=== PATIENT | male | born 1955 | race Caucasian/White ===

== ENCOUNTER 2018-06-30 11:15 | Inpatient (IN) | payer OTHER ==
[~2018-06-30] VITALS: Ht 172.7 cm; Wt 62.1 kg
[2018-06-30] MEDS ORDERED: LEVOTHYROXINE75 MCG ORAL (11:24)
[2018-06-30] MEDS ORDERED: ATORVASTATIN CA20 MG ORAL (11:24)
[2018-06-30] MEDS ORDERED: METOPROLOL TART25 MG ORAL (11:24)
[2018-06-30] MEDS ORDERED: ZYPREXA10 MG ORAL (11:24)
[2018-06-30] MEDS ORDERED: MIRTAZAPINE15 M3 ORAL (11:24)
[2018-06-30] MEDS ORDERED: DILTIAZEM 24HR180 M1 ORAL (11:24)
[2018-06-30] MEDS ORDERED: BENZTROPINE ME0.5 MG PO (11:24)
[2018-06-30] MEDS ORDERED: LISINOPRIL20 MG ORAL (11:24)
[2018-06-30] MEDS ORDERED: ELIQUIS5 MG PO (11:24)
[2018-06-30] MEDS ORDERED: DEPAKOTE ER500 MG ORAL (11:24)
[2018-06-30] MEDS ORDERED: GABAPENTIN100 MG ORAL (11:24)
[2018-06-30] MEDS ORDERED: Pantoprazole Inj IV ONE (11:30)
--- NOTE | 2018-06-30 11:30 | NUR ---
ED Nurse Note: Pt BIBA due to increased level of confusion since this morning. Pt came from board and care. Skin warm to touch. Rectal temp of 103.4 F. A + O x2. No complaints of pain.
--- NOTE | 2018-06-30 11:35 | NUR ---
ED Nurse Note: Notified ERMD of pt refusing straight cath for urine collection.
--- NOTE | 2018-06-30 11:53 | NUR ---
ED Nurse Note: Pt went down to CT.
[2018-06-30 11:54] VITALS: BP 107/76
[2018-06-30] MEDS ORDERED: Acetaminophen 500mg (ES) tab ORAL ONE (12:00)
--- NOTE | 2018-06-30 12:11 | NUR ---
ED Nurse Note: Pt back from CT.
[2018-06-30 12:16] LABS: ANION GAP 10 mmol/L (5-15); BLOOD UREA NITROGEN 26 mg/dL (7-18); CALCIUM 9.4 MG/DL (8.5-10.1); CARBON DIOXIDE 26 MMOL/L (21-32); CHLORIDE 103 MMOL/L (98-107); CREATININE 1.6 MG/DL (0.55-1.30); POTASSIUM 4.7 MMOL/L (3.5-5.1); SODIUM 139 MMOL/L (136-145)
[2018-06-30 12:17] LABS: AMMONIA 22 umol/L (11-32)
[2018-06-30 12:18] LABS: BASOPHILS % (AUTO) 1.6 % (0.0-2.0); EOSINOPHILS % (AUTO) 1.4 % (0.0-3.0); HEMATOCRIT 38.1 % (42.0-52.0); HEMOGLOBIN 12.9 G/DL (14.2-18.0); LYMPHOCYTES % (AUTO) 14.3 % (20.0-45.0); MEAN CORPUSCULAR VOLUME 88 FL (80-99); MONOCYTES % (AUTO) 9.7 % (1.0-10.0); PLATELET COUNT 149 K/UL (150-450); RED BLOOD COUNT 4.31 M/UL (4.70-6.10); RED CELL DISTRIBUTION WIDTH 15.7 % (11.6-14.8); WHITE BLOOD COUNT 7.1 K/UL (4.8-10.8)
[2018-06-30 12:20] LABS: ALANINE AMINOTRANSFERASE 12 U/L (12-78); ALBUMIN 3.3 G/DL (3.4-5.0); ALKALINE PHOSPHATASE 42 U/L (46-116); ASPARTATE AMINO TRANSFERASE 26 U/L (15-37); BILIRUBIN,TOTAL 0.4 MG/DL (0.2-1.0)
--- NOTE | 2018-06-30 12:25 | Diagnostic Imaging Report ---
Indications: Altered level of consciousness Technique: Spiral acquisitions obtained through the brain. Angled axial and coronal 5 x 5 mm slices were reconstructed. Total dose length product 1467.58 mGycm. CTDI vol(s) 70.38 mGy. Dose reduction achieved using automated exposure control Comparison: None. Findings: There is age-related enlargement of the ventricles and extra axial CSF spaces. No acute intracranial hemorrhage nor edema, mass effect, nor midline shift. Normal carcamo-white differentiation. Intact calvarium. Visualized orbits are unremarkable. There is bilateral ethmoid and maxillary sinus disease. The mastoids are clear. Impression: Age-related volume loss Negative for acute intracranial bleed or mass effect The CT scanner at [facility] is accredited by the [employer] and the scans are performed using protocols designed to limit radiation exposure to as low as reasonably achievable to attain images of sufficient resolution adequate for diagnostic evaluation.
--- NOTE | 2018-06-30 12:43 | Diagnostic Imaging Report ---
Indication: Abdominal pain Technique: Spiral acquisitions obtained through the abdomen and pelvis. No oral contrast utilized, per emergency room physician request No IV contrast utilized, per referring physician request.. Multiplanar reconstructions were generated. Total dose length product 532.14 mGycm. CTDIvol(s) 10.51 mGy. Dose reduction achieved using automated exposure control Comparison: None Findings: Lack of enteric contrast limits assessment of the GI tract. Some dense stool is seen distally in the colon. No evidence of diverticulosis or diverticulitis. The appendix is normal except for a distal appendicolith. Prominent borderline dilated gas-filled small bowel loops are seen in the left upper quadrant, without definite transition point. The distal esophagus, stomach, duodenum are unremarkable. No free or loculated intraperitoneal gas or fluid is evident. There are small bilateral inguinal hernias which contain only fat. Lack of IV contrast limits assessment of the solid organs. The liver demonstrates a subcentimeter low-attenuation lesion in segment 3 and another in segment 7 which are too small to characterize. The gallbladder, bile ducts, pancreas, spleen, adrenals are unremarkable. There are a few slightly prominent peripancreatic lymph nodes. There is minimal bilateral perinephric fat stranding. No renal or ureteral calculi, hydronephrosis, or hydroureter. No retroperitoneal or mesenteric mass or adenopathy. No pelvic mass or adenopathy. The bladder is unremarkable. The prostate is somewhat prominent, contains calcifications. The included lung bases demonstrate possible hyperinflation. Some scarring or atelectasis is seen in the inferior lingula. The bones are equivocally osteoporotic, otherwise unremarkable. Impression: Limited assessment of the GI tract, due to lack of enteric contrast administration Prominent gas-filled proximal small bowel loops without definite transition point, nonspecific, could represent mild ileus or enteritis or could be baseline for this patient Possible mild constipation No definite acute process otherwise Possible pulmonary parenchymal hyperinflation. Correlate with clinical history Inferior lingular atelectasis or scarring Minimal nonspecific bilateral perinephric fat stranding Subcentimeter low-attenuation liver lesions, too small to characterize, most likely benign simple cysts or bile hamartomas Mild prostatomegaly with calcifications Possible osteoporosis Incidental finding small bilateral fat-containing inguinal hernias The CT scanner at [facility] is accredited by the [employer] and the scans are performed using protocols designed to limit radiation exposure to as low as reasonably achievable to attain images of sufficient resolution adequate for diagnostic evaluation.
[2018-06-30] MEDS ORDERED: Piperacillin/Tazobactam 4.5 GM in NS 110 ML IVPB ONE (12:45)
--- NOTE | 2018-06-30 13:04 | NUR ---
ED Nurse Note: Lactic acid reflex sent to lab.
--- NOTE | 2018-06-30 14:38 | Emergency Room Report ---
History of Present Illness General Chief Complaint: Altered Level of Consciousness Source: Patient, Medical Record, EMS Present Illness HPI Patient presents emergency department today with acute altered mental status weakness vomiting and fever. Patient is a poor historian and unable to provide much history. However he denies headache. Complains of generalized weakness. No other complaints are noted. Symptoms are noted to be severe. [facility] was noted to be more confused than usual and was brought here further evaluation. Paramedics brought him here. No other modifying factors. No other associated signs and symptoms. No other complaints were noted. Allergies: Coded Allergies: ZIPRASIDONE (Verified Allergy, Unknown, 06/30/18) Uncoded Allergies: RESPERIDONE (Allergy, Unknown, 06/30/18) Patient History Past Medical History: HTN, psych hx - Anxiety, schizophrenia Past Surgical History: none Pertinent Family History: none Social History Narrative stays at a [facility] Reviewed Nursing Documentation: PMH: Agreed; PSxH: Agreed Nursing Documentation-PMH Past Medical History: No History, Except For Hx Hypertension: Yes - hyperlipidemia, hypothyroidism History Of Psychiatric Problem: Yes - anxiety, schizophrenia Review of Systems All Other Systems: negative except mentioned in HPI Physical Exam Vital Signs Date Time Temp Pulse Resp B/P (MAP) Pulse Ox O2 Delivery O2 Flow Rate FiO2 06/30/18 11:13 102.4 87 16 136/79 99 Room Air 06/30/18 11:54 95 Sp02 EP Interpretation: reviewed, normal General Appearance: alert, mild distress - Appears interactive but weak sleepy Head: atraumatic ENT: normal ENT inspection, hearing grossly normal, normal voice Neck: normal inspection, full range of motion, supple, no bony tend Respiratory: normal inspection, lungs clear, normal breath sounds, no respiratory distress, no retraction, no wheezing Cardiovascular #1: regular rate, rhythm, no edema Gastrointestinal: normal inspection, normal bowel sounds, non tender, soft, no guarding, no hernia Genitourinary: no CVA tenderness Musculoskeletal: normal inspection, back normal, normal range of motion Neurologic: normal inspection, alert, responsive, speech normal Psychiatric: normal inspection, judgement/insight normal, depressed affect Skin: normal inspection, normal color, no rash Procedures Critical Care Time Critical Care Time Patient had a critical medical condition which untreated could potentially result in life or limb threatening injury. Total critical care time excluding procedures was approximately 45 minutes. Medical Decision Making Diagnostic Impression: Primary Impression: Altered level of consciousness Additional Impressions: Fever Severe sepsis A-fib Pneumonia ER Course Patient presents emergency department today with altered mental status fever. Differential diagnoses include sepsis, UTI, pneumonia, viral syndrome, CVA, intra-abdominal emergency just to name a few.Given the severity of the patient' s presentation I felt this is a highly complex patient. This patient required extensive workup. Patient's laboratory workup is concerning because shows an elevated lactic acid level this in light of patient's fever suggestive sepsis. This is consistent with severe sepsis. Differential is a critical patient. Patient was started on IV antibiotics. Patient IV antibiotics were started after blood cultures were obtained. Patient's chest appeared that show questionable pneumonia patient was given Zosyn. Patient also has evidence atrial fibrillation with rapid conduction. Although he is not hemodynamically unstable at this time. Given patient's presentation for the patient quite admission. Patient was given fluid bolus 30 mL/kg fluid bolus. Patient's lactic acid level did improve. Focused sepsis exam was performed. Patient had adequate blood pressure vital signs are stable O2 saturation was 97% repeat lactic acid level was improved. Case was discussed in detail with Dr. Pao Hernandez was automation machine builder for admissions. Patient will be admitted to service further treatment. Labs Test 06/30/18 11:35 06/30/18 12:58 White Blood Count 7.1 K/UL (4.8-10.8) Red Blood Count 4.31 M/UL (4.70-6.10) Hemoglobin 12.9 G/DL (14.2-18.0) Hematocrit 38.1 % (42.0-52.0) Mean Corpuscular Volume 88 FL (80-99) Mean Corpuscular Hemoglobin 29.9 PG (27.0-31.0) Mean Corpuscular Hemoglobin Concent 33.8 G/DL (32.0-36.0) Red Cell Distribution Width 15.7 % (11.6-14.8) Platelet Count 149 K/UL (150-450) Mean Platelet Volume 6.8 FL (6.5-10.1) Neutrophils (%) (Auto) 73.0 % (45.0-75.0) Lymphocytes (%) (Auto) 14.3 % (20.0-45.0) Monocytes (%) (Auto) 9.7 % (1.0-10.0) Eosinophils (%) (Auto) 1.4 % (0.0-3.0) Basophils (%) (Auto) 1.6 % (0.0-2.0) Prothrombin Time 10.9 SEC (9.30-11.50) Prothromb Time International Ratio 1.0 (0.9-1.1) Activated Partial Thromboplast Time 26 SEC (23-33) Sodium Level 139 MMOL/L (136-145) Potassium Level 4.7 MMOL/L (3.5-5.1) Chloride Level 103 MMOL/L (98-107) Carbon Dioxide Level 26 MMOL/L (21-32) Anion Gap 10 mmol/L (5-15) Blood Urea Nitrogen 26 mg/dL (7-18) Creatinine 1.6 MG/DL (0.55-1.30) Estimat Glomerular Filtration Rate 43.6 mL/min (>60) Glucose Level 94 MG/DL (74-106) Lactic Acid Level 2.20 mmol/L (0.4-2.0) 1.20 mmol/L (0.66-2.22) Calcium Level 9.4 MG/DL (8.5-10.1) Total Bilirubin 0.4 MG/DL (0.2-1.0) Aspartate Amino Transf (AST/SGOT) 26 U/L (15-37) Alanine Aminotransferase (ALT/SGPT) 12 U/L (12-78) Alkaline Phosphatase 42 U/L (46-116) Ammonia 22 umol/L (11-32) Troponin I 0.014 ng/mL (0.000-0.056) Total Protein 6.7 G/DL (6.4-8.2) Albumin 3.3 G/DL (3.4-5.0) Globulin 3.4 g/dL Albumin/Globulin Ratio 1.0 (1.0-2.7) Lipase 55 U/L (73-393) EKG Diagnostic Results Rate: tachycardiac Rhythm: other - Atrial fibrillation ST Segments: no acute changes Rhythm Strip Diag. Results EP Interpretation: yes Rate: 130 Rhythm: no PVC's, other - Atrial fibrillation, No other ectopy Chest X-Ray Diagnostic Results Chest X-Ray Diagnostic Results : Chest X-Ray Ordered: Yes # of Views/Limited/Complete: 1 View Indication: Shortness of Breath EP Interpretation: Yes Interpretation: no effusion, no pneumothorax, other - Left-sided infiltrate Impression: Other - Pneumonia Electronically Signed by: Electronically signed by Cruz Greene MD Last Vital Signs Date Time Temp Pulse Resp B/P (MAP) Pulse Ox O2 Delivery O2 Flow Rate FiO2 06/30/18 12:44 97.3 06/30/18 11:54 130 31 Room Air 95 06/30/18 11:54 107/76 95 Status: improved Disposition: ADMITTED INPATIENT Condition: Serious Referrals: NON PHYSICIAN (PCP) Cruz Greene MD Jun 30, 2018 14:38
[2018-06-30 14:49] VITALS: BP 91/62
--- NOTE | 2018-06-30 15:28 | Diagnostic Imaging Report ---
Indication: Cough Technique: One view of the chest Comparison: none Findings: There is some atelectasis at the left lung base. Lungs and pleural spaces are otherwise clear. The heart size is upper limits of normal Impression: Left basilar atelectasis versus, less likely, focal patchy infiltrate This agrees with the preliminary interpretation provided by the emergency room physician
[2018-06-30] MEDS ORDERED: LORazepam Inj 2mg/ml 1ml IV ONE (15:30)
--- NOTE | 2018-06-30 16:49 | NUR ---
ED Nurse Note: Gave telephone report to ELLA Barfield.
--- NOTE | 2018-06-30 17:00 | NUR ---
ED Nurse Note: Pt transferred to unit with no acute distress noted. No complaints of pain. Left ER w/ all belongings.
[2018-06-30 17:21] VITALS: BP 126/78
--- NOTE | 2018-06-30 17:39 | NUR ---
NURSE NOTES: paged dr Guzman re ivf , as per dr Pike call him for ivf since pt is to be npo except ice chips meds per dr Pike, dc home meds, keep pt npo (call dr Guzman for ivf) , scd for embolism prevention, tylenol q6 prn
--- NOTE | 2018-06-30 17:40 | NUR ---
NURSE NOTES: received pt sacral intact., aox3, no distress. denies pain. pt does not remember meds specifically. call light within reach. pt wants to go home, relayed to Dr Pike. Addendum: 06/30/18 at 1741 by STEVO WEEKS RN bed in lowest position, locked.
[2018-06-30] MEDS: D5NS 1,000 ML IV SCH (17:47)
--- NOTE | 2018-06-30 17:59 | Consultation ---
Consult Note Consult Note asked to eval for renal failure- Seen in ER Patient presents emergency department today with acute altered mental status weakness vomiting and fever. Patient is a poor historian and unable to provide much history. However he denies headache. Complains of generalized weakness. No other complaints are noted. Symptoms are noted to be severe. Patient apparently stays at a boarding care was noted to be more confused than usual and was brought here further evaluation. Paramedics brought him here. No other modifying factors. No other associated signs and symptoms. No other complaints were noted. Coded Allergies: ZIPRASIDONE (Verified Allergy, Unknown, 06/30/18) Uncoded Allergies: RESPERIDONE (Allergy, Unknown, 06/30/18) Past Medical History: HTN, psych hx - Anxiety, schizophrenia Past Medical History: No History, Except For Hx Hypertension: Yes - hyperlipidemia, hypothyroidism History Of Psychiatric Problem: Yes - anxiety, schizophrenia examined data reviewed Assessment/Plan Renal failure, Dehydration Encephalopathy Psych history HypoThyroidism Mild Anemia NPO IV fluid Hold BP meds Adjusy psych and mind altering meds per psychiatrist watch BP and monitor renal parameters Lisandro Guzman MD Jun 30, 2018 17:59
--- NOTE | 2018-06-30 18:57 | NUR ---
NURSE NOTES: PT WANTS TO EAT, LEFT MSG TO DR QUINTERO WHY PT NEEDS TO BE NPO, AWAITING RESPONSE, IVF RUNNING
--- NOTE | 2018-06-30 19:05 | NUR ---
NURSE NOTES: Received pt. and report from ELLA Barfield. Observe pt. resting in bed with both eyes open. IV site is intact, asymptomatic, and patent. skin care consultant is in placed, bed is in the lowest position and locked, call light within reach. No acute distress noted at this time. Pt. is complaining of hunger. Will contact Dr. Pike regarding pt.'s diet. Will continue plan of care.
--- NOTE | 2018-06-30 19:11 | NUR ---
NURSE NOTES: also left msg to dr Pike re episode of 133hr with afib rvr in er, but now pt is sr 90s. asymptomatic. awatiing response, endorsed to oncoming nurse ELLA Self
--- NOTE | 2018-06-30 19:12 | NUR ---
HAND-OFF: Report given to RENUKA JARAMILLO.
--- NOTE | 2018-06-30 19:29 | NUR ---
NURSE NOTES: Relayed to Dr May re consult, received orders, orders entered, md only wanted to resume cardiac related meds. md aware of episode of afib rvr in ER Addendum: 06/30/18 at 1930 by STEVO WEEKS RN per Dr May no need to resume lisnopril
[2018-06-30 20:00] VITALS: BP 136/83
[2018-06-30] MEDS: Metoprolol Tartrate 50mg tab ORAL SCH (20:36)
[2018-06-30] MEDS: Tamsulosin 0.4mg cap ORAL SCH (20:36)
[2018-07-01 02:47] LABS: APPEARANCE,URINE CLEAR; BILIRUBIN, URINE NEGATIVE (NEGATIVE); COLOR,URINE PALE YELLOW; GLUCOSE, URINE (UA) NEGATIVE (NEGATIVE); KETONES,URINE NEGATIVE (NEGATIVE); LEUKOCYTE ESTERASE ,URINE NEGATIVE (NEGATIVE); NITRITE,URINE NEGATIVE (NEGATIVE); PH,URINE 7 (4.5-8.0); PROTEIN,URINE NEGATIVE (NEGATIVE); UROBILINOGEN,URINE NORMAL MG/DL (0.0-1.0)
[2018-07-01 04:00] VITALS: BP 133/95
[2018-07-01 07:03] LABS: BASOPHILS % (AUTO) 1.1 % (0.0-2.0); EOSINOPHILS % (AUTO) 3.4 % (0.0-3.0); HEMATOCRIT 32.7 % (42.0-52.0); HEMOGLOBIN 10.7 G/DL (14.2-18.0); LYMPHOCYTES % (AUTO) 32.3 % (20.0-45.0); MEAN CORPUSCULAR VOLUME 92 FL (80-99); MONOCYTES % (AUTO) 13.7 % (1.0-10.0); NEUTROPHILS % (AUTO) 49.6 % (45.0-75.0); PLATELET COUNT 123 K/UL (150-450); RED BLOOD COUNT 3.57 M/UL (4.70-6.10); WHITE BLOOD COUNT 5.7 K/UL (4.8-10.8)
[2018-07-01] MEDS: D5NS 1,000 ML IV SCH ×3 (07:08→15:33)
--- NOTE | 2018-07-01 07:45 | NUR ---
NURSE NOTES: Received report from Krystal RN in bed resting, a & o x4, denies any pain. Bed is in lowest position, IV is patent and intact, IV fluid running. Brakes engaged for safety. Call light is within reach. Will continue with the plan of care.
--- NOTE | 2018-07-01 07:45 | NUR ---
HAND-OFF: Report given to ELLA Wall.
[2018-07-01 07:48] LABS: ALANINE AMINOTRANSFERASE 13 U/L (12-78); ALBUMIN 2.8 G/DL (3.4-5.0); ALBUMIN/GLOBULIN RATIO 0.9 (1.0-2.7); ALKALINE PHOSPHATASE 35 U/L (46-116); ANION GAP 5 mmol/L (5-15); ASPARTATE AMINO TRANSFERASE 15 U/L (15-37); BILIRUBIN,TOTAL 0.4 MG/DL (0.2-1.0); BLOOD UREA NITROGEN 27 mg/dL (7-18); CALCIUM 8.9 MG/DL (8.5-10.1); CARBON DIOXIDE 30 MMOL/L (21-32); CHLORIDE 108 MMOL/L (98-107); CHOLESTEROL 108 MG/DL (< 200); CREATINE KINASE 113 U/L (26-308); CREATININE 1.3 MG/DL (0.55-1.30); GAMMA GLUTAMYL TRANSPEPTIDASE 15 U/L (5-85); HDL CHOLESTEROL 44 MG/DL (40-60); POTASSIUM 4.1 MMOL/L (3.5-5.1); SODIUM 143 MMOL/L (136-145); TRIGLYCERIDES 34 MG/DL (30-150)
[2018-07-01 08:00] VITALS: BP 139/72
[2018-07-01] MEDS: Metoprolol Tartrate 50mg tab ORAL SCH ×2 (08:46→21:27)
[2018-07-01] MEDS: dilTIAZem HCl CD 180mg cap ORAL SCH (08:47)
[2018-07-01] MEDS: Eliquis 2.5mg tablet ORAL SCH ×2 (08:48→18:00)
[2018-07-01] MEDS ORDERED: Pantoprazole Inj IVP SCH (09:00)
[2018-07-01 12:00] VITALS: BP 158/95
--- NOTE | 2018-07-01 13:07 | Cardiac Electrophysiology PN ---
Subjective Subjective [id number] Objective Last 24 Hour Vital Signs Date Time Temp Pulse Resp B/P (MAP) Pulse Ox O2 Delivery O2 Flow Rate FiO2 07/01/18 09:00 Room Air 07/01/18 08:47 76 139/72 07/01/18 08:46 76 139/72 07/01/18 08:00 98.1 78 17 139/72 (94) 96 07/01/18 08:00 78 07/01/18 04:00 97.2 92 18 133/95 (108) 96 07/01/18 03:24 84 06/30/18 23:25 83 06/30/18 21:00 Room Air 06/30/18 20:36 70 136/83 06/30/18 20:00 86 06/30/18 20:00 97.5 70 16 136/83 (100) 97 06/30/18 17:28 Room Air 06/30/18 17:24 98.2 100 22 120/74 98 Room Air 06/30/18 17:21 98.7 86 20 126/78 (94) 99 06/30/18 14:49 97.3 136 23 91/62 96 Room Air 95 Intake and Output 06/30/18 07/01/18 19:00 07:00 Intake Total 3100 ml 1080 ml Output Total 400 ml Balance 3100 ml 680 ml Intake Oral 180 ml IV Total 3100 ml 900 ml Output Urine Total 400 ml # Voids 1 # Bowel Movements 1 Laboratory Tests Test 07/01/18 02:35 07/01/18 04:46 Urine Color Pale yellow Urine Appearance Clear Urine pH 7 (4.5-8.0) Urine Specific [place] 1.010 (1.005-1.035) Urine Protein Negative (NEGATIVE) Urine Glucose (UA) Negative (NEGATIVE) Urine Ketones Negative (NEGATIVE) Urine Blood Negative (NEGATIVE) Urine Nitrite Negative (NEGATIVE) Urine Bilirubin Negative (NEGATIVE) Urine Urobilinogen Normal MG/DL (0.0-1.0) Urine Leukocyte Esterase Negative (NEGATIVE) Urine RBC 0 /HPF (0 - 0) Urine WBC 0 /HPF (0 - 0) Urine Squamous Epithelial Cells None /LPF (NONE/OCC) Urine Bacteria None /HPF (NONE) White Blood Count 5.7 K/UL (4.8-10.8) Red Blood Count 3.57 M/UL (4.70-6.10) L Hemoglobin 10.7 G/DL (14.2-18.0) L Hematocrit 32.7 % (42.0-52.0) L Mean Corpuscular Volume 92 FL (80-99) Mean Corpuscular Hemoglobin 29.9 PG (27.0-31.0) Mean Corpuscular Hemoglobin Concent 32.6 G/DL (32.0-36.0) Red Cell Distribution Width 16.0 % (11.6-14.8) H Platelet Count 123 K/UL (150-450) L Mean Platelet Volume 6.8 FL (6.5-10.1) Neutrophils (%) (Auto) 49.6 % (45.0-75.0) Lymphocytes (%) (Auto) 32.3 % (20.0-45.0) Monocytes (%) (Auto) 13.7 % (1.0-10.0) H Eosinophils (%) (Auto) 3.4 % (0.0-3.0) H Basophils (%) (Auto) 1.1 % (0.0-2.0) Sodium Level 143 MMOL/L (136-145) Potassium Level 4.1 MMOL/L (3.5-5.1) Chloride Level 108 MMOL/L (98-107) H Carbon Dioxide Level 30 MMOL/L (21-32) Anion Gap 5 mmol/L (5-15) Blood Urea Nitrogen 27 mg/dL (7-18) H Creatinine 1.3 MG/DL (0.55-1.30) Estimat Glomerular Filtration Rate 55.4 mL/min (>60) Glucose Level 131 MG/DL (74-106) H Hemoglobin A1c 6.1 % (4.3-6.0) H Uric Acid 5.2 MG/DL (2.6-7.2) Calcium Level 8.9 MG/DL (8.5-10.1) Phosphorus Level 3.0 MG/DL (2.5-4.9) Magnesium Level 2.0 MG/DL (1.8-2.4) Total Bilirubin 0.4 MG/DL (0.2-1.0) Gamma Glutamyl Transpeptidase 15 U/L (5-85) Aspartate Amino Transf (AST/SGOT) 15 U/L (15-37) Alanine Aminotransferase (ALT/SGPT) 13 U/L (12-78) Alkaline Phosphatase 35 U/L (46-116) L Total Creatine Kinase 113 U/L (26-308) Troponin I 0.027 ng/mL (0.000-0.056) Pro-B-Type Natriuretic Peptide 2740 pg/mL (0-125) H Total Protein 5.9 G/DL (6.4-8.2) L Albumin 2.8 G/DL (3.4-5.0) L Globulin 3.1 g/dL Albumin/Globulin Ratio 0.9 (1.0-2.7) L Triglycerides Level 34 MG/DL (30-150) Cholesterol Level 108 MG/DL (< 200) LDL Cholesterol 55 mg/dL (<100) HDL Cholesterol 44 MG/DL (40-60) Cholesterol/HDL Ratio 2.5 (3.3-4.4) L Vitamin B12 Level 799 PG/ML (193-986) Folate 7.5 NG/ML (8.6-58.9) L Thyroid Stimulating Hormone (TSH) 4.349 uiU/mL (0.358-3.740) Microbiology Date/Time Source Procedure Growth Status 06/30/18 12:50 Nasal Nares Influenza Types A,B Antigen ([facility]IS) - Final Complete Armin May MD Jul 01, 2018 13:07
--- NOTE | 2018-07-01 15:00 | NUR ---
NURSE NOTES: Patient took IV out twice, refused another IV access, keeps taking out cardiac strips. Patient is non compliace with episodes of confusion. prisoner classification interviewer aware. Notify MD, awaiting reply. Will continue to monitor. Addendum: 07/01/18 at 1705 by STEVO WEEKS RN Dr Pike made aware pt desire to go home and removing iv and tele monitor , asked md if ok to downgrade or dc per md up to cardio ,left msg to Dr May awaiting response
--- NOTE | 2018-07-01 15:01 | Nephrology Progress Note ---
Assessment/Plan Problem List: (1) Dehydration (2) A-fib Assessment Renal failure, Dehydration Encephalopathy Psych history HypoThyroidism Mild Anemia Plan cardiac diet IV fluid adjust BP meds Adjusy psych and mind altering meds per psychiatrist watch BP and monitor renal parameters Subjective ROS Limited/Unobtainable: No Objective Objective Last 24 Hour Vital Signs Date Time Temp Pulse Resp B/P (MAP) Pulse Ox O2 Delivery O2 Flow Rate FiO2 07/01/18 12:00 65 07/01/18 12:00 98.1 65 18 158/95 (116) 95 07/01/18 09:00 Room Air 07/01/18 08:47 76 139/72 07/01/18 08:46 76 139/72 07/01/18 08:00 98.1 78 17 139/72 (94) 96 07/01/18 08:00 78 07/01/18 04:00 97.2 92 18 133/95 (108) 96 07/01/18 03:24 84 06/30/18 23:25 83 06/30/18 21:00 Room Air 06/30/18 20:36 70 136/83 06/30/18 20:00 86 06/30/18 20:00 97.5 70 16 136/83 (100) 97 06/30/18 17:28 Room Air 06/30/18 17:24 98.2 100 22 120/74 98 Room Air 06/30/18 17:21 98.7 86 20 126/78 (94) 99 Intake and Output 06/30/18 07/01/18 18:59 06:59 Intake Total 3100 ml 1080 ml Output Total 400 ml Balance 3100 ml 680 ml Intake Oral 180 ml IV Total 3100 ml 900 ml Output Urine Total 400 ml # Voids 1 # Bowel Movements 1 Laboratory Tests 07/01/18 02:35: Urine Color Pale yellow, Urine Appearance Clear, Urine pH 7, Urine Specific [place] 1.010, Urine Protein Negative, Urine Glucose (UA) Negative, Urine Ketones Negative, Urine Blood Negative, Urine Nitrite Negative, Urine Bilirubin Negative, Urine Urobilinogen Normal, Urine Leukocyte Esterase Negative, Urine RBC 0, Urine WBC 0, Urine Squamous Epithelial Cells None, Urine Bacteria None 07/01/18 04:46: White Blood Count 5.7, Red Blood Count 3.57L, Hemoglobin 10.7L, Hematocrit 32.7L , Mean Corpuscular Volume 92, Mean Corpuscular Hemoglobin 29.9, Mean Corpuscular Hemoglobin Concent 32.6, Red Cell Distribution Width 16.0H, Platelet Count 123L, Mean Platelet Volume 6.8, Neutrophils (%) (Auto) 49.6, Lymphocytes (%) (Auto) 32.3, Monocytes (%) (Auto) 13.7H, Eosinophils (%) (Auto) 3.4H, Basophils (%) (Auto) 1.1, Sodium Level 143, Potassium Level 4.1, Chloride Level 108H, Carbon Dioxide Level 30, Anion Gap 5, Blood Urea Nitrogen 27H, Creatinine 1.3, Estimat Glomerular Filtration Rate 55.4, Glucose Level 131H, Hemoglobin A1c 6.1H, Uric Acid 5.2, Calcium Level 8.9, Phosphorus Level 3.0, Magnesium Level 2.0, Total Bilirubin 0.4, Gamma Glutamyl Transpeptidase 15, Aspartate Amino Transf (AST/SGOT) 15, Alanine Aminotransferase (ALT/SGPT) 13, Alkaline Phosphatase 35L, Total Creatine Kinase 113, Troponin I 0.027, Pro-B- Type Natriuretic Peptide 2740H, Total Protein 5.9L, Albumin 2.8L, Globulin 3.1, Albumin/Globulin Ratio 0.9L, Triglycerides Level 34, Cholesterol Level 108, LDL Cholesterol 55, HDL Cholesterol 44, Cholesterol/HDL Ratio 2.5L, Vitamin B12 Level 799, Folate 7.5L, Thyroid Stimulating Hormone (TSH) 4.349H Height (Feet): 5 Height (Inches): 8.00 Weight (Pounds): 137 General Appearance: no apparent distress Cardiovascular: arrhythmia Respiratory/Chest: decreased breath sounds Abdomen: soft Lisandro Guzman MD Jul 01, 2018 15:01
[2018-07-01 16:00] VITALS: BP 150/82
--- NOTE | 2018-07-01 16:24 | Cardiology Report ---
APPROVED REPORT EXAM: Two-dimensional and M-mode echocardiogram with Doppler and color Doppler. INDICATION TACHYCARDIA M-Mode DIMENSIONS IVSd0.9 (0.7-1.1cm)Left Atrium (MM)3.1 (1.6-4.0cm) LVDd3.8 (3.5-5.6cm)Aortic Root2.7 (2.0-3.7cm) PWd0.9 (0.7-1.1cm)Aortic Cusp Exc.1.6 (1.5-2.0cm) IVSs1.4 cm LVDs2.7 (2.5-4.0cm) PWs0.9 cm Technically difficult study due to poor acoustical windows. Normal left ventricular chamber size, systolic function and wall motion to extent visualized. Left ventricular ejection fraction estimated to be 60-65 %. No evidence of left ventricular hypertrophy. Anterior Echo-free space, may be due to pericardial fat or effusion. All other cardiac chamber sizes within normal limits . Mild aortic valve sclerosis with adequate cusp excursion. Thickened mitral valve leaflets with normal excursion. Mild mitral annulus and aortic root calcification. Pulmonic valve not well visualized. IVC at normal size with physiologic collapse . A color flow and spectral Doppler study was performed and revealed: No aortic regurgitation. Left ventricular diastolic function can not determined due to A-FIB. Trace mitral regurgitation. Mild tricuspid regurgitation. Tricuspid systolic velocities suggests peak right ventricular systolic pressure of 30mmHg.
--- NOTE | 2018-07-01 17:03 | Cardiology Report ---
APPROVED REPORT EKG Measurement Heart [id number] Atrial fibrillation with rapid ventricular response Nonspecific ST abnormality Abnormal ECG
--- NOTE | 2018-07-01 18:15 | Consultation ---
Consult Note Assessment/Plan DICT # [id number] John Mohamud MD Jul 01, 2018 18:15
--- NOTE | 2018-07-01 19:15 | NUR ---
NURSE NOTES: Received pt. from ELLA Wall. Observe pt. resting in bed with both eyes open. Pt. is A/O x3. Pt. removed human anatomy teacher and IV during the day and continues to refuse both. When asked why he refused the human anatomy teacher and IV fluids, pt. answered, "I feel better. I want to go home." Educated pt. on the importance of the human anatomy teacher and IV fluids. Dr. Pike is aware that pt. is refusing. Bed is in the lowest position and locked, call light is within reach. No acute distress noted at this time. Will continue plan of care.
--- NOTE | 2018-07-01 19:28 | NUR ---
HAND-OFF: Report given to ELLA Rice. Endorsed plan of care. Patient is in stable condition.
--- NOTE | 2018-07-01 19:30 | Consultation ---
DATE OF CONSULTATION: 07/01/2018 CARDIOLOGY CONSULTATION CONSULTING PHYSICIAN: Armin May M.D. REFERRING PHYSICIAN: Pao Pike M.D. REASON FOR CONSULTATION: Atrial fibrillation with rapid ventricular response. HISTORY OF PRESENT ILLNESS: The patient is a 63-year-old gentleman with history of hypertension, psychiatric history, and schizophrenia as well as anxiety disorder who was brought to the emergency room for acute altered mental status and weakness, vomiting, and fever. The patient is a very poor historian, unable to provide meaningful information. EKG that was obtained however showed atrial fibrillation with rapid ventricular response, heart rate 132 beats per minute with nonspecific ST abnormalities. At the time of my evaluation, the patient is alert and comfortable. The patient has already converted to sinus rhythm. REVIEW OF SYSTEMS: Review of systems was negative other than what was mentioned in the history of present illness. PAST MEDICAL HISTORY: As mentioned above. FAMILY HISTORY: Noncontributory. SOCIAL HISTORY: He lives in a facility. Does not smoke or drink alcohol. PHYSICAL EXAMINATION: VITAL SIGNS: Show blood pressure of 139/72, pulse 73, respirations 18, and temperature 98.1 even though on admission the patient had temperature as high as 103.4. HEAD AND NECK: Showed no JVD. LUNGS: Clear. CARDIOVASCULAR: Regular S1 and S2 with no gallop or murmur. ABDOMEN: Soft. EXTREMITIES: No pitting edema. LABORATORY AND DIAGNOSTIC DATA: His EKG showed atrial fibrillation with rapid ventricular response, rate of [address] abnormalities. Labs show white count 5.7, hematocrit 10.7, hematocrit 33, and platelet count of 123. Sodium is 142, potassium 4.1, BUN of 27, creatinine 1.3, and glucose of 131. Troponin is negative x2. ASSESSMENT AND PLAN: 1. Atrial fibrillation with rapid ventricular response. There is no clear history of atrial fibrillation, the patient already converted to sinus rhythm. This could have been secondary to acute pneumonic process. Continue Cardizem 180 mg daily, Eliquis 5 mg b.i.d., and metoprolol 50 mg b.i.d. It is of note that based on his medical regimen, the patient most likely has history of hypertension as well as atrial fibrillation. 2. Fever of 103. The patient currently is afebrile. Further evaluation by ID. 3. Benign prostatic hypertrophy on Flomax. 4. Hypertension. Continue Cardizem CD 180 mg daily and metoprolol 50 mg b.i.d. Thank you very much, Dr. Pike, for allowing me to participate in the care of this patient. Please do not hesitate to contact me for any questions regarding my evaluation. Sincerely, Armin May M.D. DR: Annabel JOB#: [id number] CC:
[2018-07-01 20:00] VITALS: BP 154/93
--- NOTE | 2018-07-01 20:06 | NUR ---
CASE MANAGEMENT: REVIEW 63/M ALMITAA FROM CC: ALOC SI: AMS . DEHYDRATION T 103.4 HR 130 RR 31 BP 136/79 SAT 95% ROOM AIR H/H 12.9/38.1 LACTIC ACID 2.20 IS: NS IVF BOLUS X1 PROTONIX IV X1 ZOFRAN IV X1 ZOSYN IV X1 ATIVAN IV X1 PATIENT ADMITTED TO TELEMETRY UNIT 06/30/2018 DCP: PATIENT IS FROM HOME
[2018-07-01] MEDS: Tamsulosin 0.4mg cap ORAL SCH (21:26)
--- NOTE | 2018-07-01 21:45 | Consultation ---
DATE OF CONSULTATION: 07/01/2018 PULMONARY CONSULTATION CONSULTING PHYSICIAN: John Mohamud M.D. REFERRING PHYSICIAN: Pao Pike M.D. REASON FOR CONSULTATION: Shortness of breath. HISTORY OF PRESENT ILLNESS: The patient is a very poor historian. History is obtained through chart review. Records are also limited. He denies any prior medical history, but has a stated history of anxiety, schizophrenic disorder, hypertension, and possible atrial fibrillation. He came in with altered mental status, vomiting, and fever. He was complaining of generalized weakness and multiple vague complaints. He was seen and evaluated in the ER. He had a FUO type of workup done. Chest x-ray was unrevealing and CT of the abdomen and pelvis was done as well. CT scan of the abdomen and pelvis showed prominent gas-filled loops of bowel, nonspecific, possible transition point, mild constipation, no other process parenchymal hyperinflation, some atelectasis at the lung base, perinephric fat stranding, minimal and low-attenuation liver lesions, prostatomegaly, and possible osteoporosis. Chest x-ray done as stated showed left base infiltrate versus atelectasis, more likely to be atelectasis. CT and in fact on the abdomen, you could see the chest with atelectasis. Volume loss was noted on CT of the brain. Echocardiogram was done, once again is a limited study showed EF of 60% to 65%. The patient with atrial fibrillation. The patient denies any known past medical history, but on the record review he was on Eliquis, Cogentin, Synthroid, lisinopril, and multiple other medications. He currently denies any complaints. Denies fevers, chills, chest pain, shortness with headache, dizziness, nausea, vomiting, diarrhea, constipation, abdominal pain, or urinary complaints. PAST MEDICAL HISTORY: Per review of records, AFib, hypertension, hypothyroidism, and schizophrenia versus other psychiatric disorder. PAST SURGICAL HISTORY: Unknown, the patient denies. SOCIAL HISTORY: Denies tobacco, alcohol, or drug use. FAMILY HISTORY: Noncontributory. REVIEW OF SYSTEMS: Negative other than history of present illness. PHYSICAL EXAMINATION: VITAL SIGNS: Temperature 98.1, pulse 65, blood pressure 158/95, respiratory rate 18, and saturating 95% on room air. GENERAL: He is in no acute distress. Awake, alert, and oriented x2. HEENT: Normocephalic and atraumatic. Oropharynx is clear with moist mucous membranes. NECK: Supple without lymphadenopathy or jugular venous distention. CHEST: Clear to auscultation bilaterally without wheezing, rales, or rhonchi. HEART: Irregularly irregular. ABDOMEN: Soft, nontender, and nondistended. EXTREMITIES: No cyanosis, clubbing, or edema. ANCILLARY DATA: White count 7.1, hemoglobin 12.9, and platelet count 149. INR 1. D-dimer 0.22. Sodium 142, potassium 4.1, chloride 108, bicarbonate 30, BUN 27, creatinine 1.3, and glucose 131. Hemoglobin A1c 6.1. Lactic acid 2.2, now 1.2. LFTs within normal limits. BNP 2740. Albumin 3.1. TSH 4.39. Urinalysis is negative. Rapid influenza A and B from the ER is negative. Chest x-ray, left base atelectasis versus infiltrate. CT of the abdomen, minimal perinephric fat stranding. Atelectasis at the left base. Possible transition point for mild constipation. No other significant findings. Echocardiogram limited, LVEF 60% to 65% and AFib. CT of the brain with volume loss. ASSESSMENT: The patient is a 63-year-old male with schizophrenia, AFib, hypothyroidism, and hypertension, presenting with fevers of unknown origin and altered mental status. He is stable here, afebrile, and does not appear to be infected. The atelectasis on the chest x-ray is likely just atelectasis and not an infiltrate because it is at the base of the chest which is visible in chest cuts on the CT abdomen and pelvis. PROBLEM LIST: 1. Atelectasis. 2. No evidence of respiratory infection. 3. Reported fever of unknown origin, afebrile here in the hospital. 4. AFib. 5. Hypertension. 6. Hypothyroidism. 7. Lactic acidosis, resolved. 8. MACARENA, resolved. 9. Dehydration. TREATMENT PLAN: 1. Optimize pulmonary hygiene/mobilize as tolerated. 2. IV fluid hydration. 3. Observe off antibiotics. 4. Follow up cultures. 5. Aspiration precautions. 6. Eliquis for DVT prophylaxis. 7. Follow up neuropsychology medical consultant's recommendations. Dr. Pike, thank you for allowing me to assist in the care of your patient. If I may be of any assistance, please do not hesitate to ask. John Mohamud M.D. DR: RAEGAN JOB#: [id number] CC:
--- NOTE | 2018-07-01 23:02 | NUR ---
NURSE NOTES: Attempted manager cardiac cath and IV insertion. Pt. continued to refuse both.
[2018-07-02] VITALS: BP 153/89
--- NOTE | 2018-07-02 01:45 | History and Physical Report ---
DATE OF ADMISSION: 06/30/2018 HISTORY OF PRESENT ILLNESS: The patient is admitted for altered mental status. The patient is confused. Also reported possible syncope. The patient has a history of hypertension. Denies nausea, vomiting, diarrhea or pain. Denies shortness of breath. Denies cough. The patient also denies chills. The patient is admitted for possible sepsis, azotemia, possible pneumonia on the chest x-ray. The patient also had one bout of possible atrial fibrillation with . The patient denies shortness of breath. Denies chills. Denies fever. PAST MEDICAL HISTORY: Significant for hyperlipidemia, hypertension, mood disorder, hypothyroidism, psychosis, and history of atrial fibrillation. MEDICATIONS: Eliquis, Lipitor, Cogentin, , metoprolol, mirtazapine, and lorazepam. ALLERGIES: . FAMILY HISTORY: Noncontributory. SOCIAL HISTORY: Denies smoking, alcohol, or illicit drugs. REVIEW OF SYSTEMS: HEENT: Denies headaches. RESPIRATORY: Denies shortness of breath. Denies cough. CARDIOVASCULAR: Denies chest pain. GASTROINTESTINAL: Denies nausea, vomiting, or diarrhea. EXTREMITIES: Denies pain. CENTRAL NERVOUS SYSTEM: Denies changes in vision or speech pattern. Did have syncopal episode and dizziness. Denies headache. Denies diplopia. PHYSICAL EXAMINATION: VITAL SIGNS: Temperature 98.1, pulse is 78, and blood pressure 139/72. HEENT: PERRLA. NECK: Supple. No lymphadenopathy. CHEST: Clear to auscultation. CARDIOVASCULAR: Regular rate and rhythm. No murmurs or extra sounds. GASTROINTESTINAL: Soft, nontender, and nondistended. No organomegaly. EXTREMITIES: No edema. Moves all four extremities. NEUROLOGIC: Sensory intact to light touch. Reflexes are equal on both sides. LABORATORY DATA: WBC of 7.1, hemoglobin 12.9, and platelets of 149. Sodium 142, potassium 4.1, BUN of 27, creatinine 1.3. Troponin 0.027. ASSESSMENT AND PLAN: Azotemia, possible syncope, altered mental status, hypertension, AMS, rule out sepsis, possible pneumonia on the chest x-ray, acute renal failure. I have asked Dr. Cedeno, Dr. Ayaz Price, Dr. Guzman, and Dr. Mohamud to see the patient for the above-mentioned diagnoses and treatment. Antibiotics per Dr. Price. Dr. Mohamud also will follow the patient for possible pneumonia. Dr. Cedeno for atrial fibrillation with RVR and Dr. Ayaz Price has also been taking care of the sepsis. I will also consult Dr. Guzman for the azotemia. Pao Pike M.D. DR: VICKY JOB#: [id number] CC:
[2018-07-02 04:00] VITALS: BP 135/83
--- NOTE | 2018-07-02 07:19 | NUR ---
NURSE NOTES: Received patient from Krystal RN, in bed resting, denies any pain. No s/s of acute distress noted. Patient still continues to refuse cardiac nurse and IV insertion. Will continue to try. Bed is in lowest position, brakes engaged for safety. Call light is within reach. Will continue with the plan of care.
--- NOTE | 2018-07-02 07:25 | NUR ---
HAND-OFF: Report given to ELLA Wall.
[2018-07-02 08:00] VITALS: BP 144/69
--- NOTE | 2018-07-02 08:30 | NUR ---
NURSE NOTES: Patient is compliant, playground monitor back on, new IV inserted, Patient eat breakfast 60%. Will continue with the plan of care.
[2018-07-02] MEDS: Eliquis 2.5mg tablet ORAL SCH ×2 (09:06→17:56)
[2018-07-02] MEDS: dilTIAZem HCl CD 180mg cap ORAL SCH (09:07)
[2018-07-02] MEDS: Metoprolol Tartrate 50mg tab ORAL SCH ×2 (09:07→20:40)
[2018-07-02 09:22] LABS: CHOLESTEROL 141 MG/DL (< 200); HDL CHOLESTEROL 57 MG/DL (40-60); TRIGLYCERIDES 84 MG/DL (30-150)
--- NOTE | 2018-07-02 10:20 | Cardiac Electrophysiology PN ---
Assessment/Plan Assessment/Plan 1. Atrial fibrillation with rapid ventricular response. Already converted to sinus rhythm. This could have been secondary to acute pneumonic process. Continue Cardizem 180 mg daily, Eliquis 5 mg b.i.d., and metoprolol 50 mg b.i.d. 2. Hypertension. Continue Cardizem CD 180 mg daily and metoprolol 50 mg b.i.d. 3. Fever of 103. The patient currently is afebrile. Further evaluation by ID. 4. Benign prostatic hypertrophy on Flomax. Subjective Subjective Feeling better. No CP or SOB.Refused tele overnight. Remained in SR since this am. Objective Last 24 Hour Vital Signs Date Time Temp Pulse Resp B/P (MAP) Pulse Ox O2 Delivery O2 Flow Rate FiO2 07/02/18 09:07 116 122/75 07/02/18 09:07 116 122/75 07/02/18 04:00 97.5 70 20 135/83 (100) 94 07/02/18 00:00 97.2 70 20 153/89 (110) 93 07/01/18 21:27 72 154/93 07/01/18 21:00 Room Air 07/01/18 20:00 97.3 72 20 154/93 (113) 94 07/01/18 16:00 97.9 65 16 150/82 (104) 96 07/01/18 12:00 65 07/01/18 12:00 98.1 65 18 158/95 (116) 95 Intake and Output 07/01/18 07/02/18 19:00 07:00 Intake Total 600 ml 200 ml Balance 600 ml 200 ml Intake Oral 600 ml 200 ml # Voids 1 2 # Bowel Movements 1 1 Laboratory Tests Test 07/01/18 15:15 07/02/18 08:50 D-Dimer 0.22 mg/L FEU (0.00-0.49) Pro-B-Type Natriuretic Peptide 2607 pg/mL (0-125) H Triglycerides Level 84 MG/DL (30-150) Cholesterol Level 141 MG/DL (< 200) LDL Cholesterol 67 mg/dL (<100) HDL Cholesterol 57 MG/DL (40-60) Cholesterol/HDL Ratio 2.5 (3.3-4.4) L Microbiology Date/Time Source Procedure Growth Status 06/30/18 12:50 Nasal Nares Influenza Types A,B Antigen (CHRIS) - Final Complete 06/30/18 14:20 Rectum VRE Culture - Final NO VANCOMYCIN RESISTANT ENTEROCOCCUS ... Complete 06/30/18 14:20 Rectum - Final NO CARBAPENEM-RESISTANT ENTEROBACTERI... Complete Objective HEAD AND NECK: No JVD. LUNGS: Clear. CARDIOVASCULAR: Regular S1 and S2 with no gallop or murmur. ABDOMEN: Soft. EXTREMITIES: No pitting edema. Armin May MD Jul 02, 2018 10:20
--- NOTE | 2018-07-02 10:45 | General Progress Note ---
Assessment/Plan Problem List: (1) A-fib ICD Codes: I48.91 - Unspecified atrial fibrillation SNOMED: 78690132 (2) Altered level of consciousness ICD Codes: R40.4 - Transient alteration of awareness SNOMED: 0469803 (3) Dehydration ICD Codes: E86.0 - Dehydration SNOMED: 00340858 (4) Pneumonia ICD Codes: J18.9 - Pneumonia, unspecified organism SNOMED: 237494655 Status: progressing Assessment/Plan afebrile abx per dr harmon ams improved psychiatric history Subjective ROS Limited/Unobtainable: Yes Allergies: Coded Allergies: ZIPRASIDONE (Verified Allergy, Unknown, 06/30/18) Uncoded Allergies: RESPERIDONE (Allergy, Unknown, 06/30/18) Objective Last 24 Hour Vital Signs Date Time Temp Pulse Resp B/P (MAP) Pulse Ox O2 Delivery O2 Flow Rate FiO2 07/02/18 09:07 116 122/75 07/02/18 09:07 116 122/75 07/02/18 09:00 Room Air 07/02/18 08:00 97.7 72 20 144/69 (94) 95 07/02/18 08:00 72 07/02/18 04:00 97.5 70 20 135/83 (100) 94 07/02/18 00:00 97.2 70 20 153/89 (110) 93 07/01/18 21:27 72 154/93 07/01/18 21:00 Room Air 07/01/18 20:00 97.3 72 20 154/93 (113) 94 07/01/18 16:00 97.9 65 16 150/82 (104) 96 07/01/18 12:00 65 07/01/18 12:00 98.1 65 18 158/95 (116) 95 Intake and Output 07/01/18 07/02/18 19:00 07:00 Intake Total 600 ml 200 ml Balance 600 ml 200 ml Intake Oral 600 ml 200 ml # Voids 1 2 # Bowel Movements 1 1 Laboratory Tests 07/01/18 15:15: D-Dimer 0.22 07/02/18 08:50: Pro-B-Type Natriuretic Peptide 2607H, Triglycerides Level 84, Cholesterol Level 141, LDL Cholesterol 67, HDL Cholesterol 57, Cholesterol/HDL Ratio 2.5L Height (Feet): 5 Height (Inches): 8.00 Weight (Pounds): 137 Neck: supple Cardiovascular: normal rate Respiratory/Chest: lungs clear Pao Pike MD Jul 02, 2018 10:45
[2018-07-02] MEDS: D5NS 1,000 ML IV SCH (10:48)
[2018-07-02 12:00] VITALS: BP 140/71
--- NOTE | 2018-07-02 13:56 | Nephrology Progress Note ---
Assessment/Plan Problem List: (1) Dehydration (2) A-fib Assessment Renal failure, Dehydration Encephalopathy Psych history HypoThyroidism Mild Anemia Plan cardiac diet IV fluid adjust BP meds Adjusy psych and mind altering meds per psychiatrist watch BP and monitor renal parameters Subjective ROS Limited/Unobtainable: No Constitutional: Reports: malaise Objective Objective Last 24 Hour Vital Signs Date Time Temp Pulse Resp B/P (MAP) Pulse Ox O2 Delivery O2 Flow Rate FiO2 07/02/18 12:00 97.6 71 20 140/71 (94) 93 07/02/18 09:07 116 122/75 07/02/18 09:07 116 122/75 07/02/18 09:00 Room Air 07/02/18 08:00 97.7 72 20 144/69 (94) 95 07/02/18 08:00 72 07/02/18 04:00 97.5 70 20 135/83 (100) 94 07/02/18 00:00 97.2 70 20 153/89 (110) 93 07/01/18 21:27 72 154/93 07/01/18 21:00 Room Air 07/01/18 20:00 97.3 72 20 154/93 (113) 94 07/01/18 16:00 97.9 65 16 150/82 (104) 96 Intake and Output 07/01/18 07/02/18 19:00 07:00 Intake Total 600 ml 200 ml Balance 600 ml 200 ml Intake Oral 600 ml 200 ml # Voids 1 2 # Bowel Movements 1 1 Laboratory Tests 07/01/18 15:15: D-Dimer 0.22 07/02/18 08:50: Pro-B-Type Natriuretic Peptide 2607H, Triglycerides Level 84, Cholesterol Level 141, LDL Cholesterol 67, HDL Cholesterol 57, Cholesterol/HDL Ratio 2.5L Height (Feet): 5 Height (Inches): 8.00 Weight (Pounds): 137 General Appearance: no apparent distress Objective no change Lisandro Guzman MD Jul 02, 2018 13:56
[2018-07-02 16:00] VITALS: BP 143/83
--- NOTE | 2018-07-02 17:15 | NUR ---
CASE MANAGEMENT: REVIEW 07/02/2018 SI: AMS . DEHYDRATION T 98.2 HR 62 RR 20 B/P 143/83 DWAYNE 95% ON RA BNP: 2607 IS: IVF @ 50 mL/HR PROTONIX PO Q12H FLOMAX PO QHS ELIQUIS PO BID CARDIZEM PO QD FOLATE PO QD LOPRESSOR PO Q12H TELE STATUS DCP: PATIENT IS FROM HOME
--- NOTE | 2018-07-02 19:46 | NUR ---
HAND-OFF: Report given to ELLA Powers. Patient is in stable condition.
--- NOTE | 2018-07-02 19:47 | NUR ---
NURSE NOTES: Received report from ELLA Wall. Patient awake, alert and verbally responsive. No SOB, no acute distress, denies any pain nor any discomfort at this time. IV site on R FA #22, patent and intact connected to D5 1/2 at 50 cc/hr. Bed at lowest position, call light within reach. Instructed to press call light for any assistance, verbalized understanding. Will continue plan of care.
[2018-07-02 20:00] VITALS: BP 167/77
[2018-07-02] MEDS: Tamsulosin 0.4mg cap ORAL SCH (20:40)
--- NOTE | 2018-07-02 21:27 | Pulmonology Progress Note ---
Assessment/Plan Problems: (1) Fever (2) A-fib (3) Dehydration (4) Altered level of consciousness Assessment/Plan ASSESSMENT: The patient is a 63-year-old male with schizophrenia, AFib, hypothyroidism, and hypertension, presenting with fevers of unknown origin and altered mental status. He is stable here, afebrile, and does not appear to be infected. The atelectasis on the chest x-ray is likely just atelectasis and not an infiltrate because it is at the base of the chest which is visible in chest cuts on the CT abdomen and pelvis. PROBLEM LIST: 1. Atelectasis. 2. No evidence of respiratory infection. 3. Reported fever of unknown origin, afebrile here in the hospital. 4. Paroxysmal AFib. 5. Hypertension. 6. Hypothyroidism. 7. Lactic acidosis, resolved. 8. MACARENA, resolved. 9. Dehydration. TREATMENT PLAN: 1. Optimize pulmonary hygiene/mobilize as tolerated. 2. IV fluid hydration. 3. Observe off antibiotics. 4. Follow up cultures. 5. Aspiration precautions. 6. Eliquis for DVT prophylaxis. 7. Follow up air quality consultant's recommendations Subjective Allergies: Coded Allergies: ZIPRASIDONE (Verified Allergy, Unknown, 06/30/18) Uncoded Allergies: RESPERIDONE (Allergy, Unknown, 06/30/18) Subjective AFVSS in NSR No cough, no SOB, no CP, no FC Objective Last 24 Hour Vital Signs Date Time Temp Pulse Resp B/P (MAP) Pulse Ox O2 Delivery O2 Flow Rate FiO2 07/02/18 20:40 63 167/77 07/02/18 20:00 76 07/02/18 16:00 98.2 62 20 143/83 (103) 95 07/02/18 16:00 61 07/02/18 12:00 97.6 71 20 140/71 (94) 93 07/02/18 12:00 67 07/02/18 09:07 116 122/75 07/02/18 09:07 116 122/75 07/02/18 09:00 Room Air 07/02/18 08:00 97.7 72 20 144/69 (94) 95 07/02/18 08:00 72 07/02/18 04:00 97.5 70 20 135/83 (100) 94 07/02/18 00:00 97.2 70 20 153/89 (110) 93 07/01/18 21:27 72 154/93 Intake and Output 07/01/18 07/02/18 19:00 07:00 Intake Total 600 ml 200 ml Balance 600 ml 200 ml Intake Oral 600 ml 200 ml # Voids 1 2 # Bowel Movements 1 1 General Appearance: WD/WN, no acute distress HEENT: normocephalic, atraumatic, anicteric, mucous membranes moist Respiratory/Chest: chest wall non-tender, lungs clear, normal breath sounds, no respiratory distress, no accessory muscle use Cardiovascular: normal peripheral pulses, normal rate, regular rhythm Abdomen: normal bowel sounds, soft, non tender, no organomegaly, non distended , no mass Extremities: no cyanosis, no clubbing, no edema Microbiology Date/Time Source Procedure Growth Status 06/30/18 11:35 Blood Blood Culture - Preliminary NO GROWTH AFTER 48 HOURS Resulted 06/30/18 11:20 Blood Blood Culture - Preliminary NO GROWTH AFTER 48 HOURS Resulted 06/30/18 14:20 Nasal Nares MRSA Culture - Final NO METHICILLIN RESISTANT STAPH AUREUS... Complete 06/30/18 12:50 Nasal Nares Influenza Types A,B Antigen (CHRIS) - Final Complete 06/30/18 14:20 Rectum VRE Culture - Final NO VANCOMYCIN RESISTANT ENTEROCOCCUS ... Complete 06/30/18 14:20 Rectum - Final NO CARBAPENEM-RESISTANT ENTEROBACTERI... Complete Laboratory Tests 07/02/18 08:50: Pro-B-Type Natriuretic Peptide 2607H, Triglycerides Level 84, Cholesterol Level 141, LDL Cholesterol 67, HDL Cholesterol 57, Cholesterol/HDL Ratio 2.5L Current Medications Medications (Trade) Dose Ordered Sig/Eduardo Route PRN Reason Start Time Stop Time Status Last Admin Dose Admin Acetaminophen (Tylenol) 650 mg Q6H PRN ORAL Mild Pain/Temp > 100.5 06/30/18 17:45 07/30/18 17:44 Apixaban (Eliquis) 5 mg BID ORAL 07/01/18 09:00 07/31/18 08:59 07/02/18 17:56 Dextrose/Sodium Chloride 1,000 ml @ 50 mls/hr Q20H IV 07/01/18 15:00 07/31/18 14:59 07/02/18 10:48 Diltiazem HCl (Cardizem CD) 180 mg DAILY ORAL 07/01/18 09:00 07/31/18 08:59 07/02/18 09:07 Folic Acid (Folate) 3 mg DAILY ORAL 07/01/18 10:00 07/31/18 09:59 07/02/18 09:05 Metoprolol Tartrate (Lopressor) 50 mg Q12HR ORAL 06/30/18 21:00 07/30/18 20:59 07/02/18 20:40 Pantoprazole (Protonix) 40 mg EVERY 12 HOURS ORAL 07/01/18 21:00 07/31/18 20:59 07/02/18 20:40 Tamsulosin HCl (Flomax) 0.4 mg BEDTIME ORAL 06/30/18 21:00 07/30/18 20:59 07/02/18 20:40 John Mohamud MD Jul 02, 2018 21:27
[2018-07-03] VITALS: BP 160/68
--- NOTE | 2018-07-03 03:19 | NUR ---
NURSE NOTES: Patient asleep, breathing even and unlabored, no s/sx of pain nor any discomfort at this time. Bed at lowest position, call light within reach. Will continue to monitor.
[2018-07-03 04:00] VITALS: BP 143/95
[2018-07-03] MEDS: D5NS 1,000 ML IV SCH (06:28)
--- NOTE | 2018-07-03 07:19 | NUR ---
HAND-OFF: Report given to ELLA Ramirez. Endorsed plan of care.
--- NOTE | 2018-07-03 07:30 | NUR ---
NURSE NOTES: Received report from Dorcas JARAMILLO. Pt is awake, alert, oriented x3, resting in bed at high meng's position, breakfast tray in front of pt. On room air with no respiratory distress. Denies pain or any other discomfort. Skin is intact. IV access on right FA #22G infusing D5NS at 50ml/hr. Urinal at bedside. Call light is placed within easy reach, bed in lowest position, two side rails up, brakes engaged, alarm on. Will continue to monitor pt, and follow plan of care per MD order and protocol.
[2018-07-03 08:00] VITALS: BP 156/82
[2018-07-03] MEDS: Eliquis 2.5mg tablet ORAL SCH ×2 (08:58→17:37)
[2018-07-03] MEDS: dilTIAZem HCl CD 180mg cap ORAL SCH (08:58)
[2018-07-03] MEDS: Metoprolol Tartrate 50mg tab ORAL SCH ×2 (08:59→21:44)
[2018-07-03 12:00] VITALS: BP 139/71
--- NOTE | 2018-07-03 12:03 | General Progress Note ---
Assessment/Plan Problem List: (1) A-fib ICD Codes: I48.91 - Unspecified atrial fibrillation SNOMED: 47340626 (2) Altered level of consciousness ICD Codes: R40.4 - Transient alteration of awareness SNOMED: 6545004 (3) Dehydration ICD Codes: E86.0 - Dehydration SNOMED: 60093326 (4) Pneumonia ICD Codes: J18.9 - Pneumonia, unspecified organism SNOMED: 128832094 Status: progressing Assessment/Plan arrythmia no acute events abx per dr harmon ams psychiatric history Subjective ROS Limited/Unobtainable: Yes Allergies: Coded Allergies: ZIPRASIDONE (Verified Allergy, Unknown, 06/30/18) Uncoded Allergies: RESPERIDONE (Allergy, Unknown, 06/30/18) Objective Last 24 Hour Vital Signs Date Time Temp Pulse Resp B/P (MAP) Pulse Ox O2 Delivery O2 Flow Rate FiO2 07/03/18 09:00 Room Air 07/03/18 08:58 56 156/85 07/03/18 08:00 97.5 56 18 156/82 (106) 94 07/03/18 08:00 80 07/03/18 04:00 64 07/03/18 04:00 97.9 64 18 143/95 (111) 95 07/03/18 00:00 60 07/03/18 00:00 98.0 60 18 160/68 (98) 95 07/02/18 21:00 Room Air 07/02/18 20:40 63 167/77 07/02/18 20:00 98.1 63 19 167/77 (107) 95 07/02/18 20:00 76 07/02/18 16:00 98.2 62 20 143/83 (103) 95 07/02/18 16:00 61 Intake and Output 07/02/18 07/03/18 18:59 06:59 Intake Total 750 ml 240 ml Output Total 1700 ml 1300 ml Balance -950 ml -1060 ml Intake Oral 750 ml 240 ml Output Urine Total 1700 ml 1300 ml # Bowel Movements 1 Height (Feet): 5 Height (Inches): 8.00 Weight (Pounds): 137 Neck: supple Cardiovascular: normal rate Respiratory/Chest: lungs clear Abdomen: soft Pao Pike MD Jul 03, 2018 12:03
--- NOTE | 2018-07-03 13:05 | Cardiac Electrophysiology PN ---
Assessment/Plan Assessment/Plan 1. Atrial fibrillation with rapid ventricular response. Converted to sinus rhythm. This could have been secondary to acute pneumonic process. Continue Cardizem 180 mg daily, Eliquis 5 mg b.i.d., and metoprolol 50 mg b.i.d. 2. Hypertension. Continue Cardizem CD 180 mg daily and metoprolol 50 mg b.i.d. 3. Fever of 103. Afebrile. Off abx by ID. 4. Benign prostatic hypertrophy on Flomax. REJI RN Subjective Subjective No CP or SOB. Remained in SR. No events Objective Last 24 Hour Vital Signs Date Time Temp Pulse Resp B/P (MAP) Pulse Ox O2 Delivery O2 Flow Rate FiO2 07/03/18 09:00 Room Air 07/03/18 08:58 56 156/85 07/03/18 08:00 97.5 56 18 156/82 (106) 94 07/03/18 08:00 80 07/03/18 04:00 64 07/03/18 04:00 97.9 64 18 143/95 (111) 95 07/03/18 00:00 60 07/03/18 00:00 98.0 60 18 160/68 (98) 95 07/02/18 21:00 Room Air 07/02/18 20:40 63 167/77 07/02/18 20:00 98.1 63 19 167/77 (107) 95 07/02/18 20:00 76 07/02/18 16:00 98.2 62 20 143/83 (103) 95 07/02/18 16:00 61 Intake and Output 07/02/18 07/03/18 18:59 06:59 Intake Total 750 ml 240 ml Output Total 1700 ml 1300 ml Balance -950 ml -1060 ml Intake Oral 750 ml 240 ml Output Urine Total 1700 ml 1300 ml # Bowel Movements 1 Microbiology Date/Time Source Procedure Growth Status 06/30/18 14:20 Nasal Nares MRSA Culture - Final NO METHICILLIN RESISTANT STAPH AUREUS... Complete 06/30/18 14:20 Rectum VRE Culture - Final NO VANCOMYCIN RESISTANT ENTEROCOCCUS ... Complete 06/30/18 14:20 Rectum - Final NO CARBAPENEM-RESISTANT ENTEROBACTERI... Complete Objective HEAD AND NECK: No JVD. LUNGS: Clear. CARDIOVASCULAR: Regular S1 and S2 with no gallop or murmur. ABDOMEN: Soft. EXTREMITIES: No pitting edema. Armin May MD Jul 03, 2018 13:05
[2018-07-03 16:00] VITALS: BP 152/73
--- NOTE | 2018-07-03 17:29 | Nephrology Progress Note ---
Assessment/Plan Problem List: (1) Dehydration (2) A-fib (3) Anemia Assessment Renal failure, Dehydration Encephalopathy Psych history HypoThyroidism Mild Anemia Plan no labs today cardiac diet IV fluid adjust BP meds Adjusy psych and mind altering meds per psychiatrist watch BP and monitor renal parameters Subjective ROS Limited/Unobtainable: No Objective Objective Last 24 Hour Vital Signs Date Time Temp Pulse Resp B/P (MAP) Pulse Ox O2 Delivery O2 Flow Rate FiO2 07/03/18 16:00 97.2 63 20 152/73 (99) 97 07/03/18 16:00 66 07/03/18 12:00 68 07/03/18 12:00 97.5 65 20 139/71 (93) 97 07/03/18 09:00 Room Air 07/03/18 08:58 56 156/85 07/03/18 08:00 97.5 56 18 156/82 (106) 94 07/03/18 08:00 80 07/03/18 04:00 64 07/03/18 04:00 97.9 64 18 143/95 (111) 95 07/03/18 00:00 60 07/03/18 00:00 98.0 60 18 160/68 (98) 95 07/02/18 21:00 Room Air 07/02/18 20:40 63 167/77 07/02/18 20:00 98.1 63 19 167/77 (107) 95 07/02/18 20:00 76 Intake and Output 07/02/18 07/03/18 19:00 07:00 Intake Total 750 ml 240 ml Output Total 1700 ml 1300 ml Balance -950 ml -1060 ml Intake Oral 750 ml 240 ml Output Urine Total 1700 ml 1300 ml # Bowel Movements 1 Height (Feet): 5 Height (Inches): 8.00 Weight (Pounds): 137 General Appearance: no apparent distress Cardiovascular: arrhythmia Respiratory/Chest: decreased breath sounds Abdomen: soft Objective no change Lisandro Guzman MD Jul 03, 2018 17:29
--- NOTE | 2018-07-03 19:39 | NUR ---
HAND-OFF: Report given to Kaleigh JARAMILLO. Pt is resting in bed in stable condition. Endorsed plan of care.
[2018-07-03 20:00] VITALS: BP 125/69
--- NOTE | 2018-07-03 20:04 | Pulmonology Progress Note ---
Assessment/Plan Assessment/Plan Pulmonary Progress Note Assessment/Plan Problems: (1) Fever (2) A-fib (3) Dehydration (4) Altered level of consciousness Assessment/Plan ASSESSMENT: The patient is a 63-year-old male with schizophrenia, AFib, hypothyroidism, and hypertension, presenting with fevers of unknown origin and altered mental status. He is stable here, afebrile, and does not appear to be infected. The atelectasis on the chest x-ray is likely just atelectasis and not an infiltrate because it is at the base of the chest which is visible in chest cuts on the CT abdomen and pelvis. PROBLEM LIST: 1. Atelectasis. 2. No evidence of respiratory infection. 3. Reported fever of unknown origin, afebrile here in the hospital. 4. Paroxysmal AFib. 5. Hypertension. 6. Hypothyroidism. 7. Lactic acidosis, resolved. 8. MACARENA, resolved. 9. Dehydration. TREATMENT PLAN: 1. Optimize pulmonary hygiene/mobilize as tolerated. 2. IV fluid hydration. 3. Observe off antibiotics. 4. Follow up cultures. 5. Aspiration precautions. 6. Eliquis for DVT prophylaxis. 7. Follow up healthcare network consultant's recommendations Subjective Allergies: Coded Allergies: ZIPRASIDONE (Verified Allergy, Unknown, 06/30/18) Uncoded Allergies: RESPERIDONE (Allergy, Unknown, 06/30/18) Subjective AFVSS in NSR No cough, no SOB, no CP, no FC Objective Vital Signs Noted General Appearance: WD/WN, no acute distress HEENT: normocephalic, atraumatic, anicteric, mucous membranes moist Respiratory/Chest: chest wall non-tender, lungs clear, normal breath sounds, no respiratory distress, no accessory muscle use Cardiovascular: normal peripheral pulses, normal rate, regular rhythm Abdomen: normal bowel sounds, soft, non tender, no organomegaly, non distended , no mass Extremities: no cyanosis, no clubbing, no edema Microbiology Date/Time Source Procedure Growth Status 06/30/18 11:35 Blood Blood Culture - Preliminary NO GROWTH AFTER 48 HOURS Resulted 06/30/18 11:20 Blood Blood Culture - Preliminary NO GROWTH AFTER 48 HOURS Resulted 06/30/18 14:20 Nasal Nares MRSA Culture - Final NO METHICILLIN RESISTANT STAPH AUREUS... Complete 06/30/18 12:50 Nasal Nares Influenza Types A,B Antigen (CHRIS) - Final Complete 06/30/18 14:20 Rectum VRE Culture - Final NO VANCOMYCIN RESISTANT ENTEROCOCCUS ... Complete 06/30/18 14:20 Rectum - Final NO CARBAPENEM-RESISTANT ENTEROBACTERI... Complete Laboratory Tests 07/02/18 08:50: Pro-B-Type Natriuretic Peptide 2607H, Triglycerides Level 84, Cholesterol Level 141, LDL Cholesterol 67, HDL Cholesterol 57, Cholesterol/HDL Ratio 2.5L Current Medications Medications (Trade) Dose Ordered Sig/Eduardo Route PRN Reason Start Time Stop Time Status Last Admin Dose Admin Acetaminophen (Tylenol) 650 mg Q6H PRN ORAL Mild Pain/Temp > 100.5 06/30/18 17:45 07/30/18 17:44 Apixaban (Eliquis) 5 mg BID ORAL 07/01/18 09:00 07/31/18 08:59 07/02/18 17:56 Dextrose/Sodium Chloride 1,000 ml @ 50 mls/hr Q20H IV 07/01/18 15:00 07/31/18 14:59 07/02/18 10:48 Diltiazem HCl (Cardizem CD) 180 mg DAILY ORAL 07/01/18 09:00 07/31/18 08:59 07/02/18 09:07 Folic Acid (Folate) 3 mg DAILY ORAL 07/01/18 10:00 07/31/18 09:59 07/02/18 09:05 Metoprolol Tartrate (Lopressor) 50 mg Q12HR ORAL 06/30/18 21:00 07/30/18 20:59 07/02/18 20:40 Pantoprazole (Protonix) 40 mg EVERY 12 HOURS ORAL 07/01/18 21:00 07/31/18 20:59 07/02/18 20:40 Tamsulosin HCl (Flomax) 0.4 mg BEDTIME ORAL 06/30/18 21:00 07/30/18 20:59 07/02/18 20:40 Subjective ROS Limited/Unobtainable: No Allergies: Coded Allergies: ZIPRASIDONE (Verified Allergy, Unknown, 06/30/18) Uncoded Allergies: RESPERIDONE (Allergy, Unknown, 06/30/18) Objective Last 24 Hour Vital Signs Date Time Temp Pulse Resp B/P (MAP) Pulse Ox O2 Delivery O2 Flow Rate FiO2 07/03/18 16:00 97.2 63 20 152/73 (99) 97 07/03/18 16:00 66 07/03/18 12:00 68 07/03/18 12:00 97.5 65 20 139/71 (93) 97 07/03/18 09:00 Room Air 07/03/18 08:58 56 156/85 07/03/18 08:00 97.5 56 18 156/82 (106) 94 07/03/18 08:00 80 07/03/18 04:00 64 07/03/18 04:00 97.9 64 18 143/95 (111) 95 07/03/18 00:00 60 07/03/18 00:00 98.0 60 18 160/68 (98) 95 07/02/18 21:00 Room Air 07/02/18 20:40 63 167/77 Intake and Output 07/02/18 07/03/18 19:00 07:00 Intake Total 750 ml 240 ml Output Total 1700 ml 1300 ml Balance -950 ml -1060 ml Intake Oral 750 ml 240 ml Output Urine Total 1700 ml 1300 ml # Bowel Movements 1 Current Medications Medications (Trade) Dose Ordered Sig/Eduardo Route PRN Reason Start Time Stop Time Status Last Admin Dose Admin Acetaminophen (Tylenol) 650 mg Q6H PRN ORAL Mild Pain/Temp > 100.5 06/30/18 17:45 07/30/18 17:44 Apixaban (Eliquis) 5 mg BID ORAL 07/01/18 09:00 07/31/18 08:59 07/03/18 17:37 Dextrose/Sodium Chloride 1,000 ml @ 50 mls/hr Q20H IV 07/01/18 15:00 07/31/18 14:59 07/03/18 06:28 Diltiazem HCl (Cardizem CD) 180 mg DAILY ORAL 07/01/18 09:00 07/31/18 08:59 07/03/18 08:58 Folic Acid (Folate) 3 mg DAILY ORAL 07/01/18 10:00 07/31/18 09:59 07/03/18 08:58 Metoprolol Tartrate (Lopressor) 50 mg Q12HR ORAL 06/30/18 21:00 07/30/18 20:59 07/02/18 20:40 Pantoprazole (Protonix) 40 mg EVERY 12 HOURS ORAL 07/01/18 21:00 07/31/18 20:59 07/03/18 08:58 Tamsulosin HCl (Flomax) 0.4 mg BEDTIME ORAL 06/30/18 21:00 07/30/18 20:59 07/02/18 20:40 Jeromy Snow MD Jul 03, 2018 20:04
--- NOTE | 2018-07-03 21:29 | Consultation ---
History of Present Illness General Chief Complaint: Altered Level of Consciousness Present Illness Allergies: Coded Allergies: ZIPRASIDONE (Verified Allergy, Unknown, 06/30/18) Uncoded Allergies: RESPERIDONE (Allergy, Unknown, 06/30/18) Medication History Scheduled Apixaban (Eliquis), 5 MG PO BID, (Reported) Atorvastatin Calcium* (Atorvastatin Calcium*), 20 MG ORAL BEDTIME, (Reported) Benztropine Mesylate* (Cogentin*), 0.5 MG PO BID, (Reported) Diltiazem Hcl (Diltiazem 24HR Er), 180 MG ORAL DAILY, (Reported) Divalproex Sodium* (Depakote Er*), 500 MG ORAL EVERY 12 HOURS, (Reported) Gabapentin* (Gabapentin*), 100 MG ORAL THREE TIMES A DAY, (Reported) Levothyroxine Sodium* (Levothyroxine Sodium*), 75 MCG ORAL DAILY, (Reported) Lisinopril (Lisinopril*), 20 MG ORAL DAILY, (Reported) Metoprolol Tartrate* (Metoprolol Tartrate*), 25 MG ORAL EVERY 12 HOURS, ( Reported) Mirtazapine* (Mirtazapine*), 30 MG ORAL BEDTIME, (Reported) Olanzapine* (Zyprexa*), 20 MG ORAL DAILY, (Reported) Patient History Healthcare decision maker Ju Resuscitation status Advanced Directive on File Physical Exam Last 24 Hour Vital Signs Date Time Temp Pulse Resp B/P (MAP) Pulse Ox O2 Delivery O2 Flow Rate FiO2 07/03/18 16:00 97.2 63 20 152/73 (99) 97 07/03/18 16:00 66 07/03/18 12:00 68 07/03/18 12:00 97.5 65 20 139/71 (93) 97 07/03/18 09:00 Room Air 07/03/18 08:58 56 156/85 07/03/18 08:00 97.5 56 18 156/82 (106) 94 07/03/18 08:00 80 07/03/18 04:00 64 07/03/18 04:00 97.9 64 18 143/95 (111) 95 07/03/18 00:00 60 07/03/18 00:00 98.0 60 18 160/68 (98) 95 Intake and Output 07/02/18 07/03/18 19:00 07:00 Intake Total 750 ml 240 ml Output Total 1700 ml 1300 ml Balance -950 ml -1060 ml Intake Oral 750 ml 240 ml Output Urine Total 1700 ml 1300 ml # Bowel Movements 1 Height (Feet): 5 Height (Inches): 8.00 Weight (Pounds): 137 Medications Current Medications Medications (Trade) Dose Ordered Sig/Eduardo Route PRN Reason Start Time Stop Time Status Last Admin Dose Admin Acetaminophen (Tylenol) 650 mg Q6H PRN ORAL Mild Pain/Temp > 100.5 06/30/18 17:45 07/30/18 17:44 Apixaban (Eliquis) 5 mg BID ORAL 07/01/18 09:00 07/31/18 08:59 07/03/18 17:37 Dextrose/Sodium Chloride 1,000 ml @ 50 mls/hr Q20H IV 07/01/18 15:00 07/31/18 14:59 07/03/18 06:28 Diltiazem HCl (Cardizem CD) 180 mg DAILY ORAL 07/01/18 09:00 07/31/18 08:59 07/03/18 08:58 Folic Acid (Folate) 3 mg DAILY ORAL 07/01/18 10:00 07/31/18 09:59 07/03/18 08:58 Metoprolol Tartrate (Lopressor) 50 mg Q12HR ORAL 06/30/18 21:00 07/30/18 20:59 07/02/18 20:40 Pantoprazole (Protonix) 40 mg EVERY 12 HOURS ORAL 07/01/18 21:00 07/31/18 20:59 07/03/18 08:58 Tamsulosin HCl (Flomax) 0.4 mg BEDTIME ORAL 06/30/18 21:00 07/30/18 20:59 07/02/18 20:40 Assessment/Plan Assessment/Plan Hematology/Oncology Consultation Requesting : Pao Pike Date of Service: 07/03/18 Reason for consultation: Anemia and Thrombocytopenia HISTORY OF PRESENT ILLNESS: The patient is admitted for altered mental status. The patient is confused. Also reported possible syncope. The patient has a history of hypertension. Denies nausea, vomiting, diarrhea or pain. Denies shortness of breath. Denies cough. The patient also denies chills. The patient is admitted for possible sepsis, azotemia, possible pneumonia on the chest x-ray. The patient denies shortness of breath. Denies chills. Denies fever. Hematology/Oncology was consulted for Anemia and Thrombocytopenia. PAST MEDICAL HISTORY: Significant for hyperlipidemia, hypertension, mood disorder, hypothyroidism, psychosis, and history of atrial fibrillation. MEDICATIONS: Eliquis, Lipitor, Cogentin, metoprolol, mirtazapine, and lorazepam. ALLERGIES: as noted in chart FAMILY HISTORY: Noncontributory. SOCIAL HISTORY: Denies smoking, alcohol, or illicit drugs. REVIEW OF SYSTEMS: HEENT: Denies headaches. RESPIRATORY: Denies shortness of breath. Denies cough. CARDIOVASCULAR: Denies chest pain. GASTROINTESTINAL: Denies nausea, vomiting, or diarrhea. EXTREMITIES:Denies pain. CENTRAL NERVOUS SYSTEM: Denies changes in vision or speech pattern. Did have syncopal episode and dizziness. Denies headache. Denies diplopia. PHYSICAL EXAMINATION: VITAL SIGNS: Temperature 98.1, pulse is 78, and blood pressure 139/72. HEENT: PERRLA. NECK: Supple. No lymphadenopathy. CHEST: Clear to auscultation. CARDIOVASCULAR: Regular rate and rhythm. No murmurs or extra sounds. GASTROINTESTINAL: Soft, nontender, and nondistended. No organomegaly. EXTREMITIES: No edema. Moves all four extremities. NEUROLOGIC: Sensory intact to light touch. Reflexes are equal on both sides. LABORATORY DATA: WBC of 7.1, hemoglobin 12.9, and platelets of 149. ASSESSMENT AND PLAN: # Anemia of chronic disease (or of iron deficiency) due to underlying chronic medical issues, multifactorial --> Anemia workup has been ordered --> No evidence of hemolysis is noted, peripheral smear has been reviewed. --> Hgb goal >7. Transfuse prn. --> Epogen or iron at this time is not particularly indicated --> Medications have been reviewed # Thrombocytopenia - potential causes multifactorial, evaluate liver and viral etiologies to begin, also could be related to underlying medications patient has received. --> Hep panel and HIV ordered --> US abd to evaluate for cirrhosis and hsm ordered --> Peripheral smear ordered to evaluate for blasts /schistocytes --> abx and other meds have been reviewed --> ok for ppx if plt >50k w/ either heparin or lovenox --> Transfuse if Plt < 20k and fever, or if Plt < 10k without fever # Atelectasis, Optimize pulmonary hygiene/mobilize as tolerated. # Reported fever of unknown origin, afebrile here in the hospital. # Paroxysmal AFib, cardiology recs # Hypertension. # Hypothyroidism. # Lactic acidosis, resolved. # MACARENA, resolved. The timing of this note does not necessarily reflect the time of the patient was seen. Greatly appreciate consultation! Bennie Goss MD Jul 03, 2018 21:29
[2018-07-03] MEDS: Tamsulosin 0.4mg cap ORAL SCH (21:43)
[2018-07-04] VITALS: BP 140/69
--- NOTE | 2018-07-04 01:16 | NUR ---
NURSE NOTES: Received pt from ELLA Ramirez. Pt awake. alert, and talkative. Bed in lowest position. Call light within reach. Will continue to monitor
--- NOTE | 2018-07-04 01:17 | NUR ---
HAND-OFF: Report given to ELLA Friedman. Pt stable.
[2018-07-04] MEDS: D5NS 1,000 ML IV SCH (03:46)
[2018-07-04 04:00] VITALS: BP 127/86
--- NOTE | 2018-07-04 06:59 | NUR ---
patient on monitor sr with pac and pvc. at 7am vent to afib controlled. ekg done. report endorce to nurse Susan.
--- NOTE | 2018-07-04 07:30 | NUR ---
NURSE NOTES: Received report from Idlaia JARAMILLO. Pt is awake, alert, oriented x 3, on room air with no respiratory distress. Per shift production supervisor report, pt converted to AFib with RVR from SR at 0700. ECG was done, result also displayed AFib with RVR. Dr May was contacted and informed of this rhythm conversion. Pt denies any chest pain, SOB or any other discomfort. IV access on left FA #20G, infusing D5NS at 50ml/hr. Pt is resting in bed in semi meng's position. Urinal at bedside. Skin is intact. Call light is placed within easy reach, bed in lowest position, two side rails up, brakes engaged, alarm on. Will continue to monitor pt. Currently awaiting for response and further orders/instruction from Dr May.
[2018-07-04] MEDS: dilTIAZem HCl CD 180mg cap ORAL SCH (07:53)
[2018-07-04] MEDS: Metoprolol Tartrate 50mg tab ORAL SCH (07:54)
[2018-07-04] MEDS: Eliquis 2.5mg tablet ORAL SCH ×2 (07:54→17:45)
[2018-07-04 08:00] VITALS: BP 122/80
[2018-07-04] MEDS ORDERED: dilTIAZem HCl 25mg/5ml Inj IVP SCH (08:30)
[2018-07-04] MEDS ORDERED: dilTIAZem HCl 50mg/10ml Inj IVP SCH (08:30)
--- NOTE | 2018-07-04 09:27 | NUR ---
CASE MANAGEMENT: REVIEW 07/04/2018 SI: AMS . DEHYDRATION T 98.2 HR 50 RR 18 B/P 140/69 SATS 95% ON RA NO LABS TODAY IS: IVF @ 50 mL/HR PROTONIX PO Q12H FLOMAX PO QHS ELIQUIS PO BID CARDIZEM PO QD FOLATE PO QD LOPRESSOR PO Q12H TELE STATUS DCP: PATIENT IS FROM HOME
--- NOTE | 2018-07-04 09:30 | NUR ---
NURSE NOTES: Per Dr May's order, IV Diltiazem 10mg IV push was administered along with 0900 medication. Heart rhythm remains AFib however rate is controlled at a lower rate 90's-109. Pt denies any chest pain or shortness of breath, resting in bed, watching TV.
[2018-07-04 09:35] LABS: HEMATOCRIT 39.2 % (42.0-52.0); HEMOGLOBIN 13.2 G/DL (14.2-18.0); MEAN CORPUSCULAR VOLUME 89 FL (80-99); PLATELET COUNT 155 K/UL (150-450); RED BLOOD COUNT 4.41 M/UL (4.70-6.10); RED CELL DISTRIBUTION WIDTH 14.5 % (11.6-14.8); WHITE BLOOD COUNT 5.8 K/UL (4.8-10.8)
[2018-07-04 10:14] LABS: ALANINE AMINOTRANSFERASE 13 U/L (12-78); ALBUMIN 3.1 G/DL (3.4-5.0); ALBUMIN/GLOBULIN RATIO 0.9 (1.0-2.7); ALKALINE PHOSPHATASE 57 U/L (46-116); ANION GAP 7 mmol/L (5-15); ASPARTATE AMINO TRANSFERASE 17 U/L (15-37); BILIRUBIN,TOTAL 0.6 MG/DL (0.2-1.0); BLOOD UREA NITROGEN 15 mg/dL (7-18); CALCIUM 9.2 MG/DL (8.5-10.1); CARBON DIOXIDE 25 MMOL/L (21-32); CHLORIDE 97 MMOL/L (98-107); CREATININE 0.9 MG/DL (0.55-1.30); FERRITIN 60 NG/ML (8-388); PHOSPHORUS 2.8 MG/DL (2.5-4.9); POTASSIUM 3.8 MMOL/L (3.5-5.1); SODIUM 129 MMOL/L (136-145)
[2018-07-04 10:31] LABS: % IRON SATURATION 16 % (15-50); IRON 45 ug/dL (50-175); TOTAL IRON BINDING CAPACITY 280 ug/dL (250-450)
[2018-07-04 12:00] VITALS: BP 140/79
--- NOTE | 2018-07-04 12:51 | Nephrology Progress Note ---
Assessment/Plan Problem List: (1) Dehydration (2) A-fib (3) Anemia (4) Hyponatremia Assessment Renal failure, Dehydration Encephalopathy Psych history HypoThyroidism Mild Anemia Plan Radha U os S Os Uric acid cardiac diet IV fluid adjust BP meds Adjusy psych and mind altering meds per psychiatrist watch BP and monitor renal parameters Subjective ROS Limited/Unobtainable: No Constitutional: Reports: malaise Objective Objective Last 24 Hour Vital Signs Date Time Temp Pulse Resp B/P (MAP) Pulse Ox O2 Delivery O2 Flow Rate FiO2 07/04/18 10:59 82 07/04/18 09:00 Room Air 07/04/18 08:31 120 07/04/18 08:00 98.4 69 18 122/80 (94) 99 07/04/18 08:00 128 07/04/18 07:54 137 127/86 07/04/18 07:53 137 127/86 07/04/18 04:00 95 07/04/18 04:00 98.6 68 18 127/86 (100) 98 07/04/18 00:00 98.2 50 18 140/69 (92) 95 07/04/18 00:00 68 07/03/18 21:44 71 125/69 07/03/18 21:00 Room Air 07/03/18 20:00 98.6 71 18 125/69 (87) 97 07/03/18 20:00 72 07/03/18 16:00 97.2 63 20 152/73 (99) 97 07/03/18 16:00 66 Intake and Output 07/03/18 07/04/18 18:59 06:59 Intake Total 360 ml Output Total 800 ml Balance -440 ml Intake Oral 360 ml Output Urine Total 800 ml # Voids 3 Laboratory Tests 07/04/18 09:22: White Blood Count 5.8, Red Blood Count 4.41L, Hemoglobin 13.2L, Hematocrit 39.2L , Mean Corpuscular Volume 89, Mean Corpuscular Hemoglobin 30.0, Mean Corpuscular Hemoglobin Concent 33.8, Red Cell Distribution Width 14.5, Platelet Count 155, Mean Platelet Volume 6.9, Neutrophils (%) (Auto) , Lymphocytes (%) ( Auto) , Monocytes (%) (Auto) , Eosinophils (%) (Auto) , Basophils (%) (Auto) , Differential Total Cells Counted 100, Neutrophils % (Manual) 56, Lymphocytes % ( Manual) 25, Monocytes % (Manual) 12H, Eosinophils % (Manual) 6H, Basophils % ( Manual) 1, Band Neutrophils 0, Platelet Estimate Adequate, Platelet Morphology Normal, Red Blood Cell Morphology Normal, Anisocytosis , Sodium Level 129L, Potassium Level 3.8, Chloride Level 97L, Carbon Dioxide Level 25, Anion Gap 7, Blood Urea Nitrogen 15, Creatinine 0.9, Estimat Glomerular Filtration Rate > 60 , Glucose Level 135H, Calcium Level 9.2, Phosphorus Level 2.8, Magnesium Level 2.0, Iron Level 45L, Total Iron Binding Capacity 280, Percent Iron Saturation 16 , Unsaturated Iron Binding 235, Ferritin 60, Total Bilirubin 0.6, Aspartate Amino Transf (AST/SGOT) 17, Alanine Aminotransferase (ALT/SGPT) 13, Alkaline Phosphatase 57, C-Reactive Protein, Quantitative 1.5H, Pro-B-Type Natriuretic Peptide 715H, Total Protein 6.7, Albumin 3.1L, Globulin 3.6, Albumin/Globulin Ratio 0.9L Height (Feet): 5 Height (Inches): 8.00 Weight (Pounds): 137 Cardiovascular: tachycardia Respiratory/Chest: decreased breath sounds Abdomen: soft Objective no change Lisandro Guzman MD Jul 04, 2018 12:51
--- NOTE | 2018-07-04 13:35 | NUR ---
NURSE NOTES: Pt was seen at bedside by Dr May. Adjustment made to Metoprol dose. No other further orders at this time. Addendum: 07/04/18 at 1601 by FRANCES MEIER RN CORRECTION TO PREVIOUS NOTE: Spelling correction to Metoprolol. Pt is resting in bed with no reports of chest pain, shortness of breath or any other discomfort.
--- NOTE | 2018-07-04 13:35 | Cardiac Electrophysiology PN ---
Assessment/Plan Assessment/Plan 1. Atrial fibrillation with rapid ventricular response. Converted to sinus rhythm but back in atrial fib. This could have been secondary to acute pneumonic process. Continue Cardizem 180 mg daily, Eliquis 5 mg bid and increase metoprolol to 100 mg b.i.d. 2. Hypertension. Continue Cardizem CD 180 mg daily and metoprolol 100 mg b.i.d. 3. Fever of 103. Afebrile. Off abx by ID. 4. Benign prostatic hypertrophy on Flomax. REJI RN Subjective Subjective No CP or SOB. In atrial fib up to 150s. Got 10 iv Cardizem. Objective Last 24 Hour Vital Signs Date Time Temp Pulse Resp B/P (MAP) Pulse Ox O2 Delivery O2 Flow Rate FiO2 07/04/18 10:59 82 07/04/18 09:00 Room Air 07/04/18 08:31 120 07/04/18 08:00 98.4 69 18 122/80 (94) 99 07/04/18 08:00 128 07/04/18 07:54 137 127/86 07/04/18 07:53 137 127/86 07/04/18 04:00 95 07/04/18 04:00 98.6 68 18 127/86 (100) 98 07/04/18 00:00 98.2 50 18 140/69 (92) 95 07/04/18 00:00 68 07/03/18 21:44 71 125/69 07/03/18 21:00 Room Air 07/03/18 20:00 98.6 71 18 125/69 (87) 97 07/03/18 20:00 72 07/03/18 16:00 97.2 63 20 152/73 (99) 97 07/03/18 16:00 66 Intake and Output 07/03/18 07/04/18 18:59 06:59 Intake Total 360 ml Output Total 800 ml Balance -440 ml Intake Oral 360 ml Output Urine Total 800 ml # Voids 3 Laboratory Tests Test 07/04/18 09:22 White Blood Count 5.8 K/UL (4.8-10.8) Red Blood Count 4.41 M/UL (4.70-6.10) L Hemoglobin 13.2 G/DL (14.2-18.0) L Hematocrit 39.2 % (42.0-52.0) L Mean Corpuscular Volume 89 FL (80-99) Mean Corpuscular Hemoglobin 30.0 PG (27.0-31.0) Mean Corpuscular Hemoglobin Concent 33.8 G/DL (32.0-36.0) Red Cell Distribution Width 14.5 % (11.6-14.8) Platelet Count 155 K/UL (150-450) Mean Platelet Volume 6.9 FL (6.5-10.1) Neutrophils (%) (Auto) % (45.0-75.0) Lymphocytes (%) (Auto) % (20.0-45.0) Monocytes (%) (Auto) % (1.0-10.0) Eosinophils (%) (Auto) % (0.0-3.0) Basophils (%) (Auto) % (0.0-2.0) Differential Total Cells Counted 100 Neutrophils % (Manual) 56 % (45-75) Lymphocytes % (Manual) 25 % (20-45) Monocytes % (Manual) 12 % (1-10) H Eosinophils % (Manual) 6 % (0-3) H Basophils % (Manual) 1 % (0-2) Band Neutrophils 0 % (0-8) Platelet Estimate Adequate Platelet Morphology Normal Red Blood Cell Morphology Normal Anisocytosis Sodium Level 129 MMOL/L (136-145) L Potassium Level 3.8 MMOL/L (3.5-5.1) Chloride Level 97 MMOL/L (98-107) L Carbon Dioxide Level 25 MMOL/L (21-32) Anion Gap 7 mmol/L (5-15) Blood Urea Nitrogen 15 mg/dL (7-18) Creatinine 0.9 MG/DL (0.55-1.30) Estimat Glomerular Filtration Rate > 60 mL/min (>60) Glucose Level 135 MG/DL (74-106) H Calcium Level 9.2 MG/DL (8.5-10.1) Phosphorus Level 2.8 MG/DL (2.5-4.9) Magnesium Level 2.0 MG/DL (1.8-2.4) Iron Level 45 ug/dL (50-175) L Total Iron Binding Capacity 280 ug/dL (250-450) Percent Iron Saturation 16 % (15-50) Unsaturated Iron Binding 235 ug/dL (112-346) Ferritin 60 NG/ML (8-388) Total Bilirubin 0.6 MG/DL (0.2-1.0) Aspartate Amino Transf (AST/SGOT) 17 U/L (15-37) Alanine Aminotransferase (ALT/SGPT) 13 U/L (12-78) Alkaline Phosphatase 57 U/L (46-116) C-Reactive Protein, Quantitative 1.5 mg/dL (0.00-0.90) H Pro-B-Type Natriuretic Peptide 715 pg/mL (0-125) H Total Protein 6.7 G/DL (6.4-8.2) Albumin 3.1 G/DL (3.4-5.0) L Globulin 3.6 g/dL Albumin/Globulin Ratio 0.9 (1.0-2.7) L Objective HEAD AND NECK: No JVD. LUNGS: Clear. CARDIOVASCULAR: Irregular S1 and S2 with no gallop or murmur. ABDOMEN: Soft. EXTREMITIES: No pitting edema. Armin May MD Jul 04, 2018 13:35
--- NOTE | 2018-07-04 14:01 | Pulmonology Progress Note ---
Assessment/Plan Assessment/Plan Pulmonary Progress Note Assessment/Plan Problems: (1) Fever (2) A-fib (3) Dehydration (4) Altered level of consciousness Assessment/Plan ASSESSMENT: The patient is a 63-year-old male with schizophrenia, AFib, hypothyroidism, and hypertension, presenting with fevers of unknown origin and altered mental status. He is stable here, afebrile, and does not appear to be infected. The atelectasis on the chest x-ray is likely just atelectasis and not an infiltrate because it is at the base of the chest which is visible in chest cuts on the CT abdomen and pelvis. PROBLEM LIST: 1. Atelectasis. 2. No evidence of respiratory infection. 3. Reported fever of unknown origin, afebrile here in the hospital. 4. Paroxysmal AFib. 5. Hypertension. 6. Hypothyroidism. 7. Lactic acidosis, resolved. 8. MACARENA, resolved. 9. Dehydration. TREATMENT PLAN: 1. Optimize pulmonary hygiene/mobilize as tolerated. 2. IV fluid hydration. 3. Observe off antibiotics. 4. Follow up cultures. 5. Aspiration precautions. 6. Eliquis for DVT prophylaxis. 7. Follow up eap consultant's recommendations Subjective Allergies: Coded Allergies: ZIPRASIDONE (Verified Allergy, Unknown, 06/30/18) Uncoded Allergies: RESPERIDONE (Allergy, Unknown, 06/30/18) Subjective AFVSS in NSR No cough, no SOB, no CP, no FC Objective Vital Signs Noted General Appearance: WD/WN, no acute distress HEENT: normocephalic, atraumatic, anicteric, mucous membranes moist Respiratory/Chest: chest wall non-tender, lungs clear, normal breath sounds, no respiratory distress, no accessory muscle use Cardiovascular: normal peripheral pulses, normal rate, regular rhythm Abdomen: normal bowel sounds, soft, non tender, no organomegaly, non distended , no mass Extremities: no cyanosis, no clubbing, no edema Microbiology Date/Time Source Procedure Growth Status 06/30/18 11:35 Blood Blood Culture - Preliminary NO GROWTH AFTER 48 HOURS Resulted 06/30/18 11:20 Blood Blood Culture - Preliminary NO GROWTH AFTER 48 HOURS Resulted 06/30/18 14:20 Nasal Nares MRSA Culture - Final NO METHICILLIN RESISTANT STAPH AUREUS... Complete 06/30/18 12:50 Nasal Nares Influenza Types A,B Antigen (CHRIS) - Final Complete 06/30/18 14:20 Rectum VRE Culture - Final NO VANCOMYCIN RESISTANT ENTEROCOCCUS ... Complete 06/30/18 14:20 Rectum - Final NO CARBAPENEM-RESISTANT ENTEROBACTERI... Complete Laboratory Tests 07/02/18 08:50: Pro-B-Type Natriuretic Peptide 2607H, Triglycerides Level 84, Cholesterol Level 141, LDL Cholesterol 67, HDL Cholesterol 57, Cholesterol/HDL Ratio 2.5L Current Medications Medications (Trade) Dose Ordered Sig/Eduardo Route PRN Reason Start Time Stop Time Status Last Admin Dose Admin Acetaminophen (Tylenol) 650 mg Q6H PRN ORAL Mild Pain/Temp > 100.5 06/30/18 17:45 07/30/18 17:44 Apixaban (Eliquis) 5 mg BID ORAL 07/01/18 09:00 07/31/18 08:59 07/02/18 17:56 Dextrose/Sodium Chloride 1,000 ml @ 50 mls/hr Q20H IV 07/01/18 15:00 07/31/18 14:59 07/02/18 10:48 Diltiazem HCl (Cardizem CD) 180 mg DAILY ORAL 07/01/18 09:00 07/31/18 08:59 07/02/18 09:07 Folic Acid (Folate) 3 mg DAILY ORAL 07/01/18 10:00 07/31/18 09:59 07/02/18 09:05 Metoprolol Tartrate (Lopressor) 50 mg Q12HR ORAL 06/30/18 21:00 07/30/18 20:59 07/02/18 20:40 Pantoprazole (Protonix) 40 mg EVERY 12 HOURS ORAL 07/01/18 21:00 07/31/18 20:59 07/02/18 20:40 Tamsulosin HCl (Flomax) 0.4 mg BEDTIME ORAL 06/30/18 21:00 07/30/18 20:59 07/02/18 20:40 Subjective ROS Limited/Unobtainable: No Allergies: Coded Allergies: RISPERIDONE (Unverified Allergy, Unknown, 07/04/18) ZIPRASIDONE (Verified Allergy, Unknown, 06/30/18) Uncoded Allergies: RESPERIDONE (Allergy, Unknown, 06/30/18) Objective Last 24 Hour Vital Signs Date Time Temp Pulse Resp B/P (MAP) Pulse Ox O2 Delivery O2 Flow Rate FiO2 07/04/18 10:59 82 07/04/18 09:00 Room Air 07/04/18 08:31 120 07/04/18 08:00 98.4 69 18 122/80 (94) 99 07/04/18 08:00 128 07/04/18 07:54 137 127/86 07/04/18 07:53 137 127/86 07/04/18 04:00 95 07/04/18 04:00 98.6 68 18 127/86 (100) 98 07/04/18 00:00 98.2 50 18 140/69 (92) 95 07/04/18 00:00 68 07/03/18 21:44 71 125/69 07/03/18 21:00 Room Air 07/03/18 20:00 98.6 71 18 125/69 (87) 97 07/03/18 20:00 72 07/03/18 16:00 97.2 63 20 152/73 (99) 97 07/03/18 16:00 66 Intake and Output 07/03/18 07/04/18 18:59 06:59 Intake Total 360 ml Output Total 800 ml Balance -440 ml Intake Oral 360 ml Output Urine Total 800 ml # Voids 3 Laboratory Tests 07/04/18 09:22: White Blood Count 5.8, Red Blood Count 4.41L, Hemoglobin 13.2L, Hematocrit 39.2L , Mean Corpuscular Volume 89, Mean Corpuscular Hemoglobin 30.0, Mean Corpuscular Hemoglobin Concent 33.8, Red Cell Distribution Width 14.5, Platelet Count 155, Mean Platelet Volume 6.9, Neutrophils (%) (Auto) , Lymphocytes (%) ( Auto) , Monocytes (%) (Auto) , Eosinophils (%) (Auto) , Basophils (%) (Auto) , Differential Total Cells Counted 100, Neutrophils % (Manual) 56, Lymphocytes % ( Manual) 25, Monocytes % (Manual) 12H, Eosinophils % (Manual) 6H, Basophils % ( Manual) 1, Band Neutrophils 0, Platelet Estimate Adequate, Platelet Morphology Normal, Red Blood Cell Morphology Normal, Anisocytosis , Sodium Level 129L, Potassium Level 3.8, Chloride Level 97L, Carbon Dioxide Level 25, Anion Gap 7, Blood Urea Nitrogen 15, Creatinine 0.9, Estimat Glomerular Filtration Rate > 60 , Glucose Level 135H, Calcium Level 9.2, Phosphorus Level 2.8, Magnesium Level 2.0, Iron Level 45L, Total Iron Binding Capacity 280, Percent Iron Saturation 16 , Unsaturated Iron Binding 235, Ferritin 60, Total Bilirubin 0.6, Aspartate Amino Transf (AST/SGOT) 17, Alanine Aminotransferase (ALT/SGPT) 13, Alkaline Phosphatase 57, C-Reactive Protein, Quantitative 1.5H, Pro-B-Type Natriuretic Peptide 715H, Total Protein 6.7, Albumin 3.1L, Globulin 3.6, Albumin/Globulin Ratio 0.9L Current Medications Medications (Trade) Dose Ordered Sig/Eduardo Route PRN Reason Start Time Stop Time Status Last Admin Dose Admin Acetaminophen (Tylenol) 650 mg Q6H PRN ORAL Mild Pain/Temp > 100.5 06/30/18 17:45 07/30/18 17:44 Apixaban (Eliquis) 5 mg BID ORAL 07/01/18 09:00 07/31/18 08:59 07/04/18 07:54 Diltiazem HCl (Cardizem CD) 180 mg DAILY ORAL 07/01/18 09:00 07/31/18 08:59 07/04/18 07:53 Folic Acid (Folate) 1 mg DAILY ORAL 07/05/18 09:00 07/31/18 09:59 Metoprolol Tartrate (Lopressor) 100 mg Q12HR ORAL 07/04/18 21:00 07/30/18 20:59 Pantoprazole (Protonix) 40 mg EVERY 12 HOURS ORAL 07/01/18 21:00 07/31/18 20:59 07/04/18 07:54 Tamsulosin HCl (Flomax) 0.4 mg BEDTIME ORAL 06/30/18 21:00 07/30/18 20:59 07/03/18 21:43 Jeromy Snow MD Jul 04, 2018 14:01
[2018-07-04 16:00] VITALS: BP 136/77
--- NOTE | 2018-07-04 18:30 | General Progress Note ---
Assessment/Plan Problem List: (1) A-fib ICD Codes: I48.91 - Unspecified atrial fibrillation SNOMED: 55577447 (2) Altered level of consciousness ICD Codes: R40.4 - Transient alteration of awareness SNOMED: 7739665 (3) Dehydration ICD Codes: E86.0 - Dehydration SNOMED: 32531099 (4) Pneumonia ICD Codes: J18.9 - Pneumonia, unspecified organism SNOMED: 621671648 Status: progressing Assessment/Plan arrythmia no acute events abx per dr harmon ams psychiatric history sepsis pna afebrle at baseline Subjective ROS Limited/Unobtainable: Yes Allergies: Coded Allergies: RISPERIDONE (Unverified Allergy, Unknown, 07/04/18) ZIPRASIDONE (Verified Allergy, Unknown, 06/30/18) Uncoded Allergies: RESPERIDONE (Allergy, Unknown, 06/30/18) Objective Last 24 Hour Vital Signs Date Time Temp Pulse Resp B/P (MAP) Pulse Ox O2 Delivery O2 Flow Rate FiO2 07/04/18 16:00 101 07/04/18 16:00 98.0 101 18 136/77 (96) 98 07/04/18 12:00 97.9 100 18 140/79 (99) 97 07/04/18 10:59 82 07/04/18 09:00 Room Air 07/04/18 08:31 120 07/04/18 08:00 98.4 69 18 122/80 (94) 99 07/04/18 08:00 128 07/04/18 07:54 137 127/86 07/04/18 07:53 137 127/86 07/04/18 04:00 95 07/04/18 04:00 98.6 68 18 127/86 (100) 98 07/04/18 00:00 98.2 50 18 140/69 (92) 95 07/04/18 00:00 68 07/03/18 21:44 71 125/69 07/03/18 21:00 Room Air 07/03/18 20:00 98.6 71 18 125/69 (87) 97 07/03/18 20:00 72 Intake and Output 07/03/18 07/04/18 19:00 07:00 Intake Total 360 ml Output Total 800 ml Balance -440 ml Intake Oral 360 ml Output Urine Total 800 ml # Voids 3 Laboratory Tests 07/04/18 09:22: White Blood Count 5.8, Red Blood Count 4.41L, Hemoglobin 13.2L, Hematocrit 39.2L , Mean Corpuscular Volume 89, Mean Corpuscular Hemoglobin 30.0, Mean Corpuscular Hemoglobin Concent 33.8, Red Cell Distribution Width 14.5, Platelet Count 155, Mean Platelet Volume 6.9, Neutrophils (%) (Auto) , Lymphocytes (%) ( Auto) , Monocytes (%) (Auto) , Eosinophils (%) (Auto) , Basophils (%) (Auto) , Differential Total Cells Counted 100, Neutrophils % (Manual) 56, Lymphocytes % ( Manual) 25, Monocytes % (Manual) 12H, Eosinophils % (Manual) 6H, Basophils % ( Manual) 1, Band Neutrophils 0, Platelet Estimate Adequate, Platelet Morphology Normal, Red Blood Cell Morphology Normal, Anisocytosis , Sodium Level 129L, Potassium Level 3.8, Chloride Level 97L, Carbon Dioxide Level 25, Anion Gap 7, Blood Urea Nitrogen 15, Creatinine 0.9, Estimat Glomerular Filtration Rate > 60 , Glucose Level 135H, Osmolality 272L, Uric Acid 4.9, Calcium Level 9.2, Phosphorus Level 2.8, Magnesium Level 2.0, Iron Level 45L, Total Iron Binding Capacity 280, Percent Iron Saturation 16, Unsaturated Iron Binding 235, Ferritin 60, Total Bilirubin 0.6, Aspartate Amino Transf (AST/SGOT) 17, Alanine Aminotransferase (ALT/SGPT) 13, Alkaline Phosphatase 57, C-Reactive Protein, Quantitative 1.5H, Pro-B-Type Natriuretic Peptide 715H, Total Protein 6.7, Albumin 3.1L, Globulin 3.6, Albumin/Globulin Ratio 0.9L 07/04/18 14:30: Urine Osmolality 361L, Urine Random Sodium 82 Height (Feet): 5 Height (Inches): 8.00 Weight (Pounds): 137 Neck: supple Cardiovascular: normal rate Respiratory/Chest: normal breath sounds Pao Pike MD Jul 04, 2018 18:30
--- NOTE | 2018-07-04 19:30 | NUR ---
HAND-OFF: Report given to Jagdish JARAMILLO. Pt is resting in bed in stable condition. Endorsed plan of care.
[2018-07-04 20:00] VITALS: BP 142/87
[2018-07-04] MEDS: Tamsulosin 0.4mg cap ORAL SCH (20:27)
--- NOTE | 2018-07-04 20:30 | NUR ---
NURSE NOTES: received pt, pt AAOx3, resting on bed. pt with no s/s of acute distress, pt denies any pain or discomfort, fall precaution in place. will continue to monitor
--- NOTE | 2018-07-04 22:42 | NUR ---
NURSE NOTES: Called Dr. May's exchange regarding patient's heart rate going up to the 130s. Awaiting callback.
--- NOTE | 2018-07-04 23:27 | NUR ---
NURSE NOTES: Called Dr. May's exchange again regarding patient's heart rate going up to the 130s. Awaiting callback.
[2018-07-05] VITALS: BP 129/84
--- NOTE | 2018-07-05 01:22 | NUR ---
NURSE NOTES: pt in bed sleeping, no s/s of pain and acute distress. will continue to monitor.
[2018-07-05 04:00] VITALS: BP 134/87
--- NOTE | 2018-07-05 07:14 | NUR ---
HAND-OFF: Report given to Govind Rmairez. pt in bed resting comfortably stable condition.all needs met during my shift.
--- NOTE | 2018-07-05 07:30 | NUR ---
NURSE NOTES: Received report from Noa JARAMILLO. Pt is awake, alert, oriented x2, on room air with no respiratory distress. Denies pain. Skin is intact. IV access is on left FA #[id number], saline lock, patent/intact. Heart rhythm today is SR. Pt is on bedrest. Urinal at bedside. Call light is placed within easy reach, bed in lowest position, three side rails up, brakes engaged, alarm on. Pt refused blooddraw this morning x2. Will reattempt later this morning. Addendum: 07/05/18 at 1852 by FRANCES MEIER RN Pt agreed to have labs drawn at 3rd request.
[2018-07-05 08:00] VITALS: BP 149/76
[2018-07-05] MEDS: dilTIAZem HCl CD 180mg cap ORAL SCH (09:12)
[2018-07-05] MEDS: Eliquis 2.5mg tablet ORAL SCH ×2 (09:12→17:47)
[2018-07-05 12:00] VITALS: BP 149/80
--- NOTE | 2018-07-05 12:43 | Nephrology Progress Note ---
Assessment/Plan Problem List: (1) Dehydration (2) A-fib (3) Anemia (4) Hyponatremia Assessment Renal failure, Dehydration Encephalopathy Psych history HypoThyroidism Mild Anemia Plan Radha U os S Os Uric acid cardiac diet IV fluid adjust BP meds Adjusy psych and mind altering meds per psychiatrist watch BP and monitor renal parameters Subjective ROS Limited/Unobtainable: No Constitutional: Reports: malaise Objective Objective Last 24 Hour Vital Signs Date Time Temp Pulse Resp B/P (MAP) Pulse Ox O2 Delivery O2 Flow Rate FiO2 07/05/18 09:13 80 149/76 07/05/18 09:12 80 149/76 07/05/18 09:00 Room Air 07/05/18 08:00 89 07/05/18 08:00 97.5 80 18 149/76 (100) 94 07/05/18 04:00 98.0 96 18 134/87 (103) 96 07/05/18 04:00 73 07/05/18 00:00 98.2 115 20 129/84 (99) 98 07/05/18 00:00 111 07/04/18 21:00 Room Air 07/04/18 20:28 99 142/87 07/04/18 20:00 97.6 103 18 142/87 (105) 99 07/04/18 20:00 102 07/04/18 16:00 101 07/04/18 16:00 98.0 101 18 136/77 (96) 98 Intake and Output 07/04/18 07/05/18 19:00 07:00 Intake Total 1460 ml 240 ml Output Total 550 ml Balance 1460 ml -310 ml Intake Oral 1460 ml 240 ml Output Urine Total 550 ml # Voids 11 Laboratory Tests 07/04/18 14:30: Urine Osmolality 361L, Urine Random Sodium 82 07/05/18 11:45: Sodium Level [Pending], Potassium Level [Pending], Chloride Level [Pending], Carbon Dioxide Level [Pending], Blood Urea Nitrogen [Pending], Creatinine [ Pending], Estimat Glomerular Filtration Rate [Pending], Glucose Level [Pending] , Uric Acid [Pending], Calcium Level [Pending], Phosphorus Level [Pending], Magnesium Level [Pending], Total Bilirubin [Pending], Aspartate Amino Transf ( AST/SGOT) [Pending], Alanine Aminotransferase (ALT/SGPT) [Pending], Alkaline Phosphatase [Pending], Total Protein [Pending], Albumin [Pending], Globulin [ Pending], Thyroid Stimulating Hormone (TSH) [Pending] Height (Feet): 5 Height (Inches): 8.00 Weight (Pounds): 137 General Appearance: no apparent distress Objective no change Lisandro Guzman MD Jul 05, 2018 12:43
[2018-07-05 13:08] LABS: ALANINE AMINOTRANSFERASE 15 U/L (12-78); ALBUMIN 3.1 G/DL (3.4-5.0); ALBUMIN/GLOBULIN RATIO 0.9 (1.0-2.7); ALKALINE PHOSPHATASE 53 U/L (46-116); ANION GAP 10 mmol/L (5-15); ASPARTATE AMINO TRANSFERASE 21 U/L (15-37); BILIRUBIN,TOTAL 0.4 MG/DL (0.2-1.0); BLOOD UREA NITROGEN 26 mg/dL (7-18); CARBON DIOXIDE 25 MMOL/L (21-32); CHLORIDE 94 MMOL/L (98-107); PHOSPHORUS 3.4 MG/DL (2.5-4.9); POTASSIUM 4.3 MMOL/L (3.5-5.1); SODIUM 129 MMOL/L (136-145)
--- NOTE | 2018-07-05 13:09 | General Progress Note ---
Assessment/Plan Problem List: (1) A-fib ICD Codes: I48.91 - Unspecified atrial fibrillation SNOMED: 42881151 (2) Altered level of consciousness ICD Codes: R40.4 - Transient alteration of awareness SNOMED: 1821662 (3) Dehydration ICD Codes: E86.0 - Dehydration SNOMED: 02730438 (4) Pneumonia ICD Codes: J18.9 - Pneumonia, unspecified organism SNOMED: 922384025 Status: progressing Assessment/Plan arrythmia sepsis pna improved dehydration improved Subjective ROS Limited/Unobtainable: Yes Allergies: Coded Allergies: RISPERIDONE (Unverified Allergy, Unknown, 07/04/18) ZIPRASIDONE (Verified Allergy, Unknown, 06/30/18) Uncoded Allergies: RESPERIDONE (Allergy, Unknown, 06/30/18) Objective Last 24 Hour Vital Signs Date Time Temp Pulse Resp B/P (MAP) Pulse Ox O2 Delivery O2 Flow Rate FiO2 07/05/18 09:13 80 149/76 07/05/18 09:12 80 149/76 07/05/18 09:00 Room Air 07/05/18 08:00 89 07/05/18 08:00 97.5 80 18 149/76 (100) 94 07/05/18 04:00 98.0 96 18 134/87 (103) 96 07/05/18 04:00 73 07/05/18 00:00 98.2 115 20 129/84 (99) 98 07/05/18 00:00 111 07/04/18 21:00 Room Air 07/04/18 20:28 99 142/87 07/04/18 20:00 97.6 103 18 142/87 (105) 99 07/04/18 20:00 102 07/04/18 16:00 101 07/04/18 16:00 98.0 101 18 136/77 (96) 98 Intake and Output 07/04/18 07/05/18 19:00 07:00 Intake Total 1460 ml 240 ml Output Total 550 ml Balance 1460 ml -310 ml Intake Oral 1460 ml 240 ml Output Urine Total 550 ml # Voids 11 Laboratory Tests 07/04/18 14:30: Urine Osmolality 361L, Urine Random Sodium 82 07/05/18 11:45: Sodium Level [Pending], Potassium Level [Pending], Chloride Level [Pending], Carbon Dioxide Level [Pending], Blood Urea Nitrogen [Pending], Creatinine [ Pending], Estimat Glomerular Filtration Rate [Pending], Glucose Level [Pending] , Uric Acid [Pending], Calcium Level [Pending], Phosphorus Level [Pending], Magnesium Level [Pending], Total Bilirubin [Pending], Aspartate Amino Transf ( AST/SGOT) [Pending], Alanine Aminotransferase (ALT/SGPT) [Pending], Alkaline Phosphatase [Pending], Total Protein [Pending], Albumin [Pending], Globulin [ Pending], Thyroid Stimulating Hormone (TSH) [Pending] Height (Feet): 5 Height (Inches): 8.00 Weight (Pounds): 137 Neck: supple Cardiovascular: normal rate Respiratory/Chest: lungs clear Pao Pike MD Jul 05, 2018 13:09
--- NOTE | 2018-07-05 14:53 | Pulmonology Progress Note ---
Assessment/Plan Assessment/Plan Pulmonary Progress Note Assessment/Plan Problems: (1) Fever (2) A-fib (3) Dehydration (4) Altered level of consciousness Assessment/Plan ASSESSMENT: The patient is a 63-year-old male with schizophrenia, AFib, hypothyroidism, and hypertension, presenting with fevers of unknown origin and altered mental status. He is stable here, afebrile, and does not appear to be infected. The atelectasis on the chest x-ray is likely just atelectasis and not an infiltrate because it is at the base of the chest which is visible in chest cuts on the CT abdomen and pelvis. Stable over night, no new complaints. PROBLEM LIST: 1. Atelectasis. 2. No evidence of respiratory infection. 3. Reported fever of unknown origin, afebrile here in the hospital. 4. Paroxysmal AFib. 5. Hypertension. 6. Hypothyroidism. 7. Lactic acidosis, resolved. 8. MACARENA, resolved. 9. Dehydration. TREATMENT PLAN: 1. Optimize pulmonary hygiene/mobilize as tolerated. 2. IV fluid hydration. 3. Observe off antibiotics. 4. Follow up cultures. 5. Aspiration precautions. 6. Eliquis for DVT prophylaxis. 7. Follow up pension consultant's recommendations Subjective Allergies: Coded Allergies: ZIPRASIDONE (Verified Allergy, Unknown, 06/30/18) Uncoded Allergies: RESPERIDONE (Allergy, Unknown, 06/30/18) Subjective AFVSS in NSR No cough, no SOB, no CP, no FC Objective Vital Signs Noted General Appearance: WD/WN, no acute distress HEENT: normocephalic, atraumatic, anicteric, mucous membranes moist Respiratory/Chest: chest wall non-tender, lungs clear, normal breath sounds, no respiratory distress, no accessory muscle use Cardiovascular: normal peripheral pulses, normal rate, regular rhythm Abdomen: normal bowel sounds, soft, non tender, no organomegaly, non distended , no mass Extremities: no cyanosis, no clubbing, no edema Microbiology Date/Time Source Procedure Growth Status 06/30/18 11:35 Blood Blood Culture - Preliminary NO GROWTH AFTER 48 HOURS Resulted 06/30/18 11:20 Blood Blood Culture - Preliminary NO GROWTH AFTER 48 HOURS Resulted 06/30/18 14:20 Nasal Nares MRSA Culture - Final NO METHICILLIN RESISTANT STAPH AUREUS... Complete 06/30/18 12:50 Nasal Nares Influenza Types A,B Antigen (CHRIS) - Final Complete 06/30/18 14:20 Rectum VRE Culture - Final NO VANCOMYCIN RESISTANT ENTEROCOCCUS ... Complete 06/30/18 14:20 Rectum - Final NO CARBAPENEM-RESISTANT ENTEROBACTERI... Complete Laboratory Tests 07/02/18 08:50: Pro-B-Type Natriuretic Peptide 2607H, Triglycerides Level 84, Cholesterol Level 141, LDL Cholesterol 67, HDL Cholesterol 57, Cholesterol/HDL Ratio 2.5L Current Medications Medications (Trade) Dose Ordered Sig/Eduardo Route PRN Reason Start Time Stop Time Status Last Admin Dose Admin Acetaminophen (Tylenol) 650 mg Q6H PRN ORAL Mild Pain/Temp > 100.5 06/30/18 17:45 07/30/18 17:44 Apixaban (Eliquis) 5 mg BID ORAL 07/01/18 09:00 07/31/18 08:59 07/02/18 17:56 Dextrose/Sodium Chloride 1,000 ml @ 50 mls/hr Q20H IV 07/01/18 15:00 07/31/18 14:59 07/02/18 10:48 Diltiazem HCl (Cardizem CD) 180 mg DAILY ORAL 07/01/18 09:00 07/31/18 08:59 07/02/18 09:07 Folic Acid (Folate) 3 mg DAILY ORAL 07/01/18 10:00 07/31/18 09:59 07/02/18 09:05 Metoprolol Tartrate (Lopressor) 50 mg Q12HR ORAL 06/30/18 21:00 07/30/18 20:59 07/02/18 20:40 Pantoprazole (Protonix) 40 mg EVERY 12 HOURS ORAL 07/01/18 21:00 07/31/18 20:59 07/02/18 20:40 Tamsulosin HCl (Flomax) 0.4 mg BEDTIME ORAL 06/30/18 21:00 07/30/18 20:59 07/02/18 20:40 Subjective ROS Limited/Unobtainable: No Allergies: Coded Allergies: RISPERIDONE (Unverified Allergy, Unknown, 07/04/18) ZIPRASIDONE (Verified Allergy, Unknown, 06/30/18) Uncoded Allergies: RESPERIDONE (Allergy, Unknown, 06/30/18) Objective Last 24 Hour Vital Signs Date Time Temp Pulse Resp B/P (MAP) Pulse Ox O2 Delivery O2 Flow Rate FiO2 07/05/18 12:55 95 07/05/18 12:00 98.1 60 19 149/80 (103) 96 07/05/18 12:00 69 07/05/18 09:13 80 149/76 07/05/18 09:12 80 149/76 07/05/18 09:00 Room Air 07/05/18 08:00 89 07/05/18 08:00 97.5 80 18 149/76 (100) 94 07/05/18 04:00 98.0 96 18 134/87 (103) 96 07/05/18 04:00 73 07/05/18 00:00 98.2 115 20 129/84 (99) 98 07/05/18 00:00 111 07/04/18 21:00 Room Air 07/04/18 20:28 99 142/87 07/04/18 20:00 97.6 103 18 142/87 (105) 99 07/04/18 20:00 102 07/04/18 16:00 101 07/04/18 16:00 98.0 101 18 136/77 (96) 98 Intake and Output 07/04/18 07/05/18 18:59 06:59 Intake Total 1460 ml 240 ml Output Total 550 ml Balance 1460 ml -310 ml Intake Oral 1460 ml 240 ml Output Urine Total 550 ml # Voids 11 Laboratory Tests 07/05/18 11:45: Sodium Level 129L, Potassium Level 4.3, Chloride Level 94L, Carbon Dioxide Level 25, Anion Gap 10, Blood Urea Nitrogen 26H, Creatinine 1.0, Estimat Glomerular Filtration Rate > 60, Glucose Level 92, Uric Acid 6.0, Calcium Level 9.0, Phosphorus Level 3.4, Magnesium Level 2.1, Total Bilirubin 0.4, Aspartate Amino Transf (AST/SGOT) 21, Alanine Aminotransferase (ALT/SGPT) 15, Alkaline Phosphatase 53, Total Protein 6.6, Albumin 3.1L, Globulin 3.5, Albumin/Globulin Ratio 0.9L, Thyroid Stimulating Hormone (TSH) 4.088H Current Medications Medications (Trade) Dose Ordered Sig/Eduardo Route PRN Reason Start Time Stop Time Status Last Admin Dose Admin Acetaminophen (Tylenol) 650 mg Q6H PRN ORAL Mild Pain/Temp > 100.5 06/30/18 17:45 07/30/18 17:44 Apixaban (Eliquis) 5 mg BID ORAL 07/01/18 09:00 07/31/18 08:59 07/05/18 09:12 Diltiazem HCl (Cardizem CD) 180 mg DAILY ORAL 07/01/18 09:00 07/31/18 08:59 07/05/18 09:12 Folic Acid (Folate) 1 mg DAILY ORAL 07/05/18 09:00 07/31/18 09:59 07/05/18 09:12 Metoprolol Tartrate (Lopressor) 100 mg Q12HR ORAL 07/04/18 21:00 07/30/18 20:59 07/05/18 09:13 Pantoprazole (Protonix) 40 mg EVERY 12 HOURS ORAL 07/01/18 21:00 07/31/18 20:59 07/05/18 09:12 Tamsulosin HCl (Flomax) 0.4 mg BEDTIME ORAL 06/30/18 21:00 07/30/18 20:59 07/04/18 20:27 Jeromy Snow MD Jul 05, 2018 14:53
[2018-07-05] MEDS ORDERED: D5NS 1000ml IV ONE (15:52)
[2018-07-05 16:00] VITALS: BP 134/69
--- NOTE | 2018-07-05 16:22 | Cardiology Report ---
APPROVED REPORT EKG Measurement Heart [id number] Atrial fibrillation with rapid ventricular response Abnormal ECG
[2018-07-05] MEDS ORDERED: NaCl 3% 500ml 250 ML IV ONE (18:00)
--- NOTE | 2018-07-05 18:00 | Consultation ---
DATE OF CONSULTATION: 07/05/2018 INFECTIOUS DISEASE CONSULTATION: CONSULTING PHYSICIAN: Ayaz Price M.D. PRIMARY ATTENDING: Pao Pike M.D. REASON FOR CONSULT: Fever, COPD. HISTORY OF PRESENT ILLNESS: This is a 63-year-old white male admitted on 06/30/2018 with altered mental status, weakness, had vomiting, had fever in ER with a temperature of 103.4, was found to have atrial fibrillation with rapid ventricular rate that converted to sinus and then again became AFib. PAST MEDICAL HISTORY: History of hypothyroidism, BPH, psychosis, schizophrenia. ALLERGIES: Allergic to risperidone MEDICATIONS: Getting folic acid, metoprolol, Protonix, diltiazem, apixaban, Flomax, Tylenol. SOCIAL HISTORY: Single. Smoking 1 pack cigarettes a day. No drinking. No drug abuse. REVIEW OF SYSTEMS: No fever. No chills at the present time. Has chronic coughing that is productive. No chest pain. No nausea. No vomiting. No diarrhea. No problem passing urine. PHYSICAL EXAMINATION: VITAL SIGNS: Temperature 97.5, pulse 80, blood pressure 149/76. GENERAL APPEARANCE: No acute distress. HEAD AND NECK: Has decayed teeth. Poor dentition. HEART: Irregular. LUNGS: Clear. ABDOMEN: Soft. EXTREMITIES: Has no edema. NEUROLOGIC: Awake, alert, has had tremor. LABORATORY AND DIAGNOSTIC DATA: WBC 5.8, hemoglobin 13.2, hematocrit 39.2, platelets 155. Sodium 129, potassium 3.8, chloride 97, bicarbonate 25, BUN 15, creatinine 0.9, glucose 130. BNP was elevated, the latest one is 750. Blood culture negative. MRSA screen negative. Influenza A and B negative. VRE and CRE tests are negative. Head CT showed age-related volume loss. CT scan of the abdomen and pelvis showed atelectasis, possible osteoporosis, possible pulmonary parenchymal hyperinflation. Echocardiogram showed ejection fraction of 60 to 65%. IMPRESSION: Fever that is resolved. Has COPD likely secondary to chronic smoking. Has acute renal failure at the time of admission that resolved. Has atrial fibrillation, hypothyroidism, atelectasis, BPH, hyponatremia. RECOMMENDATION: Now, the patient's symptoms improved without the use of antibiotic. We will observe off antibiotics. We will consider smoking cessation. At the end of my exam, I thank Dr. Pike for involving me in the care of this patient. Ayaz Price M.D. DR: JOSEP JOB#: [id number] CC: ALEXX
--- NOTE | 2018-07-05 18:46 | General Progress Note ---
Assessment/Plan Assessment/Plan ASSESSMENT AND PLAN: # Anemia of chronic disease due to underlying chronic medical issues, multifactorial --> Anemia workup has been reviewed --> No evidence of hemolysis is noted, peripheral smear has been reviewed. --> Hgb goal >7. Transfuse prn. --> Epogen or iron at this time is not particularly indicated --> Medications have been reviewed # Thrombocytopenia - potential causes multifactorial, evaluate liver and viral etiologies to begin, also could be related to underlying medications patient has received. --> Hep panel and HIV ordered --> ct a/p shows no e/o disease/hsm/cirrhosis --> Peripheral smear ordered to evaluate for blasts /schistocytes --> abx and other meds have been reviewed --> ok for ppx if plt >50k w/ either heparin or lovenox --> Transfuse if Plt < 20k and fever, or if Plt < 10k without fever # Atelectasis, Optimize pulmonary hygiene/mobilize as tolerated. # Reported fever of unknown origin, afebrile here in the hospital. # Paroxysmal AFib, cardiology recs # Hypertension. # Hypothyroidism. # Lactic acidosis, resolved. # MACARENA, resolved. The timing of this note does not necessarily reflect the time of the patient was seen. Greatly appreciate consultation! Subjective Constitutional: Denies: no symptoms, chills, diaphoresis, fever, malaise, weakness, other HEENT: Denies: no symptoms, eye pain, blurred vision, tearing, double vision, ear pain, ear discharge, nose pain, nose congestion, throat pain, throat swelling, mouth pain, mouth swelling, other Cardiovascular: Denies: no symptoms, chest pain, edema, irregular heart rate, lightheadedness, palpitations, syncope, other Respiratory: Denies: no symptoms, cough, orthopnea, shortness of breath, SOB with excertion, SOB at rest, sputum, stridor, wheezing, other Gastrointestinal/Abdominal: Denies: no symptoms, abdomen distended, abdominal pain, black stools, tarry stools, blood in stool, constipated, diarrhea, difficulty swallowing, nausea, poor appetite, poor fluid intake, rectal bleeding , vomiting, other Genitourinary: Denies: no symptoms, burning, discharge, frequency, flank pain, hematuria, incontinence, pain, urgency, other Neurologic/Psychiatric: Denies: no symptoms, anxiety, depressed, emotional problems, headache, numbness, paresthesia, pre-existing deficit, seizure, tingling, tremors, weakness, other Endocrine: Denies: no symptoms, excessive sweating, flushing, intolerance to cold, intolerance to heat, increased hunger, increased thirst, increased urine, unexplained weight gain, unexplained weight loss, other Hematologic/Lymphatic: Denies: no symptoms, anemia, easy bleeding, easy bruising, other Allergies: Coded Allergies: RISPERIDONE (Unverified Allergy, Unknown, 07/04/18) ZIPRASIDONE (Verified Allergy, Unknown, 06/30/18) Uncoded Allergies: RESPERIDONE (Allergy, Unknown, 06/30/18) Subjective 07/05: no events overnight, no fevers or chills, off abx Objective Last 24 Hour Vital Signs Date Time Temp Pulse Resp B/P (MAP) Pulse Ox O2 Delivery O2 Flow Rate FiO2 07/05/18 16:00 98.6 77 18 134/69 (90) 98 07/05/18 16:00 66 07/05/18 12:55 95 07/05/18 12:00 98.1 60 19 149/80 (103) 96 07/05/18 12:00 69 07/05/18 09:13 80 149/76 07/05/18 09:12 80 149/76 07/05/18 09:00 Room Air 07/05/18 08:00 89 07/05/18 08:00 97.5 80 18 149/76 (100) 94 07/05/18 04:00 98.0 96 18 134/87 (103) 96 07/05/18 04:00 73 07/05/18 00:00 98.2 115 20 129/84 (99) 98 07/05/18 00:00 111 07/04/18 21:00 Room Air 07/04/18 20:28 99 142/87 07/04/18 20:00 97.6 103 18 142/87 (105) 99 07/04/18 20:00 102 Intake and Output 07/04/18 07/05/18 18:59 06:59 Intake Total 1460 ml 240 ml Output Total 550 ml Balance 1460 ml -310 ml Intake Oral 1460 ml 240 ml Output Urine Total 550 ml # Voids 11 Laboratory Tests 2/17/19 11:45: Sodium Level 129L, Potassium Level 4.3, Chloride Level 94L, Carbon Dioxide Level 25, Anion Gap 10, Blood Urea Nitrogen 26H, Creatinine 1.0, Estimat Glomerular Filtration Rate > 60, Glucose Level 92, Uric Acid 6.0, Calcium Level 9.0, Phosphorus Level 3.4, Magnesium Level 2.1, Total Bilirubin 0.4, Aspartate Amino Transf (AST/SGOT) 21, Alanine Aminotransferase (ALT/SGPT) 15, Alkaline Phosphatase 53, Total Protein 6.6, Albumin 3.1L, Globulin 3.5, Albumin/Globulin Ratio 0.9L, Thyroid Stimulating Hormone (TSH) 4.088H Height (Feet): 5 Height (Inches): 8.00 Weight (Pounds): 137 General Appearance: no apparent distress EENT: TMs normal Neck: normal alignment Cardiovascular: regular rhythm Respiratory/Chest: normal breath sounds Abdomen: no organomegaly Extremities: non-tender Edema: 1+ Leg (L), 1+ Leg (R) Edema: mild edema Neurologic: oriented x 3 Skin: warm/dry Objective PHYSICAL EXAMINATION: VITAL SIGNS: Temperature 98.1, pulse is 78, and blood pressure 139/72. HEENT: PERRLA. NECK: Supple. No lymphadenopathy. CHEST: Clear to auscultation. CARDIOVASCULAR: Regular rate and rhythm. No murmurs or extra sounds. GASTROINTESTINAL: Soft, nontender, and nondistended. No organomegaly. EXTREMITIES: No edema. Moves all four extremities. NEUROLOGIC: Sensory intact to light touch. Reflexes are equal on both sides Bennie Goss MD Jul 05, 2018 18:46
--- NOTE | 2018-07-05 18:50 | NUR ---
NURSE NOTES: NaCl 3% being infused at 30mL/hour per Dr Guzman's order for Na level of 129. Pt is tolerating well, resting in bed, watching TV.
--- NOTE | 2018-07-05 19:24 | NUR ---
HAND-OFF: Report given to Noa JARAMILLO. Pt is resting in bed in stable condition. Endorsed plan of care.
[2018-07-05 20:00] VITALS: BP 146/87
[2018-07-05] MEDS: Tamsulosin 0.4mg cap ORAL SCH (20:07)
--- NOTE | 2018-07-05 20:20 | NUR ---
received endorsement form Govind Ramirez. pt in bed watching tv. no sob or acute distress noted. pt denies pain or disconfort at this moment. safety precautions on place. will continue to monitor pt. Addendum: 07/06/18 at 0030 by Radha White RN discomfort
[2018-07-06] VITALS (7 sets, daily range): BP systolic 129–165; BP diastolic 69–98
--- NOTE | 2018-07-06 00:30 | NUR ---
NURSE NOTES: pt sleeping with no s/s of acute distress. will continue to monitor.
--- NOTE | 2018-07-06 04:18 | NUR ---
NURSE NOTES: pt in bed sleeping no s/s of acute distress. will continue to monitor.
--- NOTE | 2018-07-06 07:26 | NUR ---
HAND-OFF: Report given to Jeannette JARAMILLO. pt eating breaksfast. no acute distress during my shift. all needs met during my shift.
--- NOTE | 2018-07-06 07:31 | NUR ---
NURSE NOTES: Received report from Noa. pt sitting in bed resting Aox3. L FA 20g. Not in acute distress on monitoring manager SR. Bed locked and in lowest position, call light within reach will continue plan of care
[2018-07-06] MEDS: Eliquis 2.5mg tablet ORAL SCH ×2 (08:26→17:18)
[2018-07-06] MEDS: dilTIAZem HCl CD 180mg cap ORAL SCH (09:00)
--- NOTE | 2018-07-06 10:38 | Infectious Diseases Prog Note ---
Assessment/Plan Assessment/Plan antibiotics : none A 1. fever resolved 2. BPH 3. hypothyroidism 4. COPD 5. renal failure resolved P 1. continue off antibiotics Subjective Constitutional: Denies: fever, chills Respiratory: Denies: shortness of breath, dry cough Gastrointestinal/Abdominal: Denies: nausea, vomiting, diarrhea Musculoskeletal: Denies: pain Allergies: Coded Allergies: RISPERIDONE (Unverified Allergy, Unknown, 07/04/18) ZIPRASIDONE (Verified Allergy, Unknown, 06/30/18) Uncoded Allergies: RESPERIDONE (Allergy, Unknown, 06/30/18) Objective Vital Signs Last 24 Hour Vital Signs Date Time Temp Pulse Resp B/P (MAP) Pulse Ox O2 Delivery O2 Flow Rate FiO2 07/06/18 09:00 57 07/06/18 09:00 57 156/72 07/06/18 08:54 Room Air 07/06/18 08:00 97.5 65 16 156/72 (100) 93 07/06/18 08:00 68 07/06/18 04:00 54 07/06/18 04:00 97.8 56 20 129/79 (96) 95 07/06/18 00:00 57 07/06/18 00:00 97.7 55 20 137/69 (91) 98 07/05/18 21:00 Room Air 07/05/18 20:08 94 146/87 07/05/18 20:00 97.7 63 20 146/87 (106) 94 07/05/18 20:00 62 07/05/18 16:00 98.6 77 18 134/69 (90) 98 07/05/18 16:00 66 07/05/18 12:55 95 07/05/18 12:00 98.1 60 19 149/80 (103) 96 07/05/18 12:00 69 Height (Feet): 5 Height (Inches): 8.00 Weight (Pounds): 137 Respiratory/Chest: lungs clear Cardiovascular: normal rate, regular rhythm, no gallop/murmur Abdomen: soft, non tender Extremities: no edema Laboratory Tests Test 07/05/18 11:45 07/05/18 19:33 Sodium Level 129 MMOL/L (136-145) L Potassium Level 4.3 MMOL/L (3.5-5.1) Chloride Level 94 MMOL/L (98-107) L Carbon Dioxide Level 25 MMOL/L (21-32) Anion Gap 10 mmol/L (5-15) Blood Urea Nitrogen 26 mg/dL (7-18) H Creatinine 1.0 MG/DL (0.55-1.30) Estimat Glomerular Filtration Rate > 60 mL/min (>60) Glucose Level 92 MG/DL (74-106) Uric Acid 6.0 MG/DL (2.6-7.2) Calcium Level 9.0 MG/DL (8.5-10.1) Phosphorus Level 3.4 MG/DL (2.5-4.9) Magnesium Level 2.1 MG/DL (1.8-2.4) Total Bilirubin 0.4 MG/DL (0.2-1.0) Aspartate Amino Transf (AST/SGOT) 21 U/L (15-37) Alanine Aminotransferase (ALT/SGPT) 15 U/L (12-78) Alkaline Phosphatase 53 U/L (46-116) Total Protein 6.6 G/DL (6.4-8.2) Albumin 3.1 G/DL (3.4-5.0) L Globulin 3.5 g/dL Albumin/Globulin Ratio 0.9 (1.0-2.7) L Thyroid Stimulating Hormone (TSH) 4.088 uiU/mL (0.358-3.740) Hepatitis A IgM Antibody Pending Hepatitis B Surface Antigen Pending Hepatitis B Core IgM Antibody Pending Hepatitis C Antibody Pending HIV (1&2) Antibody Rapid Negative (NEGATIVE) Current Medications Medications (Trade) Dose Ordered Sig/Eduardo Route PRN Reason Start Time Stop Time Status Last Admin Dose Admin Acetaminophen (Tylenol) 650 mg Q6H PRN ORAL Mild Pain/Temp > 100.5 06/30/18 17:45 07/30/18 17:44 Apixaban (Eliquis) 5 mg BID ORAL 07/01/18 09:00 07/31/18 08:59 07/06/18 08:26 Diltiazem HCl (Cardizem CD) 180 mg DAILY ORAL 07/01/18 09:00 07/31/18 08:59 07/05/18 09:12 Folic Acid (Folate) 1 mg DAILY ORAL 07/05/18 09:00 07/31/18 09:59 07/06/18 08:27 Metoprolol Tartrate (Lopressor) 100 mg Q12HR ORAL 07/04/18 21:00 07/30/18 20:59 07/05/18 20:08 Pantoprazole (Protonix) 40 mg EVERY 12 HOURS ORAL 07/01/18 21:00 07/31/18 20:59 07/06/18 08:26 Tamsulosin HCl (Flomax) 0.4 mg BEDTIME ORAL 06/30/18 21:00 07/30/18 20:59 07/05/18 20:07 Aleksandar Kaye MD Jul 06, 2018 10:38
--- NOTE | 2018-07-06 12:31 | Nephrology Progress Note ---
Assessment/Plan Problem List: (1) Dehydration (2) A-fib (3) Anemia (4) Hyponatremia Assessment Renal failure, Dehydration Encephalopathy Psych history HypoThyroidism Mild Anemia Plan Radha U os S Os Uric acid Na 129 cardiac diet IV fluid adjust BP meds Adjusy psych and mind altering meds per psychiatrist watch BP and monitor renal parameters Subjective ROS Limited/Unobtainable: No Constitutional: Reports: malaise Objective Objective Last 24 Hour Vital Signs Date Time Temp Pulse Resp B/P (MAP) Pulse Ox O2 Delivery O2 Flow Rate FiO2 07/06/18 09:00 57 07/06/18 09:00 57 156/72 07/06/18 08:54 Room Air 07/06/18 08:00 97.5 65 16 156/72 (100) 93 07/06/18 08:00 68 07/06/18 04:00 54 07/06/18 04:00 97.8 56 20 129/79 (96) 95 07/06/18 00:00 57 07/06/18 00:00 97.7 55 20 137/69 (91) 98 07/05/18 21:00 Room Air 07/05/18 20:08 94 146/87 07/05/18 20:00 97.7 63 20 146/87 (106) 94 07/05/18 20:00 62 07/05/18 16:00 98.6 77 18 134/69 (90) 98 07/05/18 16:00 66 07/05/18 12:55 95 Intake and Output 07/05/18 07/06/18 19:00 07:00 Intake Total 425 ml 480 ml Output Total 700 ml Balance 425 ml -220 ml Intake Oral 240 ml IV Total 25 ml 240 ml Other 400 ml Output Urine Total 700 ml # Bowel Movements 1 Laboratory Tests 07/05/18 19:33: Hepatitis A IgM Antibody [Pending], Hepatitis B Surface Antigen [Pending], Hepatitis B Core IgM Antibody [Pending], Hepatitis C Antibody [Pending], HIV (1& 2) Antibody Rapid Negative Height (Feet): 5 Height (Inches): 8.00 Weight (Pounds): 137 General Appearance: no apparent distress Objective no change Lisandro Guzman MD Jul 06, 2018 12:31
--- NOTE | 2018-07-06 14:10 | Cardiac Electrophysiology PN ---
Assessment/Plan Assessment/Plan 1. Atrial fibrillation with rapid ventricular response. In and out of atrial fib Continue Cardizem 180 mg daily, Eliquis 5 mg bid and metoprolol 100 mg b.i.d. 2. Hypertension. Continue Cardizem CD 180 mg daily and metoprolol 100 mg b.i.d. 3. Fever of 103. Off abx by ID. 4. Benign prostatic hypertrophy on Flomax. DW RN Subjective Subjective No CP or SOB. In atrial fib with better rate control Objective Last 24 Hour Vital Signs Date Time Temp Pulse Resp B/P (MAP) Pulse Ox O2 Delivery O2 Flow Rate FiO2 07/06/18 12:00 97.3 54 16 154/77 (102) 97 07/06/18 09:00 57 07/06/18 09:00 57 156/72 07/06/18 08:54 Room Air 07/06/18 08:00 97.5 65 16 156/72 (100) 93 07/06/18 08:00 68 07/06/18 04:00 54 07/06/18 04:00 97.8 56 20 129/79 (96) 95 07/06/18 00:00 57 07/06/18 00:00 97.7 55 20 137/69 (91) 98 07/05/18 21:00 Room Air 07/05/18 20:08 94 146/87 07/05/18 20:00 97.7 63 20 146/87 (106) 94 07/05/18 20:00 62 07/05/18 16:00 98.6 77 18 134/69 (90) 98 07/05/18 16:00 66 Intake and Output 07/05/18 07/06/18 19:00 07:00 Intake Total 425 ml 480 ml Output Total 700 ml Balance 425 ml -220 ml Intake Oral 240 ml IV Total 25 ml 240 ml Other 400 ml Output Urine Total 700 ml # Bowel Movements 1 Laboratory Tests Test 07/05/18 19:33 Hepatitis A IgM Antibody Pending Hepatitis B Surface Antigen Pending Hepatitis B Core IgM Antibody Pending Hepatitis C Antibody Pending HIV (1&2) Antibody Rapid Negative (NEGATIVE) Objective HEAD AND NECK: No JVD. LUNGS: Clear. CARDIOVASCULAR: Irregular S1 and S2 with no gallop or murmur. ABDOMEN: Soft. EXTREMITIES: No pitting edema. Armin May MD Jul 06, 2018 14:09
--- NOTE | 2018-07-06 14:18 | NUR ---
P.T Note: P.T evaluation completed and tx initiated. Please refer to P.T evaluation for current functional status. Skilled P.T service is warranted to increase his strength, balance and endurance to improve safety and independence with ADL/functional mobilities gait. Recommend SNF for further rehab at [place]. Thank you for this referral.
--- NOTE | 2018-07-06 14:42 | General Progress Note ---
Assessment/Plan Problem List: (1) A-fib ICD Codes: I48.91 - Unspecified atrial fibrillation SNOMED: 01643174 (2) Altered level of consciousness ICD Codes: R40.4 - Transient alteration of awareness SNOMED: 6924075 (3) Dehydration ICD Codes: E86.0 - Dehydration SNOMED: 15251059 (4) Pneumonia ICD Codes: J18.9 - Pneumonia, unspecified organism SNOMED: 628798560 Status: progressing Assessment/Plan arrythmia sepsis pna improved dehydration hyponatremia vitals stable Subjective ROS Limited/Unobtainable: Yes Allergies: Coded Allergies: RISPERIDONE (Unverified Allergy, Unknown, 07/04/18) ZIPRASIDONE (Verified Allergy, Unknown, 06/30/18) Uncoded Allergies: RESPERIDONE (Allergy, Unknown, 06/30/18) Objective Last 24 Hour Vital Signs Date Time Temp Pulse Resp B/P (MAP) Pulse Ox O2 Delivery O2 Flow Rate FiO2 07/06/18 12:00 97.3 54 16 154/77 (102) 97 07/06/18 09:00 57 07/06/18 09:00 57 156/72 07/06/18 08:54 Room Air 07/06/18 08:00 97.5 65 16 156/72 (100) 93 07/06/18 08:00 68 07/06/18 04:00 54 07/06/18 04:00 97.8 56 20 129/79 (96) 95 07/06/18 00:00 57 07/06/18 00:00 97.7 55 20 137/69 (91) 98 07/05/18 21:00 Room Air 07/05/18 20:08 94 146/87 07/05/18 20:00 97.7 63 20 146/87 (106) 94 07/05/18 20:00 62 07/05/18 16:00 98.6 77 18 134/69 (90) 98 07/05/18 16:00 66 Intake and Output 07/05/18 07/06/18 19:00 07:00 Intake Total 425 ml 480 ml Output Total 700 ml Balance 425 ml -220 ml Intake Oral 240 ml IV Total 25 ml 240 ml Other 400 ml Output Urine Total 700 ml # Bowel Movements 1 Laboratory Tests 07/05/18 19:33: Hepatitis A IgM Antibody [Pending], Hepatitis B Surface Antigen [Pending], Hepatitis B Core IgM Antibody [Pending], Hepatitis C Antibody [Pending], HIV (1& 2) Antibody Rapid Negative Height (Feet): 5 Height (Inches): 8.00 Weight (Pounds): 137 Neck: supple Cardiovascular: normal rate Respiratory/Chest: lungs clear Pao Pike MD Jul 06, 2018 14:42
--- NOTE | 2018-07-06 16:00 | NUR ---
NURSE NOTES: left a message to dr quiñonez regarding patients heart of 44 @ 0400 this AM. and alysha now @57. that patient is on cardizem 180 and metoprolol 100mg. awaiting callback and new order as of this time.
--- NOTE | 2018-07-06 16:21 | General Progress Note ---
Assessment/Plan Assessment/Plan ASSESSMENT AND PLAN: # Anemia of chronic disease due to underlying chronic medical issues, multifactorial --> Anemia workup has been reviewed --> No evidence of hemolysis is noted, peripheral smear has been reviewed. --> Hgb goal >7. Transfuse prn. --> Epogen or iron at this time is not particularly indicated --> Medications have been reviewed # Thrombocytopenia - potential causes multifactorial, evaluate liver and viral etiologies to begin, also could be related to underlying medications patient has received. --> Hep panel and HIV ordered --> ct a/p shows no e/o disease/hsm/cirrhosis --> Peripheral smear ordered to evaluate for blasts /schistocytes --> abx and other meds have been reviewed --> ok for ppx if plt >50k w/ either heparin or lovenox --> Transfuse if Plt < 20k and fever, or if Plt < 10k without fever # Atelectasis, Optimize pulmonary hygiene/mobilize as tolerated. # Reported fever of unknown origin, afebrile here in the hospital. # Paroxysmal AFib, cardiology recs # Hypertension. # Hypothyroidism. # Lactic acidosis, resolved. # MACARENA, resolved. The timing of this note does not necessarily reflect the time of the patient was seen. Greatly appreciate consultation! Subjective Constitutional: Denies: no symptoms, chills, diaphoresis, fever, malaise, weakness, other HEENT: Denies: no symptoms, eye pain, blurred vision, tearing, double vision, ear pain, ear discharge, nose pain, nose congestion, throat pain, throat swelling, mouth pain, mouth swelling, other Cardiovascular: Denies: no symptoms, chest pain, edema, irregular heart rate, lightheadedness, palpitations, syncope, other Respiratory: Denies: no symptoms, cough, orthopnea, shortness of breath, SOB with excertion, SOB at rest, sputum, stridor, wheezing, other Gastrointestinal/Abdominal: Denies: no symptoms, abdomen distended, abdominal pain, black stools, tarry stools, blood in stool, constipated, diarrhea, difficulty swallowing, nausea, poor appetite, poor fluid intake, rectal bleeding , vomiting, other Genitourinary: Denies: no symptoms, burning, discharge, frequency, flank pain, hematuria, incontinence, pain, urgency, other Neurologic/Psychiatric: Denies: no symptoms, anxiety, depressed, emotional problems, headache, numbness, paresthesia, pre-existing deficit, seizure, tingling, tremors, weakness, other Endocrine: Denies: no symptoms, excessive sweating, flushing, intolerance to cold, intolerance to heat, increased hunger, increased thirst, increased urine, unexplained weight gain, unexplained weight loss, other Hematologic/Lymphatic: Denies: no symptoms, anemia, easy bleeding, easy bruising, other Allergies: Coded Allergies: RISPERIDONE (Unverified Allergy, Unknown, 07/04/18) ZIPRASIDONE (Verified Allergy, Unknown, 06/30/18) Uncoded Allergies: RESPERIDONE (Allergy, Unknown, 06/30/18) Subjective 07/05: no events overnight, no fevers or chills, off abx 07/06: awake, comfortable, no acute events. Objective Last 24 Hour Vital Signs Date Time Temp Pulse Resp B/P (MAP) Pulse Ox O2 Delivery O2 Flow Rate FiO2 07/06/18 16:16 54 07/06/18 16:00 97.2 61 16 140/78 (98) 97 07/06/18 12:00 54 07/06/18 12:00 97.3 54 16 154/77 (102) 97 07/06/18 09:00 57 07/06/18 09:00 57 156/72 07/06/18 08:54 Room Air 07/06/18 08:00 97.5 65 16 156/72 (100) 93 07/06/18 08:00 68 07/06/18 04:00 54 07/06/18 04:00 97.8 56 20 129/79 (96) 95 07/06/18 00:00 57 07/06/18 00:00 97.7 55 20 137/69 (91) 98 07/05/18 21:00 Room Air 07/05/18 20:08 94 146/87 07/05/18 20:00 97.7 63 20 146/87 (106) 94 07/05/18 20:00 62 Intake and Output 07/05/18 07/06/18 19:00 07:00 Intake Total 425 ml 480 ml Output Total 700 ml Balance 425 ml -220 ml Intake Oral 240 ml IV Total 25 ml 240 ml Other 400 ml Output Urine Total 700 ml # Bowel Movements 1 Laboratory Tests 07/05/18 19:33: Hepatitis A IgM Antibody [Pending], Hepatitis B Surface Antigen [Pending], Hepatitis B Core IgM Antibody [Pending], Hepatitis C Antibody [Pending], HIV (1& 2) Antibody Rapid Negative Height (Feet): 5 Height (Inches): 8.00 Weight (Pounds): 137 Objective PHYSICAL EXAMINATION: VITAL SIGNS: Temperature 98.1, pulse is 78, and blood pressure 139/72. HEENT: PERRLA. NECK: Supple. No lymphadenopathy. CHEST: Clear to auscultation. CARDIOVASCULAR: Regular rate and rhythm. No murmurs or extra sounds. GASTROINTESTINAL: Soft, nontender, and nondistended. No organomegaly. EXTREMITIES: No edema. Moves all four extremities. NEUROLOGIC: Sensory intact to light touch. Reflexes are equal on both sides Bennie Goss MD Jul 06, 2018 16:21
--- NOTE | 2018-07-06 19:20 | NUR ---
NURSE NOTES: Received endorsement from ELLA Machado pt in bed watching tv. no sob. pt denies pain. bed at the lowest position, bed side rail upx3, call aid within reach. will continue hourly rounding.
--- NOTE | 2018-07-06 19:23 | NUR ---
HAND-OFF: Report given to sheree michele.
--- NOTE | 2018-07-06 20:16 | Pulmonology Progress Note ---
Assessment/Plan Problems: (1) Fever (2) A-fib (3) Dehydration (4) Altered level of consciousness (5) Hyponatremia Assessment/Plan ASSESSMENT: The patient is a 63-year-old male with schizophrenia, AFib, hypothyroidism, and hypertension, presenting with fevers of unknown origin and altered mental status. He is stable here, afebrile, and does not appear to be infected. The atelectasis on the chest x-ray is likely just atelectasis and not an infiltrate because it is at the base of the chest which is visible in chest cuts on the CT abdomen and pelvis. PROBLEM LIST: 1. Atelectasis. 2. No evidence of respiratory infection. 3. Reported fever of unknown origin, afebrile here in the hospital. 4. Paroxysmal AFib. 5. Hypertension. 6. Hypothyroidism. 7. Lactic acidosis, resolved. 8. MACARENA, resolved. 9. Dehydration. 10. Hyponatremia TREATMENT PLAN: 1. Optimize pulmonary hygiene/mobilize as tolerated 2. CXR 3. Observe off antibiotics. 4. Management of hyponatremia per renal 5. Aspiration precautions. 6. Eliquis for DVT prophylaxis. 7. Follow up configuration consultant's recommendations Subjective Allergies: Coded Allergies: RISPERIDONE (Unverified Allergy, Unknown, 07/04/18) ZIPRASIDONE (Verified Allergy, Unknown, 06/30/18) Uncoded Allergies: RESPERIDONE (Allergy, Unknown, 06/30/18) Subjective AFVSS in NSR, SB earlier No cough, no SOB, no CP, no FC Objective Last 24 Hour Vital Signs Date Time Temp Pulse Resp B/P (MAP) Pulse Ox O2 Delivery O2 Flow Rate FiO2 07/06/18 16:16 57 07/06/18 16:00 97.2 61 16 140/78 (98) 97 07/06/18 12:00 54 07/06/18 12:00 97.3 54 16 154/77 (102) 97 07/06/18 09:00 57 07/06/18 09:00 57 156/72 07/06/18 08:54 Room Air 07/06/18 08:00 97.5 65 16 156/72 (100) 93 07/06/18 08:00 68 07/06/18 04:00 54 07/06/18 04:00 97.8 56 20 129/79 (96) 95 07/06/18 00:00 57 07/06/18 00:00 97.7 55 20 137/69 (91) 98 07/05/18 21:00 Room Air Intake and Output 07/05/18 07/06/18 18:59 06:59 Intake Total 400 ml 505 ml Output Total 700 ml Balance 400 ml -195 ml Intake Oral 240 ml IV Total 265 ml Other 400 ml Output Urine Total 700 ml # Bowel Movements 1 General Appearance: WD/WN, no acute distress HEENT: normocephalic, atraumatic, anicteric, mucous membranes moist Respiratory/Chest: chest wall non-tender, lungs clear, normal breath sounds, no respiratory distress, no accessory muscle use Cardiovascular: normal peripheral pulses, normal rate, regular rhythm Abdomen: normal bowel sounds, soft, non tender, no organomegaly, non distended , no mass Extremities: no cyanosis, no clubbing, no edema Current Medications Medications (Trade) Dose Ordered Sig/Eduardo Route PRN Reason Start Time Stop Time Status Last Admin Dose Admin Acetaminophen (Tylenol) 650 mg Q6H PRN ORAL Mild Pain/Temp > 100.5 06/30/18 17:45 07/30/18 17:44 Apixaban (Eliquis) 5 mg BID ORAL 07/01/18 09:00 07/31/18 08:59 07/06/18 17:18 Diltiazem HCl (Cardizem CD) 180 mg DAILY ORAL 07/01/18 09:00 07/31/18 08:59 07/05/18 09:12 Folic Acid (Folate) 1 mg DAILY ORAL 07/05/18 09:00 07/31/18 09:59 07/06/18 08:27 Metoprolol Tartrate (Lopressor) 100 mg Q12HR ORAL 07/04/18 21:00 07/30/18 20:59 07/05/18 20:08 Pantoprazole (Protonix) 40 mg EVERY 12 HOURS ORAL 07/01/18 21:00 07/31/18 20:59 07/06/18 08:26 Tamsulosin HCl (Flomax) 0.4 mg BEDTIME ORAL 06/30/18 21:00 07/30/18 20:59 07/05/18 20:07 John Mohamud MD Jul 06, 2018 20:16
[2018-07-06] MEDS: Tamsulosin 0.4mg cap ORAL SCH (20:29)
[2018-07-07] VITALS: BP 160/66
--- NOTE | 2018-07-07 02:00 | NUR ---
NURSE NOTES: PT IN BED RESTING NO S/S OF ACUTE DISTRESS. BED AT LOWEST POSSITION, CALL AID WITHIN REACH, SIDE RAIL UPX3. WILL CONTINUE TO MONITOR.
[2018-07-07 04:00] VITALS: BP 131/81
--- NOTE | 2018-07-07 07:19 | NUR ---
NURSE NOTES: received patient report from sheree michele. patient is on bed asleep. not in acute distress. comfortable. SB on hte high 50s. MD quiñonez aware. bed is low and locked. will continue to monitor.
--- NOTE | 2018-07-07 07:19 | NUR ---
HAND-OFF: Report given to Govind Ramirez. pt in bed resting comfortably stable condition.all needs met during my shift
[2018-07-07 08:00] VITALS: BP_SYST 151; BP_SYST 165; BP_DIAS 72; BP_DIAS 95
[2018-07-07] MEDS: dilTIAZem HCl CD 180mg cap ORAL SCH (09:00)
[2018-07-07] MEDS: Eliquis 2.5mg tablet ORAL SCH (09:41)
--- NOTE | 2018-07-07 09:53 | NUR ---
RADIOLOGY DEPT CHEST X-RAY DONE.-P.DYE
--- NOTE | 2018-07-07 10:13 | Infectious Diseases Prog Note ---
Assessment/Plan Assessment/Plan A 1. fever resolved 2. BPH 3. hypothyroidism 4. COPD 5. renal failure resolved P 1. continue off antibiotics Subjective ROS Limited/Unobtainable: No Constitutional: Reports: no symptoms Respiratory: Reports: no symptoms Cardiovascular: Reports: no symptoms Gastrointestinal/Abdominal: Reports: no symptoms Genitourinary: Reports: no symptoms Allergies: Coded Allergies: RISPERIDONE (Unverified Allergy, Unknown, 07/04/18) ZIPRASIDONE (Verified Allergy, Unknown, 06/30/18) Uncoded Allergies: RESPERIDONE (Allergy, Unknown, 06/30/18) Objective Vital Signs Last 24 Hour Vital Signs Date Time Temp Pulse Resp B/P (MAP) Pulse Ox O2 Delivery O2 Flow Rate FiO2 07/07/18 09:00 Room Air 07/07/18 09:00 55 151/72 07/07/18 09:00 64 151/72 07/07/18 08:00 97.3 64 18 151/72 (98) 96 07/07/18 08:00 59 07/07/18 04:00 98.1 54 19 131/81 (98) 95 07/07/18 04:00 56 07/07/18 00:00 98.0 58 19 160/66 (97) 95 07/07/18 00:00 66 07/06/18 21:46 Room Air 07/06/18 21:43 97.7 68 16 165/98 (120) 95 07/06/18 20:29 68 165/98 07/06/18 20:00 66 07/06/18 20:00 97.7 61 20 165/98 (120) 95 07/06/18 16:16 57 07/06/18 16:00 97.2 61 16 140/78 (98) 97 07/06/18 12:00 54 07/06/18 12:00 97.3 54 16 154/77 (102) 97 Height (Feet): 5 Height (Inches): 8.00 Weight (Pounds): 137 General Appearance: no acute distress HEENT: mucous membranes moist Respiratory/Chest: lungs clear Cardiovascular: normal rate Abdomen: soft, non tender Extremities: no edema Neurologic/Psychiatric: alert, oriented x 3, responsive Current Medications Medications (Trade) Dose Ordered Sig/Eduardo Route PRN Reason Start Time Stop Time Status Last Admin Dose Admin Acetaminophen (Tylenol) 650 mg Q6H PRN ORAL Mild Pain/Temp > 100.5 06/30/18 17:45 07/30/18 17:44 Apixaban (Eliquis) 5 mg BID ORAL 07/01/18 09:00 07/31/18 08:59 07/07/18 09:41 Diltiazem HCl (Cardizem CD) 180 mg DAILY ORAL 07/01/18 09:00 07/31/18 08:59 07/05/18 09:12 Folic Acid (Folate) 1 mg DAILY ORAL 07/05/18 09:00 07/31/18 09:59 07/07/18 09:41 Metoprolol Tartrate (Lopressor) 100 mg Q12HR ORAL 07/04/18 21:00 07/30/18 20:59 07/06/18 20:29 Pantoprazole (Protonix) 40 mg EVERY 12 HOURS ORAL 07/01/18 21:00 07/31/18 20:59 07/07/18 09:41 Tamsulosin HCl (Flomax) 0.4 mg BEDTIME ORAL 06/30/18 21:00 07/30/18 20:59 07/06/18 20:29 Ayaz Price MD Jul 07, 2018 10:13
--- NOTE | 2018-07-07 10:52 | NUR ---
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 HR went down to 40's on 07/06/18 @0400. will continue plan of care.
--- NOTE | 2018-07-07 10:59 | Diagnostic Imaging Report ---
Indication: Cough Technique: One view of the chest Comparison: June 30, 2018 Findings: There is some atelectasis at the left lung base, decreased from the prior exam. Lungs and pleural spaces are otherwise clear. Impression: Minimal left basilar atelectasis. No acute process otherwise
[2018-07-07 12:00] VITALS: BP 160/86
[2018-07-07 12:57] LABS: BASOPHILS % (AUTO) 2.3 % (0.0-2.0); EOSINOPHILS % (AUTO) 7.5 % (0.0-3.0); HEMATOCRIT 39.1 % (42.0-52.0); LYMPHOCYTES % (AUTO) 22.7 % (20.0-45.0); MEAN CORPUSCULAR VOLUME 88 FL (80-99); MONOCYTES % (AUTO) 13.5 % (1.0-10.0); NEUTROPHILS % (AUTO) 53.9 % (45.0-75.0); PLATELET COUNT 190 K/UL (150-450); RED BLOOD COUNT 4.45 M/UL (4.70-6.10); RED CELL DISTRIBUTION WIDTH 14.3 % (11.6-14.8); WHITE BLOOD COUNT 6.7 K/UL (4.8-10.8)
[2018-07-07 13:11] LABS: ALANINE AMINOTRANSFERASE 13 U/L (12-78); ALBUMIN 3.4 G/DL (3.4-5.0); ALBUMIN/GLOBULIN RATIO 0.9 (1.0-2.7); ALKALINE PHOSPHATASE 57 U/L (46-116); ANION GAP 9 mmol/L (5-15); ASPARTATE AMINO TRANSFERASE 19 U/L (15-37); BILIRUBIN,TOTAL 0.5 MG/DL (0.2-1.0); BLOOD UREA NITROGEN 19 mg/dL (7-18); CALCIUM 8.9 MG/DL (8.5-10.1); CARBON DIOXIDE 26 MMOL/L (21-32); CHLORIDE 94 MMOL/L (98-107); POTASSIUM 4.1 MMOL/L (3.5-5.1); SODIUM 129 MMOL/L (136-145)
--- NOTE | 2018-07-07 13:49 | NUR ---
RD ASSESSMENT & RECOMMENDATIONS SEE CARE ACTIVITY FOR COMPLETE ASSESSMENT DAILY ESTIMATED NEEDS: Needs based on cardiac/ 59.5kg 25-30 kcals/kg 9615-1788 total kcals 1-1.2 g protein/kg 60-72 g total protein 20-22 mL/kg 4593-7837 total fluid mLs NUTRITION DIAGNOSIS: Altered nutrition related lab values R/T clinical condition, prediabetes as evidenced by low Na (129), low osmolality (272), A1C of 6.1 CURRENT DIET:CARDIAC, soft easy chew PO DIET RECOMMENDATIONS: REGULAR/ texture as tolerated ADDITIONAL RECOMMENDATIONS: * Calibrated bedscale wt * Fluid restriction per MD if medically appropriate -> hyponatremia * Monitor BGs closely, need for carb controlled diet/ hypoglycemic agents -> A1C 6.1.
--- NOTE | 2018-07-07 15:10 | Cardiac Electrophysiology PN ---
Assessment/Plan Assessment/Plan 1. Atrial fibrillation with rapid ventricular response. In and out of atrial fib Decrease Cardizem to 120 mg daily, Eliquis 5 mg bid and metoprolol 100 mg b.i.d. Got alysha at 4 am but HR stable while awake now. 2. Hypertension. Decrease Cardizem CD to 120 mg daily and metoprolol 100 mg b.i.d. 3. Fever Off abx by ID. 4. Benign prostatic hypertrophy on Flomax. REJI RN Subjective Subjective No CP or SOB. In atrial fib with better rate control 50-60s Objective Last 24 Hour Vital Signs Date Time Temp Pulse Resp B/P (MAP) Pulse Ox O2 Delivery O2 Flow Rate FiO2 07/07/18 12:00 97.5 62 19 160/86 (110) 96 07/07/18 09:00 Room Air 07/07/18 09:00 55 151/72 07/07/18 09:00 64 151/72 07/07/18 08:00 97.3 64 18 151/72 (98) 96 07/07/18 08:00 59 07/07/18 04:00 98.1 54 19 131/81 (98) 95 07/07/18 04:00 56 07/07/18 00:00 98.0 58 19 160/66 (97) 95 07/07/18 00:00 66 07/06/18 21:46 Room Air 07/06/18 21:43 97.7 68 16 165/98 (120) 95 07/06/18 20:29 68 165/98 07/06/18 20:00 66 07/06/18 20:00 97.7 61 20 165/98 (120) 95 07/06/18 16:16 57 07/06/18 16:00 97.2 61 16 140/78 (98) 97 Intake and Output 07/06/18 07/07/18 19:00 07:00 Intake Total 540 ml Output Total 300 ml Balance 240 ml Intake Oral 540 ml Output Urine Total 300 ml # Voids 5 # Bowel Movements 1 Laboratory Tests Test 07/07/18 12:40 White Blood Count 6.7 K/UL (4.8-10.8) Red Blood Count 4.45 M/UL (4.70-6.10) L Hemoglobin 13.0 G/DL (14.2-18.0) L Hematocrit 39.1 % (42.0-52.0) L Mean Corpuscular Volume 88 FL (80-99) Mean Corpuscular Hemoglobin 29.2 PG (27.0-31.0) Mean Corpuscular Hemoglobin Concent 33.3 G/DL (32.0-36.0) Red Cell Distribution Width 14.3 % (11.6-14.8) Platelet Count 190 K/UL (150-450) Mean Platelet Volume 6.3 FL (6.5-10.1) L Neutrophils (%) (Auto) 53.9 % (45.0-75.0) Lymphocytes (%) (Auto) 22.7 % (20.0-45.0) Monocytes (%) (Auto) 13.5 % (1.0-10.0) H Eosinophils (%) (Auto) 7.5 % (0.0-3.0) H Basophils (%) (Auto) 2.3 % (0.0-2.0) H Sodium Level 129 MMOL/L (136-145) L Potassium Level 4.1 MMOL/L (3.5-5.1) Chloride Level 94 MMOL/L (98-107) L Carbon Dioxide Level 26 MMOL/L (21-32) Anion Gap 9 mmol/L (5-15) Blood Urea Nitrogen 19 mg/dL (7-18) H Creatinine 1.0 MG/DL (0.55-1.30) Estimat Glomerular Filtration Rate > 60 mL/min (>60) Glucose Level 98 MG/DL (74-106) Calcium Level 8.9 MG/DL (8.5-10.1) Total Bilirubin 0.5 MG/DL (0.2-1.0) Aspartate Amino Transf (AST/SGOT) 19 U/L (15-37) Alanine Aminotransferase (ALT/SGPT) 13 U/L (12-78) Alkaline Phosphatase 57 U/L (46-116) Total Protein 7.2 G/DL (6.4-8.2) Albumin 3.4 G/DL (3.4-5.0) Globulin 3.8 g/dL Albumin/Globulin Ratio 0.9 (1.0-2.7) L Objective HEAD AND NECK: No JVD. LUNGS: Clear. CARDIOVASCULAR: Irregular S1 and S2 with no gallop or murmur. ABDOMEN: Soft. EXTREMITIES: No pitting edema. Armin May MD Jul 07, 2018 15:10
--- NOTE | 2018-07-07 16:49 | Nephrology Progress Note ---
Assessment/Plan Problem List: (1) Dehydration (2) A-fib (3) Anemia (4) Hyponatremia Assessment Renal failure, Dehydration Encephalopathy Psych history HypoThyroidism Mild Anemia Plan Radha U os S Os Uric acid Na 129 cardiac diet IV fluid adjust BP meds Adjusy psych and mind altering meds per psychiatrist watch BP and monitor renal parameters Subjective ROS Limited/Unobtainable: No Constitutional: Reports: malaise Objective Objective Last 24 Hour Vital Signs Date Time Temp Pulse Resp B/P (MAP) Pulse Ox O2 Delivery O2 Flow Rate FiO2 07/07/18 12:00 97.5 62 19 160/86 (110) 96 07/07/18 09:00 Room Air 07/07/18 09:00 55 151/72 07/07/18 09:00 64 151/72 07/07/18 08:00 97.3 64 18 151/72 (98) 96 07/07/18 08:00 59 07/07/18 04:00 98.1 54 19 131/81 (98) 95 07/07/18 04:00 56 07/07/18 00:00 98.0 58 19 160/66 (97) 95 07/07/18 00:00 66 07/06/18 21:46 Room Air 07/06/18 21:43 97.7 68 16 165/98 (120) 95 07/06/18 20:29 68 165/98 07/06/18 20:00 66 07/06/18 20:00 97.7 61 20 165/98 (120) 95 Intake and Output 07/06/18 07/07/18 19:00 07:00 Intake Total 540 ml Output Total 300 ml Balance 240 ml Intake Oral 540 ml Output Urine Total 300 ml # Voids 5 # Bowel Movements 1 Laboratory Tests 07/07/18 12:40: White Blood Count 6.7, Red Blood Count 4.45L, Hemoglobin 13.0L, Hematocrit 39.1L , Mean Corpuscular Volume 88, Mean Corpuscular Hemoglobin 29.2, Mean Corpuscular Hemoglobin Concent 33.3, Red Cell Distribution Width 14.3, Platelet Count 190, Mean Platelet Volume 6.3L, Neutrophils (%) (Auto) 53.9, Lymphocytes ( %) (Auto) 22.7, Monocytes (%) (Auto) 13.5H, Eosinophils (%) (Auto) 7.5H, Basophils (%) (Auto) 2.3H, Sodium Level 129L, Potassium Level 4.1, Chloride Level 94L, Carbon Dioxide Level 26, Anion Gap 9, Blood Urea Nitrogen 19H, Creatinine 1.0, Estimat Glomerular Filtration Rate > 60, Glucose Level 98, Calcium Level 8.9, Total Bilirubin 0.5, Aspartate Amino Transf (AST/SGOT) 19, Alanine Aminotransferase (ALT/SGPT) 13, Alkaline Phosphatase 57, Total Protein 7.2, Albumin 3.4, Globulin 3.8, Albumin/Globulin Ratio 0.9L Height (Feet): 5 Height (Inches): 8.00 Weight (Pounds): 137 General Appearance: no apparent distress Objective no change Lisandro Guzman MD Jul 07, 2018 16:49
--- NOTE | 2018-07-07 16:58 | General Progress Note ---
Assessment/Plan Problem List: (1) A-fib ICD Codes: I48.91 - Unspecified atrial fibrillation SNOMED: 02041956 (2) Altered level of consciousness ICD Codes: R40.4 - Transient alteration of awareness SNOMED: 3233986 (3) Dehydration ICD Codes: E86.0 - Dehydration SNOMED: 71348704 (4) Pneumonia ICD Codes: J18.9 - Pneumonia, unspecified organism SNOMED: 843521676 Status: progressing Status Narrative tachybrady syndrome needs clearance from dr quiñonez before dc Assessment/Plan arrythmia sepsis pna improved dehydration hyponatremia vitals stable Subjective ROS Limited/Unobtainable: Yes Allergies: Coded Allergies: RISPERIDONE (Unverified Allergy, Unknown, 07/04/18) ZIPRASIDONE (Verified Allergy, Unknown, 06/30/18) Uncoded Allergies: RESPERIDONE (Allergy, Unknown, 06/30/18) Objective Last 24 Hour Vital Signs Date Time Temp Pulse Resp B/P (MAP) Pulse Ox O2 Delivery O2 Flow Rate FiO2 07/07/18 12:00 97.5 62 19 160/86 (110) 96 07/07/18 09:00 Room Air 07/07/18 09:00 55 151/72 07/07/18 09:00 64 151/72 07/07/18 08:00 97.3 64 18 151/72 (98) 96 07/07/18 08:00 59 07/07/18 04:00 98.1 54 19 131/81 (98) 95 07/07/18 04:00 56 07/07/18 00:00 98.0 58 19 160/66 (97) 95 07/07/18 00:00 66 07/06/18 21:46 Room Air 07/06/18 21:43 97.7 68 16 165/98 (120) 95 07/06/18 20:29 68 165/98 07/06/18 20:00 66 07/06/18 20:00 97.7 61 20 165/98 (120) 95 Intake and Output 07/06/18 07/07/18 19:00 07:00 Intake Total 540 ml Output Total 300 ml Balance 240 ml Intake Oral 540 ml Output Urine Total 300 ml # Voids 5 # Bowel Movements 1 Laboratory Tests 07/07/18 12:40: White Blood Count 6.7, Red Blood Count 4.45L, Hemoglobin 13.0L, Hematocrit 39.1L , Mean Corpuscular Volume 88, Mean Corpuscular Hemoglobin 29.2, Mean Corpuscular Hemoglobin Concent 33.3, Red Cell Distribution Width 14.3, Platelet Count 190, Mean Platelet Volume 6.3L, Neutrophils (%) (Auto) 53.9, Lymphocytes ( %) (Auto) 22.7, Monocytes (%) (Auto) 13.5H, Eosinophils (%) (Auto) 7.5H, Basophils (%) (Auto) 2.3H, Sodium Level 129L, Potassium Level 4.1, Chloride Level 94L, Carbon Dioxide Level 26, Anion Gap 9, Blood Urea Nitrogen 19H, Creatinine 1.0, Estimat Glomerular Filtration Rate > 60, Glucose Level 98, Calcium Level 8.9, Total Bilirubin 0.5, Aspartate Amino Transf (AST/SGOT) 19, Alanine Aminotransferase (ALT/SGPT) 13, Alkaline Phosphatase 57, Total Protein 7.2, Albumin 3.4, Globulin 3.8, Albumin/Globulin Ratio 0.9L Height (Feet): 5 Height (Inches): 8.00 Weight (Pounds): 137 General Appearance: confused Neck: supple Cardiovascular: normal rate Respiratory/Chest: lungs clear Pao Pike MD Jul 07, 2018 16:58
[2018-07-07] MEDS ORDERED: NaCl 3% 500ml 250 ML IV ONE (18:00)
--- NOTE | 2018-07-07 18:09 | NUR ---
NURSE NOTES: patient will be discharge to [facility] / [facility] @ [phone] [facility] [address]. discharge medications were given and patient verbalized understanding. no acute distress noted. vss stable. awaiting [facility] by taxi.
--- NOTE | 2018-07-07 18:30 | NUR ---
NURSE NOTES: called [facility] that patient is discharged today and on his way. informed that [facility] was with the patient for medications.patient is stable.left facility via cab.
--- NOTE | 2018-07-07 21:07 | Pulmonology Progress Note ---
Assessment/Plan Problems: (1) Fever (2) A-fib (3) Dehydration (4) Altered level of consciousness (5) Hyponatremia Assessment/Plan ASSESSMENT: The patient is a 63-year-old male with schizophrenia, AFib, hypothyroidism, and hypertension, presenting with fevers of unknown origin and altered mental status. He is stable here, afebrile, and does not appear to be infected. The atelectasis on the chest x-ray is likely just atelectasis and not an infiltrate because it is at the base of the chest which is visible in chest cuts on the CT abdomen and pelvis. PROBLEM LIST: 1. Atelectasis. 2. No evidence of respiratory infection. 3. Reported fever of unknown origin, afebrile here in the hospital. 4. Paroxysmal AFib. 5. Hypertension. 6. Hypothyroidism. 7. Lactic acidosis, resolved. 8. MACARENA, resolved. 9. Dehydration. 10. Hyponatremia TREATMENT PLAN: 1. Optimize pulmonary hygiene/mobilize as tolerated 2. CXR better 3. Observe off antibiotics. 4. Management of hyponatremia per renal 5. Aspiration precautions. 6. Eliquis for DVT prophylaxis. 7. Follow up data security consultant's recommendations Subjective Allergies: Coded Allergies: RISPERIDONE (Unverified Allergy, Unknown, 07/04/18) ZIPRASIDONE (Verified Allergy, Unknown, 06/30/18) Uncoded Allergies: RESPERIDONE (Allergy, Unknown, 06/30/18) Subjective Seen earlier AFVSS in NSR No cough, no SOB, no CP, no FC Objective Last 24 Hour Vital Signs Date Time Temp Pulse Resp B/P (MAP) Pulse Ox O2 Delivery O2 Flow Rate FiO2 07/07/18 16:00 59 07/07/18 12:00 97.5 62 19 160/86 (110) 96 07/07/18 12:00 56 07/07/18 09:00 Room Air 07/07/18 09:00 55 151/72 07/07/18 09:00 64 151/72 07/07/18 08:00 97.3 64 18 151/72 (98) 96 07/07/18 08:00 59 07/07/18 04:00 98.1 54 19 131/81 (98) 95 07/07/18 04:00 56 07/07/18 00:00 98.0 58 19 160/66 (97) 95 07/07/18 00:00 66 07/06/18 21:46 Room Air 07/06/18 21:43 97.7 68 16 165/98 (120) 95 Intake and Output 07/06/18 07/07/18 18:59 06:59 Intake Total 540 ml Output Total 300 ml Balance 240 ml Intake Oral 540 ml Output Urine Total 300 ml # Voids 5 # Bowel Movements 1 General Appearance: WD/WN, no acute distress HEENT: normocephalic, atraumatic, anicteric, mucous membranes moist Respiratory/Chest: chest wall non-tender, lungs clear, normal breath sounds, no respiratory distress, no accessory muscle use Cardiovascular: normal peripheral pulses, normal rate, regular rhythm Abdomen: normal bowel sounds, soft, non tender, no organomegaly, non distended , no mass Extremities: no cyanosis, no clubbing, no edema Laboratory Tests 07/07/18 12:40: White Blood Count 6.7, Red Blood Count 4.45L, Hemoglobin 13.0L, Hematocrit 39.1L , Mean Corpuscular Volume 88, Mean Corpuscular Hemoglobin 29.2, Mean Corpuscular Hemoglobin Concent 33.3, Red Cell Distribution Width 14.3, Platelet Count 190, Mean Platelet Volume 6.3L, Neutrophils (%) (Auto) 53.9, Lymphocytes ( %) (Auto) 22.7, Monocytes (%) (Auto) 13.5H, Eosinophils (%) (Auto) 7.5H, Basophils (%) (Auto) 2.3H, Sodium Level 129L, Potassium Level 4.1, Chloride Level 94L, Carbon Dioxide Level 26, Anion Gap 9, Blood Urea Nitrogen 19H, Creatinine 1.0, Estimat Glomerular Filtration Rate > 60, Glucose Level 98, Calcium Level 8.9, Total Bilirubin 0.5, Aspartate Amino Transf (AST/SGOT) 19, Alanine Aminotransferase (ALT/SGPT) 13, Alkaline Phosphatase 57, Total Protein 7.2, Albumin 3.4, Globulin 3.8, Albumin/Globulin Ratio 0.9L John Mohamud MD Jul 07, 2018 21:07
--- NOTE | 2018-07-07 21:40 | General Progress Note ---
Assessment/Plan Assessment/Plan ASSESSMENT AND PLAN: # Anemia of chronic disease due to underlying chronic medical issues, multifactorial --> Anemia workup has been reviewed --> No evidence of hemolysis is noted, peripheral smear has been reviewed. --> Hgb goal >7. Transfuse prn. --> Epogen or iron at this time is not particularly indicated --> Medications have been reviewed # Thrombocytopenia - potential causes multifactorial, evaluate liver and viral etiologies to begin, also could be related to underlying medications patient has received. --> Hep panel and HIV reviewed --> ct a/p shows no e/o disease/hsm/cirrhosis --> Peripheral smear ordered to evaluate for blasts /schistocytes --> abx and other meds have been reviewed --> ok for ppx if plt >50k w/ either heparin or lovenox --> Transfuse if Plt < 20k and fever, or if Plt < 10k without fever # Atelectasis, Optimize pulmonary hygiene/mobilize as tolerated. # Reported fever of unknown origin, afebrile here in the hospital. # Paroxysmal AFib, cardiology recs # Hypertension. # Hypothyroidism. # Lactic acidosis, resolved. # MACARENA, resolved. The timing of this note does not necessarily reflect the time of the patient was seen. Greatly appreciate consultation! Subjective Allergies: Coded Allergies: RISPERIDONE (Unverified Allergy, Unknown, 07/04/18) ZIPRASIDONE (Verified Allergy, Unknown, 06/30/18) Uncoded Allergies: RESPERIDONE (Allergy, Unknown, 06/30/18) Subjective 07/05: no events overnight, no fevers or chills, off abx 07/06: awake, comfortable, no acute events. 07/07: Pt is resting in bed, no acute distress was reported. Objective Last 24 Hour Vital Signs Date Time Temp Pulse Resp B/P (MAP) Pulse Ox O2 Delivery O2 Flow Rate FiO2 07/07/18 16:00 59 07/07/18 12:00 97.5 62 19 160/86 (110) 96 07/07/18 12:00 56 07/07/18 09:00 Room Air 07/07/18 09:00 55 151/72 07/07/18 09:00 64 151/72 07/07/18 08:00 97.3 64 18 151/72 (98) 96 07/07/18 08:00 59 07/07/18 04:00 98.1 54 19 131/81 (98) 95 07/07/18 04:00 56 07/07/18 00:00 98.0 58 19 160/66 (97) 95 07/07/18 00:00 66 07/06/18 21:46 Room Air 07/06/18 21:43 97.7 68 16 165/98 (120) 95 Intake and Output 07/06/18 07/07/18 18:59 06:59 Intake Total 540 ml Output Total 300 ml Balance 240 ml Intake Oral 540 ml Output Urine Total 300 ml # Voids 5 # Bowel Movements 1 Laboratory Tests 07/07/18 12:40: White Blood Count 6.7, Red Blood Count 4.45L, Hemoglobin 13.0L, Hematocrit 39.1L , Mean Corpuscular Volume 88, Mean Corpuscular Hemoglobin 29.2, Mean Corpuscular Hemoglobin Concent 33.3, Red Cell Distribution Width 14.3, Platelet Count 190, Mean Platelet Volume 6.3L, Neutrophils (%) (Auto) 53.9, Lymphocytes ( %) (Auto) 22.7, Monocytes (%) (Auto) 13.5H, Eosinophils (%) (Auto) 7.5H, Basophils (%) (Auto) 2.3H, Sodium Level 129L, Potassium Level 4.1, Chloride Level 94L, Carbon Dioxide Level 26, Anion Gap 9, Blood Urea Nitrogen 19H, Creatinine 1.0, Estimat Glomerular Filtration Rate > 60, Glucose Level 98, Calcium Level 8.9, Total Bilirubin 0.5, Aspartate Amino Transf (AST/SGOT) 19, Alanine Aminotransferase (ALT/SGPT) 13, Alkaline Phosphatase 57, Total Protein 7.2, Albumin 3.4, Globulin 3.8, Albumin/Globulin Ratio 0.9L Height (Feet): 5 Height (Inches): 8.00 Weight (Pounds): 137 Objective PHYSICAL EXAMINATION: VITAL SIGNS: Temperature 98.1, pulse is 78, and blood pressure 139/72. HEENT: PERRLA. NECK: Supple. No lymphadenopathy. CHEST: Clear to auscultation. CARDIOVASCULAR: Regular rate and rhythm. No murmurs or extra sounds. GASTROINTESTINAL: Soft, nontender, and nondistended. No organomegaly. EXTREMITIES: No edema. Moves all four extremities. NEUROLOGIC: Sensory intact to light touch. Reflexes are equal on both sides Bennie Goss MD Jul 07, 2018 21:40
[2018-07-08] MEDS ORDERED: dilTIAZem HCl CD 120mg cap ORAL SCH (09:00)
--- NOTE | 2018-07-09 12:06 | Discharge Summary ---
Discharge Summary Discharge Summary _ DATE OF ADMISSION: 06/30/18 DATE OF DISCHARGE: 07/07/2018 DISCHARGED BY: Dr Pike REASON FOR ADMISSION: 63 years old male with past medical history of hypertension, anxiety, schizophrenia, [facility], presented with altered mental status , generalized weakness ,vomiting and fever. Patient by himself was a poor historian and unable to provide much of the history. However he denied headache and complains of generalized weakness. Upon evaluation vital signs revealed fever 102.4. Laboratory workup revealed no leukocytosis , hemoglobin 12.9,hematocrit 38.1 . Stable electrolytes ,BUN 26 ,creatinine 1.6 . Lactic acid 2.2 . Glucose 94 Stable LFT and lipase Troponin - 0.014 . EKG revealed atrial fibrillation with rapid ventricular response . Albumin 3.3. Chest x-ray revealed left basilar atelectasis versus patchy infiltrate. CT of the head revealed no acute intracranial pathology, but showed age- related volume loss. CT of the abdomen and pelvis demonstrated prominent gas-filled proximal small bowel loops without definite transition point versus enteritis or could be baseline for this patient. Possible mild constipation. No definite acute process otherwise. Pulmonary parenchymal hypertension hyperinflation. Minimal bilateral perinephric fat stranding. Mild prostatomegaly with calcification. Subcentimeter low-attenuation liver lesions, too small to characterize. Urinalysis revealed no evidence of UTI. In emergency department patient received fluid bolus , pancultured and started on empiric antibiotics. Repeated lactic acid showed improvement. Patient was admitted for further management CONSULTANTS: field software engineer Dr. Ram pulmonary Dr.Naraghi ALFONSO specialist Dr. Bah cafe attendant Dr. Guzman academic hospitalist/oncologist Dr. Goss [facility] COURSE: Patient admitted to telemetry floor and started on IV fluids and empiric antibiotics. Manager Sharepoint closely followed. Echocardiogram revealed preserved ejection fraction 60-65% with no evidence of left ventricular hypertrophy. Right ventricular systolic pressure of 30. Repeated troponin was negative as well. Lipid panel was stable. Patient had intermittent episodes of atrial fibrillation. Heart rate was managed with Cardizem and metoprolol, stabilized. Anticoagulation with Eliquis provided. Blood pressure was managed with the current regimen of Cardizem and metoprolol. Supplemental oxygen provided as needed to keep pulse oximetry above 92% . Pulmonary hygiene optimized and provided as needed. Patient was mobilized. Per shoemaker custom no evidence of respiratory infection, CXR showed evidence of atelectasis. Follow-up chest x-ray showed improvement. Aspiration precaution maintained. Inspector Final Assembly Conveyor Line recommended to keep patient off antibiotics and closely monitor respiratory status. Casting And Pasting Supervisor followed. Renal parameters and electrolytes were closely monitored. Nephrotoxic avoided as possible. Electrolytes corrected as needed. Urine studies were done. Creatinine from 1.6 down to 1.0 and BUN from 26 down to 19 . Acute renal failure was likely due to dehydration and resolved with IV hydration. Hemoglobin and hematocrit were closely monitored with goal to keep hemoglobin above 7. Hemoglobin hematocrit remained at baseline , prior to discharge hemoglobin 13 , hematocrit 39.1. Anemia workup revealed evidence of anemia of chronic disease , low folate , stable B12. Patient started on folic acid replacement . TSH was mildly elevated. Dose of Synthroid dose increased. Repeat TSH in 4 weeks. Hepatitis panel negative , HIV test was nonreactive. Infectious disease doctor closely followed. Patient initially started on IV antibiotics . Blood cultures were negative. Fever resolved. Infectious disease doctor recommended to keep patient off antibiotics and monitor clinically. FINAL DIAGNOSES: Atrial fibrillation with rapid ventricular response Dehydration Acute renal failure/acute kidney injury due to dehydration - resolved Lactic acidosis -resolved Altered level of consciousness Hyponatremia Hypertension BPH Hypothyroidism DISCHARGE MEDICATIONS: See Medication Reconciliation list. DISCHARGE INSTRUCTIONS: Patient was discharged to assisted living . Follow up with primary care provider in one week. I have been assigned to dictate discharge summary for this account. I was not involved in the patient's management. Isabel Kan NP Jul 09, 2018 12:06
== END 2018-07-07 18:21 | disposition home or self-care (01) | DRG 683 ==
LOC: EDBD 11:15 → EMR 11:45 → 2E 13:20 → EDBEDREQ 16:27 → 2E 17:05
DX: N17.9 Acute kidney failure, unspecified (principal); E87.1 Hypo-osmolality and hyponatremia; E87.2 Acidosis; J98.11 Atelectasis; I48.0 Paroxysmal atrial fibrillation; R50.9 Fever, unspecified; E86.0 Dehydration; R41.82 Altered mental status, unspecified; N40.0 Benign prostatic hyperplasia without lower urinary tract symptoms; I10 Essential (primary) hypertension; E03.9 Hypothyroidism, unspecified; F39 Unspecified mood [affective] disorder; F20.9 Schizophrenia, unspecified; Z88.8 Allergy status to other drugs, medicaments and biological substances; D69.6 Thrombocytopenia, unspecified; E78.5 Hyperlipidemia, unspecified; Z79.01 Long term (current) use of anticoagulants; D63.8 Anemia in other chronic diseases classified elsewhere; J44.9 Chronic obstructive pulmonary disease, unspecified; F17.200 Nicotine dependence, unspecified, uncomplicated
CPT/HCPCS: 36415; 70450; 71045; 74176; 80053; 80061; 81001; 82140; 82550; 82607; 82728; 82746; 82977; 83036; 83540; 83550; 83605; 83690; 83735; 83880; 83930; 83935; 84100; 84300; 84443; 84484; 84550; 85007; 85025; 85379; 85610; 85730; 86140; 86703; 86705; 86709; 86710; 86803; 86850; 86900; 86901; 87040; 87081; 87340; 93005; 93306; 96361; 96365; 96375; 99291; J2405

== ENCOUNTER 2018-11-04 15:29 | Inpatient (IN) | payer OTHER, MEDICAID ==
[~2018-11-04] VITALS: Ht 167.6 cm; Wt 55.3 kg
[~2018-11-04 15:29] MED LIST: ATORVASTATIN CA20 MG ORAL; BENZTROPINE ME0.5 MG PO; DEPAKOTE ER500 MG ORAL; DILTIAZEM 24HR180 M1 ORAL; ELIQUIS5 MG PO; GABAPENTIN100 MG ORAL; LEVOTHYROXINE75 MCG ORAL; LISINOPRIL20 MG ORAL; METOPROLOL TART25 MG ORAL; MIRTAZAPINE15 M3 ORAL; ZYPREXA10 MG ORAL
[2018-11-04] MEDS ORDERED: SYNTHROID137 MCG ORAL (15:36)
[2018-11-04] MEDS ORDERED: METOPROLOL SUCC25 MG ORAL (15:36)
[2018-11-04] MEDS ORDERED: DILTIAZEM ER180 M2 PO (15:36)
[2018-11-04 15:39] VITALS: BP 130/70
--- NOTE | 2018-11-04 15:41 | NUR ---
ED Nurse Note: PT [facility]IB[facility] . PT WAS CAUGHT AND GUIDED TO FLOOR BY ANOTHER RESIDENT. NO TRAUMA AWAITING ERMD EVAL.
[2018-11-04] MEDS ORDERED: Albuterol ud Inhalation HHN ONE (16:30)
[2018-11-04 16:40] LABS: RED BLOOD COUNT 2.51 M/UL (4.70-6.10); WHITE BLOOD COUNT 2.8 K/UL (4.8-10.8)
[2018-11-04 16:41] LABS: HEMATOCRIT 21.7 % (42.0-52.0); HEMOGLOBIN 7.2 G/DL (14.2-18.0); MEAN CORPUSCULAR VOLUME 87 FL (80-99); PLATELET COUNT 74 K/UL (150-450); RED CELL DISTRIBUTION WIDTH 16.1 % (11.6-14.8)
--- NOTE | 2018-11-04 17:02 | Diagnostic Imaging Report ---
Indication: Reason For Exam: WEAK Technique: One view of the chest Comparison: 07/07/2018 Findings: No acute infiltrates, effusions, or congestion. Tortuous calcified aorta. Normal heart size. Upper mediastinum unremarkable. No significant interim change Impression: No acute process.
--- NOTE | 2018-11-04 17:08 | NUR ---
ED Nurse Note: ermd eval done pt confused ivf up infusing vss pt provided with sandwich. RT at bedside pt getting HHN.
[2018-11-04 17:15] VITALS: BP 159/77
[2018-11-04 17:42] LABS: SODIUM 140 MMOL/L (136-145)
[2018-11-04 17:44] LABS: ANION GAP 7 mmol/L (5-15); BLOOD UREA NITROGEN 29 mg/dL (7-18); CALCIUM 9.1 MG/DL (8.5-10.1); CARBON DIOXIDE 31 MMOL/L (21-32); CHLORIDE 102 MMOL/L (98-107); CREATININE 1.1 MG/DL (0.55-1.30); POTASSIUM 5.3 MMOL/L (3.5-5.1)
[2018-11-04 17:53] LABS: ALANINE AMINOTRANSFERASE 14 U/L (12-78); ALBUMIN 3.2 G/DL (3.4-5.0); ALKALINE PHOSPHATASE 47 U/L (46-116); ASPARTATE AMINO TRANSFERASE 24 U/L (15-37); BILIRUBIN,TOTAL 0.3 MG/DL (0.2-1.0); CREATINE KINASE 105 U/L (26-308)
--- NOTE | 2018-11-04 19:06 | NUR ---
ED Nurse Note: type /screen sent.
[2018-11-04 19:10] VITALS: BP 145/91
--- NOTE | 2018-11-04 19:16 | NUR ---
ED Nurse Note: Patient is resting comfortably, requesting for lights to be turned off. vital signs stable. will continue to monitor.
--- NOTE | 2018-11-04 19:22 | NUR ---
HAND-OFF: Report given to Janina JARAMILLO.
--- NOTE | 2018-11-04 19:27 | Emergency Room Report ---
History of Present Illness General Chief Complaint: Syncope Source: Medical Record, EMS Present Illness HPI This patient presents from an assisted living facility. He has a history of high blood pressure, hypothyroid, schizophrenia and hyperlipidemia. Per report by EMS, the patient had an episode of presyncope. The patient himself has no specific complaints. He denies pain. He denies chest pain or shortness of breath. He denies nausea or vomiting. He denies fever or chills. He has no other complaints. Allergies: Coded Allergies: RISPERIDONE (Unverified Allergy, Unknown, 07/04/18) ZIPRASIDONE (Verified Allergy, Unknown, 06/30/18) Uncoded Allergies: RESPERIDONE (Allergy, Unknown, 06/30/18) Patient History Past Medical History: see triage record, HTN, psych hx, other - HLP, Hypothyroid Social History: Denies: smoking, alcohol use, drug use Reviewed Nursing Documentation: PMH: Agreed; PSxH: Agreed Nursing Documentation-PMH Hx Cardiac Problems: Yes Hx Hypertension: Yes Hx Cancer: No Hx Gastrointestinal Problems: No History Of Psychiatric Problem: Yes - SCHIZO Hx Neurological Problems: No Review of Systems All Other Systems: negative except mentioned in HPI Physical Exam Vital Signs Date Time Temp Pulse Resp B/P (MAP) Pulse Ox O2 Delivery O2 Flow Rate FiO2 11/04/18 15:31 97.9 60 16 130/70 (90) 97 Room Air 11/04/18 16:38 21 Sp02 EP Interpretation: reviewed, normal General Appearance: no apparent distress, alert, GCS 15, non-toxic Head: normocephalic, atraumatic Eyes: bilateral eye normal inspection, bilateral eye PERRL ENT: hearing grossly normal, normal pharynx, no angioedema, normal voice Neck: full range of motion, supple/symm/no masses Respiratory: chest non-tender, lungs clear, normal breath sounds, no respiratory distress, no retraction, no accessory muscle use, speaking full sentences Cardiovascular #1: regular rate, rhythm, no edema Gastrointestinal: normal bowel sounds, non tender, soft, non-distended, no guarding, no rebound Rectal: deferred Musculoskeletal: normal range of motion, non-tender Neurologic: alert, responsive, speech normal, grossly normal Psychiatric: mood/affect normal, no suicidal/homicidal ideation Skin: normal color, no rash, warm/dry, well hydrated Medical Decision Making Diagnostic Impression: Primary Impression: Pre-syncope ER Course This patient presents with presyncope. Initially, the patient's hemoglobin was found to be 7.4. However, there was associated pancytopenia and this did not clinically make sense. Therefore, I repeated the CBC and hemoglobin was 12. The patient did have an episode of presyncope. He will be admitted for monitoring, further evaluation and treatment of his presyncope. Laboratory Tests Test 11/04/18 16:15 11/04/18 16:45 11/04/18 19:20 11/04/18 19:39 White Blood Count 2.8 K/UL (4.8-10.8) L 4.9 K/UL (4.8-10.8) # Red Blood Count 2.51 M/UL (4.70-6.10) L 4.32 M/UL (4.70-6.10) L Hemoglobin 7.2 G/DL (14.2-18.0) L 12.1 G/DL (14.2-18.0) #L Hematocrit 21.7 % (42.0-52.0) L 36.0 % (42.0-52.0) #L Mean Corpuscular Volume 87 FL (80-99) 83 FL (80-99) Mean Corpuscular Hemoglobin 28.7 PG (27.0-31.0) 27.9 PG (27.0-31.0) Mean Corpuscular Hemoglobin Concent 33.2 G/DL (32.0-36.0) 33.5 G/DL (32.0-36.0) Red Cell Distribution Width 16.1 % (11.6-14.8) H 15.6 % (11.6-14.8) H Platelet Count 74 K/UL (150-450) L 85 K/UL (150-450) L Mean Platelet Volume 8.6 FL (6.5-10.1) 6.0 FL (6.5-10.1) L Neutrophils (%) (Auto) % (45.0-75.0) % (45.0-75.0) Lymphocytes (%) (Auto) % (20.0-45.0) % (20.0-45.0) Monocytes (%) (Auto) % (1.0-10.0) % (1.0-10.0) Eosinophils (%) (Auto) % (0.0-3.0) % (0.0-3.0) Basophils (%) (Auto) % (0.0-2.0) % (0.0-2.0) Differential Total Cells Counted 100 Neutrophils % (Manual) 46 % (45-75) Lymphocytes % (Manual) 46 % (20-45) H Monocytes % (Manual) 4 % (1-10) Eosinophils % (Manual) 3 % (0-3) Basophils % (Manual) 1 % (0-2) Band Neutrophils 0 % (0-8) Platelet Estimate Decreased L Platelet Morphology Normal Hypochromasia 1+ Poikilocytosis 1+ Anisocytosis 1+ Schistocytes Occasional Troponin I 0.000 ng/mL (0.000-0.056) Sodium Level 140 MMOL/L (136-145) Potassium Level 5.3 MMOL/L (3.5-5.1) H Chloride Level 102 MMOL/L (98-107) Carbon Dioxide Level 31 MMOL/L (21-32) Anion Gap 7 mmol/L (5-15) Blood Urea Nitrogen 29 mg/dL (7-18) H Creatinine 1.1 MG/DL (0.55-1.30) Estimate Glomerular Filtration Rate > 60 mL/min (>60) Glucose Level 98 MG/DL (74-106) Calcium Level 9.1 MG/DL (8.5-10.1) Total Bilirubin 0.3 MG/DL (0.2-1.0) Aspartate Amino Transferase (AST) 24 U/L (15-37) Alanine Aminotransferase (ALT) 14 U/L (12-78) Alkaline Phosphatase 47 U/L (46-116) Total Creatine Kinase 105 U/L (26-308) Creatine Kinase MB 2.0 NG/ML (0.0-3.6) Creatine Kinase MB Relative Index 1.9 Total Protein 6.3 G/DL (6.4-8.2) L Albumin 3.2 G/DL (3.4-5.0) L Globulin 3.1 g/dL Albumin/Globulin Ratio 1.0 (1.0-2.7) Urine Color Pending Urine Appearance Pending Urine pH Pending Urine Specific [place] Pending Urine Protein Pending Urine Glucose (UA) Pending Urine Ketones Pending Urine Blood Pending Urine Nitrite Pending Urine Bilirubin Pending Urine Urobilinogen Pending Urine Leukocyte Esterase Pending Laboratory Tests Test 11/04/18 16:15 11/04/18 16:45 White Blood Count 2.8 K/UL (4.8-10.8) L Red Blood Count 2.51 M/UL (4.70-6.10) L Hemoglobin 7.2 G/DL (14.2-18.0) L Hematocrit 21.7 % (42.0-52.0) L Mean Corpuscular Volume 87 FL (80-99) Mean Corpuscular Hemoglobin 28.7 PG (27.0-31.0) Mean Corpuscular Hemoglobin Concent 33.2 G/DL (32.0-36.0) Red Cell Distribution Width 16.1 % (11.6-14.8) H Platelet Count 74 K/UL (150-450) L Mean Platelet Volume 8.6 FL (6.5-10.1) Neutrophils (%) (Auto) % (45.0-75.0) Lymphocytes (%) (Auto) % (20.0-45.0) Monocytes (%) (Auto) % (1.0-10.0) Eosinophils (%) (Auto) % (0.0-3.0) Basophils (%) (Auto) % (0.0-2.0) Differential Total Cells Counted 100 Neutrophils % (Manual) 46 % (45-75) Lymphocytes % (Manual) 46 % (20-45) H Monocytes % (Manual) 4 % (1-10) Eosinophils % (Manual) 3 % (0-3) Basophils % (Manual) 1 % (0-2) Band Neutrophils 0 % (0-8) Platelet Estimate Decreased L Platelet Morphology Normal Hypochromasia 1+ Poikilocytosis 1+ Anisocytosis 1+ Schistocytes Occasional Troponin I 0.000 ng/mL (0.000-0.056) Sodium Level 140 MMOL/L (136-145) Potassium Level 5.3 MMOL/L (3.5-5.1) H Chloride Level 102 MMOL/L (98-107) Carbon Dioxide Level 31 MMOL/L (21-32) Anion Gap 7 mmol/L (5-15) Blood Urea Nitrogen 29 mg/dL (7-18) H Creatinine 1.1 MG/DL (0.55-1.30) Estimate Glomerular Filtration Rate > 60 mL/min (>60) Glucose Level 98 MG/DL (74-106) Calcium Level 9.1 MG/DL (8.5-10.1) Total Bilirubin 0.3 MG/DL (0.2-1.0) Aspartate Amino Transferase (AST) 24 U/L (15-37) Alanine Aminotransferase (ALT) 14 U/L (12-78) Alkaline Phosphatase 47 U/L (46-116) Total Creatine Kinase 105 U/L (26-308) Creatine Kinase MB 2.0 NG/ML (0.0-3.6) Creatine Kinase MB Relative Index 1.9 Total Protein 6.3 G/DL (6.4-8.2) L Albumin 3.2 G/DL (3.4-5.0) L Globulin 3.1 g/dL Albumin/Globulin Ratio 1.0 (1.0-2.7) EKG Diagnostic Results Rate: other - SR w/ short OH Rhythm: other - SR ST Segments: no acute changes Rhythm Strip Diag. Results EP Interpretation: yes Rate: 60's Rhythm: no PVC's, no ectopy Chest X-Ray Diagnostic Results Chest X-Ray Diagnostic Results : Chest X-Ray Ordered: Yes # of Views/Limited/Complete: 1 View Indication: Other EP Interpretation: Yes Interpretation: no consolidation, no effusion, no pneumothorax, no acute cardiopulmonary disease Impression: No acute disease Electronically Signed by: Katarzyna Shepherd DO Last Vital Signs Date Time Temp Pulse Resp B/P (MAP) Pulse Ox O2 Delivery O2 Flow Rate FiO2 11/04/18 19:10 74 21 145/91 94 Room Air 11/04/18 17:15 97.9 11/04/18 16:54 21 Disposition: ADMITTED INPATIENT Condition: Stable Referrals: NON PHYSICIAN (PCP) Katarzyna Shepherd DO Nov 04, 2018 19:27
[2018-11-04 20:10] LABS: HEMOGLOBIN 12.1 G/DL (14.2-18.0); MEAN CORPUSCULAR VOLUME 83 FL (80-99); PLATELET COUNT 85 K/UL (150-450); RED BLOOD COUNT 4.32 M/UL (4.70-6.10); RED CELL DISTRIBUTION WIDTH 15.6 % (11.6-14.8); WHITE BLOOD COUNT 4.9 K/UL (4.8-10.8)
--- NOTE | 2018-11-04 21:25 | NUR ---
ED Nurse Note: Called and gave report to Radha JARAMILLO. Patient is awake and alert x 3. vital signs are stable, Iv patent at right hand and saline locked. At end of report Receiving nurse asked for 15 minutes sute to med [employer] before transporting patient.
[2018-11-04 21:30] VITALS: BP 128/63
--- NOTE | 2018-11-04 21:30 | NUR ---
NURSE NOTES: Received pt from Er. pt AOx3. pt 99% o2 sat on 2l NC. skin intact no acute distress noted, no s/s of distress. fall risk precaution in place: bed locked and lowest position, side rail upx2. will reach DR Sargent for admission orders. will continue to monitor pt for any change in condition.
--- NOTE | 2018-11-04 23:20 | NUR ---
NURSE NOTES: tried to reached Dr Sargent. left a message via exchange.
--- NOTE | 2018-11-04 23:40 | NUR ---
NURSE NOTES: received orders from Dr Fleming. covering for Dr Hernandez. orders noted and carried out.
[2018-11-04] MEDS ORDERED: Metoprolol Tartrate 5 MG in D5W 55 ML IVPB SCH (23:45)
[2018-11-05] VITALS: BP 135/73
--- NOTE | 2018-11-05 | NUR ---
NURSE NOTES: pt refusing blood draw for troponin education provided about importance pt still refused the blood draw.
[2018-11-05] MEDS ORDERED: Metoprolol 5mg/5ml Inj ONE (00:12)
--- NOTE | 2018-11-05 01:00 | NUR ---
NURSE NOTES: pt sleeping no change in condition. will continue to monitor for any change in condition.
[2018-11-05 04:00] VITALS: BP 155/87
--- NOTE | 2018-11-05 04:00 | NUR ---
NURSE NOTES: no acute distress noted. no change in condition. will continue to monitor for change in condition.
[2018-11-05] MEDS ORDERED: Metoprolol 25mg tab ORAL SCH (06:00)
--- NOTE | 2018-11-05 06:15 | NUR ---
NURSE NOTES: pt refused EKG, pt states" you can do it after breakfast" day shift nurse Trey aware.
--- NOTE | 2018-11-05 06:49 | NUR ---
NURSE NOTES: Pt remains stable, no change in condition. pt AOx3, no acute distress noted. bed locked and lowest position, side rail upx2, call light and belonging within reach. all needs met during my shift. will endorse plan of care to incoming nurse.
--- NOTE | 2018-11-05 07:10 | NUR ---
REPORT OBTAINED FROM JANNA JARAMILLO . PT RESTING IN BED FREE FROM APPARENT DISTRESS.
--- NOTE | 2018-11-05 07:10 | NUR ---
HAND-OFF: Report given to ELLA Loera.
[2018-11-05 08:00] VITALS: BP 162/108
[2018-11-05] MEDS: Eliquis 5mg tablet ORAL SCH ×2 (08:25→17:22)
[2018-11-05] MEDS ORDERED: Metoprolol 5mg/5ml Inj IVP SCH (08:30)
[2018-11-05 08:32] LABS: EOSINOPHILS % (AUTO) 3.2 % (0.0-3.0); HEMATOCRIT 35.1 % (42.0-52.0); HEMOGLOBIN 11.7 G/DL (14.2-18.0); LYMPHOCYTES % (AUTO) 26.8 % (20.0-45.0); MEAN CORPUSCULAR VOLUME 86 FL (80-99); MONOCYTES % (AUTO) 12.5 % (1.0-10.0); NEUTROPHILS % (AUTO) 56.5 % (45.0-75.0); PLATELET COUNT 118 K/UL (150-450); RED BLOOD COUNT 4.08 M/UL (4.70-6.10); RED CELL DISTRIBUTION WIDTH 15.7 % (11.6-14.8); WHITE BLOOD COUNT 4.9 K/UL (4.8-10.8)
--- NOTE | 2018-11-05 08:40 | NUR ---
FULL REPORT GIVEN TO MD THOMPSON AND NOTIFIED MD OF RHYTHM (A-FIB WITH RVR). SPOKE TO MD THOMPSON WHO IS REQUESTING TO INCREASE ROUTINE LOPRESSOR PO FROM 25 MG Q 12HR TO 50MG PO Q12HR AND TO ADMINISTER LOPRESSOR 5MG IV X1 NOW. PT TOLERATED WELL. NO SIGNIFICANT CHANGES NOTED. HR WENT FROM 125 TO 110-115. CURRENTLY A-FIB.
[2018-11-05 10:11] LABS: ANION GAP 10 mmol/L (5-15); BLOOD UREA NITROGEN 27 mg/dL (7-18); CALCIUM 9.1 MG/DL (8.5-10.1); CARBON DIOXIDE 27 MMOL/L (21-32); CHLORIDE 107 MMOL/L (98-107); CREATININE 1.1 MG/DL (0.55-1.30); POTASSIUM 4.9 MMOL/L (3.5-5.1); SODIUM 143 MMOL/L (136-145)
--- NOTE | 2018-11-05 10:33 | NUR ---
*-* NO INSURANCE INFORMATION UNABLE TO SEND CLINICALS OR REVIEWS *-*
[2018-11-05 12:00] VITALS: BP 155/90
[2018-11-05] MEDS ORDERED: dilTIAZem HCl 25mg/5ml Inj IVP SCH (13:00)
[2018-11-05] MEDS ORDERED: dilTIAZem HCl 30mg tab ORAL SCH (13:00)
--- NOTE | 2018-11-05 13:40 | NUR ---
NURSE NOTES: PT HR IN THE 120'S CONTINUES TO BE IN A-FIB. MD THOMPSON ORDERED CARDIZEM 10MG IV X1 NOW AND CARDIZEM 30MG PO X1 NOW. PT TOLERATED WELL. HR NOW IN THE 90'S BUT CONTINUES TO BE IN A-FIB. MD THOMPSON AWARE.
--- NOTE | 2018-11-05 14:14 | NUR ---
CASE MANAGEMENT:REVIEW 63 YR OLD MALE BIBA FROM [facility] CC: [facility] SI: GIB 97.8 60 16 130/70 97% ON RA H/H-7.2/21.7 IS: 1L NS BOLUS ALBUTEROL HHN IV PEPCID CHEST XRAY : TO TELEMETRY UNIT IS: TRANSFUSE 1 UNIT PRBC'S INTERQUAL CRITERIA MET
--- NOTE | 2018-11-05 14:23 | NUR ---
Charge Nurse Note: Security Specialist from [facility] Willian MCINTYRE, or Malina Bermeo, informed unit Pt. is a [place] patient. requested update on Pt's. Status. recommends if patient needs to be inpatient longer, then need to transfer to [place]. pillowcase turner notified.
--- NOTE | 2018-11-05 14:42 | NUR ---
TRANSFER UPDATE THIS CLINICAL AUDIOLOGIST [facility] AND SPOKE WITH MIGUEL GAVE TELEPHONIC REVIEW PER MIGUEL THEY ARE NOT INTERESTED IN TRAN[facility]ERRING [facility] AT THIS TIME. THEY WILL WAIT FOR RESULTS OF WORKUP [facility] T: [phone] F: [phone]
--- NOTE | 2018-11-05 14:51 | NUR ---
*-* INSURANCE *-* ALL CLINICALS AND REVIEWS HAVE BEEN FAXED TO: [employer] [facility] [place] ELIGIBLE PLEASE FAX THE REVIEW/CLINICALS USE THE SS# THE REF#..... NO FAMILY NURSE ASSIGNED P- [phone].... F- [phone]...REVIEW/CLINICAL
--- NOTE | 2018-11-05 15:27 | Consultation ---
History of Present Illness General Chief Complaint: Syncope Present Illness Allergies: Coded Allergies: RISPERIDONE (Unverified Allergy, Unknown, 07/04/18) ZIPRASIDONE (Verified Allergy, Unknown, 06/30/18) Uncoded Allergies: RESPERIDONE (Allergy, Unknown, 06/30/18) Medication History Scheduled Apixaban (Eliquis), 5 MG PO BID, (Reported) Atorvastatin Calcium* (Atorvastatin Calcium*), 20 MG ORAL BEDTIME, (Reported) Benztropine Mesylate* (Cogentin*), 0.5 MG PO BID, (Reported) Divalproex Sodium* (Depakote Er*), 500 MG ORAL EVERY 12 HOURS, (Reported) Gabapentin* (Gabapentin*), 100 MG ORAL THREE TIMES A DAY, (Reported) Levothyroxine Sodium (Synthroid), 50 MCG ORAL DAILY, (Reported) Levothyroxine Sodium* (Levothyroxine Sodium*), 75 MCG ORAL DAILY, (Reported) Lisinopril (Lisinopril*), 20 MG ORAL DAILY, (Reported) Metoprolol Succinate* (Metoprolol Succinate*), 25 MG ORAL DAILY, (Reported) Mirtazapine* (Mirtazapine*), 30 MG ORAL BEDTIME, (Reported) Olanzapine* (Zyprexa*), 20 MG ORAL DAILY, (Reported) Miscellaneous Medications Diltiazem Hcl (Diltiazem Er), 180 MG PO, (Reported) Patient History Healthcare decision maker Resuscitation status Full Code Advanced Directive on File No Physical Exam Last 24 Hour Vital Signs Date Time Temp Pulse Resp B/P (MAP) Pulse Ox O2 Delivery O2 Flow Rate FiO2 11/05/18 13:22 123 149/90 11/05/18 13:21 123 149/90 11/05/18 12:00 113 11/05/18 12:00 97.6 120 18 155/90 (111) 98 11/05/18 09:00 Room Air 11/05/18 08:43 125 162/108 11/05/18 08:00 123 11/05/18 08:00 97.6 125 18 162/108 (126) 96 11/05/18 06:07 71 155/87 11/05/18 04:00 71 11/05/18 04:00 97.2 80 20 155/87 (109) 99 11/05/18 01:03 123 11/05/18 01:00 Nasal Cannula 2.0 11/05/18 00:36 110 136/86 11/05/18 00:00 97.2 115 20 135/73 (93) 98 11/04/18 21:31 97.9 74 21 145/91 94 Room Air 21 11/04/18 21:30 97.2 120 20 128/63 (84) 100 11/04/18 19:10 74 21 145/91 94 Room Air 11/04/18 17:15 97.9 73 32 159/77 90 Room Air 11/04/18 16:54 67 18 98 Room Air 21 11/04/18 16:40 65 14 97 Room Air 21 11/04/18 16:38 64 14 97 Room Air 21 11/04/18 15:39 97.9 16 130/70 97 Room Air 11/04/18 15:31 97.9 60 16 130/70 (90) 97 Room Air Intake and Output 11/04/18 11/05/18 18:59 06:59 Intake Total 1000 ml 300 ml Balance 1000 ml 300 ml Intake Oral 300 ml IV Total 1000 ml # Voids 3 Laboratory Tests Test 11/04/18 16:15 11/04/18 16:45 11/04/18 19:20 11/04/18 19:39 White Blood Count 2.8 K/UL (4.8-10.8) L 4.9 K/UL (4.8-10.8) # Red Blood Count 2.51 M/UL (4.70-6.10) L 4.32 M/UL (4.70-6.10) L Hemoglobin 7.2 G/DL (14.2-18.0) L 12.1 G/DL (14.2-18.0) #L Hematocrit 21.7 % (42.0-52.0) L 36.0 % (42.0-52.0) #L Mean Corpuscular Volume 87 FL (80-99) 83 FL (80-99) Mean Corpuscular Hemoglobin 28.7 PG (27.0-31.0) 27.9 PG (27.0-31.0) Mean Corpuscular Hemoglobin Concent 33.2 G/DL (32.0-36.0) 33.5 G/DL (32.0-36.0) Red Cell Distribution Width 16.1 % (11.6-14.8) H 15.6 % (11.6-14.8) H Platelet Count 74 K/UL (150-450) L 85 K/UL (150-450) L Mean Platelet Volume 8.6 FL (6.5-10.1) 6.0 FL (6.5-10.1) L Neutrophils (%) (Auto) % (45.0-75.0) % (45.0-75.0) Lymphocytes (%) (Auto) % (20.0-45.0) % (20.0-45.0) Monocytes (%) (Auto) % (1.0-10.0) % (1.0-10.0) Eosinophils (%) (Auto) % (0.0-3.0) % (0.0-3.0) Basophils (%) (Auto) % (0.0-2.0) % (0.0-2.0) Differential Total Cells Counted 100 Neutrophils % (Manual) 46 % (45-75) Lymphocytes % (Manual) 46 % (20-45) H Monocytes % (Manual) 4 % (1-10) Eosinophils % (Manual) 3 % (0-3) Basophils % (Manual) 1 % (0-2) Band Neutrophils 0 % (0-8) Platelet Estimate Decreased L Platelet Morphology Normal Hypochromasia 1+ Poikilocytosis 1+ Anisocytosis 1+ Schistocytes Occasional Troponin I 0.000 ng/mL (0.000-0.056) Sodium Level 140 MMOL/L (136-145) Potassium Level 5.3 MMOL/L (3.5-5.1) H Chloride Level 102 MMOL/L (98-107) Carbon Dioxide Level 31 MMOL/L (21-32) Anion Gap 7 mmol/L (5-15) Blood Urea Nitrogen 29 mg/dL (7-18) H Creatinine 1.1 MG/DL (0.55-1.30) Estimat Glomerular Filtration Rate > 60 mL/min (>60) Glucose Level 98 MG/DL (74-106) Calcium Level 9.1 MG/DL (8.5-10.1) Total Bilirubin 0.3 MG/DL (0.2-1.0) Aspartate Amino Transf (AST/SGOT) 24 U/L (15-37) Alanine Aminotransferase (ALT/SGPT) 14 U/L (12-78) Alkaline Phosphatase 47 U/L (46-116) Total Creatine Kinase 105 U/L (26-308) Creatine Kinase MB 2.0 NG/ML (0.0-3.6) Creatine Kinase MB Relative Index 1.9 Total Protein 6.3 G/DL (6.4-8.2) L Albumin 3.2 G/DL (3.4-5.0) L Globulin 3.1 g/dL Albumin/Globulin Ratio 1.0 (1.0-2.7) Urine Color Pending Urine Appearance Pending Urine pH Pending Urine Specific [place] Pending Urine Protein Pending Urine Glucose (UA) Pending Urine Ketones Pending Urine Blood Pending Urine Nitrite Pending Urine Bilirubin Pending Urine Urobilinogen Pending Urine Leukocyte Esterase Pending Test 11/05/18 07:26 11/05/18 12:11 White Blood Count 4.9 K/UL (4.8-10.8) Red Blood Count 4.08 M/UL (4.70-6.10) L Hemoglobin 11.7 G/DL (14.2-18.0) L Hematocrit 35.1 % (42.0-52.0) L Mean Corpuscular Volume 86 FL (80-99) Mean Corpuscular Hemoglobin 28.8 PG (27.0-31.0) Mean Corpuscular Hemoglobin Concent 33.5 G/DL (32.0-36.0) Red Cell Distribution Width 15.7 % (11.6-14.8) H Platelet Count 118 K/UL (150-450) L Mean Platelet Volume 7.2 FL (6.5-10.1) Neutrophils (%) (Auto) 56.5 % (45.0-75.0) Lymphocytes (%) (Auto) 26.8 % (20.0-45.0) Monocytes (%) (Auto) 12.5 % (1.0-10.0) H Eosinophils (%) (Auto) 3.2 % (0.0-3.0) H Basophils (%) (Auto) 1.0 % (0.0-2.0) Sodium Level 143 MMOL/L (136-145) Potassium Level 4.9 MMOL/L (3.5-5.1) Chloride Level 107 MMOL/L (98-107) Carbon Dioxide Level 27 MMOL/L (21-32) Anion Gap 10 mmol/L (5-15) Blood Urea Nitrogen 27 mg/dL (7-18) H Creatinine 1.1 MG/DL (0.55-1.30) Estimat Glomerular Filtration Rate > 60 mL/min (>60) Glucose Level 67 MG/DL (74-106) L Calcium Level 9.1 MG/DL (8.5-10.1) Magnesium Level 2.1 MG/DL (1.8-2.4) Troponin I 0.000 ng/mL (0.000-0.056) 0.005 ng/mL (0.000-0.056) Pro-B-Type Natriuretic Peptide 3655 pg/mL (0-125) H Height (Feet): 5 Height (Inches): 6.00 Weight (Pounds): 120 Medications Current Medications Medications (Trade) Dose Ordered Sig/Eduardo Route PRN Reason Start Time Stop Time Status Last Admin Dose Admin Apixaban (Eliquis) 5 mg BID ORAL 11/05/18 09:00 12/05/18 08:59 Metoprolol Tartrate (Lopressor) 50 mg Q12HR ORAL 11/05/18 21:00 12/05/18 20:59 Assessment/Plan Assessment/Plan: Hematology/Oncology Consultation Requesting MD: Sharron Sun Date of Service: 11/05/18 Reason for consultation: Anemia and Thrombocytopenia HISTORY OF PRESENT ILLNESS: 63y old male well known to me from 06/2018 admission, is admitted for altered mental status. The patient is confused. Also reported possible presync v syncope epidsode. The patient has a history of hypertension. Denies nausea, vomiting, diarrhea or pain. Denies shortness of breath. Denies cough. The patient also denies chills. The patient is admitted for possible sepsis, azotemia, possible pneumonia on the chest x-ray. The patient denies shortness of breath. Denies chills. Denies fever. Hematology/Oncology was consulted for Anemia and Thrombocytopenia.plt 80-120k PAST MEDICAL HISTORY: Significant for hyperlipidemia, hypertension, mood disorder, hypothyroidism, psychosis, and history of atrial fibrillation. MEDICATIONS: Eliquis, Lipitor, Cogentin, metoprolol, mirtazapine, and lorazepam. ALLERGIES: as noted in chart FAMILY HISTORY: Noncontributory. SOCIAL HISTORY: Denies smoking, alcohol, or illicit drugs. REVIEW OF SYSTEMS: HEENT: Denies headaches. RESPIRATORY: Denies shortness of breath. Denies cough. CARDIOVASCULAR: Denies chest pain. GASTROINTESTINAL: Denies nausea, vomiting, or diarrhea. EXTREMITIES:Denies pain. CENTRAL NERVOUS SYSTEM: Denies changes in vision or speech pattern. Did have syncopal episode and dizziness. Denies headache. Denies diplopia. PHYSICAL EXAMINATION: VITAL SIGNS: Temperature 98.1, pulse is 78, and blood pressure 139/72. HEENT: PERRLA. NECK: Supple. No lymphadenopathy. CHEST: Clear to auscultation. CARDIOVASCULAR: Regular rate and rhythm. No murmurs or extra sounds. GASTROINTESTINAL: Soft, nontender, and nondistended. No organomegaly. EXTREMITIES: No edema. Moves all four extremities. NEUROLOGIC: Sensory intact to light touch. Reflexes are equal on both sides. Current Medications Medications (Trade) Dose Ordered Sig/Eduardo Route PRN Reason Start Time Stop Time Status Last Admin Dose Admin Apixaban (Eliquis) 5 mg BID ORAL 11/05/18 09:00 12/05/18 08:59 Metoprolol Tartrate (Lopressor) 50 mg Q12HR ORAL 11/05/18 21:00 12/05/18 20:59 Active Scripts Medications Dose Route/Sig Max Daily Dose Days Date Category Dose Instructions Diltiazem Er (Diltiazem Hcl) 180 Mg Capsule.er 180 Mg PO 11/04/18 Reported Synthroid (Levothyroxine Sodium) 137 Mcg Tablet 50 Mcg ORAL DAILY 11/04/18 Reported Take in the morning on an empty stomach, at least 30 minutes before food. Metoprolol Succinate* (Metoprolol Succinate) 25 Mg Tab.er.24h 25 Mg ORAL DAILY 11/04/18 Reported Levothyroxine Sodium* (Levothyroxine Sodium) 75 Mcg Tablet 75 Mcg ORAL DAILY 06/30/18 Reported Take in the morning on an empty stomach, at least 30 minutes before food. Atorvastatin Calcium* (Atorvastatin Calcium) 20 Mg Tablet 20 Mg ORAL BEDTIME 06/30/18 Reported Zyprexa* (Olanzapine) 10 Mg Tablet 20 Mg ORAL DAILY 06/30/18 Reported Mirtazapine* (Mirtazapine) 15 Mg Tablet 30 Mg ORAL BEDTIME 06/30/18 Reported Depakote Er* (Divalproex Sodium) 500 Mg Tab.er.24h 500 Mg ORAL EVERY 12 HOURS 06/30/18 Reported Lisinopril* (Lisinopril) 20 Mg Tablet 20 Mg ORAL DAILY 06/30/18 Reported Gabapentin* (Gabapentin) 100 Mg Capsule 100 Mg ORAL THREE TIMES A DAY 06/30/18 Reported Cogentin* (Benztropine Mesylate) 0.5 Mg Tablet 0.5 Mg PO BID 06/30/18 Reported Eliquis (Apixaban) 5 Mg Tablet 5 Mg PO BID 06/30/18 Reported LABORATORY DATA: Laboratory Tests Test 11/04/18 16:15 11/04/18 16:45 11/04/18 19:20 11/04/18 19:39 White Blood Count 2.8 K/UL (4.8-10.8) L 4.9 K/UL (4.8-10.8) # Red Blood Count 2.51 M/UL (4.70-6.10) L 4.32 M/UL (4.70-6.10) L Hemoglobin 7.2 G/DL (14.2-18.0) L 12.1 G/DL (14.2-18.0) #L Hematocrit 21.7 % (42.0-52.0) L 36.0 % (42.0-52.0) #L Mean Corpuscular Volume 87 FL (80-99) 83 FL (80-99) Mean Corpuscular Hemoglobin 28.7 PG (27.0-31.0) 27.9 PG (27.0-31.0) Mean Corpuscular Hemoglobin Concent 33.2 G/DL (32.0-36.0) 33.5 G/DL (32.0-36.0) Red Cell Distribution Width 16.1 % (11.6-14.8) H 15.6 % (11.6-14.8) H Platelet Count 74 K/UL (150-450) L 85 K/UL (150-450) L Mean Platelet Volume 8.6 FL (6.5-10.1) 6.0 FL (6.5-10.1) L Neutrophils (%) (Auto) % (45.0-75.0) % (45.0-75.0) Lymphocytes (%) (Auto) % (20.0-45.0) % (20.0-45.0) Monocytes (%) (Auto) % (1.0-10.0) % (1.0-10.0) Eosinophils (%) (Auto) % (0.0-3.0) % (0.0-3.0) Basophils (%) (Auto) % (0.0-2.0) % (0.0-2.0) Differential Total Cells Counted 100 Neutrophils % (Manual) 46 % (45-75) Lymphocytes % (Manual) 46 % (20-45) H Monocytes % (Manual) 4 % (1-10) Eosinophils % (Manual) 3 % (0-3) Basophils % (Manual) 1 % (0-2) Band Neutrophils 0 % (0-8) Platelet Estimate Decreased L Platelet Morphology Normal Hypochromasia 1+ Poikilocytosis 1+ Anisocytosis 1+ Schistocytes Occasional Troponin I 0.000 ng/mL (0.000-0.056) Sodium Level 140 MMOL/L (136-145) Potassium Level 5.3 MMOL/L (3.5-5.1) H Chloride Level 102 MMOL/L (98-107) Carbon Dioxide Level 31 MMOL/L (21-32) Anion Gap 7 mmol/L (5-15) Blood Urea Nitrogen 29 mg/dL (7-18) H Creatinine 1.1 MG/DL (0.55-1.30) Estimat Glomerular Filtration Rate > 60 mL/min (>60) Glucose Level 98 MG/DL (74-106) Calcium Level 9.1 MG/DL (8.5-10.1) Total Bilirubin 0.3 MG/DL (0.2-1.0) Aspartate Amino Transf (AST/SGOT) 24 U/L (15-37) Alanine Aminotransferase (ALT/SGPT) 14 U/L (12-78) Alkaline Phosphatase 47 U/L (46-116) Total Creatine Kinase 105 U/L (26-308) Creatine Kinase MB 2.0 NG/ML (0.0-3.6) Creatine Kinase MB Relative Index 1.9 Total Protein 6.3 G/DL (6.4-8.2) L Albumin 3.2 G/DL (3.4-5.0) L Globulin 3.1 g/dL Albumin/Globulin Ratio 1.0 (1.0-2.7) Urine Color Pending Urine Appearance Pending Urine pH Pending Urine Specific [place] Pending Urine Protein Pending Urine Glucose (UA) Pending Urine Ketones Pending Urine Blood Pending Urine Nitrite Pending Urine Bilirubin Pending Urine Urobilinogen Pending Urine Leukocyte Esterase Pending Test 11/05/18 07:26 11/05/18 12:11 White Blood Count 4.9 K/UL (4.8-10.8) Red Blood Count 4.08 M/UL (4.70-6.10) L Hemoglobin 11.7 G/DL (14.2-18.0) L Hematocrit 35.1 % (42.0-52.0) L Mean Corpuscular Volume 86 FL (80-99) Mean Corpuscular Hemoglobin 28.8 PG (27.0-31.0) Mean Corpuscular Hemoglobin Concent 33.5 G/DL (32.0-36.0) Red Cell Distribution Width 15.7 % (11.6-14.8) H Platelet Count 118 K/UL (150-450) L Mean Platelet Volume 7.2 FL (6.5-10.1) Neutrophils (%) (Auto) 56.5 % (45.0-75.0) Lymphocytes (%) (Auto) 26.8 % (20.0-45.0) Monocytes (%) (Auto) 12.5 % (1.0-10.0) H Eosinophils (%) (Auto) 3.2 % (0.0-3.0) H Basophils (%) (Auto) 1.0 % (0.0-2.0) Sodium Level 143 MMOL/L (136-145) Potassium Level 4.9 MMOL/L (3.5-5.1) Chloride Level 107 MMOL/L (98-107) Carbon Dioxide Level 27 MMOL/L (21-32) Anion Gap 10 mmol/L (5-15) Blood Urea Nitrogen 27 mg/dL (7-18) H Creatinine 1.1 MG/DL (0.55-1.30) Estimat Glomerular Filtration Rate > 60 mL/min (>60) Glucose Level 67 MG/DL (74-106) L Calcium Level 9.1 MG/DL (8.5-10.1) Magnesium Level 2.1 MG/DL (1.8-2.4) Troponin I 0.000 ng/mL (0.000-0.056) 0.005 ng/mL (0.000-0.056) Pro-B-Type Natriuretic Peptide 3655 pg/mL (0-125) H ASSESSMENT AND PLAN: # Anemia of chronic disease (or of iron deficiency) due to underlying chronic medical issues, multifactorial --> Anemia workup has been ordered (ferritin recently less than 100) --> No evidence of hemolysis is noted, peripheral smear has been reviewed. --> Hgb goal >7. Transfuse prn. --> Epogen or iron at this time is not particularly indicated --> Medications have been reviewed # Thrombocytopenia - potential causes multifactorial, evaluate liver and viral etiologies to begin, also could be related to underlying medications patient has received. --> Hep panel and HIV on PRIOR admission was negative --> US abd to evaluate for cirrhosis and hsm ordered --> Peripheral smear ordered to evaluate for blasts /schistocytes --> abx and other meds have been reviewed --> ok for ppx if plt >50k w/ either heparin or lovenox --> Transfuse if Plt < 20k and fever, or if Plt < 10k without fever # Atelectasis, Optimize pulmonary hygiene/mobilize as tolerated --> on cxr appears stable # Paroxysmal AFib, cardiology recs # Hypertension. # Hypothyroidism. # Lactic acidosis, resolved. # MACARENA, resolved. The timing of this note does not necessarily reflect the time of the patient was seen. Greatly appreciate consultation! Bennie Goss MD Nov 05, 2018 15:27
--- NOTE | 2018-11-05 15:37 | History and Physical ---
History of Present Illness General Date patient seen: Nov 05, 2018 Time patient seen: 15:37 Reason for Hospitalization: Syncope Present Illness HPI 63 y/o man from an [facility], with a history of high blood pressure, hypothyroid, schizophrenia and hyperlipidemia, who per report by EMS, presented to the ED due to an episode of presyncope. The patient himself has no specific complaints. He denies pain. He denies chest pain or shortness of breath. He denies nausea or vomiting. He denies fever or chills. He has no other complaints. He also staets he thinks he "fell" but doesnt remember. Last night, while on the floor, the pt had rapid atrial fibrillation (paroxysmal), metoprolol and NOAC were restarted. Pt denied any symptoms earlier today Allergies: Coded Allergies: RISPERIDONE (Unverified Allergy, Unknown, 07/04/18) ZIPRASIDONE (Verified Allergy, Unknown, 06/30/18) Uncoded Allergies: RESPERIDONE (Allergy, Unknown, 06/30/18) Medication History Scheduled Apixaban (Eliquis), 5 MG PO BID, (Reported) Atorvastatin Calcium* (Atorvastatin Calcium*), 20 MG ORAL BEDTIME, (Reported) Benztropine Mesylate* (Cogentin*), 0.5 MG PO BID, (Reported) Divalproex Sodium* (Depakote Er*), 500 MG ORAL EVERY 12 HOURS, (Reported) Gabapentin* (Gabapentin*), 100 MG ORAL THREE TIMES A DAY, (Reported) Levothyroxine Sodium (Synthroid), 50 MCG ORAL DAILY, (Reported) Levothyroxine Sodium* (Levothyroxine Sodium*), 75 MCG ORAL DAILY, (Reported) Lisinopril (Lisinopril*), 20 MG ORAL DAILY, (Reported) Metoprolol Succinate* (Metoprolol Succinate*), 25 MG ORAL DAILY, (Reported) Mirtazapine* (Mirtazapine*), 30 MG ORAL BEDTIME, (Reported) Olanzapine* (Zyprexa*), 20 MG ORAL DAILY, (Reported) Miscellaneous Medications Diltiazem Hcl (Diltiazem Er), 180 MG PO, (Reported) Patient History History Provided By: Patient Healthcare decision maker Resuscitation status Full Code Advanced Directive on File No Past Medical/Surgical History Past Medical/Surgical History: (1) Anemia Family History Family History: Patient reports no known family medical history. Social History Social History: (1) No significant social history Review of Systems ROS Narrative CONSTITUTIONAL: No weight loss, fever, chills, weakness or fatigue. HEENT: Eyes: No visual loss, blurred vision, double vision or yellow sclerae. Ears, Nose, Throat: No hearing loss, sneezing, congestion, runny nose or sore throat. SKIN: No rash or itching. CARDIOVASCULAR: No chest pain, chest pressure or chest discomfort. No palpitations or edema. RESPIRATORY: No shortness of breath, cough or sputum. GASTROINTESTINAL: No anorexia, nausea, vomiting or diarrhea. No abdominal pain or blood. NEUROLOGICAL: No headache, dizziness, syncope, paralysis, ataxia, numbness or tingling in the extremities. No change in bowel or bladder control. MUSCULOSKELETAL: No muscle, back pain, joint pain or stiffness. HEMATOLOGIC: No anemia, bleeding or bruising. LYMPHATICS: No enlarged nodes. No history of splenectomy. PSYCHIATRIC: No history of depression or anxiety. ENDOCRINOLOGIC: No reports of sweating, cold or heat intolerance. No polyuria or polydipsia. ALLERGIES: No history of asthma, hives, eczema or rhinitis. Physical Exam Physical Exam Narrative General: alert, cooperative, no distress, appears stated age Head: normocephalic, without obvious abnormality, atraumatic Eyes: conjunctivae/corneas clear. PERRL, EOM's intact Throat: lips, mucosa, and tongue normal. MMM Neck: supple, symmetrical, trachea midline, and no JVD Lungs: clear to auscultation bilaterally Heart: regular rate and rhythm, S1, S2 normal, no murmur, click, rub or gallop Abdomen: soft, non-tender, non-distended, bowel sounds normal; no masses or organomegaly Extremities: extremities normal, atraumatic, no cyanosis or edema Pulses: 2+ and symmetric Skin: skin color, texture, turgor normal; no rashes or lesions Neurologic: grossly normal, no focal deficits Last 24 Hour Vital Signs Date Time Temp Pulse Resp B/P (MAP) Pulse Ox O2 Delivery O2 Flow Rate FiO2 11/05/18 13:22 123 149/90 11/05/18 13:21 123 149/90 11/05/18 12:00 113 11/05/18 12:00 97.6 120 18 155/90 (111) 98 11/05/18 09:00 Room Air 11/05/18 08:43 125 162/108 11/05/18 08:00 123 11/05/18 08:00 97.6 125 18 162/108 (126) 96 11/05/18 06:07 71 155/87 11/05/18 04:00 71 11/05/18 04:00 97.2 80 20 155/87 (109) 99 11/05/18 01:03 123 11/05/18 01:00 Nasal Cannula 2.0 11/05/18 00:36 110 136/86 11/05/18 00:00 97.2 115 20 135/73 (93) 98 11/04/18 21:31 97.9 74 21 145/91 94 Room Air 21 11/04/18 21:30 97.2 120 20 128/63 (84) 100 11/04/18 19:10 74 21 145/91 94 Room Air 11/04/18 17:15 97.9 73 32 159/77 90 Room Air 11/04/18 16:54 67 18 98 Room Air 21 11/04/18 16:40 65 14 97 Room Air 21 11/04/18 16:38 64 14 97 Room Air 21 11/04/18 15:39 97.9 16 130/70 97 Room Air Intake and Output 11/04/18 11/05/18 18:59 06:59 Intake Total 1000 ml 300 ml Balance 1000 ml 300 ml Intake Oral 300 ml IV Total 1000 ml # Voids 3 Laboratory Tests Test 11/04/18 16:15 11/04/18 16:45 11/04/18 19:20 11/04/18 19:39 White Blood Count 2.8 K/UL (4.8-10.8) L 4.9 K/UL (4.8-10.8) # Red Blood Count 2.51 M/UL (4.70-6.10) L 4.32 M/UL (4.70-6.10) L Hemoglobin 7.2 G/DL (14.2-18.0) L 12.1 G/DL (14.2-18.0) #L Hematocrit 21.7 % (42.0-52.0) L 36.0 % (42.0-52.0) #L Mean Corpuscular Volume 87 FL (80-99) 83 FL (80-99) Mean Corpuscular Hemoglobin 28.7 PG (27.0-31.0) 27.9 PG (27.0-31.0) Mean Corpuscular Hemoglobin Concent 33.2 G/DL (32.0-36.0) 33.5 G/DL (32.0-36.0) Red Cell Distribution Width 16.1 % (11.6-14.8) H 15.6 % (11.6-14.8) H Platelet Count 74 K/UL (150-450) L 85 K/UL (150-450) L Mean Platelet Volume 8.6 FL (6.5-10.1) 6.0 FL (6.5-10.1) L Neutrophils (%) (Auto) % (45.0-75.0) % (45.0-75.0) Lymphocytes (%) (Auto) % (20.0-45.0) % (20.0-45.0) Monocytes (%) (Auto) % (1.0-10.0) % (1.0-10.0) Eosinophils (%) (Auto) % (0.0-3.0) % (0.0-3.0) Basophils (%) (Auto) % (0.0-2.0) % (0.0-2.0) Differential Total Cells Counted 100 Neutrophils % (Manual) 46 % (45-75) Lymphocytes % (Manual) 46 % (20-45) H Monocytes % (Manual) 4 % (1-10) Eosinophils % (Manual) 3 % (0-3) Basophils % (Manual) 1 % (0-2) Band Neutrophils 0 % (0-8) Platelet Estimate Decreased L Platelet Morphology Normal Hypochromasia 1+ Poikilocytosis 1+ Anisocytosis 1+ Schistocytes Occasional Troponin I 0.000 ng/mL (0.000-0.056) Sodium Level 140 MMOL/L (136-145) Potassium Level 5.3 MMOL/L (3.5-5.1) H Chloride Level 102 MMOL/L (98-107) Carbon Dioxide Level 31 MMOL/L (21-32) Anion Gap 7 mmol/L (5-15) Blood Urea Nitrogen 29 mg/dL (7-18) H Creatinine 1.1 MG/DL (0.55-1.30) Estimat Glomerular Filtration Rate > 60 mL/min (>60) Glucose Level 98 MG/DL (74-106) Calcium Level 9.1 MG/DL (8.5-10.1) Total Bilirubin 0.3 MG/DL (0.2-1.0) Aspartate Amino Transf (AST/SGOT) 24 U/L (15-37) Alanine Aminotransferase (ALT/SGPT) 14 U/L (12-78) Alkaline Phosphatase 47 U/L (46-116) Total Creatine Kinase 105 U/L (26-308) Creatine Kinase MB 2.0 NG/ML (0.0-3.6) Creatine Kinase MB Relative Index 1.9 Total Protein 6.3 G/DL (6.4-8.2) L Albumin 3.2 G/DL (3.4-5.0) L Globulin 3.1 g/dL Albumin/Globulin Ratio 1.0 (1.0-2.7) Urine Color Pending Urine Appearance Pending Urine pH Pending Urine Specific [place] Pending Urine Protein Pending Urine Glucose (UA) Pending Urine Ketones Pending Urine Blood Pending Urine Nitrite Pending Urine Bilirubin Pending Urine Urobilinogen Pending Urine Leukocyte Esterase Pending Test 11/05/18 07:26 11/05/18 12:11 White Blood Count 4.9 K/UL (4.8-10.8) Red Blood Count 4.08 M/UL (4.70-6.10) L Hemoglobin 11.7 G/DL (14.2-18.0) L Hematocrit 35.1 % (42.0-52.0) L Mean Corpuscular Volume 86 FL (80-99) Mean Corpuscular Hemoglobin 28.8 PG (27.0-31.0) Mean Corpuscular Hemoglobin Concent 33.5 G/DL (32.0-36.0) Red Cell Distribution Width 15.7 % (11.6-14.8) H Platelet Count 118 K/UL (150-450) L Mean Platelet Volume 7.2 FL (6.5-10.1) Neutrophils (%) (Auto) 56.5 % (45.0-75.0) Lymphocytes (%) (Auto) 26.8 % (20.0-45.0) Monocytes (%) (Auto) 12.5 % (1.0-10.0) H Eosinophils (%) (Auto) 3.2 % (0.0-3.0) H Basophils (%) (Auto) 1.0 % (0.0-2.0) Sodium Level 143 MMOL/L (136-145) Potassium Level 4.9 MMOL/L (3.5-5.1) Chloride Level 107 MMOL/L (98-107) Carbon Dioxide Level 27 MMOL/L (21-32) Anion Gap 10 mmol/L (5-15) Blood Urea Nitrogen 27 mg/dL (7-18) H Creatinine 1.1 MG/DL (0.55-1.30) Estimat Glomerular Filtration Rate > 60 mL/min (>60) Glucose Level 67 MG/DL (74-106) L Calcium Level 9.1 MG/DL (8.5-10.1) Magnesium Level 2.1 MG/DL (1.8-2.4) Troponin I 0.000 ng/mL (0.000-0.056) 0.005 ng/mL (0.000-0.056) Pro-B-Type Natriuretic Peptide 3655 pg/mL (0-125) H Height (Feet): 5 Height (Inches): 6.00 Weight (Pounds): 120 Medications Current Medications Medications (Trade) Dose Ordered Sig/Eduardo Route PRN Reason Start Time Stop Time Status Last Admin Dose Admin Apixaban (Eliquis) 5 mg BID ORAL 11/05/18 09:00 12/05/18 08:59 Metoprolol Tartrate (Lopressor) 50 mg Q12HR ORAL 11/05/18 21:00 12/05/18 20:59 Assessment/Plan Assessment/Plan: 63 y/o man with hx of paroxysmal atrial fibrillation, presented to the hospital with pre-syncope, found to have rapid atrial fibrillation. #Paroxysmal Atrial Fibrillation #Atrial fibrillation with RVR - Admit to telemetry - Cont beta zack - Cont NOAC - Serial EKG/trops - Cardiology consultation - Echo does not show CHF even though BNP markedly elevated #Anemia due to chronic illness #Thrombocytopenia - Hgb and platelet count appear to be at baseline - Apprec Hematology consult - Monitor CBC closely Sharron Sargent MD Nov 05, 2018 15:37
--- NOTE | 2018-11-05 15:52 | NUR ---
NO SIGNS OF BLEEDING NOTED. OKAY PER MD THOMPSON TO ADMINISTER ROUTINE ELIQUIS.
[2018-11-05 15:56] LABS: % IRON SATURATION 24 % (15-50); IRON 57 ug/dL (50-175); TOTAL IRON BINDING CAPACITY 242 ug/dL (250-450)
[2018-11-05 16:00] VITALS: BP 145/90
[2018-11-05 16:10] LABS: FERRITIN 83 NG/ML (8-388)
--- NOTE | 2018-11-05 18:20 | Cardiology Progress Note ---
Assessment/Plan Assessment/Plan [id number] confused poor historian with reported psych hs paf with rvr iv dilt and bb administered required both apparently previously as wel, will resume no chf no acs sx check tsh and duplex of le Objective Last 24 Hour Vital Signs Date Time Temp Pulse Resp B/P (MAP) Pulse Ox O2 Delivery O2 Flow Rate FiO2 11/05/18 16:00 98.3 115 18 145/90 (108) 95 11/05/18 16:00 106 11/05/18 13:22 123 149/90 11/05/18 13:21 123 149/90 11/05/18 12:00 113 11/05/18 12:00 97.6 120 18 155/90 (111) 98 11/05/18 09:00 Room Air 11/05/18 08:43 125 162/108 11/05/18 08:00 123 11/05/18 08:00 97.6 125 18 162/108 (126) 96 11/05/18 06:07 71 155/87 11/05/18 04:00 71 11/05/18 04:00 97.2 80 20 155/87 (109) 99 11/05/18 01:03 123 11/05/18 01:00 Nasal Cannula 2.0 11/05/18 00:36 110 136/86 11/05/18 00:00 97.2 115 20 135/73 (93) 98 11/04/18 21:31 97.9 74 21 145/91 94 Room Air 21 11/04/18 21:30 97.2 120 20 128/63 (84) 100 11/04/18 19:10 74 21 145/91 94 Room Air Intake and Output 11/04/18 11/05/18 18:59 06:59 Intake Total 1000 ml 300 ml Balance 1000 ml 300 ml Intake Oral 300 ml IV Total 1000 ml # Voids 3 Laboratory Tests Test 11/04/18 19:20 11/04/18 19:39 11/05/18 07:26 11/05/18 12:11 Urine Color Pending Urine Appearance Pending Urine pH Pending Urine Specific [place] Pending Urine Protein Pending Urine Glucose (UA) Pending Urine Ketones Pending Urine Blood Pending Urine Nitrite Pending Urine Bilirubin Pending Urine Urobilinogen Pending Urine Leukocyte Esterase Pending White Blood Count 4.9 K/UL (4.8-10.8) # 4.9 K/UL (4.8-10.8) Red Blood Count 4.32 M/UL (4.70-6.10) L 4.08 M/UL (4.70-6.10) L Hemoglobin 12.1 G/DL (14.2-18.0) #L 11.7 G/DL (14.2-18.0) L Hematocrit 36.0 % (42.0-52.0) #L 35.1 % (42.0-52.0) L Mean Corpuscular Volume 83 FL (80-99) 86 FL (80-99) Mean Corpuscular Hemoglobin 27.9 PG (27.0-31.0) 28.8 PG (27.0-31.0) Mean Corpuscular Hemoglobin Concent 33.5 G/DL (32.0-36.0) 33.5 G/DL (32.0-36.0) Red Cell Distribution Width 15.6 % (11.6-14.8) H 15.7 % (11.6-14.8) H Platelet Count 85 K/UL (150-450) L 118 K/UL (150-450) L Mean Platelet Volume 6.0 FL (6.5-10.1) L 7.2 FL (6.5-10.1) Neutrophils (%) (Auto) % (45.0-75.0) 56.5 % (45.0-75.0) Lymphocytes (%) (Auto) % (20.0-45.0) 26.8 % (20.0-45.0) Monocytes (%) (Auto) % (1.0-10.0) 12.5 % (1.0-10.0) H Eosinophils (%) (Auto) % (0.0-3.0) 3.2 % (0.0-3.0) H Basophils (%) (Auto) % (0.0-2.0) 1.0 % (0.0-2.0) Sodium Level 143 MMOL/L (136-145) Potassium Level 4.9 MMOL/L (3.5-5.1) Chloride Level 107 MMOL/L (98-107) Carbon Dioxide Level 27 MMOL/L (21-32) Anion Gap 10 mmol/L (5-15) Blood Urea Nitrogen 27 mg/dL (7-18) H Creatinine 1.1 MG/DL (0.55-1.30) Estimat Glomerular Filtration Rate > 60 mL/min (>60) Glucose Level 67 MG/DL (74-106) L Calcium Level 9.1 MG/DL (8.5-10.1) Magnesium Level 2.1 MG/DL (1.8-2.4) Troponin I 0.000 ng/mL (0.000-0.056) 0.005 ng/mL (0.000-0.056) Pro-B-Type Natriuretic Peptide 3655 pg/mL (0-125) H Iron Level 57 ug/dL (50-175) Total Iron Binding Capacity 242 ug/dL (250-450) L Percent Iron Saturation 24 % (15-50) Unsaturated Iron Binding 185 ug/dL (112-346) Ferritin 83 NG/ML (8-388) Salo Brooke MD Nov 05, 2018 18:19
--- NOTE | 2018-11-05 19:15 | NUR ---
GAVE FULL REPORT TO MIAN JARAMILLO. PT RESTING IN BED FREE FROM APPARENT DISTRESS. BED ALARM ON PER FALL RISK PRECAUTIONS, NON-SKID SOCK ON PT, CALL LIGHT WITHIN REACH. SAFE AND CLUTTER FREE ENVIRONMENT MAINTAINED.
--- NOTE | 2018-11-05 19:56 | NUR ---
NURSE NOTES: Received report from Marylu JARAMILLO. Patient asleep in bed, on room air, no signs of respiratory distress. Bed in low position, locked, bed alarm on, call light within reach.
[2018-11-05 20:00] VITALS: BP 138/102
[2018-11-05] MEDS ORDERED: Metoprolol Tartrate 50mg tab ORAL SCH (21:00)
[2018-11-05] MEDS: dilTIAZem HCl 30mg tab ORAL SCH (22:14)
[2018-11-06] VITALS: BP 139/85
--- NOTE | 2018-11-06 03:01 | Consultation ---
DATE OF CONSULTATION: 11/05/2018 CARDIOLOGY CONSULTATION CONSULTING PHYSICIAN: Salo Brooke M.D. REFERRING PHYSICIAN: Sharron Sargent M.D. REASON FOR REFERRAL: Atrial fibrillation with rapid ventricular response. HISTORY OF PRESENT ILLNESS: This is a 63-year-old gentleman who is really unable to provide any meaningful history. The patient does not know why he has actually been in the hospital, he got here and what the reason is that he is here. He denies any chest pain or shortness of breath. No PND. No orthopnea. No palpitations. No dizziness or lightheadedness. He states he is active and he cannot elaborate more than that. the patient is admitted to the hospital, was noted to be in sinus rhythm, subsequently converted to atrial fibrillation with rapid ventricular response. This consultation subsequently requested. Again, he denies any chest pain or pressure. PAST MEDICAL HISTORY: According to the old records here at [facility] is positive for history of atrial fibrillation with rapid ventricular response intermittently, history of dehydration, acute renal failure, secondary to dehydration resolved, lactic acidosis resolved, hyponatremia, hypertension, benign prostatic hypertrophy, hypothyroidism, and carries apparently a history of possible previous psychiatric illness, although the details of which is really unknown. ALLERGIES: He is reportedly not allergic to any medications. SOCIAL HISTORY: He smokes he says between half to 1 pack a day. He cannot tell how much he drinks. MEDICATIONS: He denies any drugs. REVIEW OF SYSTEMS: GASTROINTESTINAL: He denies. : He denies. PULMONARY: He denies. CONSTITUTIONAL: He denies. NEUROLOGICAL: He denies. PHYSICAL EXAMINATION: GENERAL: Shows to be an elderly male, in no respiratory distress. HEENT: Very poor dentition. NECK: Supple. LUNGS: Appeared to be decreased breath sounds bilaterally. CARDIAC: Irregularly irregular. Tachycardic. No heaves or thrills. ABDOMEN: Soft, nontender. Positive bowel sounds. EXTREMITIES: There is no clubbing, cyanosis, nor is there any edema. NEUROLOGICAL: He is awake and responsive and completely disoriented. LABORATORY AND DIAGNOSTIC DATA: White count 4.9, hemoglobin 11.7, and platelet count of 118. His platelet count has been as low as 74 and 118, was 190 on prior occasions. His sodium is 142, potassium 4.9, chloride 107, bicarb 27, BUN 27, creatinine 1.1, glucose of 67. Iron is 57, TIBC of 240, saturation. Troponin 0.00, 0.05. ProBNP of 3600 and CK of 105. His TSH was last checked in June 2018 was 4.008. His chest x-ray showed no acute processes. He has had an electrocardiogram at the time of admission shows sinus rhythm, ST-T wave abnormalities, atrial fibrillation with ventricular response . He has previously been on anticoagulation with Eliquis as well, compliance is really not clear with medications. ASSESSMENT AND PLAN: 1. History of paroxysmal episodes of atrial fibrillation with rapid ventricular response. 2. Tachycardia. 3. Dementia and/or psychiatric illness with disorientation. 4. Prostatic hypertrophy. 5. Hypothyroidism. Dr. Sargent, this patient was seen in cardiac consultation. Previous hospitalizations indicate the patient required doses of beta-blockers and Cardizem based on his description of treatment that he was . Those medications will be resumed. He does not appear to be in no respiratory distress. I am some doses of IV beta-blockers and subsequently to which he has 04:18 short-acting. He will be started back on Cardizem CD as well as Toprol-XL as well as Eliquis has already been started. He really appears relatively demented, not sure if this is vascular dementia or multi-infarct. Nevertheless, he will be treated as necessary. His thyroid stimulating hormone should be checked. His lisinopril will be on hold in anticipation of the fact that he requires Cardizem CD as well as low dose of metoprolol to control his heart rate. Further recommendations as become necessary. An echocardiogram will be ordered. He does not have any signs or symptoms of acute coronary syndrome at this time. No congestive heart failure on examination. Salo Brooke M.D. DR: AISHWARYA JOB#: [id number] CC:
[2018-11-06 04:00] VITALS: BP 138/96
[2018-11-06] MEDS: dilTIAZem HCl 30mg tab ORAL SCH ×3 (05:47→21:38)
--- NOTE | 2018-11-06 07:44 | NUR ---
HAND-OFF: Report given to Latia JARAMILLO. Patient in stable condition, plan of care endorsed.
--- NOTE | 2018-11-06 07:44 | NUR ---
NURSE NOTES: Received report from ELLA Tanner. Pt in bed, sleeping, respirations unlabored and regular, no apparent distress noted, bed alarm on, bed in lowest position, call light within reach.
[2018-11-06 08:00] VITALS: BP 135/87
--- NOTE | 2018-11-06 08:50 | NUR ---
NURSE NOTES: LUCÍA Chaudhry attempted IV start on pt, unsuccessful. RN will attempt as well, if unsuccessful will notify
[2018-11-06] MEDS: Eliquis 5mg tablet ORAL SCH ×3 (09:00→21:00)
--- NOTE | 2018-11-06 10:46 | NUR ---
*-* INSURANCE *-* ALL CLINICALS AND REVIEWS HAVE BEEN FAXED TO: [facility] / [facility] USE THE SS# THE REF#..... NO CORRECTION OFFICER REFORMATORY ASSIGNED P- [phone].... F- [phone]...REVIEW/CLINICAL
--- NOTE | 2018-11-06 11:34 | Discharge Summary ---
Discharge Summary Hospital Course Date of Admission Nov 04, 2018 at 18:55 Date of Discharge November 06, 2018 Admitting Diagnosis Pre-syncope Reason for Hospitalization: eval of presyncope, rapid atrial fibrillation HPI Frantz Marina is a 63 year old male who was admitted on Nov 04, 2018 at 18:55 for Gastrointestinal Bleed Consultations Cardiology Procedures Echo Hospital Course 63 y/o man with hx of paroxysmal atrial fibrillation, presented to the hospital with pre-syncope, found to have rapid atrial fibrillation. #Paroxysmal Atrial Fibrillation #Atrial fibrillation with RVR Treated with iv diltiazem and beta blockers, his rate then was controlled. NOAC was continued. echo did not show any remarkable changes. Seen by cardiology and cleared for dc back to [facility] with appropriate outpt followup #Anemia due to chronic illness #Thrombocytopenia - Hgb and platelet count appeared to be at baseline, seen by Hematology, no new changes recommended Discharge Medications Continued Medications: Apixaban (Eliquis) 5 Mg Tablet 5 MG PO BID, TAB Atorvastatin Calcium* (Atorvastatin Calcium*) 20 Mg Tablet 20 MG ORAL BEDTIME, TAB Benztropine Mesylate* (Cogentin*) 0.5 Mg Tablet 0.5 MG PO BID, TAB Diltiazem Hcl (Diltiazem Er) 180 Mg Capsule.er 180 MG PO, CAP Divalproex Sodium* (Depakote Er*) 500 Mg Tab.er.24h 500 MG ORAL EVERY 12 HOURS, TAB Gabapentin* (Gabapentin*) 100 Mg Capsule 100 MG ORAL THREE TIMES A DAY, CAP Levothyroxine Sodium (Synthroid) 137 Mcg Tablet 50 MCG ORAL DAILY, TAB Take in the morning on an empty stomach, at least 30 minutes before food. Lisinopril (Lisinopril*) 20 Mg Tablet 20 MG ORAL DAILY, TAB Metoprolol Succinate* (Metoprolol Succinate*) 25 Mg Tab.er.24h 25 MG ORAL DAILY, TAB Mirtazapine* (Mirtazapine*) 15 Mg Tablet 30 MG ORAL BEDTIME, TAB Olanzapine* (Zyprexa*) 10 Mg Tablet 20 MG ORAL DAILY, #30 TAB 0 Refills Discontinued Medications: Levothyroxine Sodium* (Levothyroxine Sodium*) 75 Mcg Tablet 75 MCG ORAL DAILY, TAB Take in the morning on an empty stomach, at least 30 minutes before food. Discharge Condition Upon Discharge: stable Discharge Disposition Patient was discharged to Assisted Living Facility Discharge Diagnoses: (1) Hyponatremia (2) Anemia (3) Pre-syncope Sharron Sargent MD Nov 06, 2018 11:34
--- NOTE | 2018-11-06 11:58 | NUR ---
NURSE NOTES: Spoke with VONDA Johnson. [facility] from a [facility]. No need for PT eval. B&C facilities are same as going home. Addendum: 11/06/18 at 1215 by SUZIE PEREIRA RN NURSE NOTES: Spoke with Pt's sister, Majo. Pt has demonstrated a decline in function. Majo noted increased weakness. Britney GUO was able to assist pt to bathroom this am with a walker. Majo asked for PT eval for pt. RN spoke with LUCÍA Chaudhry regarding Majo's (sister) concern. Isidoro stated to get PT eval for pt's safety as pt lives at board and care and does not have assistance
[2018-11-06 12:00] VITALS: BP 136/96
--- NOTE | 2018-11-06 12:05 | Diagnostic Imaging Report ---
Indication: Abnormal liver enzymes Technique: Robbins-scale and duplex images of the upper abdomen were obtained. Doppler interrogation of the pancreatic, hepatic, and renal vessels Comparison: No comparison sonograms. Reference made to abdomen pelvis CT dated 06/30/2018 Findings: Gallbladder is unremarkable, without stones, wall thickening, nor pericholecystic fluid. Sonographic Tejada's sign is negative. Common bile duct measures 5 mm in diameter. No intrahepatic biliary ductal dilatation. Liver demonstrates normal echogenicity, no focal abnormality. Portal vein and hepatic veins are patent. Pancreas is incompletely visualized due to overlying bowel gas, visualized portions are unremarkable. Spleen is unremarkable. Left kidney measures 10 cm in length. Right kidney measures 9.3 cm length. Both kidneys demonstrate normal echogenicity. There is no hydronephrosis. No focal abnormality . Non-aneurysmal abdominal aorta . Impression: Essentially unremarkable exam. Negative for gallstones or dilated bile ducts Noted incomplete visualization of the pancreas
--- NOTE | 2018-11-06 13:54 | NUR ---
NURSE NOTES: 1230: Spoke with sister Majo regarding DC paperwork, reviewed all DC information with Majo and gave her DC paperwork folder. Copies in pt's chart. 1345: LUCÍA Chaudhry spoke to Dr. Sargent. Pt is unstable even with assistance from a walker. Davis, PT evaluated pt, pt needs walk, is unsteady. Notified Dr. Sargent. Dr. Sargent cancelled discharge to [facility] and ordered CM consult for SNF recommending [facility] 1355: Spoke with pt's sister, Majo regarding plan to cancel discharge and have pt send to SNF, Majo agrees and states she will get pt's belongings from B&C and await to hear where he will go.
--- NOTE | 2018-11-06 14:06 | NUR ---
DISCHARGE PLANNING MUFFLE WORKER CALLED THE [facility] AND SPOKE WITH SONIA SCOTT PATIENT IS NOT SERVICE CONNECT THUS NOT ELIGIBLE FOR ANY SERVICES PATIENT IS NON FUNDED THUS CANNOT BE REFERRED TO ANY SNF Addendum: 11/06/18 at 1559 by STEPHEN FLOWERS LVN LVN PER 'S REQUEST PATIENT HAS BEEN REFERRED TO [facility] T: [phone] F: [phone] Addendum: 11/06/18 at 1702 by STEPHEN FLOWERS LVN LVN RECEIVED CALL FROM PATIENT'S SISTER AND PROVIDED HER WITH PHONE NUMBER TO [facility] REQUESTED [facility] [employer] TECHNICIAN SPEAK WITH PATIENT ABOUT OBTAINING [facility]
--- NOTE | 2018-11-06 14:27 | NUR ---
P.T NOTE: LATE ENTRY 1345 P.T EVALUATION COMPLETED AND TREATMENT INITIATED. SISTER PRESENT AND PROVIDED PATIENT'S INFO RE: PLOF DURING P.T EVALUATION. PATIENT IS ALERT, ORIENTED TO PERSON AND PLACE BUT NOT TO TIME. PATIENT IS PERIODICALLY CONFUSED AND IMPULSIVE HOWEVER ABLE TO CONVERSE AND FOLLOWS COMMANDS APPROPRIATELY. PATIENT HAD NO C/O PAIN BUT APPEARED GENERALLY WEAK AND YET IMPULSIVE RESULTING TO HIGH FALL RISK. CGA X 1 AND CONSTANT REDIRECTION NEEDED FOR TRANSFERS AND GAIT/AMBULATION ACTIVITIES USING THE [facility]WW. SKILLED P.T SERVICE IS WARRANTED TO ADDRESS STRENGTH , BALANCE AND SAFETY TO INCREASE HIS FUNCTIONAL MOBILITY INDEPENDENCE. RECOMMEND SNF FOR REHAB VS D/C TO PRIOR LIVING ARRANGEMENT WITH HOME P.T. DME TO INCLUDER [facility] AT [place]. THANK YOU FOR THIS REFERRAL.
--- NOTE | 2018-11-06 14:35 | NUR ---
NURSE NOTES: 1405: Spoke with VONDA Johnson. Pt does not have any VA benefits and no insurance. He will not be able to go to SNF. 1430: Spoke with ELLA Cano Van Driver Helper. If pt does not have insurance, [facility] is unable to keep the pt here, he will need to go back to [facility]. 1435: Left message for edvin Kasper's sister to call and discuss DC. Addendum: 11/06/18 at 1623 by SUZIE PEREIRA RN NURSE NOTES: Spoke to Majo, sister. Discussed that pt does not have benefits and needs to discharged and will need to be picked up today. Majo asked to speak with VONDA and has questions about pt's future care. Transferred Majo to VONDA Johnson Left message for Dr. Sargent regarding DC situation Addendum: 11/06/18 at 1633 by SUZIE PEREIRA RN NURSE NOTES: Called again to Majo, sister of pt. Asked if she will be able to steel pickler pt. She stated "not today." She spoke with VONDA Johnson at [facility] and Elizabeth gave her transfer center at [place] phone number and Majo also called Willian at [facility], pt's [facility] social media manager and left a message. RN called VONDA Johnson, no answer
--- NOTE | 2018-11-06 14:53 | NUR ---
Addendum: Spoke to sister re: patient's current functional status. Sister is concern about patient's safety due to worsening of his balance when walking that when he goes back to where pt stays that patient would fall. Discussed sister's concern with RN.
[2018-11-06 16:00] VITALS: BP 132/88
--- NOTE | 2018-11-06 17:15 | NUR ---
NURSE NOTES: Spoke with Majo, pt's sister. Majo does not want pt to be discharged. She feels [facility] needs [facility] and has left message with [facility] social sciences chair to get this done. RN explained to Majo that the pt needs to be picked up. Transferred call to VONDA Aguilar to discussed situation Removed Tele box from pt and SARI Tan got pt dressed
--- NOTE | 2018-11-06 19:11 | Cardiology Progress Note ---
Assessment/Plan Assessment/Plan 1. History of paroxysmal episodes of atrial fibrillation with rapid ventricular response. 2. Tachycardia. 3. Dementia and/or psychiatric illness with disorientation. 4. Prostatic hypertrophy. 5. Hypothyroidism. hr controlled on present meds\ being dcd Subjective Cardiovascular: Denies: chest pain, lightheadedness, palpitations Respiratory: Denies: shortness of breath Gastrointestinal/Abdominal: Denies: abdominal pain Genitourinary: Denies: burning Objective Last 24 Hour Vital Signs Date Time Temp Pulse Resp B/P (MAP) Pulse Ox O2 Delivery O2 Flow Rate FiO2 11/06/18 16:00 98.9 68 17 132/88 (103) 99 11/06/18 15:44 88 11/06/18 14:12 61 136/96 11/06/18 12:01 97 11/06/18 12:00 98.4 61 17 136/96 (109) 97 11/06/18 09:43 85 135/87 11/06/18 09:00 Room Air 11/06/18 08:00 97.7 85 16 135/87 (103) 97 11/06/18 07:37 86 11/06/18 05:47 104 138/96 11/06/18 04:00 97.2 79 20 138/96 (110) 95 11/06/18 04:00 104 11/06/18 00:00 106 11/06/18 00:00 98.0 108 20 139/85 (103) 96 11/05/18 22:14 103 135/90 11/05/18 21:00 Room Air 11/05/18 20:11 130 112/64 11/05/18 20:00 128 11/05/18 20:00 98.0 77 20 138/102 (114) 96 General Appearance: no apparent distress, alert Neck: supple Cardiovascular: normal rate, regular rhythm Respiratory/Chest: lungs clear Abdomen: normal bowel sounds, non tender, soft Extremities: no swelling Intake and Output 11/05/18 11/06/18 18:59 06:59 Intake Total 360 ml Output Total 350 ml Balance 10 ml Intake Oral 360 ml Output Urine Total 350 ml # Voids 1 2 Laboratory Tests Test 11/06/18 05:25 Thyroid Stimulating Hormone (TSH) 4.669 uiU/mL (0.358-3.740) Salo Brooke MD Nov 06, 2018 19:11
--- NOTE | 2018-11-06 19:41 | NUR ---
NURSE NOTES: Received patient from Latia JARAMILLO. Patient is awake and oriented x2. Patient is on room air tolerating well showing no signs of respiratory distress. IV site is right ac 22g patent and asymptomatic. Bed is locked, placed in lowest position, side rails up x3, bed alarm on, call light within reach. Will continue to monitor.
--- NOTE | 2018-11-06 19:41 | NUR ---
HAND-OFF: Report given to ELLA Sarah. PT stable.
[2018-11-06 20:00] VITALS: BP 134/92
[2018-11-07] VITALS: BP 144/99
[2018-11-07] MEDS: dilTIAZem HCl 30mg tab ORAL SCH ×3 (05:46→21:05)
--- NOTE | 2018-11-07 05:46 | NUR ---
NURSE NOTES: Diltiazem was held due to patients heart rate of 58.
--- NOTE | 2018-11-07 07:19 | NUR ---
HAND-OFF: Report given to Devon JARAMILLO. Patient is stable.
--- NOTE | 2018-11-07 07:42 | NUR ---
NURSE NOTES: Received report from ELLA Sarah. Patient in bed resting no active s/s cardiac, respiratory distress noticed at this time. Patient on room air, AOx2, IV on right AC 22G, asymptomatic, patent, intact. Endorsed discharge order placed. Bed in lowest position, side rails upx2, call light within reach. Will continue to monitor.
[2018-11-07 08:00] VITALS: BP 155/86
--- NOTE | 2018-11-07 09:23 | Cardiology Progress Note ---
Assessment/Plan Assessment/Plan 1. History of paroxysmal episodes of atrial fibrillation with rapid ventricular response. 2. Tachycardia. 3. Dementia and/or psychiatric illness with disorientation. 4. Prostatic hypertrophy. 5. Hypothyroidism. hr controlled on present meds\ being dcd await ride form sister pr staff exam c/s sinus at this time not on tele Subjective Cardiovascular: Denies: chest pain, lightheadedness, palpitations Respiratory: Denies: shortness of breath Gastrointestinal/Abdominal: Denies: abdominal pain Genitourinary: Denies: burning Objective Last 24 Hour Vital Signs Date Time Temp Pulse Resp B/P (MAP) Pulse Ox O2 Delivery O2 Flow Rate FiO2 11/07/18 08:38 64 155/86 11/07/18 08:00 97.7 64 20 155/86 (109) 98 11/07/18 05:46 58 140/61 11/07/18 00:00 98.0 90 20 144/99 (114) 96 11/06/18 21:38 106 134/92 11/06/18 21:37 106 134/92 11/06/18 21:00 Room Air 11/06/18 20:00 97.5 106 20 134/92 (106) 99 11/06/18 16:00 98.9 68 17 132/88 (103) 99 11/06/18 15:44 88 11/06/18 14:12 61 136/96 11/06/18 12:01 97 11/06/18 12:00 98.4 61 17 136/96 (109) 97 11/06/18 09:43 85 135/87 General Appearance: alert Cardiovascular: normal rate Respiratory/Chest: lungs clear, normal breath sounds Abdomen: non tender, soft Extremities: no swelling Intake and Output 11/06/18 11/07/18 19:00 07:00 Intake Total 518 ml 240 ml Balance 518 ml 240 ml Intake Oral 518 ml 240 ml # Voids 3 1 Salo Brooke MD Nov 07, 2018 09:23
--- NOTE | 2018-11-07 09:59 | NUR ---
NURSE NOTES: Called Sister for machine operator hop picker time, left message. Awaiting for callback.
--- NOTE | 2018-11-07 11:30 | NUR ---
NURSE NOTES: 1010: Spoke with Sister, Majo, regarding discharge planning. Per Majo, does not feel comfortable sending patient back to [facility] since PT recommended SNF placement. 1120: Spoke with Claudia, medical case manager, regarding discharge planning, per Claudia, KATHI[facility] will not accept the patient due to insurance issue, PT will work with patient today and will be placed back to [facility] tomorrow. Claudia made aware Majo's concern. Walker provided to the patient as PT recommended. 1130: Paged Dr. Sargent, regarding patient not being discharged awaiting for placement. Awaiting for callback. Will continue to monitor.
--- NOTE | 2018-11-07 11:41 | NUR ---
DISCHARGE PLANNING: NOTE [facility]>>> IS NOT ABLE TO ACCOMMODATE THIS PATIENT PER TSERING. T: [phone] F: [phone]
--- NOTE | 2018-11-07 11:54 | NUR ---
CASE MANAGEMENT: REVIEW 11/07/2018 SI: GIB T 98 HR 90 RR 20 B/P 144/99 SATS 96% ON RA NO LABS TODAY IS: CARDIZEM PO Q8H ELIQUIS PO BID LOPRESSOR PO Q12H : TELEMETRY UNIT PLAN OF CARE: CONTINUE TO WORK WITH PT
[2018-11-07 12:00] VITALS: BP 154/85
--- NOTE | 2018-11-07 13:00 | NUR ---
NURSE NOTES: Dr. Sargent made aware patient's discharge order pending since awaiting for SNF placement. Per Dr. Sargent, patient does not need to be in tele, transfer patient to [facility]. Order noted, entered, carried out. Will continue to monitor.
--- NOTE | 2018-11-07 13:08 | Hematology/Onc Progress Note ---
Assessment/Plan Assessment/Plan ASSESSMENT AND PLAN: # Anemia of chronic disease due to underlying chronic medical issues, multifactorial --> Anemia workup has been reviewed. Ferritin 83, TIBC 242 --> No evidence of hemolysis is noted, peripheral smear has been reviewed. --> Hgb goal >7. Transfuse prn. --> Epogen or iron at this time is not particularly indicated --> Medications have been reviewed # Thrombocytopenia - potential causes multifactorial, evaluate liver and viral etiologies to begin, also could be related to underlying medications patient has received. --> Hep panel and HIV on PRIOR admission was negative --> US abd negative for cirrhosis and hsm --> Peripheral smear ordered to evaluate for blasts/schistocytes, none noted --> abx and other meds have been reviewed --> ok for ppx if plt >50k w/ either heparin or lovenox --> Transfuse if Plt < 20k and fever, or if Plt < 10k without fever # Atelectasis, Optimize pulmonary hygiene/mobilize as tolerated --> on cxr appears stable # Paroxysmal AFib, cardiology recs # Hypertension. # Hypothyroidism. # Lactic acidosis, resolved. # MACARENA, resolved. The timing of this note does not necessarily reflect the time of the patient was seen. Greatly appreciate consultation! Subjective Hematologic/Lymphatic: Reports: anemia Allergies: Coded Allergies: RISPERIDONE (Unverified Allergy, Unknown, 07/04/18) ZIPRASIDONE (Verified Allergy, Unknown, 06/30/18) Uncoded Allergies: RESPERIDONE (Allergy, Unknown, 06/30/18) All Systems: reviewed and negative except above Subjective 11/06: Pt resting in bed. No acute distress. DC planning. Objective Objective Current Medications Medications (Trade) Dose Ordered Sig/Eduardo Route PRN Reason Start Time Stop Time Status Last Admin Dose Admin Apixaban (Eliquis) 5 mg BID ORAL 11/05/18 09:00 12/05/18 08:59 11/05/18 17:22 Diltiazem HCl (Cardizem) 30 mg EVERY 8 HOURS ORAL 11/05/18 22:00 12/05/18 21:59 11/06/18 21:38 Metoprolol Tartrate (Lopressor) 100 mg Q12HR ORAL 11/05/18 19:00 12/05/18 18:59 11/07/18 08:38 Last 24 Hour Vital Signs Date Time Temp Pulse Resp B/P (MAP) Pulse Ox O2 Delivery O2 Flow Rate FiO2 11/07/18 09:00 Room Air 11/07/18 08:38 64 155/86 11/07/18 08:00 97.7 64 20 155/86 (109) 98 11/07/18 05:46 58 140/61 11/07/18 00:00 98.0 90 20 144/99 (114) 96 11/06/18 21:38 106 134/92 11/06/18 21:37 106 134/92 11/06/18 21:00 Room Air 11/06/18 20:00 97.5 106 20 134/92 (106) 99 11/06/18 16:00 98.9 68 17 132/88 (103) 99 11/06/18 15:44 88 11/06/18 14:12 61 136/96 11/06/18 12:01 97 11/06/18 12:00 98.4 61 17 136/96 (109) 97 11/06/18 09:43 85 135/87 11/06/18 09:00 Room Air 11/06/18 08:00 97.7 85 16 135/87 (103) 97 11/06/18 07:37 86 11/06/18 05:47 104 138/96 11/06/18 04:00 97.2 79 20 138/96 (110) 95 11/06/18 04:00 104 11/06/18 00:00 106 11/06/18 00:00 98.0 108 20 139/85 (103) 96 11/05/18 22:14 103 135/90 11/05/18 21:00 Room Air 11/05/18 20:11 130 112/64 11/05/18 20:00 128 11/05/18 20:00 98.0 77 20 138/102 (114) 96 11/05/18 16:00 98.3 115 18 145/90 (108) 95 11/05/18 16:00 106 11/05/18 13:22 123 149/90 11/05/18 13:21 123 149/90 Intake and Output 11/06/18 11/07/18 19:00 07:00 Intake Total 518 ml 240 ml Balance 518 ml 240 ml Intake Oral 518 ml 240 ml # Voids 3 1 Labs Test 6/19/19 16:15 11/04/18 16:45 11/04/18 19:39 11/05/18 07:26 White Blood Count 2.8 K/UL (4.8-10.8) 4.9 K/UL (4.8-10.8) 4.9 K/UL (4.8-10.8) Red Blood Count 2.51 M/UL (4.70-6.10) 4.32 M/UL (4.70-6.10) 4.08 M/UL (4.70-6.10) Hemoglobin 7.2 G/DL (14.2-18.0) 12.1 G/DL (14.2-18.0) 11.7 G/DL (14.2-18.0) Hematocrit 21.7 % (42.0-52.0) 36.0 % (42.0-52.0) 35.1 % (42.0-52.0) Mean Corpuscular Volume 87 FL (80-99) 83 FL (80-99) 86 FL (80-99) Mean Corpuscular Hemoglobin 28.7 PG (27.0-31.0) 27.9 PG (27.0-31.0) 28.8 PG (27.0-31.0) Mean Corpuscular Hemoglobin Concent 33.2 G/DL (32.0-36.0) 33.5 G/DL (32.0-36.0) 33.5 G/DL (32.0-36.0) Red Cell Distribution Width 16.1 % (11.6-14.8) 15.6 % (11.6-14.8) 15.7 % (11.6-14.8) Platelet Count 74 K/UL (150-450) 85 K/UL (150-450) 118 K/UL (150-450) Mean Platelet Volume 8.6 FL (6.5-10.1) 6.0 FL (6.5-10.1) 7.2 FL (6.5-10.1) Neutrophils (%) (Auto) % (45.0-75.0) % (45.0-75.0) 56.5 % (45.0-75.0) Lymphocytes (%) (Auto) % (20.0-45.0) % (20.0-45.0) 26.8 % (20.0-45.0) Monocytes (%) (Auto) % (1.0-10.0) % (1.0-10.0) 12.5 % (1.0-10.0) Eosinophils (%) (Auto) % (0.0-3.0) % (0.0-3.0) 3.2 % (0.0-3.0) Basophils (%) (Auto) % (0.0-2.0) % (0.0-2.0) 1.0 % (0.0-2.0) Differential Total Cells Counted 100 Neutrophils % (Manual) 46 % (45-75) Lymphocytes % (Manual) 46 % (20-45) Monocytes % (Manual) 4 % (1-10) Eosinophils % (Manual) 3 % (0-3) Basophils % (Manual) 1 % (0-2) Band Neutrophils 0 % (0-8) Platelet Estimate Decreased Platelet Morphology Normal Hypochromasia 1+ Poikilocytosis 1+ Anisocytosis 1+ Schistocytes Occasional Troponin I 0.000 ng/mL (0.000-0.056) 0.000 ng/mL (0.000-0.056) Sodium Level 140 MMOL/L (136-145) 143 MMOL/L (136-145) Potassium Level 5.3 MMOL/L (3.5-5.1) 4.9 MMOL/L (3.5-5.1) Chloride Level 102 MMOL/L (98-107) 107 MMOL/L (98-107) Carbon Dioxide Level 31 MMOL/L (21-32) 27 MMOL/L (21-32) Anion Gap 7 mmol/L (5-15) 10 mmol/L (5-15) Blood Urea Nitrogen 29 mg/dL (7-18) 27 mg/dL (7-18) Creatinine 1.1 MG/DL (0.55-1.30) 1.1 MG/DL (0.55-1.30) Estimat Glomerular Filtration Rate > 60 mL/min (>60) > 60 mL/min (>60) Glucose Level 98 MG/DL (74-106) 67 MG/DL (74-106) Calcium Level 9.1 MG/DL (8.5-10.1) 9.1 MG/DL (8.5-10.1) Total Bilirubin 0.3 MG/DL (0.2-1.0) Aspartate Amino Transf (AST/SGOT) 24 U/L (15-37) Alanine Aminotransferase (ALT/SGPT) 14 U/L (12-78) Alkaline Phosphatase 47 U/L (46-116) Total Creatine Kinase 105 U/L (26-308) Creatine Kinase MB 2.0 NG/ML (0.0-3.6) Creatine Kinase MB Relative Index 1.9 Total Protein 6.3 G/DL (6.4-8.2) Albumin 3.2 G/DL (3.4-5.0) Globulin 3.1 g/dL Albumin/Globulin Ratio 1.0 (1.0-2.7) Magnesium Level 2.1 MG/DL (1.8-2.4) Pro-B-Type Natriuretic Peptide 3655 pg/mL (0-125) Test 11/05/18 12:11 11/06/18 05:25 Iron Level 57 ug/dL (50-175) Total Iron Binding Capacity 242 ug/dL (250-450) Percent Iron Saturation 24 % (15-50) Unsaturated Iron Binding 185 ug/dL (112-346) Ferritin 83 NG/ML (8-388) Troponin I 0.005 ng/mL (0.000-0.056) Thyroid Stimulating Hormone (TSH) 4.669 uiU/mL (0.358-3.740) Height (Feet): 5 Height (Inches): 6.00 Weight (Pounds): 119 Objective PHYSICAL EXAMINATION: VITAL SIGNS: Have been reviewed. HEENT: PERRLA. NECK: Supple. No lymphadenopathy. CHEST: Clear to auscultation. CARDIOVASCULAR: Regular rate and rhythm. No murmurs or extra sounds. GASTROINTESTINAL: Soft, nontender, and nondistended. No organomegaly. EXTREMITIES: No edema. Moves all four extremities. NEUROLOGIC: Sensory intact to light touch. Reflexes are equal on both sides. Bennie Goss MD Nov 07, 2018 13:08
--- NOTE | 2018-11-07 13:26 | General Progress Note ---
Assessment/Plan Assessment/Plan: 63 y/o man with hx of paroxysmal atrial fibrillation, presented to the hospital with pre-syncope, found to have rapid atrial fibrillation. #Paroxysmal Atrial Fibrillation #Atrial fibrillation with RVR - Cont beta blockers, rate control - Cont NOAC.. - echo did not show any remarkable changes - Apprec cardiology recs #Anemia due to chronic illness #Thrombocytopenia - Hgb and platelet count appeared to be at baseline, seen by Hematology, no new changes recommended Subjective Date patient seen: Nov 07, 2018 Time patient seen: 13:24 ROS Limited/Unobtainable: No Allergies: Coded Allergies: RISPERIDONE (Unverified Allergy, Unknown, 07/04/18) ZIPRASIDONE (Verified Allergy, Unknown, 06/30/18) Uncoded Allergies: RESPERIDONE (Allergy, Unknown, 06/30/18) Subjective Pt not dced yesterday due to being fall risk, RN reported that PT eval revealed unsteady gait and would be high risk for fall upon return to [facility]. DC held, case management consult placed for SNF placement. No chest pain or dyspnea, no other complaints, no tele events. Objective Last 24 Hour Vital Signs Date Time Temp Pulse Resp B/P (MAP) Pulse Ox O2 Delivery O2 Flow Rate FiO2 11/07/18 12:00 98.5 57 20 154/85 (108) 99 11/07/18 09:00 Room Air 11/07/18 08:38 64 155/86 11/07/18 08:00 97.7 64 20 155/86 (109) 98 11/07/18 05:46 58 140/61 11/07/18 00:00 98.0 90 20 144/99 (114) 96 11/06/18 21:38 106 134/92 11/06/18 21:37 106 134/92 11/06/18 21:00 Room Air 11/06/18 20:00 97.5 106 20 134/92 (106) 99 11/06/18 16:00 98.9 68 17 132/88 (103) 99 11/06/18 15:44 88 11/06/18 14:12 61 136/96 Intake and Output 11/06/18 11/07/18 19:00 07:00 Intake Total 518 ml 240 ml Balance 518 ml 240 ml Intake Oral 518 ml 240 ml # Voids 3 1 Height (Feet): 5 Height (Inches): 6.00 Weight (Pounds): 119 Objective General: alert, cooperative, no distress, appears stated age Head: normocephalic, without obvious abnormality, atraumatic Eyes: conjunctivae/corneas clear. PERRL, EOM's intact Throat: lips, mucosa, and tongue normal. MMM Neck: supple, symmetrical, trachea midline, and no JVD Lungs: clear to auscultation bilaterally Heart: regular rate and rhythm, S1, S2 normal, no murmur, click, rub or gallop Abdomen: soft, non-tender, non-distended, bowel sounds normal; no masses or organomegaly Extremities: extremities normal, atraumatic, no cyanosis or edema Pulses: 2+ and symmetric Skin: skin color, texture, turgor normal; no rashes or lesions Neurologic: grossly normal, no focal deficits Sharron Sargent MD Nov 07, 2018 13:26
--- NOTE | 2018-11-07 15:55 | NUR ---
TRANSFER TO FLOOR: Patient transferred to 4E, per Dr. Sargent. Report given to ELLA Jeffery. Belongings and medications given to ELLA Jeffery. Family and or S/O informed of transfer.
--- NOTE | 2018-11-07 15:56 | NUR ---
NURSE NOTES: Received report from ELLA Osorio. Pt transferred to [facility]- from telemetry. Pt is awake, talkative, A/Ox2, no complaints of pain, no apparent distress noted, bed in lowest position, call light within reach.
[2018-11-07 16:00] VITALS: BP 175/89
--- NOTE | 2018-11-07 16:42 | NUR ---
NURSE NOTES: Notified Dr. Brooke BP 175/89 HR 60 asked for PRN HTN medication Addendum: 11/07/18 at 1759 by SUZIE PEREIRA RN NURSE NOTES: Dr. Brooke ordered Lisinopril 10mg PO BID at 1645. Administered ordered dose of Lisinopril 10mg PO at 1510 Rechecked BP at 1750: BP 167/91, HR [address] Brooke
[2018-11-07] MEDS: Eliquis 5mg tablet ORAL SCH (17:04)
[2018-11-07] MEDS: Lisinopril 10mg tab ORAL SCH (17:05)
--- NOTE | 2018-11-07 19:10 | NUR ---
HAND-OFF: Report given to ELLA Hinton..
--- NOTE | 2018-11-07 19:14 | Cardiology Report ---
APPROVED REPORT EKG Measurement Heart [id number] Atrial fibrillation with rapid ventricular response Nonspecific ST abnormality Abnormal ECG
--- NOTE | 2018-11-07 19:14 | Cardiology Report ---
APPROVED REPORT EKG Measurement Heart [id number] Sinus rhythm with premature atrial complexes with aberrant conduction Otherwise normal ECG
--- NOTE | 2018-11-07 19:51 | NUR ---
NURSE NOTES: PT SLEEP IN BED. ON RA, NO SOB, NO ACUTE DISTRESS. RAC IV INTACT, PATENT, SALINE LOCK. FALL PRECAUTION FOR UNSTEADY GAITS. BED ALARMS ON. BED IN LOWEST POSITION, LOCKED. CALL LIGHT IN REACH.
[2018-11-07 20:00] VITALS: BP_SYST 132; BP_SYST 173; BP_DIAS 77; BP_DIAS 88
--- NOTE | 2018-11-07 20:37 | NUR ---
CURRENT BP 173/77, HR 55. PER DR CINTRON, IT IS OKAY TO GIVE SCHEDULED METOPROLOL AND CARDIZEM WITH HR 55. WILL CARRY OUT AND CONT MONITOR.
[2018-11-08] VITALS: BP 157/79
[2018-11-08 04:00] VITALS: BP 148/83
[2018-11-08] MEDS: dilTIAZem HCl 30mg tab ORAL SCH ×3 (05:43→21:02)
--- NOTE | 2018-11-08 07:19 | NUR ---
NURSE NOTES: Patient is in bed asleep. Stable. No facial grimacing or signs of discomfort noted at this time. Call light within reach. WIll continue to monitor.
[2018-11-08 08:00] VITALS: BP 138/63
[2018-11-08] MEDS: Eliquis 5mg tablet ORAL SCH ×2 (09:00→17:37)
--- NOTE | 2018-11-08 09:30 | Cardiology Progress Note ---
Assessment/Plan Assessment/Plan 1. History of paroxysmal episodes of atrial fibrillation with rapid ventricular response. 2. Tachycardia. 3. Dementia and/or psychiatric illness with disorientation. 4. Prostatic hypertrophy. 5. Hypothyroidism. 6. Hyertension hr seems regular i was called several time about htn add acei will swtihc to long acting cardizemcs 180 mg qd being dcd await ride form sister pr staff exam c/w sinus at this time not on tele Subjective Cardiovascular: Denies: chest pain, lightheadedness, palpitations Respiratory: Denies: shortness of breath Gastrointestinal/Abdominal: Denies: abdominal pain Genitourinary: Denies: burning Objective Last 24 Hour Vital Signs Date Time Temp Pulse Resp B/P (MAP) Pulse Ox O2 Delivery O2 Flow Rate FiO2 11/08/18 05:43 54 148/83 11/08/18 04:00 97.2 54 18 148/83 (104) 98 11/08/18 00:00 98.3 50 18 157/79 (105) 97 11/07/18 21:05 55 173/77 11/07/18 21:05 55 173/77 11/07/18 21:00 Room Air 11/07/18 20:00 97.5 55 16 173/77 (109) 97 11/07/18 17:05 175/89 11/07/18 16:00 97.9 60 14 175/89 (117) 98 11/07/18 14:00 57 154/85 11/07/18 12:00 98.5 57 20 154/85 (108) 99 General Appearance: no apparent distress, alert Neck: supple Cardiovascular: normal rate Respiratory/Chest: lungs clear Abdomen: normal bowel sounds, non tender Extremities: no swelling Intake and Output 11/07/18 11/08/18 19:00 07:00 Intake Total 480 ml 260 ml Output Total 400 ml 350 ml Balance 80 ml -90 ml Intake Oral 480 ml 260 ml Output Urine Total 400 ml 350 ml # Voids 3 Salo Brooke MD Nov 08, 2018 09:30
[2018-11-08] MEDS: Lisinopril 10mg tab ORAL SCH ×2 (09:31→17:37)
--- NOTE | 2018-11-08 11:12 | Cardiology Report ---
APPROVED REPORT EXAM: Two-dimensional and M-mode echocardiogram with Doppler and color Doppler. INDICATION AF M-Mode DIMENSIONS IVSd0.9 (0.7-1.1cm)Left Atrium (MM)2.7 (1.6-4.0cm) LVDd4.3 (3.5-5.6cm)Aortic Root2.8 (2.0-3.7cm) PWd1.1 (0.7-1.1cm)Aortic Cusp Exc.1.8 (1.5-2.0cm) LVDs2.5 (2.5-4.0cm) PWs1.3 cm Normal left ventricular chamber size, systolic function and wall motion to extent visualized. Left ventricular ejection fraction estimated to be 60 %. No evidence of left ventricular hypertrophy. Anterior Echo-free space, may be due to pericardial fat or effusion. All other cardiac chamber sizes are within normal limits. Focal aortic valve sclerosis with adequate cusp excursion. Thickened mitral valve leaflets with normal excursion. Mitral annulus and aortic root calcification. Pulmonic valve not well visualized. Normal tricuspid valve structure. IVC at normal size and collapsing with respiration. A color flow and spectral Doppler study was performed and revealed: Trace mitral regurgitation. Can not determine left ventricular diastolic function by mitral diastolic velocities due to atrial fibrillation. Trace tricuspid regurgitation. Tricuspid systolic velocities suggests peak right ventricular systolic pressure of 16 mmHg.
[2018-11-08 12:00] VITALS: BP 130/72
--- NOTE | 2018-11-08 13:58 | Hematology/Onc Progress Note ---
Assessment/Plan Assessment/Plan ASSESSMENT AND PLAN: # Anemia of chronic disease due to underlying chronic medical issues, multifactorial --> Anemia workup has been reviewed. Ferritin 83, TIBC 242 --> No evidence of hemolysis is noted, peripheral smear has been reviewed. --> Hgb goal >7. Transfuse prn. --> Epogen or iron at this time is not particularly indicated --> Medications have been reviewed # Thrombocytopenia - potential causes multifactorial, evaluate liver and viral etiologies to begin, also could be related to underlying medications patient has received. --> Hep panel and HIV on PRIOR admission was negative --> US abd negative for cirrhosis and hsm --> Peripheral smear ordered to evaluate for blasts/schistocytes, none noted --> abx and other meds have been reviewed --> ok for ppx if plt >50k w/ either heparin or lovenox --> Transfuse if Plt < 20k and fever, or if Plt < 10k without fever # Atelectasis, Optimize pulmonary hygiene/mobilize as tolerated --> on cxr appears stable # Paroxysmal AFib, cardiology recs # Hypertension. # Hypothyroidism. # Lactic acidosis, resolved. # MACARENA, resolved. The timing of this note does not necessarily reflect the time of the patient was seen. Greatly appreciate consultation! Subjective Hematologic/Lymphatic: Reports: anemia Allergies: Coded Allergies: RISPERIDONE (Unverified Allergy, Unknown, 07/04/18) ZIPRASIDONE (Verified Allergy, Unknown, 06/30/18) Uncoded Allergies: RESPERIDONE (Allergy, Unknown, 06/30/18) All Systems: reviewed and negative except above Subjective 11/06: Pt resting in bed. No acute distress. DC planning. 11/08: Pt asleep in bed. No acute events. Objective Objective Current Medications Medications (Trade) Dose Ordered Sig/Eduardo Route PRN Reason Start Time Stop Time Status Last Admin Dose Admin Apixaban (Eliquis) 5 mg BID ORAL 11/07/18 18:00 12/05/18 08:59 Diltiazem HCl (Cardizem CD) 120 mg DAILY ORAL 11/09/18 09:00 12/09/18 08:59 Diltiazem HCl (Cardizem) 30 mg EVERY 8 HOURS ORAL 11/08/18 14:00 11/08/18 23:59 11/08/18 13:13 Hydralazine HCl (Apresoline) 50 mg QIDPRN PRN ORAL HTN SBP >155 11/07/18 19:30 12/07/18 19:29 Lisinopril (Zestril) 10 mg BID ORAL 11/07/18 18:00 12/07/18 17:59 11/08/18 09:31 Metoprolol Tartrate (Lopressor) 100 mg Q12HR ORAL 11/07/18 21:00 12/05/18 18:59 11/07/18 21:05 Last 24 Hour Vital Signs Date Time Temp Pulse Resp B/P (MAP) Pulse Ox O2 Delivery O2 Flow Rate FiO2 11/08/18 13:13 50 151/71 11/08/18 12:00 97.6 50 18 130/72 (91) 96 11/08/18 09:31 138/63 11/08/18 09:00 47 138/63 11/08/18 09:00 Room Air 11/08/18 08:00 98.0 47 19 138/63 (88) 95 11/08/18 05:43 54 148/83 11/08/18 04:00 97.2 54 18 148/83 (104) 98 11/08/18 00:00 98.3 50 18 157/79 (105) 97 11/07/18 21:05 55 173/77 11/07/18 21:05 55 173/77 11/07/18 21:00 Room Air 11/07/18 20:00 97.5 55 16 173/77 (109) 97 11/07/18 17:05 175/89 11/07/18 16:00 97.9 60 14 175/89 (117) 98 11/07/18 14:00 57 154/85 11/07/18 12:00 98.5 57 20 154/85 (108) 99 11/07/18 09:00 Room Air 11/07/18 08:38 64 155/86 11/07/18 08:00 97.7 64 20 155/86 (109) 98 11/07/18 05:46 58 140/61 11/07/18 00:00 98.0 90 20 144/99 (114) 96 11/06/18 21:38 106 134/92 11/06/18 21:37 106 134/92 11/06/18 21:00 Room Air 11/06/18 20:00 97.5 106 20 134/92 (106) 99 11/06/18 16:00 98.9 68 17 132/88 (103) 99 11/06/18 15:44 88 11/06/18 14:12 61 136/96 Intake and Output 11/07/18 11/08/18 19:00 07:00 Intake Total 480 ml 260 ml Output Total 400 ml 350 ml Balance 80 ml -90 ml Intake Oral 480 ml 260 ml Output Urine Total 400 ml 350 ml # Voids 3 Labs Test 11/06/18 05:25 Thyroid Stimulating Hormone (TSH) 4.669 uiU/mL (0.358-3.740) Height (Feet): 5 Height (Inches): 6.00 Weight (Pounds): 119 Objective PHYSICAL EXAMINATION: VITAL SIGNS: Have been reviewed. HEENT: PERRLA. NECK: Supple. No lymphadenopathy. CHEST: Clear to auscultation. CARDIOVASCULAR: Regular rate and rhythm. No murmurs or extra sounds. GASTROINTESTINAL: Soft, nontender, and nondistended. No organomegaly. EXTREMITIES: No edema. Moves all four extremities. NEUROLOGIC: Sensory intact to light touch. Reflexes are equal on both sides. Bennie Goss MD Nov 08, 2018 13:58
--- NOTE | 2018-11-08 14:48 | General Progress Note ---
Assessment/Plan Assessment/Plan: 63 y/o man with hx of paroxysmal atrial fibrillation, presented to the hospital with pre-syncope, found to have rapid atrial fibrillation. #Paroxysmal Atrial Fibrillation #Atrial fibrillation with RVR - Cont beta blockers, rate control - Cont NOAC.. - echo did not show any remarkable changes - Apprec cardiology recs #Anemia due to chronic illness #Thrombocytopenia - Hgb and platelet count appeared to be at baseline, seen by Hematology, no new changes recommended Subjective Date patient seen: Nov 08, 2018 Time patient seen: 14:48 ROS Limited/Unobtainable: No Allergies: Coded Allergies: RISPERIDONE (Unverified Allergy, Unknown, 07/04/18) ZIPRASIDONE (Verified Allergy, Unknown, 06/30/18) Uncoded Allergies: RESPERIDONE (Allergy, Unknown, 06/30/18) Subjective Pt continues to be here due to placement. DC held, case management consult placed for SNF placement. No chest pain or dyspnea, no other complaints, no tele events. Objective Last 24 Hour Vital Signs Date Time Temp Pulse Resp B/P (MAP) Pulse Ox O2 Delivery O2 Flow Rate FiO2 11/08/18 13:13 50 151/71 11/08/18 12:00 97.6 50 18 130/72 (91) 96 11/08/18 09:31 138/63 11/08/18 09:00 47 138/63 11/08/18 09:00 Room Air 11/08/18 08:00 98.0 47 19 138/63 (88) 95 11/08/18 05:43 54 148/83 11/08/18 04:00 97.2 54 18 148/83 (104) 98 11/08/18 00:00 98.3 50 18 157/79 (105) 97 11/07/18 21:05 55 173/77 11/07/18 21:05 55 173/77 11/07/18 21:00 Room Air 11/07/18 20:00 97.5 55 16 173/77 (109) 97 11/07/18 17:05 175/89 11/07/18 16:00 97.9 60 14 175/89 (117) 98 Intake and Output 11/07/18 11/08/18 19:00 07:00 Intake Total 480 ml 260 ml Output Total 400 ml 350 ml Balance 80 ml -90 ml Intake Oral 480 ml 260 ml Output Urine Total 400 ml 350 ml # Voids 3 Height (Feet): 5 Height (Inches): 6.00 Weight (Pounds): 119 Objective General: alert, cooperative, no distress, appears stated age Head: normocephalic, without obvious abnormality, atraumatic Eyes: conjunctivae/corneas clear. PERRL, EOM's intact Throat: lips, mucosa, and tongue normal. MMM Neck: supple, symmetrical, trachea midline, and no JVD Lungs: clear to auscultation bilaterally Heart: regular rate and rhythm, S1, S2 normal, no murmur, click, rub or gallop Abdomen: soft, non-tender, non-distended, bowel sounds normal; no masses or organomegaly Extremities: extremities normal, atraumatic, no cyanosis or edema Pulses: 2+ and symmetric Skin: skin color, texture, turgor normal; no rashes or lesions Neurologic: grossly normal, no focal deficits Sharron Sargent MD Nov 08, 2018 14:48
[2018-11-08 16:00] VITALS: BP 139/76
--- NOTE | 2018-11-08 17:36 | NUR ---
CASE MANAGEMENT: REVIEW 11/08/2018 SI: ÁNGEL T 97.2 HR 57 RR 18 B/P 139/76 SATS 95% ON RA NO LABS TODAY IS: CARDIZEM PO Q8H ELIQUIS PO BID LOPRESSOR PO Q12H : MED/SURG UNIT PLAN OF CARE: CONTINUE TO WORK WITH PT
--- NOTE | 2018-11-08 19:49 | NUR ---
HAND-OFF: Report given to Mary Jane JARAMILLO. Patient is stable.
[2018-11-08 20:00] VITALS: BP 174/82
--- NOTE | 2018-11-08 20:05 | NUR ---
NURSE NOTES: PT IN BED. ON RA, NO SOB, NO ACUTE DISTRESS. RAC IV INTACT, PATENT, SALINE LOCK. FALL PRECAUTION FOR UNSTEADY GAITS. BED ALARMS ON. BED IN LOWEST POSITION, LOCKED. CALL LIGHT IN REACH.
[2018-11-09] VITALS: BP 147/80
[2018-11-09 04:00] VITALS: BP 175/91
[2018-11-09] MEDS: HydrALAZINE 50mg tab ORAL PRN ×2 (05:04→16:23)
--- NOTE | 2018-11-09 07:15 | NUR ---
HAND-OFF: Report given to Crystal JARAMILLO.
--- NOTE | 2018-11-09 07:20 | NUR ---
NURSE NOTES: RN received pt in stable condition sleeping in bed. No s/s/ of acute distress or SOB. Bed in low, locked position, call light within reach. Plan of care is to discharge; will f/u with CM. Will continue to monitor.
[2018-11-09 08:00] VITALS: BP 162/89
[2018-11-09] MEDS: dilTIAZem HCl CD 120mg cap ORAL SCH (08:07)
[2018-11-09] MEDS: Lisinopril 10mg tab ORAL SCH ×2 (08:07→17:03)
[2018-11-09] MEDS: Eliquis 5mg tablet ORAL SCH ×2 (08:08→17:03)
--- NOTE | 2018-11-09 08:09 | NUR ---
NURSE NOTES: Pt BP below 60; RN held beta zack. Plt's low; RN held Eliquis. Addendum: 11/09/18 at 0811 by MICHAEL MESSER RN Pulse rate low
--- NOTE | 2018-11-09 08:10 | NUR ---
Pt pulse rate low; RN held beta zack.
--- NOTE | 2018-11-09 08:43 | NUR ---
CASE MANAGEMENT:REVIEW 11/09/18 SI: ANEMIA. AFIB W/RVR 97.9 56 20 162/89 99% ON RA IS: CARDIZEM 120MG PO QD LOPRESSOR 100MG PO Q12 ELIQUIS PO BID LISINOPRIL PO BID : MED/SURG STATUS 4 EAST DCP: FROM [facility] PLAN: UNABLE TO REFER TO SNF D/T INSURANCE PHYSICAL THERAPIST WORKING WITH PATIENT SO HE CAN RETURN TO HIS PRIOR LIVING ARRANGEMENTS
--- NOTE | 2018-11-09 08:54 | NUR ---
DISCHARGE PLANNING PATIENT IS NOT SERVICE CONNECTED PER [facility] PATIENT IS NON FUNDED THUS CANNOT BE REFERRED TO A SNF DISCHARGE PLAN IS FOR PATIENT TO RETURN TO [facility] ONCE STABLE
--- NOTE | 2018-11-09 11:53 | NUR ---
RD ASSESSMENT & RECOMMENDATIONS SEE CARE ACTIVITY FOR COMPLETE ASSESSMENT DAILY ESTIMATED NEEDS: Needs based on cardiac, possible wt loss/ 49kg 30-35 kcals/kg 7612-7858 total kcals 1-1.5 g protein/kg 49-74 g total protein 25-30 mL/kg 3517-6479 total fluid mLs NUTRITION DIAGNOSIS: Increased kcal/prot intake needs R/T wt loss as evidenced by pt w/ possible significant wt loss of 23lbs/17.5% in 4 months, currently w/ variable PO intake. CURRENT DIET:CARDIAC PO DIET RECOMMENDATIONS: Liberalized REGULAR w/ variable PO, texture as tolerated ADDITIONAL RECOMMENDATIONS: * Calibrated bedscale wt or standing wt of accurate CBW * Weekly wt monitoring given possible recent wt loss * Ensure Enlive TID w/ meals * MVI x 1 as supplement * Pt on Remeron JIGMAKER, not on it at this time -> consider re-adding Remeron or psych consult * Re-add Synthroid? ->on Synthroid JIGMAKER, not on it at this time, elev TSH
[2018-11-09 12:00] VITALS: BP 148/84
--- NOTE | 2018-11-09 14:57 | Hematology/Onc Progress Note ---
Assessment/Plan Assessment/Plan ASSESSMENT AND PLAN: # Anemia of chronic disease due to underlying chronic medical issues, multifactorial --> Anemia workup has been reviewed. Ferritin 83, TIBC 242 --> No evidence of hemolysis is noted, peripheral smear has been reviewed. --> Hgb goal >7. Transfuse prn. --> Epogen or iron at this time is not particularly indicated --> Medications have been reviewed # Thrombocytopenia - potential causes multifactorial, evaluate liver and viral etiologies to begin, also could be related to underlying medications patient has received. --> Hep panel and HIV on PRIOR admission was negative --> US abd negative for cirrhosis and hsm --> Peripheral smear ordered to evaluate for blasts/schistocytes, none noted --> abx and other meds have been reviewed --> ok for ppx if plt >50k w/ either heparin or lovenox --> Transfuse if Plt < 20k and fever, or if Plt < 10k without fever # Atelectasis, Optimize pulmonary hygiene/mobilize as tolerated --> on cxr appears stable # Paroxysmal AFib, cardiology recs # Hypertension. # Hypothyroidism. # Lactic acidosis, resolved. # MACARENA, resolved. The timing of this note does not necessarily reflect the time of the patient was seen. Greatly appreciate consultation! Subjective Allergies: Coded Allergies: RISPERIDONE (Unverified Allergy, Unknown, 07/04/18) ZIPRASIDONE (Verified Allergy, Unknown, 06/30/18) Uncoded Allergies: RESPERIDONE (Allergy, Unknown, 06/30/18) Subjective Subjective Subjective 11/06: Pt resting in bed. No acute distress. DC planning. 11/08: Pt asleep in bed. No acute events. 11/09:pt seen in am, resting in bed. Objective Objective Current Medications Medications (Trade) Dose Ordered Sig/Eduardo Route PRN Reason Start Time Stop Time Status Last Admin Dose Admin Apixaban (Eliquis) 5 mg BID ORAL 11/07/18 18:00 12/05/18 08:59 11/08/18 17:37 Diltiazem HCl (Cardizem CD) 120 mg DAILY ORAL 11/09/18 09:00 12/09/18 08:59 11/09/18 08:07 Hydralazine HCl (Apresoline) 50 mg QIDPRN PRN ORAL HTN SBP >155 11/07/18 19:30 7/22/19 19:29 11/09/18 05:04 Lisinopril (Zestril) 10 mg BID ORAL 11/07/18 18:00 12/07/18 17:59 11/09/18 08:07 Metoprolol Tartrate (Lopressor) 100 mg Q12HR ORAL 11/07/18 21:00 12/05/18 18:59 11/08/18 20:29 Last 24 Hour Vital Signs Date Time Temp Pulse Resp B/P (MAP) Pulse Ox O2 Delivery O2 Flow Rate FiO2 11/09/18 12:00 98.0 58 20 148/84 (105) 95 11/09/18 09:00 Room Air 11/09/18 08:08 56 162/89 11/09/18 08:07 56 162/89 11/09/18 08:07 162/89 11/09/18 08:00 97.9 56 20 162/89 (113) 99 11/09/18 05:04 175/91 11/09/18 04:00 97.5 53 20 175/91 (119) 98 11/09/18 00:00 98.5 54 18 147/80 (102) 96 11/08/18 21:02 72 174/82 11/08/18 21:00 Room Air 11/08/18 20:29 72 174/82 11/08/18 20:00 98.3 72 16 174/82 (112) 94 11/08/18 17:37 152/74 11/08/18 16:00 97.2 57 18 139/76 (97) 95 11/08/18 13:13 50 151/71 11/08/18 12:00 97.6 50 18 130/72 (91) 96 11/08/18 09:31 138/63 11/08/18 09:00 47 138/63 11/08/18 09:00 Room Air 11/08/18 08:00 98.0 47 19 138/63 (88) 95 11/08/18 05:43 54 148/83 11/08/18 04:00 97.2 54 18 148/83 (104) 98 11/08/18 00:00 98.3 50 18 157/79 (105) 97 11/07/18 21:05 55 173/77 11/07/18 21:05 55 173/77 6/22/19 21:00 Room Air 11/07/18 20:00 97.5 55 16 173/77 (109) 97 11/07/18 17:05 175/89 11/07/18 16:00 97.9 60 14 175/89 (117) 98 Intake and Output 11/08/18 11/09/18 19:00 07:00 Intake Total 300 ml 200 ml Balance 300 ml 200 ml Intake Oral 200 ml Other 300 ml # Voids 4 Height (Feet): 5 Height (Inches): 6.00 Weight (Pounds): 119 Kristen Cruz [employer] Nov 09, 2018 14:57
--- NOTE | 2018-11-09 15:14 | NUR ---
Social Service Note Patient is conserved through the [employer], assigned worker Daily Sequeira [phone]. Patient is LPS conserved. Communication regarding treatment plan of care should be discussed with Mrs. Sequeira. Mrs. Sqeueira however can only provide consent for mental health related care. Other consents will require court approval or if emergent consent is required MD to document risk, benefits and outcomes then provide consent. Mrs. Sequeira still needs to be notified. Mrs. Sequeira also provided a medi-maría number. Information provided to admitting. WENDY discussed with CM. Will continue to monitor and follow up.
--- NOTE | 2018-11-09 15:36 | NUR ---
*-* INSURANCE *-* ALL CLINICALS AND REVIEWS HAVE BEEN FAXED TO: [facility] / [facility] [place]# THE REF#..... NO COVER CREASER ASSIGNED P- [phone].... F- [phone]...REVIEW/CLINICAL
[2018-11-09 16:00] VITALS: BP 165/88
--- NOTE | 2018-11-09 17:45 | Cardiology Progress Note ---
Assessment/Plan Assessment/Plan 1. History of paroxysmal episodes of atrial fibrillation with rapid ventricular response. 2. Tachycardia. 3. Dementia and/or psychiatric illness with disorientation. 4. Prostatic hypertrophy. 5. Hypothyroidism. 6. Hyertension hr seems regular will swtihc to long acting cardizemcs 180 mg qd exam c/w sinus at this time not on tele bmp in am if needed and k is ok can increase acei tomorrow Subjective Cardiovascular: Denies: chest pain, lightheadedness, palpitations Genitourinary: Denies: burning Objective Last 24 Hour Vital Signs Date Time Temp Pulse Resp B/P (MAP) Pulse Ox O2 Delivery O2 Flow Rate FiO2 11/09/18 17:03 165/88 11/09/18 16:23 165/88 11/09/18 16:00 98.1 52 20 165/88 (113) 96 11/09/18 12:00 98.0 58 20 148/84 (105) 95 11/09/18 09:00 Room Air 11/09/18 08:08 56 162/89 11/09/18 08:07 56 162/89 11/09/18 08:07 162/89 11/09/18 08:00 97.9 56 20 162/89 (113) 99 11/09/18 05:04 175/91 11/09/18 04:00 97.5 53 20 175/91 (119) 98 11/09/18 00:00 98.5 54 18 147/80 (102) 96 11/08/18 21:02 72 174/82 11/08/18 21:00 Room Air 11/08/18 20:29 72 174/82 11/08/18 20:00 98.3 72 16 174/82 (112) 94 General Appearance: no apparent distress, alert Neck: supple Cardiovascular: normal rate, regular rhythm Respiratory/Chest: lungs clear Abdomen: normal bowel sounds, non tender, soft Extremities: no swelling Intake and Output 11/08/18 11/09/18 19:00 07:00 Intake Total 300 ml 200 ml Balance 300 ml 200 ml Intake Oral 200 ml Other 300 ml # Voids 4 Salo Brooke MD Nov 09, 2018 17:45
--- NOTE | 2018-11-09 18:46 | NUR ---
HAND-OFF: Report given to ELLA Trejo.
--- NOTE | 2018-11-09 19:51 | NUR ---
NURSE NOTES: Received pateint awake,alert,verbal,resting in bed comfortably without complaints.
[2018-11-09 20:00] VITALS: BP 112/71
--- NOTE | 2018-11-09 20:58 | General Progress Note ---
Assessment/Plan Assessment/Plan: 63 y/o man with hx of paroxysmal atrial fibrillation, presented to the hospital with pre-syncope, found to have rapid atrial fibrillation. #Paroxysmal Atrial Fibrillation #Atrial fibrillation with RVR - Cont beta blockers, rate control - Cont NOAC.. - echo did not show any remarkable changes - Apprec cardiology recs #Anemia due to chronic illness #Thrombocytopenia - Hgb and platelet count appeared to be at baseline, seen by Hematology, no new changes recommended #unstable gait -cont PT time of note may not reflect time of encounter Subjective Date patient seen: Nov 09, 2018 Allergies: Coded Allergies: RISPERIDONE (Unverified Allergy, Unknown, 07/04/18) ZIPRASIDONE (Verified Allergy, Unknown, 06/30/18) Uncoded Allergies: RESPERIDONE (Allergy, Unknown, 06/30/18) Subjective Pt continues to be here due to placement. DC held, pt with unstable gait, case management consult placed for SNF placement. No chest pain or dyspnea, no other complaints, no tele events. Objective Last 24 Hour Vital Signs Date Time Temp Pulse Resp B/P (MAP) Pulse Ox O2 Delivery O2 Flow Rate FiO2 11/09/18 17:03 165/88 11/09/18 16:23 165/88 11/09/18 16:00 98.1 52 20 165/88 (113) 96 11/09/18 12:00 98.0 58 20 148/84 (105) 95 11/09/18 09:00 Room Air 11/09/18 08:08 56 162/89 11/09/18 08:07 56 162/89 11/09/18 08:07 162/89 11/09/18 08:00 97.9 56 20 162/89 (113) 99 11/09/18 05:04 175/91 11/09/18 04:00 97.5 53 20 175/91 (119) 98 11/09/18 00:00 98.5 54 18 147/80 (102) 96 11/08/18 21:02 72 174/82 11/08/18 21:00 Room Air Intake and Output 11/08/18 11/09/18 19:00 07:00 Intake Total 300 ml 200 ml Balance 300 ml 200 ml Intake Oral 200 ml Other 300 ml # Voids 4 Height (Feet): 5 Height (Inches): 6.00 Weight (Pounds): 119 Objective General: alert, cooperative, no distress, appears stated age Head: normocephalic, without obvious abnormality, atraumatic Eyes: conjunctivae/corneas clear. PERRL, EOM's intact Throat: lips, mucosa, and tongue normal. MMM Neck: supple, symmetrical, trachea midline, and no JVD Lungs: clear to auscultation bilaterally Heart: regular rate and rhythm, S1, S2 normal, no murmur, click, rub or gallop Abdomen: soft, non-tender, non-distended, bowel sounds normal; no masses or organomegaly Extremities: extremities normal, atraumatic, no cyanosis or edema Pulses: 2+ and symmetric Skin: skin color, texture, turgor normal; no rashes or lesions Neurologic: grossly normal, no focal deficits Anny Cole MD Nov 09, 2018 20:58
[2018-11-10] VITALS: BP 114/58
[2018-11-10 04:03] VITALS: BP 119/85
--- NOTE | 2018-11-10 07:10 | NUR ---
HAND-OFF: Report given to Felicitas Mireles RN.
--- NOTE | 2018-11-10 07:18 | NUR ---
NURSE NOTES: RN received pt in stable condition from ELLA Trejo. Pt awake in bed eating breakfast. No s/s of acute distress or SOB. Bed in low, locked position, call light within reach. Will continue plan of care.
[2018-11-10 08:00] VITALS: BP 141/116
[2018-11-10] MEDS: dilTIAZem HCl CD 120mg cap ORAL SCH (08:02)
[2018-11-10] MEDS: Lisinopril 10mg tab ORAL SCH ×2 (08:03→17:20)
[2018-11-10] MEDS: Eliquis 5mg tablet ORAL SCH ×2 (08:03→17:20)
[2018-11-10 12:00] VITALS: BP 130/84
--- NOTE | 2018-11-10 13:28 | NUR ---
*-* INSURANCE *-* UPDATED CLINICALS AND REVIEWS HAVE BEEN FAXED TO: [facility] [place] [facility] [place] THE REF#..... NO ADMISSIONS DIRECTOR ASSIGNED P- [phone].... F- [phone]...REVIEW/CLINICAL
--- NOTE | 2018-11-10 14:35 | NUR ---
NURSE NOTES: Pt refused MRI.
--- NOTE | 2018-11-10 14:59 | NUR ---
CONCERNING MRI... PT REFUSED EXAM, STATES HE FEELS FINE NOW. ELLA LUIS HAS BEEN INFORMED. TJB 14:50
--- NOTE | 2018-11-10 15:13 | NUR ---
NURSE NOTES: Pt conservator visited and asked RN why pt not on psych meds. Usual regime: Olanzapine - 30 mg., Divalproex - 1500 mg, Trazadone, 50 mg. RN sent message to Dr. Rayo, covering for Dr. Sweet, relaying message. Awaiting call back. Addendum: 11/10/18 at 1802 by MICHAEL MESSER RN Message received by Dr. Rayo.
--- NOTE | 2018-11-10 15:15 | NUR ---
CASE MANAGEMENT:REVIEW 11/10/18 SI: ANEMIA. AFIB W/RVR 98.0 55 18 130/84 95% ON RA IS: CARDIZEM 120MG PO QD LOPRESSOR 100MG PO Q12 ELIQUIS PO BID LISINOPRIL PO BID : MED/SURG STATUS 4 EAST DCP: FROM [facility]AYAK PLAN: MRI BRAIN
[2018-11-10 16:00] VITALS: BP 148/80
--- NOTE | 2018-11-10 17:43 | Hematology/Onc Progress Note ---
Assessment/Plan Assessment/Plan ASSESSMENT AND PLAN: # Anemia of chronic disease due to underlying chronic medical issues, multifactorial --> Anemia workup has been reviewed. Ferritin 83, TIBC 242 --> No evidence of hemolysis is noted, peripheral smear has been reviewed. --> Hgb goal >7. Transfuse prn. --> Epogen or iron at this time is not particularly indicated --> Medications have been reviewed # Thrombocytopenia - potential causes multifactorial, evaluate liver and viral etiologies to begin, also could be related to underlying medications patient has received. --> Hep panel and HIV on PRIOR admission was negative --> US abd negative for cirrhosis and hsm --> Peripheral smear ordered to evaluate for blasts/schistocytes, none noted --> abx and other meds have been reviewed --> ok for ppx if plt >50k w/ either heparin or lovenox --> Transfuse if Plt < 20k and fever, or if Plt < 10k without fever # Atelectasis, Optimize pulmonary hygiene/mobilize as tolerated --> on cxr appears stable # Paroxysmal AFib, cardiology recs # Hypertension. # Hypothyroidism. # Lactic acidosis, resolved. # MACARENA, resolved. The timing of this note does not necessarily reflect the time of the patient was seen. Greatly appreciate consultation! Subjective Allergies: Coded Allergies: RISPERIDONE (Unverified Allergy, Unknown, 07/04/18) ZIPRASIDONE (Verified Allergy, Unknown, 06/30/18) Uncoded Allergies: RESPERIDONE (Allergy, Unknown, 06/30/18) Subjective 11/06: Pt resting in bed. No acute distress. DC planning. 11/08: Pt asleep in bed. No acute events. 11/10: Pt stable, no signs of acute distress or SOB. Venous duplex negative. Objective Objective Current Medications Medications (Trade) Dose Ordered Sig/Eduardo Route PRN Reason Start Time Stop Time Status Last Admin Dose Admin Apixaban (Eliquis) 5 mg BID ORAL 11/07/18 18:00 12/05/18 08:59 11/08/18 17:37 Diltiazem HCl (Cardizem CD) 120 mg DAILY ORAL 11/09/18 09:00 12/09/18 08:59 11/10/18 08:02 Hydralazine HCl (Apresoline) 50 mg QIDPRN PRN ORAL HTN SBP >155 11/07/18 19:30 12/07/18 19:29 11/09/18 16:23 Lisinopril (Zestril) 10 mg BID ORAL 11/07/18 18:00 12/07/18 17:59 11/10/18 17:20 Metoprolol Tartrate (Lopressor) 100 mg Q12HR ORAL 11/07/18 21:00 12/05/18 18:59 11/10/18 08:03 Last 24 Hour Vital Signs Date Time Temp Pulse Resp B/P (MAP) Pulse Ox O2 Delivery O2 Flow Rate FiO2 11/10/18 17:20 148/80 11/10/18 16:00 98.2 52 18 148/80 (102) 95 11/10/18 12:00 98.0 55 18 130/84 (99) 95 11/10/18 09:00 Room Air 11/10/18 08:03 141/116 11/10/18 08:03 67 141/116 11/10/18 08:02 67 141/116 11/10/18 08:00 98.4 67 18 141/116 (124) 96 11/10/18 04:03 98.1 55 18 119/85 (96) 96 11/10/18 00:00 97.4 53 18 114/58 (76) 95 11/09/18 21:02 68 112/71 11/09/18 21:00 Room Air 11/09/18 20:00 96.6 68 17 112/71 (85) 90 11/09/18 17:03 165/88 11/09/18 16:23 165/88 11/09/18 16:00 98.1 52 20 165/88 (113) 96 11/09/18 12:00 98.0 58 20 148/84 (105) 95 11/09/18 09:00 Room Air 11/09/18 08:08 56 162/89 11/09/18 08:07 56 162/89 11/09/18 08:07 162/89 11/09/18 08:00 97.9 56 20 162/89 (113) 99 11/09/18 05:04 175/91 11/09/18 04:00 97.5 53 20 175/91 (119) 98 11/09/18 00:00 98.5 54 18 147/80 (102) 96 11/08/18 21:02 72 174/82 11/08/18 21:00 Room Air 11/08/18 20:29 72 174/82 11/08/18 20:00 98.3 72 16 174/82 (112) 94 Intake and Output 11/09/18 11/10/18 19:00 07:00 Intake Total 640 ml Balance 640 ml Intake Oral 640 ml # Voids 4 3 Height (Feet): 5 Height (Inches): 6.00 Weight (Pounds): 119 Objective PHYSICAL EXAMINATION: VITAL SIGNS: Have been reviewed. HEENT: PERRLA. NECK: Supple. No lymphadenopathy. CHEST: Clear to auscultation. CARDIOVASCULAR: Regular rate and rhythm. No murmurs or extra sounds. GASTROINTESTINAL: Soft, nontender, and nondistended. No organomegaly. EXTREMITIES: No edema. Moves all four extremities. NEUROLOGIC: Sensory intact to light touch. Reflexes are equal on both sides. Bennie Goss MD Nov 10, 2018 17:43
--- NOTE | 2018-11-10 18:47 | NUR ---
HAND-OFF: Report given to ELLA Trejo.
--- NOTE | 2018-11-10 19:01 | General Progress Note ---
Assessment/Plan Assessment/Plan: 63 y/o man with hx of paroxysmal atrial fibrillation, presented to the hospital with pre-syncope, found to have rapid atrial fibrillation. #Paroxysmal Atrial Fibrillation #Atrial fibrillation with RVR - Cont beta blockers, rate control - Cont NOAC.. - echo did not show any remarkable changes - Apprec cardiology recs #Anemia due to chronic illness #Thrombocytopenia - Hgb and platelet count appeared to be at baseline, seen by Hematology, no new changes recommended #unstable gait -cont PT time of note may not reflect time of encounter Subjective Date patient seen: Nov 10, 2018 Allergies: Coded Allergies: RISPERIDONE (Unverified Allergy, Unknown, 07/04/18) ZIPRASIDONE (Verified Allergy, Unknown, 06/30/18) Uncoded Allergies: RESPERIDONE (Allergy, Unknown, 06/30/18) Subjective Pt with unstable gait, cont PT daily. No chest pain or dyspnea, no other complaints, no tele events. Objective Last 24 Hour Vital Signs Date Time Temp Pulse Resp B/P (MAP) Pulse Ox O2 Delivery O2 Flow Rate FiO2 11/10/18 17:20 148/80 11/10/18 16:00 98.2 52 18 148/80 (102) 95 11/10/18 12:00 98.0 55 18 130/84 (99) 95 11/10/18 09:00 Room Air 11/10/18 08:03 141/116 11/10/18 08:03 67 141/116 11/10/18 08:02 67 141/116 11/10/18 08:00 98.4 67 18 141/116 (124) 96 11/10/18 04:03 98.1 55 18 119/85 (96) 96 11/10/18 00:00 97.4 53 18 114/58 (76) 95 11/09/18 21:02 68 112/71 11/09/18 21:00 Room Air 11/09/18 20:00 96.6 68 17 112/71 (85) 90 Intake and Output 11/09/18 11/10/18 19:00 07:00 Intake Total 640 ml Balance 640 ml Intake Oral 640 ml # Voids 4 3 Height (Feet): 5 Height (Inches): 6.00 Weight (Pounds): 119 Objective General: alert, cooperative, no distress, appears stated age Head: normocephalic, without obvious abnormality, atraumatic Eyes: conjunctivae/corneas clear. PERRL, EOM's intact Throat: lips, mucosa, and tongue normal. MMM Neck: supple, symmetrical, trachea midline, and no JVD Lungs: clear to auscultation bilaterally Heart: regular rate and rhythm, S1, S2 normal, no murmur, click, rub or gallop Abdomen: soft, non-tender, non-distended, bowel sounds normal; no masses or organomegaly Extremities: extremities normal, atraumatic, no cyanosis or edema Pulses: 2+ and symmetric Skin: skin color, texture, turgor normal; no rashes or lesions Neurologic: grossly normal, no focal deficits Anny Cole MD Nov 10, 2018 19:01
--- NOTE | 2018-11-10 19:22 | Cardiology Progress Note ---
Assessment/Plan Status: stable, progressing Status Narrative Mr Marina is a 63 yo man who was adm w/ AF w RVR, presyncope, anemia- felt due to chronic disease He appears clinically in SR, but is off telemetry. There is no evidence for chf h/h are stable Assessment/Plan Continue current meds, incl apixaban. Follow h/h dc plan to assisted living facility in progress. Subjective ROS Limited/Unobtainable: No Subjective Cardiology for Dr. Brooke No c/o chest pain, dyspnea or palpitations Objective Last 24 Hour Vital Signs Date Time Temp Pulse Resp B/P (MAP) Pulse Ox O2 Delivery O2 Flow Rate FiO2 11/10/18 17:20 148/80 11/10/18 16:00 98.2 52 18 148/80 (102) 95 11/10/18 12:00 98.0 55 18 130/84 (99) 95 11/10/18 09:00 Room Air 11/10/18 08:03 141/116 11/10/18 08:03 67 141/116 11/10/18 08:02 67 141/116 11/10/18 08:00 98.4 67 18 141/116 (124) 96 11/10/18 04:03 98.1 55 18 119/85 (96) 96 11/10/18 00:00 97.4 53 18 114/58 (76) 95 11/09/18 21:02 68 112/71 11/09/18 21:00 Room Air 11/09/18 20:00 96.6 68 17 112/71 (85) 90 General Appearance: WD/WN, no apparent distress, alert Neck: supple, no JVD Rhythm: NSR Cardiovascular: normal rate, regular rhythm, no gallop/murmur Respiratory/Chest: other - occ rhonchi Abdomen: normal bowel sounds, non tender, soft Extremities: no swelling Intake and Output 11/09/18 11/10/18 19:00 07:00 Intake Total 640 ml Balance 640 ml Intake Oral 640 ml # Voids 4 3 Zenia Owens MD Nov 10, 2018 19:22
--- NOTE | 2018-11-10 19:51 | NUR ---
NURSE NOTES: Received patient comfortably sleeping in bed.
[2018-11-10 20:00] VITALS: BP 139/80
[2018-11-11] VITALS: BP 155/80
[2018-11-11 04:00] VITALS: BP 149/79
--- NOTE | 2018-11-11 07:23 | NUR ---
HAND-OFF: Report given to Eduar Maria RN.
--- NOTE | 2018-11-11 07:56 | NUR ---
CASE MANAGEMENT:REVIEW 11/11/18 SI: ANEMIA. AFIB W/RVR 98.2 53 18 149/79 96% ON RA IS: CARDIZEM 120MG PO QD LOPRESSOR 100MG PO Q12 ELIQUIS PO BID LISINOPRIL PO BID : MED/SURG STATUS 4 EAST DCP: FROM NIKKI NAYAK PLAN: MRI BRAIN PENDING
[2018-11-11 08:00] VITALS: BP 115/78
--- NOTE | 2018-11-11 08:01 | NUR ---
NURSE NOTES: received report ELLA Trejo. patient in bed. sleeping. no respiratory distress noted on room air. IV RAC intact. no isolation. bed in the lowest position. alarm on. call light within reach. will provide plan of care.
--- NOTE | 2018-11-11 08:01 | NUR ---
DISCHARGE PLANNING *SPOKE WITH NEGRO AT [facility] WHO STATED THEY WILL NOT ACCEPT PATIENT BACK WITH WALKER OR ANY TYPE OF WALKING AID *SPOKE WITH MIGUEL AT [facility] T: [phone] WHO STATED THERE IS NO MEDICAL NECESSITY TO TRANSFER PATIENT TO [facility] AT THIS TIME AND SINCE PATIENT IS NOT SERVICE CONNECTED [facility] CANNOT HELP WITH DISCHARGE PLACEMENT DUE TO LACK OF BENEFITS *SPOKE WITH [facility]AL CHAIRSIDE ASSISTANT, [facility], T:[phone] WHO STATED HE CANNOT HELP WITH DISCHARGE PLACEMENT *PATIENT WAS REFERRED TO "[facility]". THEY DECLINED TO ACCEPT BECAUSE PATIENT DOES NOT HAVE A REHAB DIAGNOSIS DISCHARGE DISPOSITION IS UNDETERMINED AT THIS TIME
[2018-11-11] MEDS: dilTIAZem HCl CD 120mg cap ORAL SCH (09:47)
[2018-11-11] MEDS: Lisinopril 10mg tab ORAL SCH ×2 (09:47→17:24)
[2018-11-11] MEDS: Eliquis 5mg tablet ORAL SCH ×3 (09:48→17:59)
--- NOTE | 2018-11-11 10:33 | NUR ---
*-* INSURANCE *-* UPDATED CLINICALS AND REVIEWS HAVE BEEN FAXED TO: [facility] [place]# THE REF#..... NO PACKAGING LINE OPERATOR ASSIGNED P- [phone].... F- [phone]...REVIEW/CLINICAL
--- NOTE | 2018-11-11 10:48 | Cardiology Report ---
APPROVED REPORT EKG Measurement Heart [id number] Atrial fibrillation with rapid ventricular response Abnormal ECG
--- NOTE | 2018-11-11 10:57 | NUR ---
NURSE NOTES: patient refused to get MRI yesterday and also today. notified DR. Cole and she will see the patient today.
[2018-11-11 12:00] VITALS: BP 152/93
--- NOTE | 2018-11-11 14:04 | NUR ---
DISCHARGE PLANNING PATIENT CANNOT RETURN TO [facility] USING A WALKER THIS [facility] CALLED PATIENT'S PUBLIC GUARDIAN AND REQUESTED ASSISTANCE WITH PLACEMENT. PUBLIC GUARDIAN SAID SHE WOULD LOOK FOR NEW HOUSING FOR PATIENT AND CALL THIS [facility] BACK PUBLIC GUARDIAN [place] T: [phone] DR HALL HAS BEEN UPDATED Addendum: 11/11/18 at 1432 by STEPHEN FLOWERS LVN LVN RECEIVED CALL FROM [facility] REQUESTING WE RE-START PATIENT'S PSYCH MEDS [facility] LEFT MESSAGE FOR DR HALL
--- NOTE | 2018-11-11 14:10 | Hematology/Onc Progress Note ---
Assessment/Plan Assessment/Plan ASSESSMENT AND PLAN: # Anemia of chronic disease due to underlying chronic medical issues, multifactorial --> Anemia workup has been reviewed. Ferritin 83, TIBC 242 --> No evidence of hemolysis is noted, peripheral smear has been reviewed. --> Hgb goal >7. Transfuse prn. --> Epogen or iron at this time is not particularly indicated --> Medications have been reviewed # Thrombocytopenia - potential causes multifactorial, evaluate liver and viral etiologies to begin, also could be related to underlying medications patient has received. --> Hep panel and HIV on PRIOR admission was negative --> US abd negative for cirrhosis and hsm --> Peripheral smear ordered to evaluate for blasts/schistocytes, none noted --> abx and other meds have been reviewed --> ok for ppx if plt >50k w/ either heparin or lovenox --> Transfuse if Plt < 20k and fever, or if Plt < 10k without fever # Atelectasis, Optimize pulmonary hygiene/mobilize as tolerated --> on cxr appears stable # Paroxysmal AFib, cardiology recs # Hypertension. # Hypothyroidism. # Lactic acidosis, resolved. # MACARENA, resolved. The timing of this note does not necessarily reflect the time of the patient was seen. Greatly appreciate consultation! Subjective Allergies: Coded Allergies: RISPERIDONE (Unverified Allergy, Unknown, 07/04/18) ZIPRASIDONE (Verified Allergy, Unknown, 06/30/18) Uncoded Allergies: RESPERIDONE (Allergy, Unknown, 06/30/18) All Systems: reviewed and negative except above Subjective 11/06: Pt resting in bed. No acute distress. DC planning. 11/08: Pt asleep in bed. No acute events. 11/10: Pt stable, no signs of acute distress or SOB. Venous duplex negative. 11/11: Pt resting in bed. Afebrile, no sob. MRI brain pending. Objective Objective Current Medications Medications (Trade) Dose Ordered Sig/Eduardo Route PRN Reason Start Time Stop Time Status Last Admin Dose Admin Apixaban (Eliquis) 5 mg BID ORAL 11/07/18 18:00 12/05/18 08:59 11/11/18 09:48 Diltiazem HCl (Cardizem CD) 120 mg DAILY ORAL 11/09/18 09:00 12/09/18 08:59 11/11/18 09:47 Hydralazine HCl (Apresoline) 50 mg QIDPRN PRN ORAL HTN SBP >155 11/07/18 19:30 12/07/18 19:29 11/09/18 16:23 Lisinopril (Zestril) 10 mg BID ORAL 11/07/18 18:00 12/07/18 17:59 11/11/18 09:47 Metoprolol Tartrate (Lopressor) 100 mg Q12HR ORAL 11/07/18 21:00 12/05/18 18:59 11/11/18 09:47 Last 24 Hour Vital Signs Date Time Temp Pulse Resp B/P (MAP) Pulse Ox O2 Delivery O2 Flow Rate FiO2 11/11/18 12:00 98.0 68 18 152/93 (112) 100 11/11/18 09:47 92 115/78 11/11/18 09:47 115/78 11/11/18 09:47 92 115/78 11/11/18 09:00 Room Air 11/11/18 08:00 98.0 92 18 115/78 (90) 98 11/11/18 04:00 98.2 53 18 149/79 (102) 96 11/11/18 00:00 98.0 50 18 155/80 (105) 96 11/10/18 20:44 55 139/80 11/10/18 20:09 Room Air 11/10/18 20:00 98.0 55 18 139/80 (99) 95 11/10/18 17:20 148/80 11/10/18 16:00 98.2 52 18 148/80 (102) 95 11/10/18 12:00 98.0 55 18 130/84 (99) 95 11/10/18 09:00 Room Air 11/10/18 08:03 141/116 11/10/18 08:03 67 141/116 11/10/18 08:02 67 141/116 11/10/18 08:00 98.4 67 18 141/116 (124) 96 11/10/18 04:03 98.1 55 18 119/85 (96) 96 11/10/18 00:00 97.4 53 18 114/58 (76) 95 11/09/18 21:02 68 112/71 6/24/19 21:00 Room Air 11/09/18 20:00 96.6 68 17 112/71 (85) 90 11/09/18 17:03 165/88 11/09/18 16:23 165/88 11/09/18 16:00 98.1 52 20 165/88 (113) 96 Intake and Output 11/10/18 11/11/18 19:00 07:00 Intake Total 900 ml Balance 900 ml Intake Oral 900 ml # Voids 3 1 # Bowel Movements 1 Height (Feet): 5 Height (Inches): 6.00 Weight (Pounds): 106 Objective PHYSICAL EXAMINATION: VITAL SIGNS: Have been reviewed. HEENT: PERRLA. NECK: Supple. No lymphadenopathy. CHEST: Clear to auscultation. CARDIOVASCULAR: Regular rate and rhythm. No murmurs or extra sounds. GASTROINTESTINAL: Soft, nontender, and nondistended. No organomegaly. EXTREMITIES: No edema. Moves all four extremities. NEUROLOGIC: Sensory intact to light touch. Reflexes are equal on both sides. Bennie Goss MD Nov 11, 2018 14:10
--- NOTE | 2018-11-11 14:13 | NUR ---
NURSE NOTES: seen by Dr. Cole. patient refused to take MRI brain. d/c MRI
--- NOTE | 2018-11-11 14:17 | Cardiology Progress Note ---
Assessment/Plan Status: stable, unchanged Status Narrative Mr Marina is a 63 yo man who was adm w/ AF w RVR, presyncope, anemia- felt due to chronic disease He appears clinically in SR, (off telemetry) There is no evidence for chf and he has no anginal sx h/h are stable Assessment/Plan No new cardiac recs. Continue current meds for AF, HTN Encourage ambulation. PT dc plan to assisted living facility in progress. Subjective ROS Limited/Unobtainable: No Subjective Cardiology for Dr. Brooke Pt reports being fatigued. No c/o pain or dyspnea Objective Last 24 Hour Vital Signs Date Time Temp Pulse Resp B/P (MAP) Pulse Ox O2 Delivery O2 Flow Rate FiO2 11/11/18 12:00 98.0 68 18 152/93 (112) 100 11/11/18 09:47 92 115/78 11/11/18 09:47 115/78 11/11/18 09:47 92 115/78 11/11/18 09:00 Room Air 11/11/18 08:00 98.0 92 18 115/78 (90) 98 11/11/18 04:00 98.2 53 18 149/79 (102) 96 11/11/18 00:00 98.0 50 18 155/80 (105) 96 11/10/18 20:44 55 139/80 11/10/18 20:09 Room Air 11/10/18 20:00 98.0 55 18 139/80 (99) 95 11/10/18 17:20 148/80 11/10/18 16:00 98.2 52 18 148/80 (102) 95 General Appearance: WD/WN, no apparent distress, alert EENT: PERRL/EOMI Neck: supple, no JVD Rhythm: NSR Cardiovascular: normal rate, no gallop/murmur Respiratory/Chest: lungs clear, normal breath sounds Abdomen: normal bowel sounds, non tender, soft Extremities: no swelling Intake and Output 11/10/18 11/11/18 19:00 07:00 Intake Total 900 ml Balance 900 ml Intake Oral 900 ml # Voids 3 1 # Bowel Movements 1 Zenia Owens MD Nov 11, 2018 14:17
[2018-11-11] MEDS ORDERED: OLANZapine 10mg tab ORAL SCH (14:30)
[2018-11-11] MEDS ORDERED: Depakote ER 500mg tab ORAL SCH (14:30)
--- NOTE | 2018-11-11 15:19 | Consultation ---
History of Present Illness General Date patient seen: Nov 11, 2018 Chief Complaint: Syncope Referring physician: Dr. Sanchez Present Illness HPI Frantz Marina 63 y/o man from an [facility], with a history of high blood pressure, hypothyroid, schizophrenia and hyperlipidemia, who per report by EMS, presented to the ED due to an episode of presyncope. The patient himself has no specific complaints. He denies pain. He denies chest pain or shortness of breath. He denies nausea or vomiting. He denies fever or chills. He has no other complaints. He also staets he thinks he "fell" but doesnt remember. Last night, while on the floor, the pt had rapid atrial fibrillation (paroxysmal), metoprolol and NOAC were restarted. Pt denied any symptoms earlier today Allergies: Coded Allergies: RISPERIDONE (Unverified Allergy, Unknown, 07/04/18) ZIPRASIDONE (Verified Allergy, Unknown, 06/30/18) Uncoded Allergies: RESPERIDONE (Allergy, Unknown, 06/30/18) Medication History Scheduled Apixaban (Eliquis), 5 MG PO BID, (Reported) Atorvastatin Calcium* (Atorvastatin Calcium*), 20 MG ORAL BEDTIME, (Reported) Benztropine Mesylate* (Cogentin*), 0.5 MG PO BID, (Reported) Divalproex Sodium* (Depakote Er*), 500 MG ORAL EVERY 12 HOURS, (Reported) Gabapentin* (Gabapentin*), 100 MG ORAL THREE TIMES A DAY, (Reported) Levothyroxine Sodium (Synthroid), 50 MCG ORAL DAILY, (Reported) Lisinopril (Lisinopril*), 20 MG ORAL DAILY, (Reported) Metoprolol Succinate* (Metoprolol Succinate*), 25 MG ORAL DAILY, (Reported) Mirtazapine* (Mirtazapine*), 30 MG ORAL BEDTIME, (Reported) Olanzapine* (Zyprexa*), 20 MG ORAL DAILY, (Reported) Miscellaneous Medications Diltiazem Hcl (Diltiazem Er), 180 MG PO, (Reported) Patient History History Provided By: Patient, Medical Record Healthcare decision maker Resuscitation status Full Code Advanced Directive on File No Past Medical/Surgical History Past Medical/Surgical History: (1) Parkinsonism (2) Atrial fibrillation (3) Pre-syncope Review of Systems Constitutional: Reports: weakness; Denies: no symptoms, see HPI, chills, sweats , fever, malaise, other Eye: Denies: no symptoms, see HPI, eye pain, blurred vision, tearing, double vision, nose pain, nose congestion, acuity changes, discharge, other ENT: Denies: no symptoms, see HPI, ear pain, ear discharge, nose pain, nose congestion, throat pain, throat swelling, mouth pain, hearing loss, nasal discharge, other Respiratory: Denies: no symptoms, see HPI, cough, orthopnea, shortness of breath, stridor, wheezing, CAMPBELL, sputum, other Cardiovascular: Denies: no symptoms, see HPI, chest pain, edema, palpitations, syncope, PND, other Gastrointestinal: Denies: no symptoms, see HPI, abdominal pain, constipation, diarrhea, nausea, vomiting, melena, hematemesis, other Genitourinary: Denies: no symptoms, see HPI, discharge, dysuria, frequency, hematuria, pain, retention, incontinence, urgency, vag bleed/dc, other Musculoskeletal: Denies: no symptoms, see HPI, back pain, gout, joint pain, joint swelling, muscle pain, muscle stiffness, other Psychiatric: Reports: see HPI Neurological: Reports: see HPI, syncope; Denies: no symptoms, headache, numbness, paresthesia, seizure, tingling, tremors, focal weakness, dizziness, other Endocrine: Denies: no symptoms, see HPI, excessive sweating, flushing, intolerance to temperature, increased thirst, increased urine, unexplained weight loss, other Hematologic/Lymphatic: Denies: no symptoms, see HPI, anemia, blood clots, easy bleeding, easy bruising, swollen glands, diathesis, other Physical Exam General Appearance: WD/WN, alert, confused, thin HEENT: normocephalic, atraumatic, anicteric, mucous membranes moist, EOMI, pharynx normal, supple, no JVD Neck: normal alignment, supple, normal inspection Respiratory/Chest: normal breath sounds, no accessory muscle use Cardiovascular/Chest: arrhythmia Extremities: normal range of motion, non-tender, normal inspection, no calf tenderness, normal capillary refill, non-pitting Skin Exam: normal pigmentation, warm/dry, no diaphoresis Neurologic: alert, responsive, motor weakness - Mild right facial. , disoriented, depressed affect, other Musculoskeletal: normal muscle bulk, no effusion Last 24 Hour Vital Signs Date Time Temp Pulse Resp B/P (MAP) Pulse Ox O2 Delivery O2 Flow Rate FiO2 11/11/18 12:00 98.0 68 18 152/93 (112) 100 11/11/18 09:47 92 115/78 11/11/18 09:47 115/78 11/11/18 09:47 92 115/78 11/11/18 09:00 Room Air 11/11/18 08:00 98.0 92 18 115/78 (90) 98 11/11/18 04:00 98.2 53 18 149/79 (102) 96 11/11/18 00:00 98.0 50 18 155/80 (105) 96 11/10/18 20:44 55 139/80 11/10/18 20:09 Room Air 11/10/18 20:00 98.0 55 18 139/80 (99) 95 11/10/18 17:20 148/80 11/10/18 16:00 98.2 52 18 148/80 (102) 95 Intake and Output 11/10/18 11/11/18 19:00 07:00 Intake Total 900 ml Balance 900 ml Intake Oral 900 ml # Voids 3 1 # Bowel Movements 1 Height (Feet): 5 Height (Inches): 6.00 Weight (Pounds): 106 Medications Current Medications Medications (Trade) Dose Ordered Sig/Eduardo Route PRN Reason Start Time Stop Time Status Last Admin Dose Admin Apixaban (Eliquis) 5 mg BID ORAL 11/07/18 18:00 12/05/18 08:59 11/11/18 09:48 Diltiazem HCl (Cardizem CD) 120 mg DAILY ORAL 11/09/18 09:00 12/09/18 08:59 11/11/18 09:47 Divalproex Sodium (Depakote ER) 1,500 mg DAILY ORAL 11/12/18 09:00 12/12/18 08:59 Divalproex Sodium (Depakote ER) 1,500 mg ONCE ORAL 11/11/18 14:30 11/11/18 15:30 Hydralazine HCl (Apresoline) 50 mg QIDPRN PRN ORAL HTN SBP >155 11/07/18 19:30 12/07/18 19:29 11/09/18 16:23 Lisinopril (Zestril) 10 mg BID ORAL 11/07/18 18:00 12/07/18 17:59 11/11/18 09:47 Metoprolol Tartrate (Lopressor) 100 mg Q12HR ORAL 11/07/18 21:00 12/05/18 18:59 11/11/18 09:47 Olanzapine (ZyPREXA) 30 mg DAILY ORAL 11/12/18 09:00 12/12/18 08:59 Olanzapine (ZyPREXA) 30 mg ONCE ORAL 11/11/18 14:30 11/11/18 15:30 Trazodone HCl (Desyrel) 50 mg BEDTIME ORAL 11/11/18 21:00 12/11/18 20:59 Assessment/Plan Problem List: (1) Anemia ICD Codes: D64.9 - Anemia, unspecified SNOMED: 247681564 (2) Pre-syncope ICD Codes: R55 - Syncope and collapse SNOMED: 980181798 (3) Hyponatremia ICD Codes: E87.1 - Hypo-osmolality and hyponatremia SNOMED: 17741276 (4) Dehydration ICD Codes: E86.0 - Dehydration SNOMED: 55326179 (5) Syncope ICD Codes: R55 - Syncope and collapse SNOMED: 492754883 (6) Parkinsonism ICD Codes: G20 - Parkinson's disease SNOMED: 50285143 (7) HTN (hypertension) ICD Codes: I10 - Essential (primary) hypertension SNOMED: 30033431 (8) Hypothyroid ICD Codes: E03.9 - Hypothyroidism, unspecified SNOMED: 17287593 Assessment/Plan: Re-Check TSH MRI Brain w/o contrast to rule out CVA Control HTN SBP<140 Check HgBA1c Telemetry monitoring TTE Swallow study Q4 hour obs Diagnosis Lucinda I: Patient remains hypoactive, somewhat confused, more likely hypoactive delirium but must rule out CVA secondary to HTN. Bernadette Matthews N.P. Nov 11, 2018 15:19
[2018-11-11 16:00] VITALS: BP 142/74
--- NOTE | 2018-11-11 16:34 | NUR ---
DISCHARGE PLACEMENT UPDATE PER REQUEST OF PUBLIC GUARDIAN PATIENT'S INFORMATION HAS BEEN FAXED TO [facility] F: [phone] ATT: ELLIS SOMEONE WILL COME OUT AND INTERVIEW PATIENT BEFORE MAKING A DECISION
--- NOTE | 2018-11-11 17:56 | NUR ---
NURSE NOTES: patient plt 118 on 11/05/18. patient has order of eliquis 5mg po bid. asked Dr. Cole parameter for hold mediation. received order no hold medication d/t no labs to follow for eliquis. order noted and carried out.
--- NOTE | 2018-11-11 19:04 | NUR ---
HAND-OFF: Report given to ELLA Torres.
[2018-11-11 20:06] VITALS: BP 123/63
--- NOTE | 2018-11-11 20:38 | NUR ---
NURSE NOTES: Received patient asleep, comfortable. Kept clean and dry.
[2018-11-11] MEDS: TraZODone 50mg tab ORAL SCH (21:04)
--- NOTE | 2018-11-11 21:10 | General Progress Note ---
Assessment/Plan Status: stable, unchanged Assessment/Plan: 63 y/o man with hx of paroxysmal atrial fibrillation, presented to the hospital with pre-syncope, found to have rapid atrial fibrillation. #Paroxysmal Atrial Fibrillation #Atrial fibrillation with RVR - Cont beta blockers, rate control - Cont NOAC.. - echo did not show any remarkable changes - Apprec cardiology recs #Anemia due to chronic illness #Thrombocytopenia - Hgb and platelet count appeared to be at baseline, seen by Hematology, no new changes recommended #unstable gait -cont PT time of note may not reflect time of encounter Subjective Allergies: Coded Allergies: RISPERIDONE (Unverified Allergy, Unknown, 07/04/18) ZIPRASIDONE (Verified Allergy, Unknown, 06/30/18) Uncoded Allergies: RESPERIDONE (Allergy, Unknown, 06/30/18) Subjective Pt with unstable gait, cont PT daily. No chest pain or dyspnea, no other complaints, no tele events. Refused MRI, psych meds restarted Objective Last 24 Hour Vital Signs Date Time Temp Pulse Resp B/P (MAP) Pulse Ox O2 Delivery O2 Flow Rate FiO2 11/11/18 21:04 76 123/63 11/11/18 20:07 Room Air 11/11/18 20:06 98.4 76 18 123/63 (83) 100 11/11/18 17:24 142/74 11/11/18 16:00 98.2 52 17 142/74 (96) 100 11/11/18 12:00 98.0 68 18 152/93 (112) 100 11/11/18 09:47 92 115/78 11/11/18 09:47 115/78 11/11/18 09:47 92 115/78 11/11/18 09:00 Room Air 11/11/18 08:00 98.0 92 18 115/78 (90) 98 11/11/18 04:00 98.2 53 18 149/79 (102) 96 11/11/18 00:00 98.0 50 18 155/80 (105) 96 Intake and Output 11/10/18 11/11/18 19:00 07:00 Intake Total 900 ml Balance 900 ml Intake Oral 900 ml # Voids 3 1 # Bowel Movements 1 Height (Feet): 5 Height (Inches): 6.00 Weight (Pounds): 106 Objective General: alert, cooperative, no distress, appears stated age Head: normocephalic, without obvious abnormality, atraumatic Eyes: conjunctivae/corneas clear. PERRL, EOM's intact Throat: lips, mucosa, and tongue normal. MMM Neck: supple, symmetrical, trachea midline, and no JVD Lungs: clear to auscultation bilaterally Heart: regular rate and rhythm, S1, S2 normal, no murmur, click, rub or gallop Abdomen: soft, non-tender, non-distended, bowel sounds normal; no masses or organomegaly Extremities: extremities normal, atraumatic, no cyanosis or edema Pulses: 2+ and symmetric Skin: skin color, texture, turgor normal; no rashes or lesions Neurologic: grossly normal, no focal deficits Anny Cole MD Nov 11, 2018 21:10
[2018-11-12] VITALS: BP 144/78
--- NOTE | 2018-11-12 07:13 | NUR ---
HAND-OFF: Report given to ELLA Poole.
--- NOTE | 2018-11-12 07:17 | NUR ---
NURSE NOTES: received report from ELLA Trejo. patient in bed. sleeping. no respiratory distress noted. brp with walker. dc planning on. bed in the lowest position. call light within reach. alarm on. will provide plan of care.
[2018-11-12 08:00] VITALS: BP 153/91
[2018-11-12] MEDS: Depakote ER 500mg tab ORAL SCH (09:00)
[2018-11-12] MEDS: Lisinopril 10mg tab ORAL SCH ×2 (09:00→17:20)
[2018-11-12] MEDS: Eliquis 5mg tablet ORAL SCH ×2 (09:00→17:20)
[2018-11-12] MEDS: dilTIAZem HCl CD 120mg cap ORAL SCH (09:00)
[2018-11-12] MEDS: OLANZapine 10mg tab ORAL SCH (09:00)
--- NOTE | 2018-11-12 09:02 | Hematology/Onc Progress Note ---
Assessment/Plan Assessment/Plan ASSESSMENT AND PLAN: # Anemia of chronic disease due to underlying chronic medical issues, multifactorial --> Anemia workup has been reviewed. Ferritin 83, TIBC 242 --> No evidence of hemolysis is noted, peripheral smear has been reviewed. --> Hgb goal >7. Transfuse prn. --> Epogen or iron at this time is not particularly indicated --> Medications have been reviewed # Thrombocytopenia - potential causes multifactorial, evaluate liver and viral etiologies to begin, also could be related to underlying medications patient has received. --> Hep panel and HIV on PRIOR admission was negative --> US abd negative for cirrhosis and hsm --> Peripheral smear ordered to evaluate for blasts/schistocytes, none noted --> abx and other meds have been reviewed --> ok for ppx if plt >50k w/ either heparin or lovenox --> Transfuse if Plt < 20k and fever, or if Plt < 10k without fever # Atelectasis, Optimize pulmonary hygiene/mobilize as tolerated --> on cxr appears stable # Paroxysmal AFib, cardiology recs # Hypertension. # Hypothyroidism. # Lactic acidosis, resolved. # MACARENA, resolved. The timing of this note does not necessarily reflect the time of the patient was seen. Greatly appreciate consultation! Subjective ROS Limited/Unobtainable: Yes Allergies: Coded Allergies: RISPERIDONE (Unverified Allergy, Unknown, 07/04/18) ZIPRASIDONE (Verified Allergy, Unknown, 06/30/18) Uncoded Allergies: RESPERIDONE (Allergy, Unknown, 06/30/18) Subjective 11/06: Pt resting in bed. No acute distress. DC planning. 11/08: Pt asleep in bed. No acute events. 11/10: Pt stable, no signs of acute distress or SOB. Venous duplex negative. 11/11: Pt resting in bed. Afebrile, no sob. MRI brain pending. 11/12: PT in bed, sleeping. No respiratory distress noted. DC planning. Objective Objective Current Medications Medications (Trade) Dose Ordered Sig/Eduardo Route PRN Reason Start Time Stop Time Status Last Admin Dose Admin Apixaban (Eliquis) 5 mg BID ORAL 11/07/18 18:00 12/05/18 08:59 11/11/18 17:59 Diltiazem HCl (Cardizem CD) 120 mg DAILY ORAL 11/09/18 09:00 12/09/18 08:59 11/11/18 09:47 Divalproex Sodium (Depakote ER) 1,500 mg DAILY ORAL 11/12/18 09:00 12/12/18 08:59 Hydralazine HCl (Apresoline) 50 mg QIDPRN PRN ORAL HTN SBP >155 11/07/18 19:30 12/07/18 19:29 11/09/18 16:23 Lisinopril (Zestril) 10 mg BID ORAL 11/07/18 18:00 12/07/18 17:59 11/11/18 17:24 Metoprolol Tartrate (Lopressor) 100 mg Q12HR ORAL 11/07/18 21:00 12/05/18 18:59 11/11/18 21:04 Olanzapine (ZyPREXA) 30 mg DAILY ORAL 11/12/18 09:00 12/12/18 08:59 Trazodone HCl (Desyrel) 50 mg BEDTIME ORAL 11/11/18 21:00 12/11/18 20:59 11/11/18 21:04 Last 24 Hour Vital Signs Date Time Temp Pulse Resp B/P (MAP) Pulse Ox O2 Delivery O2 Flow Rate FiO2 11/12/18 00:00 97.8 52 18 144/78 (100) 99 11/11/18 21:04 76 123/63 11/11/18 20:07 Room Air 11/11/18 20:06 98.4 76 18 123/63 (83) 100 11/11/18 17:24 142/74 11/11/18 16:00 98.2 52 17 142/74 (96) 100 11/11/18 12:00 98.0 68 18 152/93 (112) 100 11/11/18 09:47 92 115/78 11/11/18 09:47 115/78 11/11/18 09:47 92 115/78 11/11/18 09:00 Room Air 11/11/18 08:00 98.0 92 18 115/78 (90) 98 11/11/18 04:00 98.2 53 18 149/79 (102) 96 11/11/18 00:00 98.0 50 18 155/80 (105) 96 11/10/18 20:44 55 139/80 6/25/19 20:09 Room Air 11/10/18 20:00 98.0 55 18 139/80 (99) 95 11/10/18 17:20 148/80 11/10/18 16:00 98.2 52 18 148/80 (102) 95 11/10/18 12:00 98.0 55 18 130/84 (99) 95 Intake and Output 11/11/18 11/12/18 18:59 06:59 # Voids 1 2 Height (Feet): 5 Height (Inches): 6.00 Weight (Pounds): 106 Objective PHYSICAL EXAMINATION: VITAL SIGNS: Have been reviewed. HEENT: PERRLA. NECK: Supple. No lymphadenopathy. CHEST: Clear to auscultation. CARDIOVASCULAR: Regular rate and rhythm. No murmurs or extra sounds. GASTROINTESTINAL: Soft, nontender, and nondistended. No organomegaly. EXTREMITIES: No edema. Moves all four extremities. NEUROLOGIC: Sensory intact to light touch. Reflexes are equal on both sides. Bennie Goss MD Nov 12, 2018 09:02
--- NOTE | 2018-11-12 09:17 | NUR ---
NURSE NOTES: patient refused to take morning medications. patient mentioned tiring of taking medications and make him sick. RN explained risks and benefits to the patients but still refused. will continue to monitor and plan of care.
--- NOTE | 2018-11-12 11:25 | NUR ---
P.T Note: Attempted to see pt for P.T session however pt refused to participate despite encouragement. RN notified..Will reattempt this PM.
--- NOTE | 2018-11-12 11:30 | NUR ---
NURSE NOTES: Patient TSH 4.669. he has not eaten well. seen by Dr. Cole and received order of synthroid 50 mcg po daily for hypothyroid, mirtazapine 30 mg qhs for appetite. patient IV site clogged. refused to get a new IV. patient doesnt on IV medications currently. MD aware. order noted and carried out.
--- NOTE | 2018-11-12 11:53 | NUR ---
RD ASSESSMENT & RECOMMENDATIONS SEE CARE ACTIVITY FOR COMPLETE ASSESSMENT DAILY ESTIMATED NEEDS: Needs based on cardiac, possible wt loss/ 49kg 30-35 kcals/kg 6317-2951 total kcals 1-1.5 g protein/kg 49-74 g total protein 25-30 mL/kg 7405-4744 total fluid mLs NUTRITION DIAGNOSIS: Increased kcal/prot intake needs R/T wt loss as evidenced by pt w/ possible significant wt loss of 23lbs/17.5% in 4 months, currently w/ poor and variable PO intake. CURRENT DIET:CARDIAC PO DIET RECOMMENDATIONS: Liberalized REGULAR w/ poor and variable PO intake ADDITIONAL RECOMMENDATIONS: * Calibrated bedscale wt or standing wt of accurate CBW * Weekly wt monitoring given possible recent wt loss * Ensure Enlive TID w/ meals * MVI x 1 as supplement * Monitor lytes, replete as needed . .
[2018-11-12 12:00] VITALS: BP 149/80
--- NOTE | 2018-11-12 13:06 | NUR ---
*-* INSURANCE *-* UPDATED CLINICALS HAVE BEEN FAXED TO: [facility] / [facility] [place] USE THE SS# THE REF#..... NO CAN CAPPER ASSIGNED P- [phone].... F- [phone]...REVIEW/CLINICAL
--- NOTE | 2018-11-12 15:48 | NUR ---
CASE MANAGEMENT:REVIEW 11/12/18 SI: ANEMIA. AFIB W/RVR 98.1 58 18 149/80 96% on ra IS: SYNTHROID PO QD REMERON PO QHS DEPAKOTE PO QD ZYPREXA PO QD TRAZODONE PO QHS CARDIZEM 120MG PO QD LOPRESSOR 100MG PO Q12 ELIQUIS PO BID LISINOPRIL PO BID : MED/SURG STATUS 4 EAST DCP: FROM [facility] PLAN: PATIENT REFUSED MRI
[2018-11-12 16:00] VITALS: BP 136/84
--- NOTE | 2018-11-12 16:01 | NUR ---
DISCHARGE PLANNING SOMEONE FROM [facility] IS SUPPOSE TO COME INTERVIEW PATIENT FOR THEIR FACILITY [facility] T: [phone] IS CURRENTLY OUT OF THE OFFICE UNTIL November CALLED AND SPOKE WITH HESHAM (T; [phone]) WHO IS THE DUTY WORKER FOR UNIT [address] AT [facility] OFFICE HESHAM PROVIDED THIS LEAD [employer] MANAGER WITH PHONE NUMBER TO [facility] T: [phone] THIS LEAD PORTFOLIO MANAGER CALLED [facility] AND LEFT [facility] REQUESTING A RETURN CALL [facility]
--- NOTE | 2018-11-12 16:18 | Cardiology Progress Note ---
Assessment/Plan Status: stable, unchanged Status Narrative Mr Marina is a 63 yo man who was adm w/ AF w RVR, presyncope, anemia- felt due to chronic disease. h/h stable He appears clinically in SR There is no evidence for chf and he has no anginal sx BP is elevated at times He is mainly at bedrest. Assessment/Plan Continue current meds for AF, HTN. Will increase lisinopril if continues w/ SBP over 140// DBP over 90 check orthostatic VS Encourage ambulation. PT dc plan to assisted living facility in progress. Subjective ROS Limited/Unobtainable: No Subjective Cardiology for Dr. Brooke Pt is sedated. offers no c/o Objective Last 24 Hour Vital Signs Date Time Temp Pulse Resp B/P (MAP) Pulse Ox O2 Delivery O2 Flow Rate FiO2 11/12/18 12:00 98.1 58 18 149/80 (103) 96 11/12/18 09:00 Room Air 11/12/18 08:00 98.1 53 18 153/91 (111) 96 11/12/18 00:00 97.8 52 18 144/78 (100) 99 11/11/18 21:04 76 123/63 11/11/18 20:07 Room Air 11/11/18 20:06 98.4 76 18 123/63 (83) 100 11/11/18 17:24 142/74 General Appearance: WD/WN, no apparent distress EENT: PERRL/EOMI Neck: no JVD Rhythm: NSR Cardiovascular: normal rate, regular rhythm, no gallop/murmur Respiratory/Chest: lungs clear Abdomen: non tender, soft, no mass Extremities: no swelling Intake and Output 11/11/18 11/12/18 19:00 07:00 # Voids 1 2 Zenia Owens MD Nov 12, 2018 16:18
--- NOTE | 2018-11-12 16:31 | NUR ---
P.T NOTE : P.T REATTEMPTED HOWEVER PATIENT REFUSED TO PARTICIPATE. RN NOTIFIED/AWARE.
[2018-11-12 18:46] LABS: BASOPHILS % (AUTO) 2.6 % (0.0-2.0); EOSINOPHILS % (AUTO) 3.6 % (0.0-3.0); HEMATOCRIT 41.1 % (42.0-52.0); HEMOGLOBIN 13.8 G/DL (14.2-18.0); LYMPHOCYTES % (AUTO) 35.2 % (20.0-45.0); MEAN CORPUSCULAR VOLUME 86 FL (80-99); NEUTROPHILS % (AUTO) 43.5 % (45.0-75.0); PLATELET COUNT 169 K/UL (150-450); RED BLOOD COUNT 4.76 M/UL (4.70-6.10); RED CELL DISTRIBUTION WIDTH 15.2 % (11.6-14.8); WHITE BLOOD COUNT 6.2 K/UL (4.8-10.8)
[2018-11-12 19:17] LABS: ALANINE AMINOTRANSFERASE 8 U/L (12-78); ALBUMIN 3.2 G/DL (3.4-5.0); ALKALINE PHOSPHATASE 50 U/L (46-116); ANION GAP 6 mmol/L (5-15); ASPARTATE AMINO TRANSFERASE 18 U/L (15-37); BILIRUBIN,TOTAL 0.3 MG/DL (0.2-1.0); BLOOD UREA NITROGEN 33 mg/dL (7-18); CALCIUM 9.6 MG/DL (8.5-10.1); CARBON DIOXIDE 32 MMOL/L (21-32); CHLORIDE 100 MMOL/L (98-107); CREATININE 1.1 MG/DL (0.55-1.30); POTASSIUM 4.2 MMOL/L (3.5-5.1); SODIUM 138 MMOL/L (136-145)
--- NOTE | 2018-11-12 19:22 | NUR ---
HAND-OFF: Report given to ELLA Fernandez.
--- NOTE | 2018-11-12 19:28 | NUR ---
NURSE NOTES: Received report from ELLA Witt. Patient is sleeping on the bed. Patient is breathing unlabored and evenly without signs of discomfort, distress, or SOB. No signs of pain noted at this time. Patient's bed is placed at the lowest level with alarms and brakes on. Side rails are up x 2 for safety measures. Patient's walker at the bedside. Call light is placed within reach. Will continue to monitor and provide care as ordered.
[2018-11-12 20:00] VITALS: BP 128/69
[2018-11-12] MEDS: TraZODone 50mg tab ORAL SCH (20:43)
--- NOTE | 2018-11-12 22:00 | General Progress Note ---
Assessment/Plan Status: stable, unchanged Assessment/Plan: 63 y/o man with hx of paroxysmal atrial fibrillation, presented to the hospital with pre-syncope, found to have rapid atrial fibrillation. #Paroxysmal Atrial Fibrillation #Atrial fibrillation with RVR - Cont beta blockers, rate control - Cont NOAC.. - echo did not show any remarkable changes - Apprec cardiology recs #Anemia due to chronic illness #Thrombocytopenia - Hgb and platelet count appeared to be at baseline, seen by Hematology, no new changes recommended #unstable gait -cont PT time of note may not reflect time of encounter Subjective Date patient seen: Nov 12, 2018 Allergies: Coded Allergies: RISPERIDONE (Unverified Allergy, Unknown, 07/04/18) ZIPRASIDONE (Verified Allergy, Unknown, 06/30/18) Uncoded Allergies: RESPERIDONE (Allergy, Unknown, 06/30/18) All Systems: reviewed and negative except above Subjective Pt with unstable gait, cont PT daily. No chest pain or dyspnea, no other complaints, no tele events. Refused MRI, psych meds restarted Objective Last 24 Hour Vital Signs Date Time Temp Pulse Resp B/P (MAP) Pulse Ox O2 Delivery O2 Flow Rate FiO2 11/12/18 20:43 62 128/69 11/12/18 20:00 98.6 62 18 128/69 (88) 100 11/12/18 17:20 136/84 11/12/18 16:00 98.2 57 18 136/84 (101) 94 11/12/18 12:00 98.1 58 18 149/80 (103) 96 11/12/18 09:00 Room Air 11/12/18 08:00 98.1 53 18 153/91 (111) 96 11/12/18 00:00 97.8 52 18 144/78 (100) 99 Intake and Output 11/11/18 11/12/18 19:00 07:00 # Voids 1 2 Laboratory Tests 11/12/18 18:10: White Blood Count 6.2, Red Blood Count 4.76, Hemoglobin 13.8L, Hematocrit 41.1L , Mean Corpuscular Volume 86, Mean Corpuscular Hemoglobin 28.9, Mean Corpuscular Hemoglobin Concent 33.5, Red Cell Distribution Width 15.2H, Platelet Count 169, Mean Platelet Volume 5.9L, Neutrophils (%) (Auto) 43.5L, Lymphocytes (%) (Auto) 35.2, Monocytes (%) (Auto) 15.0H, Eosinophils (%) (Auto) 3.6H, Basophils (%) (Auto) 2.6H, Sodium Level 138, Potassium Level 4.2, Chloride Level 100, Carbon Dioxide Level 32, Anion Gap 6, Blood Urea Nitrogen 33H, Creatinine 1.1, Estimat Glomerular Filtration Rate > 60, Glucose Level 134H , Calcium Level 9.6, Total Bilirubin 0.3, Aspartate Amino Transf (AST/SGOT) 18, Alanine Aminotransferase (ALT/SGPT) 8L, Alkaline Phosphatase 50, Total Protein 6.5, Albumin 3.2L, Globulin 3.3, Albumin/Globulin Ratio 1.0, Vitamin B12 Level 1165H, Folate 21.1, Thyroid Stimulating Hormone (TSH) 3.261 Height (Feet): 5 Height (Inches): 6.00 Weight (Pounds): 106 Objective General: alert, cooperative, no distress, appears stated age Head: normocephalic, without obvious abnormality, atraumatic Eyes: conjunctivae/corneas clear. PERRL, EOM's intact Throat: lips, mucosa, and tongue normal. MMM Neck: supple, symmetrical, trachea midline, and no JVD Lungs: clear to auscultation bilaterally Heart: regular rate and rhythm, S1, S2 normal, no murmur, click, rub or gallop Abdomen: soft, non-tender, non-distended, bowel sounds normal; no masses or organomegaly Extremities: extremities normal, atraumatic, no cyanosis or edema Pulses: 2+ and symmetric Skin: skin color, texture, turgor normal; no rashes or lesions Neurologic: grossly normal, no focal deficits Anny Cole MD Nov 12, 2018 22:00
--- NOTE | 2018-11-12 23:49 | NUR ---
NURSE NOTES: Patient currently sleeping, self-positioned. Breathing evenly, unlabored. Confirmed call light is within reach. Bed alarm on for safety. Care provided as ordered. Will continue to monitor.
[2018-11-12 23:51] VITALS: BP 125/66
--- NOTE | 2018-11-13 05:28 | NUR ---
NURSE NOTES: Patient refused blood draw for ordered labs per Michelle laboratory personnel.
--- NOTE | 2018-11-13 06:19 | NUR ---
NURSE NOTES: Attempted more than three times to encourage to take the prescribed medication, Levothyroxine. Provided education on what medication does and why he has been prescribed the medication. Patient verbally said "no" multiple times. Patient refused to take the medication.
--- NOTE | 2018-11-13 07:20 | NUR ---
NURSE NOTES: Patient received sleeping in bed. Breathing unlabored on room air. No signs of SOB or pain observed. Reportedly no IV site. Bed locked in lowest position, call light placed within reach. Will continue to monitor.
--- NOTE | 2018-11-13 07:29 | NUR ---
HAND-OFF: Report given to ELLA Carroll. Patient in stable condition, sleeping.
[2018-11-13 08:00] VITALS: BP 104/61
[2018-11-13] MEDS: Lisinopril 10mg tab ORAL SCH ×2 (09:00→18:00)
[2018-11-13] MEDS: OLANZapine 10mg tab ORAL SCH (09:00)
[2018-11-13] MEDS: dilTIAZem HCl CD 120mg cap ORAL SCH (09:00)
[2018-11-13] MEDS: Depakote ER 500mg tab ORAL SCH (09:00)
[2018-11-13] MEDS: Eliquis 5mg tablet ORAL SCH ×2 (09:00→18:00)
--- NOTE | 2018-11-13 09:30 | NUR ---
NURSE NOTES: Patient refused to take morning medications. RN attempted to administer medications 3 times, 30 minutes apart (8:30, 9:00, 9:30). RN explained risks of not taking medications to the patient but he still refused. Will continue plan of care.
[2018-11-13 12:00] VITALS: BP 101/68
--- NOTE | 2018-11-13 13:38 | Hematology/Onc Progress Note ---
Assessment/Plan Assessment/Plan ASSESSMENT AND PLAN: # Anemia of chronic disease due to underlying chronic medical issues, multifactorial --> Anemia workup has been reviewed. Ferritin 83, TIBC 242 --> No evidence of hemolysis is noted, peripheral smear has been reviewed. --> Hgb goal >7. Transfuse prn. --> Epogen or iron at this time is not particularly indicated --> Medications have been reviewed # Thrombocytopenia - potential causes multifactorial, evaluate liver and viral etiologies to begin, also could be related to underlying medications patient has received. --> Currently improved --> Hep panel and HIV on PRIOR admission was negative --> US abd negative for cirrhosis and hsm --> Peripheral smear ordered to evaluate for blasts/schistocytes, none noted --> abx and other meds have been reviewed --> ok for ppx if plt >50k w/ either heparin or lovenox --> Transfuse if Plt < 20k and fever, or if Plt < 10k without fever --> Plt trend: 169k # Atelectasis, Optimize pulmonary hygiene/mobilize as tolerated --> on cxr appears stable # Paroxysmal AFib, cardiology recs # Hypertension. # Hypothyroidism. # Lactic acidosis, resolved. # MACARENA, resolved. The timing of this note does not necessarily reflect the time of the patient was seen. Greatly appreciate consultation! Subjective Allergies: Coded Allergies: RISPERIDONE (Unverified Allergy, Unknown, 07/04/18) ZIPRASIDONE (Verified Allergy, Unknown, 06/30/18) Uncoded Allergies: RESPERIDONE (Allergy, Unknown, 06/30/18) All Systems: reviewed and negative except above Subjective 11/06: Pt resting in bed. No acute distress. DC planning. 11/08: Pt asleep in bed. No acute events. 11/10: Pt stable, no signs of acute distress or SOB. Venous duplex negative. 11/11: Pt resting in bed. Afebrile, no sob. MRI brain pending. 11/12: Pt in bed, sleeping. No respiratory distress noted. DC planning. 11/13: Pt awake and alert, refused morning meds. No signs of SOB or pain observed. Plt count significantly improved overnight. Objective Objective Current Medications Medications (Trade) Dose Ordered Sig/Eduardo Route PRN Reason Start Time Stop Time Status Last Admin Dose Admin Apixaban (Eliquis) 5 mg BID ORAL 11/07/18 18:00 12/05/18 08:59 11/12/18 17:20 Diltiazem HCl (Cardizem CD) 120 mg DAILY ORAL 11/09/18 09:00 12/09/18 08:59 11/11/18 09:47 Divalproex Sodium (Depakote ER) 1,500 mg DAILY ORAL 11/12/18 09:00 12/12/18 08:59 Hydralazine HCl (Apresoline) 50 mg QIDPRN PRN ORAL HTN SBP >155 11/07/18 19:30 12/07/18 19:29 11/09/18 16:23 Levothyroxine Sodium (Synthroid) 50 mcg DAILY@0630 ORAL 11/13/18 06:30 12/13/18 06:29 Lisinopril (Zestril) 10 mg BID ORAL 11/07/18 18:00 12/07/18 17:59 11/12/18 17:20 Metoprolol Tartrate (Lopressor) 100 mg Q12HR ORAL 11/07/18 21:00 12/05/18 18:59 11/12/18 20:43 Mirtazapine (Remeron) 30 mg BEDTIME ORAL 11/12/18 21:00 12/12/18 20:59 11/12/18 20:43 Olanzapine (ZyPREXA) 30 mg DAILY ORAL 11/12/18 09:00 12/12/18 08:59 Trazodone HCl (Desyrel) 50 mg BEDTIME ORAL 11/11/18 21:00 12/11/18 20:59 11/12/18 20:43 Last 24 Hour Vital Signs Date Time Temp Pulse Resp B/P (MAP) Pulse Ox O2 Delivery O2 Flow Rate FiO2 11/13/18 12:00 97.1 71 18 101/68 (79) 95 11/13/18 09:00 Room Air 11/13/18 09:00 66 104/61 11/13/18 09:00 104/61 11/13/18 09:00 66 104/61 11/13/18 08:00 97.6 66 18 104/61 (75) 95 11/12/18 23:51 98.8 60 18 125/66 (85) 100 11/12/18 21:00 Room Air 11/12/18 20:43 62 128/69 11/12/18 20:00 98.6 62 18 128/69 (88) 100 11/12/18 17:20 136/84 11/12/18 16:00 98.2 57 18 136/84 (101) 94 11/12/18 12:00 98.1 58 18 149/80 (103) 96 11/12/18 09:00 Room Air 11/12/18 08:00 98.1 53 18 153/91 (111) 96 11/12/18 00:00 97.8 52 18 144/78 (100) 99 11/11/18 21:04 76 123/63 11/11/18 20:07 Room Air 11/11/18 20:06 98.4 76 18 123/63 (83) 100 11/11/18 17:24 142/74 11/11/18 16:00 98.2 52 17 142/74 (96) 100 Intake and Output 11/12/18 11/13/18 18:59 06:59 # Voids 2 2 Labs Test 11/12/18 18:10 White Blood Count 6.2 K/UL (4.8-10.8) Red Blood Count 4.76 M/UL (4.70-6.10) Hemoglobin 13.8 G/DL (14.2-18.0) Hematocrit 41.1 % (42.0-52.0) Mean Corpuscular Volume 86 FL (80-99) Mean Corpuscular Hemoglobin 28.9 PG (27.0-31.0) Mean Corpuscular Hemoglobin Concent 33.5 G/DL (32.0-36.0) Red Cell Distribution Width 15.2 % (11.6-14.8) Platelet Count 169 K/UL (150-450) Mean Platelet Volume 5.9 FL (6.5-10.1) Neutrophils (%) (Auto) 43.5 % (45.0-75.0) Lymphocytes (%) (Auto) 35.2 % (20.0-45.0) Monocytes (%) (Auto) 15.0 % (1.0-10.0) Eosinophils (%) (Auto) 3.6 % (0.0-3.0) Basophils (%) (Auto) 2.6 % (0.0-2.0) Sodium Level 138 MMOL/L (136-145) Potassium Level 4.2 MMOL/L (3.5-5.1) Chloride Level 100 MMOL/L (98-107) Carbon Dioxide Level 32 MMOL/L (21-32) Anion Gap 6 mmol/L (5-15) Blood Urea Nitrogen 33 mg/dL (7-18) Creatinine 1.1 MG/DL (0.55-1.30) Estimat Glomerular Filtration Rate > 60 mL/min (>60) Glucose Level 134 MG/DL (74-106) Calcium Level 9.6 MG/DL (8.5-10.1) Total Bilirubin 0.3 MG/DL (0.2-1.0) Aspartate Amino Transf (AST/SGOT) 18 U/L (15-37) Alanine Aminotransferase (ALT/SGPT) 8 U/L (12-78) Alkaline Phosphatase 50 U/L (46-116) Total Protein 6.5 G/DL (6.4-8.2) Albumin 3.2 G/DL (3.4-5.0) Globulin 3.3 g/dL Albumin/Globulin Ratio 1.0 (1.0-2.7) Vitamin B12 Level 1165 PG/ML (193-986) Folate 21.1 NG/ML (8.6-58.9) Thyroid Stimulating Hormone (TSH) 3.261 uiU/mL (0.358-3.740) Height (Feet): 5 Height (Inches): 6.00 Weight (Pounds): 106 Objective PHYSICAL EXAMINATION: VITAL SIGNS: Have been reviewed. HEENT: PERRLA. NECK: Supple. No lymphadenopathy. CHEST: Clear to auscultation. CARDIOVASCULAR: Regular rate and rhythm. No murmurs or extra sounds. GASTROINTESTINAL: Soft, nontender, and nondistended. No organomegaly. EXTREMITIES: No edema. Moves all four extremities. NEUROLOGIC: Sensory intact to light touch. Reflexes are equal on both sides. Bennie Goss MD Nov 13, 2018 13:38
[2018-11-13 13:43] LABS: BASOPHILS % (AUTO) 1.9 % (0.0-2.0); EOSINOPHILS % (AUTO) 2.8 % (0.0-3.0); HEMATOCRIT 45.4 % (42.0-52.0); LYMPHOCYTES % (AUTO) 28.9 % (20.0-45.0); MEAN CORPUSCULAR VOLUME 88 FL (80-99); NEUTROPHILS % (AUTO) 53.3 % (45.0-75.0); PLATELET COUNT 185 K/UL (150-450); RED BLOOD COUNT 5.17 M/UL (4.70-6.10); RED CELL DISTRIBUTION WIDTH 16.1 % (11.6-14.8); WHITE BLOOD COUNT 6.4 K/UL (4.8-10.8)
--- NOTE | 2018-11-13 13:45 | NUR ---
CASE MANAGEMENT:REVIEW 11/13/18 SI: ANEMIA. AFIB W/RVR 97.1 71 18 101/68 95% ON RA IS: SYNTHROID PO QD REMERON PO QHS DEPAKOTE PO QD ZYPREXA PO QD TRAZODONE PO QHS CARDIZEM 120MG PO QD LOPRESSOR 100MG PO Q12 ELIQUIS PO BID LISINOPRIL PO BID : MED/SURG STATUS 4 EAST DCP: FROM [facility] PLAN: PATIENT REFUSED MRI
--- NOTE | 2018-11-13 13:48 | NUR ---
DISCHARGE PLANNING PATIENT'S [facility] T: [phone] IS CURRENTLY OUT OF THE OFFICE UNTIL November YESTERDAY SPOKE WITH [facility]ESHAM (T; [phone]) WHO IS THE DUTY WORKER FOR UN[facility] [address] AT [facility] COVERING FOR [facility]. CALLED [facility] TODAY AND [facility] IS OFF TODAY SO MESSAGE WAS LEFT FOR THE SENIOR DEPUTAmy MANN REGARDING DISCHARGE ASSISTANCE FOR THIS PATIENT AWAITING CALL BACK SOMEONE FROM [facility] IS SUPPOSE TO COME INTERVIEW PATIENT FOR THEIR FACILITY
[2018-11-13 13:55] LABS: ANION GAP 6 mmol/L (5-15); BLOOD UREA NITROGEN 37 mg/dL (7-18); CALCIUM 9.5 MG/DL (8.5-10.1); CARBON DIOXIDE 31 MMOL/L (21-32); CHLORIDE 101 MMOL/L (98-107); CREATININE 1.2 MG/DL (0.55-1.30); POTASSIUM 4.3 MMOL/L (3.5-5.1); SODIUM 138 MMOL/L (136-145)
--- NOTE | 2018-11-13 15:07 | NUR ---
*-* INSURANCE *-* UPDATED CLINICALS HAVE BEEN FAXED TO: [facility] / [facility] [place] THE SS# THE REF#..... NO HARB[employer] PILOT ASSIGNED P- [phone].... F- [phone]...REVIEW/CLINICAL
--- NOTE | 2018-11-13 15:16 | General Progress Note ---
Assessment/Plan Status: stable, unchanged Assessment/Plan: 63 y/o man with hx of paroxysmal atrial fibrillation, presented to the hospital with pre-syncope, found to have rapid atrial fibrillation. #Paroxysmal Atrial Fibrillation #Atrial fibrillation with RVR - Cont beta blockers, rate control - Cont NOAC.. - echo did not show any remarkable changes - Apprec cardiology recs #Anemia due to chronic illness #Thrombocytopenia - Hgb and platelet count appeared to be at baseline, seen by Hematology, no new changes recommended #unstable gait -cont PT #Behavorial disorder -psych meds restarted time of note may not reflect time of encounter Subjective Date patient seen: Nov 13, 2018 Allergies: Coded Allergies: RISPERIDONE (Unverified Allergy, Unknown, 07/04/18) ZIPRASIDONE (Verified Allergy, Unknown, 06/30/18) Uncoded Allergies: RESPERIDONE (Allergy, Unknown, 06/30/18) Subjective Pt with unstable gait, cont PT daily. No chest pain or dyspnea, no other complaints, no tele events. Refused MRI, psych meds restarted Objective Last 24 Hour Vital Signs Date Time Temp Pulse Resp B/P (MAP) Pulse Ox O2 Delivery O2 Flow Rate FiO2 11/13/18 12:00 97.1 71 18 101/68 (79) 95 11/13/18 09:00 Room Air 11/13/18 09:00 66 104/61 11/13/18 09:00 104/61 11/13/18 09:00 66 104/61 11/13/18 08:00 97.6 66 18 104/61 (75) 95 11/12/18 23:51 98.8 60 18 125/66 (85) 100 11/12/18 21:00 Room Air 11/12/18 20:43 62 128/69 11/12/18 20:00 98.6 62 18 128/69 (88) 100 11/12/18 17:20 136/84 11/12/18 16:00 98.2 57 18 136/84 (101) 94 Intake and Output 11/12/18 11/13/18 18:59 06:59 # Voids 2 2 Laboratory Tests 11/12/18 18:10: White Blood Count 6.2, Red Blood Count 4.76, Hemoglobin 13.8L, Hematocrit 41.1L , Mean Corpuscular Volume 86, Mean Corpuscular Hemoglobin 28.9, Mean Corpuscular Hemoglobin Concent 33.5, Red Cell Distribution Width 15.2H, Platelet Count 169, Mean Platelet Volume 5.9L, Neutrophils (%) (Auto) 43.5L, Lymphocytes (%) (Auto) 35.2, Monocytes (%) (Auto) 15.0H, Eosinophils (%) (Auto) 3.6H, Basophils (%) (Auto) 2.6H, Sodium Level 138, Potassium Level 4.2, Chloride Level 100, Carbon Dioxide Level 32, Anion Gap 6, Blood Urea Nitrogen 33H, Creatinine 1.1, Estimat Glomerular Filtration Rate > 60, Glucose Level 134H , Calcium Level 9.6, Total Bilirubin 0.3, Aspartate Amino Transf (AST/SGOT) 18, Alanine Aminotransferase (ALT/SGPT) 8L, Alkaline Phosphatase 50, Total Protein 6.5, Albumin 3.2L, Globulin 3.3, Albumin/Globulin Ratio 1.0, Vitamin B12 Level 1165H, Folate 21.1, Thyroid Stimulating Hormone (TSH) 3.261 11/13/18 13:30: White Blood Count 6.4, Red Blood Count 5.17, Hemoglobin 15.0, Hematocrit 45.4, Mean Corpuscular Volume 88, Mean Corpuscular Hemoglobin 28.9, Mean Corpuscular Hemoglobin Concent 33.0, Red Cell Distribution Width 16.1H, Platelet Count 185, Mean Platelet Volume 6.2L, Neutrophils (%) (Auto) 53.3, Lymphocytes (%) (Auto) 28.9, Monocytes (%) (Auto) 13.0H, Eosinophils (%) (Auto) 2.8, Basophils (%) ( Auto) 1.9, Sodium Level 138, Potassium Level 4.3, Chloride Level 101, Carbon Dioxide Level 31, Anion Gap 6, Blood Urea Nitrogen 37H, Creatinine 1.2, Estimat Glomerular Filtration Rate > 60, Glucose Level 173H, Calcium Level 9.5 Height (Feet): 5 Height (Inches): 6.00 Weight (Pounds): 106 Objective General: alert, cooperative, no distress, appears stated age Head: normocephalic, without obvious abnormality, atraumatic Eyes: conjunctivae/corneas clear. PERRL, EOM's intact Throat: lips, mucosa, and tongue normal. MMM Neck: supple, symmetrical, trachea midline, and no JVD Lungs: clear to auscultation bilaterally Heart: regular rate and rhythm, S1, S2 normal, no murmur, click, rub or gallop Abdomen: soft, non-tender, non-distended, bowel sounds normal; no masses or organomegaly Extremities: extremities normal, atraumatic, no cyanosis or edema Pulses: 2+ and symmetric Skin: skin color, texture, turgor normal; no rashes or lesions Neurologic: grossly normal, no focal deficits Anny Cole MD Nov 13, 2018 15:16
[2018-11-13 16:00] VITALS: BP 94/62
--- NOTE | 2018-11-13 17:07 | NUR ---
NURSE NOTES: RN informed PMD of patient's dropping blood pressure levels and overall vitals throughout the day. PMD suggesting fluids if patient is willing for an IV site. RN asked the patient, patient refused IV insertion. RN explained risks of not receiving medications. Patient verbalized understanding and wished to go back to sleep. RN to continue to monitor the patient.
--- NOTE | 2018-11-13 19:10 | NUR ---
HAND-OFF: Report given to Lauren SNYDER.
--- NOTE | 2018-11-13 19:30 | NUR ---
NURSE NOTES: RECEIVED PATIENT LYING IN BED, AWAKE, ALERT/ORIENTED TO PERSON/PLACE, REALITY ORIENTATION PROVIDED DURING ASSESSMENT, DENIES PAIN. NO SIGNS AND SYMPTOMS OF ACUTE CARDIO RESPIRATORY DISTRESS/SHORTNESS OF BREATH, DENIES CHEST PAIN. PO FLUIDS ENCOURAGED AND TOLERATED WELL, CONSUMED APPROXIMATELY 1.5 CUPS CRANBERRY JUICE, NO SIGNS AND SYMPTOMS OF GI BLEED, NO N/V.REFUSED INSERTION OF IV SITE. SIDE RAILS UP X3/BED IN LOWEST POSITION FOR SAFETY, ENCOURAGED PATIENT TO UTILIZE CALL LIGHT FOR ASSISTANCE, VERBALIZED UNDERSTANDING.
[2018-11-13 20:00] VITALS: BP 96/61
[2018-11-13] MEDS: TraZODone 50mg tab ORAL SCH (20:32)
--- NOTE | 2018-11-13 23:25 | Neurology Progress Note ---
Interim History Interim History ROS Limited/Unobtainable: No Complaints: Pre-syncope Events: This visit was performed on November 13, [address] Serjio Sharpe Interim History Refused MRI, improved mentation Objective Physical Exam Last Vital Signs Date Time Temp Pulse Resp B/P (MAP) Pulse Ox O2 Delivery O2 Flow Rate FiO2 11/13/18 21:00 Room Air 11/13/18 20:32 110 99/66 11/13/18 20:00 97.3 18 96 11/05/18 01:00 2.0 11/04/18 21:31 21 Laboratory Tests Test 11/13/18 13:30 White Blood Count 6.4 K/UL (4.8-10.8) Red Blood Count 5.17 M/UL (4.70-6.10) Hemoglobin 15.0 G/DL (14.2-18.0) Hematocrit 45.4 % (42.0-52.0) Mean Corpuscular Volume 88 FL (80-99) Mean Corpuscular Hemoglobin 28.9 PG (27.0-31.0) Mean Corpuscular Hemoglobin Concent 33.0 G/DL (32.0-36.0) Red Cell Distribution Width 16.1 % (11.6-14.8) H Platelet Count 185 K/UL (150-450) Mean Platelet Volume 6.2 FL (6.5-10.1) L Neutrophils (%) (Auto) 53.3 % (45.0-75.0) Lymphocytes (%) (Auto) 28.9 % (20.0-45.0) Monocytes (%) (Auto) 13.0 % (1.0-10.0) H Eosinophils (%) (Auto) 2.8 % (0.0-3.0) Basophils (%) (Auto) 1.9 % (0.0-2.0) Sodium Level 138 MMOL/L (136-145) Potassium Level 4.3 MMOL/L (3.5-5.1) Chloride Level 101 MMOL/L (98-107) Carbon Dioxide Level 31 MMOL/L (21-32) Anion Gap 6 mmol/L (5-15) Blood Urea Nitrogen 37 mg/dL (7-18) H Creatinine 1.2 MG/DL (0.55-1.30) Estimat Glomerular Filtration Rate > 60 mL/min (>60) Glucose Level 173 MG/DL (74-106) H Calcium Level 9.5 MG/DL (8.5-10.1) General: well developed, well nourished Head: normocophalic Neck: no rigidity EENT: benign Neurologic Exam Mental Status: awake, alert, oriented x4, normal cognition, good mathematical skills, normal recent memory, normal remote memory, preserved visuospatial function Speech: normal speech, no dysarthia Language: normal language, no aphasia Cranial Nerve II: fundus normal, visual francis, no papilledema Cranial Nerves III, IV, : PERRLA, EOMI, pupils Cranial Nerve V: normal facial sensations, temporales function normal, masseters function normal, pterygoids function normal Cranial Nerve VII: no facial asymmetry, normal facial expressions Cranial Nerve VIII: normal hearing, no nystagmus Cranial Nerve IX: normal palate elevation, gag response Cranial Nerve X: no voice hoarseness Cranial Nerve XI: SCM symmetric, trapezii function normal Cranial Nerve XII: tongue midline, no tongue atrophy/fasciculations Motor System: normal muscle tone, strength 5/5, no involuntary movement, no muscle wasting Sensory: normal pinprick, normal light touch, normal position sense, normal graphesthesia Coordination: normal finger to nose bilaterally, normal heel to ramsay bilaterally, negative Romberg test Deep Tendon Reflexes: 2+ bicep (L), 2+ bicep (R), 2+ tricep (L), 2+ tricep (R) , 2+ brachioradialis (L), 2+ brachioradialis (R), 2+ knee (L), 2+ knee (R), 2+ ankle (L), 2+ ankle (R) Stance: normal Gait: stable, normal regular, heel + toe gait Impression/Recommendations Problems: (1) Anemia (2) Pre-syncope (3) Hyponatremia (4) Dehydration (5) Syncope (6) Parkinsonism (7) HTN (hypertension) (8) Hypothyroid Status: stable, unchanged Diagnostic Impression Uncooperative with exam but non focal largely on exam with exception of right facial weakness less noticeable today. . Recommendations Continue Neuro OBs Q 4 hrs Help maintain sleep hygiene by minimizing non essential nighttime care and making room dark and quiet at night Reorient patient regularly PT Eval and Amb / OOB QD SBP<140 Na 135-145 Bernadette Matthews N.P. Nov 13, 2018 23:25
--- NOTE | 2018-11-13 23:26 | Neurology Progress Note ---
Interim History Interim History ROS Limited/Unobtainable: No Events: This visit was performed on November 13, [address] Serjio Sharpe Objective Physical Exam Last Vital Signs Date Time Temp Pulse Resp B/P (MAP) Pulse Ox O2 Delivery O2 Flow Rate FiO2 11/13/18 21:00 Room Air 11/13/18 20:32 110 99/66 11/13/18 20:00 97.3 18 96 11/05/18 01:00 2.0 11/04/18 21:31 21 Laboratory Tests Test 11/13/18 13:30 White Blood Count 6.4 K/UL (4.8-10.8) Red Blood Count 5.17 M/UL (4.70-6.10) Hemoglobin 15.0 G/DL (14.2-18.0) Hematocrit 45.4 % (42.0-52.0) Mean Corpuscular Volume 88 FL (80-99) Mean Corpuscular Hemoglobin 28.9 PG (27.0-31.0) Mean Corpuscular Hemoglobin Concent 33.0 G/DL (32.0-36.0) Red Cell Distribution Width 16.1 % (11.6-14.8) H Platelet Count 185 K/UL (150-450) Mean Platelet Volume 6.2 FL (6.5-10.1) L Neutrophils (%) (Auto) 53.3 % (45.0-75.0) Lymphocytes (%) (Auto) 28.9 % (20.0-45.0) Monocytes (%) (Auto) 13.0 % (1.0-10.0) H Eosinophils (%) (Auto) 2.8 % (0.0-3.0) Basophils (%) (Auto) 1.9 % (0.0-2.0) Sodium Level 138 MMOL/L (136-145) Potassium Level 4.3 MMOL/L (3.5-5.1) Chloride Level 101 MMOL/L (98-107) Carbon Dioxide Level 31 MMOL/L (21-32) Anion Gap 6 mmol/L (5-15) Blood Urea Nitrogen 37 mg/dL (7-18) H Creatinine 1.2 MG/DL (0.55-1.30) Estimat Glomerular Filtration Rate > 60 mL/min (>60) Glucose Level 173 MG/DL (74-106) H Calcium Level 9.5 MG/DL (8.5-10.1) Impression/Recommendations Problems: (1) Anemia (2) Pre-syncope (3) Hyponatremia (4) Dehydration (5) Syncope (6) Parkinsonism (7) HTN (hypertension) (8) Hypothyroid Status: stable, unchanged Bernadette Matthews N.P. Nov 13, 2018 23:25
[2018-11-14] VITALS (7 sets, daily range): BP systolic 93–147; BP diastolic 57–89
--- NOTE | 2018-11-14 07:32 | NUR ---
NURSE NOTES: Patient received resting in bed, breathing on room air. Patient refusing morning medications, refusing to drink or eat. Patient expresses to be left alone to sleep. No signs of pain or respiratory distress observed. Skin warm to touch. Bed locked in lowest position, call light placed within reach. Will continue to monitor.
[2018-11-14] MEDS: Depakote ER 500mg tab ORAL SCH (09:00)
[2018-11-14] MEDS: Eliquis 5mg tablet ORAL SCH ×2 (09:00→18:00)
[2018-11-14] MEDS: dilTIAZem HCl CD 120mg cap ORAL SCH (09:00)
[2018-11-14] MEDS: OLANZapine 10mg tab ORAL SCH (09:00)
[2018-11-14] MEDS: Lisinopril 10mg tab ORAL SCH ×2 (09:00→18:00)
--- NOTE | 2018-11-14 09:48 | Cardiology Progress Note ---
Assessment/Plan Problem List: (1) Atrial fibrillation (2) Anemia (3) Hypothyroid (4) HTN (hypertension) Status: stable, not improved, unchanged Status Narrative Mr Marina is a 63 yo man who was adm w/ AF w RVR, presyncope, anemia- felt due to chronic disease. h/h stable He appears w/ irregular pulse- possible recurrent Af BP is elevated. He is agitated, oriented to person, hospital ( does not know name), and does not know date, day. Refusing meds, tests Assessment/Plan Would consider psychiatry evaluation - ? capacity to make decisions. He refuses EKG Continue to attempt medical therapy, including eliquis, b blockers, ca channel blockers for AF Subjective ROS Limited/Unobtainable: No Subjective Cardiology for Dr. Brooke Pt alert/ upset and refusing meds, blood draws and tests Objective Last 24 Hour Vital Signs Date Time Temp Pulse Resp B/P (MAP) Pulse Ox O2 Delivery O2 Flow Rate FiO2 11/14/18 09:00 81 147/79 11/14/18 09:00 147/79 11/14/18 09:00 81 147/79 11/14/18 08:00 97.9 81 19 147/79 (101) 96 11/14/18 04:00 97.3 62 18 109/89 (96) 95 11/14/18 00:00 97.0 108 18 93/57 (69) 97 11/13/18 21:00 Room Air 11/13/18 20:32 110 99/66 11/13/18 20:00 97.3 110 18 96/61 (73) 96 11/13/18 18:00 94/62 11/13/18 16:00 97.7 112 18 94/62 (73) 98 11/13/18 12:00 97.1 71 18 101/68 (79) 95 General Appearance: WD/WN, no apparent distress, alert, agitated EENT: PERRL/EOMI Neck: non-tender, no JVD Cardiovascular: no gallop/murmur, irregularly irregular Respiratory/Chest: lungs clear, other - limited cooperation w/ exam Abdomen: non tender, soft Extremities: no swelling Intake and Output 11/13/18 11/14/18 19:00 07:00 Intake Total 480 ml 540 ml Balance 480 ml 540 ml Intake Oral 480 ml 540 ml # Voids 2 2 Laboratory Tests Test 11/13/18 13:30 White Blood Count 6.4 K/UL (4.8-10.8) Red Blood Count 5.17 M/UL (4.70-6.10) Hemoglobin 15.0 G/DL (14.2-18.0) Hematocrit 45.4 % (42.0-52.0) Mean Corpuscular Volume 88 FL (80-99) Mean Corpuscular Hemoglobin 28.9 PG (27.0-31.0) Mean Corpuscular Hemoglobin Concent 33.0 G/DL (32.0-36.0) Red Cell Distribution Width 16.1 % (11.6-14.8) H Platelet Count 185 K/UL (150-450) Mean Platelet Volume 6.2 FL (6.5-10.1) L Neutrophils (%) (Auto) 53.3 % (45.0-75.0) Lymphocytes (%) (Auto) 28.9 % (20.0-45.0) Monocytes (%) (Auto) 13.0 % (1.0-10.0) H Eosinophils (%) (Auto) 2.8 % (0.0-3.0) Basophils (%) (Auto) 1.9 % (0.0-2.0) Sodium Level 138 MMOL/L (136-145) Potassium Level 4.3 MMOL/L (3.5-5.1) Chloride Level 101 MMOL/L (98-107) Carbon Dioxide Level 31 MMOL/L (21-32) Anion Gap 6 mmol/L (5-15) Blood Urea Nitrogen 37 mg/dL (7-18) H Creatinine 1.2 MG/DL (0.55-1.30) Estimat Glomerular Filtration Rate > 60 mL/min (>60) Glucose Level 173 MG/DL (74-106) H Calcium Level 9.5 MG/DL (8.5-10.1) Zenia Owens MD Nov 14, 2018 09:48
--- NOTE | 2018-11-14 12:14 | NUR ---
PT NOTE: Pt refused to participate in PT session. States he is walking fine and does not want to participate in performing stretches or exercises. Pt educated on the importance of performing therapeutic exercises for ease of functional ADLs. Pt continued to refuse. Left nurse call light within easy reach. Notified nurse.
--- NOTE | 2018-11-14 15:11 | General Progress Note ---
Assessment/Plan Status: stable, not improved, unchanged Assessment/Plan: 63 y/o man with hx of paroxysmal atrial fibrillation, presented to the hospital with pre-syncope, found to have rapid atrial fibrillation. #Paroxysmal Atrial Fibrillation #Atrial fibrillation with RVR - Cont beta blockers, rate control - Cont NOAC.. - echo did not show any remarkable changes - Apprec cardiology recs #Anemia due to chronic illness #Thrombocytopenia - Hgb and platelet count appeared to be at baseline, seen by Hematology, no new changes recommended #unstable gait -cont PT #Behavorial disorder -psych meds restarted -psychiatry consulted time of note may not reflect time of encounter Subjective Date patient seen: Nov 14, 2018 Allergies: Coded Allergies: RISPERIDONE (Unverified Allergy, Unknown, 07/04/18) ZIPRASIDONE (Verified Allergy, Unknown, 06/30/18) Uncoded Allergies: RESPERIDONE (Allergy, Unknown, 06/30/18) Subjective Pt with unstable gait, cont PT daily. No chest pain or dyspnea, no other complaints, no tele events. Refused MRI, psych meds restarted, more sleepy, psych consulted, noted to have low BP, refused IV line insertion, encouraged PO intake Objective Last 24 Hour Vital Signs Date Time Temp Pulse Resp B/P (MAP) Pulse Ox O2 Delivery O2 Flow Rate FiO2 11/14/18 12:00 98.5 69 18 101/69 (80) 96 11/14/18 09:00 Room Air 11/14/18 09:00 81 147/79 11/14/18 09:00 147/79 11/14/18 09:00 81 147/79 11/14/18 08:05 97.9 63 19 97/68 (78) 85 11/14/18 08:00 97.9 81 19 147/79 (101) 96 11/14/18 04:00 97.3 62 18 109/89 (96) 95 11/14/18 00:00 97.0 108 18 93/57 (69) 97 11/13/18 21:00 Room Air 11/13/18 20:32 110 99/66 11/13/18 20:00 97.3 110 18 96/61 (73) 96 11/13/18 18:00 94/62 11/13/18 16:00 97.7 112 18 94/62 (73) 98 Intake and Output 11/13/18 11/14/18 18:59 06:59 Intake Total 480 ml 540 ml Balance 480 ml 540 ml Intake Oral 480 ml 540 ml # Voids 2 2 Height (Feet): 5 Height (Inches): 6.00 Weight (Pounds): 106 Objective General: alert, cooperative, no distress, appears stated age Head: normocephalic, without obvious abnormality, atraumatic Eyes: conjunctivae/corneas clear. PERRL, EOM's intact Throat: lips, mucosa, and tongue normal. MMM Neck: supple, symmetrical, trachea midline, and no JVD Lungs: clear to auscultation bilaterally Heart: regular rate and rhythm, S1, S2 normal, no murmur, click, rub or gallop Abdomen: soft, non-tender, non-distended, bowel sounds normal; no masses or organomegaly Extremities: extremities normal, atraumatic, no cyanosis or edema Pulses: 2+ and symmetric Skin: skin color, texture, turgor normal; no rashes or lesions Neurologic: grossly normal, no focal deficits Anny Cole MD Nov 14, 2018 15:11
--- NOTE | 2018-11-14 16:13 | NUR ---
CASE MANAGEMENT:REVIEW 11/14/18 SI: ANEMIA. AFIB W/RVR T 98.5 HR 69 RR 18 B/P 101/69 SATS 96% ON RA NO LABS TODAY IS: SYNTHROID PO QD REMERON PO QHS DEPAKOTE PO QD ZYPREXA PO QD TRAZODONE PO QHS CARDIZEM 120MG PO QD LOPRESSOR 100MG PO Q12H ELIQUIS PO BID LISINOPRIL PO BID : MED/SURG STATUS 4 EAST DCP: FROM NIKKI NAYAK
--- NOTE | 2018-11-14 19:30 | NUR ---
NURSE NOTES: RECEIVED PATIENT LYING IN BED, AWAKE, ALERT/ORIENTED TO PERSON/PLACE, REALITY ORIENTATION PROVIDED DURING ASSESSMENT, DENIES PAIN, NO SIGNS AND SYMPTOMS OF ACUTE CARDIO RESPIRATORY DISTRESS/SHORTNESS OF BREATH, DENIES CHEST PAIN, NO EDEMA NOTED. ABDOMEN SOFT/NON DISTENDED/BOWEL SOUNDS AUDIBLE, NO SIGNS AND SYMPTOMS OF GI BLEEDING, NO N/V/D. NO IV ACCESS, MD AWARE, UNABLE TO ATTEMPT PLACEMENT SECONDARY TO PATIENT REFUSAL. PO FLUIDS OFFERED AND TOLERATED WELL, CONSUMED APPROXIMATELY 1 CUP OF APPLE JUICE. SIDE RAILS UP X3/BED IN LOWEST POSITION FOR SAFETY, ENCOURAGED PATIENT TO UTILIZE CALL LIGHT FOR ASSISTANCE, VERBALIZED UNDERSTANDING. VSS, AFEBRILE. NAD.
--- NOTE | 2018-11-14 19:34 | NUR ---
HAND-OFF: Report given to Lauren SNYDER.
[2018-11-14] MEDS: TraZODone 50mg tab ORAL SCH (21:00)
--- NOTE | 2018-11-14 21:00 | NUR ---
NURSE NOTES: NON COMPLIANT WITH PLAN OF CARE, MD AWARE-CONTINUE TO REFUSE MEDICATION/NUTRITION-
--- NOTE | 2018-11-14 21:18 | Neurology Progress Note ---
Interim History Interim History ROS Limited/Unobtainable: Yes Events: This visit was performed on November 14, [address] Serjio Sharpe Interim History Slightly hypertensive today. - MS unchanged Review of Systems All Systems: reviewed and negative except above Objective Physical Exam Last Vital Signs Date Time Temp Pulse Resp B/P (MAP) Pulse Ox O2 Delivery O2 Flow Rate FiO2 11/14/18 21:00 90 130/81 11/14/18 20:00 98.1 18 97 11/14/18 09:00 Room Air General: well developed, well nourished, no acute distress Head: normocophalic, atraumatic Neck: no rigidity EENT: benign Neurologic Exam Mental Status: awake, alert, oriented x4, normal cognition, good mathematical skills, normal recent memory, normal remote memory, preserved visuospatial function Speech: normal speech, no dysarthia Language: normal language, no aphasia Cranial Nerve II: fundus normal, visual francis, no papilledema Cranial Nerves III, IV, : PERRLA, EOMI, pupils Cranial Nerve V: normal facial sensations, temporales function normal, masseters function normal, pterygoids function normal Cranial Nerve VII: no facial asymmetry, normal facial expressions Cranial Nerve VIII: normal hearing, no nystagmus Cranial Nerve IX: normal palate elevation, gag response Cranial Nerve X: no voice hoarseness Cranial Nerve XI: SCM symmetric, trapezii function normal Cranial Nerve XII: tongue midline, no tongue atrophy/fasciculations Motor System: normal muscle tone, strength 5/5, no involuntary movement, no muscle wasting Sensory: normal pinprick, normal light touch, normal position sense, normal graphesthesia Coordination: normal finger to nose bilaterally, normal heel to ramsay bilaterally, negative Romberg test Deep Tendon Reflexes: 2+ bicep (L), 2+ bicep (R), 2+ tricep (L), 2+ tricep (R) , 2+ brachioradialis (L), 2+ brachioradialis (R), 2+ knee (L), 2+ knee (R), 2+ ankle (L), 2+ ankle (R) Stance: normal Gait: stable, normal regular, heel + toe gait Impression/Recommendations Problems: (1) Anemia (2) Pre-syncope (3) Hyponatremia (4) Dehydration (5) Syncope (6) Parkinsonism (7) HTN (hypertension) (8) Hypothyroid Assessment & Plan: TSH improving Status: stable, not improved, unchanged Recommendations Continue Neuro OBs Q 4 hrs Help maintain sleep hygiene by minimizing non essential nighttime care and making room dark and quiet at night Reorient patient regularly PT Eval and Amb / OOB QD SBP<140 Na 135-145 Bernadette Matthews N.P. Nov 14, 2018 21:18
[2018-11-15] VITALS: BP 130/64
[2018-11-15 04:00] VITALS: BP 133/84
[2018-11-15 06:20] LABS: EOSINOPHILS % (AUTO) 2.8 % (0.0-3.0); HEMATOCRIT 42.3 % (42.0-52.0); HEMOGLOBIN 14.1 G/DL (14.2-18.0); LYMPHOCYTES % (AUTO) 36.1 % (20.0-45.0); MEAN CORPUSCULAR VOLUME 88 FL (80-99); MONOCYTES % (AUTO) 13.9 % (1.0-10.0); NEUTROPHILS % (AUTO) 45.2 % (45.0-75.0); PLATELET COUNT 187 K/UL (150-450); RED BLOOD COUNT 4.82 M/UL (4.70-6.10); RED CELL DISTRIBUTION WIDTH 16.1 % (11.6-14.8); WHITE BLOOD COUNT 6.3 K/UL (4.8-10.8)
--- NOTE | 2018-11-15 06:26 | NUR ---
NURSE NOTES: RESTED WELL, NO SIGNIFICANT CHANGE OF CONDITION NOTED THROUGHOUT THE NIGHT. SAFETY MAINTAINED. NAD.
[2018-11-15 08:00] VITALS: BP 153/105
--- NOTE | 2018-11-15 08:30 | NUR ---
NURSE NOTES: RECEIVED PATIENT LYING IN BED, A/A/OX4. ABLE TO MAKE THINGS KNOWN. DENIES PAIN/ DISCOMFORT. NO S/S OF ACUTE CARDIO-RESPIRATORY DISTRESS/SHORTNESS OF BREATH, DENIES CHEST PAIN, NO EDEMA NOTED. ABDOMEN SOFT/NON DISTENDED/BOWEL SOUNDS AUDIBLE. NO S/S OF GI BLEEDING. NO IV ACCESS NOTED, MD AWARE, PATIENT REMAINED REFUSED FOR IV REINSERTION. PO FLUIDS OFFERED AND TOLERATED WELL. SIDE RAILS UP X3/BED IN LOWEST POSITION FOR SAFETY, ENCOURAGED PATIENT TO UTILIZE CALL LIGHT FOR ASSISTANCE, VERBALIZED UNDERSTANDING. VSS, AFEBRILE. INSTRUCTED TO CALL FOR ASSISTANCE WHEN AMBULATING TO THE BATHROOM. WILL CONT TO MONITOR.
[2018-11-15] MEDS: OLANZapine 10mg tab ORAL SCH (09:00)
[2018-11-15] MEDS: Eliquis 5mg tablet ORAL SCH ×2 (09:23→17:29)
[2018-11-15] MEDS: dilTIAZem HCl CD 120mg cap ORAL SCH (09:24)
[2018-11-15] MEDS: Lisinopril 10mg tab ORAL SCH ×2 (09:24→17:29)
[2018-11-15] MEDS: Depakote ER 500mg tab ORAL SCH (09:24)
--- NOTE | 2018-11-15 10:41 | Cardiology Progress Note ---
Assessment/Plan Problem List: (1) Atrial fibrillation (2) Anemia (3) Hypothyroid (4) HTN (hypertension) Status: stable, unchanged Status Narrative Mr Marina is a 63 yo man who was adm w/ AF w RVR, presyncope, anemia- felt due to chronic disease. h/h stable His pulse is regular today, c/w SR BP is elevated. Assessment/Plan Continue apixaban, metoprolol and diltiazem for PAF. Increase lisinopril for better BP control. Psychiatry evaluation, discharge plan pending. Subjective ROS Limited/Unobtainable: No Subjective Cardiology for Dr. Brooke Pt appears calmer today. Took am meds, with exception of Zyprexa Objective Last 24 Hour Vital Signs Date Time Temp Pulse Resp B/P (MAP) Pulse Ox O2 Delivery O2 Flow Rate FiO2 11/15/18 09:24 67 153/105 11/15/18 09:24 153/105 11/15/18 09:23 67 153/105 11/15/18 09:00 Room Air 11/15/18 08:00 97.6 67 18 153/105 (121) 96 11/15/18 04:00 97.1 94 18 133/84 (100) 97 11/15/18 00:00 97.9 94 18 130/64 (86) 96 11/14/18 21:00 Room Air 11/14/18 21:00 90 130/81 11/14/18 20:00 98.1 90 18 130/81 (97) 97 11/14/18 16:00 97.9 70 18 101/70 (80) 96 11/14/18 12:00 98.5 69 18 101/69 (80) 96 General Appearance: WD/WN, no apparent distress, alert EENT: PERRL/EOMI Neck: no JVD Rhythm: NSR Cardiovascular: normal rate, regular rhythm, no gallop/murmur Respiratory/Chest: lungs clear Abdomen: non tender, soft Extremities: no swelling Intake and Output 11/14/18 11/15/18 19:00 07:00 Intake Total 30 ml 240 ml Balance 30 ml 240 ml Intake Oral 30 ml 240 ml # Voids 2 Laboratory Tests Test 11/15/18 06:00 White Blood Count 6.3 K/UL (4.8-10.8) Red Blood Count 4.82 M/UL (4.70-6.10) Hemoglobin 14.1 G/DL (14.2-18.0) L Hematocrit 42.3 % (42.0-52.0) Mean Corpuscular Volume 88 FL (80-99) Mean Corpuscular Hemoglobin 29.3 PG (27.0-31.0) Mean Corpuscular Hemoglobin Concent 33.4 G/DL (32.0-36.0) Red Cell Distribution Width 16.1 % (11.6-14.8) H Platelet Count 187 K/UL (150-450) Mean Platelet Volume 6.1 FL (6.5-10.1) L Neutrophils (%) (Auto) 45.2 % (45.0-75.0) Lymphocytes (%) (Auto) 36.1 % (20.0-45.0) Monocytes (%) (Auto) 13.9 % (1.0-10.0) H Eosinophils (%) (Auto) 2.8 % (0.0-3.0) Basophils (%) (Auto) 2.0 % (0.0-2.0) Zenia Owens MD Nov 15, 2018 10:41
[2018-11-15 12:00] VITALS: BP 141/56
--- NOTE | 2018-11-15 13:22 | NUR ---
NURSE NOTES: Dr. Cole notified patient still refusing to eat. will continue to encourage PO intake.
--- NOTE | 2018-11-15 14:54 | General Progress Note ---
Assessment/Plan Status: stable, unchanged Assessment/Plan: 63 y/o man with hx of paroxysmal atrial fibrillation, presented to the hospital with pre-syncope, found to have rapid atrial fibrillation. #Paroxysmal Atrial Fibrillation #Atrial fibrillation with RVR - Cont beta blockers, rate control - Cont NOAC.. - echo did not show any remarkable changes - Apprec cardiology recs #Anemia due to chronic illness #Thrombocytopenia - Hgb and platelet count appeared to be at baseline, seen by Hematology, no new changes recommended #unstable gait -cont PT #Behavorial disorder -psych meds restarted -psychiatry consulted time of note may not reflect time of encounter Subjective Date patient seen: Nov 15, 2018 Allergies: Coded Allergies: RISPERIDONE (Unverified Allergy, Unknown, 07/04/18) ZIPRASIDONE (Verified Allergy, Unknown, 06/30/18) Uncoded Allergies: RESPERIDONE (Allergy, Unknown, 06/30/18) Subjective Pt with unstable gait, cont PT daily. No chest pain or dyspnea, no other complaints, no tele events. Refused MRI, appetite mildly improved today, took meds this am, BP improved. Objective Last 24 Hour Vital Signs Date Time Temp Pulse Resp B/P (MAP) Pulse Ox O2 Delivery O2 Flow Rate FiO2 11/15/18 12:00 98.0 76 18 141/56 (84) 96 11/15/18 09:24 67 153/105 11/15/18 09:24 153/105 11/15/18 09:23 67 153/105 11/15/18 09:00 Room Air 11/15/18 08:00 97.6 67 18 153/105 (121) 96 11/15/18 04:00 97.1 94 18 133/84 (100) 97 11/15/18 00:00 97.9 94 18 130/64 (86) 96 11/14/18 21:00 Room Air 11/14/18 21:00 90 130/81 11/14/18 20:00 98.1 90 18 130/81 (97) 97 11/14/18 16:00 97.9 70 18 101/70 (80) 96 Intake and Output 11/14/18 11/15/18 19:00 07:00 Intake Total 30 ml 240 ml Balance 30 ml 240 ml Intake Oral 30 ml 240 ml # Voids 2 Laboratory Tests 11/15/18 06:00: White Blood Count 6.3, Red Blood Count 4.82, Hemoglobin 14.1L, Hematocrit 42.3, Mean Corpuscular Volume 88, Mean Corpuscular Hemoglobin 29.3, Mean Corpuscular Hemoglobin Concent 33.4, Red Cell Distribution Width 16.1H, Platelet Count 187, Mean Platelet Volume 6.1L, Neutrophils (%) (Auto) 45.2, Lymphocytes (%) (Auto) 36.1, Monocytes (%) (Auto) 13.9H, Eosinophils (%) (Auto) 2.8, Basophils (%) ( Auto) 2.0 Height (Feet): 5 Height (Inches): 6.00 Weight (Pounds): 106 Objective General: alert, cooperative, no distress, appears stated age Head: normocephalic, without obvious abnormality, atraumatic Eyes: conjunctivae/corneas clear. PERRL, EOM's intact Throat: lips, mucosa, and tongue normal. MMM Neck: supple, symmetrical, trachea midline, and no JVD Lungs: clear to auscultation bilaterally Heart: regular rate and rhythm, S1, S2 normal, no murmur, click, rub or gallop Abdomen: soft, non-tender, non-distended, bowel sounds normal; no masses or organomegaly Extremities: extremities normal, atraumatic, no cyanosis or edema Pulses: 2+ and symmetric Skin: skin color, texture, turgor normal; no rashes or lesions Neurologic: grossly normal, no focal deficits Anny Cole MD Nov 15, 2018 14:54
--- NOTE | 2018-11-15 15:27 | Hematology/Onc Progress Note ---
Assessment/Plan Assessment/Plan ASSESSMENT AND PLAN: # Anemia of chronic disease due to underlying chronic medical issues, multifactorial --> Anemia workup has been reviewed. Ferritin 83, TIBC 242 --> No evidence of hemolysis is noted, peripheral smear has been reviewed. --> Hgb goal >7. Transfuse prn. --> Epogen or iron at this time is not particularly indicated --> Medications have been reviewed # Thrombocytopenia - potential causes multifactorial, evaluate liver and viral etiologies to begin, also could be related to underlying medications patient has received. --> Currently improved --> Hep panel and HIV on PRIOR admission was negative --> US abd negative for cirrhosis and hsm --> Peripheral smear ordered to evaluate for blasts/schistocytes, none noted --> abx and other meds have been reviewed --> ok for ppx if plt >50k w/ either heparin or lovenox --> Transfuse if Plt < 20k and fever, or if Plt < 10k without fever --> Plt trend: 169k-->187k # Atelectasis, Optimize pulmonary hygiene/mobilize as tolerated --> on cxr appears stable # Paroxysmal AFib, cardiology recs # Hypertension. # Hypothyroidism. # Lactic acidosis, resolved. # MACARENA, resolved. The timing of this note does not necessarily reflect the time of the patient was seen. Greatly appreciate consultation! Subjective Allergies: Coded Allergies: RISPERIDONE (Unverified Allergy, Unknown, 07/04/18) ZIPRASIDONE (Verified Allergy, Unknown, 06/30/18) Uncoded Allergies: RESPERIDONE (Allergy, Unknown, 06/30/18) Subjective 11/06: Pt resting in bed. No acute distress. DC planning. 11/08: Pt asleep in bed. No acute events. 11/10: Pt stable, no signs of acute distress or SOB. Venous duplex negative. 11/11: Pt resting in bed. Afebrile, no sob. MRI brain pending. 11/12: Pt in bed, sleeping. No respiratory distress noted. DC planning. 11/13: Pt awake and alert, refused morning meds. No signs of SOB or pain observed. Plt count significantly improved overnight. 11/15: Pt denies pain, no complaints of dyspnea Objective Objective Current Medications Medications (Trade) Dose Ordered Sig/Eduardo Route PRN Reason Start Time Stop Time Status Last Admin Dose Admin Apixaban (Eliquis) 5 mg BID ORAL 11/07/18 18:00 12/05/18 08:59 11/15/18 09:23 Diltiazem HCl (Cardizem CD) 120 mg DAILY ORAL 11/09/18 09:00 12/09/18 08:59 11/15/18 09:24 Divalproex Sodium (Depakote ER) 1,500 mg DAILY ORAL 11/12/18 09:00 12/12/18 08:59 11/15/18 09:24 Hydralazine HCl (Apresoline) 50 mg QIDPRN PRN ORAL HTN SBP >155 11/07/18 19:30 12/07/18 19:29 11/09/18 16:23 Levothyroxine Sodium (Synthroid) 50 mcg DAILY@0630 ORAL 11/13/18 06:30 12/13/18 06:29 Lisinopril (Prinivil) 20 mg DAILY ORAL 11/16/18 09:00 12/16/18 08:59 Lisinopril (Zestril) 10 mg QPM@1800 ORAL 11/15/18 18:00 12/15/18 17:59 Metoprolol Tartrate (Lopressor) 100 mg Q12HR ORAL 11/07/18 21:00 12/05/18 18:59 11/15/18 09:23 Mirtazapine (Remeron) 30 mg BEDTIME ORAL 11/12/18 21:00 12/12/18 20:59 11/12/18 20:43 Olanzapine (ZyPREXA) 30 mg DAILY ORAL 11/12/18 09:00 12/12/18 08:59 Trazodone HCl (Desyrel) 50 mg BEDTIME ORAL 11/11/18 21:00 12/11/18 20:59 11/12/18 20:43 Last 24 Hour Vital Signs Date Time Temp Pulse Resp B/P (MAP) Pulse Ox O2 Delivery O2 Flow Rate FiO2 11/15/18 12:00 98.0 76 18 141/56 (84) 96 11/15/18 09:24 67 153/105 11/15/18 09:24 153/105 11/15/18 09:23 67 153/105 11/15/18 09:00 Room Air 11/15/18 08:00 97.6 67 18 153/105 (121) 96 11/15/18 04:00 97.1 94 18 133/84 (100) 97 11/15/18 00:00 97.9 94 18 130/64 (86) 96 11/14/18 21:00 Room Air 11/14/18 21:00 90 130/81 11/14/18 20:00 98.1 90 18 130/81 (97) 97 11/14/18 16:00 97.9 70 18 101/70 (80) 96 11/14/18 12:00 98.5 69 18 101/69 (80) 96 11/14/18 09:00 Room Air 11/14/18 09:00 81 147/79 11/14/18 09:00 147/79 11/14/18 09:00 81 147/79 11/14/18 08:05 97.9 63 19 97/68 (78) 85 11/14/18 08:00 97.9 81 19 147/79 (101) 96 11/14/18 04:00 97.3 62 18 109/89 (96) 95 11/14/18 00:00 97.0 108 18 93/57 (69) 97 11/13/18 21:00 Room Air 11/13/18 20:32 110 99/66 11/13/18 20:00 97.3 110 18 96/61 (73) 96 11/13/18 18:00 94/62 11/13/18 16:00 97.7 112 18 94/62 (73) 98 Intake and Output 11/14/18 11/15/18 19:00 07:00 Intake Total 30 ml 240 ml Balance 30 ml 240 ml Intake Oral 30 ml 240 ml # Voids 2 Labs Test 11/12/18 18:10 11/13/18 13:30 11/15/18 06:00 White Blood Count 6.2 K/UL (4.8-10.8) 6.4 K/UL (4.8-10.8) 6.3 K/UL (4.8-10.8) Red Blood Count 4.76 M/UL (4.70-6.10) 5.17 M/UL (4.70-6.10) 4.82 M/UL (4.70-6.10) Hemoglobin 13.8 G/DL (14.2-18.0) 15.0 G/DL (14.2-18.0) 14.1 G/DL (14.2-18.0) Hematocrit 41.1 % (42.0-52.0) 45.4 % (42.0-52.0) 42.3 % (42.0-52.0) Mean Corpuscular Volume 86 FL (80-99) 88 FL (80-99) 88 FL (80-99) Mean Corpuscular Hemoglobin 28.9 PG (27.0-31.0) 28.9 PG (27.0-31.0) 29.3 PG (27.0-31.0) Mean Corpuscular Hemoglobin Concent 33.5 G/DL (32.0-36.0) 33.0 G/DL (32.0-36.0) 33.4 G/DL (32.0-36.0) Red Cell Distribution Width 15.2 % (11.6-14.8) 16.1 % (11.6-14.8) 16.1 % (11.6-14.8) Platelet Count 169 K/UL (150-450) 185 K/UL (150-450) 187 K/UL (150-450) Mean Platelet Volume 5.9 FL (6.5-10.1) 6.2 FL (6.5-10.1) 6.1 FL (6.5-10.1) Neutrophils (%) (Auto) 43.5 % (45.0-75.0) 53.3 % (45.0-75.0) 45.2 % (45.0-75.0) Lymphocytes (%) (Auto) 35.2 % (20.0-45.0) 28.9 % (20.0-45.0) 36.1 % (20.0-45.0) Monocytes (%) (Auto) 15.0 % (1.0-10.0) 13.0 % (1.0-10.0) 13.9 % (1.0-10.0) Eosinophils (%) (Auto) 3.6 % (0.0-3.0) 2.8 % (0.0-3.0) 2.8 % (0.0-3.0) Basophils (%) (Auto) 2.6 % (0.0-2.0) 1.9 % (0.0-2.0) 2.0 % (0.0-2.0) Sodium Level 138 MMOL/L (136-145) 138 MMOL/L (136-145) Potassium Level 4.2 MMOL/L (3.5-5.1) 4.3 MMOL/L (3.5-5.1) Chloride Level 100 MMOL/L (98-107) 101 MMOL/L (98-107) Carbon Dioxide Level 32 MMOL/L (21-32) 31 MMOL/L (21-32) Anion Gap 6 mmol/L (5-15) 6 mmol/L (5-15) Blood Urea Nitrogen 33 mg/dL (7-18) 37 mg/dL (7-18) Creatinine 1.1 MG/DL (0.55-1.30) 1.2 MG/DL (0.55-1.30) Estimat Glomerular Filtration Rate > 60 mL/min (>60) > 60 mL/min (>60) Glucose Level 134 MG/DL (74-106) 173 MG/DL (74-106) Calcium Level 9.6 MG/DL (8.5-10.1) 9.5 MG/DL (8.5-10.1) Total Bilirubin 0.3 MG/DL (0.2-1.0) Aspartate Amino Transf (AST/SGOT) 18 U/L (15-37) Alanine Aminotransferase (ALT/SGPT) 8 U/L (12-78) Alkaline Phosphatase 50 U/L (46-116) Total Protein 6.5 G/DL (6.4-8.2) Albumin 3.2 G/DL (3.4-5.0) Globulin 3.3 g/dL Albumin/Globulin Ratio 1.0 (1.0-2.7) Vitamin B12 Level 1165 PG/ML (193-986) Folate 21.1 NG/ML (8.6-58.9) Thyroid Stimulating Hormone (TSH) 3.261 uiU/mL (0.358-3.740) Height (Feet): 5 Height (Inches): 6.00 Weight (Pounds): 106 Objective PHYSICAL EXAMINATION: VITAL SIGNS: Have been reviewed. HEENT: PERRLA. NECK: Supple. No lymphadenopathy. CHEST: Clear to auscultation. CARDIOVASCULAR: Regular rate and rhythm. No murmurs or extra sounds. GASTROINTESTINAL: Soft, nontender, and nondistended. No organomegaly. EXTREMITIES: No edema. Moves all four extremities. NEUROLOGIC: Sensory intact to light touch. Reflexes are equal on both sides. Bennie Goss MD Nov 15, 2018 15:27
[2018-11-15 16:00] VITALS: BP 139/79
--- NOTE | 2018-11-15 16:00 | NUR ---
NURSE NOTES: patient refused to stand up and sits for othostatic v/s. explained the indications and importance. Addendum: 11/15/18 at 1857 by AJ ORNELAS LVN CN informed.
--- NOTE | 2018-11-15 18:57 | NUR ---
HAND-OFF: Report given to [place].
--- NOTE | 2018-11-15 19:37 | NUR ---
NURSE NOTES: RECEIVED PATIENT LYING IN BED, AWAKE, ALERT/ORIENTED TO PERSON/PLACE, DENIES PAIN. NO SIGNS AND SYMPTOMS OF ACUTE CARDIO RESPIRATORY DISTRESS/SHORTNESS OF BREATH, DENIES CHEST PAIN, NO PERIPHERAL EDEMA NOTED. NO IV ACCESS, MD AWARE. POOR PO INTAKE, TOLERATED APPROX 240ML OF H20, NO SIGNS OF ASPIRATION. SIDE RAILS UP X3, BED IN LOWEST POSITION FOR SAFETY, CALL LIGHT WITHIN EASY ACCESS AT ALL TIMES. BED ALARM ACTIVATED. CONTINUE WITH CURRENT PLAN OF CARE. NAD.
[2018-11-15 20:00] VITALS: BP 110/70
[2018-11-15] MEDS: TraZODone 50mg tab ORAL SCH (21:18)
[2018-11-16] VITALS (7 sets, daily range): BP systolic 85–122; BP diastolic 42–67
--- NOTE | 2018-11-16 03:18 | NUR ---
HAND-OFF: Report given to ELLA DONG.
--- NOTE | 2018-11-16 03:24 | NUR ---
NURSE NOTES: Pt received in bed awake, no c/o pain or signs of distress, uses a walker to go to the restroom, will continue to monitor.
--- NOTE | 2018-11-16 07:30 | NUR ---
NURSE NOTES: Received pt from ELLA DONG. Pt is confuse and orient x3. pt is in RA, No SOB or acute respiratory distress noted. pt has no iv access MD is aware. All needs attended, bed is locked and is in the lowest position. call light within easy reach. will continue to monitor.
[2018-11-16 07:35] LABS: ANION GAP 6 mmol/L (5-15); BLOOD UREA NITROGEN 48 mg/dL (7-18); CALCIUM 9.3 MG/DL (8.5-10.1); CARBON DIOXIDE 32 MMOL/L (21-32); CHLORIDE 101 MMOL/L (98-107); CREATININE 1.3 MG/DL (0.55-1.30); POTASSIUM 4.1 MMOL/L (3.5-5.1); SODIUM 138 MMOL/L (136-145)
--- NOTE | 2018-11-16 07:36 | NUR ---
HAND-OFF: Report given to ELLA Briones.
[2018-11-16 07:41] LABS: BASOPHILS % (AUTO) 1.4 % (0.0-2.0); EOSINOPHILS % (AUTO) 3.7 % (0.0-3.0); HEMATOCRIT 37.6 % (42.0-52.0); HEMOGLOBIN 12.5 G/DL (14.2-18.0); LYMPHOCYTES % (AUTO) 39.5 % (20.0-45.0); MEAN CORPUSCULAR VOLUME 88 FL (80-99); MONOCYTES % (AUTO) 10.8 % (1.0-10.0); NEUTROPHILS % (AUTO) 44.7 % (45.0-75.0); PLATELET COUNT 175 K/UL (150-450); RED BLOOD COUNT 4.25 M/UL (4.70-6.10); RED CELL DISTRIBUTION WIDTH 16.1 % (11.6-14.8); WHITE BLOOD COUNT 6.7 K/UL (4.8-10.8)
[2018-11-16] MEDS: OLANZapine 10mg tab ORAL SCH (08:47)
[2018-11-16] MEDS: Depakote ER 500mg tab ORAL SCH (08:47)
[2018-11-16] MEDS: dilTIAZem HCl CD 120mg cap ORAL SCH (08:47)
[2018-11-16] MEDS: Eliquis 5mg tablet ORAL SCH ×2 (08:47→17:59)
[2018-11-16] MEDS: Lisinopril 20mg tab ORAL SCH (08:49)
--- NOTE | 2018-11-16 13:26 | Hematology/Onc Progress Note ---
Assessment/Plan Assessment/Plan ASSESSMENT AND PLAN: # Anemia of chronic disease due to underlying chronic medical issues, multifactorial --> Anemia workup has been reviewed. Ferritin 83, TIBC 242 --> No evidence of hemolysis is noted, peripheral smear has been reviewed. --> Hgb goal >7. Transfuse prn. --> Epogen or iron at this time is not particularly indicated --> Medications have been reviewed # Thrombocytopenia - potential causes multifactorial, evaluate liver and viral etiologies to begin, also could be related to underlying medications patient has received. --> Currently improved 118--> 175-->157k --> Hep panel and HIV on PRIOR admission was negative --> US abd negative for cirrhosis and hsm --> Peripheral smear ordered to evaluate for blasts/schistocytes, none noted --> abx and other meds have been reviewed --> ok for ppx if plt >50k w/ either heparin or lovenox --> Transfuse if Plt < 20k and fever, or if Plt < 10k without fever --> Plt trend: 169k-->187k # Atelectasis, Optimize pulmonary hygiene/mobilize as tolerated --> on cxr appears stable --> per pulm # Paroxysmal AFib, cardiology recs # Hypertension. # Hypothyroidism. # Lactic acidosis, resolved. # MACARENA, resolved. The timing of this note does not necessarily reflect the time of the patient was seen. Greatly appreciate consultation! Subjective HEENT: Denies: no symptoms, eye pain, blurred vision, tearing, double vision, ear pain, ear discharge, nose pain, nose congestion, throat pain, throat swelling, mouth pain, mouth swelling, other Cardiovascular: Denies: no symptoms, chest pain, edema, irregular heart rate, lightheadedness, palpitations, syncope, other Genitourinary: Denies: no symptoms, burning, discharge, frequency, flank pain, hematuria, incontinence, pain, urgency, other Neurologic/Psychiatric: Denies: no symptoms, anxiety, depressed, emotional problems, headache, numbness, paresthesia, pre-existing deficit, seizure, tingling, tremors, weakness, other Endocrine: Denies: no symptoms, excessive sweating, flushing, intolerance to cold, intolerance to heat, increased hunger, increased thirst, increased urine, unexplained weight gain, unexplained weight loss, other Hematologic/Lymphatic: Denies: no symptoms, anemia, easy bleeding, easy bruising, adenopathy, other Allergies: Coded Allergies: RISPERIDONE (Unverified Allergy, Unknown, 07/04/18) ZIPRASIDONE (Verified Allergy, Unknown, 06/30/18) Uncoded Allergies: RESPERIDONE (Allergy, Unknown, 06/30/18) Subjective 11/06: Pt resting in bed. No acute distress. DC planning. 11/08: Pt asleep in bed. No acute events. 11/10: Pt stable, no signs of acute distress or SOB. Venous duplex negative. 11/11: Pt resting in bed. Afebrile, no sob. MRI brain pending. 11/12: Pt in bed, sleeping. No respiratory distress noted. DC planning. 11/13: Pt awake and alert, refused morning meds. No signs of SOB or pain observed. Plt count significantly improved overnight. 11/15: Pt denies pain, no complaints of dyspnea Objective Objective Current Medications Medications (Trade) Dose Ordered Sig/Eduardo Route PRN Reason Start Time Stop Time Status Last Admin Dose Admin Apixaban (Eliquis) 5 mg BID ORAL 11/07/18 18:00 12/05/18 08:59 11/16/18 08:47 Diltiazem HCl (Cardizem CD) 120 mg DAILY ORAL 11/09/18 09:00 12/09/18 08:59 11/16/18 08:47 Divalproex Sodium (Depakote ER) 1,500 mg DAILY ORAL 11/12/18 09:00 12/12/18 08:59 11/16/18 08:47 Hydralazine HCl (Apresoline) 50 mg QIDPRN PRN ORAL HTN SBP >155 11/07/18 19:30 12/07/18 19:29 11/09/18 16:23 Levothyroxine Sodium (Synthroid) 50 mcg DAILY@0630 ORAL 11/13/18 06:30 12/13/18 06:29 11/16/18 06:04 Lisinopril (Prinivil) 20 mg DAILY ORAL 11/16/18 09:00 12/16/18 08:59 11/16/18 08:49 Lisinopril (Zestril) 10 mg QPM@1800 ORAL 11/15/18 18:00 12/15/18 17:59 11/15/18 17:29 Metoprolol Tartrate (Lopressor) 100 mg Q12HR ORAL 11/07/18 21:00 12/05/18 18:59 11/16/18 08:47 Mirtazapine (Remeron) 30 mg BEDTIME ORAL 11/12/18 21:00 12/12/18 20:59 11/15/18 21:19 Olanzapine (ZyPREXA) 30 mg DAILY ORAL 11/12/18 09:00 12/12/18 08:59 11/16/18 08:47 Trazodone HCl (Desyrel) 50 mg BEDTIME ORAL 11/11/18 21:00 12/11/18 20:59 11/15/18 21:18 Last 24 Hour Vital Signs Date Time Temp Pulse Resp B/P (MAP) Pulse Ox O2 Delivery O2 Flow Rate FiO2 11/16/18 12:00 97.5 60 17 100/52 (68) 98 11/16/18 09:00 60 61 111 11/16/18 09:00 Room Air 11/16/18 08:49 122/56 11/16/18 08:47 60 122/56 11/16/18 08:47 60 122/56 11/16/18 08:00 97.3 60 18 122/56 (78) 95 11/16/18 00:00 97.3 67 18 101/67 (78) 97 11/15/18 21:19 72 127/75 11/15/18 21:00 Room Air 11/15/18 20:00 97.1 64 18 110/70 (83) 98 11/15/18 20:00 61 64 82 11/15/18 17:29 139/79 11/15/18 16:00 98.4 66 18 139/79 (99) 98 11/15/18 12:00 98.0 76 18 141/56 (84) 96 11/15/18 09:24 67 153/105 11/15/18 09:24 153/105 11/15/18 09:23 67 153/105 11/15/18 09:00 Room Air 11/15/18 08:00 97.6 67 18 153/105 (121) 96 11/15/18 04:00 97.1 94 18 133/84 (100) 97 11/15/18 00:00 97.9 94 18 130/64 (86) 96 11/14/18 21:00 Room Air 11/14/18 21:00 90 130/81 11/14/18 20:00 98.1 90 18 130/81 (97) 97 11/14/18 16:00 97.9 70 18 101/70 (80) 96 Intake and Output 11/15/18 11/16/18 19:00 07:00 Intake Total 100 ml 480 ml Balance 100 ml 480 ml Intake Oral 480 ml Other 100 ml # Voids 1 # Bowel Movements 1 Labs Test 11/13/18 13:30 11/15/18 06:00 11/16/18 06:10 White Blood Count 6.4 K/UL (4.8-10.8) 6.3 K/UL (4.8-10.8) 6.7 K/UL (4.8-10.8) Red Blood Count 5.17 M/UL (4.70-6.10) 4.82 M/UL (4.70-6.10) 4.25 M/UL (4.70-6.10) Hemoglobin 15.0 G/DL (14.2-18.0) 14.1 G/DL (14.2-18.0) 12.5 G/DL (14.2-18.0) Hematocrit 45.4 % (42.0-52.0) 42.3 % (42.0-52.0) 37.6 % (42.0-52.0) Mean Corpuscular Volume 88 FL (80-99) 88 FL (80-99) 88 FL (80-99) Mean Corpuscular Hemoglobin 28.9 PG (27.0-31.0) 29.3 PG (27.0-31.0) 29.5 PG (27.0-31.0) Mean Corpuscular Hemoglobin Concent 33.0 G/DL (32.0-36.0) 33.4 G/DL (32.0-36.0) 33.3 G/DL (32.0-36.0) Red Cell Distribution Width 16.1 % (11.6-14.8) 16.1 % (11.6-14.8) 16.1 % (11.6-14.8) Platelet Count 185 K/UL (150-450) 187 K/UL (150-450) 175 K/UL (150-450) Mean Platelet Volume 6.2 FL (6.5-10.1) 6.1 FL (6.5-10.1) 6.6 FL (6.5-10.1) Neutrophils (%) (Auto) 53.3 % (45.0-75.0) 45.2 % (45.0-75.0) 44.7 % (45.0-75.0) Lymphocytes (%) (Auto) 28.9 % (20.0-45.0) 36.1 % (20.0-45.0) 39.5 % (20.0-45.0) Monocytes (%) (Auto) 13.0 % (1.0-10.0) 13.9 % (1.0-10.0) 10.8 % (1.0-10.0) Eosinophils (%) (Auto) 2.8 % (0.0-3.0) 2.8 % (0.0-3.0) 3.7 % (0.0-3.0) Basophils (%) (Auto) 1.9 % (0.0-2.0) 2.0 % (0.0-2.0) 1.4 % (0.0-2.0) Sodium Level 138 MMOL/L (136-145) 138 MMOL/L (136-145) Potassium Level 4.3 MMOL/L (3.5-5.1) 4.1 MMOL/L (3.5-5.1) Chloride Level 101 MMOL/L (98-107) 101 MMOL/L (98-107) Carbon Dioxide Level 31 MMOL/L (21-32) 32 MMOL/L (21-32) Anion Gap 6 mmol/L (5-15) 6 mmol/L (5-15) Blood Urea Nitrogen 37 mg/dL (7-18) 48 mg/dL (7-18) Creatinine 1.2 MG/DL (0.55-1.30) 1.3 MG/DL (0.55-1.30) Estimat Glomerular Filtration Rate > 60 mL/min (>60) 55.4 mL/min (>60) Glucose Level 173 MG/DL (74-106) 84 MG/DL (74-106) Calcium Level 9.5 MG/DL (8.5-10.1) 9.3 MG/DL (8.5-10.1) Vitamin B12 Level 1040 PG/ML (193-986) Thyroid Stimulating Hormone (TSH) 2.788 uiU/mL (0.358-3.740) Height (Feet): 5 Height (Inches): 6.00 Weight (Pounds): 106 Objective PHYSICAL EXAMINATION: VITAL SIGNS: Have been reviewed. HEENT: PERRLA. NECK: Supple. No lymphadenopathy. CHEST: Clear to auscultation. CARDIOVASCULAR: Regular rate and rhythm. No murmurs or extra sounds. GASTROINTESTINAL: Soft, nontender, and nondistended. No organomegaly. EXTREMITIES: No edema. Moves all four extremities. NEUROLOGIC: Sensory intact to light touch. Reflexes are equal on both sides. Bennie Goss MD Nov 16, 2018 13:26
--- NOTE | 2018-11-16 14:48 | NUR ---
RD ASSESSMENT & RECOMMENDATIONS SEE CARE ACTIVITY FOR COMPLETE ASSESSMENT DAILY ESTIMATED NEEDS: Needs based on cardiac, possible wt loss/ 49kg 30-35 kcals/kg 9813-1512 total kcals 1-1.5 g protein/kg 49-74 g total protein 25-30 mL/kg 0634-1880 total fluid mLs NUTRITION DIAGNOSIS: Increased kcal/prot intake needs R/T wt loss as evidenced by pt w/ possible significant wt loss of 23lbs/17.5% in 4 months, currently w/ poor and variable PO intake. CURRENT DIET:CARDIAC PO DIET RECOMMENDATIONS: Liberalized REGULAR w/ poor and variable PO intake ADDITIONAL RECOMMENDATIONS: * Calibrated bedscale wt or standing wt of accurate CBW * Weekly wt monitoring given possible recent wt loss * Ensure Enlive TID w/ meals * MVI x 1 as supplement * Monitor lytes, replete as needed * IVF w/ IV access: BUN trending up .
--- NOTE | 2018-11-16 17:23 | NUR ---
HAND-OFF: Report given to ELLA CUELLAR.
--- NOTE | 2018-11-16 17:37 | NUR ---
CASE MANAGEMENT:REVIEW 11/15/2018 SI: ANEMIA. AFIB W/RVR T 97.1 HR 64 RR 18 B/P 110/70 SATS 98% ON RA BUN 37 GLU 173 IS: SYNTHROID PO QD REMERON PO QHS DEPAKOTE PO QD ZYPREXA PO QD TRAZODONE PO QHS CARDIZEM 120MG PO QD LOPRESSOR 100MG PO Q12H ELIQUIS PO BID LISINOPRIL PO BID : MED/SURG STATUS 4 EAST DCP: FROM NIKKI NAYAK 11/16/2018 SI: ANEMIA. AFIB W/RVR T 97.3 HR 67 RR 18 B/P 101/67 SATS 97% ON RA BUN 48 IS: SYNTHROID PO QD REMERON PO QHS DEPAKOTE PO QD ZYPREXA PO QD TRAZODONE PO QHS CARDIZEM 120MG PO QD LOPRESSOR 100MG PO Q12H ELIQUIS PO BID LISINOPRIL PO BID : MED/SURG STATUS 4 EAST DCP: FROM NIKKI NAYAK
--- NOTE | 2018-11-16 17:57 | NUR ---
NURSE NOTES: Patient received from ELLA Briones for continuity of care. Will continue to monitor.
[2018-11-16] MEDS: Lisinopril 10mg tab ORAL SCH (18:00)
--- NOTE | 2018-11-16 19:34 | NUR ---
HAND-OFF: Report given to ELLA Lubin.
--- NOTE | 2018-11-16 19:40 | NUR ---
NURSE NOTES: Received report from ELLA Emery. Patient A&Ox2. On room air, no signs of distress or labored breathing. No IV access, MD aware. Bed in lowest position, call in reach. Will continue to monitor.
--- NOTE | 2018-11-16 21:30 | Consultation ---
DATE OF CONSULTATION: 11/16/2018 CONSULTING PHYSICIAN: Anna Mathew M.D. HISTORY OF PRESENT ILLNESS: This is a 63-year-old male with a history of multiple medical problems, who has been admitted to the hospital for medical stabilization. The patient is disorganized, easily agitated. Poor insight and judgment. Not able to be engaged during the evaluation. Needs assistance and is dependent. PAST PSYCHIATRIC HISTORY: Schizophrenia. PAST MEDICAL HISTORY: Significant for 1. Anemia. 2. Presyncope. 3. Hypertension. 4. Hypothyroidism. 5. AFib. ALLERGIES: Risperidone and ziprasidone. SUBSTANCE ABUSE HISTORY: No known history of illicit drug use or alcohol. MENTAL STATUS EXAMINATION: The patient is alert, confused, disoriented. Mood is neutral. Affect is flat. Thought process, there is a paucity of thought content. Thought content, no suicidal or homicidal ideations. ASSESSMENT: [place] I Schizoaffective disorder. [place] II Deferred. [place] III As above. [place] IV Low. [place] V 20. PLAN: 1. The patient will be continued on mirtazapine 30 mg at night. 2. We will discontinue the trazodone 50 mg at bedtime. 3. The patient is also on Zyprexa 30 mg at bedtime. 4. We will continue to follow and readjust the medications. Anna Mathew M.D. DR: JUAN JOB#: [id number] CC:
--- NOTE | 2018-11-16 23:39 | General Progress Note ---
Assessment/Plan Status: stable, unchanged Assessment/Plan: 63 y/o man with hx of paroxysmal atrial fibrillation, presented to the hospital with pre-syncope, found to have rapid atrial fibrillation. #Paroxysmal Atrial Fibrillation #Atrial fibrillation with RVR - Cont beta blockers, rate control - Cont NOAC.. - echo did not show any remarkable changes - Apprec cardiology recs #Anemia due to chronic illness #Thrombocytopenia - Hgb and platelet count appeared to be at baseline, seen by Hematology, no new changes recommended #unstable gait -cont PT #Behavorial disorder -psych meds restarted -psychiatry consulted time of note may not reflect time of encounter Subjective Date patient seen: Nov 16, 2018 Allergies: Coded Allergies: RISPERIDONE (Unverified Allergy, Unknown, 07/04/18) ZIPRASIDONE (Verified Allergy, Unknown, 06/30/18) Uncoded Allergies: RESPERIDONE (Allergy, Unknown, 06/30/18) Subjective Pt with unstable gait, cont PT daily. No chest pain or dyspnea, no other complaints, no tele events. Refused MRI, appetite mildly improved today, took meds this am, BP improved, more interactive today Objective Last 24 Hour Vital Signs Date Time Temp Pulse Resp B/P (MAP) Pulse Ox O2 Delivery O2 Flow Rate FiO2 11/16/18 21:00 Room Air 11/16/18 21:00 62 103/63 11/16/18 20:45 62 103/63 (76) 11/16/18 20:00 98.1 58 17 88/42 (57) 96 11/16/18 18:00 90/58 11/16/18 16:00 97.2 63 17 102/52 (69) 96 11/16/18 12:00 97.5 60 17 100/52 (68) 98 11/16/18 09:00 60 61 111 11/16/18 09:00 Room Air 11/16/18 08:49 122/56 11/16/18 08:47 60 122/56 11/16/18 08:47 60 122/56 11/16/18 08:00 97.3 60 18 122/56 (78) 95 11/16/18 00:00 97.3 67 18 101/67 (78) 97 Intake and Output 11/15/18 11/16/18 18:59 06:59 Intake Total 100 ml 480 ml Balance 100 ml 480 ml Intake Oral 480 ml Other 100 ml # Voids 1 # Bowel Movements 1 Laboratory Tests 11/16/18 06:10: White Blood Count 6.7, Red Blood Count 4.25L, Hemoglobin 12.5L, Hematocrit 37.6L , Mean Corpuscular Volume 88, Mean Corpuscular Hemoglobin 29.5, Mean Corpuscular Hemoglobin Concent 33.3, Red Cell Distribution Width 16.1H, Platelet Count 175, Mean Platelet Volume 6.6, Neutrophils (%) (Auto) 44.7L, Lymphocytes (%) (Auto) 39.5, Monocytes (%) (Auto) 10.8H, Eosinophils (%) (Auto) 3.7H, Basophils (%) (Auto) 1.4, Sodium Level 138, Potassium Level 4.1, Chloride Level 101, Carbon Dioxide Level 32, Anion Gap 6, Blood Urea Nitrogen 48H, Creatinine 1.3, Estimat Glomerular Filtration Rate 55.4, Glucose Level 84, Calcium Level 9.3, Vitamin B12 Level 1040H, Vitamin D 25-Hydroxy [Pending], 25- Hydroxy Vitamin D2 [Pending], 25-Hydroxy Vitamin D3 [Pending], Thyroid Stimulating Hormone (TSH) 2.788 Height (Feet): 5 Height (Inches): 6.00 Weight (Pounds): 106 Objective General: alert, cooperative, no distress, appears stated age Head: normocephalic, without obvious abnormality, atraumatic Eyes: conjunctivae/corneas clear. PERRL, EOM's intact Throat: lips, mucosa, and tongue normal. MMM Neck: supple, symmetrical, trachea midline, and no JVD Lungs: clear to auscultation bilaterally Heart: regular rate and rhythm, S1, S2 normal, no murmur, click, rub or gallop Abdomen: soft, non-tender, non-distended, bowel sounds normal; no masses or organomegaly Extremities: extremities normal, atraumatic, no cyanosis or edema Pulses: 2+ and symmetric Skin: skin color, texture, turgor normal; no rashes or lesions Neurologic: grossly normal, no focal deficits Anny Cole MD Nov 16, 2018 23:39
--- NOTE | 2018-11-16 23:47 | Neurology Progress Note ---
Interim History Interim History ROS Limited/Unobtainable: Yes Complaints: AMS Events: This visit was performed on November 16, [address] Serjio Sharpe Review of Systems All Systems: reviewed and negative except above Objective Physical Exam Last Vital Signs Date Time Temp Pulse Resp B/P (MAP) Pulse Ox O2 Delivery O2 Flow Rate FiO2 11/16/18 21:00 Room Air 11/16/18 21:00 62 103/63 11/16/18 20:00 98.1 17 96 Laboratory Tests Test 11/16/18 06:10 White Blood Count 6.7 K/UL (4.8-10.8) Red Blood Count 4.25 M/UL (4.70-6.10) L Hemoglobin 12.5 G/DL (14.2-18.0) L Hematocrit 37.6 % (42.0-52.0) L Mean Corpuscular Volume 88 FL (80-99) Mean Corpuscular Hemoglobin 29.5 PG (27.0-31.0) Mean Corpuscular Hemoglobin Concent 33.3 G/DL (32.0-36.0) Red Cell Distribution Width 16.1 % (11.6-14.8) H Platelet Count 175 K/UL (150-450) Mean Platelet Volume 6.6 FL (6.5-10.1) Neutrophils (%) (Auto) 44.7 % (45.0-75.0) L Lymphocytes (%) (Auto) 39.5 % (20.0-45.0) Monocytes (%) (Auto) 10.8 % (1.0-10.0) H Eosinophils (%) (Auto) 3.7 % (0.0-3.0) H Basophils (%) (Auto) 1.4 % (0.0-2.0) Sodium Level 138 MMOL/L (136-145) Potassium Level 4.1 MMOL/L (3.5-5.1) Chloride Level 101 MMOL/L (98-107) Carbon Dioxide Level 32 MMOL/L (21-32) Anion Gap 6 mmol/L (5-15) Blood Urea Nitrogen 48 mg/dL (7-18) H Creatinine 1.3 MG/DL (0.55-1.30) Estimat Glomerular Filtration Rate 55.4 mL/min (>60) Glucose Level 84 MG/DL (74-106) Calcium Level 9.3 MG/DL (8.5-10.1) Vitamin B12 Level 1040 PG/ML (193-986) H Vitamin D 25-Hydroxy Pending 25-Hydroxy Vitamin D2 Pending 25-Hydroxy Vitamin D3 Pending Thyroid Stimulating Hormone (TSH) 2.788 uiU/mL (0.358-3.740) General: well developed, well nourished, no acute distress Head: normocophalic, atraumatic Neck: no rigidity EENT: benign Neurologic Exam Mental Status: awake, alert, oriented x4, normal cognition, good mathematical skills, normal recent memory, normal remote memory, preserved visuospatial function Speech: normal speech, no dysarthia Language: normal language, no aphasia Cranial Nerve II: fundus normal, visual francis, no papilledema Cranial Nerves III, IV, : PERRLA, EOMI, pupils Cranial Nerve V: normal facial sensations, temporales function normal, masseters function normal, pterygoids function normal Cranial Nerve VII: no facial asymmetry, normal facial expressions Cranial Nerve VIII: normal hearing, no nystagmus Cranial Nerve IX: normal palate elevation, gag response Cranial Nerve X: no voice hoarseness Cranial Nerve XI: SCM symmetric, trapezii function normal Cranial Nerve XII: tongue midline, no tongue atrophy/fasciculations Motor System: normal muscle tone, strength 5/5, no involuntary movement, no muscle wasting Sensory: normal pinprick, normal light touch, normal position sense, normal graphesthesia Coordination: normal finger to nose bilaterally, normal heel to ramsay bilaterally, negative Romberg test Deep Tendon Reflexes: 2+ bicep (L), 2+ bicep (R), 2+ tricep (L), 2+ tricep (R) , 2+ brachioradialis (L), 2+ brachioradialis (R), 2+ knee (L), 2+ knee (R), 2+ ankle (L), 2+ ankle (R) Stance: normal Gait: stable, normal regular, heel + toe gait Impression/Recommendations Problems: (1) Anemia (2) Pre-syncope (3) Hyponatremia (4) Dehydration (5) Syncope (6) Parkinsonism (7) HTN (hypertension) (8) Hypothyroid Assessment & Plan: TSH improving Status: stable, unchanged Recommendations Continue Neuro OBs Q 4 hrs Help maintain sleep hygiene by minimizing non essential nighttime care and making room dark and quiet at night Reorient patient regularly PT Eval and Amb / OOB QD SBP<140 Na 135-145 Bernadette Matthews N.P. Nov 16, 2018 23:47
[2018-11-17] VITALS: BP 104/56
--- NOTE | 2018-11-17 03:05 | NUR ---
NURSE NOTES: Received a report from ELLA Okeefe. Pt is sleeping comfortably. On room air. No pain/discomfort noted. No IV access, MD aware. Bed in lowest position. Bed alarm is on. Call light within reach. Will continue to monitor.
--- NOTE | 2018-11-17 03:19 | NUR ---
HAND-OFF: Report given to Yuly Harman RN.
--- NOTE | 2018-11-17 03:35 | NUR ---
NURSE NOTES: Received report from ELLA Lubin. Patient is lightly sleep in self-positioned position. Bed at the lowest with alarm, brake, and side rails up x2 for safety measures. Patient breathing unlabored and evenly without any signs of distress noted at this time. No signs of pain noted at this time. Patient is verbally responsive to let needs known. No IV access, MD aware. Call light placed within reach. Will continue to monitor and provide care as ordered.
[2018-11-17 04:00] VITALS: BP 112/64
--- NOTE | 2018-11-17 07:00 | NUR ---
HAND-OFF: Report given to ELLA Briones.
--- NOTE | 2018-11-17 07:30 | NUR ---
NURSE NOTES: Received pt from ELLA CUELLAR/VIRIDIANA. Pt is confuse and orient x3. pt is in RA, No SOB or acute respiratory distress noted. pt has no iv access MD is aware. Pt is eating breakfast independently. All needs attended, bed is locked and is in the lowest position. call light within easy reach. will continue to monitor.
[2018-11-17 08:00] VITALS: BP 92/41
[2018-11-17] MEDS: Lisinopril 20mg tab ORAL SCH (09:00)
[2018-11-17] MEDS: dilTIAZem HCl CD 120mg cap ORAL SCH (09:00)
[2018-11-17] MEDS: OLANZapine 10mg tab ORAL SCH (09:59)
[2018-11-17] MEDS: Eliquis 5mg tablet ORAL SCH ×2 (09:59→17:49)
[2018-11-17] MEDS: Depakote ER 500mg tab ORAL SCH (10:00)
--- NOTE | 2018-11-17 11:53 | NUR ---
CASE MANAGEMENT: REVIEW 11/17/2018 SI: ANEMIA. AFIB W/RVR T 97.5 HR 59 RR 18 B/P 112/64 SATS 99% ON RA NO LABS TODAY IS: SYNTHROID PO QD REMERON PO QHS DEPAKOTE PO QD ZYPREXA PO QD TRAZODONE PO QHS CARDIZEM 120MG PO QD LOPRESSOR 100MG PO Q12H ELIQUIS PO BID LISINOPRIL PO BID : MED/SURG STATUS 4 EAST DCP: FROM NIKKI NAYAK
--- NOTE | 2018-11-17 11:55 | NUR ---
INSURANCE REVIEWS HAVE BEEN FAXED TO: [facility] USE THE SS# THE REF#..... NO SCIENTIST PROPAGATOR ASSIGNED P- [phone].... F- [phone]...REVIEW/CLINICAL
[2018-11-17 12:00] VITALS: BP 95/55
--- NOTE | 2018-11-17 15:34 | NUR ---
NURSE NOTES: Dr HOLMAN visited pt and she is aware BP is low, no new order to RN. Will continue to monitor.
[2018-11-17 15:56] VITALS: BP 110/67
[2018-11-17] MEDS: Lisinopril 10mg tab ORAL SCH (17:50)
--- NOTE | 2018-11-17 18:15 | Progress Note ---
DATE: 11/17/2018 SUBJECTIVE: The patient is asleep, in bed. Requires assistance, dependence. Poor insight. Poor memory. MENTAL STATUS EXAMINATION: Alert, disoriented. Mood is dysphoric. Affect is constricted, congruent with mood. Thought process, concrete. Thought content, no suicidal or homicidal ideations. Cognition impaired. ASSESSMENT: Stable. PLAN: 1. We will continue current medications. 2. Provide the patient with reality orientation and supportive therapy. Anna Mathew M.D. DR: JUAN JOB#: [id number] CC:
--- NOTE | 2018-11-17 19:06 | NUR ---
NURSE NOTES: Received report from ELLA Briones. Patient is laying on the bed with HOB elevated. Patient is awake, alert, and verbally responsive. Patient is breathing unlabored and evenly without signs of any distress. No signs of pain noted at this time. Patient does not have IV access, MD aware. Patient's bed is placed at the lowest with alarm, brake, and side rails up x2 for safety measure. Call light placed within reach. Will continue to monitor and provide care as ordered.
--- NOTE | 2018-11-17 19:16 | Cardiology Progress Note ---
Assessment/Plan Problem List: (1) Atrial fibrillation (2) Anemia (3) Hypothyroid (4) HTN (hypertension) Status: stable, unchanged Status Narrative Mr Marina is a 63 yo man who was adm w/ AF w RVR, presyncope, anemia- felt due to chronic disease. h/h stable His pulse is regular today, c/w SR BP - controlled w/ meds Assessment/Plan Continue apixaban, metoprolol and diltiazem for PAF. Continue lisinopril. Increase activity - PT Awaiting transfer to [facility] care facility. Subjective ROS Limited/Unobtainable: No Subjective Cardiology for Dr. Brooke Mr Marina has no c/o. Objective Last 24 Hour Vital Signs Date Time Temp Pulse Resp B/P (MAP) Pulse Ox O2 Delivery O2 Flow Rate FiO2 11/17/18 17:50 110/67 11/17/18 15:56 97.9 77 20 110/67 (81) 96 11/17/18 12:00 97.7 72 18 95/55 (68) 96 11/17/18 09:00 Room Air 11/17/18 09:00 66 92/41 11/17/18 09:00 66 92/41 11/17/18 09:00 66 77 88 11/17/18 08:00 97.4 66 20 92/41 (58) 97 11/17/18 04:00 97.5 59 18 112/64 (80) 99 11/17/18 00:00 98.2 64 18 104/56 (72) 95 11/16/18 21:00 Room Air 11/16/18 21:00 62 103/63 11/16/18 20:45 62 103/63 (76) 11/16/18 20:00 98.1 58 17 88/42 (57) 96 General Appearance: WD/WN, no apparent distress, alert EENT: PERRL/EOMI Neck: supple, no JVD Rhythm: NSR Cardiovascular: normal rate, regular rhythm, no gallop/murmur Respiratory/Chest: other - occ rhonchi Abdomen: normal bowel sounds, non tender, soft Extremities: no swelling Intake and Output 11/16/18 11/17/18 19:00 07:00 Intake Total 240 ml Balance 240 ml Intake Oral 240 ml # Voids 1 Zenia Owens MD Nov 17, 2018 19:16
--- NOTE | 2018-11-17 19:28 | NUR ---
HAND-OFF: Report given to POLO/VIRIDIANA.
[2018-11-17 20:00] VITALS: BP 102/87
--- NOTE | 2018-11-17 20:34 | General Progress Note ---
Assessment/Plan Status: stable, unchanged Assessment/Plan: 63 y/o man with hx of paroxysmal atrial fibrillation, presented to the hospital with pre-syncope, found to have rapid atrial fibrillation. #Paroxysmal Atrial Fibrillation #Atrial fibrillation with RVR - Cont beta blockers, rate control - Cont NOAC.. - echo did not show any remarkable changes - Apprec cardiology recs #Anemia due to chronic illness #Thrombocytopenia - Hgb and platelet count appeared to be at baseline, seen by Hematology, no new changes recommended #unstable gait -cont PT #Behavorial disorder -psych meds restarted -psychiatry consulted time of note may not reflect time of encounter Subjective Date patient seen: Nov 17, 2018 Allergies: Coded Allergies: RISPERIDONE (Unverified Allergy, Unknown, 07/04/18) ZIPRASIDONE (Verified Allergy, Unknown, 06/30/18) Uncoded Allergies: RESPERIDONE (Allergy, Unknown, 06/30/18) Subjective Pt with unstable gait, cont PT daily. No chest pain or dyspnea, no other complaints, no tele events. Refused MRI, appetite improved today, took meds this am, BP improved, more interactive today, Objective Last 24 Hour Vital Signs Date Time Temp Pulse Resp B/P (MAP) Pulse Ox O2 Delivery O2 Flow Rate FiO2 11/17/18 17:50 110/67 11/17/18 15:56 97.9 77 20 110/67 (81) 96 11/17/18 12:00 97.7 72 18 95/55 (68) 96 11/17/18 09:00 Room Air 11/17/18 09:00 66 92/41 11/17/18 09:00 66 92/41 11/17/18 09:00 66 77 88 11/17/18 08:00 97.4 66 20 92/41 (58) 97 11/17/18 04:00 97.5 59 18 112/64 (80) 99 11/17/18 00:00 98.2 64 18 104/56 (72) 95 11/16/18 21:00 Room Air 11/16/18 21:00 62 103/63 11/16/18 20:45 62 103/63 (76) Intake and Output 11/16/18 11/17/18 19:00 07:00 Intake Total 240 ml Balance 240 ml Intake Oral 240 ml # Voids 1 Height (Feet): 5 Height (Inches): 6.00 Weight (Pounds): 106 Objective General: alert, cooperative, no distress, appears stated age Head: normocephalic, without obvious abnormality, atraumatic Eyes: conjunctivae/corneas clear. PERRL, EOM's intact Throat: lips, mucosa, and tongue normal. MMM Neck: supple, symmetrical, trachea midline, and no JVD Lungs: clear to auscultation bilaterally Heart: regular rate and rhythm, S1, S2 normal, no murmur, click, rub or gallop Abdomen: soft, non-tender, non-distended, bowel sounds normal; no masses or organomegaly Extremities: extremities normal, atraumatic, no cyanosis or edema Pulses: 2+ and symmetric Skin: skin color, texture, turgor normal; no rashes or lesions Neurologic: grossly normal, no focal deficits Anny Cole MD Nov 17, 2018 20:34
--- NOTE | 2018-11-17 21:46 | Hematology/Onc Progress Note ---
Assessment/Plan Assessment/Plan ASSESSMENT AND PLAN: # Anemia of chronic disease due to underlying chronic medical issues, multifactorial --> Anemia workup has been reviewed. Ferritin 83, TIBC 242 --> No evidence of hemolysis is noted, peripheral smear has been reviewed. --> Hgb goal >7. Transfuse prn. --> Epogen or iron at this time is not particularly indicated --> Medications have been reviewed # Thrombocytopenia - potential causes multifactorial, evaluate liver and viral etiologies to begin, also could be related to underlying medications patient has received. --> Currently improved 118--> 175-->157k --> Hep panel and HIV on PRIOR admission was negative --> US abd negative for cirrhosis and hsm --> Peripheral smear ordered to evaluate for blasts/schistocytes, none noted --> abx and other meds have been reviewed --> ok for ppx if plt >50k w/ either heparin or lovenox --> Transfuse if Plt < 20k and fever, or if Plt < 10k without fever --> Plt trend: 169k-->187k # Atelectasis, Optimize pulmonary hygiene/mobilize as tolerated --> on cxr appears stable --> per pulm # Paroxysmal AFib, cardiology recs # Hypertension. # Hypothyroidism. # Lactic acidosis, resolved. # MACARENA, resolved. The timing of this note does not necessarily reflect the time of the patient was seen. Greatly appreciate consultation! Subjective Allergies: Coded Allergies: RISPERIDONE (Unverified Allergy, Unknown, 07/04/18) ZIPRASIDONE (Verified Allergy, Unknown, 06/30/18) Uncoded Allergies: RESPERIDONE (Allergy, Unknown, 06/30/18) Subjective 11/06: Pt resting in bed. No acute distress. DC planning. 11/08: Pt asleep in bed. No acute events. 11/10: Pt stable, no signs of acute distress or SOB. Venous duplex negative. 11/11: Pt resting in bed. Afebrile, no sob. MRI brain pending. 11/12: Pt in bed, sleeping. No respiratory distress noted. DC planning. 11/13: Pt awake and alert, refused morning meds. No signs of SOB or pain observed. Plt count significantly improved overnight. 11/15: Pt denies pain, no complaints of dyspnea 11/17: Pt resting in bed no chest pain or dyspnea, no other complaints Objective Objective Current Medications Medications (Trade) Dose Ordered Sig/Eduardo Route PRN Reason Start Time Stop Time Status Last Admin Dose Admin Apixaban (Eliquis) 5 mg BID ORAL 11/07/18 18:00 12/05/18 08:59 11/17/18 09:59 Diltiazem HCl (Cardizem CD) 120 mg DAILY ORAL 11/09/18 09:00 12/09/18 08:59 11/16/18 08:47 Divalproex Sodium (Depakote ER) 1,500 mg DAILY ORAL 11/12/18 09:00 12/12/18 08:59 11/17/18 10:00 Hydralazine HCl (Apresoline) 50 mg QIDPRN PRN ORAL HTN SBP >155 11/07/18 19:30 12/07/18 19:29 11/09/18 16:23 Levothyroxine Sodium (Synthroid) 50 mcg DAILY@0630 ORAL 11/13/18 06:30 12/13/18 06:29 11/17/18 05:46 Lisinopril (Prinivil) 20 mg DAILY ORAL 11/16/18 09:00 12/16/18 08:59 11/16/18 08:49 Lisinopril (Zestril) 10 mg QPM@1800 ORAL 11/15/18 18:00 12/15/18 17:59 11/15/18 17:29 Metoprolol Tartrate (Lopressor) 100 mg Q12HR ORAL 11/07/18 21:00 12/05/18 18:59 11/17/18 21:10 Mirtazapine (Remeron) 30 mg BEDTIME ORAL 11/12/18 21:00 12/12/18 20:59 11/17/18 21:09 Olanzapine (ZyPREXA) 30 mg DAILY ORAL 11/12/18 09:00 12/12/18 08:59 11/17/18 09:59 Last 24 Hour Vital Signs Date Time Temp Pulse Resp B/P (MAP) Pulse Ox O2 Delivery O2 Flow Rate FiO2 11/17/18 21:10 88 102/87 11/17/18 20:00 98.1 88 18 102/87 (92) 96 11/17/18 17:50 110/67 11/17/18 15:56 97.9 77 20 110/67 (81) 96 11/17/18 12:00 97.7 72 18 95/55 (68) 96 11/17/18 09:00 Room Air 11/17/18 09:00 66 92/41 11/17/18 09:00 66 92/41 11/17/18 09:00 66 77 88 11/17/18 08:00 97.4 66 20 92/41 (58) 97 11/17/18 04:00 97.5 59 18 112/64 (80) 99 11/17/18 00:00 98.2 64 18 104/56 (72) 95 11/16/18 21:00 Room Air 11/16/18 21:00 62 103/63 11/16/18 20:45 62 103/63 (76) 11/16/18 20:00 98.1 58 17 88/42 (57) 96 11/16/18 18:00 90/58 11/16/18 16:00 97.2 63 17 102/52 (69) 96 11/16/18 12:00 97.5 60 17 100/52 (68) 98 11/16/18 09:00 60 61 111 11/16/18 09:00 Room Air 11/16/18 08:49 122/56 11/16/18 08:47 60 122/56 11/16/18 08:47 60 122/56 11/16/18 08:00 97.3 60 18 122/56 (78) 95 11/16/18 00:00 97.3 67 18 101/67 (78) 97 Intake and Output 11/16/18 11/17/18 19:00 07:00 Intake Total 240 ml Balance 240 ml Intake Oral 240 ml # Voids 1 Labs Test 11/15/18 06:00 11/16/18 06:10 White Blood Count 6.3 K/UL (4.8-10.8) 6.7 K/UL (4.8-10.8) Red Blood Count 4.82 M/UL (4.70-6.10) 4.25 M/UL (4.70-6.10) Hemoglobin 14.1 G/DL (14.2-18.0) 12.5 G/DL (14.2-18.0) Hematocrit 42.3 % (42.0-52.0) 37.6 % (42.0-52.0) Mean Corpuscular Volume 88 FL (80-99) 88 FL (80-99) Mean Corpuscular Hemoglobin 29.3 PG (27.0-31.0) 29.5 PG (27.0-31.0) Mean Corpuscular Hemoglobin Concent 33.4 G/DL (32.0-36.0) 33.3 G/DL (32.0-36.0) Red Cell Distribution Width 16.1 % (11.6-14.8) 16.1 % (11.6-14.8) Platelet Count 187 K/UL (150-450) 175 K/UL (150-450) Mean Platelet Volume 6.1 FL (6.5-10.1) 6.6 FL (6.5-10.1) Neutrophils (%) (Auto) 45.2 % (45.0-75.0) 44.7 % (45.0-75.0) Lymphocytes (%) (Auto) 36.1 % (20.0-45.0) 39.5 % (20.0-45.0) Monocytes (%) (Auto) 13.9 % (1.0-10.0) 10.8 % (1.0-10.0) Eosinophils (%) (Auto) 2.8 % (0.0-3.0) 3.7 % (0.0-3.0) Basophils (%) (Auto) 2.0 % (0.0-2.0) 1.4 % (0.0-2.0) Sodium Level 138 MMOL/L (136-145) Potassium Level 4.1 MMOL/L (3.5-5.1) Chloride Level 101 MMOL/L (98-107) Carbon Dioxide Level 32 MMOL/L (21-32) Anion Gap 6 mmol/L (5-15) Blood Urea Nitrogen 48 mg/dL (7-18) Creatinine 1.3 MG/DL (0.55-1.30) Estimat Glomerular Filtration Rate 55.4 mL/min (>60) Glucose Level 84 MG/DL (74-106) Calcium Level 9.3 MG/DL (8.5-10.1) Vitamin B12 Level 1040 PG/ML (193-986) Thyroid Stimulating Hormone (TSH) 2.788 uiU/mL (0.358-3.740) Height (Feet): 5 Height (Inches): 6.00 Weight (Pounds): 106 Objective PHYSICAL EXAMINATION: VITAL SIGNS: Have been reviewed. HEENT: PERRLA. NECK: Supple. No lymphadenopathy. CHEST: Clear to auscultation. CARDIOVASCULAR: Regular rate and rhythm. No murmurs or extra sounds. GASTROINTESTINAL: Soft, nontender, and nondistended. No organomegaly. EXTREMITIES: No edema. Moves all four extremities. NEUROLOGIC: Sensory intact to light touch. Reflexes are equal on both sides. Bennie Goss MD Nov 17, 2018 21:46
[2018-11-18] VITALS: BP 118/80
[2018-11-18 03:58] VITALS: BP 114/72
--- NOTE | 2018-11-18 07:08 | Neurology Progress Note ---
Interim History Interim History ROS Limited/Unobtainable: Yes Complaints: AMS Events: no changes Interim History Remains alert and non focal Objective Physical Exam Last Vital Signs Date Time Temp Pulse Resp B/P (MAP) Pulse Ox O2 Delivery O2 Flow Rate FiO2 11/18/18 03:58 98.1 72 22 114/72 (86) 100 11/17/18 21:00 Room Air General: well developed, well nourished, no acute distress Head: normocophalic, atraumatic Neck: no rigidity EENT: benign Neurologic Exam Mental Status: awake, alert, oriented x4, normal cognition, good mathematical skills, normal recent memory, normal remote memory, preserved visuospatial function Speech: normal speech, no dysarthia Language: normal language, no aphasia Cranial Nerve II: fundus normal, visual francis, no papilledema Cranial Nerves III, IV, : PERRLA, EOMI, pupils Cranial Nerve V: normal facial sensations, temporales function normal, masseters function normal, pterygoids function normal Cranial Nerve VII: no facial asymmetry, normal facial expressions Cranial Nerve VIII: normal hearing, no nystagmus Cranial Nerve IX: normal palate elevation, gag response Cranial Nerve X: no voice hoarseness Cranial Nerve XI: SCM symmetric, trapezii function normal Cranial Nerve XII: tongue midline, no tongue atrophy/fasciculations Motor System: normal muscle tone, strength 5/5, no involuntary movement, no muscle wasting Sensory: normal pinprick, normal light touch, normal position sense, normal graphesthesia Coordination: normal finger to nose bilaterally, normal heel to ramsay bilaterally, negative Romberg test Deep Tendon Reflexes: 2+ bicep (L), 2+ bicep (R), 2+ tricep (L), 2+ tricep (R) , 2+ brachioradialis (L), 2+ brachioradialis (R), 2+ knee (L), 2+ knee (R), 2+ ankle (L), 2+ ankle (R) Stance: normal Gait: stable, normal regular, heel + toe gait Impression/Recommendations Problems: (1) Anemia (2) Pre-syncope (3) Hyponatremia (4) Dehydration (5) Syncope (6) Parkinsonism (7) HTN (hypertension) (8) Hypothyroid (9) Atrial fibrillation Status: stable, unchanged Diagnostic Impression Parkinsonism stable - trail of sinemet as outpatient once metabolic abnormalities resolve PT OT Serjio Sharpe MD Nov 18, 2018 07:08
--- NOTE | 2018-11-18 07:10 | NUR ---
HAND-OFF: Report given to ELLA Melissa. Patient in stable condition.
--- NOTE | 2018-11-18 07:28 | NUR ---
NURSE NOTES: Patient asleep, on room air, no sing of distress and shortness of breath; no sing of chest pain; NO IV Access, MD aware; walker at the bed side and within reach, will assist as needed; bed at lowest position, side rails up x2, breaks engaged; call light within reach; will keep monitoring.
[2018-11-18 08:00] VITALS: BP 124/74
--- NOTE | 2018-11-18 08:23 | NUR ---
CASE MANAGEMENT:REVIEW 11/18/18 SI: ANEMIA. AFIB W/RVR 98.1 72 22 114/72 100% ON RA IS: LISINOPRIL PO QD SYNTHROID PO QD CARDIZEM PO QD LOPRESSOR PO Q12 ELIQUIS PO BID REMERON PO QHS DEPAKOTE PO QD ZYPREXA PO QD : MED/SURG STATUS 4 EAST DCP: FROM NIKKI NAYAK PLAN: HAS BEEN ON PSYCH MEDS SINCE 11/12/18
[2018-11-18] MEDS: dilTIAZem HCl CD 120mg cap ORAL SCH (08:30)
[2018-11-18] MEDS: Depakote ER 500mg tab ORAL SCH (08:30)
[2018-11-18] MEDS: Lisinopril 20mg tab ORAL SCH (08:31)
[2018-11-18] MEDS: Eliquis 5mg tablet ORAL SCH ×2 (08:31→17:46)
[2018-11-18] MEDS: OLANZapine 10mg tab ORAL SCH ×2 (08:31→20:46)
--- NOTE | 2018-11-18 08:31 | NUR ---
DISCHARGE PLANNING PROVIDED DR HALL WITH PATIENT'S PRE HOSPITALIZATION MEDICATION LIST LEFT [facility] [place] T: [phone] STATING PATIENT HAS BEEN ON HIS PSYCH MEDS SINCE 11/12 AND REQUESTED ASSISTANCE WITH PLACEMENT AMBULATING 200FT WITH WALKER ~ CANNOT RETURN NIKKI NAYAK ASSISTED LIVING WITH WALKER CONTINUE PHYSICAL THERAPY DAILY UNTIL DISCHARGED FROM HOSPITAL
[2018-11-18 12:00] VITALS: BP 103/61
[2018-11-18] MEDS ORDERED: Heparin1,000 units/500ml Premix(Conc:2 units/ml) IV PRN (12:00)
[2018-11-18] MEDS ORDERED: Lidocaine 1% Plain 30 ml INJ PRN (12:00)
--- NOTE | 2018-11-18 12:29 | NUR ---
-NURSE NOTES:. RN called to get a consent from the public guardian of this patient Daily Sequeira at [phone]. I left a voice message regarding the reason for my call, call back number and my name. Charge nurse, Justine is aware. Waiting call back.
--- NOTE | 2018-11-18 13:22 | NUR ---
NURSE NOTES: Patient's public guardian Daily Sequeira called back. She stated that she gonna send us a paper work and the paper should be file by ordering MD and pscy . Daily Sequeira said that she doesn't have authority to give consent on invasive procedures and she said she can consent on psychiatrist procedures only. Charge nurse, Justine spoke to Daily Sequeira and CN gave Daily Sequeira our fax number. Waiting for paper from Daily Sequeira.
--- NOTE | 2018-11-18 15:27 | NUR ---
P.T Note: Pt refused to participate for P.T today despite encouragement.
[2018-11-18 16:00] VITALS: BP 118/68
--- NOTE | 2018-11-18 16:13 | Hematology/Onc Progress Note ---
Assessment/Plan Assessment/Plan ASSESSMENT AND PLAN: # Anemia of chronic disease due to underlying chronic medical issues, multifactorial --> Anemia workup has been reviewed. Ferritin 83, TIBC 242 --> No evidence of hemolysis is noted, peripheral smear has been reviewed. --> Hgb goal >7. Transfuse prn. --> Epogen or iron at this time is not particularly indicated --> Medications have been reviewed --> hgb trend 14.1-->12.5 # Thrombocytopenia - potential causes multifactorial, evaluate liver and viral etiologies to begin, also could be related to underlying medications patient has received. --> Hep panel and HIV on PRIOR admission was negative --> US abd negative for cirrhosis and hsm --> Peripheral smear ordered to evaluate for blasts/schistocytes, none noted --> abx and other meds have been reviewed --> ok for ppx if plt >50k w/ either heparin or lovenox --> Transfuse if Plt < 20k and fever, or if Plt < 10k without fever --> Plt trend 118-->169k-->187k # Atelectasis, Optimize pulmonary hygiene/mobilize as tolerated --> on cxr appears stable --> per pulm # Paroxysmal AFib, cardiology recs # Hypertension. # Hypothyroidism. # Lactic acidosis, resolved. # MACARENA, resolved. The timing of this note does not necessarily reflect the time of the patient was seen. Greatly appreciate consultation! Subjective Constitutional: Denies: no symptoms, chills, fever, malaise, weakness, other Cardiovascular: Denies: no symptoms, chest pain, edema, irregular heart rate, lightheadedness, palpitations, syncope, other Respiratory: Denies: no symptoms, cough, shortness of breath, SOB with excertion, SOB at rest, sputum, wheezing, other Gastrointestinal/Abdominal: Denies: no symptoms, abdomen distended, abdominal pain, black stools, tarry stools, blood in stool, constipated, diarrhea, difficulty swallowing, nausea, poor appetite, poor fluid intake, rectal bleeding , vomiting, other Genitourinary: Denies: no symptoms, burning, discharge, frequency, flank pain, hematuria, incontinence, pain, urgency, other Neurologic/Psychiatric: Denies: no symptoms, anxiety, depressed, emotional problems, headache, numbness, paresthesia, pre-existing deficit, seizure, tingling, tremors, weakness, other Endocrine: Denies: no symptoms, excessive sweating, flushing, intolerance to cold, intolerance to heat, increased hunger, increased thirst, increased urine, unexplained weight gain, unexplained weight loss, other Hematologic/Lymphatic: Denies: no symptoms, anemia, easy bleeding, easy bruising, adenopathy, other Allergies: Coded Allergies: RISPERIDONE (Unverified Allergy, Unknown, 07/04/18) ZIPRASIDONE (Verified Allergy, Unknown, 06/30/18) Uncoded Allergies: RESPERIDONE (Allergy, Unknown, 06/30/18) Subjective 11/06: Pt resting in bed. No acute distress. DC planning. 11/08: Pt asleep in bed. No acute events. 11/10: Pt stable, no signs of acute distress or SOB. Venous duplex negative. 11/11: Pt resting in bed. Afebrile, no sob. MRI brain pending. 11/12: Pt in bed, sleeping. No respiratory distress noted. DC planning. 11/13: Pt awake and alert, refused morning meds. No signs of SOB or pain observed. Plt count significantly improved overnight. 11/15: Pt denies pain, no complaints of dyspnea 11/17: Pt resting in bed no chest pain or dyspnea, no other complaints 11/18: unable to place picc given do not have consent Objective Objective Current Medications Medications (Trade) Dose Ordered Sig/Eduardo Route PRN Reason Start Time Stop Time Status Last Admin Dose Admin Apixaban (Eliquis) 5 mg BID ORAL 11/07/18 18:00 12/05/18 08:59 11/18/18 08:31 Chlorhexidine Gluconate (Caitlin-Hex 2%) 1 applic DAILY@1999 TOPIC 11/18/18 20:00 12/18/18 19:59 Diltiazem HCl (Cardizem CD) 120 mg DAILY ORAL 11/09/18 09:00 12/09/18 08:59 11/18/18 08:30 Divalproex Sodium (Depakote ER) 1,500 mg DAILY ORAL 11/12/18 09:00 12/12/18 08:59 11/18/18 08:30 Heparin Sodium/ Sodium Chloride (Heparin 1000 units/500ml Premix) 1,000 unit ONCE PRN IV PICC LINE 11/18/18 12:00 11/19/18 23:59 Hydralazine HCl (Apresoline) 50 mg QIDPRN PRN ORAL HTN SBP >155 11/07/18 19:30 12/07/18 19:29 11/09/18 16:23 Levothyroxine Sodium (Synthroid) 50 mcg DAILY@0630 ORAL 11/13/18 06:30 12/13/18 06:29 11/18/18 05:45 Lidocaine HCl (Xylocaine 1% 30ml) 30 ml ONCE PRN INJ PICC LINE 11/18/18 12:00 11/19/18 23:59 Lisinopril (Prinivil) 20 mg DAILY ORAL 11/16/18 09:00 12/16/18 08:59 11/18/18 08:31 Lisinopril (Zestril) 10 mg QPM@1800 ORAL 11/15/18 18:00 12/15/18 17:59 11/15/18 17:29 Metoprolol Tartrate (Lopressor) 100 mg Q12HR ORAL 11/07/18 21:00 12/05/18 18:59 11/18/18 08:31 Mirtazapine (Remeron) 30 mg BEDTIME ORAL 11/12/18 21:00 12/12/18 20:59 11/17/18 21:09 Olanzapine (ZyPREXA) 30 mg DAILY ORAL 11/12/18 09:00 12/12/18 08:59 11/18/18 08:31 Sodium Chloride 1,000 ml @ 75 mls/hr [id number] IV 11/18/18 12:00 12/18/18 11:59 Last 24 Hour Vital Signs Date Time Temp Pulse Resp B/P (MAP) Pulse Ox O2 Delivery O2 Flow Rate FiO2 11/18/18 12:00 98.4 65 18 103/61 (75) 96 11/18/18 09:00 Room Air 11/18/18 08:31 124/74 11/18/18 08:31 64 124/74 11/18/18 08:30 64 124/74 11/18/18 08:00 97.7 64 18 124/74 (91) 95 11/18/18 03:58 98.1 72 22 114/72 (86) 100 11/18/18 00:00 98.1 70 18 118/80 (93) 96 11/17/18 21:10 88 102/87 11/17/18 21:00 Room Air 11/17/18 20:00 98.1 88 18 102/87 (92) 96 11/17/18 17:50 110/67 11/17/18 15:56 97.9 77 20 110/67 (81) 96 11/17/18 12:00 97.7 72 18 95/55 (68) 96 11/17/18 09:00 Room Air 11/17/18 09:00 66 92/41 11/17/18 09:00 66 92/41 11/17/18 09:00 66 77 88 11/17/18 08:00 97.4 66 20 92/41 (58) 97 11/17/18 04:00 97.5 59 18 112/64 (80) 99 11/17/18 00:00 98.2 64 18 104/56 (72) 95 11/16/18 21:00 Room Air 11/16/18 21:00 62 103/63 11/16/18 20:45 62 103/63 (76) 11/16/18 20:00 98.1 58 17 88/42 (57) 96 11/16/18 18:00 90/58 Intake and Output 11/17/18 11/18/18 19:00 07:00 Intake Total 240 ml 240 ml Balance 240 ml 240 ml Intake Oral 240 ml 240 ml # Voids 3 1 Labs Test 11/16/18 06:10 White Blood Count 6.7 K/UL (4.8-10.8) Red Blood Count 4.25 M/UL (4.70-6.10) Hemoglobin 12.5 G/DL (14.2-18.0) Hematocrit 37.6 % (42.0-52.0) Mean Corpuscular Volume 88 FL (80-99) Mean Corpuscular Hemoglobin 29.5 PG (27.0-31.0) Mean Corpuscular Hemoglobin Concent 33.3 G/DL (32.0-36.0) Red Cell Distribution Width 16.1 % (11.6-14.8) Platelet Count 175 K/UL (150-450) Mean Platelet Volume 6.6 FL (6.5-10.1) Neutrophils (%) (Auto) 44.7 % (45.0-75.0) Lymphocytes (%) (Auto) 39.5 % (20.0-45.0) Monocytes (%) (Auto) 10.8 % (1.0-10.0) Eosinophils (%) (Auto) 3.7 % (0.0-3.0) Basophils (%) (Auto) 1.4 % (0.0-2.0) Sodium Level 138 MMOL/L (136-145) Potassium Level 4.1 MMOL/L (3.5-5.1) Chloride Level 101 MMOL/L (98-107) Carbon Dioxide Level 32 MMOL/L (21-32) Anion Gap 6 mmol/L (5-15) Blood Urea Nitrogen 48 mg/dL (7-18) Creatinine 1.3 MG/DL (0.55-1.30) Estimat Glomerular Filtration Rate 55.4 mL/min (>60) Glucose Level 84 MG/DL (74-106) Calcium Level 9.3 MG/DL (8.5-10.1) Vitamin B12 Level 1040 PG/ML (193-986) Thyroid Stimulating Hormone (TSH) 2.788 uiU/mL (0.358-3.740) Height (Feet): 5 Height (Inches): 6.00 Weight (Pounds): 110 Objective PHYSICAL EXAMINATION: VITAL SIGNS: Have been reviewed. HEENT: PERRLA. NECK: Supple. No lymphadenopathy. CHEST: Clear to auscultation. CARDIOVASCULAR: Regular rate and rhythm. No murmurs or extra sounds. GASTROINTESTINAL: Soft, nontender, and nondistended. No organomegaly. EXTREMITIES: No edema. Moves all four extremities. NEUROLOGIC: Sensory intact to light touch. Reflexes are equal on both sides. Bennie Goss MD Nov 18, 2018 16:13
[2018-11-18] MEDS: Lisinopril 10mg tab ORAL SCH (17:46)
--- NOTE | 2018-11-18 19:30 | Progress Note ---
DATE: 11/18/2018 SUBJECTIVE: The patient is withdrawn and isolative. He has depressed mood, anhedonia, worthlessness, hopelessness, memory impairment. I was asked by Dr. Dodge to see this patient. The patient needs prompting to eat. MENTAL STATUS EXAMINATION: The patient is alert, oriented times self. Minimally verbal, weak, has psychomotor retardation. Mood is dysphoric. Affect is constricted. Congruent mood. Thought process is concrete. Thought content, no suicidal or homicidal ideations. ASSESSMENT: 1. Major depressive disorder. 2. Cognitive impairment. PLAN: 1. We will continue current medication. 2. Provide the patient reality orientation and supportive therapy. Anna Mathew M.D. DR: Fuad JOB#: [id number] CC:
--- NOTE | 2018-11-18 19:49 | NUR ---
HAND-OFF: Report given to ELLA Diaz.
[2018-11-18 20:00] VITALS: BP 99/61
[2018-11-18] MEDS: Dyna-Hex 2% Top Sol 2oz TOPIC SCH (20:00)
--- NOTE | 2018-11-18 20:03 | NUR ---
NURSE NOTES: Pt is in bed, awake and verbal. No acute distress noted. Last shift unsuccessful to obtain consent for PICC line placement from public guardian on file. Public guardian is fax over some paper works to be signed by doctors. Awaiting for the fax. PICC line is scheduled for 11/19/18. Pt drank a bottle of ensure. Pt was provided water and juice. Pt reoriented. Fall precaution in place. Pt is instructed to call for assistance before getting out of bed. Bed alarm on. Bed locked low in position,side rails up and call light within reach. Pt will be monitored.
--- NOTE | 2018-11-18 23:00 | General Progress Note ---
Assessment/Plan Status: stable, unchanged Assessment/Plan: 63 y/o man with hx of paroxysmal atrial fibrillation, presented to the hospital with pre-syncope, found to have rapid atrial fibrillation. #Paroxysmal Atrial Fibrillation #Atrial fibrillation with RVR - Cont beta blockers, rate control - Cont NOAC.. - echo did not show any remarkable changes - Apprec cardiology recs #Anemia due to chronic illness #Thrombocytopenia - Hgb and platelet count appeared to be at baseline, seen by Hematology, no new changes recommended #unstable gait -cont PT #Behavorial disorder -psych meds restarted -psychiatry consulted time of note may not reflect time of encounter Subjective Date patient seen: Nov 18, 2018 Allergies: Coded Allergies: RISPERIDONE (Unverified Allergy, Unknown, 07/04/18) ZIPRASIDONE (Verified Allergy, Unknown, 06/30/18) Uncoded Allergies: RESPERIDONE (Allergy, Unknown, 06/30/18) Subjective Pt with unstable gait, cont PT daily. No chest pain or dyspnea, no other complaints, no tele events. Refused MRI, appetite improved today, took meds this am, BP improved, more interactive today, ambulating Objective Last 24 Hour Vital Signs Date Time Temp Pulse Resp B/P (MAP) Pulse Ox O2 Delivery O2 Flow Rate FiO2 11/18/18 21:00 Room Air 11/18/18 20:42 58 99/61 11/18/18 20:00 98.3 58 17 99/61 (74) 94 11/18/18 17:46 103/61 11/18/18 16:00 97.8 70 18 118/68 (85) 96 11/18/18 12:00 98.4 65 18 103/61 (75) 96 11/18/18 09:00 Room Air 11/18/18 09:00 69 72 78 11/18/18 08:31 124/74 11/18/18 08:31 64 124/74 11/18/18 08:30 64 124/74 11/18/18 08:00 97.7 64 18 124/74 (91) 95 11/18/18 03:58 98.1 72 22 114/72 (86) 100 11/18/18 00:00 98.1 70 18 118/80 (93) 96 Intake and Output 11/17/18 11/18/18 19:00 07:00 Intake Total 240 ml 240 ml Balance 240 ml 240 ml Intake Oral 240 ml 240 ml # Voids 3 1 Height (Feet): 5 Height (Inches): 6.00 Weight (Pounds): 110 Objective General: alert, cooperative, no distress, appears stated age Head: normocephalic, without obvious abnormality, atraumatic Eyes: conjunctivae/corneas clear. PERRL, EOM's intact Throat: lips, mucosa, and tongue normal. MMM Neck: supple, symmetrical, trachea midline, and no JVD Lungs: clear to auscultation bilaterally Heart: regular rate and rhythm, S1, S2 normal, no murmur, click, rub or gallop Abdomen: soft, non-tender, non-distended, bowel sounds normal; no masses or organomegaly Extremities: extremities normal, atraumatic, no cyanosis or edema Pulses: 2+ and symmetric Skin: skin color, texture, turgor normal; no rashes or lesions Neurologic: grossly normal, no focal deficits Anny Cole MD Nov 18, 2018 23:00
[2018-11-19] VITALS: BP 102/62
[2018-11-19 04:00] VITALS: BP 105/58
--- NOTE | 2018-11-19 04:21 | NUR ---
NURSE NOTES: Pt is in bed, asleep. Vitals stable. Pt was given Ensure nutritional supplement and juice.
--- NOTE | 2018-11-19 07:05 | NUR ---
HAND-OFF: Report given to Hector Abdul RN.Informed to follow up regarding the consent for PICC line placement.
--- NOTE | 2018-11-19 07:28 | NUR ---
NURSE NOTES: Patient awake, eating breakfast; room air, no sing of distress and shortness of breath; NO IV Access; bed at lowest position, side rails up x2, breaks engaged; walker within reach; call light within reach; will keep monitoring.
[2018-11-19 08:00] VITALS: BP 133/77
[2018-11-19 08:23] LABS: BASOPHILS % (AUTO) 1.1 % (0.0-2.0); EOSINOPHILS % (AUTO) 5.2 % (0.0-3.0); HEMATOCRIT 37.4 % (42.0-52.0); HEMOGLOBIN 12.3 G/DL (14.2-18.0); LYMPHOCYTES % (AUTO) 43.3 % (20.0-45.0); MEAN CORPUSCULAR VOLUME 89 FL (80-99); MONOCYTES % (AUTO) 9.2 % (1.0-10.0); NEUTROPHILS % (AUTO) 41.2 % (45.0-75.0); PLATELET COUNT 152 K/UL (150-450); RED BLOOD COUNT 4.22 M/UL (4.70-6.10); RED CELL DISTRIBUTION WIDTH 15.8 % (11.6-14.8); WHITE BLOOD COUNT 4.6 K/UL (4.8-10.8)
[2018-11-19] MEDS: dilTIAZem HCl CD 120mg cap ORAL SCH (08:23)
[2018-11-19] MEDS: Depakote ER 500mg tab ORAL SCH (08:24)
[2018-11-19] MEDS: Eliquis 5mg tablet ORAL SCH ×2 (08:24→17:26)
[2018-11-19] MEDS: Lisinopril 20mg tab ORAL SCH (08:24)
[2018-11-19 08:42] LABS: ANION GAP 3 mmol/L (5-15); BLOOD UREA NITROGEN 39 mg/dL (7-18); CALCIUM 9.4 MG/DL (8.5-10.1); CARBON DIOXIDE 34 MMOL/L (21-32); CHLORIDE 103 MMOL/L (98-107); CREATININE 1.1 MG/DL (0.55-1.30); POTASSIUM 4.5 MMOL/L (3.5-5.1); SODIUM 140 MMOL/L (136-145)
--- NOTE | 2018-11-19 12:40 | General Progress Note ---
Assessment/Plan Status: stable, unchanged Assessment/Plan: 63 y/o man with hx of paroxysmal atrial fibrillation, presented to the hospital with pre-syncope, found to have rapid atrial fibrillation. #Paroxysmal Atrial Fibrillation #Atrial fibrillation with RVR - Cont beta blockers, rate control - Cont NOAC.. - echo did not show any remarkable changes - Apprec cardiology recs #Anemia due to chronic illness #Thrombocytopenia - Hgb and platelet count appeared to be at baseline, seen by Hematology, no new changes recommended #unstable gait -cont PT #Behavorial disorder -psych meds restarted -psychiatry consulted time of note may not reflect time of encounter Subjective Date patient seen: Nov 19, 2018 Allergies: Coded Allergies: RISPERIDONE (Unverified Allergy, Unknown, 07/04/18) ZIPRASIDONE (Verified Allergy, Unknown, 06/30/18) Uncoded Allergies: RESPERIDONE (Allergy, Unknown, 06/30/18) Subjective Pt with unstable gait, cont PT daily. No chest pain or dyspnea, no other complaints, no tele events. Refused MRI, appetite improved today, took meds this am, BP improved, more interactive today, ambulating Objective Last 24 Hour Vital Signs Date Time Temp Pulse Resp B/P (MAP) Pulse Ox O2 Delivery O2 Flow Rate FiO2 11/19/18 09:00 Room Air 11/19/18 08:00 97.1 58 18 133/77 (95) 96 11/19/18 04:00 97.7 58 17 105/58 (74) 94 11/19/18 00:00 98.1 59 16 102/62 (75) 94 11/18/18 21:00 Room Air 11/18/18 20:42 58 99/61 11/18/18 20:00 98.3 58 17 99/61 (74) 94 11/18/18 17:46 103/61 11/18/18 16:00 97.8 70 18 118/68 (85) 96 Intake and Output 11/18/18 11/19/18 19:00 07:00 Intake Total 600 ml 480 ml Balance 600 ml 480 ml Intake Oral 600 ml 480 ml # Voids 3 2 # Bowel Movements 1 Laboratory Tests 11/19/18 06:54: White Blood Count 4.6L, Red Blood Count 4.22L, Hemoglobin 12.3L, Hematocrit 37.4L, Mean Corpuscular Volume 89, Mean Corpuscular Hemoglobin 29.3, Mean Corpuscular Hemoglobin Concent 33.0, Red Cell Distribution Width 15.8H, Platelet Count 152, Mean Platelet Volume 6.7, Neutrophils (%) (Auto) 41.2L, Lymphocytes (%) (Auto) 43.3, Monocytes (%) (Auto) 9.2, Eosinophils (%) (Auto) 5.2H, Basophils (%) (Auto) 1.1, Sodium Level 140, Potassium Level 4.5, Chloride Level 103, Carbon Dioxide Level 34H, Anion Gap 3L, Blood Urea Nitrogen 39H, Creatinine 1.1, Estimat Glomerular Filtration Rate > 60, Glucose Level 78, Calcium Level 9.4 Height (Feet): 5 Height (Inches): 6.00 Weight (Pounds): 110 Objective General: alert, cooperative, no distress, appears stated age Head: normocephalic, without obvious abnormality, atraumatic Eyes: conjunctivae/corneas clear. PERRL, EOM's intact Throat: lips, mucosa, and tongue normal. MMM Neck: supple, symmetrical, trachea midline, and no JVD Lungs: clear to auscultation bilaterally Heart: regular rate and rhythm, S1, S2 normal, no murmur, click, rub or gallop Abdomen: soft, non-tender, non-distended, bowel sounds normal; no masses or organomegaly Extremities: extremities normal, atraumatic, no cyanosis or edema Pulses: 2+ and symmetric Skin: skin color, texture, turgor normal; no rashes or lesions Neurologic: grossly normal, no focal deficits Anny Cole MD Nov 19, 2018 12:40
[2018-11-19 16:00] VITALS: BP 104/70
--- NOTE | 2018-11-19 16:23 | NUR ---
CASE MANAGEMENT:REVIEW 11/19/18 SI: ANEMIA. AFIB W/RVR T 98.1 HR 81 RR 18 B/P 104/70 SATS 98% ON RA WBC 4.6 BUN 39 IS: LISINOPRIL PO QD SYNTHROID PO QD CARDIZEM PO QD LOPRESSOR PO Q12 ELIQUIS PO BID REMERON PO QHS DEPAKOTE PO QD ZYPREXA PO QD : MED/SURG STATUS 4 EAST DCP: FROM NIKKI NAYAK
[2018-11-19] MEDS: Lisinopril 10mg tab ORAL SCH (17:26)
--- NOTE | 2018-11-19 18:51 | Neurology Progress Note ---
Interim History Interim History ROS Limited/Unobtainable: Yes Complaints: AMS Events: no changes Interim History remains unsteady Review of Systems All Systems: reviewed and negative except above Objective Physical Exam Last Vital Signs Date Time Temp Pulse Resp B/P (MAP) Pulse Ox O2 Delivery O2 Flow Rate FiO2 11/19/18 17:26 104/70 11/19/18 16:00 98.1 81 18 98 11/19/18 09:00 Room Air Laboratory Tests Test 11/19/18 06:54 White Blood Count 4.6 K/UL (4.8-10.8) L Red Blood Count 4.22 M/UL (4.70-6.10) L Hemoglobin 12.3 G/DL (14.2-18.0) L Hematocrit 37.4 % (42.0-52.0) L Mean Corpuscular Volume 89 FL (80-99) Mean Corpuscular Hemoglobin 29.3 PG (27.0-31.0) Mean Corpuscular Hemoglobin Concent 33.0 G/DL (32.0-36.0) Red Cell Distribution Width 15.8 % (11.6-14.8) H Platelet Count 152 K/UL (150-450) Mean Platelet Volume 6.7 FL (6.5-10.1) Neutrophils (%) (Auto) 41.2 % (45.0-75.0) L Lymphocytes (%) (Auto) 43.3 % (20.0-45.0) Monocytes (%) (Auto) 9.2 % (1.0-10.0) Eosinophils (%) (Auto) 5.2 % (0.0-3.0) H Basophils (%) (Auto) 1.1 % (0.0-2.0) Sodium Level 140 MMOL/L (136-145) Potassium Level 4.5 MMOL/L (3.5-5.1) Chloride Level 103 MMOL/L (98-107) Carbon Dioxide Level 34 MMOL/L (21-32) H Anion Gap 3 mmol/L (5-15) L Blood Urea Nitrogen 39 mg/dL (7-18) H Creatinine 1.1 MG/DL (0.55-1.30) Estimat Glomerular Filtration Rate > 60 mL/min (>60) Glucose Level 78 MG/DL (74-106) Calcium Level 9.4 MG/DL (8.5-10.1) General: well developed, well nourished, no acute distress Head: normocophalic, atraumatic Neck: no rigidity EENT: benign Neurologic Exam Mental Status: awake, alert, oriented x4, normal cognition, good mathematical skills, normal recent memory, normal remote memory, preserved visuospatial function Speech: normal speech, no dysarthia Language: normal language, no aphasia Cranial Nerve II: fundus normal, visual francis, no papilledema Cranial Nerves III, IV, : PERRLA, EOMI, pupils Cranial Nerve V: normal facial sensations, temporales function normal, masseters function normal, pterygoids function normal Cranial Nerve VII: no facial asymmetry, normal facial expressions Cranial Nerve VIII: normal hearing, no nystagmus Cranial Nerve IX: normal palate elevation, gag response Cranial Nerve X: no voice hoarseness Cranial Nerve XI: SCM symmetric, trapezii function normal Cranial Nerve XII: tongue midline, no tongue atrophy/fasciculations Motor System: normal muscle tone, strength 5/5, no involuntary movement, no muscle wasting Sensory: normal pinprick, normal light touch, normal position sense, normal graphesthesia Coordination: normal finger to nose bilaterally, normal heel to ramsay bilaterally, negative Romberg test Deep Tendon Reflexes: 2+ bicep (L), 2+ bicep (R), 2+ tricep (L), 2+ tricep (R) , 2+ brachioradialis (L), 2+ brachioradialis (R), 2+ knee (L), 2+ knee (R), 2+ ankle (L), 2+ ankle (R) Stance: normal Gait: stable, normal regular, heel + toe gait Impression/Recommendations Problems: (1) Anemia (2) Pre-syncope (3) Hyponatremia (4) Dehydration (5) Syncope (6) Parkinsonism (7) HTN (hypertension) (8) Hypothyroid (9) Atrial fibrillation Status: stable, unchanged Diagnostic Impression Parkinsonism stable - trail of sinemet as outpatient once metabolic abnormalities resolve PT OT Cont Serjio De La Torre MD Nov 19, 2018 18:51
--- NOTE | 2018-11-19 19:55 | NUR ---
HAND-OFF: Report given to ELLA Diaz.
[2018-11-19 20:00] VITALS: BP 97/58
[2018-11-19] MEDS: Dyna-Hex 2% Top Sol 2oz TOPIC SCH (20:00)
--- NOTE | 2018-11-19 20:21 | NUR ---
NURSE NOTES: Pt is in bed, asleep. No acute distress noted. Pt is eating and drinking better. Pt states feeling better. Pt is asked to call for assistance before getting out of bed. bed locked low in position,side rail sup and maría light within reach. Bed alarm on. Fall precaution in place.
[2018-11-19] MEDS: OLANZapine 10mg tab ORAL SCH (21:37)
[2018-11-20] VITALS: BP 99/59
--- NOTE | 2018-11-20 00:15 | Progress Note ---
DATE: 11/19/2018 SUBJECTIVE: The patient is in bed, in no acute distress. Calm and cooperative. No behavior issues. Encouraged him to eat. MENTAL STATUS EXAMINATION: The patient is alert, oriented to time, self, place, and disoriented to date. Mood is neutral. Affect is flat. Thought process, concrete. Thought content, no suicidal or homicidal ideation. ASSESSMENT: Stable. PLAN: We will continue current medications. Provide the patient with reality orientation and supportive therapy. Anna Mathew M.D. DR: CAT JOB#: [id number] CC:
--- NOTE | 2018-11-20 03:33 | NUR ---
NURSE NOTES: Pt is in bed, asleep. No acute distress noted. RR 16.
--- NOTE | 2018-11-20 04:00 | NUR ---
NURSE NOTES: Pt refused 0400AM vitals signs.
--- NOTE | 2018-11-20 05:30 | NUR ---
NURSE NOTES: Pt refused to have blood drawn for labs now, financial services officer to come back later.
--- NOTE | 2018-11-20 07:15 | NUR ---
HAND-OFF: Report given to Mai Lozada LVN.
[2018-11-20 08:00] VITALS: BP 101/67
--- NOTE | 2018-11-20 08:15 | NUR ---
NURSE NOTES: Pt is in bed, resting comfortably. No acute distress noted. explained the importance of eating and drinking adequate amount of fluids. Instructed to utilize call light for assistance. bed locked low in position, siderails up and maría light within reach. Bed alarm on. Fall precaution observed. will cont to monitor
[2018-11-20] MEDS: dilTIAZem HCl CD 120mg cap ORAL SCH (08:52)
[2018-11-20] MEDS: Lisinopril 20mg tab ORAL SCH (08:52)
[2018-11-20] MEDS: Depakote ER 500mg tab ORAL SCH (08:57)
[2018-11-20] MEDS: Eliquis 5mg tablet ORAL SCH ×2 (08:58→17:29)
[2018-11-20 12:00] VITALS: BP 96/66
--- NOTE | 2018-11-20 12:58 | Neurology Progress Note ---
Interim History Interim History ROS Limited/Unobtainable: Yes Complaints: AMS Events: no changes Interim History tremors improved not agitated Objective Physical Exam Last Vital Signs Date Time Temp Pulse Resp B/P (MAP) Pulse Ox O2 Delivery O2 Flow Rate FiO2 11/20/18 12:00 97.3 103 17 96/66 (76) 96 11/20/18 09:00 Room Air General: well developed, well nourished, no acute distress Head: normocophalic, atraumatic Neck: no rigidity EENT: benign Neurologic Exam Mental Status: awake, alert, oriented x4, normal cognition, good mathematical skills, normal recent memory, normal remote memory, preserved visuospatial function Speech: normal speech, no dysarthia Language: normal language, no aphasia Cranial Nerve II: fundus normal, visual francis, no papilledema Cranial Nerves III, IV, : PERRLA, EOMI, pupils Cranial Nerve V: normal facial sensations, temporales function normal, masseters function normal, pterygoids function normal Cranial Nerve VII: no facial asymmetry, normal facial expressions Cranial Nerve VIII: normal hearing, no nystagmus Cranial Nerve IX: normal palate elevation, gag response Cranial Nerve X: no voice hoarseness Cranial Nerve XI: SCM symmetric, trapezii function normal Cranial Nerve XII: tongue midline, no tongue atrophy/fasciculations Motor System: normal muscle tone, strength 5/5, no involuntary movement, no muscle wasting Sensory: normal pinprick, normal light touch, normal position sense, normal graphesthesia Coordination: normal finger to nose bilaterally, normal heel to ramsay bilaterally, negative Romberg test Deep Tendon Reflexes: 2+ bicep (L), 2+ bicep (R), 2+ tricep (L), 2+ tricep (R) , 2+ brachioradialis (L), 2+ brachioradialis (R), 2+ knee (L), 2+ knee (R), 2+ ankle (L), 2+ ankle (R) Stance: normal Gait: stable, normal regular, heel + toe gait Impression/Recommendations Problems: (1) Anemia (2) Pre-syncope (3) Hyponatremia (4) Dehydration (5) Syncope (6) Parkinsonism (7) HTN (hypertension) (8) Hypothyroid (9) Atrial fibrillation Status: stable, unchanged Diagnostic Impression Parkinsonism stable - trail of sinemet as outpatient once metabolic abnormalities resolve PT OT Cont NOAC Eskenazi ,Serjio MD Nov 20, 2018 12:58
--- NOTE | 2018-11-20 13:26 | NUR ---
NURSE NOTES: patient refused for orthostatic to be taken this am. will attempt to reinforce later today again. patient needs reinforcement for po intake. patient drinks ensure only and asked what kind of food does he likes to eat and he will say "Don't bother me". Continues to encourage patient. Will cont to monitor.
--- NOTE | 2018-11-20 14:37 | NUR ---
RD ASSESSMENT & RECOMMENDATIONS SEE CARE ACTIVITY FOR COMPLETE ASSESSMENT DAILY ESTIMATED NEEDS: Needs based on cardiac, possible wt loss/ 49kg 30-35 kcals/kg 9600-7932 total kcals 1-1.5 g protein/kg 49-74 g total protein 25-30 mL/kg 8433-1876 total fluid mLs NUTRITION DIAGNOSIS: Increased kcal/prot intake needs R/T wt loss as evidenced by pt w/ possible significant wt loss of 23lbs/17.5% in 4 months, currently w/ poor and variable meal intake CURRENT DIET:CARDIAC, mech soft chopped PO DIET RECOMMENDATIONS: Liberalized REGULAR w/ poor and variable PO intake ADDITIONAL RECOMMENDATIONS: * Calibrated bedscale wt or standing wt of accurate CBW * Weekly wt monitoring given possible recent wt loss * Ensure Enlive TID w/ meals (350kcal/20g prot per bottle) * MVI x 1 as supplement * Monitor lytes, replete as needed * IVF w/ IV access: BUN elev * Vit D 1000IU daily (low Vit D25=29)
--- NOTE | 2018-11-20 15:27 | NUR ---
P. T NOTE: P.T ATTEMPTED HOWEVER PATIENT REFUSED TO PARTICIPATE DESPITE ENCOURAGEMENT FROM SISTER AND THERAPIST. WILL REATTEMPT TOMORROW.
[2018-11-20 16:00] VITALS: BP 108/63
--- NOTE | 2018-11-20 16:28 | NUR ---
NURSE NOTES: WAS ABLE TO REINSERTED IV ON RIGHT F/A AND RECONNECTED THE IVF ORDERED.
--- NOTE | 2018-11-20 16:29 | NUR ---
NURSE NOTES: PATIENT REMAINED REFUSED FOR THE ORTHOSTATIC V/S TODAY. WILL CONT TO MONITOR.
--- NOTE | 2018-11-20 16:41 | NUR ---
CASE MANAGEMENT:REVIEW 11/20/18 SI: ANEMIA. AFIB W/RVR 97.3 103 17 96/66 96% ON RA IS: IVF@75/HR DEPAKOTE 500MG PO QD ZYPREXA 30MG PO QHS NEURONTIN 100MG PO QHS REMERON 30MG PO QHS LISINOPRIL PO QD SYNTHROID PO QD CARDIZEM PO QD LOPRESSOR PO Q12 ELIQUIS PO BID : MED/SURG STATUS 4 EAST DCP: FROM [facility]AY[facility] PLAN: HAS BEEN ON PSYCH MEDS SINCE 11/12/18
[2018-11-20] MEDS: Lisinopril 10mg tab ORAL SCH (17:17)
--- NOTE | 2018-11-20 17:45 | NUR ---
NURSE NOTES: able to obtain orthostatic v/s and recorded. patient ambulate to the bathroom with a walker. remained refused to eat the food on his tray. he only consumed the ensure. will cont to monitor.
--- NOTE | 2018-11-20 17:48 | General Progress Note ---
Assessment/Plan Status: stable, unchanged Assessment/Plan: 63 y/o man with hx of paroxysmal atrial fibrillation, presented to the hospital with pre-syncope, found to have rapid atrial fibrillation. #Paroxysmal Atrial Fibrillation #Atrial fibrillation with RVR - Cont beta blockers, rate control - Cont NOAC.. - echo did not show any remarkable changes - Apprec cardiology recs #Anemia due to chronic illness #Thrombocytopenia - Hgb and platelet count appeared to be at baseline, seen by Hematology, no new changes recommended #unstable gait -cont PT #Behavorial disorder -psych meds restarted -psychiatry consulted time of note may not reflect time of encounter Subjective Date patient seen: Nov 20, 2018 Allergies: Coded Allergies: RISPERIDONE (Unverified Allergy, Unknown, 07/04/18) ZIPRASIDONE (Verified Allergy, Unknown, 06/30/18) Uncoded Allergies: RESPERIDONE (Allergy, Unknown, 06/30/18) Subjective Pt with unstable gait, cont PT daily. No chest pain or dyspnea, no other complaints, no tele events. Refused MRI, appetite improved today, took meds this am, BP improved, more interactive today, ambulating, agreed to IV line insertion Objective Last 24 Hour Vital Signs Date Time Temp Pulse Resp B/P (MAP) Pulse Ox O2 Delivery O2 Flow Rate FiO2 11/20/18 17:43 107 90 105 11/20/18 17:17 108/63 11/20/18 16:00 97.3 98 18 108/63 (78) 95 11/20/18 12:00 97.3 103 17 96/66 (76) 96 11/20/18 09:00 107 90 105 11/20/18 09:00 Room Air 11/20/18 08:53 81 101/62 11/20/18 08:52 101/62 11/20/18 08:52 81 101/62 11/20/18 08:00 97.4 81 17 101/67 (78) 95 11/20/18 00:00 97.8 97 19 99/59 (72) 96 11/19/18 21:00 98 97/58 11/19/18 21:00 Room Air 11/19/18 20:00 97.9 98 19 97/58 (71) 98 Intake and Output 11/19/18 11/20/18 19:00 07:00 Intake Total 720 ml Balance 720 ml Intake Oral 720 ml # Voids 3 2 Height (Feet): 5 Height (Inches): 6.00 Weight (Pounds): 110 Objective General: alert, cooperative, no distress, appears stated age Head: normocephalic, without obvious abnormality, atraumatic Eyes: conjunctivae/corneas clear. PERRL, EOM's intact Throat: lips, mucosa, and tongue normal. MMM Neck: supple, symmetrical, trachea midline, and no JVD Lungs: clear to auscultation bilaterally Heart: regular rate and rhythm, S1, S2 normal, no murmur, click, rub or gallop Abdomen: soft, non-tender, non-distended, bowel sounds normal; no masses or organomegaly Extremities: extremities normal, atraumatic, no cyanosis or edema Pulses: 2+ and symmetric Skin: skin color, texture, turgor normal; no rashes or lesions Neurologic: grossly normal, no focal deficits Anny Cole MD Nov 20, 2018 17:47
--- NOTE | 2018-11-20 19:14 | NUR ---
NURSE NOTES: RECEIVED PATIENT LYING IN BED, AWAKE, ALERT/ORIENTED TO PERSON/PLACE,DENIES PAIN, IV SITE INTACT TO RIGHT FOREARM/GAUGE 22, TOLERATING IV FLUIDS, NO REDNESS/SWELLING NOTED TO SITE. NO SIGNS AND SYMPTOMS OF ACUTE CARDIO RESPIRATORY DISTRESS/SHORTNESS OF BREATH, DENIES CHEST PAIN, NO EDEMA NOTED. ABDOMEN SOFT/NON DISTENDED/AUDIBLE BOWEL SOUNDS, NO REPORT OF N/V/D. SIDE RAILS UP X3/BED IN LOWEST POSITION FOR SAFETY. CALL LIGHT WITHIN REACH. NAD.
--- NOTE | 2018-11-20 19:17 | NUR ---
HAND-OFF: Report given to [place].
[2018-11-20 20:00] VITALS: BP 98/63
[2018-11-20] MEDS: Dyna-Hex 2% Top Sol 2oz TOPIC SCH (20:00)
[2018-11-20] MEDS: OLANZapine 10mg tab ORAL SCH (21:28)
--- NOTE | 2018-11-20 22:55 | NUR ---
HAND-OFF: Report given to LILLIAN CHAPMAN.
--- NOTE | 2018-11-20 22:55 | NUR ---
NURSE NOTES:Patient received from Mecca SNYDER . Patient in bed .A/A/OX2 by name and place only . patient denies any pain and no s/s of distress noted . Patient refused new IV line from the report. Explained to patient the risk and benefits . Patient still refusing .Explained the important of eating and drinking adequate amount of fluids Steve LEHMAN Notified and aware. orthostatic vital sign and recorded . Patient ambulate with walker . Patient instructed to uses call light when needed . bed in low position . Bed alarm on. Addendum: 11/21/18 at 0346 by ADELA GARCIA LVN Patient transfer from 401 Bed 1 to 311 bed 1. will continue to monitor.
[2018-11-21] VITALS (9 sets, daily range): BP systolic 94–120; BP diastolic 60–84
--- NOTE | 2018-11-21 00:30 | Progress Note ---
DATE: 11/20/2018 SUBJECTIVE: The patient remains the same. Mental condition is unchanged since previous encounter. The patient was transferred to the third floor. Presents with depressed mood, low energy. Appetite is slightly improved. MENTAL STATUS EXAMINATION: The patient is having psychomotor retardation. Low energy. Mood is depressed. Affect is constricted, congruent mood. Thought process is concrete. Thought content, no suicidal or homicidal ideation. ASSESSMENT: Stable. PLAN: 1. The patient will be continued on current medications. 2. Provide the patient reality orientation and supportive therapy. Anna Mathew M.D. DR: JUAN JOB#: [id number] CC:
--- NOTE | 2018-11-21 06:00 | NUR ---
NURSE NOTES:Patient refused to take his Synthroid medication and obtaining lab work this morning at 06:00 am.Explained to patient risk and benefits.Patient still refusing . Aware and son LEHMAN notified and aware .will continue to monitor.
--- NOTE | 2018-11-21 07:20 | NUR ---
NURSE NOTES: Report received from Cathi SNYDER, rounds made. Patient sleeping in left lateral position, in bed. No distress on RA, no IV access at this time. Call light in reach, bed in lowest position, will continue to monitor.
--- NOTE | 2018-11-21 07:29 | NUR ---
HAND-OFF: Report given to Maggie Coles patient on stable condition.
--- NOTE | 2018-11-21 08:03 | Hematology/Onc Progress Note ---
Assessment/Plan Assessment/Plan LATE ENTRY FOR 11/20/2018 ASSESSMENT AND PLAN: # Anemia of chronic disease due to underlying chronic medical issues, multifactorial --> Anemia workup has been reviewed. Ferritin 83, TIBC 242 --> No evidence of hemolysis is noted, peripheral smear has been reviewed. --> Hgb goal >7. Transfuse prn. --> Epogen or iron at this time is not particularly indicated --> Medications have been reviewed --> hgb trend 14.1-->12.5 # Thrombocytopenia - potential causes multifactorial, evaluate liver and viral etiologies to begin, also could be related to underlying medications patient has received. --> Hep panel and HIV on PRIOR admission was negative --> US abd negative for cirrhosis and hsm --> Peripheral smear ordered to evaluate for blasts/schistocytes, none noted --> abx and other meds have been reviewed --> ok for ppx if plt >50k w/ either heparin or lovenox --> Transfuse if Plt < 20k and fever, or if Plt < 10k without fever --> Plt trend 118-->169k-->187k # Atelectasis, Optimize pulmonary hygiene/mobilize as tolerated --> on cxr appears stable --> per pulm # Paroxysmal AFib, cardiology recs # Hypertension. # Hypothyroidism. # Lactic acidosis, resolved. # MACARENA, resolved. The timing of this note does not necessarily reflect the time of the patient was seen. Greatly appreciate consultation! Subjective Allergies: Coded Allergies: RISPERIDONE (Unverified Allergy, Unknown, 07/04/18) ZIPRASIDONE (Verified Allergy, Unknown, 06/30/18) Uncoded Allergies: RESPERIDONE (Allergy, Unknown, 06/30/18) Subjective 11/06: Pt resting in bed. No acute distress. DC planning. 11/08: Pt asleep in bed. No acute events. 11/10: Pt stable, no signs of acute distress or SOB. Venous duplex negative. 11/11: Pt resting in bed. Afebrile, no sob. MRI brain pending. 11/12: Pt in bed, sleeping. No respiratory distress noted. DC planning. 11/13: Pt awake and alert, refused morning meds. No signs of SOB or pain observed. Plt count significantly improved overnight. 11/15: Pt denies pain, no complaints of dyspnea 11/17: Pt resting in bed no chest pain or dyspnea, no other complaints 11/18: unable to place picc given do not have consent 11/20: no acute events reported. Objective Objective Current Medications Medications (Trade) Dose Ordered Sig/Eduardo Route PRN Reason Start Time Stop Time Status Last Admin Dose Admin Apixaban (Eliquis) 5 mg BID ORAL 11/07/18 18:00 12/05/18 08:59 11/20/18 17:29 Chlorhexidine Gluconate (Caitlin-Hex 2%) 1 applic DAILY@2000 TOPIC 11/18/18 20:00 12/18/18 19:59 Diltiazem HCl (Cardizem CD) 120 mg DAILY ORAL 11/09/18 09:00 12/09/18 08:59 11/18/18 08:30 Divalproex Sodium (Depakote ER) 500 mg DAILY ORAL 11/19/18 09:00 12/12/18 08:59 11/20/18 08:57 Gabapentin (Neurontin) 100 mg BEDTIME ORAL 11/18/18 21:00 12/18/18 20:59 11/20/18 21:28 Hydralazine HCl (Apresoline) 50 mg QIDPRN PRN ORAL HTN SBP >155 11/07/18 19:30 12/07/18 19:29 11/09/18 16:23 Levothyroxine Sodium (Synthroid) 50 mcg DAILY@0630 ORAL 11/13/18 06:30 12/13/18 06:29 11/20/18 06:46 Lisinopril (Prinivil) 20 mg DAILY ORAL 11/16/18 09:00 12/16/18 08:59 11/18/18 08:31 Lisinopril (Zestril) 10 mg QPM@1800 ORAL 11/15/18 18:00 12/15/18 17:59 11/19/18 17:26 Metoprolol Tartrate (Lopressor) 100 mg Q12HR ORAL 11/07/18 21:00 12/05/18 18:59 11/20/18 21:28 Mirtazapine (Remeron) 30 mg BEDTIME ORAL 11/12/18 21:00 12/12/18 20:59 11/20/18 21:29 Olanzapine (ZyPREXA) 30 mg BEDTIME ORAL 11/18/18 21:00 12/12/18 08:59 11/20/18 21:28 Sodium Chloride 1,000 ml @ 75 mls/hr [id number] IV 11/18/18 12:00 12/18/18 11:59 11/20/18 15:32 Last 24 Hour Vital Signs Date Time Temp Pulse Resp B/P (MAP) Pulse Ox O2 Delivery O2 Flow Rate FiO2 11/21/18 04:00 97.5 98 18 103/68 (80) 96 11/21/18 00:00 96 92 99 11/21/18 00:00 98.0 100 18 98/66 (77) 96 11/20/18 21:32 Room Air 11/20/18 21:28 88 145/81 11/20/18 20:43 Room Air 11/20/18 20:00 97.3 95 18 98/63 (75) 96 11/20/18 17:43 107 90 105 11/20/18 17:17 108/63 11/20/18 16:00 97.3 98 18 108/63 (78) 95 11/20/18 12:00 97.3 103 17 96/66 (76) 96 11/20/18 09:00 107 90 105 11/20/18 09:00 Room Air 11/20/18 08:53 81 101/62 11/20/18 08:52 101/62 11/20/18 08:52 81 101/62 11/20/18 08:00 97.4 81 17 101/67 (78) 95 11/20/18 00:00 97.8 97 19 99/59 (72) 96 11/19/18 21:00 98 97/58 11/19/18 21:00 Room Air 11/19/18 20:00 97.9 98 19 97/58 (71) 98 11/19/18 17:26 104/70 11/19/18 16:00 98.1 81 18 104/70 (81) 98 11/19/18 09:00 58 60 64 11/19/18 09:00 Room Air Intake and Output 11/20/18 11/21/18 19:00 07:00 Intake Total 945 ml 760 ml Balance 945 ml 760 ml Intake Oral 720 ml 760 ml IV Total 225 ml # Voids 2 3 # Bowel Movements 1 1 Labs Test 11/19/18 06:54 White Blood Count 4.6 K/UL (4.8-10.8) Red Blood Count 4.22 M/UL (4.70-6.10) Hemoglobin 12.3 G/DL (14.2-18.0) Hematocrit 37.4 % (42.0-52.0) Mean Corpuscular Volume 89 FL (80-99) Mean Corpuscular Hemoglobin 29.3 PG (27.0-31.0) Mean Corpuscular Hemoglobin Concent 33.0 G/DL (32.0-36.0) Red Cell Distribution Width 15.8 % (11.6-14.8) Platelet Count 152 K/UL (150-450) Mean Platelet Volume 6.7 FL (6.5-10.1) Neutrophils (%) (Auto) 41.2 % (45.0-75.0) Lymphocytes (%) (Auto) 43.3 % (20.0-45.0) Monocytes (%) (Auto) 9.2 % (1.0-10.0) Eosinophils (%) (Auto) 5.2 % (0.0-3.0) Basophils (%) (Auto) 1.1 % (0.0-2.0) Sodium Level 140 MMOL/L (136-145) Potassium Level 4.5 MMOL/L (3.5-5.1) Chloride Level 103 MMOL/L (98-107) Carbon Dioxide Level 34 MMOL/L (21-32) Anion Gap 3 mmol/L (5-15) Blood Urea Nitrogen 39 mg/dL (7-18) Creatinine 1.1 MG/DL (0.55-1.30) Estimat Glomerular Filtration Rate > 60 mL/min (>60) Glucose Level 78 MG/DL (74-106) Calcium Level 9.4 MG/DL (8.5-10.1) Height (Feet): 5 Height (Inches): 6.00 Weight (Pounds): 110 Objective Objective PHYSICAL EXAMINATION: VITAL SIGNS: Have been reviewed. HEENT: PERRLA. NECK: Supple. No lymphadenopathy. CHEST: Clear to auscultation. CARDIOVASCULAR: Regular rate and rhythm. No murmurs or extra sounds. GASTROINTESTINAL: Soft, nontender, and nondistended. No organomegaly. EXTREMITIES: No edema. Moves all four extremities. NEUROLOGIC: Sensory intact to light touch. Reflexes are equal on both sides. Kristen Cruz NP Nov 21, 2018 08:03
--- NOTE | 2018-11-21 08:06 | Hematology/Onc Progress Note ---
Assessment/Plan Assessment/Plan ASSESSMENT AND PLAN: # Anemia of chronic disease due to underlying chronic medical issues, multifactorial --> Anemia workup has been reviewed. Ferritin 83, TIBC 242 --> No evidence of hemolysis is noted, peripheral smear has been reviewed. --> Hgb goal >7. Transfuse prn. --> Epogen or iron at this time is not particularly indicated --> Medications have been reviewed --> hgb trend 14.1-->12.5--> 12.3 # Thrombocytopenia - potential causes multifactorial, evaluate liver and viral etiologies to begin, also could be related to underlying medications patient has received. --> Hep panel and HIV on PRIOR admission was negative --> US abd negative for cirrhosis and hsm --> Peripheral smear ordered to evaluate for blasts/schistocytes, none noted --> abx and other meds have been reviewed --> ok for ppx if plt >50k w/ either heparin or lovenox --> Transfuse if Plt < 20k and fever, or if Plt < 10k without fever --> Plt trend 118-->169k-->187k--> 102K # Atelectasis, Optimize pulmonary hygiene/mobilize as tolerated --> on cxr appears stable --> per pulm # Paroxysmal AFib, per cardiology recs # Hypertension. --> controlled, SBP goal < 140 # Hypothyroidism. # Lactic acidosis, resolved. # MACARENA, resolved. The timing of this note does not necessarily reflect the time of the patient was seen. Greatly appreciate consultation! Subjective Allergies: Coded Allergies: RISPERIDONE (Unverified Allergy, Unknown, 07/04/18) ZIPRASIDONE (Verified Allergy, Unknown, 06/30/18) Uncoded Allergies: RESPERIDONE (Allergy, Unknown, 06/30/18) Subjective 11/06: Pt resting in bed. No acute distress. DC planning. 11/08: Pt asleep in bed. No acute events. 11/10: Pt stable, no signs of acute distress or SOB. Venous duplex negative. 11/11: Pt resting in bed. Afebrile, no sob. MRI brain pending. 11/12: Pt in bed, sleeping. No respiratory distress noted. DC planning. 11/13: Pt awake and alert, refused morning meds. No signs of SOB or pain observed. Plt count significantly improved overnight. 11/15: Pt denies pain, no complaints of dyspnea 11/17: Pt resting in bed no chest pain or dyspnea, no other complaints 11/18: unable to place picc given do not have consent 11/20: no acute events reported. 11/21: pt refused am labs as well as am meds. h/h stable from prior labs. Objective Objective Current Medications Medications (Trade) Dose Ordered Sig/Eduardo Route PRN Reason Start Time Stop Time Status Last Admin Dose Admin Apixaban (Eliquis) 5 mg BID ORAL 11/07/18 18:00 12/05/18 08:59 11/20/18 17:29 Chlorhexidine Gluconate (Caitlin-Hex 2%) 1 applic DAILY@2000 TOPIC 11/18/18 20:00 12/18/18 19:59 Diltiazem HCl (Cardizem CD) 120 mg DAILY ORAL 11/09/18 09:00 12/09/18 08:59 11/18/18 08:30 Divalproex Sodium (Depakote ER) 500 mg DAILY ORAL 11/19/18 09:00 12/12/18 08:59 11/20/18 08:57 Gabapentin (Neurontin) 100 mg BEDTIME ORAL 11/18/18 21:00 12/18/18 20:59 11/20/18 21:28 Hydralazine HCl (Apresoline) 50 mg QIDPRN PRN ORAL HTN SBP >155 11/07/18 19:30 12/07/18 19:29 11/09/18 16:23 Levothyroxine Sodium (Synthroid) 50 mcg DAILY@0630 ORAL 11/13/18 06:30 12/13/18 06:29 11/20/18 06:46 Lisinopril (Prinivil) 20 mg DAILY ORAL 11/16/18 09:00 12/16/18 08:59 11/18/18 08:31 Lisinopril (Zestril) 10 mg QPM@1800 ORAL 11/15/18 18:00 12/15/18 17:59 11/19/18 17:26 Metoprolol Tartrate (Lopressor) 100 mg Q12HR ORAL 11/07/18 21:00 12/05/18 18:59 11/20/18 21:28 Mirtazapine (Remeron) 30 mg BEDTIME ORAL 11/12/18 21:00 12/12/18 20:59 11/20/18 21:29 Olanzapine (ZyPREXA) 30 mg BEDTIME ORAL 11/18/18 21:00 12/12/18 08:59 11/20/18 21:28 Sodium Chloride 1,000 ml @ 75 mls/hr [id number] IV 11/18/18 12:00 12/18/18 11:59 11/20/18 15:32 Last 24 Hour Vital Signs Date Time Temp Pulse Resp B/P (MAP) Pulse Ox O2 Delivery O2 Flow Rate FiO2 11/21/18 04:00 97.5 98 18 103/68 (80) 96 11/21/18 00:00 96 92 99 11/21/18 00:00 98.0 100 18 98/66 (77) 96 11/20/18 21:32 Room Air 11/20/18 21:28 88 145/81 11/20/18 20:43 Room Air 11/20/18 20:00 97.3 95 18 98/63 (75) 96 11/20/18 17:43 107 90 105 11/20/18 17:17 108/63 11/20/18 16:00 97.3 98 18 108/63 (78) 95 11/20/18 12:00 97.3 103 17 96/66 (76) 96 11/20/18 09:00 107 90 105 11/20/18 09:00 Room Air 11/20/18 08:53 81 101/62 11/20/18 08:52 101/62 11/20/18 08:52 81 101/62 11/20/18 08:00 97.4 81 17 101/67 (78) 95 11/20/18 00:00 97.8 97 19 99/59 (72) 96 11/19/18 21:00 98 97/58 11/19/18 21:00 Room Air 11/19/18 20:00 97.9 98 19 97/58 (71) 98 11/19/18 17:26 104/70 11/19/18 16:00 98.1 81 18 104/70 (81) 98 11/19/18 09:00 58 60 64 11/19/18 09:00 Room Air Intake and Output 11/20/18 11/21/18 19:00 07:00 Intake Total 945 ml 760 ml Balance 945 ml 760 ml Intake Oral 720 ml 760 ml IV Total 225 ml # Voids 2 3 # Bowel Movements 1 1 Labs Test 11/19/18 06:54 White Blood Count 4.6 K/UL (4.8-10.8) Red Blood Count 4.22 M/UL (4.70-6.10) Hemoglobin 12.3 G/DL (14.2-18.0) Hematocrit 37.4 % (42.0-52.0) Mean Corpuscular Volume 89 FL (80-99) Mean Corpuscular Hemoglobin 29.3 PG (27.0-31.0) Mean Corpuscular Hemoglobin Concent 33.0 G/DL (32.0-36.0) Red Cell Distribution Width 15.8 % (11.6-14.8) Platelet Count 152 K/UL (150-450) Mean Platelet Volume 6.7 FL (6.5-10.1) Neutrophils (%) (Auto) 41.2 % (45.0-75.0) Lymphocytes (%) (Auto) 43.3 % (20.0-45.0) Monocytes (%) (Auto) 9.2 % (1.0-10.0) Eosinophils (%) (Auto) 5.2 % (0.0-3.0) Basophils (%) (Auto) 1.1 % (0.0-2.0) Sodium Level 140 MMOL/L (136-145) Potassium Level 4.5 MMOL/L (3.5-5.1) Chloride Level 103 MMOL/L (98-107) Carbon Dioxide Level 34 MMOL/L (21-32) Anion Gap 3 mmol/L (5-15) Blood Urea Nitrogen 39 mg/dL (7-18) Creatinine 1.1 MG/DL (0.55-1.30) Estimat Glomerular Filtration Rate > 60 mL/min (>60) Glucose Level 78 MG/DL (74-106) Calcium Level 9.4 MG/DL (8.5-10.1) Height (Feet): 5 Height (Inches): 6.00 Weight (Pounds): 110 Objective Objective PHYSICAL EXAMINATION: VITAL SIGNS: Have been reviewed. HEENT: PERRLA. NECK: Supple. No lymphadenopathy. CHEST: Clear to auscultation. CARDIOVASCULAR: Regular rate and rhythm. No murmurs or extra sounds. GASTROINTESTINAL: Soft, nontender, and nondistended. No organomegaly. EXTREMITIES: No edema. Moves all four extremities. NEUROLOGIC: Sensory intact to light touch. Reflexes are equal on both sides. Kristen Cruz NP Nov 21, 2018 08:06
[2018-11-21] MEDS: Lisinopril 20mg tab ORAL SCH (09:00)
[2018-11-21] MEDS: dilTIAZem HCl CD 120mg cap ORAL SCH ×2 (09:00→11:14)
[2018-11-21] MEDS: Depakote ER 500mg tab ORAL SCH (09:49)
[2018-11-21] MEDS: Eliquis 5mg tablet ORAL SCH ×2 (09:50→18:38)
--- NOTE | 2018-11-21 10:20 | NUR ---
NURSE NOTES: Dr. Wallis notified of orthostatic blood pressure readings. Reviewed eMAR. added parameters for blood pressure meds, see eMAR.
--- NOTE | 2018-11-21 10:23 | General Progress Note ---
Assessment/Plan Status: stable, unchanged Assessment/Plan: Assessment/Plan Status: stable, unchanged Assessment/Plan: 63 y/o man with hx of paroxysmal atrial fibrillation, presented to the hospital with pre-syncope, found to have rapid atrial fibrillation. #Paroxysmal Atrial Fibrillation #Atrial fibrillation with RVR - Cont beta zack and Diltiazem for rate control - holding parameters placed. - Cont NOAC.. - echo did not show any remarkable changes - Apprec cardiology recs # Orthostatic hypotension - Serial Orthostatic vital signs - Monitor OFF IVF and follow up. #Anemia due to chronic illness #Thrombocytopenia - Hgb and platelet count appeared to be at baseline, seen by Hematology, no new changes recommended. Labs in AM #unstable gait -cont PT - PATIENT WILL NEED TO BE WITHOUT FWW in order to return to his LONG TERM. Otherwise, will need new placement. process control manager follow up is needed. SW note for conservator reviewed. #Behavorial disorder -psych meds restarted -psychiatry consulted Subjective ROS Limited/Unobtainable: No Constitutional: Reports: no symptoms HEENT: Reports: no symptoms Cardiovascular: Reports: no symptoms Respiratory: Reports: no symptoms Genitourinary: Reports: no symptoms Neurologic/Psychiatric: Reports: no symptoms Endocrine: Reports: no symptoms Hematologic/Lymphatic: Reports: no symptoms Allergies: Coded Allergies: RISPERIDONE (Unverified Allergy, Unknown, 07/04/18) ZIPRASIDONE (Verified Allergy, Unknown, 06/30/18) Uncoded Allergies: RESPERIDONE (Allergy, Unknown, 06/30/18) Objective Last 24 Hour Vital Signs Date Time Temp Pulse Resp B/P (MAP) Pulse Ox O2 Delivery O2 Flow Rate FiO2 11/21/18 09:40 86 94/62 (73) 11/21/18 09:00 94/62 11/21/18 09:00 86 94/62 11/21/18 09:00 86 94/62 11/21/18 08:00 97.4 90 17 108/76 (87) 97 11/21/18 04:00 97.5 98 18 103/68 (80) 96 11/21/18 00:00 96 92 99 11/21/18 00:00 98.0 100 18 98/66 (77) 96 11/20/18 21:32 Room Air 11/20/18 21:28 88 145/81 11/20/18 20:43 Room Air 11/20/18 20:00 97.3 95 18 98/63 (75) 96 11/20/18 17:43 107 90 105 11/20/18 17:17 108/63 11/20/18 16:00 97.3 98 18 108/63 (78) 95 11/20/18 12:00 97.3 103 17 96/66 (76) 96 Intake and Output 11/20/18 11/21/18 18:59 06:59 Intake Total 945 ml 760 ml Balance 945 ml 760 ml Intake Oral 720 ml 760 ml IV Total 225 ml # Voids 2 3 # Bowel Movements 1 1 Height (Feet): 5 Height (Inches): 6.00 Weight (Pounds): 110 General Appearance: WD/WN, no apparent distress EENT: PERRL/EOMI Neck: non-tender Cardiovascular: normal peripheral pulses, normal rate Respiratory/Chest: lungs clear Abdomen: normal bowel sounds Extremities: normal range of motion, non-tender 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
[2018-11-21] MEDS ORDERED: Lisinopril 20mg tab ORAL SCH (10:40)
[2018-11-21] MEDS: Lisinopril 10mg tab ORAL SCH (18:38)
--- NOTE | 2018-11-21 18:43 | NUR ---
CASE MANAGEMENT: REVIEW SI: A-FIB w/RVR . ORTHOSTATIC HYPOTENSION T 97.7 HR 122 RR 18 BP 104/75 SAT 97% ROOM AIR IS: LOPRESSOR PO Q12HR CARDIZEM PO QD LISINOPRIL PO QHS MED/SURG STATUS DCP: PATIENT IS FROM [facility]
--- NOTE | 2018-11-21 19:25 | NUR ---
NURSE NOTES: Received report from ELLA Serrano.
--- NOTE | 2018-11-21 19:25 | NUR ---
HAND-OFF: Report given to Nora SNYDER.
--- NOTE | 2018-11-21 19:30 | NUR ---
NURSE NOTES: Seen pt in my initial rounding, pt is resting in bed at this time. AAOX2, appears calm and cooperative. no cv c/o noted, call light w/in reach.
[2018-11-21] MEDS: OLANZapine 10mg tab ORAL SCH (21:07)
[2018-11-22] VITALS: BP 91/64
[2018-11-22 04:00] VITALS: BP 115/70
--- NOTE | 2018-11-22 06:30 | Progress Note ---
DATE: 11/21/2018 SUBJECTIVE: The patient is able to answer simple questions. He knows his name, he knows the name of the hospital, poor insight into his current condition. Depressed. Has anhedonia, slightly better today. MENTAL STATUS EXAMINATION: Alert and oriented x2. Mood is dysphoric. Affect is constricted, congruent with mood. Thought process is concrete. Thought content, no suicidal or homicidal ideation. ASSESSMENT: Stable. PLAN: We will continue current medications. Provide the patient with reality orientation and supportive therapy. Anna Mathew M.D. DR: Jena JOB#: [id number] CC:
--- NOTE | 2018-11-22 07:25 | NUR ---
NURSE NOTES: Report received from Nora SNYDER, rounds made. Patient sleeping in left lateral position, answers to name. No distress on RA. No pain. No IV access. Will assess orthostatic BP as ordered. Call light in reach, bed in lowest position. Will continue to monitor.
--- NOTE | 2018-11-22 07:25 | NUR ---
HAND-OFF: Report given to ELLA Serrano.
[2018-11-22 08:09] LABS: BASOPHILS % (AUTO) 1.3 % (0.0-2.0); EOSINOPHILS % (AUTO) 4.8 % (0.0-3.0); HEMATOCRIT 33.5 % (42.0-52.0); LYMPHOCYTES % (AUTO) 43.8 % (20.0-45.0); MEAN CORPUSCULAR VOLUME 90 FL (80-99); MONOCYTES % (AUTO) 10.6 % (1.0-10.0); NEUTROPHILS % (AUTO) 39.4 % (45.0-75.0); PLATELET COUNT 132 K/UL (150-450); RED BLOOD COUNT 3.75 M/UL (4.70-6.10); RED CELL DISTRIBUTION WIDTH 15.8 % (11.6-14.8); WHITE BLOOD COUNT 4.4 K/UL (4.8-10.8)
[2018-11-22 08:33] VITALS: BP 90/60
[2018-11-22 08:51] LABS: ANION GAP 6 mmol/L (5-15); BLOOD UREA NITROGEN 38 mg/dL (7-18); CALCIUM 9.4 MG/DL (8.5-10.1); CARBON DIOXIDE 31 MMOL/L (21-32); CHLORIDE 106 MMOL/L (98-107); CREATININE 1.3 MG/DL (0.55-1.30); POTASSIUM 4.1 MMOL/L (3.5-5.1); SODIUM 143 MMOL/L (136-145)
[2018-11-22] MEDS: Depakote ER 500mg tab ORAL SCH (10:04)
[2018-11-22] MEDS: Eliquis 5mg tablet ORAL SCH ×2 (10:05→18:05)
[2018-11-22] MEDS: dilTIAZem HCl CD 120mg cap ORAL SCH (10:05)
[2018-11-22] MEDS: Lisinopril 20mg tab ORAL SCH (10:07)
[2018-11-22 11:46] VITALS: BP 88/55
--- NOTE | 2018-11-22 14:41 | General Progress Note ---
Assessment/Plan Status: stable, unchanged Assessment/Plan: Assessment/Plan Status: stable, unchanged Assessment/Plan: 63 y/o man with hx of paroxysmal atrial fibrillation, presented to the hospital with pre-syncope, found to have rapid atrial fibrillation. #Paroxysmal Atrial Fibrillation #Atrial fibrillation with RVR - Cont beta zack and Diltiazem for rate control - holding parameters placed. - Cont NOAC.. - echo did not show any remarkable changes - Apprec cardiology recs # Orthostatic hypotension - Serial Orthostatic vital signs - Monitor OFF IVF and follow up. #Anemia due to chronic illness #Thrombocytopenia - Hgb and platelet count appeared to be at baseline, seen by Hematology, no new changes recommended. Labs in AM #unstable gait -continue PT ( patient refused treatment 11/20 and not seen since then by PT ) - PATIENT WILL NEED TO BE WITHOUT FWW in order to return to his [facility]. Otherwise, will need new placement. manager park follow up is needed. SW note for conservator reviewed. #Behavorial disorder -psych meds restarted -psychiatry consulted Subjective ROS Limited/Unobtainable: Yes Allergies: Coded Allergies: RISPERIDONE (Unverified Allergy, Unknown, 07/04/18) ZIPRASIDONE (Verified Allergy, Unknown, 06/30/18) Uncoded Allergies: RESPERIDONE (Allergy, Unknown, 06/30/18) Objective Last 24 Hour Vital Signs Date Time Temp Pulse Resp B/P (MAP) Pulse Ox O2 Delivery O2 Flow Rate FiO2 11/22/18 11:46 98.0 57 19 88/55 (66) 96 11/22/18 10:07 98/60 11/22/18 10:05 97 98/60 11/22/18 09:40 78 97 116 11/22/18 09:00 Room Air 11/22/18 09:00 97 98/60 11/22/18 08:33 98.2 76 18 90/60 (70) 95 11/22/18 04:00 97.6 75 16 115/70 (85) 96 11/22/18 00:00 97.7 76 16 91/64 (73) 95 11/21/18 21:00 87 97/63 11/21/18 21:00 Room Air 11/21/18 20:00 97.6 87 16 97/63 (74) 95 11/21/18 18:38 100/60 11/21/18 18:32 83 100/60 (73) 11/21/18 15:55 97.7 83 19 118/63 (81) 96 Intake and Output 11/21/18 11/22/18 18:59 06:59 Intake Total 948 ml 240 ml Balance 948 ml 240 ml Intake Oral 948 ml 240 ml # Voids 2 3 # Bowel Movements 1 Laboratory Tests 11/22/18 05:45: White Blood Count 4.4L, Red Blood Count 3.75L, Hemoglobin 11.0L, Hematocrit 33.5L, Mean Corpuscular Volume 90, Mean Corpuscular Hemoglobin 29.4, Mean Corpuscular Hemoglobin Concent 32.8, Red Cell Distribution Width 15.8H, Platelet Count 132L, Mean Platelet Volume 6.2L, Neutrophils (%) (Auto) 39.4L, Lymphocytes (%) (Auto) 43.8, Monocytes (%) (Auto) 10.6H, Eosinophils (%) (Auto) 4.8H, Basophils (%) (Auto) 1.3, Sodium Level 143, Potassium Level 4.1, Chloride Level 106, Carbon Dioxide Level 31, Anion Gap 6, Blood Urea Nitrogen 38H, Creatinine 1.3, Estimat Glomerular Filtration Rate 55.4, Glucose Level 141H, Calcium Level 9.4 Height (Feet): 5 Height (Inches): 6.00 Weight (Pounds): 110 General Appearance: WD/WN EENT: PERRL/EOMI Neck: non-tender, normal alignment Cardiovascular: normal peripheral pulses, normal rate, regular rhythm Respiratory/Chest: chest wall non-tender, lungs clear Abdomen: normal bowel sounds 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
--- NOTE | 2018-11-22 14:46 | NUR ---
P.T WEEKLY PROGRESS NOTES: PATIENT DEMONSTRATED POOR PROGRESS DURING THE COURSE OF THERAPY. PROGRESS IS LIMITED BY POOR MOTIVATION AND LACK OF PARTICIPATION DURING THIS PAST WEEK. PATIENT IS INDEPENDENT WITH BED MOBILITIES AND CURRENTLY REQUIRE C[facility]/S[facility] FOR TRANSFERS AND GAIT/AMBULATION ACTIVITIES USING THE FWW. PATIENT CONTINUE TO PRESENT GENERALIZED WEAKNESS DUE TO LACK OF MOBILITY AND DECREASED FOOD INTAKE. WILL CONTINUE WITH POC.
[2018-11-22] MEDS: Lisinopril 10mg tab ORAL SCH (18:06)
[2018-11-22 18:07] VITALS: BP 100/71
--- NOTE | 2018-11-22 19:40 | NUR ---
HAND-OFF: Report given to Andres JARAMILLO.
[2018-11-22 20:00] VITALS: BP 105/73
--- NOTE | 2018-11-22 20:54 | Hematology/Onc Progress Note ---
Assessment/Plan Assessment/Plan ASSESSMENT AND PLAN: # Anemia of chronic disease due to underlying chronic medical issues, multifactorial --> Anemia workup has been reviewed. Ferritin 83, TIBC 242 --> No evidence of hemolysis is noted, peripheral smear has been reviewed. --> Hgb goal >7. Transfuse prn. --> Epogen or iron at this time is not particularly indicated --> Medications have been reviewed --> hgb trend 14.1-->12.5--> 12.3-->11 # Thrombocytopenia - potential causes multifactorial, evaluate liver and viral etiologies to begin, also could be related to underlying medications patient has received. --> Hep panel and HIV on PRIOR admission was negative --> US abd negative for cirrhosis and hsm --> Peripheral smear ordered to evaluate for blasts/schistocytes, none noted --> abx and other meds have been reviewed --> ok for ppx if plt >50k w/ either heparin or lovenox --> Transfuse if Plt < 20k and fever, or if Plt < 10k without fever --> Plt trend 118-->169k-->187k--> 102K # Atelectasis, Optimize pulmonary hygiene/mobilize as tolerated --> on cxr appears stable --> per pulm # Paroxysmal AFib, per cardiology recs # Hypertension. --> controlled, SBP goal < 140 # Hypothyroidism. # Lactic acidosis, resolved. # MACARENA, resolved. The timing of this note does not necessarily reflect the time of the patient was seen. Greatly appreciate consultation! Subjective Allergies: Coded Allergies: RISPERIDONE (Unverified Allergy, Unknown, 07/04/18) ZIPRASIDONE (Verified Allergy, Unknown, 06/30/18) Uncoded Allergies: RESPERIDONE (Allergy, Unknown, 06/30/18) Subjective 11/06: Pt resting in bed. No acute distress. DC planning. 11/08: Pt asleep in bed. No acute events. 11/10: Pt stable, no signs of acute distress or SOB. Venous duplex negative. 11/11: Pt resting in bed. Afebrile, no sob. MRI brain pending. 11/12: Pt in bed, sleeping. No respiratory distress noted. DC planning. 11/13: Pt awake and alert, refused morning meds. No signs of SOB or pain observed. Plt count significantly improved overnight. 11/15: Pt denies pain, no complaints of dyspnea 11/17: Pt resting in bed no chest pain or dyspnea, no other complaints 11/18: unable to place picc given do not have consent 11/20: no acute events reported. 11/21: pt refused am labs as well as am meds. h/h stable from prior labs. 11/22: pt no acute distress. Afebrile, VS reviewed. Objective Objective Current Medications Medications (Trade) Dose Ordered Sig/Eduardo Route PRN Reason Start Time Stop Time Status Last Admin Dose Admin Apixaban (Eliquis) 5 mg BID ORAL 11/07/18 18:00 12/05/18 08:59 11/22/18 18:05 Diltiazem HCl (Cardizem CD) 120 mg DAILY ORAL 11/21/18 10:50 12/21/18 10:49 11/22/18 10:05 Divalproex Sodium (Depakote ER) 500 mg DAILY ORAL 11/19/18 09:00 12/12/18 08:59 11/22/18 10:04 Gabapentin (Neurontin) 100 mg BEDTIME ORAL 11/18/18 21:00 12/18/18 20:59 11/21/18 21:06 Hydralazine HCl (Apresoline) 50 mg QIDPRN PRN ORAL HTN SBP >155 11/07/18 19:30 12/07/18 19:29 11/09/18 16:23 Levothyroxine Sodium (Synthroid) 50 mcg DAILY@0630 ORAL 11/13/18 06:30 12/13/18 06:29 11/22/18 06:18 Lisinopril (Prinivil) 20 mg DAILY ORAL 11/22/18 09:00 12/22/18 08:59 11/22/18 10:07 Lisinopril (Zestril) 10 mg QPM@1800 ORAL 11/15/18 18:00 12/15/18 17:59 11/22/18 18:06 Metoprolol Tartrate (Lopressor) 100 mg Q12HR ORAL 11/21/18 21:00 12/05/18 18:59 Mirtazapine (Remeron) 30 mg BEDTIME ORAL 11/12/18 21:00 7/27/19 20:59 11/21/18 21:07 Olanzapine (ZyPREXA) 30 mg BEDTIME ORAL 11/18/18 21:00 12/12/18 08:59 11/21/18 21:07 Last 24 Hour Vital Signs Date Time Temp Pulse Resp B/P (MAP) Pulse Ox O2 Delivery O2 Flow Rate FiO2 11/22/18 18:07 98.2 87 18 100/71 (81) 96 11/22/18 18:06 100/71 11/22/18 11:46 98.0 57 19 88/55 (66) 96 11/22/18 10:07 98/60 11/22/18 10:05 97 98/60 11/22/18 09:40 78 97 116 11/22/18 09:00 Room Air 11/22/18 09:00 97 98/60 11/22/18 08:33 98.2 76 18 90/60 (70) 95 11/22/18 04:00 97.6 75 16 115/70 (85) 96 11/22/18 00:00 97.7 76 16 91/64 (73) 95 11/21/18 21:00 87 97/63 11/21/18 21:00 Room Air 11/21/18 20:00 97.6 87 16 97/63 (74) 95 11/21/18 18:38 100/60 11/21/18 18:32 83 100/60 (73) 11/21/18 15:55 97.7 83 19 118/63 (81) 96 11/21/18 12:00 98.6 79 18 104/75 (85) 97 11/21/18 11:14 122 120/84 11/21/18 10:10 86 105 122 11/21/18 10:10 122 120/84 (96) 11/21/18 09:40 86 94/62 (73) 11/21/18 09:00 94/62 11/21/18 09:00 86 94/62 11/21/18 09:00 86 94/62 11/21/18 09:00 Room Air 11/21/18 08:00 97.4 90 17 108/76 (87) 97 11/21/18 04:00 97.5 98 18 103/68 (80) 96 11/21/18 00:00 96 92 99 11/21/18 00:00 98.0 100 18 98/66 (77) 96 11/20/18 21:32 Room Air 11/20/18 21:28 88 145/81 Intake and Output 11/21/18 11/22/18 19:00 07:00 Intake Total 948 ml 240 ml Balance 948 ml 240 ml Intake Oral 948 ml 240 ml # Voids 2 3 # Bowel Movements 1 Labs Test 11/22/18 05:45 White Blood Count 4.4 K/UL (4.8-10.8) Red Blood Count 3.75 M/UL (4.70-6.10) Hemoglobin 11.0 G/DL (14.2-18.0) Hematocrit 33.5 % (42.0-52.0) Mean Corpuscular Volume 90 FL (80-99) Mean Corpuscular Hemoglobin 29.4 PG (27.0-31.0) Mean Corpuscular Hemoglobin Concent 32.8 G/DL (32.0-36.0) Red Cell Distribution Width 15.8 % (11.6-14.8) Platelet Count 132 K/UL (150-450) Mean Platelet Volume 6.2 FL (6.5-10.1) Neutrophils (%) (Auto) 39.4 % (45.0-75.0) Lymphocytes (%) (Auto) 43.8 % (20.0-45.0) Monocytes (%) (Auto) 10.6 % (1.0-10.0) Eosinophils (%) (Auto) 4.8 % (0.0-3.0) Basophils (%) (Auto) 1.3 % (0.0-2.0) Sodium Level 143 MMOL/L (136-145) Potassium Level 4.1 MMOL/L (3.5-5.1) Chloride Level 106 MMOL/L (98-107) Carbon Dioxide Level 31 MMOL/L (21-32) Anion Gap 6 mmol/L (5-15) Blood Urea Nitrogen 38 mg/dL (7-18) Creatinine 1.3 MG/DL (0.55-1.30) Estimat Glomerular Filtration Rate 55.4 mL/min (>60) Glucose Level 141 MG/DL (74-106) Calcium Level 9.4 MG/DL (8.5-10.1) Height (Feet): 5 Height (Inches): 6.00 Weight (Pounds): 110 Objective Objective PHYSICAL EXAMINATION: VITAL SIGNS: Have been reviewed. HEENT: PERRLA. NECK: Supple. No lymphadenopathy. CHEST: Clear to auscultation. CARDIOVASCULAR: Regular rate and rhythm. No murmurs or extra sounds. GASTROINTESTINAL: Soft, nontender, and nondistended. No organomegaly. EXTREMITIES: No edema. Moves all four extremities. NEUROLOGIC: Sensory intact to light touch. Reflexes are equal on both sides. Kristen Cruz INVESTMENT PROFESSIONAL Nov 22, 2018 20:54
[2018-11-22] MEDS: OLANZapine 10mg tab ORAL SCH (21:13)
[2018-11-23] VITALS: BP 104/58
[2018-11-23 04:00] VITALS: BP 101/64
--- NOTE | 2018-11-23 07:03 | NUR ---
HAND-OFF: Report given to Report given to ERASMO JARAMILLO.
--- NOTE | 2018-11-23 07:26 | NUR ---
NURSE NOTES: Received report from ELLA Campos. Rounding done with outgoing nurse. Patient is asleep. Bed alarm is on. Bed in lowest position, call light within reach. Will continue to monitor.
[2018-11-23 08:00] VITALS: BP 104/65
[2018-11-23] MEDS: Lisinopril 20mg tab ORAL SCH (09:04)
[2018-11-23] MEDS: Eliquis 5mg tablet ORAL SCH ×2 (09:04→17:32)
[2018-11-23] MEDS: Depakote ER 500mg tab ORAL SCH (09:04)
[2018-11-23] MEDS: dilTIAZem HCl CD 120mg cap ORAL SCH (09:04)
--- NOTE | 2018-11-23 09:46 | NUR ---
CASE MANAGEMENT:REVIEW 11/23/18 SI: ANEMIA. AFIB W/RVR NON COMPLIANCE 98.4 69 20 104/65 96% ON RA IS: IVF@75/HR DEPAKOTE 500MG PO QD ZYPREXA 30MG PO QHS NEURONTIN 100MG PO QHS REMERON 30MG PO QHS LISINOPRIL PO QD SYNTHROID PO QD CARDIZEM PO QD LOPRESSOR PO Q12 ELIQUIS PO BID : MED/SURG STATUS 4 EAST DCP: FROM [facility] PL[facility]: HAS BEEN ON PSYCH MEDS SINCE 11/12/18
--- NOTE | 2018-11-23 09:52 | NUR ---
DISCHARGE PLANNING VMM LEFT FOR PUBLIC GUARDIAN,TONIUTAmy ISRAEL SESAY T: [phone] REQUESTING ASSISTANCE WITH PLACEMENT AND MCAL AWAIT RESPONSE Addendum: 11/23/18 at 1012 by GLENNA LARESN ELEMENTARY SCIENCE TEACHER CALLED AND LEFT [facility]MM FOR [facility], [place], T:[phone] REQUESTING ASSISTANCE WITH [facility] SINCE HE IS NOW NON COMPLIANT AND WOULD BENEFIT FROM PSYCH [facility] AND SPOKE WITH MIGUEL T: [phone] PER MIGUEL THEIR PSYCH MD, DR JAMES PAIGE HAS BEEN FOLLOWING ALONG AND IS UNABLE TO ACCEPT A
--- NOTE | 2018-11-23 10:56 | General Progress Note ---
Assessment/Plan Status: stable, unchanged Assessment/Plan: 63 y/o man with hx of paroxysmal atrial fibrillation, presented to the hospital with pre-syncope, found to have rapid atrial fibrillation. #Paroxysmal Atrial Fibrillation #Atrial fibrillation with RVR - Cont beta zack and Diltiazem for rate control - holding parameters placed. - Cont NOAC.. - echo did not show any remarkable changes - Apprec cardiology recs # Orthostatic hypotension - Serial Orthostatic vital signs - Monitor OFF IVF and follow up. #Anemia due to chronic illness #Thrombocytopenia - Hgb and platelet count appeared to be at baseline, seen by Hematology, no new changes recommended. Labs in AM #unstable gait -continue PT ( patient refused treatment 11/20 and not seen since then by PT ) - PATIENT WILL NEED TO BE WITHOUT FWW in order to return to his [facility]. Otherwise, will need new placement. it account manager follow up is needed. SW note for conservator reviewed. #Behavorial disorder -psych meds restarted -psychiatry consulted time of note may not reflect time of encounter Subjective Date patient seen: Nov 23, 2018 Allergies: Coded Allergies: RISPERIDONE (Unverified Allergy, Unknown, 07/04/18) ZIPRASIDONE (Verified Allergy, Unknown, 06/30/18) Uncoded Allergies: RESPERIDONE (Allergy, Unknown, 06/30/18) Subjective Pt with unstable gait, cont PT daily. No chest pain or dyspnea, no other complaints, no tele events. Refused MRI, appetite improved today, took meds this am, BP improved, more interactive today, ambulating, Objective Last 24 Hour Vital Signs Date Time Temp Pulse Resp B/P (MAP) Pulse Ox O2 Delivery O2 Flow Rate FiO2 11/23/18 09:04 104/65 11/23/18 09:04 69 104/65 11/23/18 09:04 69 104/65 11/23/18 09:00 Room Air 11/23/18 08:00 98.4 69 20 104/65 (78) 96 11/23/18 04:00 98.5 63 16 101/64 (76) 96 11/23/18 00:00 97.4 69 16 104/58 (73) 11/22/18 21:18 83 105/73 11/22/18 21:00 Room Air 11/22/18 20:00 98.6 83 105/73 (84) 95 11/22/18 18:07 98.2 87 18 100/71 (81) 96 11/22/18 18:06 100/71 11/22/18 11:46 98.0 57 19 88/55 (66) 96 Intake and Output 11/22/18 11/23/18 19:00 07:00 Intake Total 948 ml 960 ml Balance 948 ml 960 ml Intake Oral 948 ml 960 ml # Voids 3 9 Height (Feet): 5 Height (Inches): 6.00 Weight (Pounds): 110 Objective General: alert, cooperative, no distress, appears stated age Head: normocephalic, without obvious abnormality, atraumatic Eyes: conjunctivae/corneas clear. PERRL, EOM's intact Throat: lips, mucosa, and tongue normal. MMM Neck: supple, symmetrical, trachea midline, and no JVD Lungs: clear to auscultation bilaterally Heart: regular rate and rhythm, S1, S2 normal, no murmur, click, rub or gallop Abdomen: soft, non-tender, non-distended, bowel sounds normal; no masses or organomegaly Extremities: extremities normal, atraumatic, no cyanosis or edema Pulses: 2+ and symmetric Skin: skin color, texture, turgor normal; no rashes or lesions Neurologic: grossly normal, no focal deficits Anny Cole MD Nov 23, 2018 10:56
[2018-11-23 12:00] VITALS: BP 104/65
--- NOTE | 2018-11-23 14:51 | NUR ---
*-* INSURANCE *-* UPDATED REVIEWS HAVE BEEN FAXED TO: [facility] [place] [facility] [place]# THE REF#..... NO DANCE CRITIC ASSIGNED P- [phone].... F- [phone]...REVIEW/CLINICAL
--- NOTE | 2018-11-23 14:59 | Hematology/Onc Progress Note ---
Assessment/Plan Assessment/Plan # Anemia of chronic disease due to underlying chronic medical issues, multifactorial --> Anemia workup has been reviewed. Ferritin 83, TIBC 242 --> No evidence of hemolysis is noted, peripheral smear has been reviewed. --> Hgb goal >7. Transfuse prn. --> Epogen or iron at this time is not particularly indicated --> Medications have been reviewed --> hgb trend 14.1-->12.5--> 12.3-->11 # Thrombocytopenia - potential causes multifactorial, evaluate liver and viral etiologies to begin, also could be related to underlying medications patient has received. --> Hep panel and HIV on PRIOR admission was negative --> US abd negative for cirrhosis and hsm --> Peripheral smear ordered to evaluate for blasts/schistocytes, none noted --> abx and other meds have been reviewed --> ok for ppx if plt >50k w/ either heparin or lovenox --> Transfuse if Plt < 20k and fever, or if Plt < 10k without fever --> Plt trend 118-->169k-->187k--> 102K->133k # Atelectasis, Optimize pulmonary hygiene/mobilize as tolerated --> on cxr appears stable --> per pulm # Paroxysmal AFib, per cardiology recs--> on noac # Hypertension. --> controlled, SBP goal < 140 # Hypothyroidism. # Lactic acidosis, resolved. # MACARENA, resolved. # Placement The timing of this note does not necessarily reflect the time of the patient was seen. Greatly appreciate consultation! Subjective Constitutional: Denies: no symptoms, chills, fever, malaise, weakness, other HEENT: Denies: no symptoms, eye pain, blurred vision, tearing, double vision, ear pain, ear discharge, nose pain, nose congestion, throat pain, throat swelling, mouth pain, mouth swelling, other Respiratory: Denies: no symptoms, cough, shortness of breath, SOB with excertion, SOB at rest, sputum, wheezing, other Gastrointestinal/Abdominal: Denies: no symptoms, abdomen distended, abdominal pain, black stools, tarry stools, blood in stool, constipated, diarrhea, difficulty swallowing, nausea, poor appetite, poor fluid intake, rectal bleeding , vomiting, other Genitourinary: Denies: no symptoms, burning, discharge, frequency, flank pain, hematuria, incontinence, pain, urgency, other Endocrine: Denies: no symptoms, excessive sweating, flushing, intolerance to cold, intolerance to heat, increased hunger, increased thirst, increased urine, unexplained weight gain, unexplained weight loss, other Hematologic/Lymphatic: Denies: no symptoms, anemia, easy bleeding, easy bruising, adenopathy, other Allergies: Coded Allergies: RISPERIDONE (Unverified Allergy, Unknown, 07/04/18) ZIPRASIDONE (Verified Allergy, Unknown, 06/30/18) Uncoded Allergies: RESPERIDONE (Allergy, Unknown, 06/30/18) Subjective 11/06: Pt resting in bed. No acute distress. DC planning. 11/08: Pt asleep in bed. No acute events. 11/10: Pt stable, no signs of acute distress or SOB. Venous duplex negative. 11/11: Pt resting in bed. Afebrile, no sob. MRI brain pending. 11/12: Pt in bed, sleeping. No respiratory distress noted. DC planning. 11/13: Pt awake and alert, refused morning meds. No signs of SOB or pain observed. Plt count significantly improved overnight. 11/15: Pt denies pain, no complaints of dyspnea 11/17: Pt resting in bed no chest pain or dyspnea, no other complaints 11/18: unable to place picc given do not have consent 11/20: no acute events reported. 11/21: pt refused am labs as well as am meds. h/h stable from prior labs. 11/22: pt no acute distress. Afebrile, VS reviewed. Objective Objective Current Medications Medications (Trade) Dose Ordered Sig/Eduardo Route PRN Reason Start Time Stop Time Status Last Admin Dose Admin Apixaban (Eliquis) 5 mg BID ORAL 11/07/18 18:00 12/05/18 08:59 11/23/18 09:04 Diltiazem HCl (Cardizem CD) 120 mg DAILY ORAL 11/21/18 10:50 12/21/18 10:49 11/23/18 09:04 Divalproex Sodium (Depakote ER) 500 mg DAILY ORAL 11/19/18 09:00 12/12/18 08:59 11/23/18 09:04 Gabapentin (Neurontin) 100 mg BEDTIME ORAL 11/18/18 21:00 12/18/18 20:59 11/22/18 21:14 Hydralazine HCl (Apresoline) 50 mg QIDPRN PRN ORAL HTN SBP >155 11/07/18 19:30 12/07/18 19:29 11/09/18 16:23 Levothyroxine Sodium (Synthroid) 50 mcg DAILY@0630 ORAL 11/13/18 06:30 12/13/18 06:29 11/23/18 06:17 Lisinopril (Prinivil) 20 mg DAILY ORAL 11/22/18 09:00 12/22/18 08:59 11/23/18 09:04 Lisinopril (Zestril) 10 mg QPM@1800 ORAL 11/15/18 18:00 12/15/18 17:59 11/22/18 18:06 Metoprolol Tartrate (Lopressor) 100 mg Q12HR ORAL 11/21/18 21:00 12/05/18 18:59 11/23/18 09:04 Mirtazapine (Remeron) 30 mg BEDTIME ORAL 11/12/18 21:00 12/12/18 20:59 11/22/18 21:13 Olanzapine (ZyPREXA) 30 mg BEDTIME ORAL 11/18/18 21:00 12/12/18 08:59 11/22/18 21:13 Last 24 Hour Vital Signs Date Time Temp Pulse Resp B/P (MAP) Pulse Ox O2 Delivery O2 Flow Rate FiO2 11/23/18 12:00 97.7 59 18 104/65 (78) 97 11/23/18 12:00 59 122 81 11/23/18 09:04 104/65 11/23/18 09:04 69 104/65 11/23/18 09:04 69 104/65 11/23/18 09:00 Room Air 11/23/18 08:00 98.4 69 20 104/65 (78) 96 11/23/18 04:00 98.5 63 16 101/64 (76) 96 11/23/18 00:00 97.4 69 16 104/58 (73) 11/22/18 21:18 83 105/73 11/22/18 21:00 Room Air 11/22/18 20:00 98.6 83 105/73 (84) 95 11/22/18 18:07 98.2 87 18 100/71 (81) 96 11/22/18 18:06 100/71 11/22/18 11:46 98.0 57 19 88/55 (66) 96 11/22/18 10:07 98/60 11/22/18 10:05 97 98/60 11/22/18 09:40 78 97 116 11/22/18 09:00 Room Air 11/22/18 09:00 97 98/60 11/22/18 08:33 98.2 76 18 90/60 (70) 95 11/22/18 04:00 97.6 75 16 115/70 (85) 96 11/22/18 00:00 97.7 76 16 91/64 (73) 95 11/21/18 21:00 87 97/63 11/21/18 21:00 Room Air 11/21/18 20:00 97.6 87 16 97/63 (74) 95 11/21/18 18:38 100/60 11/21/18 18:32 83 100/60 (73) 11/21/18 15:55 97.7 83 19 118/63 (81) 96 Intake and Output 11/22/18 11/23/18 19:00 07:00 Intake Total 948 ml 960 ml Balance 948 ml 960 ml Intake Oral 948 ml 960 ml # Voids 3 9 Labs Test 11/22/18 05:45 White Blood Count 4.4 K/UL (4.8-10.8) Red Blood Count 3.75 M/UL (4.70-6.10) Hemoglobin 11.0 G/DL (14.2-18.0) Hematocrit 33.5 % (42.0-52.0) Mean Corpuscular Volume 90 FL (80-99) Mean Corpuscular Hemoglobin 29.4 PG (27.0-31.0) Mean Corpuscular Hemoglobin Concent 32.8 G/DL (32.0-36.0) Red Cell Distribution Width 15.8 % (11.6-14.8) Platelet Count 132 K/UL (150-450) Mean Platelet Volume 6.2 FL (6.5-10.1) Neutrophils (%) (Auto) 39.4 % (45.0-75.0) Lymphocytes (%) (Auto) 43.8 % (20.0-45.0) Monocytes (%) (Auto) 10.6 % (1.0-10.0) Eosinophils (%) (Auto) 4.8 % (0.0-3.0) Basophils (%) (Auto) 1.3 % (0.0-2.0) Sodium Level 143 MMOL/L (136-145) Potassium Level 4.1 MMOL/L (3.5-5.1) Chloride Level 106 MMOL/L (98-107) Carbon Dioxide Level 31 MMOL/L (21-32) Anion Gap 6 mmol/L (5-15) Blood Urea Nitrogen 38 mg/dL (7-18) Creatinine 1.3 MG/DL (0.55-1.30) Estimat Glomerular Filtration Rate 55.4 mL/min (>60) Glucose Level 141 MG/DL (74-106) Calcium Level 9.4 MG/DL (8.5-10.1) Height (Feet): 5 Height (Inches): 6.00 Weight (Pounds): 110 Objective PHYSICAL EXAMINATION: VITAL SIGNS: Have been reviewed. HEENT: PERRLA. NECK: Supple. No lymphadenopathy. CHEST: Clear to auscultation. CARDIOVASCULAR: Regular rate and rhythm. No murmurs or extra sounds. GASTROINTESTINAL: Soft, nontender, and nondistended. No organomegaly. EXTREMITIES: No edema. Moves all four extremities. NEUROLOGIC: Sensory intact to light touch. Reflexes are equal on both sides. Bennie Goss MD Nov 23, 2018 14:59
--- NOTE | 2018-11-23 15:22 | NUR ---
P.T Note: P.T visit attempted however patient refused to participate. Will reattempt tomorrow.
[2018-11-23 16:00] VITALS: BP 92/56
[2018-11-23] MEDS: Lisinopril 10mg tab ORAL SCH (17:28)
--- NOTE | 2018-11-23 19:50 | NUR ---
NURSE NOTES: Received a report from Bree Gloria RN. Pt is in stable condition. AAOX3. Able to make needs known. On room air. No c/o pain/discomfort. No IV access, aware. Bed in lowest position. Bed alarm is on. Call light within reach. Will continue to monitor.
--- NOTE | 2018-11-23 19:50 | NUR ---
HAND-OFF: Report given to ELLA Emery.
[2018-11-23 20:00] VITALS: BP 91/61
[2018-11-23] MEDS: OLANZapine 10mg tab ORAL SCH (20:34)
[2018-11-24] VITALS: BP 90/54
[2018-11-24 04:00] VITALS: BP 90/56
--- NOTE | 2018-11-24 07:28 | NUR ---
HAND-OFF: Report given to ELLA Garnett.
--- NOTE | 2018-11-24 07:35 | NUR ---
NURSE NOTES: WALKING ROUNDS DONE WITH OUTGOING RN. PATIENT ASLEEP IN BED BUT EASY TO AROUSE. NEED MET, [place] ANSWERED. DENIES ANY ISSUES AT TIS TIME. BED IN LOWEST POSITION, CALL LIGHT WITHIN REACH.
[2018-11-24 08:00] VITALS: BP 114/62
--- NOTE | 2018-11-24 08:51 | Hematology/Onc Progress Note ---
Assessment/Plan Assessment/Plan # Anemia of chronic disease due to underlying chronic medical issues, multifactorial --> Anemia workup has been reviewed. Ferritin 83, TIBC 242 --> No evidence of hemolysis is noted, peripheral smear has been reviewed. --> Hgb goal >7. Transfuse prn. --> Epogen or iron at this time is not particularly indicated --> Medications have been reviewed --> hgb trend 14.1-->12.5--> 12.3-->11 # Thrombocytopenia - potential causes multifactorial, evaluate liver and viral etiologies to begin, also could be related to underlying medications patient has received. --> Hep panel and HIV on PRIOR admission was negative --> US abd negative for cirrhosis and hsm --> Peripheral smear ordered to evaluate for blasts/schistocytes, none noted --> abx and other meds have been reviewed --> ok for ppx if plt >50k w/ either heparin or lovenox --> Transfuse if Plt < 20k and fever, or if Plt < 10k without fever --> Plt trend 118-->169k-->187k--> 102K->133k # Atelectasis, optimize pulmonary hygiene/mobilize as tolerated --> on cxr appears stable --> per pulm # Paroxysmal AFib, per cardiology recs--> on noac --> on eliquis # Hypertension --> controlled, sbp goal < 140 # Hypothyroidism. # Lactic acidosis, resolved. # MACARENA, resolved. # Placement The timing of this note does not necessarily reflect the time of the patient was seen. Greatly appreciate consultation! Subjective Constitutional: Denies: no symptoms, chills, fever, malaise, weakness, other HEENT: Denies: no symptoms, eye pain, blurred vision, tearing, double vision, ear pain, ear discharge, nose pain, nose congestion, throat pain, throat swelling, mouth pain, mouth swelling, other Cardiovascular: Denies: no symptoms, chest pain, edema, irregular heart rate, lightheadedness, palpitations, syncope, other Respiratory: Denies: no symptoms, cough, shortness of breath, SOB with excertion, SOB at rest, sputum, wheezing, other Gastrointestinal/Abdominal: Denies: no symptoms, abdomen distended, abdominal pain, black stools, tarry stools, blood in stool, constipated, diarrhea, difficulty swallowing, nausea, poor appetite, poor fluid intake, rectal bleeding , vomiting, other Genitourinary: Denies: no symptoms, burning, discharge, frequency, flank pain, hematuria, incontinence, pain, urgency, other Neurologic/Psychiatric: Denies: no symptoms, anxiety, depressed, emotional problems, headache, numbness, paresthesia, pre-existing deficit, seizure, tingling, tremors, weakness, other Endocrine: Denies: no symptoms, excessive sweating, flushing, intolerance to cold, intolerance to heat, increased hunger, increased thirst, increased urine, unexplained weight gain, unexplained weight loss, other Hematologic/Lymphatic: Denies: no symptoms, anemia, easy bleeding, easy bruising, adenopathy, other Allergies: Coded Allergies: RISPERIDONE (Unverified Allergy, Unknown, 07/04/18) ZIPRASIDONE (Verified Allergy, Unknown, 06/30/18) Uncoded Allergies: RESPERIDONE (Allergy, Unknown, 06/30/18) Subjective 11/06: Pt resting in bed. No acute distress. DC planning. 11/08: Pt asleep in bed. No acute events. 11/10: Pt stable, no signs of acute distress or SOB. Venous duplex negative. 11/11: Pt resting in bed. Afebrile, no sob. MRI brain pending. 11/12: Pt in bed, sleeping. No respiratory distress noted. DC planning. 11/13: Pt awake and alert, refused morning meds. No signs of SOB or pain observed. Plt count significantly improved overnight. 11/15: Pt denies pain, no complaints of dyspnea 11/17: Pt resting in bed no chest pain or dyspnea, no other complaints 11/18: unable to place picc given do not have consent 11/20: no acute events reported. 11/21: pt refused am labs as well as am meds. h/h stable from prior labs. 11/22: pt no acute distress. Afebrile, VS reviewed. 11/23: no events reported, no f/c noted 11/24: refusing to participate in exam, labs have been reviewed Objective Objective Current Medications Medications (Trade) Dose Ordered Sig/Eduardo Route PRN Reason Start Time Stop Time Status Last Admin Dose Admin Apixaban (Eliquis) 5 mg BID ORAL 11/07/18 18:00 12/05/18 08:59 11/23/18 17:32 Diltiazem HCl (Cardizem CD) 120 mg DAILY ORAL 11/21/18 10:50 12/21/18 10:49 11/23/18 09:04 Divalproex Sodium (Depakote ER) 500 mg DAILY ORAL 11/19/18 09:00 12/12/18 08:59 11/23/18 09:04 Gabapentin (Neurontin) 100 mg BEDTIME ORAL 11/18/18 21:00 12/18/18 20:59 11/23/18 20:34 Hydralazine HCl (Apresoline) 50 mg QIDPRN PRN ORAL HTN SBP >155 11/07/18 19:30 12/07/18 19:29 11/09/18 16:23 Levothyroxine Sodium (Synthroid) 50 mcg DAILY@0630 ORAL 11/13/18 06:30 12/13/18 06:29 11/24/18 05:39 Lisinopril (Prinivil) 20 mg DAILY ORAL 11/22/18 09:00 12/22/18 08:59 11/23/18 09:04 Lisinopril (Zestril) 10 mg QPM@1800 ORAL 11/15/18 18:00 12/15/18 17:59 11/22/18 18:06 Metoprolol Tartrate (Lopressor) 100 mg Q12HR ORAL 11/21/18 21:00 12/05/18 18:59 11/23/18 09:04 Mirtazapine (Remeron) 30 mg BEDTIME ORAL 11/12/18 21:00 12/12/18 20:59 11/23/18 20:34 Olanzapine (ZyPREXA) 30 mg BEDTIME ORAL 11/18/18 21:00 12/12/18 08:59 11/23/18 20:34 Last 24 Hour Vital Signs Date Time Temp Pulse Resp B/P (MAP) Pulse Ox O2 Delivery O2 Flow Rate FiO2 11/24/18 08:00 97.6 58 20 114/62 (79) 96 11/24/18 04:00 97.9 64 17 90/56 (67) 95 11/24/18 00:00 98.4 67 18 90/54 (66) 94 11/23/18 21:00 Room Air 11/23/18 20:30 68 91/61 11/23/18 20:00 98.6 68 17 91/61 (71) 95 11/23/18 17:28 92/56 11/23/18 16:00 98.0 58 18 92/56 (68) 96 11/23/18 12:00 97.7 59 18 104/65 (78) 97 11/23/18 12:00 59 122 81 11/23/18 09:04 104/65 11/23/18 09:04 69 104/65 11/23/18 09:04 69 104/65 11/23/18 09:00 Room Air 11/23/18 08:00 98.4 69 20 104/65 (78) 96 11/23/18 04:00 98.5 63 16 101/64 (76) 96 11/23/18 00:00 97.4 69 16 104/58 (73) 11/22/18 21:18 83 105/73 11/22/18 21:00 Room Air 11/22/18 20:00 98.6 83 105/73 (84) 95 11/22/18 18:07 98.2 87 18 100/71 (81) 96 11/22/18 18:06 100/71 11/22/18 11:46 98.0 57 19 88/55 (66) 96 11/22/18 10:07 98/60 11/22/18 10:05 97 98/60 11/22/18 09:40 78 97 116 11/22/18 09:00 Room Air 11/22/18 09:00 97 98/60 Intake and Output 11/23/18 11/24/18 18:59 06:59 Intake Total 500 ml 480 ml Output Total 700 ml Balance 500 ml -220 ml Intake Oral 500 ml 480 ml Output Urine Total 700 ml # Voids 2 3 Labs Test 11/22/18 05:45 White Blood Count 4.4 K/UL (4.8-10.8) Red Blood Count 3.75 M/UL (4.70-6.10) Hemoglobin 11.0 G/DL (14.2-18.0) Hematocrit 33.5 % (42.0-52.0) Mean Corpuscular Volume 90 FL (80-99) Mean Corpuscular Hemoglobin 29.4 PG (27.0-31.0) Mean Corpuscular Hemoglobin Concent 32.8 G/DL (32.0-36.0) Red Cell Distribution Width 15.8 % (11.6-14.8) Platelet Count 132 K/UL (150-450) Mean Platelet Volume 6.2 FL (6.5-10.1) Neutrophils (%) (Auto) 39.4 % (45.0-75.0) Lymphocytes (%) (Auto) 43.8 % (20.0-45.0) Monocytes (%) (Auto) 10.6 % (1.0-10.0) Eosinophils (%) (Auto) 4.8 % (0.0-3.0) Basophils (%) (Auto) 1.3 % (0.0-2.0) Sodium Level 143 MMOL/L (136-145) Potassium Level 4.1 MMOL/L (3.5-5.1) Chloride Level 106 MMOL/L (98-107) Carbon Dioxide Level 31 MMOL/L (21-32) Anion Gap 6 mmol/L (5-15) Blood Urea Nitrogen 38 mg/dL (7-18) Creatinine 1.3 MG/DL (0.55-1.30) Estimat Glomerular Filtration Rate 55.4 mL/min (>60) Glucose Level 141 MG/DL (74-106) Calcium Level 9.4 MG/DL (8.5-10.1) Height (Feet): 5 Height (Inches): 6.00 Weight (Pounds): 110 Objective PHYSICAL EXAMINATION: VITAL SIGNS: Have been reviewed. HEENT: PERRLA. NECK: Supple. No lymphadenopathy. CHEST: Clear to auscultation. CARDIOVASCULAR: Regular rate and rhythm. No murmurs or extra sounds. GASTROINTESTINAL: Soft, nontender, and nondistended. No organomegaly. EXTREMITIES: No edema. Moves all four extremities. NEUROLOGIC: Sensory intact to light touch. Reflexes are equal on both sides. Bennie Goss MD Nov 24, 2018 08:51
[2018-11-24] MEDS: dilTIAZem HCl CD 120mg cap ORAL SCH ×2 (09:00→09:33)
[2018-11-24] MEDS: Depakote ER 500mg tab ORAL SCH (09:32)
[2018-11-24] MEDS: Eliquis 5mg tablet ORAL SCH ×2 (09:33→17:41)
[2018-11-24] MEDS: Lisinopril 20mg tab ORAL SCH (09:34)
--- NOTE | 2018-11-24 10:48 | NUR ---
NURSE NOTES: PATIENT REFUSED CBC LAB DRAW THIS A.M. DR JONES MADE AWARE.
--- NOTE | 2018-11-24 11:30 | NUR ---
NURSE NOTES: PATIENT DOING WELL.SKIN REMAINS INTACT. PATIENT ABLE TO SELF-REPOSITION NEEDED.
[2018-11-24 12:00] VITALS: BP 103/61
--- NOTE | 2018-11-24 15:57 | NUR ---
CASE MANAGEMENT:REVIEW 11/24/18 SI: ANEMIA. AFIB W/RVR NON COMPLIANCE 97.3 68 18 103/61 97% ON RA IS: DEPAKOTE 500MG PO QD ZYPREXA 30MG PO QHS NEURONTIN 100MG PO QHS REMERON 30MG PO QHS LISINOPRIL PO QD SYNTHROID PO QD CARDIZEM PO QD LOPRESSOR PO Q12 ELIQUIS PO BID : MED/SURG STATUS 4 EAST DCP: FROM [facility]KK[facility] NAYAK PLAN: HAS BEEN ON PSYCH MEDS SINCE 11/12/18
--- NOTE | 2018-11-24 15:59 | NUR ---
DISCHARGE PLANNING CARDIOVASCULAR TECH REQUESTED PATIENT BE TRANSFERR[facility] UNDER [facility] WAITING FOR LPS PAPERWORK FROM [employer] [employer] STATING PATIENT NEEDS TO TRANSFER TO [facility] FOR [facility]
[2018-11-24 16:00] VITALS: BP 100/52
--- NOTE | 2018-11-24 16:44 | NUR ---
P.T Note: late entry P.T visit attempted however patient refused to participate. Will reattempt tomorrow.
[2018-11-24] MEDS: Lisinopril 10mg tab ORAL SCH (17:41)
--- NOTE | 2018-11-24 19:45 | NUR ---
NURSE NOTES: Pt is in bed, awake and verbal. Pt does not complain of any pain, vitals stable. Pt is taking ensure vitamin supplement. Pt is instructed to call before getting out of bed, bed alarm on, fall precaution in place. Bed sherry dlow in position,side rails up and call light within reach.
--- NOTE | 2018-11-24 19:51 | NUR ---
HAND-OFF: Report given to YUNG JARAMILLO.
[2018-11-24 20:00] VITALS: BP 99/58
[2018-11-24] MEDS: OLANZapine 10mg tab ORAL SCH (22:02)
--- NOTE | 2018-11-24 22:34 | General Progress Note ---
Assessment/Plan Status: stable, unchanged Assessment/Plan: 63 y/o man with hx of paroxysmal atrial fibrillation, presented to the hospital with pre-syncope, found to have rapid atrial fibrillation. #Paroxysmal Atrial Fibrillation #Atrial fibrillation with RVR - Cont beta zack and Diltiazem for rate control - holding parameters placed. - Cont NOAC.. - echo did not show any remarkable changes - Apprec cardiology recs # Orthostatic hypotension - Serial Orthostatic vital signs - Monitor OFF IVF and follow up. #Anemia due to chronic illness #Thrombocytopenia - Hgb and platelet count appeared to be at baseline, seen by Hematology, no new changes recommended. Labs in AM #unstable gait -continue PT ( patient refused treatment 11/20 and not seen since then by PT ) - PATIENT WILL NEED TO BE WITHOUT FWW in order to return to his [facility]. Otherwise, will need new placement. property claims manager follow up is needed. SW note for conservator reviewed. #Behavorial disorder -psych meds restarted -psychiatry consulted time of note may not reflect time of encounter Subjective Date patient seen: Nov 24, 2018 Allergies: Coded Allergies: RISPERIDONE (Unverified Allergy, Unknown, 07/04/18) ZIPRASIDONE (Verified Allergy, Unknown, 06/30/18) Uncoded Allergies: RESPERIDONE (Allergy, Unknown, 06/30/18) Subjective Pt with unstable gait, cont PT daily. No chest pain or dyspnea, no other complaints, no tele events. Refused MRI, appetite improved today, took meds this am, BP improved, more interactive today, ambulating, Objective Last 24 Hour Vital Signs Date Time Temp Pulse Resp B/P (MAP) Pulse Ox O2 Delivery O2 Flow Rate FiO2 11/24/18 21:00 66 99/58 11/24/18 20:00 98.1 66 18 99/58 (72) 96 11/24/18 17:41 100/52 11/24/18 16:00 97.4 55 20 100/52 (68) 95 11/24/18 12:00 97.3 68 18 103/61 (75) 97 11/24/18 09:34 130/83 11/24/18 09:33 75 134/82 11/24/18 09:32 70 130/83 11/24/18 09:00 59 70 75 11/24/18 09:00 58 114/62 11/24/18 09:00 58 114/62 7/9/19 09:00 Room Air 11/24/18 08:00 97.6 58 20 114/62 (79) 96 11/24/18 04:00 97.9 64 17 90/56 (67) 95 11/24/18 00:00 98.4 67 18 90/54 (66) 94 Intake and Output 11/23/18 11/24/18 18:59 06:59 Intake Total 500 ml 480 ml Output Total 700 ml Balance 500 ml -220 ml Intake Oral 500 ml 480 ml Output Urine Total 700 ml # Voids 2 3 Height (Feet): 5 Height (Inches): 6.00 Weight (Pounds): 110 Objective General: alert, cooperative, no distress, appears stated age Head: normocephalic, without obvious abnormality, atraumatic Eyes: conjunctivae/corneas clear. PERRL, EOM's intact Throat: lips, mucosa, and tongue normal. MMM Neck: supple, symmetrical, trachea midline, and no JVD Lungs: clear to auscultation bilaterally Heart: regular rate and rhythm, S1, S2 normal, no murmur, click, rub or gallop Abdomen: soft, non-tender, non-distended, bowel sounds normal; no masses or organomegaly Extremities: extremities normal, atraumatic, no cyanosis or edema Pulses: 2+ and symmetric Skin: skin color, texture, turgor normal; no rashes or lesions Neurologic: grossly normal, no focal deficits Anny Cole MD Nov 24, 2018 22:34
[2018-11-25] VITALS: BP 98/60
--- NOTE | 2018-11-25 03:50 | NUR ---
NURSE NOTES: Pt is in bed, asleep. No acute distress noted. Pt drank 3 bottles of Ensure during this shift.
[2018-11-25 04:00] VITALS: BP 102/63
[2018-11-25 06:49] LABS: BASOPHILS % (AUTO) 1.5 % (0.0-2.0); EOSINOPHILS % (AUTO) 5.4 % (0.0-3.0); HEMATOCRIT 33.8 % (42.0-52.0); HEMOGLOBIN 11.2 G/DL (14.2-18.0); LYMPHOCYTES % (AUTO) 32.9 % (20.0-45.0); MEAN CORPUSCULAR VOLUME 89 FL (80-99); MONOCYTES % (AUTO) 12.8 % (1.0-10.0); NEUTROPHILS % (AUTO) 47.4 % (45.0-75.0); PLATELET COUNT 154 K/UL (150-450); RED BLOOD COUNT 3.81 M/UL (4.70-6.10); RED CELL DISTRIBUTION WIDTH 15.7 % (11.6-14.8); WHITE BLOOD COUNT 5.8 K/UL (4.8-10.8)
--- NOTE | 2018-11-25 07:03 | NUR ---
HAND-OFF: Report given to ELLA Banerjee.
--- NOTE | 2018-11-25 07:03 | NUR ---
NURSE NOTES:bedside rounds with fraheen rn.pt.awake a/o x2-3,room air,moving all extremities,no c/o pain.plan of care discussed and understood.
[2018-11-25 08:03] VITALS: BP 106/59
[2018-11-25] MEDS: Lisinopril 20mg tab ORAL SCH (08:08)
[2018-11-25] MEDS: dilTIAZem HCl CD 120mg cap ORAL SCH (08:08)
[2018-11-25] MEDS: Eliquis 5mg tablet ORAL SCH ×2 (08:08→17:23)
[2018-11-25] MEDS: Depakote ER 500mg tab ORAL SCH (08:09)
--- NOTE | 2018-11-25 08:16 | NUR ---
CASE MANAGEMENT:REVIEW 11/25/18 SI: ANEMIA. AFIB W/RVR NON COMPLIANCE 98.1 70 18 106/59 97% ON RA IS: DEPAKOTE 500MG PO QD ZYPREXA 30MG PO QHS NEURONTIN 100MG PO QHS REMERON 30MG PO QHS LISINOPRIL PO QD SYNTHROID PO QD CARDIZEM PO QD LOPRESSOR PO Q12 ELIQUIS PO BID : MED/SURG STATUS 4 EAST DCP: FROM [facility] NAYAK PLAN: HAS BEEN ON PSYCH MEDS SINCE 11/12/18
--- NOTE | 2018-11-25 08:18 | NUR ---
DISCHARGE PLANNING SPOKE WITH PUBLIC GUARDIAN,DEPUTY ISRAEL SESAY T: [phone] MS SESAY WILL SPEAK WITH [facility] ENGINEER, [employer], REGARDING PAPERWORK NEEDED TO [facility] MS SESAY SAID SHE WOULD CALL THIS PRODUCT APPLICATIONS ENGINEER BACK
--- NOTE | 2018-11-25 10:50 | NUR ---
NURSE NOTES:Ambulated in hallway using walker with staff stand by assist,tolerated activity well.
[2018-11-25 11:31] VITALS: BP 106/67
--- NOTE | 2018-11-25 13:35 | NUR ---
*-* INSURANCE *-* UPDATED REVIEWS HAVE BEEN FAXED TO: [facility] / [facility] [place] USE THE SS# THE REF#..... NO MEDICAL MICROBIOLOGIST ASSIGNED P- [phone].... F- [phone]...REVIEW/CLINICAL
--- NOTE | 2018-11-25 13:56 | NUR ---
RD ASSESSMENT & RECOMMENDATIONS SEE CARE ACTIVITY FOR COMPLETE ASSESSMENT DAILY ESTIMATED NEEDS: Needs based on cardiac, possible wt loss/ 49kg 30-35 kcals/kg 2974-3584 total kcals 1-1.5 g protein/kg 49-74 g total protein 25-30 mL/kg 9349-9576 total fluid mLs NUTRITION DIAGNOSIS: Increased kcal/prot intake needs R/T wt loss as evidenced by pt w/ possible significant wt loss of 23lbs/17.5% in 4 months, currently w/ variable meal intake (CURRENT DIET: CARDIAC, mech soft chopped + Ensure TID) PO DIET RECOMMENDATIONS: Liberalized REGULAR w/ poor and variable PO intake ADDITIONAL RECOMMENDATIONS: * Calibrated bedscale wt or standing wt of accurate CBW * Weekly wt monitoring given possible recent wt loss * Ensure Enlive TID w/ meals (350kcal/20g prot per bottle) * Monitor po intake trend- rec pm snacks when more awake * Monitor lytes, replete as needed * IVF w/ IV access: BUN elev * Vit D 1000IU daily (low Vit D25=29)
[2018-11-25 16:05] VITALS: BP 107/68
--- NOTE | 2018-11-25 16:43 | Hematology/Onc Progress Note ---
Assessment/Plan Assessment/Plan # Anemia of chronic disease due to underlying chronic medical issues, multifactorial --> Anemia workup has been reviewed. Ferritin 83, TIBC 242 --> No evidence of hemolysis is noted, peripheral smear has been reviewed. --> Hgb goal >7. Transfuse prn. --> Epogen or iron at this time is not particularly indicated --> Medications have been reviewed --> hgb trend 14.1-->12.5--> 12.3-->11 # Thrombocytopenia - potential causes multifactorial, evaluate liver and viral etiologies to begin, also could be related to underlying medications patient has received. --> Hep panel and HIV on PRIOR admission was negative --> US abd negative for cirrhosis and hsm --> Peripheral smear ordered to evaluate for blasts/schistocytes, none noted --> abx and other meds have been reviewed --> ok for ppx if plt >50k w/ either heparin or lovenox --> Transfuse if Plt < 20k and fever, or if Plt < 10k without fever --> Plt trend 118-->169k-->187k--> 102K->133k-->154k # Atelectasis, optimize pulmonary hygiene/mobilize as tolerated --> on cxr appears stable --> per pulm recs # Paroxysmal AFib, per cardiology recs--> on noac --> on eliquis # Hypertension --> controlled, sbp goal < 140 # Hypothyroidism. # Lactic acidosis, resolved. # MACARENA, resolved. # Placement pending The timing of this note does not necessarily reflect the time of the patient was seen. Greatly appreciate consultation! Subjective Constitutional: Denies: no symptoms, chills, fever, malaise, weakness, other HEENT: Denies: no symptoms, eye pain, blurred vision, tearing, double vision, ear pain, ear discharge, nose pain, nose congestion, throat pain, throat swelling, mouth pain, mouth swelling, other Cardiovascular: Denies: no symptoms, chest pain, edema, irregular heart rate, lightheadedness, palpitations, syncope, other Respiratory: Denies: no symptoms, cough, shortness of breath, SOB with excertion, SOB at rest, sputum, wheezing, other Gastrointestinal/Abdominal: Denies: no symptoms, abdomen distended, abdominal pain, black stools, tarry stools, blood in stool, constipated, diarrhea, difficulty swallowing, nausea, poor appetite, poor fluid intake, rectal bleeding , vomiting, other Genitourinary: Denies: no symptoms, burning, discharge, frequency, flank pain, hematuria, incontinence, pain, urgency, other Neurologic/Psychiatric: Denies: no symptoms, anxiety, depressed, emotional problems, headache, numbness, paresthesia, pre-existing deficit, seizure, tingling, tremors, weakness, other Endocrine: Denies: no symptoms, excessive sweating, flushing, intolerance to cold, intolerance to heat, increased hunger, increased thirst, increased urine, unexplained weight gain, unexplained weight loss, other Allergies: Coded Allergies: RISPERIDONE (Unverified Allergy, Unknown, 07/04/18) ZIPRASIDONE (Verified Allergy, Unknown, 06/30/18) Uncoded Allergies: RESPERIDONE (Allergy, Unknown, 06/30/18) Subjective 11/06: Pt resting in bed. No acute distress. DC planning. 11/08: Pt asleep in bed. No acute events. 11/10: Pt stable, no signs of acute distress or SOB. Venous duplex negative. 11/11: Pt resting in bed. Afebrile, no sob. MRI brain pending. 11/12: Pt in bed, sleeping. No respiratory distress noted. DC planning. 11/13: Pt awake and alert, refused morning meds. No signs of SOB or pain observed. Plt count significantly improved overnight. 11/15: Pt denies pain, no complaints of dyspnea 11/17: Pt resting in bed no chest pain or dyspnea, no other complaints 11/18: unable to place picc given do not have consent 11/20: no acute events reported. 11/21: pt refused am labs as well as am meds. h/h stable from prior labs. 11/22: pt no acute distress. Afebrile, VS reviewed. 11/23: no events reported, no f/c noted 11/24: refusing to participate in exam, labs have been reviewed 11/25: eating ensure this am, discharge planning pending, deandre FERRARI Objective Objective Current Medications Medications (Trade) Dose Ordered Sig/Eduardo Route PRN Reason Start Time Stop Time Status Last Admin Dose Admin Apixaban (Eliquis) 5 mg BID ORAL 11/07/18 18:00 12/05/18 08:59 11/25/18 08:08 Diltiazem HCl (Cardizem CD) 120 mg DAILY ORAL 11/21/18 10:50 12/21/18 10:49 11/25/18 08:08 Divalproex Sodium (Depakote ER) 500 mg DAILY ORAL 11/19/18 09:00 12/12/18 08:59 11/25/18 08:09 Gabapentin (Neurontin) 100 mg BEDTIME ORAL 11/18/18 21:00 12/18/18 20:59 11/24/18 22:02 Hydralazine HCl (Apresoline) 50 mg QIDPRN PRN ORAL HTN SBP >155 11/07/18 19:30 12/07/18 19:29 11/09/18 16:23 Levothyroxine Sodium (Synthroid) 50 mcg DAILY@0630 ORAL 11/13/18 06:30 12/13/18 06:29 11/25/18 06:33 Lisinopril (Prinivil) 20 mg DAILY ORAL 11/22/18 09:00 12/22/18 08:59 11/25/18 08:08 Lisinopril (Zestril) 10 mg QPM@1800 ORAL 11/15/18 18:00 12/15/18 17:59 11/24/18 17:41 Metoprolol Tartrate (Lopressor) 100 mg Q12HR ORAL 11/21/18 21:00 12/05/18 18:59 11/25/18 08:09 Mirtazapine (Remeron) 30 mg BEDTIME ORAL 11/12/18 21:00 12/12/18 20:59 11/24/18 22:02 Olanzapine (ZyPREXA) 30 mg BEDTIME ORAL 11/18/18 21:00 12/12/18 08:59 11/24/18 22:02 Last 24 Hour Vital Signs Date Time Temp Pulse Resp B/P (MAP) Pulse Ox O2 Delivery O2 Flow Rate FiO2 11/25/18 16:05 97.4 71 18 107/68 (81) 99 11/25/18 11:31 97.7 70 19 106/67 (80) 96 11/25/18 09:00 59 71 71 11/25/18 08:09 70 106/59 11/25/18 08:08 106/59 11/25/18 08:08 70 106/59 11/25/18 08:03 98.1 70 18 106/59 (75) 97 11/25/18 07:13 Room Air 11/25/18 04:00 97.4 74 18 102/63 (76) 98 11/25/18 00:00 98.8 67 18 98/60 (73) 96 11/24/18 21:00 66 99/58 11/24/18 21:00 Room Air 11/24/18 20:00 98.1 66 18 99/58 (72) 96 11/24/18 17:41 100/52 11/24/18 16:00 97.4 55 20 100/52 (68) 95 11/24/18 12:00 97.3 68 18 103/61 (75) 97 11/24/18 09:34 130/83 11/24/18 09:33 75 134/82 11/24/18 09:32 70 130/83 11/24/18 09:00 59 70 75 11/24/18 09:00 58 114/62 11/24/18 09:00 58 114/62 11/24/18 09:00 Room Air 11/24/18 08:00 97.6 58 20 114/62 (79) 96 11/24/18 04:00 97.9 64 17 90/56 (67) 95 11/24/18 00:00 98.4 67 18 90/54 (66) 94 11/23/18 21:00 Room Air 11/23/18 20:30 68 91/61 11/23/18 20:00 98.6 68 17 91/61 (71) 95 11/23/18 17:28 92/56 Intake and Output 11/24/18 11/25/18 19:00 07:00 Intake Total 360 ml 800 ml Output Total 300 ml Balance 60 ml 800 ml Intake Oral 360 ml 800 ml Output Urine Total 300 ml # Voids 2 Labs Test 11/25/18 05:56 White Blood Count 5.8 K/UL (4.8-10.8) Red Blood Count 3.81 M/UL (4.70-6.10) Hemoglobin 11.2 G/DL (14.2-18.0) Hematocrit 33.8 % (42.0-52.0) Mean Corpuscular Volume 89 FL (80-99) Mean Corpuscular Hemoglobin 29.4 PG (27.0-31.0) Mean Corpuscular Hemoglobin Concent 33.1 G/DL (32.0-36.0) Red Cell Distribution Width 15.7 % (11.6-14.8) Platelet Count 154 K/UL (150-450) Mean Platelet Volume 6.4 FL (6.5-10.1) Neutrophils (%) (Auto) 47.4 % (45.0-75.0) Lymphocytes (%) (Auto) 32.9 % (20.0-45.0) Monocytes (%) (Auto) 12.8 % (1.0-10.0) Eosinophils (%) (Auto) 5.4 % (0.0-3.0) Basophils (%) (Auto) 1.5 % (0.0-2.0) Height (Feet): 5 Height (Inches): 6.00 Weight (Pounds): 120 Objective PHYSICAL EXAMINATION: VITAL SIGNS: Have been reviewed. HEENT: PERRLA. NECK: Supple. No lymphadenopathy. CHEST: Clear to auscultation. CARDIOVASCULAR: Regular rate and rhythm. No murmurs or extra sounds. GASTROINTESTINAL: Soft, nontender, and nondistended. No organomegaly. EXTREMITIES: No edema. Moves all four extremities. NEUROLOGIC: Sensory intact to light touch. Reflexes are equal on both sides. Bennie Goss MD Nov 25, 2018 16:43
[2018-11-25] MEDS: Lisinopril 10mg tab ORAL SCH (17:23)
--- NOTE | 2018-11-25 18:30 | Progress Note ---
DATE: 11/25/2018 SUBJECTIVE: The patient is the same. The patient, withdrawn, weak, isolative. Not interactive. MENTAL STATUS EXAMINATION: Alert and oriented times self, place, and situation. Mood is dysphoric. Affect is constricted, congruent with mood. Thought process is concrete. Thought content, no suicidal or homicidal ideations. ASSESSMENT: Major depressive disorder. PLAN: 1. We will continue current medications. 2. Provide the patient with reality orientation and supportive therapy. Anna Mathew M.D. DR: JUAN JOB#: [id number] CC:
--- NOTE | 2018-11-25 19:38 | NUR ---
HAND-OFF: Report given to TALON JARAMILLO.PATIENT STABLE.
[2018-11-25 20:00] VITALS: BP 101/64
--- NOTE | 2018-11-25 20:24 | General Progress Note ---
Assessment/Plan Status: stable, unchanged Assessment/Plan: 63 y/o man with hx of paroxysmal atrial fibrillation, presented to the hospital with pre-syncope, found to have rapid atrial fibrillation. #Paroxysmal Atrial Fibrillation #Atrial fibrillation with RVR - Cont beta zack and Diltiazem for rate control - holding parameters placed. - Cont NOAC.. - echo did not show any remarkable changes - Apprec cardiology recs # Orthostatic hypotension - Serial Orthostatic vital signs - Monitor OFF IVF and follow up. #Anemia due to chronic illness #Thrombocytopenia - Hgb and platelet count appeared to be at baseline, seen by Hematology, no new changes recommended. Labs in AM #unstable gait -continue PT ( patient refused treatment 11/20 and not seen since then by PT ) - PATIENT WILL NEED TO BE WITHOUT FWW in order to return to his [facility]. Otherwise, will need new placement. vault manager follow up is needed. SW note for conservator reviewed. #Behavorial disorder -psych meds restarted -psychiatry consulted time of note may not reflect time of encounter Subjective Date patient seen: Nov 25, 2018 Allergies: Coded Allergies: RISPERIDONE (Unverified Allergy, Unknown, 07/04/18) ZIPRASIDONE (Verified Allergy, Unknown, 06/30/18) Uncoded Allergies: RESPERIDONE (Allergy, Unknown, 06/30/18) Subjective Pt with unstable gait, cont PT daily. No chest pain or dyspnea, no other complaints, no tele events. Refused MRI, appetite improved today, took meds this am, BP improved, more interactive today, ambulating, Objective Last 24 Hour Vital Signs Date Time Temp Pulse Resp B/P (MAP) Pulse Ox O2 Delivery O2 Flow Rate FiO2 11/25/18 17:23 107/68 11/25/18 16:05 97.4 71 18 107/68 (81) 99 11/25/18 11:31 97.7 70 19 106/67 (80) 96 11/25/18 09:00 59 71 71 11/25/18 08:09 70 106/59 11/25/18 08:08 106/59 11/25/18 08:08 70 106/59 11/25/18 08:03 98.1 70 18 106/59 (75) 97 11/25/18 07:13 Room Air 11/25/18 04:00 97.4 74 18 102/63 (76) 98 11/25/18 00:00 98.8 67 18 98/60 (73) 96 11/24/18 21:00 66 99/58 11/24/18 21:00 Room Air Intake and Output 11/24/18 11/25/18 19:00 07:00 Intake Total 360 ml 800 ml Output Total 300 ml Balance 60 ml 800 ml Intake Oral 360 ml 800 ml Output Urine Total 300 ml # Voids 2 Laboratory Tests 11/25/18 05:56: White Blood Count 5.8, Red Blood Count 3.81L, Hemoglobin 11.2L, Hematocrit 33.8L , Mean Corpuscular Volume 89, Mean Corpuscular Hemoglobin 29.4, Mean Corpuscular Hemoglobin Concent 33.1, Red Cell Distribution Width 15.7H, Platelet Count 154, Mean Platelet Volume 6.4L, Neutrophils (%) (Auto) 47.4, Lymphocytes (%) (Auto) 32.9, Monocytes (%) (Auto) 12.8H, Eosinophils (%) (Auto) 5.4H, Basophils (%) (Auto) 1.5 Height (Feet): 5 Height (Inches): 6.00 Weight (Pounds): 120 Objective General: alert, cooperative, no distress, appears stated age Head: normocephalic, without obvious abnormality, atraumatic Eyes: conjunctivae/corneas clear. PERRL, EOM's intact Throat: lips, mucosa, and tongue normal. MMM Neck: supple, symmetrical, trachea midline, and no JVD Lungs: clear to auscultation bilaterally Heart: regular rate and rhythm, S1, S2 normal, no murmur, click, rub or gallop Abdomen: soft, non-tender, non-distended, bowel sounds normal; no masses or organomegaly Extremities: extremities normal, atraumatic, no cyanosis or edema Pulses: 2+ and symmetric Skin: skin color, texture, turgor normal; no rashes or lesions Neurologic: grossly normal, no focal deficits Anny Cole MD Nov 25, 2018 20:24
[2018-11-25] MEDS: OLANZapine 10mg tab ORAL SCH (21:46)
--- NOTE | 2018-11-25 23:06 | Neurology Progress Note ---
Interim History Interim History ROS Limited/Unobtainable: Yes Complaints: AMS Events: no changes Interim History remains very unstable, working with pt Objective Physical Exam Last Vital Signs Date Time Temp Pulse Resp B/P (MAP) Pulse Ox O2 Delivery O2 Flow Rate FiO2 11/25/18 21:44 70 109/69 11/25/18 20:00 98.4 18 97 11/25/18 07:13 Room Air Laboratory Tests Test 11/25/18 05:56 White Blood Count 5.8 K/UL (4.8-10.8) Red Blood Count 3.81 M/UL (4.70-6.10) L Hemoglobin 11.2 G/DL (14.2-18.0) L Hematocrit 33.8 % (42.0-52.0) L Mean Corpuscular Volume 89 FL (80-99) Mean Corpuscular Hemoglobin 29.4 PG (27.0-31.0) Mean Corpuscular Hemoglobin Concent 33.1 G/DL (32.0-36.0) Red Cell Distribution Width 15.7 % (11.6-14.8) H Platelet Count 154 K/UL (150-450) Mean Platelet Volume 6.4 FL (6.5-10.1) L Neutrophils (%) (Auto) 47.4 % (45.0-75.0) Lymphocytes (%) (Auto) 32.9 % (20.0-45.0) Monocytes (%) (Auto) 12.8 % (1.0-10.0) H Eosinophils (%) (Auto) 5.4 % (0.0-3.0) H Basophils (%) (Auto) 1.5 % (0.0-2.0) General: well developed, well nourished, no acute distress Head: normocophalic, atraumatic Neck: no rigidity EENT: benign Neurologic Exam Mental Status: awake, alert, oriented x4, normal cognition, good mathematical skills, normal recent memory, normal remote memory, preserved visuospatial function Speech: normal speech, no dysarthia Language: normal language, no aphasia Cranial Nerve II: fundus normal, visual francis, no papilledema Cranial Nerves III, IV, : PERRLA, EOMI, pupils Cranial Nerve V: normal facial sensations, temporales function normal, masseters function normal, pterygoids function normal Cranial Nerve VII: no facial asymmetry, normal facial expressions Cranial Nerve VIII: normal hearing, no nystagmus Cranial Nerve IX: normal palate elevation, gag response Cranial Nerve X: no voice hoarseness Cranial Nerve XI: SCM symmetric, trapezii function normal Cranial Nerve XII: tongue midline, no tongue atrophy/fasciculations Motor System: normal muscle tone, strength 5/5, no involuntary movement, no muscle wasting Sensory: normal pinprick, normal light touch, normal position sense, normal graphesthesia Coordination: normal finger to nose bilaterally, normal heel to ramsay bilaterally, negative Romberg test Deep Tendon Reflexes: 2+ bicep (L), 2+ bicep (R), 2+ tricep (L), 2+ tricep (R) , 2+ brachioradialis (L), 2+ brachioradialis (R), 2+ knee (L), 2+ knee (R), 2+ ankle (L), 2+ ankle (R) Stance: normal Gait: stable, normal regular, heel + toe gait Impression/Recommendations Problems: (1) Anemia (2) Pre-syncope (3) Hyponatremia (4) Dehydration (5) Syncope (6) Parkinsonism (7) HTN (hypertension) (8) Hypothyroid (9) Atrial fibrillation Status: stable, unchanged Diagnostic Impression Parkinsonism stable - trail of sinemet as outpatient once metabolic abnormalities resolve PT OT Cont NOAC will benefit from rehab placement Serjio Sharpe MD Nov 25, 2018 23:06
[2018-11-26] VITALS: BP 90/52
--- NOTE | 2018-11-26 07:00 | NUR ---
HAND-OFF: Report given to FITZ JARAMILLO.
[2018-11-26 08:00] VITALS: BP 109/72
[2018-11-26] MEDS: Lisinopril 20mg tab ORAL SCH (08:44)
[2018-11-26] MEDS: Eliquis 5mg tablet ORAL SCH ×2 (08:45→17:36)
[2018-11-26] MEDS: dilTIAZem HCl CD 120mg cap ORAL SCH (08:45)
[2018-11-26] MEDS: Depakote ER 500mg tab ORAL SCH (08:45)
--- NOTE | 2018-11-26 10:10 | Hematology/Onc Progress Note ---
Assessment/Plan Assessment/Plan # Anemia of chronic disease due to underlying chronic medical issues, multifactorial --> Anemia workup has been reviewed. Ferritin 83, TIBC 242 --> No evidence of hemolysis is noted, peripheral smear has been reviewed. --> Hgb goal >7. Transfuse prn. --> Epogen or iron at this time is not particularly indicated --> Medications have been reviewed --> hgb trend 14.1-->12.5--> 12.3-->11 # Thrombocytopenia - potential causes multifactorial, evaluate liver and viral etiologies to begin, also could be related to underlying medications patient has received. --> Hep panel and HIV on PRIOR admission was negative --> US abd negative for cirrhosis and hsm --> Peripheral smear ordered to evaluate for blasts/schistocytes, none noted --> abx and other meds have been reviewed --> ok for ppx if plt >50k w/ either heparin or lovenox --> Transfuse if Plt < 20k and fever, or if Plt < 10k without fever --> Plt trend 118-->169k-->187k--> 102K->133k-->154k # Atelectasis, optimize pulmonary hygiene/mobilize as tolerated --> on cxr appears stable --> per pulm recs # Paroxysmal AFib, per cardiology recs--> on noac --> on eliquis # Hypertension --> controlled, sbp goal < 140 # Hypothyroidism. # Lactic acidosis, resolved. # MACARENA, resolved. # Placement pending The timing of this note does not necessarily reflect the time of the patient was seen. Greatly appreciate consultation! Subjective HEENT: Denies: no symptoms, eye pain, blurred vision, tearing, double vision, ear pain, ear discharge, nose pain, nose congestion, throat pain, throat swelling, mouth pain, mouth swelling, other Cardiovascular: Denies: no symptoms, chest pain, edema, irregular heart rate, lightheadedness, palpitations, syncope, other Respiratory: Denies: no symptoms, cough, shortness of breath, SOB with excertion, SOB at rest, sputum, wheezing, other Gastrointestinal/Abdominal: Denies: no symptoms, abdomen distended, abdominal pain, black stools, tarry stools, blood in stool, constipated, diarrhea, difficulty swallowing, nausea, poor appetite, poor fluid intake, rectal bleeding , vomiting, other Genitourinary: Denies: no symptoms, burning, discharge, frequency, flank pain, hematuria, incontinence, pain, urgency, other Neurologic/Psychiatric: Denies: no symptoms, anxiety, depressed, emotional problems, headache, numbness, paresthesia, pre-existing deficit, seizure, tingling, tremors, weakness, other Endocrine: Denies: no symptoms, excessive sweating, flushing, intolerance to cold, intolerance to heat, increased hunger, increased thirst, increased urine, unexplained weight gain, unexplained weight loss, other Hematologic/Lymphatic: Denies: no symptoms, anemia, easy bleeding, easy bruising, adenopathy, other Allergies: Coded Allergies: RISPERIDONE (Unverified Allergy, Unknown, 07/04/18) ZIPRASIDONE (Verified Allergy, Unknown, 06/30/18) Uncoded Allergies: RESPERIDONE (Allergy, Unknown, 06/30/18) Subjective 11/06: Pt resting in bed. No acute distress. DC planning. 11/08: Pt asleep in bed. No acute events. 11/10: Pt stable, no signs of acute distress or SOB. Venous duplex negative. 11/11: Pt resting in bed. Afebrile, no sob. MRI brain pending. 11/12: Pt in bed, sleeping. No respiratory distress noted. DC planning. 11/13: Pt awake and alert, refused morning meds. No signs of SOB or pain observed. Plt count significantly improved overnight. 11/15: Pt denies pain, no complaints of dyspnea 11/17: Pt resting in bed no chest pain or dyspnea, no other complaints 11/18: unable to place picc given do not have consent 11/20: no acute events reported. 11/21: pt refused am labs as well as am meds. h/h stable from prior labs. 11/22: pt no acute distress. Afebrile, VS reviewed. 11/23: no events reported, no f/c noted 11/24: refusing to participate in exam, labs have been reviewed 11/25: eating ensure this am, discharge planning pending, dw CM 11/26: on noac, continues, no bleeding, hgb is 11.2 Objective Objective Current Medications Medications (Trade) Dose Ordered Sig/Eduardo Route PRN Reason Start Time Stop Time Status Last Admin Dose Admin Apixaban (Eliquis) 5 mg BID ORAL 11/07/18 18:00 12/05/18 08:59 11/26/18 08:45 Diltiazem HCl (Cardizem CD) 120 mg DAILY ORAL 11/21/18 10:50 12/21/18 10:49 11/26/18 08:45 Divalproex Sodium (Depakote ER) 500 mg DAILY ORAL 11/19/18 09:00 12/12/18 08:59 11/26/18 08:45 Gabapentin (Neurontin) 100 mg BEDTIME ORAL 11/18/18 21:00 12/18/18 20:59 11/25/18 21:45 Hydralazine HCl (Apresoline) 50 mg QIDPRN PRN ORAL HTN SBP >155 11/07/18 19:30 12/07/18 19:29 11/09/18 16:23 Levothyroxine Sodium (Synthroid) 50 mcg DAILY@0630 ORAL 11/13/18 06:30 12/13/18 06:29 11/25/18 06:33 Lisinopril (Prinivil) 20 mg DAILY ORAL 11/22/18 09:00 12/22/18 08:59 11/26/18 08:44 Lisinopril (Zestril) 10 mg QPM@1800 ORAL 11/15/18 18:00 12/15/18 17:59 11/25/18 17:23 Metoprolol Tartrate (Lopressor) 100 mg Q12HR ORAL 11/21/18 21:00 12/05/18 18:59 11/26/18 08:45 Mirtazapine (Remeron) 30 mg BEDTIME ORAL 11/12/18 21:00 12/12/18 20:59 11/25/18 21:45 Olanzapine (ZyPREXA) 30 mg BEDTIME ORAL 11/18/18 21:00 12/12/18 08:59 11/25/18 21:46 Last 24 Hour Vital Signs Date Time Temp Pulse Resp B/P (MAP) Pulse Ox O2 Delivery O2 Flow Rate FiO2 11/26/18 08:45 77 109/72 11/26/18 08:45 77 109/72 11/26/18 08:44 109/72 11/26/18 08:00 97.7 77 19 109/72 (84) 97 11/26/18 00:00 98.6 107 18 90/52 (65) 93 11/25/18 21:44 70 109/69 11/25/18 21:00 Room Air 11/25/18 20:00 98.4 74 18 101/64 (76) 97 11/25/18 17:23 107/68 11/25/18 16:05 97.4 71 18 107/68 (81) 99 11/25/18 11:31 97.7 70 19 106/67 (80) 96 11/25/18 09:00 59 71 71 11/25/18 08:09 70 106/59 11/25/18 08:08 106/59 11/25/18 08:08 70 106/59 11/25/18 08:03 98.1 70 18 106/59 (75) 97 11/25/18 07:13 Room Air 11/25/18 04:00 97.4 74 18 102/63 (76) 98 11/25/18 00:00 98.8 67 18 98/60 (73) 96 11/24/18 21:00 66 99/58 11/24/18 21:00 Room Air 11/24/18 20:00 98.1 66 18 99/58 (72) 96 11/24/18 17:41 100/52 11/24/18 16:00 97.4 55 20 100/52 (68) 95 11/24/18 12:00 97.3 68 18 103/61 (75) 97 Intake and Output 11/25/18 11/26/18 19:00 07:00 Intake Total 956 ml 720 ml Balance 956 ml 720 ml Intake Oral 956 ml 720 ml # Voids 5 Labs Test 11/25/18 05:56 White Blood Count 5.8 K/UL (4.8-10.8) Red Blood Count 3.81 M/UL (4.70-6.10) Hemoglobin 11.2 G/DL (14.2-18.0) Hematocrit 33.8 % (42.0-52.0) Mean Corpuscular Volume 89 FL (80-99) Mean Corpuscular Hemoglobin 29.4 PG (27.0-31.0) Mean Corpuscular Hemoglobin Concent 33.1 G/DL (32.0-36.0) Red Cell Distribution Width 15.7 % (11.6-14.8) Platelet Count 154 K/UL (150-450) Mean Platelet Volume 6.4 FL (6.5-10.1) Neutrophils (%) (Auto) 47.4 % (45.0-75.0) Lymphocytes (%) (Auto) 32.9 % (20.0-45.0) Monocytes (%) (Auto) 12.8 % (1.0-10.0) Eosinophils (%) (Auto) 5.4 % (0.0-3.0) Basophils (%) (Auto) 1.5 % (0.0-2.0) Height (Feet): 5 Height (Inches): 6.00 Weight (Pounds): 120 Objective PHYSICAL EXAMINATION: VITAL SIGNS: Have been reviewed. HEENT: PERRLA. NECK: Supple. No lymphadenopathy. CHEST: Clear to auscultation. CARDIOVASCULAR: Regular rate and rhythm. No murmurs or extra sounds. GASTROINTESTINAL: Soft, nontender, and nondistended. No organomegaly. EXTREMITIES: No edema. Moves all four extremities. NEUROLOGIC: Sensory intact to light touch. Reflexes are equal on both sides. Bennie Goss MD Nov 26, 2018 10:10
[2018-11-26 12:00] VITALS: BP 101/63
--- NOTE | 2018-11-26 12:12 | NUR ---
CASE MANAGEMENT:REVIEW 11/26/18 SI: ANEMIA. AFIB W/RVR NON COMPLIANCE 97.7 77 19 109/72 97% ON RA IS: DEPAKOTE 500MG PO QD ZYPREXA 30MG PO QHS NEURONTIN 100MG PO QHS REMERON 30MG PO QHS LISINOPRIL PO QD SYNTHROID PO QD CARDIZEM PO QD LOPRESSOR PO Q12 ELIQUIS PO BID : MED/SURG STATUS 4 EAST DCP: FROM [facility] PLAN: HAS BEEN ON PSYCH MEDS SINCE 11/12/18
--- NOTE | 2018-11-26 12:13 | NUR ---
DISCHARGE PLANNING RECEIVED CONSERVATORSHIP PAPER WORK FROM [employer] ALSO RECEIVED LETTER FROM [employer] RE[facility] WAITING FOR RESPONSE AND BED AVAILABILITY
--- NOTE | 2018-11-26 13:15 | NUR ---
HAND-OFF: Report given to CODY JARAMILLO.RE:CONTINUITY OF CARE.BEDSIDE ROUNDS DONE.PT.SITTING IN CHAIR. Addendum: 11/26/18 at 1316 by CESAR GRANT RN NURSE NOTES:ABOVE NOTES ADDRESSED FOR ANOTHER PATIENT.
--- NOTE | 2018-11-26 13:18 | NUR ---
HAND-OFF: Report given to CODY JARAMILLO.RE:CONTINUITY OF CARE,BEDSIDE ROUNDS DONE,PT STABLE SLEEPING..
--- NOTE | 2018-11-26 15:40 | NUR ---
P.T NOTE: PATIENT REFUSED TO PARTICIPATE IN P.T SESSION. SEVERAL ATTEMPTS MADE HOWEVER PATIENT CONTINUE TO REFUSE. WILL REATTEMPT.
[2018-11-26 16:00] VITALS: BP 100/79
--- NOTE | 2018-11-26 16:12 | NUR ---
*-* INSURANCE *-* UPDATED REVIEWS HAVE BEEN FAXED TO: [facility] / [facility] [place] USE THE SS# THE REF#..... 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 F- [phone]...REVIEW/CLINICAL
[2018-11-26] MEDS: Lisinopril 10mg tab ORAL SCH (17:37)
[2018-11-26 20:00] VITALS: BP_SYST 100; BP_SYST 90; BP_DIAS 52
--- NOTE | 2018-11-26 20:07 | NUR ---
NURSE NOTES: Pt received earlier in shift from Lavonne , pt was cooperative, refused dinner kitchen phoned for ensure. BP medications not given, bp low. Able to verbalize known needs call light in reach.
--- NOTE | 2018-11-26 20:11 | NUR ---
NURSE NOTES:Patient received from Fela Coles Patient A/A OX3 with episode of forgetful .Patient denies any pain at this time . no s/s of distress noted . patient no iv access when received MD aware . Patient ambulated in hallway with staff . safety/ fall Implemented . call light within reach . bed in low position at all times . Bed alarm on . will continue to monitor .
--- NOTE | 2018-11-26 20:11 | NUR ---
HAND-OFF: Report given to Cathi SNYDER.
--- NOTE | 2018-11-26 20:23 | Neurology Progress Note ---
Interim History Interim History ROS Limited/Unobtainable: Yes Complaints: AMS Events: no changes Interim History feeling better Objective Physical Exam Last Vital Signs Date Time Temp Pulse Resp B/P (MAP) Pulse Ox O2 Delivery O2 Flow Rate FiO2 11/26/18 17:37 98/70 11/26/18 16:00 97.8 72 11/26/18 12:00 19 97 11/26/18 08:45 Room Air General: well developed, well nourished, no acute distress Head: normocophalic, atraumatic Neck: no rigidity EENT: benign Neurologic Exam Mental Status: awake, alert, oriented x4, normal cognition, good mathematical skills, normal recent memory, normal remote memory, preserved visuospatial function Speech: normal speech, no dysarthia Language: normal language, no aphasia Cranial Nerve II: fundus normal, visual francis, no papilledema Cranial Nerves III, IV, : PERRLA, EOMI, pupils Cranial Nerve V: normal facial sensations, temporales function normal, masseters function normal, pterygoids function normal Cranial Nerve VII: no facial asymmetry, normal facial expressions Cranial Nerve VIII: normal hearing, no nystagmus Cranial Nerve IX: normal palate elevation, gag response Cranial Nerve X: no voice hoarseness Cranial Nerve XI: SCM symmetric, trapezii function normal Cranial Nerve XII: tongue midline, no tongue atrophy/fasciculations Motor System: normal muscle tone, strength 5/5, no involuntary movement, no muscle wasting Sensory: normal pinprick, normal light touch, normal position sense, normal graphesthesia Coordination: normal finger to nose bilaterally, normal heel to ramsay bilaterally, negative Romberg test Deep Tendon Reflexes: 2+ bicep (L), 2+ bicep (R), 2+ tricep (L), 2+ tricep (R) , 2+ brachioradialis (L), 2+ brachioradialis (R), 2+ knee (L), 2+ knee (R), 2+ ankle (L), 2+ ankle (R) Stance: normal Gait: stable, normal regular, heel + toe gait Impression/Recommendations Problems: (1) Anemia (2) Pre-syncope (3) Hyponatremia (4) Dehydration (5) Syncope (6) Parkinsonism (7) HTN (hypertension) (8) Hypothyroid (9) Atrial fibrillation Status: stable, unchanged Diagnostic Impression Parkinsonism stable - trail of sinemet as outpatient once metabolic abnormalities resolve PT OT Cont NOAC will benefit from rehab placement Serjio Sharpe MD Nov 26, 2018 20:23
--- NOTE | 2018-11-26 20:28 | General Progress Note ---
Assessment/Plan Status: stable, unchanged Assessment/Plan: 63 y/o man with hx of paroxysmal atrial fibrillation, presented to the hospital with pre-syncope, found to have rapid atrial fibrillation. #Paroxysmal Atrial Fibrillation #Atrial fibrillation with RVR - Cont beta zack and Diltiazem for rate control - holding parameters placed. - Cont NOAC.. - echo did not show any remarkable changes - Apprec cardiology recs # Orthostatic hypotension - Serial Orthostatic vital signs - Monitor OFF IVF and follow up. #Anemia due to chronic illness #Thrombocytopenia - Hgb and platelet count appeared to be at baseline, seen by Hematology, no new changes recommended. Labs in AM #unstable gait -continue PT ( patient refused treatment 11/20 and not seen since then by PT ) - PATIENT WILL NEED TO BE WITHOUT FWW in order to return to his [facility]. Otherwise, will need new placement. emergency department manager follow up is needed. SW note for conservator reviewed. #Behavorial disorder -psych meds restarted -psychiatry consulted time of note may not reflect time of encounter Subjective Date patient seen: Nov 26, 2018 Allergies: Coded Allergies: RISPERIDONE (Unverified Allergy, Unknown, 07/04/18) ZIPRASIDONE (Verified Allergy, Unknown, 06/30/18) Uncoded Allergies: RESPERIDONE (Allergy, Unknown, 06/30/18) Subjective Pt with unstable gait, cont PT daily. No chest pain or dyspnea, no other complaints, no tele events. Refused MRI, appetite improved today, took meds this am, BP improved, more interactive today, ambulating, Objective Last 24 Hour Vital Signs Date Time Temp Pulse Resp B/P (MAP) Pulse Ox O2 Delivery O2 Flow Rate FiO2 11/26/18 17:37 98/70 11/26/18 16:00 97.8 72 100/79 (86) 11/26/18 12:00 97.1 69 19 101/63 (76) 97 11/26/18 09:00 69 79 79 11/26/18 08:45 Room Air 11/26/18 08:45 77 109/72 11/26/18 08:45 77 109/72 11/26/18 08:44 109/72 11/26/18 08:00 97.7 77 19 109/72 (84) 97 11/26/18 00:00 98.6 107 18 90/52 (65) 93 11/25/18 21:44 70 109/69 11/25/18 21:00 Room Air Intake and Output 11/25/18 11/26/18 19:00 07:00 Intake Total 956 ml 720 ml Balance 956 ml 720 ml Intake Oral 956 ml 720 ml # Voids 5 Height (Feet): 5 Height (Inches): 6.00 Weight (Pounds): 120 Objective General: alert, cooperative, no distress, appears stated age Head: normocephalic, without obvious abnormality, atraumatic Eyes: conjunctivae/corneas clear. PERRL, EOM's intact Throat: lips, mucosa, and tongue normal. MMM Neck: supple, symmetrical, trachea midline, and no JVD Lungs: clear to auscultation bilaterally Heart: regular rate and rhythm, S1, S2 normal, no murmur, click, rub or gallop Abdomen: soft, non-tender, non-distended, bowel sounds normal; no masses or organomegaly Extremities: extremities normal, atraumatic, no cyanosis or edema Pulses: 2+ and symmetric Skin: skin color, texture, turgor normal; no rashes or lesions Neurologic: grossly normal, no focal deficits Anny Cole MD Nov 26, 2018 20:28
--- NOTE | 2018-11-26 21:00 | NUR ---
NURSE NOTES:Patient low B/P 90/52 mm hg P86/min. R 17/min. T97.4 SPO2 95%. Lopressor 100mg po not given . Hakeem LEHMAN Notified and aware. Patient eat 100 % house snacks plus Ensure.will continue to monitor .
[2018-11-26] MEDS: OLANZapine 10mg tab ORAL SCH (21:26)
[2018-11-27] VITALS: BP 99/55
[2018-11-27 04:00] VITALS: BP 94/56
--- NOTE | 2018-11-27 06:00 | NUR ---
NURSE NOTES:Patient reused [facility] explain to patient that their blood test result are important to their care. patient still refusing Hakeem LEHMAN Notified and aware.
--- NOTE | 2018-11-27 07:15 | NUR ---
HAND-OFF: Report given to Fela Coles Patient on stable condition.
--- NOTE | 2018-11-27 07:15 | NUR ---
NURSE NOTES: Pt sitting up and bedside eating breakfast. Per report of auger mill operator pt has not been eating , but has been requesting Ensure. Mood elevated today. made eye contact when copywriter entered room. Placement for bed at [place] pending
--- NOTE | 2018-11-27 07:45 | NUR ---
NURSE NOTES: Call placed to janki Sargent pt is on several blood pressure medications and his baseline systolic , has been below 100. B/P pattern has even been into 90s. Awaiting for orders for possible d/c of meds or parameters
[2018-11-27 08:00] VITALS: BP 93/62
[2018-11-27] MEDS: Lisinopril 20mg tab ORAL SCH (09:00)
--- NOTE | 2018-11-27 09:04 | NUR ---
CASE MANAGEMENT:REVIEW 11/27/18 SI: ANEMIA. AFIB W/RVR NON COMPLIANCE 97.8 80 18 94/56 97% ON RA IS: DEPAKOTE 500MG PO QD ZYPREXA 30MG PO QHS NEURONTIN 100MG PO QHS REMERON 30MG PO QHS LISINOPRIL PO QD SYNTHROID PO QD CARDIZEM PO QD LOPRESSOR PO Q12 ELIQUIS PO BID : MED/SURG STATUS 4 EAST DCP: FROM [facility] PLAN: HAS BEEN ON PSYCH MEDS SINCE 11/12/18
--- NOTE | 2018-11-27 09:07 | NUR ---
DISCHARGE PLANNING YESTERDAY FAXED [facility] AND AND LETTER REQUESTING TRANSFER [facility] [place] T: [phone] CALLED AND LEFT [facility] FOR [facility] STOCK CLERK, [place], T:[phone] REQUESTED STATUS OF TRANSFER...AWAIT RETURN CALL CALLED [facility] AND SPOKE WITH MIGUEL T: [phone] WAITING BED TO BECOME AVAILABLE
[2018-11-27] MEDS: Eliquis 5mg tablet ORAL SCH ×2 (09:10→17:56)
[2018-11-27] MEDS: Depakote ER 500mg tab ORAL SCH (09:10)
[2018-11-27] MEDS: dilTIAZem HCl CD 120mg cap ORAL SCH (09:12)
--- NOTE | 2018-11-27 10:18 | Hematology/Onc Progress Note ---
Assessment/Plan Assessment/Plan # Anemia of chronic disease due to underlying chronic medical issues, multifactorial --> Anemia workup has been reviewed. Ferritin 83, TIBC 242 --> No evidence of hemolysis is noted, peripheral smear has been reviewed. --> Hgb goal >7. Transfuse prn. --> Epogen or iron at this time is not particularly indicated --> Medications have been reviewed --> hgb trend 14.1-->12.5--> 12.3-->11-->11.2 # Thrombocytopenia - potential causes multifactorial, evaluate liver and viral etiologies to begin, also could be related to underlying medications patient has received. --> Hep panel and HIV on PRIOR admission was negative --> US abd negative for cirrhosis and hsm --> Peripheral smear ordered to evaluate for blasts/schistocytes, none noted --> abx and other meds have been reviewed --> ok for ppx if plt >50k w/ either heparin or lovenox --> Transfuse if Plt < 20k and fever, or if Plt < 10k without fever --> Plt trend 118-->169k-->187k--> 102K->133k-->154k # Atelectasis, optimize pulmonary hygiene/mobilize as tolerated --> on cxr appears stable --> per pulm recs # Paroxysmal AFib, per cardiology recs--> on noac --> on eliquis # Hypertension --> controlled, sbp goal < 140 # Hypothyroidism. # Lactic acidosis, resolved. # MACARENA, resolved. # Placement pending The timing of this note does not necessarily reflect the time of the patient was seen. Greatly appreciate consultation! Subjective Constitutional: Denies: no symptoms, chills, fever, malaise, weakness, other HEENT: Denies: no symptoms, eye pain, blurred vision, tearing, double vision, ear pain, ear discharge, nose pain, nose congestion, throat pain, throat swelling, mouth pain, mouth swelling, other Cardiovascular: Denies: no symptoms, chest pain, edema, irregular heart rate, lightheadedness, palpitations, syncope, other Gastrointestinal/Abdominal: Denies: no symptoms, abdomen distended, abdominal pain, black stools, tarry stools, blood in stool, constipated, diarrhea, difficulty swallowing, nausea, poor appetite, poor fluid intake, rectal bleeding , vomiting, other Genitourinary: Denies: no symptoms, burning, discharge, frequency, flank pain, hematuria, incontinence, pain, urgency, other Neurologic/Psychiatric: Denies: no symptoms, anxiety, depressed, emotional problems, headache, numbness, paresthesia, pre-existing deficit, seizure, tingling, tremors, weakness, other Endocrine: Denies: no symptoms, excessive sweating, flushing, intolerance to cold, intolerance to heat, increased hunger, increased thirst, increased urine, unexplained weight gain, unexplained weight loss, other Allergies: Coded Allergies: RISPERIDONE (Unverified Allergy, Unknown, 07/04/18) ZIPRASIDONE (Verified Allergy, Unknown, 06/30/18) Uncoded Allergies: RESPERIDONE (Allergy, Unknown, 06/30/18) Subjective 11/06: Pt resting in bed. No acute distress. DC planning. 11/08: Pt asleep in bed. No acute events. 11/10: Pt stable, no signs of acute distress or SOB. Venous duplex negative. 11/11: Pt resting in bed. Afebrile, no sob. MRI brain pending. 11/12: Pt in bed, sleeping. No respiratory distress noted. DC planning. 11/13: Pt awake and alert, refused morning meds. No signs of SOB or pain observed. Plt count significantly improved overnight. 11/15: Pt denies pain, no complaints of dyspnea 11/17: Pt resting in bed no chest pain or dyspnea, no other complaints 11/18: unable to place picc given do not have consent 11/20: no acute events reported. 11/21: pt refused am labs as well as am meds. h/h stable from prior labs. 11/22: pt no acute distress. Afebrile, VS reviewed. 11/23: no events reported, no f/c noted 11/24: refusing to participate in exam, labs have been reviewed 11/25: eating ensure this am, discharge planning pending, dw CM 11/26: on noac, continues, no bleeding, hgb is 11.2 11/27: refusing labs this am, discussed with him importance Objective Objective Current Medications Medications (Trade) Dose Ordered Sig/Eduardo Route PRN Reason Start Time Stop Time Status Last Admin Dose Admin Apixaban (Eliquis) 5 mg BID ORAL 11/07/18 18:00 12/05/18 08:59 11/27/18 09:10 Diltiazem HCl (Cardizem CD) 120 mg DAILY ORAL 11/21/18 10:50 12/21/18 10:49 11/27/18 09:12 Divalproex Sodium (Depakote ER) 500 mg DAILY ORAL 11/19/18 09:00 12/12/18 08:59 11/27/18 09:10 Gabapentin (Neurontin) 100 mg BEDTIME ORAL 11/18/18 21:00 12/18/18 20:59 11/26/18 21:26 Hydralazine HCl (Apresoline) 50 mg QIDPRN PRN ORAL HTN SBP >155 11/07/18 19:30 12/07/18 19:29 11/09/18 16:23 Levothyroxine Sodium (Synthroid) 50 mcg DAILY@0630 ORAL 11/13/18 06:30 12/13/18 06:29 11/27/18 06:38 Lisinopril (Prinivil) 20 mg DAILY ORAL 11/22/18 09:00 12/22/18 08:59 11/26/18 08:44 Lisinopril (Zestril) 10 mg QPM@1800 ORAL 11/15/18 18:00 12/15/18 17:59 11/25/18 17:23 Metoprolol Tartrate (Lopressor) 100 mg Q12HR ORAL 11/21/18 21:00 12/05/18 18:59 11/26/18 08:45 Mirtazapine (Remeron) 30 mg BEDTIME ORAL 11/12/18 21:00 12/12/18 20:59 11/26/18 21:26 Olanzapine (ZyPREXA) 30 mg BEDTIME ORAL 11/18/18 21:00 12/12/18 08:59 11/26/18 21:26 Last 24 Hour Vital Signs Date Time Temp Pulse Resp B/P (MAP) Pulse Ox O2 Delivery O2 Flow Rate FiO2 11/27/18 09:12 69 90/62 11/27/18 09:00 90/62 11/27/18 09:00 62 90/69 11/27/18 04:00 97.8 80 18 94/56 (69) 97 11/27/18 00:00 98.1 84 18 99/55 (70) 97 11/26/18 21:00 Room Air 11/26/18 21:00 86 90/52 11/26/18 20:00 97.4 86 17 90/52 (65) 95 11/26/18 17:37 98/70 11/26/18 16:00 97.8 72 100/79 (86) 11/26/18 12:00 97.1 69 19 101/63 (76) 97 11/26/18 09:00 69 79 79 11/26/18 08:45 Room Air 11/26/18 08:45 77 109/72 11/26/18 08:45 77 109/72 11/26/18 08:44 109/72 11/26/18 08:00 97.7 77 19 109/72 (84) 97 11/26/18 00:00 98.6 107 18 90/52 (65) 93 11/25/18 21:44 70 109/69 11/25/18 21:00 Room Air 11/25/18 20:00 98.4 74 18 101/64 (76) 97 11/25/18 17:23 107/68 11/25/18 16:05 97.4 71 18 107/68 (81) 99 11/25/18 11:31 97.7 70 19 106/67 (80) 96 Intake and Output 11/26/18 11/27/18 18:59 06:59 Intake Total 720 ml 760 ml Output Total 5 ml Balance 720 ml 755 ml Intake Oral 720 ml 760 ml Output Urine Total 5 ml # Voids 4 # Bowel Movements 1 Labs Test 11/25/18 05:56 White Blood Count 5.8 K/UL (4.8-10.8) Red Blood Count 3.81 M/UL (4.70-6.10) Hemoglobin 11.2 G/DL (14.2-18.0) Hematocrit 33.8 % (42.0-52.0) Mean Corpuscular Volume 89 FL (80-99) Mean Corpuscular Hemoglobin 29.4 PG (27.0-31.0) Mean Corpuscular Hemoglobin Concent 33.1 G/DL (32.0-36.0) Red Cell Distribution Width 15.7 % (11.6-14.8) Platelet Count 154 K/UL (150-450) Mean Platelet Volume 6.4 FL (6.5-10.1) Neutrophils (%) (Auto) 47.4 % (45.0-75.0) Lymphocytes (%) (Auto) 32.9 % (20.0-45.0) Monocytes (%) (Auto) 12.8 % (1.0-10.0) Eosinophils (%) (Auto) 5.4 % (0.0-3.0) Basophils (%) (Auto) 1.5 % (0.0-2.0) Height (Feet): 5 Height (Inches): 6.00 Weight (Pounds): 120 Objective PHYSICAL EXAMINATION: VITAL SIGNS: Have been reviewed. HEENT: PERRLA. NECK: Supple. No lymphadenopathy. CHEST: Clear to auscultation. CARDIOVASCULAR: Regular rate and rhythm. No murmurs or extra sounds. GASTROINTESTINAL: Soft, nontender, and nondistended. No organomegaly. EXTREMITIES: No edema. Moves all four extremities. NEUROLOGIC: Sensory intact to light touch. Reflexes are equal on both sides. Bennie Goss MD Nov 27, 2018 10:18
[2018-11-27 12:00] VITALS: BP 93/62
--- NOTE | 2018-11-27 15:11 | NUR ---
NURSE NOTES: made aware of pt refusal of meal 2 to meal texture. Pt has aspiration precautions. Dietary phoned an upgrade from current diet would be regular. Dr Cole did not give further orders , substitute meal shake provided
[2018-11-27 16:00] VITALS: BP 92/63
--- NOTE | 2018-11-27 16:05 | Neurology Progress Note ---
Interim History Interim History ROS Limited/Unobtainable: Yes Complaints: AMS Events: no changes Interim History stable no seizures no KENDALL Objective Physical Exam Last Vital Signs Date Time Temp Pulse Resp B/P (MAP) Pulse Ox O2 Delivery O2 Flow Rate FiO2 11/27/18 12:00 97.9 92 18 93/62 (72) 96 11/26/18 21:00 Room Air General: well developed, well nourished, no acute distress Head: normocophalic, atraumatic Neck: no rigidity EENT: benign Neurologic Exam Mental Status: awake, alert, oriented x4, normal cognition, good mathematical skills, normal recent memory, normal remote memory, preserved visuospatial function Speech: normal speech, no dysarthia Language: normal language, no aphasia Cranial Nerve II: fundus normal, visual francis, no papilledema Cranial Nerves III, IV, : PERRLA, EOMI, pupils Cranial Nerve V: normal facial sensations, temporales function normal, masseters function normal, pterygoids function normal Cranial Nerve VII: no facial asymmetry, normal facial expressions Cranial Nerve VIII: normal hearing, no nystagmus Cranial Nerve IX: normal palate elevation, gag response Cranial Nerve X: no voice hoarseness Cranial Nerve XI: SCM symmetric, trapezii function normal Cranial Nerve XII: tongue midline, no tongue atrophy/fasciculations Motor System: normal muscle tone, strength 5/5, no involuntary movement, no muscle wasting Sensory: normal pinprick, normal light touch, normal position sense, normal graphesthesia Coordination: normal finger to nose bilaterally, normal heel to ramsay bilaterally, negative Romberg test Deep Tendon Reflexes: 2+ bicep (L), 2+ bicep (R), 2+ tricep (L), 2+ tricep (R) , 2+ brachioradialis (L), 2+ brachioradialis (R), 2+ knee (L), 2+ knee (R), 2+ ankle (L), 2+ ankle (R) Stance: normal Gait: stable, normal regular, heel + toe gait Impression/Recommendations Problems: (1) Anemia (2) Pre-syncope (3) Hyponatremia (4) Dehydration (5) Syncope (6) Parkinsonism (7) HTN (hypertension) (8) Hypothyroid (9) Atrial fibrillation Status: stable, unchanged Diagnostic Impression Parkinsonism stable - trail of sinemet as outpatient once metabolic abnormalities resolve PT OT Cont NOAC will benefit from rehab placement Serjio Sharpe MD Nov 27, 2018 16:05
[2018-11-27] MEDS: Lisinopril 10mg tab ORAL SCH (17:56)
--- NOTE | 2018-11-27 18:46 | NUR ---
NURSE NOTES: Pt refused care, refused to have linens changed. Malodorous " Im okay " he stated. Pt slept roughly 5 hours this shift. repositioned self in bed , pt is ambulatory
--- NOTE | 2018-11-27 19:29 | NUR ---
HAND-OFF: Report given to .Frances SNYDER
--- NOTE | 2018-11-27 19:30 | NUR ---
NURSE NOTES: RECEIVED PATIENT LYING IN BED, APPEAR TO BE ASLEEP, AWAKENED TO NAME, DENIES PAIN, NO SIGNS AND SYMPTOMS OF ACUTE CARDIO RESPIRATORY DISTRESS/SHORTNESS OF BREATH, NO EDEMA NOTED. NON COMPLIANT WITH PLAN OF CARE, MD AWARE. NO REPORT OF GI DISCOMFORT, CONTINENT OF B/B, BATHROOM PRIVILEGES WITH SUPERVISION/FWW. SIDE RAILS UP X3/BED IN LOWEST POSITION FOR SAFETY, ENCOURAGED PATIENT TO UTILIZE CALL LIGHT FOR ASSISTANCE, VERBALIZED UNDERSTANDING. FREQUENT ROUNDS FOR NEEDS/SAFETY. NAD. DC PLANNING ONGOING.
--- NOTE | 2018-11-27 19:41 | General Progress Note ---
Assessment/Plan Status: stable, unchanged Assessment/Plan: 63 y/o man with hx of paroxysmal atrial fibrillation, presented to the hospital with pre-syncope, found to have rapid atrial fibrillation. #Paroxysmal Atrial Fibrillation #Atrial fibrillation with RVR - Cont beta zack and Diltiazem for rate control - holding parameters placed. - Cont NOAC.. - echo did not show any remarkable changes - Apprec cardiology recs # Orthostatic hypotension - Serial Orthostatic vital signs - Monitor OFF IVF and follow up. #Anemia due to chronic illness #Thrombocytopenia - Hgb and platelet count appeared to be at baseline, seen by Hematology, no new changes recommended. Labs in AM #unstable gait -continue PT ( patient refused treatment 11/20 and not seen since then by PT ) - PATIENT WILL NEED TO BE WITHOUT FWW in order to return to his [facility]. Otherwise, will need new placement. marketing production manager follow up is needed. SW note for conservator reviewed. #Behavorial disorder -psych meds restarted -psychiatry consulted time of note may not reflect time of encounter Subjective Date patient seen: Nov 27, 2018 ROS Limited/Unobtainable: No Allergies: Coded Allergies: RISPERIDONE (Unverified Allergy, Unknown, 07/04/18) ZIPRASIDONE (Verified Allergy, Unknown, 06/30/18) Uncoded Allergies: RESPERIDONE (Allergy, Unknown, 06/30/18) All Systems: reviewed and negative except above Subjective Pt with unstable gait, cont PT daily. No chest pain or dyspnea, no other complaints, no tele events. Refused MRI, appetite improved today, took meds this am, BP improved, more interactive today, ambulating, Objective Last 24 Hour Vital Signs Date Time Temp Pulse Resp B/P (MAP) Pulse Ox O2 Delivery O2 Flow Rate FiO2 11/27/18 17:56 94/60 11/27/18 16:00 97.8 84 18 92/63 (73) 11/27/18 12:00 97.9 92 18 93/62 (72) 96 11/27/18 09:12 69 90/62 11/27/18 09:00 93 104 112 11/27/18 09:00 90/62 11/27/18 09:00 62 90/69 11/27/18 08:00 97.9 81 18 93/62 (72) 96 11/27/18 04:00 97.8 80 18 94/56 (69) 97 7/12/19 00:00 98.1 84 18 99/55 (70) 97 11/26/18 21:00 Room Air 11/26/18 21:00 86 90/52 11/26/18 20:00 97.4 86 17 90/52 (65) 95 Intake and Output 11/26/18 11/27/18 19:00 07:00 Intake Total 720 ml 760 ml Output Total 5 ml Balance 720 ml 755 ml Intake Oral 720 ml 760 ml Output Urine Total 5 ml # Voids 4 # Bowel Movements 1 Height (Feet): 5 Height (Inches): 6.00 Weight (Pounds): 120 Objective General: alert, cooperative, no distress, appears stated age Head: normocephalic, without obvious abnormality, atraumatic Eyes: conjunctivae/corneas clear. PERRL, EOM's intact Throat: lips, mucosa, and tongue normal. MMM Neck: supple, symmetrical, trachea midline, and no JVD Lungs: clear to auscultation bilaterally Heart: regular rate and rhythm, S1, S2 normal, no murmur, click, rub or gallop Abdomen: soft, non-tender, non-distended, bowel sounds normal; no masses or organomegaly Extremities: extremities normal, atraumatic, no cyanosis or edema Pulses: 2+ and symmetric Skin: skin color, texture, turgor normal; no rashes or lesions Neurologic: grossly normal, no focal deficits Anny Cole MD Nov 27, 2018 19:41
[2018-11-27 20:00] VITALS: BP 93/59
[2018-11-27] MEDS: OLANZapine 10mg tab ORAL SCH (21:34)
[2018-11-28] VITALS: BP 113/66
[2018-11-28 04:00] VITALS: BP 97/55
--- NOTE | 2018-11-28 06:54 | NUR ---
NURSE NOTES: RESTED WELL THROUGHOUT THE NIGHT, NO SIGNIFICANT CHANGE OF CONDITION NOTED. SAFETY MAINTAINED. NAD.
--- NOTE | 2018-11-28 07:57 | NUR ---
NURSE NOTES: Safety measure will be incorporated 2 to unsteady gait, pt uses walker. Requires redirection, at time related to disruptive bx. Current plan of care will be followed. Bed is in safe position, and locked
[2018-11-28] MEDS: dilTIAZem HCl CD 120mg cap ORAL SCH (09:00)
[2018-11-28] MEDS: Lisinopril 20mg tab ORAL SCH (09:00)
[2018-11-28] MEDS: Eliquis 5mg tablet ORAL SCH ×2 (09:24→18:00)
[2018-11-28] MEDS: Depakote ER 500mg tab ORAL SCH (09:24)
--- NOTE | 2018-11-28 09:45 | NUR ---
NURSE NOTES: ortho static bp refused
--- NOTE | 2018-11-28 10:14 | Hematology/Onc Progress Note ---
Assessment/Plan Assessment/Plan # Anemia of chronic disease due to underlying chronic medical issues, multifactorial --> Anemia workup has been reviewed. Ferritin 83, TIBC 242 --> No evidence of hemolysis is noted, peripheral smear has been reviewed. --> Hgb goal >7. Transfuse prn. --> Epogen or iron at this time is not particularly indicated --> Medications have been reviewed --> hgb trend 14.1-->12.5--> 12.3-->11-->11.2 # Thrombocytopenia - potential causes multifactorial, evaluate liver and viral etiologies to begin, also could be related to underlying medications patient has received. --> Hep panel and HIV on PRIOR admission was negative --> US abd negative for cirrhosis and hsm --> Peripheral smear ordered to evaluate for blasts/schistocytes, none noted --> abx and other meds have been reviewed (one contributor could be depakote) --> ok for ppx if plt >50k w/ either heparin or lovenox --> Transfuse if Plt < 20k and fever, or if Plt < 10k without fever --> Plt trend 118-->169k-->187k--> 102K->133k-->154k # Atelectasis, optimize pulmonary hygiene/mobilize as tolerated --> on cxr appears stable --> per pulm recs # Paroxysmal AFib, per cardiology recs--> on noac --> on eliquis # Hypertension --> controlled, sbp goal < 140 # Hypothyroidism. # Lactic acidosis, resolved. # MACARENA, resolved. # Placement pending The timing of this note does not necessarily reflect the time of the patient was seen. Greatly appreciate consultation! Subjective Constitutional: Denies: no symptoms, chills, fever, malaise, weakness, other HEENT: Denies: no symptoms, eye pain, blurred vision, tearing, double vision, ear pain, ear discharge, nose pain, nose congestion, throat pain, throat swelling, mouth pain, mouth swelling, other Cardiovascular: Denies: no symptoms, chest pain, edema, irregular heart rate, lightheadedness, palpitations, syncope, other Respiratory: Denies: no symptoms, cough, shortness of breath, SOB with excertion, SOB at rest, sputum, wheezing, other Gastrointestinal/Abdominal: Denies: no symptoms, abdomen distended, abdominal pain, black stools, tarry stools, blood in stool, constipated, diarrhea, difficulty swallowing, nausea, poor appetite, poor fluid intake, rectal bleeding , vomiting, other Genitourinary: Denies: no symptoms, burning, discharge, frequency, flank pain, hematuria, incontinence, pain, urgency, other Neurologic/Psychiatric: Denies: no symptoms, anxiety, depressed, emotional problems, headache, numbness, paresthesia, pre-existing deficit, seizure, tingling, tremors, weakness, other Allergies: Coded Allergies: RISPERIDONE (Unverified Allergy, Unknown, 07/04/18) ZIPRASIDONE (Verified Allergy, Unknown, 06/30/18) Uncoded Allergies: RESPERIDONE (Allergy, Unknown, 06/30/18) Subjective 11/06: Pt resting in bed. No acute distress. DC planning. 11/08: Pt asleep in bed. No acute events. 11/10: Pt stable, no signs of acute distress or SOB. Venous duplex negative. 11/11: Pt resting in bed. Afebrile, no sob. MRI brain pending. 11/12: Pt in bed, sleeping. No respiratory distress noted. DC planning. 11/13: Pt awake and alert, refused morning meds. No signs of SOB or pain observed. Plt count significantly improved overnight. 11/15: Pt denies pain, no complaints of dyspnea 11/17: Pt resting in bed no chest pain or dyspnea, no other complaints 11/18: unable to place picc given do not have consent 11/20: no acute events reported. 11/21: pt refused am labs as well as am meds. h/h stable from prior labs. 11/22: pt no acute distress. Afebrile, VS reviewed. 11/23: no events reported, no f/c noted 11/24: refusing to participate in exam, labs have been reviewed 11/25: eating ensure this am, discharge planning pending, deandre FERRARI 11/26: on noac, continues, no bleeding, hgb is 11.2 11/27: refusing labs this am, discussed with him importance 11/28: resting comfortably, no acute events, no bleeding reported, no night sweats Objective Objective Current Medications Medications (Trade) Dose Ordered Sig/Eduardo Route PRN Reason Start Time Stop Time Status Last Admin Dose Admin Apixaban (Eliquis) 5 mg BID ORAL 11/07/18 18:00 12/05/18 08:59 11/28/18 09:24 Diltiazem HCl (Cardizem CD) 120 mg DAILY ORAL 11/21/18 10:50 12/21/18 10:49 11/27/18 09:12 Divalproex Sodium (Depakote ER) 500 mg DAILY ORAL 11/19/18 09:00 12/12/18 08:59 11/28/18 09:24 Gabapentin (Neurontin) 100 mg BEDTIME ORAL 11/18/18 21:00 12/18/18 20:59 11/27/18 21:35 Hydralazine HCl (Apresoline) 50 mg QIDPRN PRN ORAL HTN SBP >155 11/07/18 19:30 12/07/18 19:29 11/09/18 16:23 Levothyroxine Sodium (Synthroid) 50 mcg DAILY@0630 ORAL 11/13/18 06:30 12/13/18 06:29 11/28/18 06:27 Lisinopril (Prinivil) 20 mg DAILY ORAL 11/22/18 09:00 12/22/18 08:59 11/26/18 08:44 Lisinopril (Zestril) 10 mg QPM@1800 ORAL 11/15/18 18:00 12/15/18 17:59 11/25/18 17:23 Metoprolol Tartrate (Lopressor) 100 mg Q12HR ORAL 11/21/18 21:00 12/05/18 18:59 11/27/18 21:35 Mirtazapine (Remeron) 30 mg BEDTIME ORAL 11/12/18 21:00 12/12/18 20:59 11/27/18 21:34 Olanzapine (ZyPREXA) 30 mg BEDTIME ORAL 11/18/18 21:00 12/12/18 08:59 11/27/18 21:34 Last 24 Hour Vital Signs Date Time Temp Pulse Resp B/P (MAP) Pulse Ox O2 Delivery O2 Flow Rate FiO2 11/28/18 09:00 93/62 11/28/18 09:00 66 93/62 11/28/18 09:00 63 93/62 11/28/18 04:00 98.2 96 17 97/55 (69) 95 11/28/18 00:00 98.3 73 17 113/66 (82) 97 11/27/18 21:35 86 105/64 11/27/18 21:00 Room Air 11/27/18 20:00 98.0 88 16 93/59 (70) 93 11/27/18 17:56 94/60 11/27/18 16:00 97.8 84 18 92/63 (73) 11/27/18 12:00 97.9 92 18 93/62 (72) 96 11/27/18 09:12 69 90/62 11/27/18 09:00 Room Air 11/27/18 09:00 93 104 112 11/27/18 09:00 90/62 11/27/18 09:00 62 90/69 11/27/18 08:00 97.9 81 18 93/62 (72) 96 11/27/18 04:00 97.8 80 18 94/56 (69) 97 11/27/18 00:00 98.1 84 18 99/55 (70) 97 11/26/18 21:00 Room Air 11/26/18 21:00 86 90/52 11/26/18 20:00 97.4 86 17 90/52 (65) 95 11/26/18 17:37 98/70 11/26/18 16:00 97.8 72 100/79 (86) 11/26/18 12:00 97.1 69 19 101/63 (76) 97 Intake and Output 11/27/18 11/28/18 18:59 06:59 Intake Total 960 ml 370 ml Balance 960 ml 370 ml Intake Oral 960 ml 370 ml # Voids 3 7 Height (Feet): 5 Height (Inches): 6.00 Weight (Pounds): 120 Objective PHYSICAL EXAMINATION: VITAL SIGNS: Have been reviewed. HEENT: PERRLA. NECK: Supple. No lymphadenopathy. CHEST: Clear to auscultation. CARDIOVASCULAR: Regular rate and rhythm. No murmurs or extra sounds. GASTROINTESTINAL: Soft, nontender, and nondistended. No organomegaly. EXTREMITIES: No edema. Moves all four extremities. NEUROLOGIC: Sensory intact to light touch. Reflexes are equal on both sides. Bennie Goss MD Nov 28, 2018 10:14
[2018-11-28 12:00] VITALS: BP 129/73
--- NOTE | 2018-11-28 14:23 | NUR ---
CASE MANAGEMENT:REVIEW 11/28/18 SI: ANEMIA. AFIB W/RVR NON COMPLIANCE T 98.2 HR 96 RR 17 B/P 97/55 SATS 95% ON RA NO LABS TODAY IS: DEPAKOTE 500MG PO QD ZYPREXA 30MG PO QHS NEURONTIN 100MG PO QHS REMERON 30MG PO QHS LISINOPRIL PO QD SYNTHROID PO QD CARDIZEM PO QD LOPRESSOR PO Q12 ELIQUIS PO BID : MED/SURG STATUS
--- NOTE | 2018-11-28 16:00 | NUR ---
NURSE NOTES: Pt more active today walking in hallway with walker has on street clothes monitored closely. Bx required redirection for spontaneous outburst , Repeatedly asking for coffee and Ensure
[2018-11-28 16:51] VITALS: BP 129/73
[2018-11-28] MEDS: Lisinopril 10mg tab ORAL SCH (18:00)
--- NOTE | 2018-11-28 19:30 | NUR ---
NURSE NOTES: RECEIVED PATIENT SITTING AT BEDSIDE, AWAKE, ALERT/ORIENTED TO PERSON/PLACE, REALITY ORIENTATION PROVIDED DURING ASSESSMENT. PATIENT WEARING STREET CLOTHES WITH GOWN UNDERNEATH HOODED JACKET, PATIENT REFUSE TO REMOVE CLOTHING; NO COMPLAINTS OF GI DISCOMFORT, REPORT OF INCREASE IN PO INTAKE, NO N/V/D. WILL CLOSELY MONITOR PATIENT FOR SAFETY/NEEDS. ENCOURAGED PATIENT TO UTILIZE CALL LIGHT FOR ASSISTANCE, VERBALIZED UNDERSTANDING. NAD.
[2018-11-28 20:00] VITALS: BP 129/79
--- NOTE | 2018-11-28 20:13 | Neurology Progress Note ---
Interim History Interim History ROS Limited/Unobtainable: No Complaints: AMS Events: no changes Interim History doing better Objective Physical Exam Last Vital Signs Date Time Temp Pulse Resp B/P (MAP) Pulse Ox O2 Delivery O2 Flow Rate FiO2 11/28/18 18:00 92/60 11/28/18 16:51 98.1 94 20 100 11/28/18 09:00 Room Air General: well developed, well nourished, no acute distress Head: normocophalic, atraumatic Neck: no rigidity EENT: benign Neurologic Exam Mental Status: awake, alert, oriented x4, normal cognition, good mathematical skills, normal recent memory, normal remote memory, preserved visuospatial function Speech: normal speech, no dysarthia Language: normal language, no aphasia Cranial Nerve II: fundus normal, visual francis, no papilledema Cranial Nerves III, IV, : PERRLA, EOMI, pupils Cranial Nerve V: normal facial sensations, temporales function normal, masseters function normal, pterygoids function normal Cranial Nerve VII: no facial asymmetry, normal facial expressions Cranial Nerve VIII: normal hearing, no nystagmus Cranial Nerve IX: normal palate elevation, gag response Cranial Nerve X: no voice hoarseness Cranial Nerve XI: SCM symmetric, trapezii function normal Cranial Nerve XII: tongue midline, no tongue atrophy/fasciculations Motor System: normal muscle tone, strength 5/5, no involuntary movement, no muscle wasting Sensory: normal pinprick, normal light touch, normal position sense, normal graphesthesia Coordination: normal finger to nose bilaterally, normal heel to ramsay bilaterally, negative Romberg test Deep Tendon Reflexes: 2+ bicep (L), 2+ bicep (R), 2+ tricep (L), 2+ tricep (R) , 2+ brachioradialis (L), 2+ brachioradialis (R), 2+ knee (L), 2+ knee (R), 2+ ankle (L), 2+ ankle (R) Stance: normal Gait: stable, normal regular, heel + toe gait Impression/Recommendations Problems: (1) Anemia (2) Pre-syncope (3) Hyponatremia (4) Dehydration (5) Syncope (6) Parkinsonism (7) HTN (hypertension) (8) Hypothyroid (9) Atrial fibrillation Status: stable, unchanged Diagnostic Impression Parkinsonism stable - trail of sinemet as outpatient once metabolic abnormalities resolve PT OT Cont NOAC will benefit from rehab placement Serjio Sharpe MD Nov 28, 2018 20:13
[2018-11-28] MEDS: OLANZapine 10mg tab ORAL SCH (22:02)
--- NOTE | 2018-11-28 23:09 | General Progress Note ---
Assessment/Plan Status: stable, unchanged Assessment/Plan: 63 y/o man with hx of paroxysmal atrial fibrillation, presented to the hospital with pre-syncope, found to have rapid atrial fibrillation. #Paroxysmal Atrial Fibrillation #Atrial fibrillation with RVR - Cont beta zack and Diltiazem for rate control - holding parameters placed. - Cont NOAC.. - echo did not show any remarkable changes - Apprec cardiology recs # Orthostatic hypotension - Serial Orthostatic vital signs - Monitor OFF IVF and follow up. #Anemia due to chronic illness #Thrombocytopenia - Hgb and platelet count appeared to be at baseline, seen by Hematology, no new changes recommended. Labs in AM #unstable gait -continue PT ( patient refused treatment 11/20 and not seen since then by PT ) - PATIENT WILL NEED TO BE WITHOUT FWW in order to return to his [facility]. Otherwise, will need new placement. network contract manager follow up is needed. SW note for conservator reviewed. #Behavorial disorder -psych meds restarted -psychiatry consulted time of note may not reflect time of encounter Subjective Date patient seen: Nov 28, 2018 Allergies: Coded Allergies: RISPERIDONE (Unverified Allergy, Unknown, 07/04/18) ZIPRASIDONE (Verified Allergy, Unknown, 06/30/18) Uncoded Allergies: RESPERIDONE (Allergy, Unknown, 06/30/18) Subjective Pt with unstable gait, cont PT daily. No chest pain or dyspnea, no other complaints, no tele events. Refused MRI, appetite improved today, took meds this am, BP improved, more interactive today, ambulating, Objective Last 24 Hour Vital Signs Date Time Temp Pulse Resp B/P (MAP) Pulse Ox O2 Delivery O2 Flow Rate FiO2 11/28/18 20:21 95 127/79 11/28/18 20:00 97.5 94 18 129/79 (96) 97 11/28/18 18:00 92/60 11/28/18 16:51 98.1 94 20 129/73 (91) 100 11/28/18 12:00 98.1 94 20 129/73 (91) 100 11/28/18 09:00 93/62 11/28/18 09:00 66 93/62 11/28/18 09:00 63 93/62 11/28/18 09:00 Room Air 11/28/18 04:00 98.2 96 17 97/55 (69) 95 11/28/18 00:00 98.3 73 17 113/66 (82) 97 Intake and Output 11/27/18 11/28/18 19:00 07:00 Intake Total 960 ml 370 ml Balance 960 ml 370 ml Intake Oral 960 ml 370 ml # Voids 3 7 Height (Feet): 5 Height (Inches): 6.00 Weight (Pounds): 120 Objective General: alert, cooperative, no distress, appears stated age Head: normocephalic, without obvious abnormality, atraumatic Eyes: conjunctivae/corneas clear. PERRL, EOM's intact Throat: lips, mucosa, and tongue normal. MMM Neck: supple, symmetrical, trachea midline, and no JVD Lungs: clear to auscultation bilaterally Heart: regular rate and rhythm, S1, S2 normal, no murmur, click, rub or gallop Abdomen: soft, non-tender, non-distended, bowel sounds normal; no masses or organomegaly Extremities: extremities normal, atraumatic, no cyanosis or edema Pulses: 2+ and symmetric Skin: skin color, texture, turgor normal; no rashes or lesions Neurologic: grossly normal, no focal deficits Anny Cole MD Nov 28, 2018 23:09
[2018-11-29] VITALS: BP 109/72
[2018-11-29 04:00] VITALS: BP 112/77
[2018-11-29 08:00] VITALS: BP 102/56
--- NOTE | 2018-11-29 08:00 | NUR ---
HAND-OFF: Report given to ELLA TRUJILLO.
--- NOTE | 2018-11-29 08:00 | NUR ---
NURSE NOTES: Received report from Cora JARAMILLO. pt a/a/o x2 laying in bed with no signs of distress or other issues at this time. no IV access, MD is aware. skin is intact. call light within reach. bed in lowest position. side rales up x2. I will f/u as needed. - pt REFUSED AM labs.
[2018-11-29] MEDS: Depakote ER 500mg tab ORAL SCH (08:38)
[2018-11-29] MEDS: Eliquis 5mg tablet ORAL SCH ×2 (08:38→19:04)
[2018-11-29] MEDS: dilTIAZem HCl CD 120mg cap ORAL SCH (11:04)
[2018-11-29] MEDS: Lisinopril 20mg tab ORAL SCH (11:04)
[2018-11-29 12:00] VITALS: BP 117/64
--- NOTE | 2018-11-29 14:19 | NUR ---
PT Note Attempted to see patient multiple times but patient refused.
[2018-11-29 15:04] LABS: ANION GAP 5 mmol/L (5-15); BLOOD UREA NITROGEN 33 mg/dL (7-18); CALCIUM 9.2 MG/DL (8.5-10.1); CARBON DIOXIDE 32 MMOL/L (21-32); CHLORIDE 101 MMOL/L (98-107); CREATININE 1.2 MG/DL (0.55-1.30); POTASSIUM 4.2 MMOL/L (3.5-5.1); SODIUM 138 MMOL/L (136-145)
--- NOTE | 2018-11-29 15:35 | General Progress Note ---
Assessment/Plan Status: stable, unchanged Assessment/Plan: 63 y/o man with hx of paroxysmal atrial fibrillation, presented to the hospital with pre-syncope, found to have rapid atrial fibrillation. #Paroxysmal Atrial Fibrillation #Atrial fibrillation with RVR - Cont beta zack and Diltiazem for rate control - holding parameters placed. - Cont NOAC.. - echo did not show any remarkable changes - Apprec cardiology recs # Orthostatic hypotension - Serial Orthostatic vital signs - Monitor OFF IVF and follow up. #Anemia due to chronic illness #Thrombocytopenia - Hgb and platelet count appeared to be at baseline, seen by Hematology, no new changes recommended. Labs in AM #unstable gait -continue PT ( patient refused treatment 11/20 and not seen since then by PT ) - PATIENT WILL NEED TO BE WITHOUT FWW in order to return to his [facility]. Otherwise, will need new placement. manager human capital follow up is needed. SW note for conservator reviewed. #Behavorial disorder -psych meds restarted -psychiatry consulted time of note may not reflect time of encounter Subjective Date patient seen: Nov 29, 2018 Allergies: Coded Allergies: RISPERIDONE (Unverified Allergy, Unknown, 07/04/18) ZIPRASIDONE (Verified Allergy, Unknown, 06/30/18) Uncoded Allergies: RESPERIDONE (Allergy, Unknown, 06/30/18) Subjective Pt with unstable gait, cont PT daily. No chest pain or dyspnea, no other complaints, no tele events. Refused MRI, ambulating, Objective Last 24 Hour Vital Signs Date Time Temp Pulse Resp B/P (MAP) Pulse Ox O2 Delivery O2 Flow Rate FiO2 11/29/18 12:00 97.3 76 20 117/64 (81) 96 11/29/18 11:04 102/56 11/29/18 11:04 81 102/56 11/29/18 11:04 81 102/56 11/29/18 09:00 Room Air 11/29/18 08:00 85 105 126 11/29/18 08:00 97.7 81 18 102/56 (71) 96 11/29/18 04:00 97.9 80 18 112/77 (89) 96 11/29/18 00:00 97.0 78 18 109/72 (84) 97 11/28/18 21:00 Room Air 11/28/18 20:21 95 127/79 11/28/18 20:00 97.5 94 18 129/79 (96) 97 11/28/18 18:00 92/60 11/28/18 16:51 98.1 94 20 129/73 (91) 100 Intake and Output 11/28/18 11/29/18 18:59 06:59 Intake Total 300 ml 660 ml Balance 300 ml 660 ml Intake Oral 300 ml 660 ml # Voids 2 4 Laboratory Tests 11/29/18 14:30: Sodium Level 138, Potassium Level 4.2, Chloride Level 101, Carbon Dioxide Level 32, Anion Gap 5, Blood Urea Nitrogen 33H, Creatinine 1.2, Estimat Glomerular Filtration Rate > 60, Glucose Level 156H, Calcium Level 9.2 Height (Feet): 5 Height (Inches): 6.00 Weight (Pounds): 120 Objective General: alert, cooperative, no distress, appears stated age Head: normocephalic, without obvious abnormality, atraumatic Eyes: conjunctivae/corneas clear. PERRL, EOM's intact Throat: lips, mucosa, and tongue normal. MMM Neck: supple, symmetrical, trachea midline, and no JVD Lungs: clear to auscultation bilaterally Heart: regular rate and rhythm, S1, S2 normal, no murmur, click, rub or gallop Abdomen: soft, non-tender, non-distended, bowel sounds normal; no masses or organomegaly Extremities: extremities normal, atraumatic, no cyanosis or edema Pulses: 2+ and symmetric Skin: skin color, texture, turgor normal; no rashes or lesions Neurologic: grossly normal, no focal deficits Anny Cole MD Nov 29, 2018 15:35
--- NOTE | 2018-11-29 17:04 | Neurology Progress Note ---
Interim History Interim History ROS Limited/Unobtainable: No Complaints: AMS Events: no changes Interim History tired in bed most of the day denies KENDALL, weak all over Objective Physical Exam Last Vital Signs Date Time Temp Pulse Resp B/P (MAP) Pulse Ox O2 Delivery O2 Flow Rate FiO2 11/29/18 12:00 97.3 76 20 117/64 (81) 96 11/29/18 09:00 Room Air Laboratory Tests Test 11/29/18 14:30 Sodium Level 138 MMOL/L (136-145) Potassium Level 4.2 MMOL/L (3.5-5.1) Chloride Level 101 MMOL/L (98-107) Carbon Dioxide Level 32 MMOL/L (21-32) Anion Gap 5 mmol/L (5-15) Blood Urea Nitrogen 33 mg/dL (7-18) H Creatinine 1.2 MG/DL (0.55-1.30) Estimat Glomerular Filtration Rate > 60 mL/min (>60) Glucose Level 156 MG/DL (74-106) H Calcium Level 9.2 MG/DL (8.5-10.1) General: well developed, well nourished, no acute distress Head: normocophalic, atraumatic Neck: no rigidity EENT: benign Neurologic Exam Mental Status: awake, alert, oriented x4, normal cognition, good mathematical skills, normal recent memory, normal remote memory, preserved visuospatial function Speech: normal speech, no dysarthia Language: normal language, no aphasia Cranial Nerve II: fundus normal, visual francis, no papilledema Cranial Nerves III, IV, : PERRLA, EOMI, pupils Cranial Nerve V: normal facial sensations, temporales function normal, masseters function normal, pterygoids function normal Cranial Nerve VII: no facial asymmetry, normal facial expressions Cranial Nerve VIII: normal hearing, no nystagmus Cranial Nerve IX: normal palate elevation, gag response Cranial Nerve X: no voice hoarseness Cranial Nerve XI: SCM symmetric, trapezii function normal Cranial Nerve XII: tongue midline, no tongue atrophy/fasciculations Motor System: normal muscle tone, strength 5/5, no involuntary movement, no muscle wasting Sensory: normal pinprick, normal light touch, normal position sense, normal graphesthesia Coordination: normal finger to nose bilaterally, normal heel to ramsay bilaterally, negative Romberg test Deep Tendon Reflexes: 2+ bicep (L), 2+ bicep (R), 2+ tricep (L), 2+ tricep (R) , 2+ brachioradialis (L), 2+ brachioradialis (R), 2+ knee (L), 2+ knee (R), 2+ ankle (L), 2+ ankle (R) Stance: normal Gait: stable, normal regular, heel + toe gait Impression/Recommendations Problems: (1) Anemia (2) Pre-syncope (3) Hyponatremia (4) Dehydration (5) Syncope (6) Parkinsonism (7) HTN (hypertension) (8) Hypothyroid (9) Atrial fibrillation Status: stable, unchanged Diagnostic Impression Parkinsonism stable - trail of sinemet as outpatient once metabolic abnormalities resolve PT OT Cont NOAC will benefit from rehab placement Serjio Sharpe MD Nov 29, 2018 17:04
[2018-11-29] MEDS: Lisinopril 10mg tab ORAL SCH (19:04)
--- NOTE | 2018-11-29 19:05 | NUR ---
HAND-OFF: Report given to Mecca JARAMILLO, pt in stable condition.
--- NOTE | 2018-11-29 19:46 | NUR ---
NURSE NOTES: RECEIVED PATIENT LYING IN BED, APPEAR TO BE ASLEEP, AWAKENED TO NAME, DENIES PAIN. NO SIGNS AND SYMPTOMS OF ACUTE CARDIO RESPIRATORY DISTRESS/SHORTNESS OF BREATH, DENIES CHEST PAIN, NO EDEMA NOTED. PO INTAKE INCREASING/2 ENSURE WITH EACH MEAL, PATIENT AWARE. NO REPORT OF N/V/D. SIDE RAILS UP X3/BED IN LOWEST POSITION FOR SAFETY. ENCOURAGED PATIENT TO UTILIZE CALL LIGHT FOR ASSISTANCE. CONTINUE WITH CURRENT PLAN OF CARE. NAD.
[2018-11-29 20:00] VITALS: BP 99/63
[2018-11-29] MEDS: OLANZapine 10mg tab ORAL SCH (20:43)
[2018-11-30] VITALS: BP 97/61
[2018-11-30 04:00] VITALS: BP 121/84
--- NOTE | 2018-11-30 06:47 | NUR ---
NURSE NOTES: NO SIGNIFICANT CHANGE OF CONDITION NOTED THROUGHOUT THE NIGHT. SAFETY MAINTAINED. NAD.
--- NOTE | 2018-11-30 08:28 | NUR ---
NURSE NOTES: Pt is currently sleeping , ate well this morning. Bed is locked and in safe position. Call light in reach. Requires redirection for impulsive bx
[2018-11-30] MEDS: Lisinopril 20mg tab ORAL SCH (09:00)
[2018-11-30] MEDS: dilTIAZem HCl CD 120mg cap ORAL SCH (09:00)
[2018-11-30] MEDS: Eliquis 5mg tablet ORAL SCH ×2 (09:15→18:00)
[2018-11-30] MEDS: Depakote ER 500mg tab ORAL SCH (09:15)
--- NOTE | 2018-11-30 09:29 | Hematology/Onc Progress Note ---
Assessment/Plan Assessment/Plan # Anemia of chronic disease due to underlying chronic medical issues, multifactorial --> Anemia workup has been reviewed. Ferritin 83, TIBC 242 --> No evidence of hemolysis is noted, peripheral smear has been reviewed. --> Hgb goal >7. Transfuse prn. --> Epogen or iron at this time is not particularly indicated --> Medications have been reviewed --> hgb trend 14.1-->12.5--> 12.3-->11-->11.2 --> noncompliant with labs # Thrombocytopenia - potential causes multifactorial, evaluate liver and viral etiologies to begin, also could be related to underlying medications patient has received. --> Hep panel and HIV on PRIOR admission was negative --> US abd negative for cirrhosis and hsm --> Peripheral smear ordered to evaluate for blasts/schistocytes, none noted --> abx and other meds have been reviewed (one contributor could be depakote) --> ok for ppx if plt >50k w/ either heparin or lovenox --> Transfuse if Plt < 20k and fever, or if Plt < 10k without fever --> Plt trend 118-->169k-->187k--> 102K->133k-->154k # Atelectasis, optimize pulmonary hygiene/mobilize as tolerated --> on cxr appears stable --> per pulm recs # Paroxysmal AFib, per cardiology recs--> on noac --> on eliquis # Hypertension --> controlled, sbp goal < 140 # Hypothyroidism. # Lactic acidosis, resolved. # MACARENA, resolved. # Placement pending The timing of this note does not necessarily reflect the time of the patient was seen. Greatly appreciate consultation! Subjective HEENT: Denies: no symptoms, eye pain, blurred vision, tearing, double vision, ear pain, ear discharge, nose pain, nose congestion, throat pain, throat swelling, mouth pain, mouth swelling, other Cardiovascular: Denies: no symptoms, chest pain, edema, irregular heart rate, lightheadedness, palpitations, syncope, other Respiratory: Denies: no symptoms, cough, shortness of breath, SOB with excertion, SOB at rest, sputum, wheezing, other Gastrointestinal/Abdominal: Denies: no symptoms, abdomen distended, abdominal pain, black stools, tarry stools, blood in stool, constipated, diarrhea, difficulty swallowing, nausea, poor appetite, poor fluid intake, rectal bleeding , vomiting, other Neurologic/Psychiatric: Denies: no symptoms, anxiety, depressed, emotional problems, headache, numbness, paresthesia, pre-existing deficit, seizure, tingling, tremors, weakness, other Endocrine: Denies: no symptoms, excessive sweating, flushing, intolerance to cold, intolerance to heat, increased hunger, increased thirst, increased urine, unexplained weight gain, unexplained weight loss, other Hematologic/Lymphatic: Denies: no symptoms, anemia, easy bleeding, easy bruising, adenopathy, other Allergies: Coded Allergies: RISPERIDONE (Unverified Allergy, Unknown, 07/04/18) ZIPRASIDONE (Verified Allergy, Unknown, 06/30/18) Uncoded Allergies: RESPERIDONE (Allergy, Unknown, 06/30/18) Subjective 11/06: Pt resting in bed. No acute distress. DC planning. 11/08: Pt asleep in bed. No acute events. 11/10: Pt stable, no signs of acute distress or SOB. Venous duplex negative. 11/11: Pt resting in bed. Afebrile, no sob. MRI brain pending. 11/12: Pt in bed, sleeping. No respiratory distress noted. DC planning. 11/13: Pt awake and alert, refused morning meds. No signs of SOB or pain observed. Plt count significantly improved overnight. 11/15: Pt denies pain, no complaints of dyspnea 11/17: Pt resting in bed no chest pain or dyspnea, no other complaints 11/18: unable to place picc given do not have consent 11/20: no acute events reported. 11/21: pt refused am labs as well as am meds. h/h stable from prior labs. 11/22: pt no acute distress. Afebrile, VS reviewed. 11/23: no events reported, no f/c noted 11/24: refusing to participate in exam, labs have been reviewed 11/25: eating ensure this am, discharge planning pending, dw CM 11/26: on noac, continues, no bleeding, hgb is 11.2 11/27: refusing labs this am, discussed with him importance 11/28: resting comfortably, no acute events, no bleeding reported, no night sweats 11/30: no events, no bleeding, no chills, no major night sweats Objective Objective Current Medications Medications (Trade) Dose Ordered Sig/Eduardo Route PRN Reason Start Time Stop Time Status Last Admin Dose Admin Apixaban (Eliquis) 5 mg BID ORAL 11/07/18 18:00 12/05/18 08:59 11/30/18 09:15 Diltiazem HCl (Cardizem CD) 120 mg DAILY ORAL 11/21/18 10:50 12/21/18 10:49 11/29/18 11:04 Divalproex Sodium (Depakote ER) 500 mg DAILY ORAL 11/19/18 09:00 12/12/18 08:59 11/30/18 09:15 Gabapentin (Neurontin) 100 mg BEDTIME ORAL 11/18/18 21:00 12/18/18 20:59 11/29/18 20:43 Hydralazine HCl (Apresoline) 50 mg QIDPRN PRN ORAL HTN SBP >155 11/07/18 19:30 12/07/18 19:29 11/09/18 16:23 Levothyroxine Sodium (Synthroid) 50 mcg DAILY@0630 ORAL 11/13/18 06:30 12/13/18 06:29 11/30/18 05:38 Lisinopril (Prinivil) 20 mg DAILY ORAL 11/22/18 09:00 12/22/18 08:59 11/29/18 11:04 Lisinopril (Zestril) 10 mg QPM@1800 ORAL 11/15/18 18:00 12/15/18 17:59 11/29/18 19:04 Metoprolol Tartrate (Lopressor) 100 mg Q12HR ORAL 11/21/18 21:00 12/05/18 18:59 11/29/18 11:04 Mirtazapine (Remeron) 30 mg BEDTIME ORAL 11/12/18 21:00 12/12/18 20:59 11/29/18 20:43 Olanzapine (ZyPREXA) 30 mg BEDTIME ORAL 11/18/18 21:00 12/12/18 08:59 11/29/18 20:43 Last 24 Hour Vital Signs Date Time Temp Pulse Resp B/P (MAP) Pulse Ox O2 Delivery O2 Flow Rate FiO2 11/30/18 04:00 97.6 64 18 121/84 (96) 99 11/30/18 00:00 97.0 68 18 97/61 (73) 97 11/29/18 20:44 74 99/63 11/29/18 20:39 Room Air 11/29/18 20:00 97.6 74 18 99/63 (75) 97 11/29/18 19:04 117/64 11/29/18 12:00 97.3 76 20 117/64 (81) 96 11/29/18 11:04 102/56 11/29/18 11:04 81 102/56 11/29/18 11:04 81 102/56 11/29/18 09:00 Room Air 11/29/18 08:00 85 105 126 11/29/18 08:00 97.7 81 18 102/56 (71) 96 11/29/18 04:00 97.9 80 18 112/77 (89) 96 11/29/18 00:00 97.0 78 18 109/72 (84) 97 11/28/18 21:00 Room Air 11/28/18 20:21 95 127/79 11/28/18 20:00 97.5 94 18 129/79 (96) 97 11/28/18 18:00 92/60 11/28/18 16:51 98.1 94 20 129/73 (91) 100 11/28/18 12:00 98.1 94 20 129/73 (91) 100 Intake and Output 11/29/18 11/30/18 19:00 07:00 Intake Total 300 ml 360 ml Balance 300 ml 360 ml Intake Oral 300 ml 360 ml # Voids 2 1 Labs Test 11/29/18 14:30 Sodium Level 138 MMOL/L (136-145) Potassium Level 4.2 MMOL/L (3.5-5.1) Chloride Level 101 MMOL/L (98-107) Carbon Dioxide Level 32 MMOL/L (21-32) Anion Gap 5 mmol/L (5-15) Blood Urea Nitrogen 33 mg/dL (7-18) Creatinine 1.2 MG/DL (0.55-1.30) Estimat Glomerular Filtration Rate > 60 mL/min (>60) Glucose Level 156 MG/DL (74-106) Calcium Level 9.2 MG/DL (8.5-10.1) Height (Feet): 5 Height (Inches): 6.00 Weight (Pounds): 120 Objective PHYSICAL EXAMINATION: VITAL SIGNS: Have been reviewed. HEENT: PERRLA. NECK: Supple. No lymphadenopathy. CHEST: Clear to auscultation. CARDIOVASCULAR: Regular rate and rhythm. No murmurs or extra sounds. GASTROINTESTINAL: Soft, nontender, and nondistended. No organomegaly. EXTREMITIES: No edema. Moves all four extremities. NEUROLOGIC: Sensory intact to light touch. Reflexes are equal on both sides. Bennie Goss MD Nov 30, 2018 09:29
--- NOTE | 2018-11-30 10:21 | NUR ---
*-* INSURANCE *-* UPDATED REVIEWS HAVE BEEN FAXED TO: [facility] [place] USE THE SS# THE REF#..... NO ACCOUNT INFORMATION CLERK ASSIGNED P- [phone].... F- [phone]...REVIEW/CLINICAL
--- NOTE | 2018-11-30 10:34 | NUR ---
NURSE NOTES: Pt gait is unstably required verbal encouragement to cooperate with physical therapy. Pt is currently laying down, mood varies can be cooperative, has had a pattern of noncompliance. Placement remains pending.
--- NOTE | 2018-11-30 10:42 | NUR ---
NURSE NOTES: pt refused orthostatic blood pressure , will reattempt
--- NOTE | 2018-11-30 14:10 | NUR ---
RD ASSESSMENT & RECOMMENDATIONS SEE CARE ACTIVITY FOR COMPLETE ASSESSMENT DAILY ESTIMATED NEEDS: Needs based on cardiac, possible wt loss/ 49kg 30-35 kcals/kg 7261-2291 total kcals 1-1.5 g protein/kg 49-74 g total protein 25-30 mL/kg 9808-8889 total fluid mLs NUTRITION DIAGNOSIS: Increased kcal/prot intake needs R/T wt loss as evidenced by pt w/ possible significant wt loss of 23lbs/17.5% in 4 months, currently w/ variable meal intake CURRENT DIET: CARDIAC, mech soft chopped + Ensure TID (2per meal) PO DIET RECOMMENDATIONS: Liberalized REGULAR w/ poor and variable PO intake ADDITIONAL RECOMMENDATIONS: * Calibrated bedscale wt or standing wt of accurate CBW * Weekly wt monitoring given possible recent wt loss * Ensure Enlive 4-5x daily (350kcal/20g prot per bottle) * Monitor po intake trend- rec pm snacks when more awake * Monitor lytes, replete as needed * IVF w/ IV access: BUN elev * Vit D 1000IU daily (low Vit D25=29)
--- NOTE | 2018-11-30 14:16 | NUR ---
CASE MANAGEMENT:REVIEW 11/30/18 SI: ANEMIA. AFIB W/RVR NON COMPLIANCE 97.6 64 18 121/84 99% ON RA IS: DEPAKOTE 500MG PO QD ZYPREXA 30MG PO QHS NEURONTIN 100MG PO QHS REMERON 30MG PO QHS LISINOPRIL PO QD SYNTHROID PO QD CARDIZEM PO QD LOPRESSOR PO Q12 ELIQUIS PO BID : MED/SURG STATUS 4 EAST DCP: FROM [facility] PL[facility]: HAS BEEN ON PSYCH MEDS SINCE 11/12/18
--- NOTE | 2018-11-30 14:19 | NUR ---
DISCHARGE PLANNING PULP OPERATOR CALLED AND SPOKE WITH PUBLIC GUARDIAN,TONIUTAmy SESAY T: [phone] SHE WILL CALL PSYCHIATRIST AT [address] DR PAIGE REGARDING TRANSFERRING
--- NOTE | 2018-11-30 14:27 | General Progress Note ---
Assessment/Plan Status: stable, unchanged Assessment/Plan: Assessment/Plan Status: stable, unchanged Assessment/Plan: 63 y/o man with hx of paroxysmal atrial fibrillation, presented to the hospital with pre-syncope, found to have rapid atrial fibrillation. #Paroxysmal Atrial Fibrillation #Atrial fibrillation with RVR - Cont beta zack and Diltiazem for rate control - holding parameters. - Cont NOAC.. - echo did not show any remarkable changes - Apprec cardiology recs # Orthostatic hypotension - Serial Orthostatic vital signs - Monitor OFF IVF and follow up. #Anemia due to chronic illness #Thrombocytopenia - Hgb and platelet count appeared to be at baseline, seen by Hematology, no new changes recommended. Labs in AM #unstable gait -continue PT ( patient refused treatment 11/20 and not seen since then by PT ) - PATIENT WILL NEED TO BE WITHOUT [facility] in order to return to his [facility]. Otherwise, will need new placement. 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 SW note for conservator reviewed. #Behavorial disorder -psych meds restarted -psychiatry consulted # Disposition Difficult placement. Per patient case coordinator no insurance available. [facility] notes reported [facility]. Need to continue efforts by CM and SW to place. Medically stable for discharge when placement is approved. Subjective ROS Limited/Unobtainable: Yes Allergies: Coded Allergies: RISPERIDONE (Unverified Allergy, Unknown, 07/04/18) ZIPRASIDONE (Verified Allergy, Unknown, 06/30/18) Uncoded Allergies: RESPERIDONE (Allergy, Unknown, 06/30/18) Objective Last 24 Hour Vital Signs Date Time Temp Pulse Resp B/P (MAP) Pulse Ox O2 Delivery O2 Flow Rate FiO2 11/30/18 09:00 Room Air 11/30/18 04:00 97.6 64 18 121/84 (96) 99 11/30/18 00:00 97.0 68 18 97/61 (73) 97 11/29/18 20:44 74 99/63 11/29/18 20:39 Room Air 11/29/18 20:00 97.6 74 18 99/63 (75) 97 11/29/18 19:04 117/64 Intake and Output 11/29/18 11/30/18 18:59 06:59 Intake Total 300 ml 360 ml Balance 300 ml 360 ml Intake Oral 300 ml 360 ml # Voids 2 1 Laboratory Tests 11/29/18 14:30: Sodium Level 138, Potassium Level 4.2, Chloride Level 101, Carbon Dioxide Level 32, Anion Gap 5, Blood Urea Nitrogen 33H, Creatinine 1.2, Estimat Glomerular Filtration Rate > 60, Glucose Level 156H, Calcium Level 9.2 Height (Feet): 5 Height (Inches): 6.00 Weight (Pounds): 120 General Appearance: WD/WN, other - asking why he is still in the Hospital? EENT: PERRL/EOMI Neck: non-tender Cardiovascular: normal peripheral pulses Respiratory/Chest: chest wall non-tender Abdomen: normal bowel sounds Edema: trace edema Neurologic: systems analyst developer II-XII grossly normal Galo Wallis MD Nov 30, 2018 14:27
[2018-11-30 16:00] VITALS: BP 96/71
--- NOTE | 2018-11-30 17:29 | Neurology Progress Note ---
Interim History Interim History ROS Limited/Unobtainable: Yes Complaints: AMS Events: no changes Interim History no complains Objective Physical Exam Last Vital Signs Date Time Temp Pulse Resp B/P (MAP) Pulse Ox O2 Delivery O2 Flow Rate FiO2 11/30/18 16:00 97.4 74 16 96/71 (79) 97 11/30/18 09:00 Room Air General: well developed, well nourished, no acute distress Head: normocophalic, atraumatic Neck: no rigidity EENT: benign Neurologic Exam Mental Status: awake, alert, oriented x4, normal cognition, good mathematical skills, normal recent memory, normal remote memory, preserved visuospatial function Speech: normal speech, no dysarthia Language: normal language, no aphasia Cranial Nerve II: fundus normal, visual francis, no papilledema Cranial Nerves III, IV, : PERRLA, EOMI, pupils Cranial Nerve V: normal facial sensations, temporales function normal, masseters function normal, pterygoids function normal Cranial Nerve VII: no facial asymmetry, normal facial expressions Cranial Nerve VIII: normal hearing, no nystagmus Cranial Nerve IX: normal palate elevation, gag response Cranial Nerve X: no voice hoarseness Cranial Nerve XI: SCM symmetric, trapezii function normal Cranial Nerve XII: tongue midline, no tongue atrophy/fasciculations Motor System: normal muscle tone, strength 5/5, no involuntary movement, no muscle wasting Sensory: normal pinprick, normal light touch, normal position sense, normal graphesthesia Coordination: normal finger to nose bilaterally, normal heel to ramsay bilaterally, negative Romberg test Deep Tendon Reflexes: 2+ bicep (L), 2+ bicep (R), 2+ tricep (L), 2+ tricep (R) , 2+ brachioradialis (L), 2+ brachioradialis (R), 2+ knee (L), 2+ knee (R), 2+ ankle (L), 2+ ankle (R) Stance: normal Gait: stable, normal regular, heel + toe gait Impression/Recommendations Problems: (1) Anemia (2) Pre-syncope (3) Hyponatremia (4) Dehydration (5) Syncope (6) Parkinsonism (7) HTN (hypertension) (8) Hypothyroid (9) Atrial fibrillation Status: stable, unchanged Diagnostic Impression Parkinsonism stable - trail of sinemet as outpatient once metabolic abnormalities resolve PT OT Cont NOAC will benefit from rehab placement Serjio Sharpe MD Nov 30, 2018 17:28
[2018-11-30] MEDS: Lisinopril 10mg tab ORAL SCH (18:00)
--- NOTE | 2018-11-30 19:35 | NUR ---
NURSE NOTES:Patient received from Fela Coles patient in bed when received . Patient denies any pain . no s/s of distress .Patient ambulates with walker going to bathroom . safety / fall precautions .call light within reach . bed in low position . Bed alarm active Will continue to monitor patient.
--- NOTE | 2018-11-30 19:38 | NUR ---
HAND-OFF: Report given to .Cathi SNYDER
[2018-11-30 20:00] VITALS: BP 128/76
[2018-11-30] MEDS: OLANZapine 10mg tab ORAL SCH ×2 (21:00→21:20)
--- NOTE | 2018-11-30 21:00 | NUR ---
NURSE NOTES:Patient refused vital signs at 20:00 and medications. Patient mood varies can be cooperative and non compliance. Patient stated "he's feeling better " . Explained to the patient the risk and benefits and patient agreed vital signs and medications taken .
[2018-12-01] VITALS: BP 112/74
[2018-12-01 04:00] VITALS: BP 97/68
[2018-12-01 07:07] LABS: BASOPHILS % (AUTO) 1.7 % (0.0-2.0); EOSINOPHILS % (AUTO) 5.7 % (0.0-3.0); HEMATOCRIT 30.5 % (42.0-52.0); LYMPHOCYTES % (AUTO) 31.3 % (20.0-45.0); MEAN CORPUSCULAR VOLUME 91 FL (80-99); NEUTROPHILS % (AUTO) 44.3 % (45.0-75.0); PLATELET COUNT 182 K/UL (150-450); RED BLOOD COUNT 3.37 M/UL (4.70-6.10); RED CELL DISTRIBUTION WIDTH 16.5 % (11.6-14.8); WHITE BLOOD COUNT 5.2 K/UL (4.8-10.8)
--- NOTE | 2018-12-01 07:10 | NUR ---
HAND-OFF: Report given to Lavonne Coles Patient on stable condition.
--- NOTE | 2018-12-01 07:20 | NUR ---
NURSE NOTES:BEDSIDE ROUNDS DONE,PT.EATING BREAKFAST,A/O X 2,ROOM AIR,NO C/O PAIN.AMBULATORY AD ABEL USING WALKER.AWAITING FOR PLACEMENT.
[2018-12-01 08:00] VITALS: BP 126/70
--- NOTE | 2018-12-01 08:00 | NUR ---
NURSE NOTES:REFUSED FOR ORTHOSTATIC V/S.
[2018-12-01] MEDS: Depakote ER 500mg tab ORAL SCH (08:05)
[2018-12-01] MEDS: Eliquis 5mg tablet ORAL SCH ×2 (08:05→18:00)
[2018-12-01] MEDS: dilTIAZem HCl CD 120mg cap ORAL SCH (08:06)
[2018-12-01] MEDS: Lisinopril 20mg tab ORAL SCH (08:06)
--- NOTE | 2018-12-01 08:33 | Neurology Progress Note ---
Interim History Interim History ROS Limited/Unobtainable: Yes Complaints: AMS Events: no changes Interim History less agitated Objective Physical Exam Last Vital Signs Date Time Temp Pulse Resp B/P (MAP) Pulse Ox O2 Delivery O2 Flow Rate FiO2 12/01/18 08:16 82 12/01/18 08:08 126/70 12/01/18 08:00 97.7 18 96 12/01/18 07:20 Room Air Laboratory Tests Test 12/01/18 05:10 White Blood Count 5.2 K/UL (4.8-10.8) Red Blood Count 3.37 M/UL (4.70-6.10) L Hemoglobin 10.0 G/DL (14.2-18.0) L Hematocrit 30.5 % (42.0-52.0) L Mean Corpuscular Volume 91 FL (80-99) Mean Corpuscular Hemoglobin 29.6 PG (27.0-31.0) Mean Corpuscular Hemoglobin Concent 32.7 G/DL (32.0-36.0) Red Cell Distribution Width 16.5 % (11.6-14.8) H Platelet Count 182 K/UL (150-450) Mean Platelet Volume 5.7 FL (6.5-10.1) L Neutrophils (%) (Auto) 44.3 % (45.0-75.0) L Lymphocytes (%) (Auto) 31.3 % (20.0-45.0) Monocytes (%) (Auto) 17.0 % (1.0-10.0) H Eosinophils (%) (Auto) 5.7 % (0.0-3.0) H Basophils (%) (Auto) 1.7 % (0.0-2.0) General: well developed, well nourished, no acute distress Head: normocophalic, atraumatic Neck: no rigidity EENT: benign Neurologic Exam Mental Status: awake, alert, oriented x4, normal cognition, good mathematical skills, normal recent memory, normal remote memory, preserved visuospatial function Speech: normal speech, no dysarthia Language: normal language, no aphasia Cranial Nerve II: fundus normal, visual francis, no papilledema Cranial Nerves III, IV, : PERRLA, EOMI, pupils Cranial Nerve V: normal facial sensations, temporales function normal, masseters function normal, pterygoids function normal Cranial Nerve VII: no facial asymmetry, normal facial expressions Cranial Nerve VIII: normal hearing, no nystagmus Cranial Nerve IX: normal palate elevation, gag response Cranial Nerve X: no voice hoarseness Cranial Nerve XI: SCM symmetric, trapezii function normal Cranial Nerve XII: tongue midline, no tongue atrophy/fasciculations Motor System: normal muscle tone, strength 5/5, no involuntary movement, no muscle wasting Sensory: normal pinprick, normal light touch, normal position sense, normal graphesthesia Coordination: normal finger to nose bilaterally, normal heel to ramsay bilaterally, negative Romberg test Deep Tendon Reflexes: 2+ bicep (L), 2+ bicep (R), 2+ tricep (L), 2+ tricep (R) , 2+ brachioradialis (L), 2+ brachioradialis (R), 2+ knee (L), 2+ knee (R), 2+ ankle (L), 2+ ankle (R) Stance: normal Gait: stable, normal regular, heel + toe gait Impression/Recommendations Problems: (1) Anemia (2) Pre-syncope (3) Hyponatremia (4) Dehydration (5) Syncope (6) Parkinsonism (7) HTN (hypertension) (8) Hypothyroid (9) Atrial fibrillation Status: stable, unchanged Diagnostic Impression Parkinsonism stable - trail of sinemet as outpatient once metabolic abnormalities resolve PT OT Cont NOAC will benefit from rehab placement Serjio Sharpe MD Dec 01, 2018 08:33
--- NOTE | 2018-12-01 08:47 | Hematology/Onc Progress Note ---
Assessment/Plan Assessment/Plan # Anemia of chronic disease due to underlying chronic medical issues, multifactorial --> Anemia workup has been reviewed. Ferritin 83, TIBC 242 --> No evidence of hemolysis is noted, peripheral smear has been reviewed. --> Hgb goal >7. Transfuse prn. --> Epogen or iron at this time is not particularly indicated --> Medications have been reviewed --> hgb trend 14.1-->12.5--> 12.3-->11-->11.2-->10 # Thrombocytopenia - potential causes multifactorial, evaluate liver and viral etiologies to begin, also could be related to underlying medications patient has received. --> Hep panel and HIV on PRIOR admission was negative --> US abd negative for cirrhosis and hsm --> Peripheral smear ordered to evaluate for blasts/schistocytes, none noted --> abx and other meds have been reviewed (one contributor could be depakote) --> ok for ppx if plt >50k w/ either heparin or lovenox --> Transfuse if Plt < 20k and fever, or if Plt < 10k without fever --> Plt trend 118-->169k-->187k--> 102K->133k-->154k # Atelectasis, optimize pulmonary hygiene/mobilize as tolerated --> on cxr appears stable --> per pulm recs # Paroxysmal AFib, per cardiology recs--> on noac --> on eliquis # Hypertension --> controlled, sbp goal < 140 --> per cards # Hypothyroidism. --> synthroid po # Lactic acidosis, resolved # MACARENA, resolved # Placement pending --> rehab, and pt/ot The timing of this note does not necessarily reflect the time of the patient was seen. Greatly appreciate consultation! Subjective Constitutional: Denies: no symptoms, chills, fever, malaise, weakness, other HEENT: Denies: no symptoms, eye pain, blurred vision, tearing, double vision, ear pain, ear discharge, nose pain, nose congestion, throat pain, throat swelling, mouth pain, mouth swelling, other Cardiovascular: Denies: no symptoms, chest pain, edema, irregular heart rate, lightheadedness, palpitations, syncope, other Respiratory: Denies: no symptoms, cough, shortness of breath, SOB with excertion, SOB at rest, sputum, wheezing, other Gastrointestinal/Abdominal: Denies: no symptoms, abdomen distended, abdominal pain, black stools, tarry stools, blood in stool, constipated, diarrhea, difficulty swallowing, nausea, poor appetite, poor fluid intake, rectal bleeding , vomiting, other Genitourinary: Denies: no symptoms, burning, discharge, frequency, flank pain, hematuria, incontinence, pain, urgency, other Neurologic/Psychiatric: Denies: no symptoms, anxiety, depressed, emotional problems, headache, numbness, paresthesia, pre-existing deficit, seizure, tingling, tremors, weakness, other Endocrine: Denies: no symptoms, excessive sweating, flushing, intolerance to cold, intolerance to heat, increased hunger, increased thirst, increased urine, unexplained weight gain, unexplained weight loss, other Allergies: Coded Allergies: RISPERIDONE (Unverified Allergy, Unknown, 07/04/18) ZIPRASIDONE (Verified Allergy, Unknown, 06/30/18) Uncoded Allergies: RESPERIDONE (Allergy, Unknown, 06/30/18) Subjective 11/06: Pt resting in bed. No acute distress. DC planning. 11/08: Pt asleep in bed. No acute events. 11/10: Pt stable, no signs of acute distress or SOB. Venous duplex negative. 11/11: Pt resting in bed. Afebrile, no sob. MRI brain pending. 11/12: Pt in bed, sleeping. No respiratory distress noted. DC planning. 11/13: Pt awake and alert, refused morning meds. No signs of SOB or pain observed. Plt count significantly improved overnight. 11/15: Pt denies pain, no complaints of dyspnea 11/17: Pt resting in bed no chest pain or dyspnea, no other complaints 11/18: unable to place picc given do not have consent 11/20: no acute events reported. 11/21: pt refused am labs as well as am meds. h/h stable from prior labs. 11/22: pt no acute distress. Afebrile, VS reviewed. 11/23: no events reported, no f/c noted 11/24: refusing to participate in exam, labs have been reviewed 11/25: eating ensure this am, discharge planning pending, deandre FERRARI 11/26: on noac, continues, no bleeding, hgb is 11.2 11/27: refusing labs this am, discussed with him importance 11/28: resting comfortably, no acute events, no bleeding reported, no night sweats 11/30: no events, no bleeding, no chills, no major night sweats 12/01: getting rehab, pt/ot as needed, no f/c Objective Objective Current Medications Medications (Trade) Dose Ordered Sig/Eduardo Route PRN Reason Start Time Stop Time Status Last Admin Dose Admin Apixaban (Eliquis) 5 mg BID ORAL 11/07/18 18:00 12/05/18 08:59 12/01/18 08:05 Diltiazem HCl (Cardizem CD) 120 mg DAILY ORAL 11/21/18 10:50 12/21/18 10:49 12/01/18 08:06 Divalproex Sodium (Depakote ER) 500 mg DAILY ORAL 11/19/18 09:00 12/12/18 08:59 12/01/18 08:05 Gabapentin (Neurontin) 100 mg BEDTIME ORAL 11/18/18 21:00 12/18/18 20:59 11/30/18 21:19 Hydralazine HCl (Apresoline) 50 mg QIDPRN PRN ORAL HTN SBP >155 11/07/18 19:30 12/07/18 19:29 11/09/18 16:23 Levothyroxine Sodium (Synthroid) 50 mcg DAILY@0630 ORAL 11/13/18 06:30 12/13/18 06:29 12/01/18 05:55 Lisinopril (Prinivil) 20 mg DAILY ORAL 11/22/18 09:00 12/22/18 08:59 12/01/18 08:06 Lisinopril (Zestril) 10 mg QPM@1800 ORAL 11/15/18 18:00 12/15/18 17:59 11/29/18 19:04 Metoprolol Tartrate (Lopressor) 100 mg Q12HR ORAL 11/21/18 21:00 12/05/18 18:59 12/01/18 08:08 Mirtazapine (Remeron) 30 mg BEDTIME ORAL 11/12/18 21:00 12/12/18 20:59 11/30/18 21:19 Olanzapine (ZyPREXA) 30 mg BEDTIME ORAL 11/18/18 21:00 12/12/18 08:59 11/30/18 21:20 Last 24 Hour Vital Signs Date Time Temp Pulse Resp B/P (MAP) Pulse Ox O2 Delivery O2 Flow Rate FiO2 12/01/18 08:16 82 12/01/18 08:08 82 126/70 12/01/18 08:06 126/70 12/01/18 08:06 82 126/70 12/01/18 08:00 97.7 82 18 126/70 (88) 96 12/01/18 07:20 Room Air 12/01/18 04:00 97.7 74 17 97/68 (78) 96 12/01/18 00:00 97.2 77 20 112/74 (87) 97 11/30/18 21:31 108 128/76 11/30/18 20:45 Room Air 11/30/18 20:00 98.0 108 20 128/76 (93) 97 11/30/18 18:00 98/66 11/30/18 16:00 97.4 74 16 96/71 (79) 97 11/30/18 09:00 Room Air 11/30/18 04:00 97.6 64 18 121/84 (96) 99 11/30/18 00:00 97.0 68 18 97/61 (73) 97 11/29/18 20:44 74 99/63 11/29/18 20:39 Room Air 11/29/18 20:00 97.6 74 18 99/63 (75) 97 11/29/18 19:04 117/64 11/29/18 12:00 97.3 76 20 117/64 (81) 96 11/29/18 11:04 102/56 11/29/18 11:04 81 102/56 11/29/18 11:04 81 102/56 11/29/18 09:00 Room Air Intake and Output 11/30/18 12/01/18 19:00 07:00 Intake Total 474 ml 900 ml Balance 474 ml 900 ml Intake Oral 474 ml 900 ml # Voids 5 # Bowel Movements 1 Labs Test 11/29/18 14:30 12/01/18 05:10 Sodium Level 138 MMOL/L (136-145) Potassium Level 4.2 MMOL/L (3.5-5.1) Chloride Level 101 MMOL/L (98-107) Carbon Dioxide Level 32 MMOL/L (21-32) Anion Gap 5 mmol/L (5-15) Blood Urea Nitrogen 33 mg/dL (7-18) Creatinine 1.2 MG/DL (0.55-1.30) Estimat Glomerular Filtration Rate > 60 mL/min (>60) Glucose Level 156 MG/DL (74-106) Calcium Level 9.2 MG/DL (8.5-10.1) White Blood Count 5.2 K/UL (4.8-10.8) Red Blood Count 3.37 M/UL (4.70-6.10) Hemoglobin 10.0 G/DL (14.2-18.0) Hematocrit 30.5 % (42.0-52.0) Mean Corpuscular Volume 91 FL (80-99) Mean Corpuscular Hemoglobin 29.6 PG (27.0-31.0) Mean Corpuscular Hemoglobin Concent 32.7 G/DL (32.0-36.0) Red Cell Distribution Width 16.5 % (11.6-14.8) Platelet Count 182 K/UL (150-450) Mean Platelet Volume 5.7 FL (6.5-10.1) Neutrophils (%) (Auto) 44.3 % (45.0-75.0) Lymphocytes (%) (Auto) 31.3 % (20.0-45.0) Monocytes (%) (Auto) 17.0 % (1.0-10.0) Eosinophils (%) (Auto) 5.7 % (0.0-3.0) Basophils (%) (Auto) 1.7 % (0.0-2.0) Height (Feet): 5 Height (Inches): 6.00 Weight (Pounds): 120 Objective PHYSICAL EXAMINATION: VITAL SIGNS: Have been reviewed. HEENT: PERRLA. NECK: Supple. No lymphadenopathy. CHEST: Clear to auscultation. CARDIOVASCULAR: Regular rate and rhythm. No murmurs or extra sounds. GASTROINTESTINAL: Soft, nontender, and nondistended. No organomegaly. EXTREMITIES: No edema. Moves all four extremities. NEUROLOGIC: Sensory intact to light touch. Reflexes are equal on both sides. Bennie Goss MD Dec 01, 2018 08:47
[2018-12-01 11:49] VITALS: BP 99/61
--- NOTE | 2018-12-01 13:54 | NUR ---
CASE MANAGEMENT:REVIEW 12/01/18 SI: ANEMIA. AFIB W/RVR NON COMPLIANCE 98.0 67 18 99/61 96% ON RA H/H-10.0/30.5 IS: DEPAKOTE 500MG PO QD ZYPREXA 30MG PO QHS NEURONTIN 100MG PO QHS REMERON 30MG PO QHS LISINOPRIL PO QD SYNTHROID PO QD CARDIZEM PO QD LOPRESSOR PO Q12 ELIQUIS PO BID : MED/SURG STATUS 4 EAST DCP: FROM [facility] NAYAK PLAN: HAS BEEN ON PSYCH MEDS SINCE 11/12/18
--- NOTE | 2018-12-01 13:56 | NUR ---
DISCHARGE PLANNING ABSTRACT SEARCHER CALLED AND LEFT VMM FOR PUBLIC GUARDIAN DEPUTY [facility] T: [phone] REGARDING PLACEMENT
--- NOTE | 2018-12-01 15:43 | NUR ---
P.T Note: Pt refused to participate in P.T . Multiple attempts were made however patient became irritable upon further encouragement.
--- NOTE | 2018-12-01 16:54 | General Progress Note ---
Assessment/Plan Status: stable, unchanged Assessment/Plan: Assessment/Plan Status: stable, unchanged Assessment/Plan: 63 y/o man with hx of paroxysmal atrial fibrillation, presented to the hospital with pre-syncope, found to have rapid atrial fibrillation. #Paroxysmal Atrial Fibrillation #Atrial fibrillation with RVR - Cont beta zack and Diltiazem for rate control - holding parameters. - Cont NOAC.. - echo did not show any remarkable changes - Apprec cardiology recs # Orthostatic hypotension - Serial Orthostatic vital signs - Monitor OFF IVF and follow up. #Anemia due to chronic illness #Thrombocytopenia - Hgb and platelet count appeared to be at baseline, seen by Hematology, no new changes recommended. Labs in AM #unstable gait -continue PT ( patient refused treatment 11/20 and not seen since then by PT ) - PATIENT WILL NEED TO BE WITHOUT FWW in order to return to his [facility]. Otherwise, will need new placement. personal fitness manager follow up is needed. SW note for conservator reviewed. #Behavorial disorder -psych meds restarted -psychiatry consulted # Disposition Difficult placement. Per employment case manager no insurance available. Last notes reported [facility]. Need to continue efforts by CM and SW to place. Medically stable for discharge when placement is approved. CM notes reviewed and public guardian response pending. Subjective Allergies: Coded Allergies: RISPERIDONE (Unverified Allergy, Unknown, 07/04/18) ZIPRASIDONE (Verified Allergy, Unknown, 06/30/18) Uncoded Allergies: RESPERIDONE (Allergy, Unknown, 06/30/18) All Systems: reviewed and negative except above Objective Last 24 Hour Vital Signs Date Time Temp Pulse Resp B/P (MAP) Pulse Ox O2 Delivery O2 Flow Rate FiO2 12/01/18 11:49 98.0 67 18 99/61 (74) 96 12/01/18 08:16 82 12/01/18 08:08 82 126/70 12/01/18 08:06 126/70 12/01/18 08:06 82 126/70 12/01/18 08:00 97.7 82 18 126/70 (88) 96 12/01/18 07:20 Room Air 12/01/18 04:00 97.7 74 17 97/68 (78) 96 12/01/18 00:00 97.2 77 20 112/74 (87) 97 7/15/19 21:31 108 128/76 11/30/18 20:45 Room Air 11/30/18 20:00 98.0 108 20 128/76 (93) 97 11/30/18 18:00 98/66 Intake and Output 11/30/18 12/01/18 18:59 06:59 Intake Total 474 ml 900 ml Balance 474 ml 900 ml Intake Oral 474 ml 900 ml # Voids 5 # Bowel Movements 1 Laboratory Tests 12/01/18 05:10: White Blood Count 5.2, Red Blood Count 3.37L, Hemoglobin 10.0L, Hematocrit 30.5L , Mean Corpuscular Volume 91, Mean Corpuscular Hemoglobin 29.6, Mean Corpuscular Hemoglobin Concent 32.7, Red Cell Distribution Width 16.5H, Platelet Count 182, Mean Platelet Volume 5.7L, Neutrophils (%) (Auto) 44.3L, Lymphocytes (%) (Auto) 31.3, Monocytes (%) (Auto) 17.0H, Eosinophils (%) (Auto) 5.7H, Basophils (%) (Auto) 1.7 Height (Feet): 5 Height (Inches): 6.00 Weight (Pounds): 120 General Appearance: WD/WN EENT: PERRL/EOMI Neck: non-tender Cardiovascular: normal rate Respiratory/Chest: lungs clear Abdomen: non tender Neurologic: nursing department chairperson II-XII grossly normal Galo Wallis MD Dec 01, 2018 16:54
[2018-12-01] MEDS: Lisinopril 10mg tab ORAL SCH (18:00)
--- NOTE | 2018-12-01 19:09 | NUR ---
HAND-OFF: Report given to TONG JARAMILLO.PT.STABLE SLEEPING..
--- NOTE | 2018-12-01 19:10 | NUR ---
NURSE NOTES: Received report & pt from ELLA Banerjee. Pt lying in bed, a&ox2, in room air. No s/s of acute distress & no c/o pain at this time. No IV access noted & MD aware per report. Bed in lowest position, call light within reach. Will continue to monitor.
[2018-12-01 20:00] VITALS: BP 90/60
[2018-12-01] MEDS: OLANZapine 10mg tab ORAL SCH (21:04)
[2018-12-01 22:45] VITALS: BP 90/60
[2018-12-02 00:59] VITALS: BP 96/63
--- NOTE | 2018-12-02 01:01 | NUR ---
NURSE NOTES: Pt complaining of headache 01/26. Called Dr. Sargent's exchange # & left a msg. Dr. Calero called back & gave an order for Tylenol 650mg PO Q4HR PRN for mild pain. Carried out.
--- NOTE | 2018-12-02 05:10 | NUR ---
NURSE NOTES: Pt refused lab draw. Explained risks & benefits but pt continued to refuse. RN told atmospheric sciences professor to come back later in the AM.
--- NOTE | 2018-12-02 07:27 | NUR ---
HAND-OFF: Report given to ELLA Chahal. Rounds done. Pt in stable condition.
--- NOTE | 2018-12-02 07:37 | NUR ---
NURSE NOTES: Pt walking around with use of walker. Talkative and more alert. Speaking clearly today, Monitored for safety. Placement pending .
[2018-12-02 08:00] VITALS: BP 136/66
[2018-12-02] MEDS: dilTIAZem HCl CD 120mg cap ORAL SCH (08:37)
[2018-12-02] MEDS: Eliquis 5mg tablet ORAL SCH ×2 (08:38→17:58)
[2018-12-02] MEDS: Depakote ER 500mg tab ORAL SCH (08:41)
[2018-12-02] MEDS: Lisinopril 20mg tab ORAL SCH (08:42)
--- NOTE | 2018-12-02 08:43 | NUR ---
NURSE NOTES: Pt refused blood pressure medication risk and benefits explained. Blood pressure, is elevated today above baseline, 95. Pt encouraged to drink water, due to complaints of headache . Will continue to monitor.
--- NOTE | 2018-12-02 10:14 | NUR ---
NURSE NOTES: Pt refuse ortho static blood pressure. r/b explained/ " Im okay"
--- NOTE | 2018-12-02 12:04 | NUR ---
*-* INSURANCE *-* UPDATED CLINICALS FAXED: [facility] / [facility] [place] THE SS# THE REF#..... NO RETAIL TIRE SALES MANAGER ASSIGNED P- [phone].... F- [phone]...REVIEW/CLINICAL
--- NOTE | 2018-12-02 12:38 | NUR ---
CASE MANAGEMENT:REVIEW 12/02/18 SI: ANEMIA. AFIB W/RVR NON COMPLIANCE 97.8 76 16 136/66 96% ON RA IS: DEPAKOTE 500MG PO QD ZYPREXA 30MG PO QHS NEURONTIN 100MG PO QHS REMERON 30MG PO QHS LISINOPRIL PO QD SYNTHROID PO QD CARDIZEM PO QD LOPRESSOR PO Q12 ELIQUIS PO BID : MED/SURG STATUS 4 EAST DCP: FROM [facility] NAYAK PLAN: HAS BEEN ON PSYCH MEDS SINCE 11/12/18
--- NOTE | 2018-12-02 12:39 | NUR ---
DISCHARGE PLANNING CONTACTED GILDA WITH "[facility]" AND ASKED HER TO CONTACT PUBLIC GUARDIAN [facility] SES[facility] SO THEY CAN COORDINATE A DISCHARGE DESTINATION FOR THIS PATIENT RIANNA T: [phone] ISRAEL SESAY T: [phone]
--- NOTE | 2018-12-02 13:24 | Hematology/Onc Progress Note ---
Assessment/Plan Assessment/Plan # Anemia of chronic disease due to underlying chronic medical issues, multifactorial --> Anemia workup has been reviewed. Ferritin 83, TIBC 242 --> No evidence of hemolysis is noted, peripheral smear has been reviewed. --> Hgb goal >7. Transfuse prn. --> Epogen or iron at this time is not particularly indicated --> Medications have been reviewed --> hgb trend 14.1-->12.5--> 12.3-->11-->11.2-->10 # Thrombocytopenia - potential causes multifactorial, evaluate liver and viral etiologies to begin, also could be related to underlying medications patient has received. --> Hep panel and HIV on PRIOR admission was negative --> US abd negative for cirrhosis and hsm --> Peripheral smear ordered to evaluate for blasts/schistocytes, none noted --> abx and other meds have been reviewed (one contributor could be depakote) --> ok for ppx if plt >50k w/ either heparin or lovenox --> Transfuse if Plt < 20k and fever, or if Plt < 10k without fever --> Plt trend 118-->169k-->187k--> 102K->133k-->154k # Atelectasis, optimize pulmonary hygiene/mobilize as tolerated --> on cxr appears stable --> per pulm recs # Paroxysmal AFib, per cardiology recs--> on noac --> on eliquis # Hypertension --> controlled, sbp goal < 140 --> per cards # Hypothyroidism. --> synthroid po # Lactic acidosis, resolved # MACARENA, resolved # Placement pending --> rehab, and pt/ot The timing of this note does not necessarily reflect the time of the patient was seen. Greatly appreciate consultation! Subjective Constitutional: Denies: no symptoms, chills, fever, malaise, weakness, other HEENT: Denies: no symptoms, eye pain, blurred vision, tearing, double vision, ear pain, ear discharge, nose pain, nose congestion, throat pain, throat swelling, mouth pain, mouth swelling, other Respiratory: Reports: no symptoms, cough, shortness of breath, SOB with excertion, SOB at rest, sputum, wheezing, other Gastrointestinal/Abdominal: Denies: no symptoms, abdomen distended, abdominal pain, black stools, tarry stools, blood in stool, constipated, diarrhea, difficulty swallowing, nausea, poor appetite, poor fluid intake, rectal bleeding , vomiting, other Neurologic/Psychiatric: Denies: no symptoms, anxiety, depressed, emotional problems, headache, numbness, paresthesia, pre-existing deficit, seizure, tingling, tremors, weakness, other Endocrine: Denies: no symptoms, excessive sweating, flushing, intolerance to cold, intolerance to heat, increased hunger, increased thirst, increased urine, unexplained weight gain, unexplained weight loss, other Allergies: Coded Allergies: RISPERIDONE (Unverified Allergy, Unknown, 07/04/18) ZIPRASIDONE (Verified Allergy, Unknown, 06/30/18) Uncoded Allergies: RESPERIDONE (Allergy, Unknown, 06/30/18) Subjective 11/06: Pt resting in bed. No acute distress. DC planning. 11/08: Pt asleep in bed. No acute events. 11/10: Pt stable, no signs of acute distress or SOB. Venous duplex negative. 11/11: Pt resting in bed. Afebrile, no sob. MRI brain pending. 11/12: Pt in bed, sleeping. No respiratory distress noted. DC planning. 11/13: Pt awake and alert, refused morning meds. No signs of SOB or pain observed. Plt count significantly improved overnight. 11/15: Pt denies pain, no complaints of dyspnea 11/17: Pt resting in bed no chest pain or dyspnea, no other complaints 11/18: unable to place picc given do not have consent 11/20: no acute events reported. 11/21: pt refused am labs as well as am meds. h/h stable from prior labs. 11/22: pt no acute distress. Afebrile, VS reviewed. 11/23: no events reported, no f/c noted 11/24: refusing to participate in exam, labs have been reviewed 11/25: eating ensure this am, discharge planning pending, dw CM 11/26: on noac, continues, no bleeding, hgb is 11.2 11/27: refusing labs this am, discussed with him importance 11/28: resting comfortably, no acute events, no bleeding reported, no night sweats 7/15: no events, no bleeding, no chills, no major night sweats 12/01: getting rehab, pt/ot as needed, no f/c 12/02: walking around the priest with a FWW, says feeling better Objective Objective Current Medications Medications (Trade) Dose Ordered Sig/Eduardo Route PRN Reason Start Time Stop Time Status Last Admin Dose Admin Acetaminophen (Tylenol) 650 mg Q4H PRN ORAL Mild Pain/Temp > 100.5 12/02/18 01:00 01/01/19 00:59 12/02/18 08:40 Apixaban (Eliquis) 5 mg BID ORAL 11/07/18 18:00 12/05/18 08:59 12/02/18 08:38 Diltiazem HCl (Cardizem CD) 120 mg DAILY ORAL 11/21/18 10:50 12/21/18 10:49 12/01/18 08:06 Divalproex Sodium (Depakote ER) 500 mg DAILY ORAL 11/19/18 09:00 12/12/18 08:59 12/02/18 08:41 Gabapentin (Neurontin) 100 mg BEDTIME ORAL 11/18/18 21:00 12/18/18 20:59 12/01/18 21:04 Hydralazine HCl (Apresoline) 50 mg QIDPRN PRN ORAL HTN SBP >155 11/07/18 19:30 12/07/18 19:29 11/09/18 16:23 Levothyroxine Sodium (Synthroid) 50 mcg DAILY@0630 ORAL 11/13/18 06:30 12/13/18 06:29 12/02/18 06:08 Lisinopril (Prinivil) 20 mg DAILY ORAL 11/22/18 09:00 12/22/18 08:59 12/01/18 08:06 Lisinopril (Zestril) 10 mg QPM@1800 ORAL 11/15/18 18:00 12/15/18 17:59 11/29/18 19:04 Metoprolol Tartrate (Lopressor) 100 mg Q12HR ORAL 11/21/18 21:00 12/05/18 18:59 12/01/18 08:08 Mirtazapine (Remeron) 30 mg BEDTIME ORAL 11/12/18 21:00 12/12/18 20:59 12/01/18 21:04 Olanzapine (ZyPREXA) 30 mg BEDTIME ORAL 11/18/18 21:00 12/12/18 08:59 12/01/18 21:04 Last 24 Hour Vital Signs Date Time Temp Pulse Resp B/P (MAP) Pulse Ox O2 Delivery O2 Flow Rate FiO2 12/02/18 09:00 Room Air 12/02/18 08:42 136/66 12/02/18 08:41 76 136/66 12/02/18 08:37 76 136/66 12/02/18 08:00 97.8 76 16 136/66 (89) 96 12/02/18 00:59 97.6 71 17 96/63 (74) 96 12/01/18 21:30 67 90/60 12/01/18 21:00 Room Air 12/01/18 20:00 97.8 67 16 90/60 (70) 96 12/01/18 18:00 99/61 12/01/18 11:49 98.0 67 18 99/61 (74) 96 12/01/18 08:16 82 12/01/18 08:08 82 126/70 12/01/18 08:06 126/70 12/01/18 08:06 82 126/70 12/01/18 08:00 97.7 82 18 126/70 (88) 96 12/01/18 07:20 Room Air 12/01/18 04:00 97.7 74 17 97/68 (78) 96 12/01/18 00:00 97.2 77 20 112/74 (87) 97 11/30/18 21:31 108 128/76 11/30/18 20:45 Room Air 11/30/18 20:00 98.0 108 20 128/76 (93) 97 11/30/18 18:00 98/66 11/30/18 16:00 97.4 74 16 96/71 (79) 97 Intake and Output 12/01/18 12/02/18 19:00 07:00 Intake Total 800 ml 860 ml Balance 800 ml 860 ml Intake Oral 800 ml 860 ml # Voids 3 4 Labs Test 11/29/18 14:30 12/01/18 05:10 Sodium Level 138 MMOL/L (136-145) Potassium Level 4.2 MMOL/L (3.5-5.1) Chloride Level 101 MMOL/L (98-107) Carbon Dioxide Level 32 MMOL/L (21-32) Anion Gap 5 mmol/L (5-15) Blood Urea Nitrogen 33 mg/dL (7-18) Creatinine 1.2 MG/DL (0.55-1.30) Estimat Glomerular Filtration Rate > 60 mL/min (>60) Glucose Level 156 MG/DL (74-106) Calcium Level 9.2 MG/DL (8.5-10.1) White Blood Count 5.2 K/UL (4.8-10.8) Red Blood Count 3.37 M/UL (4.70-6.10) Hemoglobin 10.0 G/DL (14.2-18.0) Hematocrit 30.5 % (42.0-52.0) Mean Corpuscular Volume 91 FL (80-99) Mean Corpuscular Hemoglobin 29.6 PG (27.0-31.0) Mean Corpuscular Hemoglobin Concent 32.7 G/DL (32.0-36.0) Red Cell Distribution Width 16.5 % (11.6-14.8) Platelet Count 182 K/UL (150-450) Mean Platelet Volume 5.7 FL (6.5-10.1) Neutrophils (%) (Auto) 44.3 % (45.0-75.0) Lymphocytes (%) (Auto) 31.3 % (20.0-45.0) Monocytes (%) (Auto) 17.0 % (1.0-10.0) Eosinophils (%) (Auto) 5.7 % (0.0-3.0) Basophils (%) (Auto) 1.7 % (0.0-2.0) Height (Feet): 5 Height (Inches): 6.00 Weight (Pounds): 109 Objective PHYSICAL EXAMINATION: VITAL SIGNS: Have been reviewed. HEENT: PERRLA. NECK: Supple. No lymphadenopathy. CHEST: Clear to auscultation. CARDIOVASCULAR: Regular rate and rhythm. No murmurs or extra sounds. GASTROINTESTINAL: Soft, nontender, and nondistended. No organomegaly. EXTREMITIES: No edema. Moves all four extremities. NEUROLOGIC: Sensory intact to light touch. Reflexes are equal on both sides. Bennie Goss MD Dec 02, 2018 13:24
[2018-12-02] MEDS ORDERED: LORazepam 1mg tab ORAL PRN ×2 (14:00)
--- NOTE | 2018-12-02 14:59 | NUR ---
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 Veronica reviewed chart. It appears patient's SSI benefit was placed on hold in August and the [facility] Office has submitted documentation in August to have the case reinstated. WENDY spoke with Willian FERRARI [phone] at the [place] regarding payment for B&C. Per Willian patient doesn't have a pension through the [place] for long-term care placement. Veronica states she will contact SSI tomorrow to determine reinstatement. At this time patient doesn't have a source of income. WENDY discussed with VONDA. Will continue to monitor.
--- NOTE | 2018-12-02 15:11 | NUR ---
NURSE NOTES: Pt sitting at room door with a magazine for distraction. Bx is calm at this writing.
--- NOTE | 2018-12-02 15:11 | NUR ---
P.T WEEKLY PROGRESS NOTES: Pt responded well in therapy despite inconsistent in participation due to mood swing Pt is currently able to perform bed mobilities and transfer mobilities independently and safely w/o difficulties. Pt ambulates and tolerates distance of 300 ft Indep/supervision. Pt. demonstrated significant improvement in his gait dynamics/pattern , tolerance and stability as evidenced by consistent reciprocating gait pattern w/o foot dragging and LOB episodes using the FWW. Pt also able to ambulate within room distances w/o an AD however has a tendency to hold onto fixed object therefore would still require to use the FWW for safety especially for long distances and when fatigue sets in. Pt's progress has reached the plateau therefore skilled P.T service is no longer needed. Recommend DC to assisted living facility at [place]. [place] P.T services.
--- NOTE | 2018-12-02 15:44 | Neurology Progress Note ---
Interim History Interim History ROS Limited/Unobtainable: Yes Complaints: Pre-syncope Events: no changes Interim History ambulating has no complains Objective Physical Exam Last Vital Signs Date Time Temp Pulse Resp B/P (MAP) Pulse Ox O2 Delivery O2 Flow Rate FiO2 12/02/18 09:00 Room Air 12/02/18 08:42 136/66 12/02/18 08:41 76 12/02/18 08:00 97.8 16 96 General: well developed, well nourished Head: normocophalic Neck: no rigidity EENT: benign Neurologic Exam Mental Status: awake, alert, oriented x4, normal cognition, good mathematical skills, normal recent memory, normal remote memory, preserved visuospatial function Speech: normal speech, no dysarthia Language: normal language, no aphasia Cranial Nerve II: fundus normal, visual francis, no papilledema Cranial Nerves III, IV, : PERRLA, EOMI, pupils Cranial Nerve V: normal facial sensations, temporales function normal, masseters function normal, pterygoids function normal Cranial Nerve VII: no facial asymmetry, normal facial expressions Cranial Nerve VIII: normal hearing, no nystagmus Cranial Nerve IX: normal palate elevation, gag response Cranial Nerve X: no voice hoarseness Cranial Nerve XI: SCM symmetric, trapezii function normal Cranial Nerve XII: tongue midline, no tongue atrophy/fasciculations Motor System: normal muscle tone, strength 5/5, no involuntary movement, no muscle wasting Sensory: normal pinprick, normal light touch, normal position sense, normal graphesthesia Coordination: normal finger to nose bilaterally, normal heel to ramsay bilaterally, negative Romberg test Deep Tendon Reflexes: 2+ bicep (L), 2+ bicep (R), 2+ tricep (L), 2+ tricep (R) , 2+ brachioradialis (L), 2+ brachioradialis (R), 2+ knee (L), 2+ knee (R), 2+ ankle (L), 2+ ankle (R) Stance: normal Gait: stable, normal regular, heel + toe gait Impression/Recommendations Problems: (1) Anemia (2) Pre-syncope (3) Hyponatremia (4) Dehydration (5) Syncope (6) Parkinsonism (7) HTN (hypertension) (8) Hypothyroid (9) Atrial fibrillation Status: stable, unchanged Diagnostic Impression Parkinsonism stable - trail of sinemet as outpatient once metabolic abnormalities resolve PT OT Cont NOAC will benefit from rehab placement Serjio Sharpe MD Dec 02, 2018 15:44
--- NOTE | 2018-12-02 16:00 | NUR ---
NURSE NOTES: Pt required to be redirected by Henry JARAMILLO seen pt walking to elevator and pressing button. Kept near the nurses station
--- NOTE | 2018-12-02 17:01 | General Progress Note ---
Assessment/Plan Status: stable, unchanged Assessment/Plan: Assessment/Plan Status: stable, unchanged Assessment/Plan: 63 y/o man with hx of paroxysmal atrial fibrillation, presented to the hospital with pre-syncope, found to have rapid atrial fibrillation. #Paroxysmal Atrial Fibrillation #Atrial fibrillation with RVR - Cont beta zack and Diltiazem for rate control - holding parameters. - Cont NOAC.. - echo did not show any remarkable changes - Apprec cardiology recs # Orthostatic hypotension - Serial Orthostatic vital signs - Monitor OFF IVF and follow up. #Anemia due to chronic illness #Thrombocytopenia - Hgb and platelet count appeared to be at baseline, seen by Hematology, no new changes recommended. #unstable gait -continue PT ( patient refused treatment 11/20 and not seen since then by PT ) - PATIENT WILL NEED TO BE WITHOUT FWW in order to return to his [facility]. Recommend DC to assisted living facility at [place] per PT final report. Otherwise, will need new placement. contact manager follow up is needed. SW note for conservator reviewed. #Behavorial disorder -psych meds restarted -psychiatry consulted # Disposition Difficult placement. Per ed case manager no insurance available. [facility] Need to continue efforts by CM and SW to place. Medically stable for discharge when placement is approved. CM notes reviewed and public guardian response pending. Subjective ROS Limited/Unobtainable: Yes Allergies: Coded Allergies: RISPERIDONE (Unverified Allergy, Unknown, 07/04/18) ZIPRASIDONE (Verified Allergy, Unknown, 06/30/18) Uncoded Allergies: RESPERIDONE (Allergy, Unknown, 06/30/18) Objective Last 24 Hour Vital Signs Date Time Temp Pulse Resp B/P (MAP) Pulse Ox O2 Delivery O2 Flow Rate FiO2 12/02/18 09:00 Room Air 12/02/18 08:42 136/66 12/02/18 08:41 76 136/66 12/02/18 08:37 76 136/66 12/02/18 08:00 97.8 76 16 136/66 (89) 96 12/02/18 00:59 97.6 71 17 96/63 (74) 96 12/01/18 21:30 67 90/60 12/01/18 21:00 Room Air 12/01/18 20:00 97.8 67 16 90/60 (70) 96 12/01/18 18:00 99/61 Intake and Output 12/01/18 12/02/18 19:00 07:00 Intake Total 800 ml 860 ml Balance 800 ml 860 ml Intake Oral 800 ml 860 ml # Voids 3 4 Height (Feet): 5 Height (Inches): 6.00 Weight (Pounds): 109 General Appearance: WD/WN, no apparent distress EENT: PERRL/EOMI Neck: non-tender, abnormal alignment Cardiovascular: normal peripheral pulses Respiratory/Chest: chest wall non-tender, lungs clear Abdomen: normal bowel sounds Extremities: normal range of motion 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
[2018-12-02] MEDS: Lisinopril 10mg tab ORAL SCH (17:58)
--- NOTE | 2018-12-02 18:31 | NUR ---
NURSE NOTES: Mainor provided pt currently laying down. Dr Wallis covering Dr maude Sargent called. Orders obtained for Mainor
--- NOTE | 2018-12-02 18:32 | NUR ---
NURSE NOTES: Orders for ativan obtained earlier in shift, from Dr Wallis covering Dr for Dr Sargent. Pt currently laying down Ativan administered and effective.
--- NOTE | 2018-12-02 19:29 | NUR ---
NURSE NOTES: Pt currently sleeping. Call light is in reach , bed is in safe position.
--- NOTE | 2018-12-02 19:29 | NUR ---
HAND-OFF: Report given to Margie JARAMILLO made aware of new order for Ativam 1mg po q4. Also informed that pt had to be rediredcted 2 to walking to to elevator. .
--- NOTE | 2018-12-02 19:30 | NUR ---
NURSE NOTES: Received report & pt from ELLA Chahal. Pt lying in bed, a&ox2, in room air, asleep but easily arousable. No s/s of acute distress & no c/o pain at this time. No IV access noted & MD aware per report. Bed in lowest position, call light within reach. Will continue to monitor.
[2018-12-02] MEDS: OLANZapine 10mg tab ORAL SCH (21:00)
[2018-12-03 04:00] VITALS: BP 126/92
--- NOTE | 2018-12-03 07:24 | NUR ---
HAND-OFF: Report given to ELLA Briones. Rounds done. Pt in stable condition.
--- NOTE | 2018-12-03 07:30 | NUR ---
NURSE NOTES: Received pt from ELLA FORTUNE. Pt is confused x2. pt is in RA, No SOB or acute respiratory distress noted. pt has no iv access, MD is aware. Pt is eating breakfast independently. no complain of pain at this moment. pt refused labs, MD is aware. All needs attended, bed is locked and is in the lowest position. call light within easy reach. will continue to monitor.
[2018-12-03 08:00] VITALS: BP 129/90
[2018-12-03] MEDS: dilTIAZem HCl CD 120mg cap ORAL SCH (08:23)
[2018-12-03] MEDS: Depakote ER 500mg tab ORAL SCH (08:23)
[2018-12-03] MEDS: Lisinopril 20mg tab ORAL SCH (08:24)
[2018-12-03] MEDS: Eliquis 5mg tablet ORAL SCH ×2 (08:24→17:15)
--- NOTE | 2018-12-03 09:41 | Hematology/Onc Progress Note ---
Assessment/Plan Assessment/Plan # Anemia of chronic disease due to underlying chronic medical issues, multifactorial --> Anemia workup has been reviewed. Ferritin 83, TIBC 242 --> No evidence of hemolysis is noted, peripheral smear has been reviewed. --> Hgb goal >7. Transfuse prn. --> Epogen or iron at this time is not particularly indicated --> Medications have been reviewed --> hgb trend 14.1-->12.5--> 12.3-->11-->11.2-->10 # Thrombocytopenia - potential causes multifactorial, evaluate liver and viral etiologies to begin, also could be related to underlying medications patient has received. --> Hep panel and HIV on PRIOR admission was negative --> US abd negative for cirrhosis and hsm --> Peripheral smear ordered to evaluate for blasts/schistocytes, none noted --> abx and other meds have been reviewed (one contributor could be depakote) --> ok for ppx if plt >50k w/ either heparin or lovenox --> Transfuse if Plt < 20k and fever, or if Plt < 10k without fever --> Plt trend 118-->169k-->187k--> 102K->133k-->154k-->182k # Atelectasis, optimize pulmonary hygiene/mobilize as tolerated --> on cxr appears stable --> per pulm recs # Paroxysmal AFib, per cardiology recs--> on noac --> on eliquis # Hypertension --> controlled, sbp goal < 140 --> per cards # Hypothyroidism. --> synthroid po # Lactic acidosis, resolved # MACARENA, resolved # Placement pending --> rehab, and pt/ot The timing of this note does not necessarily reflect the time of the patient was seen. Greatly appreciate consultation! Subjective HEENT: Denies: no symptoms, eye pain, blurred vision, tearing, double vision, ear pain, ear discharge, nose pain, nose congestion, throat pain, throat swelling, mouth pain, mouth swelling, other Cardiovascular: Denies: no symptoms, chest pain, edema, irregular heart rate, lightheadedness, palpitations, syncope, other Respiratory: Denies: no symptoms, cough, shortness of breath, SOB with excertion, SOB at rest, sputum, wheezing, other Gastrointestinal/Abdominal: Denies: no symptoms, abdomen distended, abdominal pain, black stools, tarry stools, blood in stool, constipated, diarrhea, difficulty swallowing, nausea, poor appetite, poor fluid intake, rectal bleeding , vomiting, other Genitourinary: Denies: no symptoms, burning, discharge, frequency, flank pain, hematuria, incontinence, pain, urgency, other Neurologic/Psychiatric: Denies: no symptoms, anxiety, depressed, emotional problems, headache, numbness, paresthesia, pre-existing deficit, seizure, tingling, tremors, weakness, other Endocrine: Denies: no symptoms, excessive sweating, flushing, intolerance to cold, intolerance to heat, increased hunger, increased thirst, increased urine, unexplained weight gain, unexplained weight loss, other Hematologic/Lymphatic: Denies: no symptoms, anemia, easy bleeding, easy bruising, adenopathy, other Allergies: Coded Allergies: RISPERIDONE (Unverified Allergy, Unknown, 07/04/18) ZIPRASIDONE (Verified Allergy, Unknown, 06/30/18) Uncoded Allergies: RESPERIDONE (Allergy, Unknown, 06/30/18) Subjective 11/06: Pt resting in bed. No acute distress. DC planning. 11/08: Pt asleep in bed. No acute events. 11/10: Pt stable, no signs of acute distress or SOB. Venous duplex negative. 11/11: Pt resting in bed. Afebrile, no sob. MRI brain pending. 11/12: Pt in bed, sleeping. No respiratory distress noted. DC planning. 11/13: Pt awake and alert, refused morning meds. No signs of SOB or pain observed. Plt count significantly improved overnight. 11/15: Pt denies pain, no complaints of dyspnea 11/17: Pt resting in bed no chest pain or dyspnea, no other complaints 11/18: unable to place picc given do not have consent 11/20: no acute events reported. 11/21: pt refused am labs as well as am meds. h/h stable from prior labs. 11/22: pt no acute distress. Afebrile, VS reviewed. 11/23: no events reported, no f/c noted 11/24: refusing to participate in exam, labs have been reviewed 11/25: eating ensure this am, discharge planning pending, deandre FERRARI 11/26: on noac, continues, no bleeding, hgb is 11.2 11/27: refusing labs this am, discussed with him importance 11/28: resting comfortably, no acute events, no bleeding reported, no night sweats 11/29: no events, no bleeding reported, no night sweats 11/30: no events, no bleeding, no chills, no major night sweats 12/01: getting rehab, pt/ot as needed, no f/c 12/02: walking around the priest with a FWW, says feeling better 12/03: given ativan overnight, feeling better Objective Objective Current Medications Medications (Trade) Dose Ordered Sig/Eduardo Route PRN Reason Start Time Stop Time Status Last Admin Dose Admin Acetaminophen (Tylenol) 650 mg Q4H PRN ORAL Mild Pain/Temp > 100.5 12/02/18 01:00 01/01/19 00:59 12/02/18 08:40 Apixaban (Eliquis) 5 mg BID ORAL 11/07/18 18:00 12/05/18 08:59 12/03/18 08:24 Diltiazem HCl (Cardizem CD) 120 mg DAILY ORAL 11/21/18 10:50 12/21/18 10:49 12/03/18 08:23 Divalproex Sodium (Depakote ER) 500 mg DAILY ORAL 11/19/18 09:00 12/12/18 08:59 12/03/18 08:23 Gabapentin (Neurontin) 100 mg BEDTIME ORAL 11/18/18 21:00 12/18/18 20:59 12/01/18 21:04 Hydralazine HCl (Apresoline) 50 mg QIDPRN PRN ORAL HTN SBP >155 11/07/18 19:30 12/07/18 19:29 11/09/18 16:23 Levothyroxine Sodium (Synthroid) 50 mcg DAILY@0630 ORAL 11/13/18 06:30 12/13/18 06:29 12/03/18 05:43 Lisinopril (Prinivil) 20 mg DAILY ORAL 11/22/18 09:00 12/22/18 08:59 12/03/18 08:24 Lisinopril (Zestril) 10 mg QPM@1800 ORAL 11/15/18 18:00 12/15/18 17:59 11/29/18 19:04 Lorazepam (Ativan) 1 mg Q4H PRN ORAL For Anxiety 12/02/18 14:00 12/09/18 13:59 12/02/18 17:57 Metoprolol Tartrate (Lopressor) 100 mg Q12HR ORAL 11/21/18 21:00 12/05/18 18:59 12/03/18 08:24 Mirtazapine (Remeron) 30 mg BEDTIME ORAL 11/12/18 21:00 12/12/18 20:59 12/01/18 21:04 Olanzapine (ZyPREXA) 30 mg BEDTIME ORAL 11/18/18 21:00 12/12/18 08:59 12/01/18 21:04 Last 24 Hour Vital Signs Date Time Temp Pulse Resp B/P (MAP) Pulse Ox O2 Delivery O2 Flow Rate FiO2 12/03/18 08:24 129/90 12/03/18 08:24 100 129/90 12/03/18 08:23 100 129/90 12/03/18 08:00 97.9 100 17 129/90 (103) 97 12/03/18 04:00 97.5 100 18 126/92 (103) 97 12/02/18 21:00 Room Air 12/02/18 09:00 0 12/02/18 09:00 Room Air 12/02/18 08:42 136/66 12/02/18 08:41 76 136/66 12/02/18 08:37 76 136/66 12/02/18 08:00 97.8 76 16 136/66 (89) 96 12/02/18 00:59 97.6 71 17 96/63 (74) 96 12/01/18 21:30 67 90/60 12/01/18 21:00 Room Air 12/01/18 20:00 97.8 67 16 90/60 (70) 96 12/01/18 18:00 99/61 12/01/18 11:49 98.0 67 18 99/61 (74) 96 Intake and Output 12/02/18 12/03/18 19:00 07:00 # Voids 2 Labs Test 12/01/18 05:10 White Blood Count 5.2 K/UL (4.8-10.8) Red Blood Count 3.37 M/UL (4.70-6.10) Hemoglobin 10.0 G/DL (14.2-18.0) Hematocrit 30.5 % (42.0-52.0) Mean Corpuscular Volume 91 FL (80-99) Mean Corpuscular Hemoglobin 29.6 PG (27.0-31.0) Mean Corpuscular Hemoglobin Concent 32.7 G/DL (32.0-36.0) Red Cell Distribution Width 16.5 % (11.6-14.8) Platelet Count 182 K/UL (150-450) Mean Platelet Volume 5.7 FL (6.5-10.1) Neutrophils (%) (Auto) 44.3 % (45.0-75.0) Lymphocytes (%) (Auto) 31.3 % (20.0-45.0) Monocytes (%) (Auto) 17.0 % (1.0-10.0) Eosinophils (%) (Auto) 5.7 % (0.0-3.0) Basophils (%) (Auto) 1.7 % (0.0-2.0) Height (Feet): 5 Height (Inches): 6.00 Weight (Pounds): 109 Objective PHYSICAL EXAMINATION: VITAL SIGNS: Have been reviewed. HEENT: PERRLA. NECK: Supple. No lymphadenopathy. CHEST: Clear to auscultation. CARDIOVASCULAR: Regular rate and rhythm. No murmurs or extra sounds. GASTROINTESTINAL: Soft, nontender, and nondistended. No organomegaly. EXTREMITIES: No edema. Moves all four extremities. NEUROLOGIC: Sensory intact to light touch. Reflexes are equal on both sides. Bennie Goss MD Dec 03, 2018 09:40
[2018-12-03 12:00] VITALS: BP 125/88
--- NOTE | 2018-12-03 12:06 | NUR ---
Social Service Note Message left for supervisor model making Veronica Hayes [phone] following up on reinstatement of income and placement. Will continue to follow up.
--- NOTE | 2018-12-03 12:41 | NUR ---
CASE MANAGEMENT:REVIEW 12/03/18 SI: ANEMIA. AFIB W/RVR NON COMPLIANCE 97.8 76 16 136/66 96% ON RA IS: DEPAKOTE 500MG PO QD* ZYPREXA 30MG PO QHS* NEURONTIN 100MG PO QHS* REMERON 30MG PO QHS* LISINOPRIL PO QD* SYNTHROID PO QD* CARDIZEM PO QD* LOPRESSOR PO Q12* ELIQUIS PO BID* ATIVAN PO Q4HRS PRN : MED/SURG STATUS 4 EAST DCP: FROM [facility]KK[facility] NAYAK PLAN: HAS BEEN ON PSYCH MEDS SINCE 11/12/18 PLACEMENT ISSUE D/T PUBLIC GUARDIAN
--- NOTE | 2018-12-03 13:16 | NUR ---
*-* INSURANCE *-* UPDATED CLINICALS FAXED: [facility] [place] [facility] [place]# THE REF#..... NO TRANSPORTATION SECURITY SCREENER ASSIGNED P- [phone].... F- [phone]...REVIEW/CLINICAL
[2018-12-03 16:00] VITALS: BP 98/69
--- NOTE | 2018-12-03 17:07 | NUR ---
Social Service Note WENDY spoke with Daily Sequeira [phone] who states Veronica spoke with SSI and patient's SSI will be reinstated December 17. WENDY inquired about placement as it is 13 days until December 17. Daily indicted she will contact various board and cares but could not guarantee she would locate placement due to patient currently not having income. WENDY updated CM. Will continue to follow up.
--- NOTE | 2018-12-03 17:32 | General Progress Note ---
Assessment/Plan Status: stable, unchanged Assessment/Plan: Assessment/Plan Status: stable, unchanged Assessment/Plan: 63 y/o man with hx of paroxysmal atrial fibrillation, presented to the hospital with pre-syncope, found to have rapid atrial fibrillation. #Paroxysmal Atrial Fibrillation #Atrial fibrillation with RVR - Cont beta zack and Diltiazem for rate control - holding parameters. - Cont NOAC.. - echo did not show any remarkable changes - Apprec cardiology recs # Orthostatic hypotension - Serial Orthostatic vital signs - Monitor OFF IVF and follow up. #Anemia due to chronic illness #Thrombocytopenia - Hgb and platelet count appeared to be at baseline, seen by Hematology, no new changes recommended. #unstable gait -continue PT ( patient refused treatment 11/20 and not seen since then by PT ) - PATIENT WILL NEED TO BE WITHOUT FWW in order to return to his [facility]. Recommend DC to assisted living facility at [place] per PT final report. Otherwise, will need new placement. distributor sales manager follow up is needed. SW note for conservator reviewed. #Behavorial disorder -psych meds restarted -psychiatry consulted # Disposition Difficult placement. Per counter caser no insurance available. [facility]. Need to continue efforts by CM and SW to place. WENDY spoke with Daily Sequeira [phone] who states Veronica spoke with SSI and patient' s SSI will be reinstated December 17. WENDY inquired about placement as it is 13 days until December 17. Daily indicted she will contact various board and cares but could not guarantee she would locate placement due to patient currently not having income. WENDY updated CM. Will continue to follow up. Medically stable for discharge when placement is approved. CM notes reviewed and public guardian response pending. Subjective ROS Limited/Unobtainable: Yes Allergies: Coded Allergies: RISPERIDONE (Unverified Allergy, Unknown, 07/04/18) ZIPRASIDONE (Verified Allergy, Unknown, 06/30/18) Uncoded Allergies: RESPERIDONE (Allergy, Unknown, 06/30/18) All Systems: reviewed and negative except above Objective Last 24 Hour Vital Signs Date Time Temp Pulse Resp B/P (MAP) Pulse Ox O2 Delivery O2 Flow Rate FiO2 12/03/18 16:00 97.0 69 17 98/69 (79) 97 12/03/18 12:00 97.6 100 18 125/88 (100) 96 12/03/18 09:00 Room Air 12/03/18 09:00 89 95 100 12/03/18 08:24 129/90 12/03/18 08:24 100 129/90 12/03/18 08:23 100 129/90 12/03/18 08:00 97.9 100 17 129/90 (103) 97 12/03/18 04:00 97.5 100 18 126/92 (103) 97 12/02/18 21:00 Room Air Intake and Output 12/02/18 12/03/18 19:00 07:00 # Voids 2 Height (Feet): 5 Height (Inches): 6.00 Weight (Pounds): 109 General Appearance: WD/WN EENT: PERRL/EOMI Neck: non-tender Cardiovascular: normal peripheral pulses, normal rate Respiratory/Chest: chest wall non-tender, lungs clear Abdomen: normal bowel sounds, non tender Extremities: normal range of motion 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
[2018-12-03] MEDS: Lisinopril 10mg tab ORAL SCH (18:00)
--- NOTE | 2018-12-03 19:30 | NUR ---
HAND-OFF: Report given to ELLA ABURTO.
--- NOTE | 2018-12-03 19:35 | NUR ---
NURSE NOTES: Received report from ELLA Briones. Per report, patient has no IV access and physician is aware. Patient sleeping quietly. No distress noted, bed in low position, side rails up x2, call light within reach. Will continue to monitor.
[2018-12-03 20:00] VITALS: BP 100/76
--- NOTE | 2018-12-03 20:03 | Neurology Progress Note ---
Interim History Interim History ROS Limited/Unobtainable: Yes Complaints: Pre-syncope Events: no changes Interim History calm, no changes Objective Physical Exam Last Vital Signs Date Time Temp Pulse Resp B/P (MAP) Pulse Ox O2 Delivery O2 Flow Rate FiO2 12/03/18 18:00 98/69 12/03/18 16:00 97.0 69 17 97 12/03/18 09:00 Room Air General: well developed, well nourished Head: normocophalic Neck: no rigidity EENT: benign Neurologic Exam Mental Status: awake, alert, oriented x4, normal cognition, good mathematical skills, normal recent memory, normal remote memory, preserved visuospatial function Speech: normal speech, no dysarthia Language: normal language, no aphasia Cranial Nerve II: fundus normal, visual francis, no papilledema Cranial Nerves III, IV, : PERRLA, EOMI, pupils Cranial Nerve V: normal facial sensations, temporales function normal, masseters function normal, pterygoids function normal Cranial Nerve VII: no facial asymmetry, normal facial expressions Cranial Nerve VIII: normal hearing, no nystagmus Cranial Nerve IX: normal palate elevation, gag response Cranial Nerve X: no voice hoarseness Cranial Nerve XI: SCM symmetric, trapezii function normal Cranial Nerve XII: tongue midline, no tongue atrophy/fasciculations Motor System: normal muscle tone, strength 5/5, no involuntary movement, no muscle wasting Sensory: normal pinprick, normal light touch, normal position sense, normal graphesthesia Coordination: normal finger to nose bilaterally, normal heel to ramsay bilaterally, negative Romberg test Deep Tendon Reflexes: 2+ bicep (L), 2+ bicep (R), 2+ tricep (L), 2+ tricep (R) , 2+ brachioradialis (L), 2+ brachioradialis (R), 2+ knee (L), 2+ knee (R), 2+ ankle (L), 2+ ankle (R) Stance: normal Gait: stable, normal regular, heel + toe gait Impression/Recommendations Problems: (1) Anemia (2) Pre-syncope (3) Hyponatremia (4) Dehydration (5) Syncope (6) Parkinsonism (7) HTN (hypertension) (8) Hypothyroid (9) Atrial fibrillation Status: stable, unchanged Diagnostic Impression Parkinsonism stable - trail of sinemet as outpatient once metabolic abnormalities resolve PT OT Cont NOAC will benefit from rehab placement Serjio Sharpe MD Dec 03, 2018 20:03
[2018-12-03] MEDS: OLANZapine 10mg tab ORAL SCH (20:52)
[2018-12-04 04:00] VITALS: BP 102/58
--- NOTE | 2018-12-04 07:15 | NUR ---
HAND-OFF: Report given to ELLA Garnett.
--- NOTE | 2018-12-04 07:35 | NUR ---
NURSE NOTES: WALKING ROUNDS DONE WITH OUTGOING RN. PATIENT ASLEEP IN BED. BED IN LOWEST AND LOCKED POSITION.CALL LIGHT WITHIN REACH.
[2018-12-04 08:00] VITALS: BP 83/47
--- NOTE | 2018-12-04 09:45 | NUR ---
NURSE NOTES: PATIENT REFUSED ORTHOSTATICS DUE AT 0900. PT STATES " LATER NOT NOW". WILL RE-ATTEMPT.
[2018-12-04 10:00] VITALS: BP 101/53
[2018-12-04] MEDS: dilTIAZem HCl CD 120mg cap ORAL SCH (10:15)
[2018-12-04] MEDS: Lisinopril 20mg tab ORAL SCH (10:15)
[2018-12-04] MEDS: Eliquis 5mg tablet ORAL SCH ×2 (10:15→18:05)
[2018-12-04] MEDS: Depakote ER 500mg tab ORAL SCH (10:16)
--- NOTE | 2018-12-04 11:40 | Diagnostic Imaging Report ---
APPROVED REPORT CPT Code: 82867 Present Symptoms Comments: Chest pain BILATERAL: Imaging reveals a patent deep venous system bilaterally. There is no evidence of thrombus within the femoral, popliteal or tibial segments. The greater saphenous veins are also within normal limits. Doppler indicates normal spontaneous flow within these segments.
[2018-12-04 12:00] VITALS: BP 91/58
--- NOTE | 2018-12-04 12:34 | NUR ---
NURSE NOTES: PATIENT REFUSED TO DO ORTHOSTATICS. WILL NOTIFY .
--- NOTE | 2018-12-04 13:29 | NUR ---
*-* INSURANCE *-* UPDATED CLINICALS FAXED: [facility] [employer]AD RADIOLOGIC TECHNOLOGIST ASSIGNED P- [phone].... F- [phone]...REVIEW/CLINICAL
--- NOTE | 2018-12-04 15:03 | NUR ---
CASE MANAGEMENT:REVIEW 12/03/18 SI: ANEMIA. AFIB W/RVR NON COMPLIANCE 97.8 77 18 91/58 100% ON RA IS: DEPAKOTE 500MG PO QD* ZYPREXA 30MG PO QHS* NEURONTIN 100MG PO QHS* REMERON 30MG PO QHS* LISINOPRIL PO QD* SYNTHROID PO QD* CARDIZEM PO QD* LOPRESSOR PO Q12* ELIQUIS PO BID* ATIVAN PO Q4HRS PRN : MED/SURG STATUS 4 EAST DCP: FROM NIKKI NAYAK PLAN: HAS BEEN ON PSYCH MEDS SINCE 11/12/18 PLACEMENT ISSUE D/T PUBLIC GUARDIAN
--- NOTE | 2018-12-04 15:42 | Hematology/Onc Progress Note ---
Assessment/Plan Assessment/Plan # Anemia of chronic disease due to underlying chronic medical issues, multifactorial --> Anemia workup has been reviewed. Ferritin 83, TIBC 242 --> No evidence of hemolysis is noted, peripheral smear has been reviewed. --> Hgb goal >7. Transfuse prn. --> Epogen or iron at this time is not particularly indicated --> Medications have been reviewed --> hgb trend 14.1-->12.5--> 12.3-->11-->11.2-->10 # Thrombocytopenia - potential causes multifactorial, evaluate liver and viral etiologies to begin, also could be related to underlying medications patient has received. --> Hep panel and HIV on PRIOR admission was negative --> US abd negative for cirrhosis and hsm --> Peripheral smear ordered to evaluate for blasts/schistocytes, none noted --> abx and other meds have been reviewed (one contributor could be depakote) --> ok for ppx if plt >50k w/ either heparin or lovenox --> Transfuse if Plt < 20k and fever, or if Plt < 10k without fever --> Plt trend 118-->169k-->187k--> 102K->133k-->154k-->182k # Atelectasis, optimize pulmonary hygiene/mobilize as tolerated --> on cxr appears stable --> per pulm recs # Paroxysmal AFib, per cardiology recs--> on noac --> on eliquis # Hypertension --> controlled, sbp goal < 140 --> per cards # Hypothyroidism. --> synthroid po # Lactic acidosis, resolved # MACARENA, resolved # Placement pending --> rehab, and pt/ot The timing of this note does not necessarily reflect the time of the patient was seen. Greatly appreciate consultation! Subjective Hematologic/Lymphatic: Reports: anemia Allergies: Coded Allergies: RISPERIDONE (Unverified Allergy, Unknown, 07/04/18) ZIPRASIDONE (Verified Allergy, Unknown, 06/30/18) All Systems: reviewed and negative except above Subjective 11/06: Pt resting in bed. No acute distress. DC planning. 11/08: Pt asleep in bed. No acute events. 11/10: Pt stable, no signs of acute distress or SOB. Venous duplex negative. 11/11: Pt resting in bed. Afebrile, no sob. MRI brain pending. 11/12: Pt in bed, sleeping. No respiratory distress noted. DC planning. 11/13: Pt awake and alert, refused morning meds. No signs of SOB or pain observed. Plt count significantly improved overnight. 11/15: Pt denies pain, no complaints of dyspnea 11/17: Pt resting in bed no chest pain or dyspnea, no other complaints 11/18: unable to place picc given do not have consent 11/20: no acute events reported. 11/21: pt refused am labs as well as am meds. h/h stable from prior labs. 11/22: pt no acute distress. Afebrile, VS reviewed. 11/23: no events reported, no f/c noted 11/24: refusing to participate in exam, labs have been reviewed 11/25: eating ensure this am, discharge planning pending, dw CM 11/26: on noac, continues, no bleeding, hgb is 11.2 11/27: refusing labs this am, discussed with him importance 11/28: resting comfortably, no acute events, no bleeding reported, no night sweats 11/29: no events, no bleeding reported, no night sweats 11/30: no events, no bleeding, no chills, no major night sweats 12/01: getting rehab, pt/ot as needed, no f/c 12/02: walking around the priest with a FWW, says feeling better 12/03: given ativan overnight, feeling better 12/04: awake and alert, no acute events., placement pending Objective Objective Current Medications Medications (Trade) Dose Ordered Sig/Eduardo Route PRN Reason Start Time Stop Time Status Last Admin Dose Admin Acetaminophen (Tylenol) 650 mg Q4H PRN ORAL Mild Pain/Temp > 100.5 12/02/18 01:00 01/01/19 00:59 12/02/18 08:40 Apixaban (Eliquis) 5 mg BID ORAL 11/07/18 18:00 12/05/18 08:59 12/04/18 10:15 Diltiazem HCl (Cardizem CD) 120 mg DAILY ORAL 11/21/18 10:50 12/21/18 10:49 12/04/18 10:15 Divalproex Sodium (Depakote ER) 500 mg DAILY ORAL 11/19/18 09:00 12/12/18 08:59 12/04/18 10:16 Gabapentin (Neurontin) 100 mg BEDTIME ORAL 11/18/18 21:00 12/18/18 20:59 12/03/18 20:45 Hydralazine HCl (Apresoline) 50 mg QIDPRN PRN ORAL HTN SBP >155 11/07/18 19:30 12/07/18 19:29 11/09/18 16:23 Levothyroxine Sodium (Synthroid) 50 mcg DAILY@0630 ORAL 11/13/18 06:30 12/13/18 06:29 12/04/18 06:41 Lisinopril (Prinivil) 20 mg DAILY ORAL 11/22/18 09:00 12/22/18 08:59 12/04/18 10:15 Lisinopril (Zestril) 10 mg QPM@1800 ORAL 11/15/18 18:00 12/15/18 17:59 11/29/18 19:04 Lorazepam (Ativan) 1 mg Q4H PRN ORAL For Anxiety 12/02/18 14:00 12/09/18 13:59 12/02/18 17:57 Metoprolol Tartrate (Lopressor) 100 mg Q12HR ORAL 11/21/18 21:00 12/05/18 18:59 12/04/18 10:15 Mirtazapine (Remeron) 30 mg BEDTIME ORAL 11/12/18 21:00 12/12/18 20:59 12/03/18 20:46 Olanzapine (ZyPREXA) 30 mg BEDTIME ORAL 11/18/18 21:00 12/12/18 08:59 12/03/18 20:52 Last 24 Hour Vital Signs Date Time Temp Pulse Resp B/P (MAP) Pulse Ox O2 Delivery O2 Flow Rate FiO2 12/04/18 12:00 97.8 77 18 91/58 (69) 100 12/04/18 10:15 101/53 12/04/18 10:15 71 101/53 12/04/18 10:15 71 101/53 12/04/18 10:00 71 20 101/53 (69) 96 12/04/18 09:00 Room Air 12/04/18 08:00 98.0 73 18 83/47 (59) 100 12/04/18 04:00 97.4 63 16 102/58 (73) 97 12/03/18 21:00 Room Air 12/03/18 20:46 70 100/76 12/03/18 20:00 97.4 70 18 100/76 (84) 94 12/03/18 18:00 98/69 12/03/18 16:00 97.0 69 17 98/69 (79) 97 12/03/18 12:00 97.6 100 18 125/88 (100) 96 12/03/18 09:00 Room Air 12/03/18 09:00 89 95 100 12/03/18 08:24 129/90 12/03/18 08:24 100 129/90 12/03/18 08:23 100 129/90 12/03/18 08:00 97.9 100 17 129/90 (103) 97 12/03/18 04:00 97.5 100 18 126/92 (103) 97 12/02/18 21:00 Room Air Intake and Output 12/03/18 12/04/18 19:00 07:00 # Voids 3 3 Height (Feet): 5 Height (Inches): 6.00 Weight (Pounds): 109 Objective PHYSICAL EXAMINATION: VITAL SIGNS: Have been reviewed. HEENT: PERRLA. NECK: Supple. No lymphadenopathy. CHEST: Clear to auscultation. CARDIOVASCULAR: Regular rate and rhythm. No murmurs or extra sounds. GASTROINTESTINAL: Soft, nontender, and nondistended. No organomegaly. EXTREMITIES: No edema. Moves all four extremities. NEUROLOGIC: Sensory intact to light touch. Reflexes are equal on both sides. Bennie Goss MD Dec 04, 2018 15:42
--- NOTE | 2018-12-04 15:45 | NUR ---
Social Service Note Public Guardian Fabby requested for board and care referral to be faxed to Marissa at [phone] (a). WENDY followed up with Fabby regarding acceptance, no return call at this time.
--- NOTE | 2018-12-04 17:09 | General Progress Note ---
Assessment/Plan Status: stable, unchanged Assessment/Plan: Assessment/Plan Status: stable, unchanged Assessment/Plan: 63 y/o man with hx of paroxysmal atrial fibrillation, presented to the hospital with pre-syncope, found to have rapid atrial fibrillation. #Paroxysmal Atrial Fibrillation #Atrial fibrillation with RVR - Cont beta zack and Diltiazem for rate control - holding parameters. - Cont NOAC.. - echo did not show any remarkable changes - Apprec cardiology recs # Orthostatic hypotension - Serial Orthostatic vital signs - Monitor OFF IVF and follow up. #Anemia due to chronic illness #Thrombocytopenia - Hgb and platelet count appeared to be at baseline, seen by Hematology, no new changes recommended. #unstable gait -continue PT ( patient refused treatment 11/20 and not seen since then by PT ) - PATIENT WILL NEED TO BE WITHOUT FWW in order to return to his [facility]. Recommend DC to assisted living facility at [place] per PT final report. Otherwise, will need new placement. biofuels manager follow up is needed. SW note for conservator reviewed. #Behavorial disorder -psych meds restarted -psychiatry consulted # Disposition Difficult placement. Per machine adjuster leader case trim no insurance available. [facility] Need to continue efforts by CM and SW to place. WENDY spoke with Daily Sequeira [phone] who states Veronica spoke with SSI and patient' s SSI will be reinstated December 17. WENDY inquired about placement as it is 13 days until December 17. Daily indicted she will contact various board and cares but could not guarantee she would locate placement due to patient currently not having income. WENDY updated CM. Will continue to follow up. Medically stable for discharge when placement is approved. CM notes reviewed and public guardian response pending. Subjective Allergies: Coded Allergies: RISPERIDONE (Unverified Allergy, Unknown, 07/04/18) ZIPRASIDONE (Verified Allergy, Unknown, 06/30/18) All Systems: reviewed and negative except above Objective Last 24 Hour Vital Signs Date Time Temp Pulse Resp B/P (MAP) Pulse Ox O2 Delivery O2 Flow Rate FiO2 12/04/18 12:00 97.8 77 18 91/58 (69) 100 12/04/18 10:15 101/53 12/04/18 10:15 71 101/53 12/04/18 10:15 71 101/53 12/04/18 10:00 71 20 101/53 (69) 96 7/19/19 09:00 Room Air 12/04/18 08:00 98.0 73 18 83/47 (59) 100 12/04/18 04:00 97.4 63 16 102/58 (73) 97 12/03/18 21:00 Room Air 12/03/18 20:46 70 100/76 12/03/18 20:00 97.4 70 18 100/76 (84) 94 12/03/18 18:00 98/69 Intake and Output 12/03/18 12/04/18 19:00 07:00 # Voids 3 3 Height (Feet): 5 Height (Inches): 6.00 Weight (Pounds): 109 General Appearance: WD/WN EENT: PERRL/EOMI Cardiovascular: normal peripheral pulses, normal rate Respiratory/Chest: chest wall non-tender, lungs clear Abdomen: normal bowel sounds Edema: trace edema Neurologic: hand sign writer II-XII grossly normal Galo Wallis MD Dec 04, 2018 17:09
--- NOTE | 2018-12-04 17:43 | NUR ---
NURSE NOTES: MD HERE TO SEE PATIENT AWARE OF PATIENT REFUSING ORTHOSTATICS TODAY. PATIENT BORA DIZZINESS WHEN SITTING AND/OR AMBULATING. OTHERWISE, PATIENT HAS BEEN COOPERATIVE WITH MEDICATION ADMINISTRATION AND CALL LIGHT USAGE.
[2018-12-04] MEDS: Lisinopril 10mg tab ORAL SCH (18:00)
--- NOTE | 2018-12-04 19:20 | NUR ---
HAND-OFF: Report given to ADELA GARCIA LVN.
--- NOTE | 2018-12-04 19:28 | Neurology Progress Note ---
Interim History Interim History ROS Limited/Unobtainable: Yes Complaints: Pre-syncope Events: no changes Interim History pending dispo Objective Physical Exam Last Vital Signs Date Time Temp Pulse Resp B/P (MAP) Pulse Ox O2 Delivery O2 Flow Rate FiO2 12/04/18 18:00 91/58 12/04/18 12:00 97.8 77 18 100 12/04/18 09:00 Room Air General: well developed, well nourished Head: normocophalic Neck: no rigidity EENT: benign Neurologic Exam Mental Status: awake, alert, oriented x4, normal cognition, good mathematical skills, normal recent memory, normal remote memory, preserved visuospatial function Speech: normal speech, no dysarthia Language: normal language, no aphasia Cranial Nerve II: fundus normal, visual francis, no papilledema Cranial Nerves III, IV, : PERRLA, EOMI, pupils Cranial Nerve V: normal facial sensations, temporales function normal, masseters function normal, pterygoids function normal Cranial Nerve VII: no facial asymmetry, normal facial expressions Cranial Nerve VIII: normal hearing, no nystagmus Cranial Nerve IX: normal palate elevation, gag response Cranial Nerve X: no voice hoarseness Cranial Nerve XI: SCM symmetric, trapezii function normal Cranial Nerve XII: tongue midline, no tongue atrophy/fasciculations Motor System: normal muscle tone, strength 5/5, no involuntary movement, no muscle wasting Sensory: normal pinprick, normal light touch, normal position sense, normal graphesthesia Coordination: normal finger to nose bilaterally, normal heel to ramsay bilaterally, negative Romberg test Deep Tendon Reflexes: 2+ bicep (L), 2+ bicep (R), 2+ tricep (L), 2+ tricep (R) , 2+ brachioradialis (L), 2+ brachioradialis (R), 2+ knee (L), 2+ knee (R), 2+ ankle (L), 2+ ankle (R) Stance: normal Gait: stable, normal regular, heel + toe gait Impression/Recommendations Problems: (1) Anemia (2) Pre-syncope (3) Hyponatremia (4) Dehydration (5) Syncope (6) Parkinsonism (7) HTN (hypertension) (8) Hypothyroid (9) Atrial fibrillation Status: stable, unchanged Diagnostic Impression Parkinsonism stable - trail of sinemet as outpatient once metabolic abnormalities resolve PT OT Cont NOAC will benefit from rehab placement Serjio Sharpe MD Dec 04, 2018 19:28
--- NOTE | 2018-12-04 19:30 | NUR ---
NURSE NOTES Patient received from Mariola Coles Patient in bed A/AOX 3 to4 forgetful. Patient denies any pain at this time . no s/s of distress noted . Patient refused orthostatic blood pressure and stated " Im ok" Explained to patient the risk and benefits . Patient still refusing. but able to take lying down position. vital sign Safety/ fall precaution call light within reach , bed in low position Liana LEHMAN notified and aware. .
[2018-12-04 20:00] VITALS: BP 90/58
--- NOTE | 2018-12-04 21:00 | NUR ---
NURSE NOTES:Patient vital sign T 97.0 P 67/ min. R 18/MIN. low B/P 90/58 mmhg SPO2 100% Lopressor 100mg po 1tab on hold . Liana LEHMAN . Patient Asymptomatic. Will continue to monitor .
[2018-12-04] MEDS: OLANZapine 10mg tab ORAL SCH (21:34)
[2018-12-05] VITALS: BP 91/58
[2018-12-05 04:00] VITALS: BP 92/67
--- NOTE | 2018-12-05 07:31 | NUR ---
NURSE NOTES: UP AND ABOUT. NO C/O PAIN. IN NO DISTRESS.
--- NOTE | 2018-12-05 07:31 | NUR ---
HAND-OFF: Report given to JATINDER Coles
[2018-12-05 08:00] VITALS: BP 95/60
[2018-12-05] MEDS: Lisinopril 20mg tab ORAL SCH (08:47)
[2018-12-05] MEDS: dilTIAZem HCl CD 120mg cap ORAL SCH (08:49)
[2018-12-05] MEDS: Depakote ER 500mg tab ORAL SCH (08:50)
--- NOTE | 2018-12-05 10:34 | NUR ---
RD ASSESSMENT & RECOMMENDATIONS SEE CARE ACTIVITY FOR COMPLETE ASSESSMENT DAILY ESTIMATED NEEDS: Needs based on cardiac, possible wt loss/ 49kg 30-35 kcals/kg 9343-7062 total kcals 1-1.5 g protein/kg 49-74 g total protein 25-30 mL/kg 0803-0117 total fluid mLs NUTRITION DIAGNOSIS: Increased kcal/prot intake needs R/T wt loss as evidenced by pt w/ possible significant wt loss of 23lbs/17.5% in 4 months, currently w/ variable meal intake CURRENT DIET:CARDIAC, mech soft chopped + Ensure TID (2 per meal) PO DIET RECOMMENDATIONS: LIBERAL/ REGULAR diet (hypotensive, underweight, poor acceptance of meals) ADDITIONAL RECOMMENDATIONS: * Calibrated bedscale wt or standing wt of accurate CBW * Weekly wt monitoring given possible h/o wt loss * Ensure Enlive 4-5x daily (350kcal/20g prot per bottle) * Updated CBC and BMP as able (last BUN elev) -> encourage fluid intake or IVF w/ IV access * Vit D 1000IU daily (low Vit D25=29) * Encourage intake of meal trays- pt mostly drinking Ensure and not meals
--- NOTE | 2018-12-05 11:49 | General Progress Note ---
Assessment/Plan Status: stable, unchanged Assessment/Plan: Assessment/Plan Status: stable, unchanged Assessment/Plan: 63 y/o man with hx of paroxysmal atrial fibrillation, presented to the hospital with pre-syncope, found to have rapid atrial fibrillation. #Paroxysmal Atrial Fibrillation #Atrial fibrillation with RVR - Cont beta zack and Diltiazem for rate control - holding parameters. - Cont NOAC.. - echo did not show any remarkable changes - Apprec cardiology recs # Orthostatic hypotension - Serial Orthostatic vital signs - Monitor OFF IVF and follow up. #Anemia due to chronic illness #Thrombocytopenia - Hgb and platelet count appeared to be at baseline, seen by Hematology, no new changes recommended. #unstable gait -continue PT ( patient refused treatment 11/20 and not seen since then by PT ) - PATIENT WILL NEED TO BE WITHOUT FWW in order to return to his [facility]. Recommend DC to assisted living facility at [place] per PT final report. Otherwise, will need new placement. numerical analysis group manager follow up is needed. SW note for conservator reviewed. #Behavorial disorder -psych meds restarted -psychiatry consulted # Disposition Difficult placement. Per top case assembler no insurance available. [facility]. Need to continue efforts by CM and SW to place. WENDY spoke with Daily Sequeira [phone] who states Veronica spoke with SSI and patient' s SSI will be reinstated December 17. WENDY inquired about placement as it is 13 days until December 17. Daily indicted she will contact various board and cares but could not guarantee she would locate placement due to patient currently not having income. WENDY updated CM. Will continue to follow up. Medically stable for discharge when placement is approved. CM notes reviewed and public guardian response update. Subjective ROS Limited/Unobtainable: Yes Allergies: Coded Allergies: RISPERIDONE (Unverified Allergy, Unknown, 07/04/18) ZIPRASIDONE (Verified Allergy, Unknown, 06/30/18) All Systems: reviewed and negative except above Objective Last 24 Hour Vital Signs Date Time Temp Pulse Resp B/P (MAP) Pulse Ox O2 Delivery O2 Flow Rate FiO2 12/05/18 09:15 63 12/05/18 08:49 63 95/60 12/05/18 08:47 95/60 12/05/18 08:47 63 95/60 12/05/18 08:13 Room Air 12/05/18 08:00 97.7 63 17 95/60 (72) 90 12/05/18 04:00 97.0 70 18 92/67 (75) 98 12/05/18 00:00 97.3 68 18 91/58 (69) 100 12/04/18 21:00 Room Air 12/04/18 21:00 67 90/58 12/04/18 20:00 97.0 67 18 90/58 (69) 100 12/04/18 18:00 91/58 12/04/18 12:00 97.8 77 18 91/58 (69) 100 Intake and Output 12/04/18 12/05/18 19:00 07:00 Intake Total 1590 ml Balance 1590 ml Intake Oral 1590 ml # Voids 1 6 # Bowel Movements 1 Height (Feet): 5 Height (Inches): 6.00 Weight (Pounds): 109 General Appearance: WD/WN EENT: PERRL/EOMI Neck: non-tender Cardiovascular: normal rate Respiratory/Chest: chest wall non-tender Edema: trace edema Neurologic: art objects supervisor II-XII grossly normal Galo Wallis MD Dec 05, 2018 11:49
--- NOTE | 2018-12-05 12:23 | Hematology/Onc Progress Note ---
Assessment/Plan Assessment/Plan # Anemia of chronic disease due to underlying chronic medical issues, multifactorial --> Anemia workup has been reviewed. Ferritin 83, TIBC 242 --> No evidence of hemolysis is noted, peripheral smear has been reviewed. --> Hgb goal >7. Transfuse prn. --> Epogen or iron at this time is not particularly indicated --> Medications have been reviewed --> hgb trend 14.1-->12.5--> 12.3-->11-->11.2-->10 # Thrombocytopenia - potential causes multifactorial, evaluate liver and viral etiologies to begin, also could be related to underlying medications patient has received. --> Hep panel and HIV on PRIOR admission was negative --> US abd negative for cirrhosis and hsm --> Peripheral smear ordered to evaluate for blasts/schistocytes, none noted --> abx and other meds have been reviewed (one contributor could be depakote) --> ok for ppx if plt >50k w/ either heparin or lovenox --> Transfuse if Plt < 20k and fever, or if Plt < 10k without fever --> Plt trend 118-->169k-->187k--> 102K->133k-->154k-->182k # Atelectasis, optimize pulmonary hygiene/mobilize as tolerated --> on cxr appears stable --> per pulm recs # Paroxysmal AFib, per cardiology recs--> on noac --> on eliquis # Hypertension --> controlled, sbp goal < 140 --> per cards # Hypothyroidism. --> synthroid po # Lactic acidosis, resolved # MACARENA, resolved # Placement pending --> rehab, and pt/ot The timing of this note does not necessarily reflect the time of the patient was seen. Greatly appreciate consultation! Subjective Allergies: Coded Allergies: RISPERIDONE (Unverified Allergy, Unknown, 07/04/18) ZIPRASIDONE (Verified Allergy, Unknown, 06/30/18) All Systems: reviewed and negative except above Subjective 11/06: Pt resting in bed. No acute distress. DC planning. 11/08: Pt asleep in bed. No acute events. 11/10: Pt stable, no signs of acute distress or SOB. Venous duplex negative. 11/11: Pt resting in bed. Afebrile, no sob. MRI brain pending. 11/12: Pt in bed, sleeping. No respiratory distress noted. DC planning. 11/13: Pt awake and alert, refused morning meds. No signs of SOB or pain observed. Plt count significantly improved overnight. 11/15: Pt denies pain, no complaints of dyspnea 11/17: Pt resting in bed no chest pain or dyspnea, no other complaints 11/18: unable to place picc given do not have consent 11/20: no acute events reported. 11/21: pt refused am labs as well as am meds. h/h stable from prior labs. 11/22: pt no acute distress. Afebrile, VS reviewed. 11/23: no events reported, no f/c noted 11/24: refusing to participate in exam, labs have been reviewed 11/25: eating ensure this am, discharge planning pending, dw CM 11/26: on noac, continues, no bleeding, hgb is 11.2 11/27: refusing labs this am, discussed with him importance 11/28: resting comfortably, no acute events, no bleeding reported, no night sweats 11/29: no events, no bleeding reported, no night sweats 11/30: no events, no bleeding, no chills, no major night sweats 12/01: getting rehab, pt/ot as needed, no f/c 12/02: walking around the priest with a FWW, says feeling better 12/03: given ativan overnight, feeling better 12/04: awake and alert, no acute events, placement pending 12/05: awake and alert, resting in bed, no acute events. Objective Objective Current Medications Medications (Trade) Dose Ordered Sig/Eduardo Route PRN Reason Start Time Stop Time Status Last Admin Dose Admin Acetaminophen (Tylenol) 650 mg Q4H PRN ORAL Mild Pain/Temp > 100.5 12/02/18 01:00 01/01/19 00:59 12/02/18 08:40 Diltiazem HCl (Cardizem CD) 120 mg DAILY ORAL 11/21/18 10:50 12/21/18 10:49 12/05/18 08:49 Divalproex Sodium (Depakote ER) 500 mg DAILY ORAL 11/19/18 09:00 12/12/18 08:59 12/05/18 08:50 Gabapentin (Neurontin) 100 mg BEDTIME ORAL 11/18/18 21:00 12/18/18 20:59 12/04/18 21:34 Hydralazine HCl (Apresoline) 50 mg QIDPRN PRN ORAL HTN SBP >155 11/07/18 19:30 12/07/18 19:29 11/09/18 16:23 Levothyroxine Sodium (Synthroid) 50 mcg DAILY@0630 ORAL 11/13/18 06:30 12/13/18 06:29 12/05/18 07:09 Lisinopril (Prinivil) 20 mg DAILY ORAL 11/22/18 09:00 12/22/18 08:59 12/04/18 10:15 Lisinopril (Zestril) 10 mg QPM@1800 ORAL 11/15/18 18:00 12/15/18 17:59 11/29/18 19:04 Lorazepam (Ativan) 1 mg Q4H PRN ORAL For Anxiety 12/02/18 14:00 12/09/18 13:59 12/02/18 17:57 Metoprolol Tartrate (Lopressor) 100 mg Q12HR ORAL 11/21/18 21:00 12/05/18 18:59 12/04/18 10:15 Mirtazapine (Remeron) 30 mg BEDTIME ORAL 11/12/18 21:00 12/12/18 20:59 12/04/18 21:34 Olanzapine (ZyPREXA) 30 mg BEDTIME ORAL 11/18/18 21:00 12/12/18 08:59 12/04/18 21:34 Last 24 Hour Vital Signs Date Time Temp Pulse Resp B/P (MAP) Pulse Ox O2 Delivery O2 Flow Rate FiO2 12/05/18 09:15 63 12/05/18 08:49 63 95/60 12/05/18 08:47 95/60 12/05/18 08:47 63 95/60 12/05/18 08:13 Room Air 12/05/18 08:00 97.7 63 17 95/60 (72) 90 12/05/18 04:00 97.0 70 18 92/67 (75) 98 12/05/18 00:00 97.3 68 18 91/58 (69) 100 12/04/18 21:00 Room Air 12/04/18 21:00 67 90/58 12/04/18 20:00 97.0 67 18 90/58 (69) 100 12/04/18 18:00 91/58 12/04/18 12:00 97.8 77 18 91/58 (69) 100 12/04/18 10:15 101/53 12/04/18 10:15 71 101/53 12/04/18 10:15 71 101/53 12/04/18 10:00 71 20 101/53 (69) 96 12/04/18 09:00 Room Air 12/04/18 08:00 98.0 73 18 83/47 (59) 100 12/04/18 04:00 97.4 63 16 102/58 (73) 97 12/03/18 21:00 Room Air 12/03/18 20:46 70 100/76 12/03/18 20:00 97.4 70 18 100/76 (84) 94 12/03/18 18:00 98/69 12/03/18 16:00 97.0 69 17 98/69 (79) 97 Intake and Output 12/04/18 12/05/18 19:00 07:00 Intake Total 1590 ml Balance 1590 ml Intake Oral 1590 ml # Voids 1 6 # Bowel Movements 1 Height (Feet): 5 Height (Inches): 6.00 Weight (Pounds): 109 Objective PHYSICAL EXAMINATION: VITAL SIGNS: Have been reviewed. HEENT: PERRLA. NECK: Supple. No lymphadenopathy. CHEST: Clear to auscultation. CARDIOVASCULAR: Regular rate and rhythm. No murmurs or extra sounds. GASTROINTESTINAL: Soft, nontender, and nondistended. No organomegaly. EXTREMITIES: No edema. Moves all four extremities. NEUROLOGIC: Sensory intact to light touch. Reflexes are equal on both sides. Bennie Goss MD Dec 05, 2018 12:23
[2018-12-05] MEDS: Eliquis 5mg tablet ORAL SCH ×2 (14:52→23:00)
[2018-12-05 17:25] VITALS: BP 89/55
[2018-12-05] MEDS: Lisinopril 10mg tab ORAL SCH (17:26)
--- NOTE | 2018-12-05 19:00 | NUR ---
NURSE NOTES: NO ACUTE CHANGES. CONDITION STABLE.
--- NOTE | 2018-12-05 19:06 | NUR ---
HAND-OFF: Report given to Jacqueline ANTONIO RN.
--- NOTE | 2018-12-05 19:28 | NUR ---
NURSE NOTES: Received report & pt from ELLA Magallon. Pt lying in bed, a&ox2-3 with periods of forgetfulness, in room air, asleep but easily arousable. No s/s of acute distress & no c/o pain at this time. No IV access noted & MD aware per report. Bed in lowest position, call light within reach. Will continue to monitor.
[2018-12-05 20:00] VITALS: BP 96/56
[2018-12-05] MEDS: OLANZapine 10mg tab ORAL SCH (20:28)
--- NOTE | 2018-12-05 22:46 | Neurology Progress Note ---
Interim History Interim History ROS Limited/Unobtainable: Yes Complaints: Pre-syncope Events: no changes Interim History ambulating Objective Physical Exam Last Vital Signs Date Time Temp Pulse Resp B/P (MAP) Pulse Ox O2 Delivery O2 Flow Rate FiO2 12/05/18 21:00 Room Air 12/05/18 20:00 98.7 72 18 96/56 (69) 97 General: well developed, well nourished Head: normocophalic Neck: no rigidity EENT: benign Neurologic Exam Mental Status: awake, alert, oriented x4, normal cognition, good mathematical skills, normal recent memory, normal remote memory, preserved visuospatial function Speech: normal speech, no dysarthia Language: normal language, no aphasia Cranial Nerve II: fundus normal, visual francis, no papilledema Cranial Nerves III, IV, : PERRLA, EOMI, pupils Cranial Nerve V: normal facial sensations, temporales function normal, masseters function normal, pterygoids function normal Cranial Nerve VII: no facial asymmetry, normal facial expressions Cranial Nerve VIII: normal hearing, no nystagmus Cranial Nerve IX: normal palate elevation, gag response Cranial Nerve X: no voice hoarseness Cranial Nerve XI: SCM symmetric, trapezii function normal Cranial Nerve XII: tongue midline, no tongue atrophy/fasciculations Motor System: normal muscle tone, strength 5/5, no involuntary movement, no muscle wasting Sensory: normal pinprick, normal light touch, normal position sense, normal graphesthesia Coordination: normal finger to nose bilaterally, normal heel to ramsay bilaterally, negative Romberg test Deep Tendon Reflexes: 2+ bicep (L), 2+ bicep (R), 2+ tricep (L), 2+ tricep (R) , 2+ brachioradialis (L), 2+ brachioradialis (R), 2+ knee (L), 2+ knee (R), 2+ ankle (L), 2+ ankle (R) Stance: normal Gait: stable, normal regular, heel + toe gait Impression/Recommendations Problems: (1) Anemia (2) Pre-syncope (3) Hyponatremia (4) Dehydration (5) Syncope (6) Parkinsonism (7) HTN (hypertension) (8) Hypothyroid (9) Atrial fibrillation Status: stable, unchanged Diagnostic Impression Parkinsonism stable - trail of sinemet as outpatient once metabolic abnormalities resolve PT OT Cont NOAC will benefit from rehab placement Serjio Sharpe MD Dec 05, 2018 22:45
[2018-12-06] MEDS: Eliquis 5mg tablet ORAL SCH ×3 (00:21→17:11)
--- NOTE | 2018-12-06 07:21 | NUR ---
NURSE NOTES: Reoriented pt; Pt tried to go out of the hospital stating, "They're keeping me locked in!!!". Pt started screaming & cussing out to people. Security escorted pt back to room with RN. Now pt is calm.
--- NOTE | 2018-12-06 07:28 | NUR ---
HAND-OFF: Report given to ELLA Banerjee. Pt in stable condition. Rounds done.
--- NOTE | 2018-12-06 07:30 | NUR ---
NURSE NOTES:BEDSIDE ROUNDS WITH TONG RN,PT ANXIOUS,CLAIMS"WHY ARE YOU KEEPING ME HERE FOR THAT LONG,I'VE BEEN HERE MORE THAN 3WEEKS ALREADY?"EXPLAINED THAT CASE [facility]. STILL LOOKING FOR PLACEMENT.
[2018-12-06 07:48] VITALS: BP 112/72
[2018-12-06] MEDS: Depakote ER 500mg tab ORAL SCH (08:44)
[2018-12-06] MEDS: Lisinopril 20mg tab ORAL SCH (08:46)
[2018-12-06] MEDS: dilTIAZem HCl CD 120mg cap ORAL SCH (08:48)
--- NOTE | 2018-12-06 14:02 | Hematology/Onc Progress Note ---
Assessment/Plan Assessment/Plan # Anemia of chronic disease due to underlying chronic medical issues, multifactorial --> Anemia workup has been reviewed. Ferritin 83, TIBC 242 --> No evidence of hemolysis is noted, peripheral smear has been reviewed. --> Hgb goal >7. Transfuse prn. --> Epogen or iron at this time is not particularly indicated --> Medications have been reviewed --> hgb trend 14.1-->12.5--> 12.3-->11-->11.2-->10 # Thrombocytopenia - potential causes multifactorial, evaluate liver and viral etiologies to begin, also could be related to underlying medications patient has received. --> Hep panel and HIV on PRIOR admission was negative --> US abd negative for cirrhosis and hsm --> Peripheral smear ordered to evaluate for blasts/schistocytes, none noted --> abx and other meds have been reviewed (one contributor could be depakote) --> ok for ppx if plt >50k w/ either heparin or lovenox --> Transfuse if Plt < 20k and fever, or if Plt < 10k without fever --> Plt trend 118-->169k-->187k--> 102K->133k-->154k-->182k # Atelectasis, optimize pulmonary hygiene/mobilize as tolerated --> on cxr appears stable --> per pulm recs # Paroxysmal AFib, per cardiology recs--> on noac --> on eliquis # Hypertension --> controlled, sbp goal < 140 --> per cards # Hypothyroidism. --> synthroid po # Lactic acidosis, resolved # MACARENA, resolved # Placement pending --> rehab, and pt/ot The timing of this note does not necessarily reflect the time of the patient was seen. Greatly appreciate consultation! Subjective Allergies: Coded Allergies: RISPERIDONE (Unverified Allergy, Unknown, 07/04/18) ZIPRASIDONE (Verified Allergy, Unknown, 06/30/18) Subjective 11/06: Pt resting in bed. No acute distress. DC planning. 11/08: Pt asleep in bed. No acute events. 11/10: Pt stable, no signs of acute distress or SOB. Venous duplex negative. 11/11: Pt resting in bed. Afebrile, no sob. MRI brain pending. 11/12: Pt in bed, sleeping. No respiratory distress noted. DC planning. 11/13: Pt awake and alert, refused morning meds. No signs of SOB or pain observed. Plt count significantly improved overnight. 11/15: Pt denies pain, no complaints of dyspnea 11/17: Pt resting in bed no chest pain or dyspnea, no other complaints 11/18: unable to place picc given do not have consent 11/20: no acute events reported. 11/21: pt refused am labs as well as am meds. h/h stable from prior labs. 11/22: pt no acute distress. Afebrile, VS reviewed. 11/23: no events reported, no f/c noted 11/24: refusing to participate in exam, labs have been reviewed 11/25: eating ensure this am, discharge planning pending, dw CM 11/26: on noac, continues, no bleeding, hgb is 11.2 11/27: refusing labs this am, discussed with him importance 11/28: resting comfortably, no acute events, no bleeding reported, no night sweats 11/29: no events, no bleeding reported, no night sweats 11/30: no events, no bleeding, no chills, no major night sweats 12/01: getting rehab, pt/ot as needed, no f/c 12/02: walking around the priest with a FWW, says feeling better 12/03: given ativan overnight, feeling better 12/04: awake and alert, no acute events, placement pending 12/05: awake and alert, resting in bed, no acute events. 12/06: anxious and aggravated, vs stable, placement pending per manager case Objective Objective Current Medications Medications (Trade) Dose Ordered Sig/Eduardo Route PRN Reason Start Time Stop Time Status Last Admin Dose Admin Acetaminophen (Tylenol) 650 mg Q4H PRN ORAL Mild Pain/Temp > 100.5 12/02/18 01:00 01/01/19 00:59 12/06/18 00:22 Apixaban (Eliquis) 5 mg BID ORAL 12/05/18 15:00 01/04/19 14:59 12/06/18 08:44 Diltiazem HCl (Cardizem CD) 120 mg DAILY ORAL 11/21/18 10:50 12/21/18 10:49 12/06/18 08:48 Divalproex Sodium (Depakote ER) 500 mg DAILY ORAL 11/19/18 09:00 12/12/18 08:59 12/06/18 08:44 Gabapentin (Neurontin) 100 mg BEDTIME ORAL 11/18/18 21:00 12/18/18 20:59 12/05/18 20:28 Hydralazine HCl (Apresoline) 50 mg QIDPRN PRN ORAL HTN SBP >155 11/07/18 19:30 12/07/18 19:29 11/09/18 16:23 Levothyroxine Sodium (Synthroid) 50 mcg DAILY@0630 ORAL 11/13/18 06:30 12/13/18 06:29 12/06/18 05:36 Lisinopril (Prinivil) 20 mg DAILY ORAL 11/22/18 09:00 12/22/18 08:59 12/06/18 08:46 Lisinopril (Zestril) 10 mg QPM@1800 ORAL 11/15/18 18:00 12/15/18 17:59 11/29/18 19:04 Lorazepam (Ativan) 1 mg Q4H PRN ORAL For Anxiety 12/02/18 14:00 12/09/18 13:59 12/02/18 17:57 Mirtazapine (Remeron) 30 mg BEDTIME ORAL 11/12/18 21:00 12/12/18 20:59 12/05/18 20:28 Olanzapine (ZyPREXA) 30 mg BEDTIME ORAL 11/18/18 21:00 12/12/18 08:59 12/05/18 20:28 Last 24 Hour Vital Signs Date Time Temp Pulse Resp B/P (MAP) Pulse Ox O2 Delivery O2 Flow Rate FiO2 12/06/18 09:00 95 12/06/18 08:48 95 112/72 12/06/18 08:46 112/72 12/06/18 08:00 Room Air 12/06/18 07:48 97.7 95 18 112/72 (85) 96 12/05/18 21:00 Room Air 12/05/18 20:00 98.7 72 18 96/56 (69) 97 12/05/18 17:26 89/55 12/05/18 17:25 97.9 69 20 89/55 (66) 95 12/05/18 09:15 63 12/05/18 08:49 63 95/60 12/05/18 08:47 95/60 12/05/18 08:47 63 95/60 12/05/18 08:13 Room Air 12/05/18 08:00 97.7 63 17 95/60 (72) 90 12/05/18 04:00 97.0 70 18 92/67 (75) 98 12/05/18 00:00 97.3 68 18 91/58 (69) 100 12/04/18 21:00 Room Air 12/04/18 21:00 67 90/58 12/04/18 20:00 97.0 67 18 90/58 (69) 100 12/04/18 18:00 91/58 Intake and Output 12/05/18 12/06/18 19:00 07:00 Intake Total 950 ml 360 ml Balance 950 ml 360 ml Intake Oral 950 ml 360 ml # Voids 3 Height (Feet): 5 Height (Inches): 6.00 Weight (Pounds): 109 Objective PHYSICAL EXAMINATION: VITAL SIGNS: Have been reviewed. HEENT: PERRLA. NECK: Supple. No lymphadenopathy. CHEST: Clear to auscultation. CARDIOVASCULAR: Regular rate and rhythm. No murmurs or extra sounds. GASTROINTESTINAL: Soft, nontender, and nondistended. No organomegaly. EXTREMITIES: No edema. Moves all four extremities. NEUROLOGIC: Sensory intact to light touch. Reflexes are equal on both sides. Bennie Goss MD Dec 06, 2018 14:02
--- NOTE | 2018-12-06 14:58 | General Progress Note ---
Assessment/Plan Status: stable, unchanged Assessment/Plan: Assessment/Plan Status: stable, unchanged Assessment/Plan: 63 y/o man with hx of paroxysmal atrial fibrillation, presented to the hospital with pre-syncope, found to have rapid atrial fibrillation. #Paroxysmal Atrial Fibrillation #Atrial fibrillation with RVR - Cont beta zack and Diltiazem for rate control - holding parameters. - Cont NOAC.. - echo did not show any remarkable changes - Apprec cardiology recs # Orthostatic hypotension - Serial Orthostatic vital signs - Monitor OFF IVF and follow up. #Anemia due to chronic illness #Thrombocytopenia - Hgb and platelet count appeared to be at baseline, seen by Hematology, no new changes recommended. Labs stable. #unstable gait -continue PT - PATIENT WILL NEED TO BE WITHOUT FWW in order to return to his [facility]. Recommend DC to assisted living facility at [place] per PT final report. Otherwise, will need new placement. district manager primary care sales follow up is needed. WENDY note for conservator reviewed. #Behavorial disorder -psych meds restarted -psychiatry consulted # Disposition Difficult placement. Per catalytic case operator no insurance available. [facility]. Need to continue efforts by CM and SW to place. WENDY spoke with Daily Sequeira [phone] who states Veronica spoke with SSI and patient' s SSI will be reinstated December 17. WENDY inquired about placement as it is 13 days until December 17. Daily indicted she will contact various board and cares but could not guarantee she would locate placement due to patient currently not having income. WENDY updated CM. Will continue to follow up. Medically stable for discharge when placement is approved. CM notes reviewed and public guardian response update. Subjective Allergies: Coded Allergies: RISPERIDONE (Unverified Allergy, Unknown, 07/04/18) ZIPRASIDONE (Verified Allergy, Unknown, 06/30/18) All Systems: reviewed and negative except above Objective Last 24 Hour Vital Signs Date Time Temp Pulse Resp B/P (MAP) Pulse Ox O2 Delivery O2 Flow Rate FiO2 12/06/18 09:00 95 12/06/18 08:48 95 112/72 12/06/18 08:46 112/72 12/06/18 08:00 Room Air 12/06/18 07:48 97.7 95 18 112/72 (85) 96 12/05/18 21:00 Room Air 12/05/18 20:00 98.7 72 18 96/56 (69) 97 12/05/18 17:26 89/55 12/05/18 17:25 97.9 69 20 89/55 (66) 95 Intake and Output 12/05/18 12/06/18 19:00 07:00 Intake Total 950 ml 360 ml Balance 950 ml 360 ml Intake Oral 950 ml 360 ml # Voids 3 Height (Feet): 5 Height (Inches): 6.00 Weight (Pounds): 109 General Appearance: WD/WN EENT: PERRL/EOMI Neck: non-tender Cardiovascular: normal rate, regular rhythm Respiratory/Chest: lungs clear, normal breath sounds Abdomen: non tender, soft Extremities: normal range of motion Neurologic: line construction superintendent II-XII grossly normal, no motor/sensory deficits Galo Wallis MD Dec 06, 2018 14:58
[2018-12-06 16:01] VITALS: BP 118/90
--- NOTE | 2018-12-06 16:15 | NUR ---
NURSE NOTES:PT.WAS LAST SEEN BY BETSEY JARAMILLO.THAT PT.WAS WALKING IN HALLWAY USING WALKER TOWARDS BACK ELEVATOR,PT.LEFT WALKER AT ROOM 317,BUT NO PT.AROUND,SEARCH ALL FLOORS,BASEMENT,CAFETERIA,CHARGE NURSE(NOEMI),SECURITY WAS PAGED.PRIMARY RN.WENT OUTSIDE THE BUILDING AND FOUND PATIENT SITTING IN [facility].PT, WAS AGITATED SAYING,"I CANT AFFORD TO PAY MY HOSPITAL BILLS,EVEN MY SISTER CANT AFFORD"TALKED TO PT AND CALM HIM DOWN AND EXPLAINED THAT THE CASE [facility].ARE WORKING FOR HIS PLACEMENT.PT. AGREED TO GO BACK TO HIS ROOM BY WHEELCHAIR.HE STATED"I DONT KNOW HOW I GOT HERE,BUT I LEFT MY WALKER UPSTAIRS".PT RETURNED TO FLOOR BY WHEELCHAIR ASSISTED BY FITZ JARAMILLO/NOEMI JARAMILLO.PT.STABLE NO C/O PAIN
[2018-12-06] MEDS: Lisinopril 10mg tab ORAL SCH (17:10)
--- NOTE | 2018-12-06 18:00 | NUR ---
NURSE NOTES:SLEEPING,REFUSED TO EAT.NAD
--- NOTE | 2018-12-06 19:45 | NUR ---
HAND-OFF: Report given to SUMMER JARAMILLO.PT STABLE,SLEEPING.
--- NOTE | 2018-12-06 19:45 | NUR ---
NURSE NOTES: Pt lying in bed asleep w/bed in lowest position and call light within reach. Pt A&Ox2 w/moments of confusion. No IV access noted and skin intact. Will continue to monitor.
[2018-12-06 20:00] VITALS: BP 78/44
[2018-12-06] MEDS: OLANZapine 10mg tab ORAL SCH (20:34)
[2018-12-06 21:01] VITALS: BP 98/58
[2018-12-07] VITALS: BP 96/68
[2018-12-07 04:00] VITALS: BP 114/69
--- NOTE | 2018-12-07 07:32 | NUR ---
HAND-OFF: Report given to ELLA White.
[2018-12-07 08:00] VITALS: BP 114/63
[2018-12-07] MEDS: Depakote ER 500mg tab ORAL SCH (09:13)
[2018-12-07] MEDS: Eliquis 5mg tablet ORAL SCH ×2 (09:13→18:03)
[2018-12-07] MEDS: Lisinopril 20mg tab ORAL SCH (09:13)
[2018-12-07] MEDS: dilTIAZem HCl CD 120mg cap ORAL SCH (09:14)
[2018-12-07 12:00] VITALS: BP 106/63
--- NOTE | 2018-12-07 12:20 | Hematology/Onc Progress Note ---
Assessment/Plan Assessment/Plan # Anemia of chronic disease due to underlying chronic medical issues, multifactorial --> Anemia workup has been reviewed. Ferritin 83, TIBC 242 --> No evidence of hemolysis is noted, peripheral smear has been reviewed. --> Hgb goal >7. Transfuse prn. --> Epogen or iron at this time is not particularly indicated --> Medications have been reviewed --> hgb trend 14.1-->12.5--> 12.3-->11-->11.2-->10 # Thrombocytopenia - potential causes multifactorial, evaluate liver and viral etiologies to begin, also could be related to underlying medications patient has received. --> Hep panel and HIV on PRIOR admission was negative --> US abd negative for cirrhosis and hsm --> Peripheral smear ordered to evaluate for blasts/schistocytes, none noted --> abx and other meds have been reviewed (one contributor could be depakote) --> ok for ppx if plt >50k w/ either heparin or lovenox --> Transfuse if Plt < 20k and fever, or if Plt < 10k without fever --> Plt trend 118-->169k-->187k--> 102K->133k-->154k-->182k # FTT with decreased bmi on admission --> began on mirtazapine --> daily weight pending # Atelectasis, optimize pulmonary hygiene/mobilize as tolerated --> on cxr appears stable --> per pulm recs # Paroxysmal AFib, per cardiology recs--> on noac --> on eliquis (OK to continue) # Hypertension --> controlled, sbp goal < 140 --> per cards # Hypothyroidism. --> synthroid po # Lactic acidosis, resolved # MACARENA, resolved # Placement pending --> rehab, and pt/ot The timing of this note does not necessarily reflect the time of the patient was seen. Greatly appreciate consultation! Subjective Constitutional: Denies: no symptoms, chills, fever, malaise, weakness, other Respiratory: Denies: no symptoms, cough, shortness of breath, SOB with excertion, SOB at rest, sputum, wheezing, other Gastrointestinal/Abdominal: Denies: no symptoms, abdomen distended, abdominal pain, black stools, tarry stools, blood in stool, constipated, diarrhea, difficulty swallowing, nausea, poor appetite, poor fluid intake, rectal bleeding , vomiting, other Genitourinary: Denies: no symptoms, burning, discharge, frequency, flank pain, hematuria, incontinence, pain, urgency, other Neurologic/Psychiatric: Denies: no symptoms, anxiety, depressed, emotional problems, headache, numbness, paresthesia, pre-existing deficit, seizure, tingling, tremors, weakness, other Endocrine: Denies: no symptoms, excessive sweating, flushing, intolerance to cold, intolerance to heat, increased hunger, increased thirst, increased urine, unexplained weight gain, unexplained weight loss, other Hematologic/Lymphatic: Denies: no symptoms, anemia, easy bleeding, easy bruising, adenopathy, other Allergies: Coded Allergies: RISPERIDONE (Unverified Allergy, Unknown, 07/04/18) ZIPRASIDONE (Verified Allergy, Unknown, 06/30/18) Subjective 11/06: Pt resting in bed. No acute distress. DC planning. 11/08: Pt asleep in bed. No acute events. 11/10: Pt stable, no signs of acute distress or SOB. Venous duplex negative. 11/11: Pt resting in bed. Afebrile, no sob. MRI brain pending. 11/12: Pt in bed, sleeping. No respiratory distress noted. DC planning. 11/13: Pt awake and alert, refused morning meds. No signs of SOB or pain observed. Plt count significantly improved overnight. 11/15: Pt denies pain, no complaints of dyspnea 11/17: Pt resting in bed no chest pain or dyspnea, no other complaints 11/18: unable to place picc given do not have consent 11/20: no acute events reported. 11/21: pt refused am labs as well as am meds. h/h stable from prior labs. 11/22: pt no acute distress. Afebrile, VS reviewed. 11/23: no events reported, no f/c noted 11/24: refusing to participate in exam, labs have been reviewed 11/25: eating ensure this am, discharge planning pending, dw CM 11/26: on noac, continues, no bleeding, hgb is 11.2 11/27: refusing labs this am, discussed with him importance 11/28: resting comfortably, no acute events, no bleeding reported, no night sweats 11/29: no events, no bleeding reported, no night sweats 11/30: no events, no bleeding, no chills, no major night sweats 12/01: getting rehab, pt/ot as needed, no f/c 12/02: walking around the priest with a FWW, says feeling better 12/03: given ativan overnight, feeling better 12/04: awake and alert, no acute events, placement pending 12/05: awake and alert, resting in bed, no acute events. 12/06: anxious and aggravated, vs stable, placement pending per shoe parts caser 12/07: no events to report, no f/c, no night sweats refusing po, will start on mirtazpine Objective Objective Current Medications Medications (Trade) Dose Ordered Sig/Eduardo Route PRN Reason Start Time Stop Time Status Last Admin Dose Admin Acetaminophen (Tylenol) 650 mg Q4H PRN ORAL Mild Pain/Temp > 100.5 12/02/18 01:00 01/01/19 00:59 12/06/18 00:22 Apixaban (Eliquis) 5 mg BID ORAL 12/05/18 15:00 01/04/19 14:59 12/07/18 09:13 Diltiazem HCl (Cardizem CD) 120 mg DAILY ORAL 11/21/18 10:50 12/21/18 10:49 12/07/18 09:14 Divalproex Sodium (Depakote ER) 500 mg DAILY ORAL 11/19/18 09:00 12/12/18 08:59 12/07/18 09:13 Gabapentin (Neurontin) 100 mg BEDTIME ORAL 11/18/18 21:00 12/18/18 20:59 12/06/18 20:34 Hydralazine HCl (Apresoline) 50 mg QIDPRN PRN ORAL HTN SBP >155 11/07/18 19:30 12/07/18 19:29 11/09/18 16:23 Levothyroxine Sodium (Synthroid) 50 mcg DAILY@0630 ORAL 11/13/18 06:30 12/13/18 06:29 12/07/18 06:19 Lisinopril (Prinivil) 20 mg DAILY ORAL 11/22/18 09:00 12/22/18 08:59 12/07/18 09:13 Lisinopril (Zestril) 10 mg QPM@1800 ORAL 11/15/18 18:00 12/15/18 17:59 12/06/18 17:10 Lorazepam (Ativan) 1 mg Q4H PRN ORAL For Anxiety 12/02/18 14:00 12/09/18 13:59 12/02/18 17:57 Mirtazapine (Remeron) 30 mg BEDTIME ORAL 11/12/18 21:00 12/12/18 20:59 12/06/18 20:34 Olanzapine (ZyPREXA) 30 mg BEDTIME ORAL 11/18/18 21:00 12/12/18 08:59 12/06/18 20:34 Last 24 Hour Vital Signs Date Time Temp Pulse Resp B/P (MAP) Pulse Ox O2 Delivery O2 Flow Rate FiO2 12/07/18 09:14 91 114/63 12/07/18 09:13 114/63 12/07/18 09:00 Room Air 12/07/18 09:00 91 12/07/18 08:00 98.4 91 18 114/63 (80) 97 12/07/18 04:00 97.1 81 18 114/69 (84) 96 12/07/18 00:00 97.3 84 18 96/68 (77) 95 12/06/18 21:01 77 98/58 (71) 12/06/18 21:00 Room Air 12/06/18 20:00 97.5 75 18 78/44 (55) 98 12/06/18 17:10 118/90 12/06/18 16:01 97.2 90 18 118/90 (99) 99 12/06/18 09:00 95 12/06/18 08:48 95 112/72 12/06/18 08:46 112/72 12/06/18 08:00 Room Air 12/06/18 07:48 97.7 95 18 112/72 (85) 96 12/05/18 21:00 Room Air 12/05/18 20:00 98.7 72 18 96/56 (69) 97 12/05/18 17:26 89/55 12/05/18 17:25 97.9 69 20 89/55 (66) 95 Intake and Output 12/06/18 12/07/18 19:00 07:00 Intake Total 600 ml 480 ml Balance 600 ml 480 ml Intake Oral 600 ml 480 ml # Voids 3 1 Height (Feet): 5 Height (Inches): 6.00 Weight (Pounds): 109 Objective PHYSICAL EXAMINATION: VITAL SIGNS: Have been reviewed. HEENT: PERRLA. NECK: Supple. No lymphadenopathy. CHEST: Clear to auscultation. CARDIOVASCULAR: Regular rate and rhythm. No murmurs or extra sounds. GASTROINTESTINAL: Soft, nontender, and nondistended. No organomegaly. EXTREMITIES: No edema. Moves all four extremities. NEUROLOGIC: Sensory intact to light touch. Reflexes are equal on both sides. Bennie Goss MD Dec 07, 2018 12:20
--- NOTE | 2018-12-07 13:16 | General Progress Note ---
Assessment/Plan Status: stable, unchanged Assessment/Plan: 3 y/o man with hx of paroxysmal atrial fibrillation, presented to the hospital with pre-syncope, found to have rapid atrial fibrillation. #Paroxysmal Atrial Fibrillation #Atrial fibrillation with RVR - Cont beta zack and Diltiazem for rate control - holding parameters. - Cont NOAC.. - echo did not show any remarkable changes - Apprec cardiology recs # Orthostatic hypotension - Serial Orthostatic vital signs - Monitor OFF IVF and follow up. #Anemia due to chronic illness #Thrombocytopenia - Hgb and platelet count appeared to be at baseline, seen by Hematology, no new changes recommended. Labs stable. #unstable gait -continue PT - PATIENT WILL NEED TO BE WITHOUT FWW in order to return to his [facility]. Recommend DC to assisted living facility at [place] per PT final report. Otherwise, will need new placement. regional property manager follow up is needed. WENDY note for conservator reviewed. #Behavorial disorder -psych meds restarted -psychiatry consulted # Disposition Difficult placement. Per showcase maker no insurance available. [facility] reported [facility]. Need to continue efforts by CM and SW to place. WENDY spoke with Daily Sequeira [phone] who states Veronica spoke with SSI and patient' s SSI will be reinstated December 17. WENDY inquired about placement as it is 13 days until December 17. Daily indicted she will contact various board and cares but could not guarantee she would locate placement due to patient currently not having income. WENDY updated CM. Will continue to follow up. Medically stable for discharge when placement is approved. CM notes reviewed and public guardian response update. 38 extra minutes spent in chart review including reviewing labs, notes, and imaging. Subjective Date patient seen: Dec 07, 2018 Time patient seen: 10:15 ROS Limited/Unobtainable: No Allergies: Coded Allergies: RISPERIDONE (Unverified Allergy, Unknown, 07/04/18) ZIPRASIDONE (Verified Allergy, Unknown, 06/30/18) All Systems: reviewed and negative except above Subjective denies cp, dizziness, sob, seizures Objective Last 24 Hour Vital Signs Date Time Temp Pulse Resp B/P (MAP) Pulse Ox O2 Delivery O2 Flow Rate FiO2 12/07/18 09:14 91 114/63 12/07/18 09:13 114/63 12/07/18 09:00 Room Air 12/07/18 09:00 91 12/07/18 08:00 98.4 91 18 114/63 (80) 97 12/07/18 04:00 97.1 81 18 114/69 (84) 96 12/07/18 00:00 97.3 84 18 96/68 (77) 95 12/06/18 21:01 77 98/58 (71) 12/06/18 21:00 Room Air 12/06/18 20:00 97.5 75 18 78/44 (55) 98 12/06/18 17:10 118/90 12/06/18 16:01 97.2 90 18 118/90 (99) 99 Intake and Output 12/06/18 12/07/18 19:00 07:00 Intake Total 600 ml 480 ml Balance 600 ml 480 ml Intake Oral 600 ml 480 ml # Voids 3 1 Height (Feet): 5 Height (Inches): 6.00 Weight (Pounds): 109 General Appearance: WD/WN, no apparent distress, alert EENT: PERRL/EOMI, normal ENT inspection Neck: non-tender, normal alignment, supple, normal inspection Cardiovascular: normal rate, regular rhythm, no JVD Respiratory/Chest: lungs clear, normal breath sounds, no respiratory distress, no accessory muscle use Abdomen: non tender, soft, no organomegaly Extremities: normal range of motion, non-tender Edema: no edema noted Arm (L), no edema noted Arm (R), no edema noted Leg (L), no edema noted Leg (R), no edema noted Pedal (L), no edema noted Pedal (R), no edema noted Generalized Neurologic: clam shucking machine tender II-XII grossly normal, oriented x 3, responsive Oriana Jalloh DO Dec 07, 2018 13:16
--- NOTE | 2018-12-07 15:21 | NUR ---
Social Service Note WENDY spoke with PG Daily [phone]. Patient information SW faxed on Friday still pending review at [facility] and [facility]. PG shows no urgency in locating placement for patient until SSI reinstatement in December.
[2018-12-07 16:00] VITALS: BP 106/68
[2018-12-07] MEDS: Lisinopril 10mg tab ORAL SCH (18:03)
--- NOTE | 2018-12-07 19:33 | NUR ---
NURSE NOTES:Patient received from Jeremi Coles patient sitting . A/A/OX3 with episode of confusion . Patient denies any pain at this time . NO s/s of distress noted . no iv access MD aware.safety/ fall precautions . Call light within reach . Bed in low position at all times . will continue to monitor
--- NOTE | 2018-12-07 19:33 | NUR ---
HAND-OFF: Report given to Cathi LABORER SHIPYARD, pt in stable condition.
[2018-12-07 20:00] VITALS: BP 100/60
[2018-12-07] MEDS: OLANZapine 10mg tab ORAL SCH (21:44)
[2018-12-08] VITALS (7 sets, daily range): BP systolic 93–140; BP diastolic 56–87
--- NOTE | 2018-12-08 07:00 | NUR ---
HAND-OFF: Report given to Cindy Coles
--- NOTE | 2018-12-08 07:12 | NUR ---
NURSE NOTES: Received report Cathi SNYDER, pt a/a/o seating in chair eating breakfast with no signs of distress or other issues at this time. pt is on RA, NO IV access MD is aware. pt is able to ambulate to the bathroom independently. call light within reach. bed in lowest position. side rales up x2. I will f/u as needed.
[2018-12-08] MEDS: Lisinopril 20mg tab ORAL SCH (09:00)
[2018-12-08] MEDS: dilTIAZem HCl CD 120mg cap ORAL SCH (09:00)
--- NOTE | 2018-12-08 09:13 | General Progress Note ---
Assessment/Plan Status: stable, unchanged Assessment/Plan: 3 y/o man with hx of paroxysmal atrial fibrillation, presented to the hospital with pre-syncope, found to have rapid atrial fibrillation. # Hypotension - lisinopril stopped #Paroxysmal Atrial Fibrillation #Atrial fibrillation with RVR - Cont beta zack and Diltiazem for rate control - holding parameters. - Cont NOAC.. - echo did not show any remarkable changes - Apprec cardiology recs #Anemia due to chronic illness #Thrombocytopenia - Hgb and platelet count appeared to be at baseline, seen by Hematology, no new changes recommended. Labs stable. #unstable gait -continue PT - PATIENT WILL NEED TO BE WITHOUT FWW in order to return to his SNF. Recommend DC to assisted living facility at DC per PT final report. Otherwise, will need new placement. natural sciences manager follow up is needed. WENDY note for conservator reviewed. #Behavorial disorder -psych meds restarted -psychiatry consulted # Disposition Difficult placement. Per telephonic nurse case manager no insurance available. [facility] Need to continue efforts by CM and SW to place. WENDY spoke with Daily Sequeira [phone] who states Veronica spoke with SSI and patient' s SSI will be reinstated December 17. WENDY inquired about placement. Daily indicted she will contact various board and cares but could not guarantee she would locate placement due to patient currently not having income. WENDY updated CM. Will continue to follow up. Medically stable for discharge when placement is approved. CM notes reviewed and public guardian response update. 38 extra minutes spent in chart review including reviewing labs, notes, and imaging. Subjective Date patient seen: Dec 08, 2018 Time patient seen: 08:00 ROS Limited/Unobtainable: No Allergies: Coded Allergies: RISPERIDONE (Unverified Allergy, Unknown, 07/04/18) ZIPRASIDONE (Verified Allergy, Unknown, 06/30/18) Subjective denies cp, dizziness, sob, seizures patient wants to go home and asks how long he will stay. all questions answered Objective Last 24 Hour Vital Signs Date Time Temp Pulse Resp B/P (MAP) Pulse Ox O2 Delivery O2 Flow Rate FiO2 12/08/18 04:00 98.1 87 17 95/58 (70) 96 12/08/18 00:00 98.2 83 18 93/56 (68) 96 12/07/18 21:00 Room Air 12/07/18 20:00 98.0 92 18 100/60 (73) 96 12/07/18 18:03 106/68 12/07/18 16:00 97.9 90 24 106/68 (81) 97 12/07/18 12:00 97.4 93 18 106/63 (77) 97 12/07/18 09:14 91 114/63 12/07/18 09:13 114/63 Intake and Output 12/07/18 12/08/18 19:00 07:00 Intake Total 1500 ml 670 ml Balance 1500 ml 670 ml Intake Oral 1500 ml 670 ml # Voids 3 3 Height (Feet): 5 Height (Inches): 6.00 Weight (Pounds): 109 General Appearance: no apparent distress, alert EENT: PERRL/EOMI, normal ENT inspection Neck: non-tender, normal alignment, supple Cardiovascular: normal rate, regular rhythm, no JVD Respiratory/Chest: lungs clear, normal breath sounds, no respiratory distress, no accessory muscle use Abdomen: non tender, soft, no mass Extremities: normal range of motion Edema: no edema noted Arm (L), no edema noted Arm (R), no edema noted Leg (L), no edema noted Leg (R), no edema noted Pedal (L), no edema noted Pedal (R), no edema noted Generalized Oriana Jalloh DO Dec 08, 2018 09:13
[2018-12-08] MEDS: Depakote ER 500mg tab ORAL SCH (09:48)
[2018-12-08] MEDS: Eliquis 5mg tablet ORAL SCH ×2 (09:49→17:27)
--- NOTE | 2018-12-08 13:30 | NUR ---
*-* INSURANCE *-* UPDATED CLINICALS AND REVIEWS HAVE BEEN FAXED TO: [facility] F:[phone]
--- NOTE | 2018-12-08 16:40 | Hematology/Onc Progress Note ---
Assessment/Plan Assessment/Plan # Anemia of chronic disease due to underlying chronic medical issues, multifactorial --> Anemia workup has been reviewed. Ferritin 83, TIBC 242 --> No evidence of hemolysis is noted, peripheral smear has been reviewed. --> Hgb goal >7. Transfuse prn. --> Epogen or iron at this time is not particularly indicated --> Medications have been reviewed --> hgb trend 14.1-->12.5--> 12.3-->11-->11.2-->10 # Thrombocytopenia - potential causes multifactorial, evaluate liver and viral etiologies to begin, also could be related to underlying medications patient has received. --> Hep panel and HIV on PRIOR admission was negative --> US abd negative for cirrhosis and hsm --> Peripheral smear ordered to evaluate for blasts/schistocytes, none noted --> abx and other meds have been reviewed (one contributor could be depakote) --> ok for ppx if plt >50k w/ either heparin or lovenox --> Transfuse if Plt < 20k and fever, or if Plt < 10k without fever --> Plt trend 118-->169k-->187k--> 102K->133k-->154k-->182k # FTT with decreased bmi on admission --> began on mirtazapine --> daily weight and monitor # Atelectasis, optimize pulmonary hygiene/mobilize as tolerated --> on cxr appears stable --> per pulm recs # Paroxysmal AFib, per cardiology recs--> on noac --> on eliquis (OK to continue) # Hypertension --> controlled, sbp goal < 140 --> per cards # Hypothyroidism. --> synthroid po # Lactic acidosis, resolved # MACARENA, resolved # Placement pending --> rehab, and pt/ot The timing of this note does not necessarily reflect the time of the patient was seen. Greatly appreciate consultation! Subjective Constitutional: Denies: no symptoms, chills, fever, malaise, weakness, other HEENT: Denies: no symptoms, eye pain, blurred vision, tearing, double vision, ear pain, ear discharge, nose pain, nose congestion, throat pain, throat swelling, mouth pain, mouth swelling, other Respiratory: Denies: no symptoms, cough, shortness of breath, SOB with excertion, SOB at rest, sputum, wheezing, other Gastrointestinal/Abdominal: Denies: no symptoms, abdomen distended, abdominal pain, black stools, tarry stools, blood in stool, constipated, diarrhea, difficulty swallowing, nausea, poor appetite, poor fluid intake, rectal bleeding , vomiting, other Genitourinary: Denies: no symptoms, burning, discharge, frequency, flank pain, hematuria, incontinence, pain, urgency, other Neurologic/Psychiatric: Denies: no symptoms, anxiety, depressed, emotional problems, headache, numbness, paresthesia, pre-existing deficit, seizure, tingling, tremors, weakness, other Endocrine: Denies: no symptoms, excessive sweating, flushing, intolerance to cold, intolerance to heat, increased hunger, increased thirst, increased urine, unexplained weight gain, unexplained weight loss, other Allergies: Coded Allergies: RISPERIDONE (Unverified Allergy, Unknown, 07/04/18) ZIPRASIDONE (Verified Allergy, Unknown, 06/30/18) Subjective 11/06: Pt resting in bed. No acute distress. DC planning. 11/08: Pt asleep in bed. No acute events. 11/10: Pt stable, no signs of acute distress or SOB. Venous duplex negative. 11/11: Pt resting in bed. Afebrile, no sob. MRI brain pending. 11/12: Pt in bed, sleeping. No respiratory distress noted. DC planning. 11/13: Pt awake and alert, refused morning meds. No signs of SOB or pain observed. Plt count significantly improved overnight. 11/15: Pt denies pain, no complaints of dyspnea 11/17: Pt resting in bed no chest pain or dyspnea, no other complaints 11/18: unable to place picc given do not have consent 11/20: no acute events reported. 11/21: pt refused am labs as well as am meds. h/h stable from prior labs. 11/22: pt no acute distress. Afebrile, VS reviewed. 11/23: no events reported, no f/c noted 11/24: refusing to participate in exam, labs have been reviewed 11/25: eating ensure this am, discharge planning pending, dw CM 11/26: on noac, continues, no bleeding, hgb is 11.2 7/12: refusing labs this am, discussed with him importance 11/28: resting comfortably, no acute events, no bleeding reported, no night sweats 11/29: no events, no bleeding reported, no night sweats 11/30: no events, no bleeding, no chills, no major night sweats 12/01: getting rehab, pt/ot as needed, no f/c 12/02: walking around the priest with a FWW, says feeling better 12/03: given ativan overnight, feeling better 12/04: awake and alert, no acute events, placement pending 12/05: awake and alert, resting in bed, no acute events. 12/06: anxious and aggravated, vs stable, placement pending per patient case coordinator 12/07: no events to report, no f/c, no night sweats refusing po, will start on mirtazpine 12/08: no events noted, no f/c, no night sweats, no bleeding noted Objective Objective Current Medications Medications (Trade) Dose Ordered Sig/Eduardo Route PRN Reason Start Time Stop Time Status Last Admin Dose Admin Acetaminophen (Tylenol) 650 mg Q4H PRN ORAL Mild Pain/Temp > 100.5 12/02/18 01:00 01/01/19 00:59 12/06/18 00:22 Apixaban (Eliquis) 5 mg BID ORAL 12/05/18 15:00 01/04/19 14:59 12/08/18 09:49 Diltiazem HCl (Cardizem CD) 120 mg DAILY ORAL 11/21/18 10:50 12/21/18 10:49 12/07/18 09:14 Divalproex Sodium (Depakote ER) 500 mg DAILY ORAL 11/19/18 09:00 12/12/18 08:59 12/08/18 09:48 Gabapentin (Neurontin) 100 mg BEDTIME ORAL 11/18/18 21:00 12/18/18 20:59 12/07/18 20:58 Levothyroxine Sodium (Synthroid) 50 mcg DAILY@0630 ORAL 11/13/18 06:30 12/13/18 06:29 12/08/18 06:11 Lisinopril (Prinivil) 20 mg DAILY ORAL 11/22/18 09:00 12/22/18 08:59 12/07/18 09:13 Lorazepam (Ativan) 1 mg Q4H PRN ORAL For Anxiety 12/02/18 14:00 12/09/18 13:59 12/02/18 17:57 Mirtazapine (Remeron) 7.5 mg BEDTIME ORAL 12/07/18 21:00 01/06/19 20:59 12/07/18 20:58 Olanzapine (ZyPREXA) 30 mg BEDTIME ORAL 11/18/18 21:00 12/12/18 08:59 12/07/18 21:44 Last 24 Hour Vital Signs Date Time Temp Pulse Resp B/P (MAP) Pulse Ox O2 Delivery O2 Flow Rate FiO2 12/08/18 16:00 98.5 100 20 140/87 (104) 94 12/08/18 12:00 97.4 100 18 97/60 (72) 100 12/08/18 09:00 79 50 12/08/18 09:00 94/58 12/08/18 09:00 87 94/58 12/08/18 09:00 Room Air 12/08/18 08:00 97.7 88 20 94/58 (70) 96 12/08/18 04:00 98.1 87 17 95/58 (70) 96 12/08/18 00:00 98.2 83 18 93/56 (68) 96 12/07/18 21:00 Room Air 12/07/18 20:00 98.0 92 18 100/60 (73) 96 12/07/18 18:03 106/68 12/07/18 16:00 97.9 90 24 106/68 (81) 97 12/07/18 12:00 97.4 93 18 106/63 (77) 97 12/07/18 09:14 91 114/63 12/07/18 09:13 114/63 12/07/18 09:00 Room Air 12/07/18 09:00 91 12/07/18 08:00 98.4 91 18 114/63 (80) 97 12/07/18 04:00 97.1 81 18 114/69 (84) 96 12/07/18 00:00 97.3 84 18 96/68 (77) 95 12/06/18 21:01 77 98/58 (71) 12/06/18 21:00 Room Air 12/06/18 20:00 97.5 75 18 78/44 (55) 98 12/06/18 17:10 118/90 Intake and Output 12/07/18 12/08/18 19:00 07:00 Intake Total 1500 ml 670 ml Balance 1500 ml 670 ml Intake Oral 1500 ml 670 ml # Voids 3 3 Height (Feet): 5 Height (Inches): 6.00 Weight (Pounds): 109 Objective PHYSICAL EXAMINATION: VITAL SIGNS: Have been reviewed. HEENT: PERRLA. NECK: Supple. No lymphadenopathy. CHEST: Clear to auscultation. CARDIOVASCULAR: Regular rate and rhythm. No murmurs or extra sounds. GASTROINTESTINAL: Soft, nontender, and nondistended. No organomegaly. EXTREMITIES: No edema. Moves all four extremities. NEUROLOGIC: Sensory intact to light touch. Reflexes are equal on both sides. Bennie Goss MD Dec 08, 2018 16:40
--- NOTE | 2018-12-08 18:29 | NUR ---
CASE MANAGEMENT:REVIEW 12/08/18 SI: ANEMIA. AFIB W/RVR 97.4 100 18 97/60 100% ON RA IS: DEPAKOTE 500MG PO QD* ZYPREXA 30MG PO QHS* NEURONTIN 100MG PO QHS* REMERON 30MG PO QHS* LISINOPRIL PO QD* SYNTHROID PO QD* CARDIZEM PO QD* LOPRESSOR PO Q12* ELIQUIS PO BID* ATIVAN PO Q4HRS PRN : MED/SURG STATUS 4 EAST DCP: FROM [facility] NAYAK PLAN: HAS BEEN ON PSYCH MEDS SINCE 11/12/18 PLACEMENT ISSUE D/T PUBLIC GUARDIAN
--- NOTE | 2018-12-08 19:32 | NUR ---
HAND-OFF: Report given to Rand JARAMILLO, pt in stable condition.
--- NOTE | 2018-12-08 19:45 | NUR ---
NURSE NOTES: Received report from ELLA White. Patient A&Ox2. On room air, no signs of distress or labored breathing. No IV access, MD aware. Patient ambulatory. Currently sitting. Will continue to monitor.
[2018-12-08] MEDS: OLANZapine 10mg tab ORAL SCH ×2 (20:39→20:42)
[2018-12-09 04:00] VITALS: BP 111/56
--- NOTE | 2018-12-09 06:47 | Hematology/Onc Progress Note ---
Assessment/Plan Assessment/Plan # Anemia of chronic disease due to underlying chronic medical issues, multifactorial --> Anemia workup has been reviewed. Ferritin 83, TIBC 242 --> No evidence of hemolysis is noted, peripheral smear has been reviewed. --> Hgb goal >7. Transfuse prn. --> Epogen or iron at this time is not particularly indicated --> Medications have been reviewed --> hgb trend 14.1-->12.5--> 12.3-->11-->11.2-->10 # Thrombocytopenia - potential causes multifactorial, evaluate liver and viral etiologies to begin, also could be related to underlying medications patient has received. --> Hep panel and HIV on PRIOR admission was negative --> US abd negative for cirrhosis and hsm --> Peripheral smear ordered to evaluate for blasts/schistocytes, none noted --> abx and other meds have been reviewed (one contributor could be depakote) --> ok for ppx if plt >50k w/ either heparin or lovenox --> Transfuse if Plt < 20k and fever, or if Plt < 10k without fever --> Plt trend 118-->169k-->187k--> 102K->133k-->154k-->182k # FTT with decreased bmi on admission --> began on mirtazapine --> daily weight and monitor # Atelectasis, optimize pulmonary hygiene/mobilize as tolerated --> on cxr appears stable --> per pulm recs # Paroxysmal AFib, per cardiology recs--> on noac --> on eliquis (OK to continue) # Hypertension --> controlled, sbp goal < 140 --> per cards # Hypothyroidism. --> synthroid po # Lactic acidosis, has resolved # MACARENA, resolved # Placement pending --> rehab, and pt/ot The timing of this note does not necessarily reflect the time of the patient was seen. Greatly appreciate consultation! Subjective Constitutional: Denies: no symptoms, chills, fever, malaise, weakness, other Cardiovascular: Denies: no symptoms, chest pain, edema, irregular heart rate, lightheadedness, palpitations, syncope, other Respiratory: Denies: no symptoms, cough, shortness of breath, SOB with excertion, SOB at rest, sputum, wheezing, other Gastrointestinal/Abdominal: Denies: no symptoms, abdomen distended, abdominal pain, black stools, tarry stools, blood in stool, constipated, diarrhea, difficulty swallowing, nausea, poor appetite, poor fluid intake, rectal bleeding , vomiting, other Genitourinary: Denies: no symptoms, burning, discharge, frequency, flank pain, hematuria, incontinence, pain, urgency, other Neurologic/Psychiatric: Denies: no symptoms, anxiety, depressed, emotional problems, headache, numbness, paresthesia, pre-existing deficit, seizure, tingling, tremors, weakness, other Endocrine: Denies: no symptoms, excessive sweating, flushing, intolerance to cold, intolerance to heat, increased hunger, increased thirst, increased urine, unexplained weight gain, unexplained weight loss, other Allergies: Coded Allergies: RISPERIDONE (Unverified Allergy, Unknown, 07/04/18) ZIPRASIDONE (Verified Allergy, Unknown, 06/30/18) Subjective 11/06: Pt resting in bed. No acute distress. DC planning. 11/08: Pt asleep in bed. No acute events. 11/10: Pt stable, no signs of acute distress or SOB. Venous duplex negative. 11/11: Pt resting in bed. Afebrile, no sob. MRI brain pending. 11/12: Pt in bed, sleeping. No respiratory distress noted. DC planning. 11/13: Pt awake and alert, refused morning meds. No signs of SOB or pain observed. Plt count significantly improved overnight. 11/15: Pt denies pain, no complaints of dyspnea 11/17: Pt resting in bed no chest pain or dyspnea, no other complaints 11/18: unable to place picc given do not have consent 11/20: no acute events reported. 11/21: pt refused am labs as well as am meds. h/h stable from prior labs. 11/22: pt no acute distress. Afebrile, VS reviewed. 11/23: no events reported, no f/c noted 11/24: refusing to participate in exam, labs have been reviewed 11/25: eating ensure this am, discharge planning pending, dw CM 11/26: on noac, continues, no bleeding, hgb is 11.2 11/27: refusing labs this am, discussed with him importance 11/28: resting comfortably, no acute events, no bleeding reported, no night sweats 11/29: no events, no bleeding reported, no night sweats 11/30: no events, no bleeding, no chills, no major night sweats 12/01: getting rehab, pt/ot as needed, no f/c 12/02: walking around the priest with a FWW, says feeling better 12/03: given ativan overnight, feeling better 12/04: awake and alert, no acute events, placement pending 12/05: awake and alert, resting in bed, no acute events. 12/06: anxious and aggravated, vs stable, placement pending per caser shoe parts 12/07: no events to report, no f/c, no night sweats refusing po, will start on mirtazpine 12/08: no events noted, no f/c, no night sweats, no bleeding noted 12/09: no events, eating breakfast, cbc again reordered Objective Objective Current Medications Medications (Trade) Dose Ordered Sig/Eduardo Route PRN Reason Start Time Stop Time Status Last Admin Dose Admin Acetaminophen (Tylenol) 650 mg Q4H PRN ORAL Mild Pain/Temp > 100.5 12/02/18 01:00 01/01/19 00:59 12/06/18 00:22 Apixaban (Eliquis) 5 mg BID ORAL 12/05/18 15:00 01/04/19 14:59 12/08/18 17:27 Diltiazem HCl (Cardizem CD) 120 mg DAILY ORAL 11/21/18 10:50 12/21/18 10:49 12/07/18 09:14 Divalproex Sodium (Depakote ER) 500 mg DAILY ORAL 11/19/18 09:00 12/12/18 08:59 12/08/18 09:48 Gabapentin (Neurontin) 100 mg BEDTIME ORAL 11/18/18 21:00 12/18/18 20:59 12/08/18 20:43 Levothyroxine Sodium (Synthroid) 50 mcg DAILY@0630 ORAL 11/13/18 06:30 12/13/18 06:29 12/08/18 06:11 Lisinopril (Prinivil) 20 mg DAILY ORAL 11/22/18 09:00 12/22/18 08:59 12/07/18 09:13 Lorazepam (Ativan) 1 mg Q4H PRN ORAL For Anxiety 12/02/18 14:00 12/09/18 13:59 12/02/18 17:57 Mirtazapine (Remeron) 7.5 mg BEDTIME ORAL 12/07/18 21:00 01/06/19 20:59 12/08/18 20:43 Olanzapine (ZyPREXA) 30 mg BEDTIME ORAL 11/18/18 21:00 12/12/18 08:59 12/08/18 20:42 Last 24 Hour Vital Signs Date Time Temp Pulse Resp B/P (MAP) Pulse Ox O2 Delivery O2 Flow Rate FiO2 12/09/18 04:00 97.5 91 18 111/56 (74) 97 12/08/18 23:59 97.5 85 18 126/76 (93) 97 12/08/18 21:00 Room Air 12/08/18 20:00 97.4 96 18 115/78 (90) 96 12/08/18 16:00 98.5 100 20 140/87 (104) 94 12/08/18 12:00 97.4 100 18 97/60 (72) 100 12/08/18 09:00 79 50 12/08/18 09:00 94/58 12/08/18 09:00 87 94/58 12/08/18 09:00 Room Air 12/08/18 08:00 97.7 88 20 94/58 (70) 96 12/08/18 04:00 98.1 87 17 95/58 (70) 96 12/08/18 00:00 98.2 83 18 93/56 (68) 96 12/07/18 21:00 Room Air 12/07/18 20:00 98.0 92 18 100/60 (73) 96 12/07/18 18:03 106/68 12/07/18 16:00 97.9 90 24 106/68 (81) 97 12/07/18 12:00 97.4 93 18 106/63 (77) 97 12/07/18 09:14 91 114/63 12/07/18 09:13 114/63 12/07/18 09:00 Room Air 12/07/18 09:00 91 12/07/18 08:00 98.4 91 18 114/63 (80) 97 Intake and Output 12/08/18 12/09/18 19:00 07:00 Intake Total 300 ml Balance 300 ml Intake Oral 300 ml # Voids 3 1 Height (Feet): 5 Height (Inches): 6.00 Weight (Pounds): 121 Objective PHYSICAL EXAMINATION: VITAL SIGNS: Have been reviewed. HEENT: PERRLA. NECK: Supple. No lymphadenopathy. CHEST: Clear to auscultation. CARDIOVASCULAR: Regular rate and rhythm. No murmurs or extra sounds. GASTROINTESTINAL: Soft, nontender, and nondistended. No organomegaly. EXTREMITIES: No edema. Moves all four extremities. NEUROLOGIC: Sensory intact to light touch. Reflexes are equal on both sides. Bennie Goss MD Dec 09, 2018 06:47
--- NOTE | 2018-12-09 07:13 | NUR ---
HAND-OFF: Report given to ELLA Banerjee.
--- NOTE | 2018-12-09 07:20 | NUR ---
NURSE NOTES:AWAKE EATING BREAKFAST,ROOM AIR.IN GOOD SPIRIT,COOPERATIVE,NO C/O PAIN.AWAITING FOR PLACEMENT.WILL CONTINUE PLAN OF CARE.
[2018-12-09] MEDS: Eliquis 5mg tablet ORAL SCH ×3 (07:46→19:18)
[2018-12-09] MEDS: dilTIAZem HCl CD 120mg cap ORAL SCH (07:46)
[2018-12-09] MEDS: Lisinopril 20mg tab ORAL SCH (07:46)
[2018-12-09] MEDS: Depakote ER 500mg tab ORAL SCH (07:50)
[2018-12-09 07:55] VITALS: BP 125/83
--- NOTE | 2018-12-09 12:18 | NUR ---
CASE MANAGEMENT:REVIEW 12/09/18 SI: ANEMIA. AFIB W/RVR 98.3 109 18 125/83 99% ON RA IS: DEPAKOTE 500MG PO QD* ZYPREXA 30MG PO QHS* NEURONTIN 100MG PO QHS* REMERON 30MG PO QHS* LISINOPRIL PO QD* SYNTHROID PO QD* CARDIZEM PO QD* LOPRESSOR PO Q12* ELIQUIS PO BID* ATIVAN PO Q4HRS PRN : MED/SURG STATUS 4 EAST DCP: FROM [facility]AY[facility] PLAN: HAS BEEN ON PSYCH MEDS SINCE 11/12/18 PLACEMENT ISSUE D/T PUBLIC GUARDIAN
--- NOTE | 2018-12-09 12:21 | NUR ---
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
--- NOTE | 2018-12-09 13:31 | NUR ---
*-* INSURANCE *-* UPDATED CLINICALS AND REVIEWS HAVE BEEN FAXED TO: [facility] F:[phone]
--- NOTE | 2018-12-09 14:23 | Neurology Progress Note ---
Interim History Interim History ROS Limited/Unobtainable: No Complaints: Pre-syncope Events: no changes Interim History on proper anticoag pending dispo Objective Physical Exam Last Vital Signs Date Time Temp Pulse Resp B/P (MAP) Pulse Ox O2 Delivery O2 Flow Rate FiO2 12/09/18 07:55 98.3 109 18 125/83 (97) 99 12/09/18 07:20 Room Air General: well developed, well nourished Head: normocophalic Neck: no rigidity EENT: benign Neurologic Exam Mental Status: awake, alert, oriented x4, normal cognition, good mathematical skills, normal recent memory, normal remote memory, preserved visuospatial function Speech: normal speech, no dysarthia Language: normal language, no aphasia Cranial Nerve II: fundus normal, visual francis, no papilledema Cranial Nerves III, IV, : PERRLA, EOMI, pupils Cranial Nerve V: normal facial sensations, temporales function normal, masseters function normal, pterygoids function normal Cranial Nerve VII: no facial asymmetry, normal facial expressions Cranial Nerve VIII: normal hearing, no nystagmus Cranial Nerve IX: normal palate elevation, gag response Cranial Nerve X: no voice hoarseness Cranial Nerve XI: SCM symmetric, trapezii function normal Cranial Nerve XII: tongue midline, no tongue atrophy/fasciculations Motor System: normal muscle tone, strength 5/5, no involuntary movement, no muscle wasting Sensory: normal pinprick, normal light touch, normal position sense, normal graphesthesia Coordination: normal finger to nose bilaterally, normal heel to ramsay bilaterally, negative Romberg test Deep Tendon Reflexes: 2+ bicep (L), 2+ bicep (R), 2+ tricep (L), 2+ tricep (R) , 2+ brachioradialis (L), 2+ brachioradialis (R), 2+ knee (L), 2+ knee (R), 2+ ankle (L), 2+ ankle (R) Stance: normal Gait: stable, normal regular, heel + toe gait Impression/Recommendations Problems: (1) Anemia (2) Pre-syncope (3) Hyponatremia (4) Dehydration (5) Syncope (6) Parkinsonism (7) HTN (hypertension) (8) Hypothyroid (9) Atrial fibrillation Status: stable, unchanged Diagnostic Impression Parkinsonism stable - trail of sinemet as outpatient once metabolic abnormalities resolve PT OT Cont NOAC will benefit from rehab placement Serjio Sharpe MD Dec 09, 2018 14:23
[2018-12-09 16:00] VITALS: BP 105/66
--- NOTE | 2018-12-09 16:58 | NUR ---
NURSE NOTES:AMBULATING IN HALLWAY USING WALKER WITH STAFF STANDBY ASSIST.
--- NOTE | 2018-12-09 19:00 | NUR ---
HAND-OFF: Report given to TONG JARAMILLO.PT.STABLE.
--- NOTE | 2018-12-09 19:54 | General Progress Note ---
Assessment/Plan Status: stable, unchanged Assessment/Plan: 3 y/o man with hx of paroxysmal atrial fibrillation, presented to the hospital with pre-syncope, found to have rapid atrial fibrillation. # Hypotension - lisinopril stopped #Paroxysmal Atrial Fibrillation #Atrial fibrillation with RVR - Cont beta zack and Diltiazem for rate control - holding parameters. - Cont NOAC.. - echo did not show any remarkable changes - Apprec cardiology recs #Anemia due to chronic illness #Thrombocytopenia - Hgb and platelet count appeared to be at baseline, seen by Hematology, no new changes recommended. Labs stable. #unstable gait -continue PT - PATIENT WILL NEED TO BE WITHOUT FWW in order to return to his [facility]. Recommend [place] to assisted living facility at [place] per PT final report. Otherwise, will need new placement. condominium association manager follow up is needed. WENDY note for conservator reviewed. #Behavorial disorder -psych meds restarted -psychiatry consulted # Disposition Difficult placement. Per manager case management no insurance available. [facility] Need to continue efforts by CM and SW to place. WENDY spoke with Daily Sequeira [phone] who states Veronica spoke with SSI and patient' s SSI will be reinstated December 17. WENDY inquired about placement. Daily indicted she will contact various board and cares but could not guarantee she would locate placement due to patient currently not having income. WENDY updated CM. Will continue to follow up. Medically stable for discharge when placement is approved. Subjective Date patient seen: Dec 09, 2018 Allergies: Coded Allergies: RISPERIDONE (Unverified Allergy, Unknown, 07/04/18) ZIPRASIDONE (Verified Allergy, Unknown, 06/30/18) Subjective Pt with unstable gait, cont PT daily. No chest pain or dyspnea, no other complaints, no tele events. Refused MRI, ambulating, Objective Last 24 Hour Vital Signs Date Time Temp Pulse Resp B/P (MAP) Pulse Ox O2 Delivery O2 Flow Rate FiO2 12/09/18 16:00 97.8 89 18 105/66 (79) 99 12/09/18 07:55 98.3 109 18 125/83 (97) 99 12/09/18 07:54 109 12/09/18 07:46 125/83 12/09/18 07:46 109 125/83 12/09/18 07:20 Room Air 12/09/18 04:00 97.5 91 18 111/56 (74) 97 12/08/18 23:59 97.5 85 18 126/76 (93) 97 12/08/18 21:00 Room Air 12/08/18 20:00 97.4 96 18 115/78 (90) 96 Intake and Output 12/08/18 12/09/18 19:00 07:00 Intake Total 300 ml Balance 300 ml Intake Oral 300 ml # Voids 3 1 Height (Feet): 5 Height (Inches): 6.00 Weight (Pounds): 121 Objective General: alert, cooperative, no distress, appears stated age Head: normocephalic, without obvious abnormality, atraumatic Eyes: conjunctivae/corneas clear. PERRL, EOM's intact Throat: lips, mucosa, and tongue normal. MMM Neck: supple, symmetrical, trachea midline, and no JVD Lungs: clear to auscultation bilaterally Heart: regular rate and rhythm, S1, S2 normal, no murmur, click, rub or gallop Abdomen: soft, non-tender, non-distended, bowel sounds normal; no masses or organomegaly Extremities: extremities normal, atraumatic, no cyanosis or edema Pulses: 2+ and symmetric Skin: skin color, texture, turgor normal; no rashes or lesions Neurologic: grossly normal, no focal deficits Anny Cole MD Dec 09, 2018 19:54
[2018-12-09 20:00] VITALS: BP 117/72
[2018-12-09] MEDS: OLANZapine 10mg tab ORAL SCH (20:05)
[2018-12-10 04:45] VITALS: BP 110/59
--- NOTE | 2018-12-10 05:30 | NUR ---
NURSE NOTES: Pt refused lab draw. Explained risks & benefits but pt continued to refuse.
--- NOTE | 2018-12-10 07:20 | NUR ---
NURSE NOTES: Report received from Margie RN, rounds made. Patient sitting at bedside, alert, oriented x2, calm. No distress on RA, no IV access. Denies pain. Tolerated breakfast well (75% and drank x2 Ensure bottles), no NV. Reinforced call light and using RW with ambulation for safety, verbalized understanding. Call light in reach, bed in lowest position, will continue to monitor.
--- NOTE | 2018-12-10 07:30 | NUR ---
HAND-OFF: Report given to ELLA Serrano. Pt in stable condition. Rounds done.
[2018-12-10 08:00] VITALS: BP 120/77
[2018-12-10] MEDS: dilTIAZem HCl CD 120mg cap ORAL SCH (09:35)
[2018-12-10] MEDS: Lisinopril 20mg tab ORAL SCH (09:36)
[2018-12-10] MEDS: Eliquis 5mg tablet ORAL SCH ×2 (09:36→18:46)
[2018-12-10] MEDS: Depakote ER 500mg tab ORAL SCH (09:36)
--- NOTE | 2018-12-10 10:19 | General Progress Note ---
Assessment/Plan Status: stable, unchanged Assessment/Plan: # Anemia of chronic disease due to underlying chronic medical issues, multifactorial --> Anemia workup has been reviewed. Ferritin 83, TIBC 242 --> No evidence of hemolysis is noted, peripheral smear has been reviewed. --> Hgb goal >7. Transfuse prn. --> Epogen or iron at this time is not particularly indicated --> Medications have been reviewed --> hgb trend 14.1-->12.5--> 12.3-->11-->11.2-->10 # Thrombocytopenia - potential causes multifactorial, evaluate liver and viral etiologies to begin, also could be related to underlying medications patient has received. --> Hep panel and HIV on PRIOR admission was negative --> US abd negative for cirrhosis and hsm --> Peripheral smear ordered to evaluate for blasts/schistocytes, none noted --> abx and other meds have been reviewed (one contributor could be depakote) --> ok for ppx if plt >50k w/ either heparin or lovenox --> Transfuse if Plt < 20k and fever, or if Plt < 10k without fever --> Plt trend 118-->169k-->187k--> 102K->133k-->154k-->182k # FTT with decreased bmi on admission --> began on mirtazapine --> daily weight and monitor # Atelectasis, optimize pulmonary hygiene/mobilize as tolerated --> on cxr appears stable --> per pulm recs # Paroxysmal AFib, per cardiology recs--> on noac --> on eliquis (OK to continue) # Hypertension --> controlled, sbp goal <140 --> per cards # Hypothyroidism --> synthroid po continue # Lactic acidosis, has resolved # MACARENA, resolved # Placement pending --> rehab, and pt/ot The timing of this note does not necessarily reflect the time of the patient was seen. Greatly appreciate consultation! Subjective Constitutional: Denies: no symptoms, chills, diaphoresis, fever, malaise, weakness, other Cardiovascular: Denies: no symptoms, chest pain, edema, irregular heart rate, lightheadedness, palpitations, syncope, other Respiratory: Denies: no symptoms, cough, orthopnea, shortness of breath, SOB with excertion, SOB at rest, sputum, stridor, wheezing, other Gastrointestinal/Abdominal: Denies: no symptoms, abdomen distended, abdominal pain, black stools, tarry stools, blood in stool, constipated, diarrhea, difficulty swallowing, nausea, poor appetite, poor fluid intake, rectal bleeding , vomiting, other Genitourinary: Denies: no symptoms, burning, discharge, frequency, flank pain, hematuria, incontinence, pain, urgency, other Neurologic/Psychiatric: Denies: no symptoms, anxiety, depressed, emotional problems, headache, numbness, paresthesia, pre-existing deficit, seizure, tingling, tremors, weakness, other Endocrine: Denies: no symptoms, excessive sweating, flushing, intolerance to cold, intolerance to heat, increased hunger, increased thirst, increased urine, unexplained weight gain, unexplained weight loss, other Allergies: Coded Allergies: RISPERIDONE (Unverified Allergy, Unknown, 07/04/18) ZIPRASIDONE (Verified Allergy, Unknown, 06/30/18) Subjective 11/06: Pt resting in bed. No acute distress. DC planning. 11/08: Pt asleep in bed. No acute events. 11/10: Pt stable, no signs of acute distress or SOB. Venous duplex negative. 11/11: Pt resting in bed. Afebrile, no sob. MRI brain pending. 11/12: Pt in bed, sleeping. No respiratory distress noted. DC planning. 11/13: Pt awake and alert, refused morning meds. No signs of SOB or pain observed. Plt count significantly improved overnight. 11/15: Pt denies pain, no complaints of dyspnea 11/17: Pt resting in bed no chest pain or dyspnea, no other complaints 11/18: unable to place picc given do not have consent 11/20: no acute events reported. 11/21: pt refused am labs as well as am meds. h/h stable from prior labs. 11/22: pt no acute distress. Afebrile, VS reviewed. 11/23: no events reported, no f/c noted 11/24: refusing to participate in exam, labs have been reviewed 11/25: eating ensure this am, discharge planning pending, dw CM 11/26: on noac, continues, no bleeding, hgb is 11.2 11/27: refusing labs this am, discussed with him importance 11/28: resting comfortably, no acute events, no bleeding reported, no night sweats 11/29: no events, no bleeding reported, no night sweats 11/30: no events, no bleeding, no chills, no major night sweats 12/01: getting rehab, pt/ot as needed, no f/c 12/02: walking around the priest with a FWW, says feeling better 12/03: given ativan overnight, feeling better 12/04: awake and alert, no acute events, placement pending 12/05: awake and alert, resting in bed, no acute events. 12/06: anxious and aggravated, vs stable, placement pending per registered nurse hh case manager 12/07: no events to report, no f/c, no night sweats refusing po, will start on mirtazpine 12/08: no events noted, no f/c, no night sweats, no bleeding noted 12/09: no events, eating breakfast, cbc again reordered 12/10: no fevers or chills noted, no bleeding, no events, pending placement Objective Last 24 Hour Vital Signs Date Time Temp Pulse Resp B/P (MAP) Pulse Ox O2 Delivery O2 Flow Rate FiO2 12/10/18 09:36 120/77 12/10/18 09:35 87 120/77 12/10/18 09:00 Room Air 12/10/18 09:00 95 93 108 12/10/18 08:00 97.5 87 19 120/77 (91) 95 12/10/18 04:45 98.6 62 18 110/59 (76) 98 12/09/18 21:00 Room Air 12/09/18 20:00 98.0 91 20 117/72 (87) 98 12/09/18 16:00 97.8 89 18 105/66 (79) 99 Intake and Output 12/09/18 12/10/18 19:00 07:00 Intake Total 1200 ml 720 ml Balance 1200 ml 720 ml Intake Oral 1200 ml 720 ml # Voids 3 4 Height (Feet): 5 Height (Inches): 6.00 Weight (Pounds): 121 Objective PHYSICAL EXAMINATION: VITAL SIGNS: Have been reviewed. HEENT: PERRLA. NECK: Supple. No lymphadenopathy. CHEST: Clear to auscultation. CARDIOVASCULAR: Regular rate and rhythm. No murmurs or extra sounds. GASTROINTESTINAL: Soft, nontender, and nondistended. No organomegaly. EXTREMITIES: No edema. Moves all four extremities. NEUROLOGIC: Sensory intact to light touch. Reflexes are equal on both sides. Bennie Goss MD Dec 10, 2018 10:19
--- NOTE | 2018-12-10 10:26 | NUR ---
*-* INSURANCE *-* UPDATED CLINICALS AND REVIEWS HAVE BEEN FAXED TO: [facility] F:[phone]
--- NOTE | 2018-12-10 10:34 | NUR ---
RD ASSESSMENT & RECOMMENDATIONS SEE CARE ACTIVITY FOR COMPLETE ASSESSMENT DAILY ESTIMATED NEEDS: Needs based on cardiac, possible wt loss/ 49kg 30-35 kcals/kg 9467-6444 total kcals 1-1.5 g protein/kg 49-74 g total protein 25-30 mL/kg 5949-1222 total fluid mLs NUTRITION DIAGNOSIS: Increased kcal/prot intake needs R/T wt loss as evidenced by pt w/ possible significant wt loss of 23lbs/17.5% in 4 months, poor PO intake upon adm, now w/ improved PO intake CURRENT DIET:REGULAR + Ensure Enlive TID w/ meals PO DIET RECOMMENDATIONS: Maintain liberalized REGULAR diet ADDITIONAL RECOMMENDATIONS: * Calibrated bedscale wt or standing wt of accurate CBW * Weekly wt monitoring given possible h/o wt loss * Ensure Enlive MAXIMUM 4-5x daily (350kcal/20g prot per bottle) -> pt asking for 2-3 bottles of Ensure Enlive each meal * Updated CBC and BMP as able (last BUN elev) * Vit D 1000IU daily (low Vit D25=29) * Encourage intake of meal trays- pt mostly drinking Ensure and not meals
[2018-12-10 12:00] VITALS: BP 130/78
[2018-12-10 16:00] VITALS: BP 115/66
--- NOTE | 2018-12-10 16:02 | NUR ---
CASE MANAGEMENT:REVIEW 12/10/18 SI: ANEMIA. AFIB W/RVR 97.5 96 20 130/78 95% ON RA IS: DEPAKOTE 500MG PO QD* ZYPREXA 30MG PO QHS* NEURONTIN 100MG PO QHS* REMERON 30MG PO QHS* LISINOPRIL PO QD* SYNTHROID PO QD* CARDIZEM PO QD* LOPRESSOR PO Q12* ELIQUIS PO BID* ATIVAN PO Q4HRS PRN : MED/SURG STATUS 4 EAST DCP: FROM [facility] PLAN: HAS BEEN ON PSYCH MEDS SINCE 11/12/18 PLACEMENT ISSUE D/T PUBLIC GUARDIAN
--- NOTE | 2018-12-10 17:38 | General Progress Note ---
Assessment/Plan Status: stable, unchanged Assessment/Plan: 3 y/o man with hx of paroxysmal atrial fibrillation, presented to the hospital with pre-syncope, found to have rapid atrial fibrillation. # Hypotension - lisinopril stopped #Paroxysmal Atrial Fibrillation #Atrial fibrillation with RVR - Cont beta zack and Diltiazem for rate control - holding parameters. - Cont NOAC.. - echo did not show any remarkable changes - Apprec cardiology recs #Anemia due to chronic illness #Thrombocytopenia - Hgb and platelet count appeared to be at baseline, seen by Hematology, no new changes recommended. Labs stable. #unstable gait -continue PT - PATIENT WILL NEED TO BE WITHOUT FWW in order to return to his [facility]. Recommend DC to assisted living facility at [place] per PT final report. Otherwise, will need new placement. regional merchandising manager follow up is needed. WENDY note for conservator reviewed. #Behavorial disorder -psych meds restarted -psychiatry consulted # Disposition Difficult placement. Per registered nurse hh case manager no insurance available. [facility] Need to continue efforts by CM and SW to place. WENDY spoke with Daily Sequeira [phone] who states Veronica spoke with SSI and patient' s SSI will be reinstated December 17. WENDY inquired about placement. Daily indicted she will contact various board and cares but could not guarantee she would locate placement due to patient currently not having income. WENDY updated CM. Will continue to follow up. Medically stable for discharge when placement is approved. Subjective Date patient seen: Dec 10, 2018 Allergies: Coded Allergies: RISPERIDONE (Unverified Allergy, Unknown, 07/04/18) ZIPRASIDONE (Verified Allergy, Unknown, 06/30/18) Subjective No acute overnight events, No chest pain or dyspnea, no other complaints, Refused MRI, ambulating, labs ordered for claudia Objective Last 24 Hour Vital Signs Date Time Temp Pulse Resp B/P (MAP) Pulse Ox O2 Delivery O2 Flow Rate FiO2 12/10/18 12:00 97.5 96 20 130/78 (95) 95 12/10/18 09:36 120/77 12/10/18 09:35 87 120/77 12/10/18 09:00 Room Air 12/10/18 09:00 95 93 108 12/10/18 08:00 97.5 87 19 120/77 (91) 95 12/10/18 04:45 98.6 62 18 110/59 (76) 98 12/09/18 21:00 Room Air 12/09/18 20:00 98.0 91 20 117/72 (87) 98 Intake and Output 12/09/18 12/10/18 19:00 07:00 Intake Total 1200 ml 720 ml Balance 1200 ml 720 ml Intake Oral 1200 ml 720 ml # Voids 3 4 Height (Feet): 5 Height (Inches): 6.00 Weight (Pounds): 121 Objective General: alert, cooperative, no distress, appears stated age Head: normocephalic, without obvious abnormality, atraumatic Eyes: conjunctivae/corneas clear. PERRL, EOM's intact Throat: lips, mucosa, and tongue normal. MMM Neck: supple, symmetrical, trachea midline, and no JVD Lungs: clear to auscultation bilaterally Heart: regular rate and rhythm, S1, S2 normal, no murmur, click, rub or gallop Abdomen: soft, non-tender, non-distended, bowel sounds normal; no masses or organomegaly Extremities: extremities normal, atraumatic, no cyanosis or edema Pulses: 2+ and symmetric Skin: skin color, texture, turgor normal; no rashes or lesions Neurologic: grossly normal, no focal deficits Anny Cole MD Dec 10, 2018 17:38
--- NOTE | 2018-12-10 19:25 | Neurology Progress Note ---
Interim History Interim History ROS Limited/Unobtainable: No Complaints: Pre-syncope Events: no changes Interim History ambulating Objective Physical Exam Last Vital Signs Date Time Temp Pulse Resp B/P (MAP) Pulse Ox O2 Delivery O2 Flow Rate FiO2 12/10/18 16:00 97.4 88 20 115/66 (82) 96 12/10/18 09:00 Room Air General: well developed, well nourished Head: normocophalic Neck: no rigidity EENT: benign Neurologic Exam Mental Status: awake, alert, oriented x4, normal cognition, good mathematical skills, normal recent memory, normal remote memory, preserved visuospatial function Speech: normal speech, no dysarthia Language: normal language, no aphasia Cranial Nerve II: fundus normal, visual francis, no papilledema Cranial Nerves III, IV, : PERRLA, EOMI, pupils Cranial Nerve V: normal facial sensations, temporales function normal, masseters function normal, pterygoids function normal Cranial Nerve VII: no facial asymmetry, normal facial expressions Cranial Nerve VIII: normal hearing, no nystagmus Cranial Nerve IX: normal palate elevation, gag response Cranial Nerve X: no voice hoarseness Cranial Nerve XI: SCM symmetric, trapezii function normal Cranial Nerve XII: tongue midline, no tongue atrophy/fasciculations Motor System: normal muscle tone, strength 5/5, no involuntary movement, no muscle wasting Sensory: normal pinprick, normal light touch, normal position sense, normal graphesthesia Coordination: normal finger to nose bilaterally, normal heel to ramsay bilaterally, negative Romberg test Deep Tendon Reflexes: 2+ bicep (L), 2+ bicep (R), 2+ tricep (L), 2+ tricep (R) , 2+ brachioradialis (L), 2+ brachioradialis (R), 2+ knee (L), 2+ knee (R), 2+ ankle (L), 2+ ankle (R) Stance: normal Gait: stable, normal regular, heel + toe gait Impression/Recommendations Problems: (1) Anemia (2) Pre-syncope (3) Hyponatremia (4) Dehydration (5) Syncope (6) Parkinsonism (7) HTN (hypertension) (8) Hypothyroid (9) Atrial fibrillation Status: stable, unchanged Diagnostic Impression Parkinsonism stable - trail of sinemet as outpatient once metabolic abnormalities resolve PT OT Cont NOAC will benefit from rehab placement Serjio Sharpe MD Dec 10, 2018 19:25
--- NOTE | 2018-12-10 19:35 | NUR ---
HAND-OFF: Report given to Liana JARAMILLO.
--- NOTE | 2018-12-10 19:45 | NUR ---
NURSE NOTES: Pt lying in bed w/bed in lowest position and call light within reach. Pt A&Ox2, VSS, and in no apparent distress at this time. No IV access noted and skin intact. Pt has no complaints or concerns at this time. Will continue to monitor.
[2018-12-10 20:00] VITALS: BP 122/69
[2018-12-10] MEDS: OLANZapine 10mg tab ORAL SCH (20:29)
--- NOTE | 2018-12-11 07:22 | NUR ---
HAND-OFF: Report given to ELLA Serrano.
--- NOTE | 2018-12-11 07:25 | NUR ---
NURSE NOTES: Report received from Liana JARAMILLO, rounds made. Patient sleeing in left lateral position, in bed. No distress noted on RA. No facial grimacing/moaning noted. No IV access. Call light in reach, bed in lowest position, will continue to monitor.
[2018-12-11 08:00] VITALS: BP 127/87
--- NOTE | 2018-12-11 08:53 | Hematology/Onc Progress Note ---
Assessment/Plan Assessment/Plan # Anemia of chronic disease due to underlying chronic medical issues, multifactorial --> Anemia workup has been reviewed. Ferritin 83, TIBC 242 --> No evidence of hemolysis is noted, peripheral smear has been reviewed. --> Hgb goal >7. Transfuse prn. --> Epogen or iron at this time is not particularly indicated --> Medications have been reviewed --> hgb trend 14.1-->12.5--> 12.3-->11-->11.2-->10 # Thrombocytopenia - potential causes multifactorial, evaluate liver and viral etiologies to begin, also could be related to underlying medications patient has received. --> Hep panel and HIV on PRIOR admission was negative --> US abd negative for cirrhosis and hsm --> Peripheral smear ordered to evaluate for blasts/schistocytes, none noted --> abx and other meds have been reviewed (one contributor could be depakote) --> ok for ppx if plt >50k w/ either heparin or lovenox --> Transfuse if Plt < 20k and fever, or if Plt < 10k without fever --> Plt trend 118-->169k-->187k--> 102K->133k-->154k-->182k # FTT with decreased bmi on admission --> began on mirtazapine --> daily weight and monitor # Atelectasis, optimize pulmonary hygiene/mobilize as tolerated --> on cxr appears stable --> per pulm recs # Paroxysmal AFib, per cardiology recs--> on noac --> on eliquis (OK to continue) # Hypertension --> controlled, sbp goal <140 --> per cards # Hypothyroidism --> synthroid po continue # Lactic acidosis, has resolved # MACARENA, resolved # Placement pending --> rehab, and pt/ot The timing of this note does not necessarily reflect the time of the patient was seen. Greatly appreciate consultation! Subjective Constitutional: Denies: no symptoms, chills, fever, malaise, weakness, other HEENT: Denies: no symptoms, eye pain, blurred vision, tearing, double vision, ear pain, ear discharge, nose pain, nose congestion, throat pain, throat swelling, mouth pain, mouth swelling, other Cardiovascular: Denies: no symptoms, chest pain, edema, irregular heart rate, lightheadedness, palpitations, syncope, other Respiratory: Denies: no symptoms, cough, shortness of breath, SOB with excertion, SOB at rest, sputum, wheezing, other Gastrointestinal/Abdominal: Denies: no symptoms, abdomen distended, abdominal pain, black stools, tarry stools, blood in stool, constipated, diarrhea, difficulty swallowing, nausea, poor appetite, poor fluid intake, rectal bleeding , vomiting, other Genitourinary: Denies: no symptoms, burning, discharge, frequency, flank pain, hematuria, incontinence, pain, urgency, other Neurologic/Psychiatric: Denies: no symptoms, anxiety, depressed, emotional problems, headache, numbness, paresthesia, pre-existing deficit, seizure, tingling, tremors, weakness, other Hematologic/Lymphatic: Denies: no symptoms, anemia, easy bleeding, easy bruising, adenopathy, other Allergies: Coded Allergies: RISPERIDONE (Unverified Allergy, Unknown, 07/04/18) ZIPRASIDONE (Verified Allergy, Unknown, 06/30/18) Subjective 11/06: Pt resting in bed. No acute distress. DC planning. 11/08: Pt asleep in bed. No acute events. 11/10: Pt stable, no signs of acute distress or SOB. Venous duplex negative. 11/11: Pt resting in bed. Afebrile, no sob. MRI brain pending. 11/12: Pt in bed, sleeping. No respiratory distress noted. DC planning. 11/13: Pt awake and alert, refused morning meds. No signs of SOB or pain observed. Plt count significantly improved overnight. 11/15: Pt denies pain, no complaints of dyspnea 11/17: Pt resting in bed no chest pain or dyspnea, no other complaints 11/18: unable to place picc given do not have consent 11/20: no acute events reported. 11/21: pt refused am labs as well as am meds. h/h stable from prior labs. 11/22: pt no acute distress. Afebrile, VS reviewed. 11/23: no events reported, no f/c noted 11/24: refusing to participate in exam, labs have been reviewed 11/25: eating ensure this am, discharge planning pending, deandre FERRARI 11/26: on noac, continues, no bleeding, hgb is 11.2 11/27: refusing labs this am, discussed with him importance 11/28: resting comfortably, no acute events, no bleeding reported, no night sweats 11/29: no events, no bleeding reported, no night sweats 11/30: no events, no bleeding, no chills, no major night sweats 12/01: getting rehab, pt/ot as needed, no f/c 12/02: walking around the priest with a FWW, says feeling better 12/03: given ativan overnight, feeling better 12/04: awake and alert, no acute events, placement pending 12/05: awake and alert, resting in bed, no acute events. 12/06: anxious and aggravated, vs stable, placement pending per case fitter 12/07: no events to report, no f/c, no night sweats refusing po, will start on mirtazpine 12/08: no events noted, no f/c, no night sweats, no bleeding noted 12/09: no events, eating breakfast, cbc again reordered 12/10: no fevers or chills noted, no bleeding, no events, pending placement 12/11: walking around in hallway, no complaints, eating Objective Objective Current Medications Medications (Trade) Dose Ordered Sig/Eduardo Route PRN Reason Start Time Stop Time Status Last Admin Dose Admin Acetaminophen (Tylenol) 650 mg Q4H PRN ORAL Mild Pain/Temp > 100.5 12/02/18 01:00 01/01/19 00:59 12/06/18 00:22 Apixaban (Eliquis) 5 mg BID ORAL 12/05/18 15:00 01/04/19 14:59 12/10/18 18:46 Diltiazem HCl (Cardizem CD) 120 mg DAILY ORAL 11/21/18 10:50 12/21/18 10:49 12/10/18 09:35 Divalproex Sodium (Depakote ER) 500 mg DAILY ORAL 11/19/18 09:00 12/12/18 08:59 12/10/18 09:36 Gabapentin (Neurontin) 100 mg BEDTIME ORAL 11/18/18 21:00 12/18/18 20:59 12/10/18 20:28 Levothyroxine Sodium (Synthroid) 50 mcg DAILY@0630 ORAL 11/13/18 06:30 12/13/18 06:29 12/11/18 06:11 Lisinopril (Prinivil) 20 mg DAILY ORAL 11/22/18 09:00 12/22/18 08:59 12/10/18 09:36 Mirtazapine (Remeron) 7.5 mg BEDTIME ORAL 12/07/18 21:00 01/06/19 20:59 12/10/18 20:28 Olanzapine (ZyPREXA) 30 mg BEDTIME ORAL 11/18/18 21:00 12/12/18 08:59 12/10/18 20:29 Temazepam (Restoril) 15 mg HSPRN PRN ORAL Insomnia 12/10/18 21:00 12/17/18 20:59 12/11/18 02:41 Last 24 Hour Vital Signs Date Time Temp Pulse Resp B/P (MAP) Pulse Ox O2 Delivery O2 Flow Rate FiO2 12/11/18 08:00 98.3 91 20 127/87 (100) 98 12/10/18 21:00 Room Air 12/10/18 20:00 97.8 76 20 122/69 (86) 96 12/10/18 16:00 97.4 88 20 115/66 (82) 96 12/10/18 12:00 97.5 96 20 130/78 (95) 95 12/10/18 09:36 120/77 12/10/18 09:35 87 120/77 12/10/18 09:00 Room Air 12/10/18 09:00 95 93 108 12/10/18 08:00 97.5 87 19 120/77 (91) 95 12/10/18 04:45 98.6 62 18 110/59 (76) 98 12/09/18 21:00 Room Air 12/09/18 20:00 98.0 91 20 117/72 (87) 98 12/09/18 16:00 97.8 89 18 105/66 (79) 99 Intake and Output 12/10/18 12/11/18 18:59 06:59 Intake Total 472 ml 240 ml Balance 472 ml 240 ml Intake Oral 472 ml 240 ml # Voids 4 # Bowel Movements 1 Height (Feet): 5 Height (Inches): 6.00 Weight (Pounds): 121 Objective PHYSICAL EXAMINATION: VITAL SIGNS: Have been reviewed. HEENT: PERRLA. NECK: Supple. No lymphadenopathy. CHEST: Clear to auscultation. CARDIOVASCULAR: Regular rate and rhythm. No murmurs or extra sounds. GASTROINTESTINAL: Soft, nontender, and nondistended. No organomegaly. EXTREMITIES: No edema. Moves all four extremities. NEUROLOGIC: Sensory intact to light touch. Reflexes are equal on both sides. Bennie Goss MD Dec 11, 2018 08:53
--- NOTE | 2018-12-11 09:00 | NUR ---
NURSE NOTES: Patient refused orthostatic blood pressure assessment. Only allowed one blood pressure reading, sitting, stable BP 126/81 mmHg HR 93.
[2018-12-11] MEDS: Depakote ER 500mg tab ORAL SCH (09:23)
[2018-12-11] MEDS: dilTIAZem HCl CD 120mg cap ORAL SCH (09:23)
[2018-12-11] MEDS: Eliquis 5mg tablet ORAL SCH ×2 (09:24→18:39)
[2018-12-11] MEDS: Lisinopril 20mg tab ORAL SCH (09:24)
--- NOTE | 2018-12-11 11:49 | NUR ---
*-* INSURANCE *-* UPDATED CLINICALS AND REVIEWS HAVE BEEN FAXED TO: [facility] F:[phone]
[2018-12-11 12:00] VITALS: BP 132/82
--- NOTE | 2018-12-11 13:09 | NUR ---
Social Service Note BUTCH Sequeira [phone] is out of the office until December 14. WENDY left a message for farm equipment maintenance supervisor [phone] Veronica Hayes regarding placement. Awaiting return call.
[2018-12-11 16:00] VITALS: BP 107/63
--- NOTE | 2018-12-11 16:36 | NUR ---
CASE MANAGEMENT:REVIEW 12/11/18 SI: ANEMIA. AFIB W/RVR 97.7 88 18 132/82 97% ON RA IS: DEPAKOTE 500MG PO QD* ZYPREXA 30MG PO QHS* NEURONTIN 100MG PO QHS* REMERON 30MG PO QHS* LISINOPRIL PO QD* SYNTHROID PO QD* CARDIZEM PO QD* LOPRESSOR PO Q12* ELIQUIS PO BID* ATIVAN PO Q4HRS PRN : MED/SURG STATUS 4 EAST DCP: FROM [facility] PLAN: HAS BEEN ON PSYCH MEDS SINCE 11/12/18 PLACEMENT ISSUE D/T PUBLIC GUARDIAN
--- NOTE | 2018-12-11 19:30 | NUR ---
NURSE NOTES: Receive a report from ELLA Serrano. Pt is sitting on the chair in the hallway. Awake with forgetfulness. Wants to know when he can discharge. Explain for any updates if available. Denies any pain. Provide fall precautions. Will continue to monitor.
--- NOTE | 2018-12-11 19:35 | NUR ---
HAND-OFF: Report given to Zander JARAMILLO.
[2018-12-11 20:00] VITALS: BP 101/71
[2018-12-11] MEDS: OLANZapine 10mg tab ORAL SCH (20:51)
[2018-12-11 23:35] VITALS: BP 103/80
--- NOTE | 2018-12-11 23:53 | General Progress Note ---
Assessment/Plan Status: stable, unchanged Assessment/Plan: 63 y/o man with hx of paroxysmal atrial fibrillation, presented to the hospital with pre-syncope, found to have rapid atrial fibrillation. # Hypotension - lisinopril stopped #Paroxysmal Atrial Fibrillation #Atrial fibrillation with RVR - Cont beta zack and Diltiazem for rate control - holding parameters. - Cont NOAC.. - echo did not show any remarkable changes - Apprec cardiology recs #Anemia due to chronic illness #Thrombocytopenia - Hgb and platelet count appeared to be at baseline, seen by Hematology, no new changes recommended. Labs stable. #unstable gait -continue PT - PATIENT WILL NEED TO BE WITHOUT FWW in order to return to his [place]. Recommend DC to assisted living facility at [place] per PT final report. Otherwise, will need new placement. visual display manager follow up is needed. WENDY note for conservator reviewed. #Behavorial disorder -psych meds restarted -psychiatry consulted # Disposition Difficult placement. Per major case detective no insurance available. [facility] Need to continue efforts by CM and SW to place. WENDY spoke with Daily Sequeira [phone] who states Veronica spoke with SSI and patient' s SSI will be reinstated December 17. WENDY inquired about placement. Daily indicted she will contact various board and cares but could not guarantee she would locate placement due to patient currently not having income. WENDY updated CM. Will continue to follow up. Medically stable for discharge when placement is approved. Subjective Date patient seen: Dec 11, 2018 Allergies: Coded Allergies: RISPERIDONE (Unverified Allergy, Unknown, 07/04/18) ZIPRASIDONE (Verified Allergy, Unknown, 06/30/18) Subjective No acute overnight events, No chest pain or dyspnea, no other complaints, Refused MRI, ambulating, labs reviewed Objective Last 24 Hour Vital Signs Date Time Temp Pulse Resp B/P (MAP) Pulse Ox O2 Delivery O2 Flow Rate FiO2 12/11/18 23:35 97.6 79 17 103/80 (88) 97 12/11/18 21:00 Room Air 12/11/18 20:00 97.4 97 18 101/71 (81) 97 12/11/18 16:00 98.3 69 17 107/63 (78) 97 12/11/18 12:00 97.7 88 18 132/82 (99) 97 12/11/18 09:24 127/87 7/26/19 09:23 91 127/87 12/11/18 09:00 Room Air 12/11/18 09:00 93 12/11/18 08:00 98.3 91 20 127/ (100) 98 Intake and Output 12/10/18 12/11/18 19:00 07:00 Intake Total 472 ml 240 ml Balance 472 ml 240 ml Intake Oral 472 ml 240 ml # Voids 4 # Bowel Movements 1 Height (Feet): 5 Height (Inches): 6.00 Weight (Pounds): 121 Objective General: alert, cooperative, no distress, appears stated age Head: normocephalic, without obvious abnormality, atraumatic Eyes: conjunctivae/corneas clear. PERRL, EOM's intact Throat: lips, mucosa, and tongue normal. MMM Neck: supple, symmetrical, trachea midline, and no JVD Lungs: clear to auscultation bilaterally Heart: regular rate and rhythm, S1, S2 normal, no murmur, click, rub or gallop Abdomen: soft, non-tender, non-distended, bowel sounds normal; no masses or organomegaly Extremities: extremities normal, atraumatic, no cyanosis or edema Pulses: 2+ and symmetric Skin: skin color, texture, turgor normal; no rashes or lesions Neurologic: grossly normal, no focal deficits Anny Cole MD Dec 11, 2018 23:53
--- NOTE | 2018-12-12 02:00 | NUR ---
Pt is still awake after taking sleeping pill last night and asking for another medication. Explain to pt that he had taken already and ask pt to lie down in bed not sitting on the chair in the hallway. Soon after pt lies down in bed. Bed alarm is on for safety for fall precautions measure. Will continue to monitor.
[2018-12-12 04:00] VITALS: BP 109/60
--- NOTE | 2018-12-12 05:00 | NUR ---
NURSE NOTES: pharmacy picking technician came to take blood draw but pt refuses. Explain benefits and risks but does not want to. Respect pt's right. Blood draw has not done. Will continue to monitor.
--- NOTE | 2018-12-12 07:31 | NUR ---
HAND-OFF: Report given to ELLA Gloria. Done rounds.
--- NOTE | 2018-12-12 07:49 | NUR ---
NURSE NOTES: Received report from ELLA Fermin. Rounding done with outgoing nurse. Pt asleep. Bed in lowest position, call light within reach. Will continue to monitor.
[2018-12-12 08:00] VITALS: BP 127/82
[2018-12-12] MEDS: Eliquis 5mg tablet ORAL SCH ×2 (09:29→17:16)
[2018-12-12] MEDS: dilTIAZem HCl CD 120mg cap ORAL SCH (09:29)
[2018-12-12] MEDS: Lisinopril 20mg tab ORAL SCH (09:30)
--- NOTE | 2018-12-12 14:23 | NUR ---
CASE MANAGEMENT:REVIEW 12/12/18 SI: ANEMIA. AFIB W/RVR T 97.2 HR 88 RR 19 B/P 127/82 SATS 97% ON RA NO LABS TODAY IS: DEPAKOTE 500MG PO QD* ZYPREXA 30MG PO QHS* NEURONTIN 100MG PO QHS* REMERON 30MG PO QHS* LISINOPRIL PO QD* SYNTHROID PO QD* CARDIZEM PO QD* LOPRESSOR PO Q12* ELIQUIS PO BID* ATIVAN PO Q4HRS PRN : MED/SURG STATUS 4 EAST DCP: FROM [facility] NAYAK
--- NOTE | 2018-12-12 17:22 | General Progress Note ---
Assessment/Plan Status: stable, unchanged Assessment/Plan: 63 y/o man with hx of paroxysmal atrial fibrillation, presented to the hospital with pre-syncope, found to have rapid atrial fibrillation. # Hypotension - lisinopril stopped #Paroxysmal Atrial Fibrillation #Atrial fibrillation with RVR - Cont beta zack and Diltiazem for rate control - holding parameters. - Cont NOAC.. - echo did not show any remarkable changes - Apprec cardiology recs #Anemia due to chronic illness #Thrombocytopenia - Hgb and platelet count appeared to be at baseline, seen by Hematology, no new changes recommended. Labs stable. #unstable gait -continue PT - PATIENT WILL NEED TO BE WITHOUT FWW in order to return to his [place]. Recommend DC to assisted living facility at [place] per PT final report. Otherwise, will need new placement. construction sales manager follow up is needed. WENDY note for conservator reviewed. #Behavorial disorder -psych meds restarted -psychiatry consulted # Disposition Difficult placement. Per bilingual patient support caseworker no insurance available. [facility] Need to continue efforts by CM and SW to place. WENDY spoke with Daily Sequeira [phone] who states Veronica spoke with SSI and patient' s SSI will be reinstated December 17. WENDY inquired about placement. Daily indicted she will contact various board and cares but could not guarantee she would locate placement due to patient currently not having income. WENDY updated CM. Will continue to follow up. Medically stable for discharge when placement is approved. Subjective Date patient seen: Dec 12, 2018 Allergies: Coded Allergies: RISPERIDONE (Unverified Allergy, Unknown, 07/04/18) ZIPRASIDONE (Verified Allergy, Unknown, 06/30/18) Subjective No acute overnight events, No chest pain or dyspnea, no other complaints, Refused MRI, ambulating, labs reviewed Objective Last 24 Hour Vital Signs Date Time Temp Pulse Resp B/P (MAP) Pulse Ox O2 Delivery O2 Flow Rate FiO2 12/12/18 09:30 127/82 12/12/18 09:29 88 127/82 12/12/18 09:00 Room Air 12/12/18 09:00 92 88 96 12/12/18 08:00 97.2 88 19 127/82 (97) 97 12/12/18 04:00 97.8 74 19 109/60 (76) 96 12/11/18 23:35 97.6 79 17 103/80 (88) 97 12/11/18 21:00 Room Air 12/11/18 20:00 97.4 97 18 101/71 (81) 97 Intake and Output 12/11/18 12/12/18 19:00 07:00 Intake Total 480 ml Output Total 480 ml Balance 0 ml Intake Oral 480 ml Output Urine Total 480 ml # Voids 4 5 Height (Feet): 5 Height (Inches): 6.00 Weight (Pounds): 121 Objective General: alert, cooperative, no distress, appears stated age Head: normocephalic, without obvious abnormality, atraumatic Eyes: conjunctivae/corneas clear. PERRL, EOM's intact Throat: lips, mucosa, and tongue normal. MMM Neck: supple, symmetrical, trachea midline, and no JVD Lungs: clear to auscultation bilaterally Heart: regular rate and rhythm, S1, S2 normal, no murmur, click, rub or gallop Abdomen: soft, non-tender, non-distended, bowel sounds normal; no masses or organomegaly Extremities: extremities normal, atraumatic, no cyanosis or edema Pulses: 2+ and symmetric Skin: skin color, texture, turgor normal; no rashes or lesions Neurologic: grossly normal, no focal deficits Anny Cole MD Dec 12, 2018 17:22
--- NOTE | 2018-12-12 19:26 | NUR ---
HAND-OFF: Report given to ELLA Sullivan.
--- NOTE | 2018-12-12 19:30 | NUR ---
NURSE NOTES: Report taken from ELLA Gloria. patient is awake and ambulating around the unit, stable. No signs of distress on room air. A&Ox3. No skin issues present. No complaints of pain. Likes to be seated outside of room, observe and monitor, patient is very responsive and follows orders. Awaiting approval for transfer back to assisted living facility. Bed in lowest position, call light within reach.
[2018-12-12 20:00] VITALS: BP 106/64
--- NOTE | 2018-12-12 22:02 | Hematology/Onc Progress Note ---
Assessment/Plan Assessment/Plan # Anemia of chronic disease due to underlying chronic medical issues, multifactorial --> Anemia workup has been reviewed. Ferritin 83, TIBC 242 --> No evidence of hemolysis is noted, peripheral smear has been reviewed. --> Hgb goal >7. Transfuse prn. --> Epogen or iron at this time is not particularly indicated --> Medications have been reviewed --> hgb trend 14.1-->12.5--> 12.3-->11-->11.2-->10 # Thrombocytopenia - potential causes multifactorial, evaluate liver and viral etiologies to begin, also could be related to underlying medications patient has received. --> Hep panel and HIV on PRIOR admission was negative --> US abd negative for cirrhosis and hsm --> Peripheral smear ordered to evaluate for blasts/schistocytes, none noted --> abx and other meds have been reviewed (one contributor could be depakote) --> ok for ppx if plt >50k w/ either heparin or lovenox --> Transfuse if Plt < 20k and fever, or if Plt < 10k without fever --> Plt trend 118-->169k-->187k--> 102K->133k-->154k-->182k # FTT with decreased bmi on admission --> began on mirtazapine --> daily weight and monitor # Atelectasis, optimize pulmonary hygiene/mobilize as tolerated --> on cxr appears stable --> per pulm recs # Paroxysmal AFib, per cardiology recs--> on noac --> on eliquis (OK to continue) # Hypertension --> controlled, sbp goal <140 --> per cards # Hypothyroidism --> synthroid po continue # Lactic acidosis --> has resolved # MACARENA, resolved # Placement pending --> rehab, and pt/ot The timing of this note does not necessarily reflect the time of the patient was seen. Greatly appreciate consultation! Subjective Constitutional: Denies: no symptoms, chills, fever, malaise, weakness, other HEENT: Denies: no symptoms, eye pain, blurred vision, tearing, double vision, ear pain, ear discharge, nose pain, nose congestion, throat pain, throat swelling, mouth pain, mouth swelling, other Cardiovascular: Denies: no symptoms, chest pain, edema, irregular heart rate, lightheadedness, palpitations, syncope, other Gastrointestinal/Abdominal: Denies: no symptoms, abdomen distended, abdominal pain, black stools, tarry stools, blood in stool, constipated, diarrhea, difficulty swallowing, nausea, poor appetite, poor fluid intake, rectal bleeding , vomiting, other Neurologic/Psychiatric: Denies: no symptoms, anxiety, depressed, emotional problems, headache, numbness, paresthesia, pre-existing deficit, seizure, tingling, tremors, weakness, other Allergies: Coded Allergies: RISPERIDONE (Unverified Allergy, Unknown, 07/04/18) ZIPRASIDONE (Verified Allergy, Unknown, 06/30/18) Subjective 11/06: Pt resting in bed. No acute distress. DC planning. 11/08: Pt asleep in bed. No acute events. 11/10: Pt stable, no signs of acute distress or SOB. Venous duplex negative. 11/11: Pt resting in bed. Afebrile, no sob. MRI brain pending. 11/12: Pt in bed, sleeping. No respiratory distress noted. DC planning. 11/13: Pt awake and alert, refused morning meds. No signs of SOB or pain observed. Plt count significantly improved overnight. 11/15: Pt denies pain, no complaints of dyspnea 11/17: Pt resting in bed no chest pain or dyspnea, no other complaints 11/18: unable to place picc given do not have consent 11/20: no acute events reported. 11/21: pt refused am labs as well as am meds. h/h stable from prior labs. 11/22: pt no acute distress. Afebrile, VS reviewed. 11/23: no events reported, no f/c noted 11/24: refusing to participate in exam, labs have been reviewed 11/25: eating ensure this am, discharge planning pending, deandre CM 11/26: on noac, continues, no bleeding, hgb is 11.2 11/27: refusing labs this am, discussed with him importance 11/28: resting comfortably, no acute events, no bleeding reported, no night sweats 11/29: no events, no bleeding reported, no night sweats 11/30: no events, no bleeding, no chills, no major night sweats 12/01: getting rehab, pt/ot as needed, no f/c 12/02: walking around the priest with a FWW, says feeling better 12/03: given ativan overnight, feeling better 12/04: awake and alert, no acute events, placement pending 12/05: awake and alert, resting in bed, no acute events. 12/06: anxious and aggravated, vs stable, placement pending per pillowcase maker 12/07: no events to report, no f/c, no night sweats refusing po, will start on mirtazpine 12/08: no events noted, no f/c, no night sweats, no bleeding noted 12/09: no events, eating breakfast, cbc again reordered 12/10: no fevers or chills noted, no bleeding, no events, pending placement 12/11: walking around in hallway, no complaints, eating 12/12: labs reviewed, cbc still refusing in the am Objective Objective Current Medications Medications (Trade) Dose Ordered Sig/Eduardo Route PRN Reason Start Time Stop Time Status Last Admin Dose Admin Acetaminophen (Tylenol) 650 mg Q4H PRN ORAL Mild Pain/Temp > 100.5 12/02/18 01:00 01/01/19 00:59 12/06/18 00:22 Apixaban (Eliquis) 5 mg BID ORAL 12/05/18 15:00 01/04/19 14:59 12/12/18 17:16 Diltiazem HCl (Cardizem CD) 120 mg DAILY ORAL 11/21/18 10:50 12/21/18 10:49 12/12/18 09:29 Gabapentin (Neurontin) 100 mg BEDTIME ORAL 11/18/18 21:00 12/18/18 20:59 12/12/18 20:38 Levothyroxine Sodium (Synthroid) 50 mcg DAILY@0630 ORAL 11/13/18 06:30 12/13/18 06:29 12/11/18 06:11 Lisinopril (Prinivil) 20 mg DAILY ORAL 11/22/18 09:00 12/22/18 08:59 12/12/18 09:30 Mirtazapine (Remeron) 7.5 mg BEDTIME ORAL 12/07/18 21:00 01/06/19 20:59 12/12/18 20:38 Temazepam (Restoril) 15 mg HSPRN PRN ORAL Insomnia 12/10/18 21:00 12/17/18 20:59 12/11/18 21:38 Last 24 Hour Vital Signs Date Time Temp Pulse Resp B/P (MAP) Pulse Ox O2 Delivery O2 Flow Rate FiO2 12/12/18 21:00 Room Air 12/12/18 20:00 97.7 76 18 106/64 (78) 97 12/12/18 09:30 127/82 12/12/18 09:29 88 127/82 12/12/18 09:00 Room Air 12/12/18 09:00 92 88 96 12/12/18 08:00 97.2 88 19 127/82 (97) 97 12/12/18 04:00 97.8 74 19 109/60 (76) 96 12/11/18 23:35 97.6 79 17 103/80 (88) 97 12/11/18 21:00 Room Air 12/11/18 20:00 97.4 97 18 101/71 (81) 97 12/11/18 16:00 98.3 69 17 107/63 (78) 97 12/11/18 12:00 97.7 88 18 132/82 (99) 97 12/11/18 09:24 127/87 12/11/18 09:23 91 127/87 12/11/18 09:00 Room Air 12/11/18 09:00 93 12/11/18 08:00 98.3 91 20 127/87 (100) 98 Intake and Output 12/11/18 12/12/18 19:00 07:00 Intake Total 480 ml Output Total 480 ml Balance 0 ml Intake Oral 480 ml Output Urine Total 480 ml # Voids 4 5 Height (Feet): 5 Height (Inches): 6.00 Weight (Pounds): 121 Objective PHYSICAL EXAMINATION: VITAL SIGNS: Have been reviewed. HEENT: PERRLA. NECK: Supple. No lymphadenopathy. CHEST: Clear to auscultation. CARDIOVASCULAR: Regular rate and rhythm. No murmurs or extra sounds. GASTROINTESTINAL: Soft, nontender, and nondistended. No organomegaly. EXTREMITIES: No edema. Moves all four extremities. NEUROLOGIC: Sensory intact to light touch. Reflexes are equal on both sides. Bennie Goss MD 27, 2019 22:02
[2018-12-13] VITALS: BP 146/73
--- NOTE | 2018-12-13 07:25 | NUR ---
HAND-OFF: Report given to ELLA Figueroa. Patient is asleep, VS stable.
--- NOTE | 2018-12-13 07:30 | NUR ---
NURSE NOTES: Patient lying in bed awake. No complain of pain or distress at this time. No IV site and MD aware. Bed lowest position. Call light within reach. Will continue to monitor.
[2018-12-13 08:00] VITALS: BP 129/81
[2018-12-13] MEDS: Eliquis 5mg tablet ORAL SCH ×2 (09:44→17:14)
[2018-12-13] MEDS: dilTIAZem HCl CD 120mg cap ORAL SCH (09:44)
[2018-12-13] MEDS: Lisinopril 20mg tab ORAL SCH (09:44)
[2018-12-13 12:00] VITALS: BP 111/65
[2018-12-13 16:00] VITALS: BP 119/76
--- NOTE | 2018-12-13 16:37 | NUR ---
CASE MANAGEMENT:REVIEW 12/13/18 SI: ANEMIA. AFIB W/RVR T 97.6 HR 89 RR 18 B/P 129/81 SATS 97% ON RA NO LABS TODAY IS: DEPAKOTE 500MG PO QD* ZYPREXA 30MG PO QHS* NEURONTIN 100MG PO QHS* REMERON 30MG PO QHS* LISINOPRIL PO QD* SYNTHROID PO QD* CARDIZEM PO QD* LOPRESSOR PO Q12* ELIQUIS PO BID* ATIVAN PO Q4HRS PRN : MED/SURG STATUS 4 EAST DCP: FROM NIKKI NAYAK
--- NOTE | 2018-12-13 19:30 | NUR ---
HAND-OFF: Report given to Nate JARAMILLO and Tim JARAMILLO. Patient in stable condition.
[2018-12-13 20:00] VITALS: BP 131/84
--- NOTE | 2018-12-13 20:48 | General Progress Note ---
Assessment/Plan Status: stable, unchanged Assessment/Plan: 63 y/o man with hx of paroxysmal atrial fibrillation, presented to the hospital with pre-syncope, found to have rapid atrial fibrillation. # Hypotension - lisinopril stopped #Paroxysmal Atrial Fibrillation #Atrial fibrillation with RVR - Cont beta zack and Diltiazem for rate control - holding parameters. - Cont NOAC.. - echo did not show any remarkable changes - Apprec cardiology recs #Anemia due to chronic illness #Thrombocytopenia - Hgb and platelet count appeared to be at baseline, seen by Hematology, no new changes recommended. Labs stable. #unstable gait -continue PT - PATIENT WILL NEED TO BE WITHOUT FWW in order to return to his [facility]. Recommend DC to assisted living facility at DC per PT final report. Otherwise, will need new placement. manager subway follow up is needed. WENDY note for conservator reviewed. #Behavorial disorder -psych meds restarted -psychiatry consulted # Disposition Difficult placement. Per bottle caser no insurance available. [facility] notes reported [facility]. Need to continue efforts by CM and SW to place. WENDY spoke with Daily Sequeira [phone] who states Veroniac spoke with SSI and patient' s SSI will be reinstated December 17. WENDY inquired about placement. Daily indicted she will contact various board and cares but could not guarantee she would locate placement due to patient currently not having income. WENDY updated CM. Will continue to follow up. Medically stable for discharge when placement is approved. Subjective Date patient seen: Dec 13, 2018 Allergies: Coded Allergies: RISPERIDONE (Unverified Allergy, Unknown, 07/04/18) ZIPRASIDONE (Verified Allergy, Unknown, 06/30/18) Subjective No acute overnight events, No chest pain or dyspnea, no other complaints, Refused MRI, ambulating, labs reviewed Objective Last 24 Hour Vital Signs Date Time Temp Pulse Resp B/P (MAP) Pulse Ox O2 Delivery O2 Flow Rate FiO2 12/13/18 16:00 98.2 98 18 119/76 (90) 95 12/13/18 12:00 97.6 77 20 111/65 (80) 95 12/13/18 09:44 129/81 12/13/18 09:44 89 129/81 12/13/18 09:00 89 98 121 12/13/18 09:00 Room Air 12/13/18 08:00 97.6 89 18 129/81 (97) 97 12/13/18 00:00 97.8 79 20 146/73 (97) 97 12/12/18 21:00 Room Air Intake and Output 12/12/18 12/13/18 19:00 07:00 Intake Total 400 ml 1450 ml Balance 400 ml 1450 ml Intake Oral 400 ml 1450 ml # Voids 3 4 Height (Feet): 5 Height (Inches): 6.00 Weight (Pounds): 121 Objective General: alert, cooperative, no distress, appears stated age Head: normocephalic, without obvious abnormality, atraumatic Eyes: conjunctivae/corneas clear. PERRL, EOM's intact Throat: lips, mucosa, and tongue normal. MMM Neck: supple, symmetrical, trachea midline, and no JVD Lungs: clear to auscultation bilaterally Heart: regular rate and rhythm, S1, S2 normal, no murmur, click, rub or gallop Abdomen: soft, non-tender, non-distended, bowel sounds normal; no masses or organomegaly Extremities: extremities normal, atraumatic, no cyanosis or edema Pulses: 2+ and symmetric Skin: skin color, texture, turgor normal; no rashes or lesions Neurologic: grossly normal, no focal deficits Anny Cole MD Dec 13, 2018 20:48
[2018-12-13 22:00] VITALS: BP 131/84
--- NOTE | 2018-12-13 22:47 | Neurology Progress Note ---
Interim History Interim History ROS Limited/Unobtainable: No Complaints: Pre-syncope Events: no changes Interim History no acute events Objective Physical Exam Last Vital Signs Date Time Temp Pulse Resp B/P (MAP) Pulse Ox O2 Delivery O2 Flow Rate FiO2 12/13/18 22:00 97.8 99 20 131/84 (100) 98 12/13/18 21:00 Room Air General: well developed, well nourished Head: normocophalic Neck: no rigidity EENT: benign Neurologic Exam Mental Status: awake, alert, oriented x4, normal cognition, good mathematical skills, normal recent memory, normal remote memory, preserved visuospatial function Speech: normal speech, no dysarthia Language: normal language, no aphasia Cranial Nerve II: fundus normal, visual francis, no papilledema Cranial Nerves III, IV, : PERRLA, EOMI, pupils Cranial Nerve V: normal facial sensations, temporales function normal, masseters function normal, pterygoids function normal Cranial Nerve VII: no facial asymmetry, normal facial expressions Cranial Nerve VIII: normal hearing, no nystagmus Cranial Nerve IX: normal palate elevation, gag response Cranial Nerve X: no voice hoarseness Cranial Nerve XI: SCM symmetric, trapezii function normal Cranial Nerve XII: tongue midline, no tongue atrophy/fasciculations Motor System: normal muscle tone, strength 5/5, no involuntary movement, no muscle wasting Sensory: normal pinprick, normal light touch, normal position sense, normal graphesthesia Coordination: normal finger to nose bilaterally, normal heel to ramsay bilaterally, negative Romberg test Deep Tendon Reflexes: 2+ bicep (L), 2+ bicep (R), 2+ tricep (L), 2+ tricep (R) , 2+ brachioradialis (L), 2+ brachioradialis (R), 2+ knee (L), 2+ knee (R), 2+ ankle (L), 2+ ankle (R) Stance: normal Gait: stable, normal regular, heel + toe gait Impression/Recommendations Problems: (1) Anemia (2) Pre-syncope (3) Hyponatremia (4) Dehydration (5) Syncope (6) Parkinsonism (7) HTN (hypertension) (8) Hypothyroid (9) Atrial fibrillation Status: stable, unchanged Diagnostic Impression Parkinsonism stable - trail of sinemet as outpatient once metabolic abnormalities resolve PT OT Cont NOAC will benefit from rehab placement Serjio Sharpe MD Dec 13, 2018 22:47
--- NOTE | 2018-12-14 00:38 | NUR ---
NURSE NOTES: Report taken from ELLA Figueroa. Patient is awake and stable, A&Ox3. No signs of distress on room air. No complaints of pain. Patient is seated outside of room he usually sits in chair, he is ambulatory. No skin issues. No IV site, MD aware and ok. Awaiting placement per CM. Bed in lowest position, call light within reach.
--- NOTE | 2018-12-14 07:32 | NUR ---
HAND-OFF: Report given to ELLA Dailey. VS stable.
--- NOTE | 2018-12-14 07:45 | NUR ---
NURSE NOTES: Received report from Nate JARAMILLO. Patient is asleep during rounds, no acute distress noted, RR even and unlabored. Fall preacutions maintained. Side rails upx3, bed low and locked, call light in reach, bed alarm armed. Will continue to monitor.
[2018-12-14 08:00] VITALS: BP 122/75
--- NOTE | 2018-12-14 09:13 | Hematology/Onc Progress Note ---
Assessment/Plan Assessment/Plan # Anemia of chronic disease due to underlying chronic medical issues, multifactorial --> Anemia workup has been reviewed. Ferritin 83, TIBC 242 --> No evidence of hemolysis is noted, peripheral smear has been reviewed. --> Hgb goal >7. Transfuse prn. --> Epogen or iron at this time is not particularly indicated --> Medications have been reviewed --> hgb trend 14.1-->12.5--> 12.3-->11-->11.2-->10 # Thrombocytopenia - potential causes multifactorial, evaluate liver and viral etiologies to begin, also could be related to underlying medications patient has received. --> Hep panel and HIV on PRIOR admission was negative --> US abd negative for cirrhosis and hsm --> Peripheral smear ordered to evaluate for blasts/schistocytes, none noted --> abx and other meds have been reviewed (one contributor could be depakote) --> ok for ppx if plt >50k w/ either heparin or lovenox --> Transfuse if Plt < 20k and fever, or if Plt < 10k without fever --> Plt trend 118-->169k-->187k--> 102K->133k-->154k-->182k # FTT with decreased bmi on admission --> began on mirtazapine --> daily weight and monitor # Atelectasis, optimize pulmonary hygiene/mobilize as tolerated --> on cxr appears stable --> per pulm recs # Paroxysmal AFib, per cardiology recs--> on noac --> on eliquis (OK to continue) # Hypertension --> controlled, sbp goal <140 --> per cards # Hypothyroidism --> synthroid po continue # Lactic acidosis --> has resolved # MACARENA, resolved # Placement pending --> rehab, and pt/ot The timing of this note does not necessarily reflect the time of the patient was seen. Greatly appreciate consultation! Subjective Constitutional: Denies: no symptoms, chills, fever, malaise, weakness, other HEENT: Denies: no symptoms, eye pain, blurred vision, tearing, double vision, ear pain, ear discharge, nose pain, nose congestion, throat pain, throat swelling, mouth pain, mouth swelling, other Cardiovascular: Denies: no symptoms, chest pain, edema, irregular heart rate, lightheadedness, palpitations, syncope, other Respiratory: Denies: no symptoms, cough, shortness of breath, SOB with excertion, SOB at rest, sputum, wheezing, other Gastrointestinal/Abdominal: Denies: no symptoms, abdomen distended, abdominal pain, black stools, tarry stools, blood in stool, constipated, diarrhea, difficulty swallowing, nausea, poor appetite, poor fluid intake, rectal bleeding , vomiting, other Genitourinary: Denies: no symptoms, burning, discharge, frequency, flank pain, hematuria, incontinence, pain, urgency, other Neurologic/Psychiatric: Denies: no symptoms, anxiety, depressed, emotional problems, headache, numbness, paresthesia, pre-existing deficit, seizure, tingling, tremors, weakness, other Endocrine: Denies: no symptoms, excessive sweating, flushing, intolerance to cold, intolerance to heat, increased hunger, increased thirst, increased urine, unexplained weight gain, unexplained weight loss, other Allergies: Coded Allergies: RISPERIDONE (Unverified Allergy, Unknown, 07/04/18) ZIPRASIDONE (Verified Allergy, Unknown, 06/30/18) Subjective 11/06: Pt resting in bed. No acute distress. DC planning. 11/08: Pt asleep in bed. No acute events. 11/10: Pt stable, no signs of acute distress or SOB. Venous duplex negative. 11/11: Pt resting in bed. Afebrile, no sob. MRI brain pending. 11/12: Pt in bed, sleeping. No respiratory distress noted. DC planning. 11/13: Pt awake and alert, refused morning meds. No signs of SOB or pain observed. Plt count significantly improved overnight. 11/15: Pt denies pain, no complaints of dyspnea 11/17: Pt resting in bed no chest pain or dyspnea, no other complaints 11/18: unable to place picc given do not have consent 11/20: no acute events reported. 11/21: pt refused am labs as well as am meds. h/h stable from prior labs. 11/22: pt no acute distress. Afebrile, VS reviewed. 11/23: no events reported, no f/c noted 11/24: refusing to participate in exam, labs have been reviewed 11/25: eating ensure this am, discharge planning pending, deandre CM 11/26: on noac, continues, no bleeding, hgb is 11.2 11/27: refusing labs this am, discussed with him importance 11/28: resting comfortably, no acute events, no bleeding reported, no night sweats 11/29: no events, no bleeding reported, no night sweats 11/30: no events, no bleeding, no chills, no major night sweats 12/01: getting rehab, pt/ot as needed, no f/c 12/02: walking around the priest with a FWW, says feeling better 12/03: given ativan overnight, feeling better 12/04: awake and alert, no acute events, placement pending 12/05: awake and alert, resting in bed, no acute events. 12/06: anxious and aggravated, vs stable, placement pending per case management manager 12/07: no events to report, no f/c, no night sweats refusing po, will start on mirtazpine 12/08: no events noted, no f/c, no night sweats, no bleeding noted 12/09: no events, eating breakfast, cbc again reordered 12/10: no fevers or chills noted, no bleeding, no events, pending placement 12/11: walking around in hallway, no complaints, eating 12/12: labs reviewed, cbc still refusing in the am 12/13: asleep, still refusing labs, no fc Objective Objective Current Medications Medications (Trade) Dose Ordered Sig/Eduardo Route PRN Reason Start Time Stop Time Status Last Admin Dose Admin Acetaminophen (Tylenol) 650 mg Q4H PRN ORAL Mild Pain/Temp > 100.5 12/02/18 01:00 01/01/19 00:59 12/06/18 00:22 Apixaban (Eliquis) 5 mg BID ORAL 12/05/18 15:00 01/04/19 14:59 12/13/18 17:14 Diltiazem HCl (Cardizem CD) 120 mg DAILY ORAL 11/21/18 10:50 12/21/18 10:49 12/13/18 09:44 Gabapentin (Neurontin) 100 mg BEDTIME ORAL 11/18/18 21:00 12/18/18 20:59 12/13/18 21:01 Lisinopril (Prinivil) 20 mg DAILY ORAL 11/22/18 09:00 12/22/18 08:59 12/13/18 09:44 Mirtazapine (Remeron) 7.5 mg BEDTIME ORAL 12/07/18 21:00 01/06/19 20:59 12/13/18 21:01 Temazepam (Restoril) 15 mg HSPRN PRN ORAL Insomnia 12/10/18 21:00 12/17/18 20:59 12/11/18 21:38 Last 24 Hour Vital Signs Date Time Temp Pulse Resp B/P (MAP) Pulse Ox O2 Delivery O2 Flow Rate FiO2 12/14/18 08:00 97.7 96 20 122/75 (91) 96 12/13/18 22:00 97.8 99 20 131/84 (100) 98 12/13/18 21:00 Room Air 12/13/18 20:00 97.8 98 20 131/84 (100) 98 12/13/18 16:00 98.2 98 18 119/76 (90) 95 12/13/18 12:00 97.6 77 20 111/65 (80) 95 12/13/18 09:44 129/81 12/13/18 09:44 89 129/81 12/13/18 09:00 89 98 121 12/13/18 09:00 Room Air 12/13/18 08:00 97.6 89 18 129/81 (97) 97 12/13/18 00:00 97.8 79 20 146/73 (97) 97 12/12/18 21:00 Room Air 12/12/18 20:00 97.7 76 18 106/64 (78) 97 12/12/18 09:30 127/82 12/12/18 09:29 88 127/82 Intake and Output 12/13/18 12/14/18 19:00 07:00 Intake Total 300 ml 360 ml Balance 300 ml 360 ml Intake Oral 300 ml 360 ml # Voids 3 2 Height (Feet): 5 Height (Inches): 6.00 Weight (Pounds): 121 Objective PHYSICAL EXAMINATION: VITAL SIGNS: Have been reviewed. HEENT: PERRLA. NECK: Supple. No lymphadenopathy. CHEST: Clear to auscultation. CARDIOVASCULAR: Regular rate and rhythm. No murmurs or extra sounds. GASTROINTESTINAL: Soft, nontender, and nondistended. No organomegaly. EXTREMITIES: No edema. Moves all four extremities. NEUROLOGIC: Sensory intact to light touch. Reflexes are equal on both sides. Bennie Goss MD Dec 14, 2018 09:12
[2018-12-14] MEDS: Eliquis 5mg tablet ORAL SCH ×2 (09:25→18:15)
[2018-12-14] MEDS: dilTIAZem HCl CD 120mg cap ORAL SCH (09:25)
[2018-12-14] MEDS: Lisinopril 20mg tab ORAL SCH (09:26)
--- NOTE | 2018-12-14 09:52 | NUR ---
ASE MANAGEMENT:REVIEW 12/14/18 SI: ANEMIA. AFIB W/RVR 97.7 96 20 122/75 96% ON RA IS: RESTORIL PO QHS PRN REMERON PO QHS ELIQUIS PO BID LISINOPRIL PO QD CARDIZEM PO QD NEURONTIN PO QHS : MED/SURG STATUS 4 EAST DCP: FROM NIKKI NAYAK PLAN: PLACEMENT ISSUE D/T PUBLIC GUARDIAN
--- NOTE | 2018-12-14 09:59 | NUR ---
DISCHARGE PLANNING PATIENT DOES NOT HAVE ANY INCOME OR INSURANCE AT THIS TIME PER PUBLIC GUARDIAN PATIENT SHOULD BEGIN RECEIVING A CHECK OF Dec. ONCE MONIES ARE AVAILABLE THEN BOARD AND CARE PLACEMENT WILL BE AN OPTION
--- NOTE | 2018-12-14 10:07 | NUR ---
Social Service Note WENDY spoke with Daily Sequeira [facility] [phone] who states she will follow up with previous referrals. WENDY left a message for Willian nurse Case Manger from the [place] [phone] regarding possible referrals for placement, awaiting return call. WENDY spoke with Antonietta [phone] a residential coordinator who will screen patient this afternoon. Will continue to follow up.
[2018-12-14 12:00] VITALS: BP 141/97
--- NOTE | 2018-12-14 15:55 | NUR ---
*-* INSURANCE *-* UPDATED CLINICALS AND REVIEWS HAVE BEEN FAXED TO: [facility] F:[phone]
[2018-12-14 16:00] VITALS: BP 126/81
--- NOTE | 2018-12-14 19:30 | NUR ---
HAND-OFF: Report given to Liana JARAMILLO. Patient is in stable condition.
--- NOTE | 2018-12-14 19:45 | NUR ---
NURSE NOTES: Pt lying in bed w/bed in lowest position and call light within reach. Pt A&Ox2, VSS, and in no apparent distress. Skin intact and no IV access noted. Pt has no concerns or complaints at this time. Will continue to monitor.
[2018-12-14 20:01] VITALS: BP 117/78
--- NOTE | 2018-12-14 20:14 | General Progress Note ---
Assessment/Plan Status: stable, unchanged Assessment/Plan: 63 y/o man with hx of paroxysmal atrial fibrillation, presented to the hospital with pre-syncope, found to have rapid atrial fibrillation. # Hypotension - lisinopril stopped #Paroxysmal Atrial Fibrillation #Atrial fibrillation with RVR - Cont beta zack and Diltiazem for rate control - holding parameters. - Cont NOAC.. - echo did not show any remarkable changes - Apprec cardiology recs #Anemia due to chronic illness #Thrombocytopenia - Hgb and platelet count appeared to be at baseline, seen by Hematology, no new changes recommended. Labs stable. #unstable gait -continue PT - PATIENT WILL NEED TO BE WITHOUT FWW in order to return to his CUSTODIAL. Recommend DC to assisted living facility at [place] per PT final report. Otherwise, will need new placement. manager pulmonary follow up is needed. WENDY note for conservator reviewed. #Behavorial disorder -psych meds restarted -psychiatry consulted # Disposition Difficult placement. Per director of casework department no insurance available. [facility] Need to continue efforts by CM and SW to place. WENDY spoke with Daily Sequeira [phone] who states Veronica spoke with SSI and patient' s SSI will be reinstated December 17. WENDY inquired about placement. Daily indicted she will contact various board and cares but could not guarantee she would locate placement due to patient currently not having income. WENDY updated CM. Will continue to follow up. Medically stable for discharge when placement is approved. Subjective Date patient seen: Dec 14, 2018 Allergies: Coded Allergies: RISPERIDONE (Unverified Allergy, Unknown, 07/04/18) ZIPRASIDONE (Verified Allergy, Unknown, 06/30/18) Subjective No acute overnight events, No chest pain or dyspnea, no other complaints, Refused MRI, ambulating, labs reviewed Objective Last 24 Hour Vital Signs Date Time Temp Pulse Resp B/P (MAP) Pulse Ox O2 Delivery O2 Flow Rate FiO2 12/14/18 20:01 97.7 100 18 117/78 (91) 98 12/14/18 16:00 98.1 93 20 126/81 (96) 94 12/14/18 12:00 97.2 106 18 141/97 (112) 96 12/14/18 09:26 122/75 12/14/18 09:25 96 122/75 12/14/18 09:00 Room Air 12/14/18 08:00 97.7 96 20 122/75 (91) 96 12/13/18 22:00 97.8 99 20 131/84 (100) 98 12/13/18 21:00 Room Air Intake and Output 12/13/18 12/14/18 19:00 07:00 Intake Total 300 ml 360 ml Balance 300 ml 360 ml Intake Oral 300 ml 360 ml # Voids 3 2 Height (Feet): 5 Height (Inches): 6.00 Weight (Pounds): 121 Objective General: alert, cooperative, no distress, appears stated age Head: normocephalic, without obvious abnormality, atraumatic Eyes: conjunctivae/corneas clear. PERRL, EOM's intact Throat: lips, mucosa, and tongue normal. MMM Neck: supple, symmetrical, trachea midline, and no JVD Lungs: clear to auscultation bilaterally Heart: regular rate and rhythm, S1, S2 normal, no murmur, click, rub or gallop Abdomen: soft, non-tender, non-distended, bowel sounds normal; no masses or organomegaly Extremities: extremities normal, atraumatic, no cyanosis or edema Pulses: 2+ and symmetric Skin: skin color, texture, turgor normal; no rashes or lesions Neurologic: grossly normal, no focal deficits Anny Cole MD Dec 14, 2018 20:14
--- NOTE | 2018-12-14 22:09 | Neurology Progress Note ---
Interim History Interim History ROS Limited/Unobtainable: No Complaints: Pre-syncope Events: no changes Interim History not agitated Review of Systems All Systems: reviewed and negative except above Objective Physical Exam Last Vital Signs Date Time Temp Pulse Resp B/P (MAP) Pulse Ox O2 Delivery O2 Flow Rate FiO2 12/14/18 20:01 97.7 100 18 117/78 (91) 98 12/14/18 09:00 Room Air General: well developed, well nourished Head: normocophalic Neck: no rigidity EENT: benign Neurologic Exam Mental Status: awake, alert, oriented x4, normal cognition, good mathematical skills, normal recent memory, normal remote memory, preserved visuospatial function Speech: normal speech, no dysarthia Language: normal language, no aphasia Cranial Nerve II: fundus normal, visual francis, no papilledema Cranial Nerves III, IV, : PERRLA, EOMI, pupils Cranial Nerve V: normal facial sensations, temporales function normal, masseters function normal, pterygoids function normal Cranial Nerve VII: no facial asymmetry, normal facial expressions Cranial Nerve VIII: normal hearing, no nystagmus Cranial Nerve IX: normal palate elevation, gag response Cranial Nerve X: no voice hoarseness Cranial Nerve XI: SCM symmetric, trapezii function normal Cranial Nerve XII: tongue midline, no tongue atrophy/fasciculations Motor System: normal muscle tone, strength 5/5, no involuntary movement, no muscle wasting Sensory: normal pinprick, normal light touch, normal position sense, normal graphesthesia Coordination: normal finger to nose bilaterally, normal heel to ramsay bilaterally, negative Romberg test Deep Tendon Reflexes: 2+ bicep (L), 2+ bicep (R), 2+ tricep (L), 2+ tricep (R) , 2+ brachioradialis (L), 2+ brachioradialis (R), 2+ knee (L), 2+ knee (R), 2+ ankle (L), 2+ ankle (R) Stance: normal Gait: stable, normal regular, heel + toe gait Impression/Recommendations Problems: (1) Anemia (2) Pre-syncope (3) Hyponatremia (4) Dehydration (5) Syncope (6) Parkinsonism (7) HTN (hypertension) (8) Hypothyroid (9) Atrial fibrillation Status: stable, unchanged Diagnostic Impression Parkinsonism stable - trail of sinemet as outpatient once metabolic abnormalities resolve PT OT Cont NOAC will benefit from rehab placement Serjio Sharpe MD Dec 14, 2018 22:09
[2018-12-15 00:19] VITALS: BP 127/77
--- NOTE | 2018-12-15 07:40 | NUR ---
NURSE NOTES: WALKING ROUNDS DONE OUTGOING RN. PATIENT ASLEEP. BED IN LOWEST AND LOCKED POSITION.CALL LIGHT WITHIN REACH.
--- NOTE | 2018-12-15 07:42 | NUR ---
HAND-OFF: Report given to ELLA Garnett.
--- NOTE | 2018-12-15 09:34 | NUR ---
NURSE NOTES: PATIENT REFUSED PATIENT CARE,VITALS AND AM MEDS. STATES HE DOES NOT WANT IT RIGHT NOW. WILL RE-ATTEMPT. DR. HOLMAN NOTIFIED.
--- NOTE | 2018-12-15 10:15 | Hematology/Onc Progress Note ---
Assessment/Plan Assessment/Plan # Anemia of chronic disease due to underlying chronic medical issues, multifactorial --> Anemia workup has been reviewed. Ferritin 83, TIBC 242 --> No evidence of hemolysis is noted, peripheral smear has been reviewed. --> Hgb goal >7. Transfuse prn. --> Epogen or iron at this time is not particularly indicated --> Medications have been reviewed --> hgb trend 14.1-->12.5--> 12.3-->11-->11.2-->10 # Thrombocytopenia - potential causes multifactorial, evaluate liver and viral etiologies to begin, also could be related to underlying medications patient has received. --> Hep panel and HIV on PRIOR admission was negative --> US abd negative for cirrhosis and hsm --> Peripheral smear ordered to evaluate for blasts/schistocytes, none noted --> abx and other meds have been reviewed (one contributor could be depakote) --> ok for ppx if plt >50k w/ either heparin or lovenox --> Transfuse if Plt < 20k and fever, or if Plt < 10k without fever --> Plt trend 118-->169k-->187k--> 102K->133k-->154k-->182k # FTT with decreased bmi on admission --> began on mirtazapine --> daily weight and monitor # Atelectasis, optimize pulmonary hygiene/mobilize as tolerated --> on cxr appears stable --> per pulm recs # Paroxysmal AFib, per cardiology recs--> on noac --> on eliquis (ok to continue) # Hypertension --> controlled, sbp goal <140 --> per cards # Hypothyroidism --> synthroid po to continue # Lactic acidosis --> has resolved # MACARENA which has resolved # Placement pending --> rehab, and pt/ot The timing of this note does not necessarily reflect the time of the patient was seen. Greatly appreciate consultation! Subjective Constitutional: Denies: no symptoms, chills, fever, malaise, weakness, other Cardiovascular: Denies: no symptoms, chest pain, edema, irregular heart rate, lightheadedness, palpitations, syncope, other Gastrointestinal/Abdominal: Denies: no symptoms, abdomen distended, abdominal pain, black stools, tarry stools, blood in stool, constipated, diarrhea, difficulty swallowing, nausea, poor appetite, poor fluid intake, rectal bleeding , vomiting, other Genitourinary: Denies: no symptoms, burning, discharge, frequency, flank pain, hematuria, incontinence, pain, urgency, other Endocrine: Denies: no symptoms, excessive sweating, flushing, intolerance to cold, intolerance to heat, increased hunger, increased thirst, increased urine, unexplained weight gain, unexplained weight loss, other Hematologic/Lymphatic: Denies: no symptoms, anemia, easy bleeding, easy bruising, adenopathy, other Allergies: Coded Allergies: RISPERIDONE (Unverified Allergy, Unknown, 07/04/18) ZIPRASIDONE (Verified Allergy, Unknown, 06/30/18) Subjective 11/06: Pt resting in bed. No acute distress. DC planning. 11/08: Pt asleep in bed. No acute events. 11/10: Pt stable, no signs of acute distress or SOB. Venous duplex negative. 11/11: Pt resting in bed. Afebrile, no sob. MRI brain pending. 11/12: Pt in bed, sleeping. No respiratory distress noted. DC planning. 11/13: Pt awake and alert, refused morning meds. No signs of SOB or pain observed. Plt count significantly improved overnight. 11/15: Pt denies pain, no complaints of dyspnea 11/17: Pt resting in bed no chest pain or dyspnea, no other complaints 11/18: unable to place picc given do not have consent 11/20: no acute events reported. 11/21: pt refused am labs as well as am meds. h/h stable from prior labs. 11/22: pt no acute distress. Afebrile, VS reviewed. 11/23: no events reported, no f/c noted 11/24: refusing to participate in exam, labs have been reviewed 11/25: eating ensure this am, discharge planning pending, dw CM 11/26: on noac, continues, no bleeding, hgb is 11.2 11/27: refusing labs this am, discussed with him importance 11/28: resting comfortably, no acute events, no bleeding reported, no night sweats 11/29: no events, no bleeding reported, no night sweats 11/30: no events, no bleeding, no chills, no major night sweats 12/01: getting rehab, pt/ot as needed, no f/c 12/02: walking around the priest with a FWW, says feeling better 12/03: given ativan overnight, feeling better 12/04: awake and alert, no acute events, placement pending 12/05: awake and alert, resting in bed, no acute events. 12/06: anxious and aggravated, vs stable, placement pending per insurance case manager 12/07: no events to report, no f/c, no night sweats refusing po, will start on mirtazpine 12/08: no events noted, no f/c, no night sweats, no bleeding noted 12/09: no events, eating breakfast, cbc again reordered 12/10: no fevers or chills noted, no bleeding, no events, pending placement 12/11: walking around in hallway, no complaints, eating 12/12: labs reviewed, cbc still refusing in the am 12/13: asleep, still refusing labs, no fc 12/14: no events noted, no bleeding, no fc 12/15: not agitated, sinemet has been started per neuro Objective Objective Current Medications Medications (Trade) Dose Ordered Sig/Eduardo Route PRN Reason Start Time Stop Time Status Last Admin Dose Admin Acetaminophen (Tylenol) 650 mg Q4H PRN ORAL Mild Pain/Temp > 100.5 12/02/18 01:00 01/01/19 00:59 12/06/18 00:22 Apixaban (Eliquis) 5 mg BID ORAL 12/05/18 15:00 01/04/19 14:59 12/14/18 18:15 Diltiazem HCl (Cardizem CD) 120 mg DAILY ORAL 11/21/18 10:50 12/21/18 10:49 12/14/18 09:25 Gabapentin (Neurontin) 100 mg BEDTIME ORAL 11/18/18 21:00 12/18/18 20:59 12/14/18 21:04 Lisinopril (Prinivil) 20 mg DAILY ORAL 11/22/18 09:00 12/22/18 08:59 12/14/18 09:26 Mirtazapine (Remeron) 7.5 mg BEDTIME ORAL 12/07/18 21:00 01/06/19 20:59 12/14/18 21:04 Temazepam (Restoril) 15 mg HSPRN PRN ORAL Insomnia 12/10/18 21:00 12/17/18 20:59 12/11/18 21:38 Last 24 Hour Vital Signs Date Time Temp Pulse Resp B/P (MAP) Pulse Ox O2 Delivery O2 Flow Rate FiO2 12/15/18 00:19 98.0 91 16 127/77 (94) 97 12/14/18 21:00 Room Air 12/14/18 20:01 97.7 100 18 117/78 (91) 98 12/14/18 16:00 98.1 93 20 126/81 (96) 94 12/14/18 12:00 97.2 106 18 141/97 (112) 96 12/14/18 09:26 122/75 12/14/18 09:25 96 122/75 12/14/18 09:00 Room Air 12/14/18 08:00 97.7 96 20 122/75 (91) 96 12/13/18 22:00 97.8 99 20 131/84 (100) 98 12/13/18 21:00 Room Air 12/13/18 20:00 97.8 98 20 131/84 (100) 98 12/13/18 16:00 98.2 98 18 119/76 (90) 95 12/13/18 12:00 97.6 77 20 111/65 (80) 95 Intake and Output 12/14/18 12/15/18 19:00 07:00 Intake Total 550 ml 240 ml Balance 550 ml 240 ml Intake Oral 550 ml 240 ml # Voids 3 3 Height (Feet): 5 Height (Inches): 6.00 Weight (Pounds): 121 Objective PHYSICAL EXAMINATION: VITAL SIGNS: Have been reviewed. HEENT: PERRLA. NECK: Supple. No lymphadenopathy. CHEST: Clear to auscultation. CARDIOVASCULAR: Regular rate and rhythm. No murmurs or extra sounds. GASTROINTESTINAL: Soft, nontender, and nondistended. No organomegaly. EXTREMITIES: No edema. Moves all four extremities. NEUROLOGIC: Sensory intact to light touch. Reflexes are equal on both sides. Bennie Goss MD Dec 15, 2018 10:15
[2018-12-15] MEDS: Lisinopril 20mg tab ORAL SCH (11:14)
[2018-12-15] MEDS: Eliquis 5mg tablet ORAL SCH ×2 (11:14→18:32)
[2018-12-15] MEDS: dilTIAZem HCl CD 120mg cap ORAL SCH (11:14)
--- NOTE | 2018-12-15 11:28 | NUR ---
Social Service Note SW referred patient to the following board and cares: [facility] [phone] (p) [phone] (f) Unable to accept due to age. [facility] [phone] unable to accept patient conserved by public guardian. [facility] [phone] (p) [phone] (f) [facility] [phone] (p) [phone] (f) [facility] [phone] doesn't have a bed in [facility] unit [facility] [phone] (p) [phone] (f) Antonietta will be out today to evaluate patient [phone]. Will continue to follow up Addendum: 12/15/18 at 1221 by VEE COMER WENDY met with Kimberly at [facility] [phone] who is willing to accept patient. Message left for Public Guardian Daily Sequeira [phone] to coordinate impending dc planning.
[2018-12-15 11:37] VITALS: BP 125/87
--- NOTE | 2018-12-15 13:14 | NUR ---
RD ASSESSMENT & RECOMMENDATIONS SEE CARE ACTIVITY FOR COMPLETE ASSESSMENT DAILY ESTIMATED NEEDS: Needs based on cardiac, possible wt loss/ 49kg 30-35 kcals/kg 8447-0690 total kcals 1-1.5 g protein/kg 49-74 g total protein 25-30 mL/kg 1390-1324 total fluid mLs NUTRITION DIAGNOSIS: Increased kcal/prot intake needs R/T wt loss as evidenced by pt w/ possible significant wt loss of 23lbs/17.5% in 4 months, poor PO intake upon adm, now w/ possible wt gain since adm w/ improved PO intake CURRENT DIET:REGULAR + Ensure Enlive TID w/ meals PO DIET RECOMMENDATIONS: Maintain liberalized REGULAR diet ADDITIONAL RECOMMENDATIONS: * Calibrated bedscale wt or standing wt of accurate CBW * Weekly wt monitoring given possible h/o wt loss * Ensure Enlive MAXIMUM 4-5x daily (350kcal/20g prot per bottle) -> pt asking for 2-3 bottles of Ensure Enlive each meal * Updated CBC and BMP as able * Vit D 1000IU daily (low Vit D25=29) * Encourage intake of meal trays- pt mostly drinking Ensure and not meals
--- NOTE | 2018-12-15 13:17 | NUR ---
CASE MANAGEMENT:REVIEW 12/15/18 SI: ANEMIA. AFIB W/RVR 97.7 96 20 122/75 96% ON RA IS: RESTORIL PO QHS PRN REMERON PO QHS ELIQUIS PO BID LISINOPRIL PO QD CARDIZEM PO QD NEURONTIN PO QHS : MED/SURG STATUS 4 EAST DCP: FROM [facility] PLAN: SEEKING NEW BOARD CARE FOR PATIENT WILL DISCHARGE SOON PUBLIC GUARDIAN RELEASES MONEY
--- NOTE | 2018-12-15 15:27 | NUR ---
*-* INSURANCE *-* UPDATED CLINICALS AND REVIEWS HAVE BEEN FAXED TO: [facility] F:[phone]
--- NOTE | 2018-12-15 18:36 | General Progress Note ---
Assessment/Plan Status: stable, unchanged Assessment/Plan: 63 y/o man with hx of paroxysmal atrial fibrillation, presented to the hospital with pre-syncope, found to have rapid atrial fibrillation. # Hypotension - lisinopril stopped #Paroxysmal Atrial Fibrillation #Atrial fibrillation with RVR - Cont beta zack and Diltiazem for rate control - holding parameters. - Cont NOAC.. - echo did not show any remarkable changes - Apprec cardiology recs #Anemia due to chronic illness #Thrombocytopenia - Hgb and platelet count appeared to be at baseline, seen by Hematology, no new changes recommended. Labs stable. #unstable gait -continue PT - PATIENT WILL NEED TO BE WITHOUT FWW in order to return to his JAIL. Recommend DC to assisted living facility at [place] per PT final report. Otherwise, will need new placement. stallion manager follow up is needed. WENDY note for conservator reviewed. #Behavorial disorder -psych meds restarted -psychiatry consulted # Disposition Difficult placement. Per lining caser no insurance available. [facility]. Need to continue efforts by CM and SW to place. WENDY spoke with Daily Sequeira [phone] who states Veronica spoke with SSI and patient' s SSI will be reinstated December 17. WENDY inquired about placement. Daily indicted she will contact various board and cares but could not guarantee she would locate placement due to patient currently not having income. WENDY updated CM. Will continue to follow up. Medically stable for discharge when placement is approved. Subjective Date patient seen: Dec 15, 2018 Allergies: Coded Allergies: RISPERIDONE (Unverified Allergy, Unknown, 07/04/18) ZIPRASIDONE (Verified Allergy, Unknown, 06/30/18) Subjective No acute overnight events, No chest pain or dyspnea, no other complaints, Refused MRI, ambulating, labs reviewed Objective Last 24 Hour Vital Signs Date Time Temp Pulse Resp B/P (MAP) Pulse Ox O2 Delivery O2 Flow Rate FiO2 12/15/18 11:37 97.6 88 17 125/87 (100) 95 12/15/18 11:14 125/82 12/15/18 11:14 88 125/82 12/15/18 09:00 Room Air 12/15/18 00:19 98.0 91 16 127/77 (94) 97 12/14/18 21:00 Room Air 12/14/18 20:01 97.7 100 18 117/78 (91) 98 Intake and Output 12/14/18 12/15/18 18:59 06:59 Intake Total 550 ml 240 ml Balance 550 ml 240 ml Intake Oral 550 ml 240 ml # Voids 3 3 Height (Feet): 5 Height (Inches): 6.00 Weight (Pounds): 121 Objective General: alert, cooperative, no distress, appears stated age Head: normocephalic, without obvious abnormality, atraumatic Eyes: conjunctivae/corneas clear. PERRL, EOM's intact Throat: lips, mucosa, and tongue normal. MMM Neck: supple, symmetrical, trachea midline, and no JVD Lungs: clear to auscultation bilaterally Heart: regular rate and rhythm, S1, S2 normal, no murmur, click, rub or gallop Abdomen: soft, non-tender, non-distended, bowel sounds normal; no masses or organomegaly Extremities: extremities normal, atraumatic, no cyanosis or edema Pulses: 2+ and symmetric Skin: skin color, texture, turgor normal; no rashes or lesions Neurologic: grossly normal, no focal deficits Anny Cole MD Dec 15, 2018 18:36
--- NOTE | 2018-12-15 18:40 | NUR ---
NURSE NOTES: UNEVENTFUL DAY. PATIENT REMAINS STABLE. WAITING FOR PLACEMENT. MORE COMPLIANT WITH TAKING MEDS LATER TODAY. AMBULATING INDEPENDENTLY. GAIT STEADY.VSS. AFEBRILE.
--- NOTE | 2018-12-15 19:43 | NUR ---
HAND-OFF: Report given to ADELA GARCIA LVN.
--- NOTE | 2018-12-15 19:43 | NUR ---
NURSE NOTES:Patient received from Chelo Coles Patient A/A/0X3 forgetful . Patient denies any pain at this time . no s/s of distress noted . Patient no IV access MD aware. Patient ambulated to bathroom . Patient instructed to uses the the call light when needed and patient verbalized his understanding . fall /safety precautions. call light within reach . bed in low position at all times . bed alarm on .
[2018-12-15 20:00] VITALS: BP 92/66
--- NOTE | 2018-12-15 21:04 | Neurology Progress Note ---
Interim History Interim History ROS Limited/Unobtainable: No Complaints: Pre-syncope Events: no changes Interim History no acute events Review of Systems All Systems: reviewed and negative except above Objective Physical Exam Last Vital Signs Date Time Temp Pulse Resp B/P (MAP) Pulse Ox O2 Delivery O2 Flow Rate FiO2 12/15/18 11:37 97.6 88 17 125/87 (100) 95 12/15/18 09:00 Room Air General: well developed, well nourished Head: normocophalic Neck: no rigidity EENT: benign Neurologic Exam Mental Status: awake, alert, oriented x4, normal cognition, good mathematical skills, normal recent memory, normal remote memory, preserved visuospatial function Speech: normal speech, no dysarthia Language: normal language, no aphasia Cranial Nerve II: fundus normal, visual francis, no papilledema Cranial Nerves III, IV, : PERRLA, EOMI, pupils Cranial Nerve V: normal facial sensations, temporales function normal, masseters function normal, pterygoids function normal Cranial Nerve VII: no facial asymmetry, normal facial expressions Cranial Nerve VIII: normal hearing, no nystagmus Cranial Nerve IX: normal palate elevation, gag response Cranial Nerve X: no voice hoarseness Cranial Nerve XI: SCM symmetric, trapezii function normal Cranial Nerve XII: tongue midline, no tongue atrophy/fasciculations Motor System: normal muscle tone, strength 5/5, no involuntary movement, no muscle wasting Sensory: normal pinprick, normal light touch, normal position sense, normal graphesthesia Coordination: normal finger to nose bilaterally, normal heel to ramsay bilaterally, negative Romberg test Deep Tendon Reflexes: 2+ bicep (L), 2+ bicep (R), 2+ tricep (L), 2+ tricep (R) , 2+ brachioradialis (L), 2+ brachioradialis (R), 2+ knee (L), 2+ knee (R), 2+ ankle (L), 2+ ankle (R) Stance: normal Gait: stable, normal regular, heel + toe gait Impression/Recommendations Problems: (1) Anemia (2) Pre-syncope (3) Hyponatremia (4) Dehydration (5) Syncope (6) Parkinsonism (7) HTN (hypertension) (8) Hypothyroid (9) Atrial fibrillation Status: stable, unchanged Diagnostic Impression Parkinsonism stable - trail of sinemet as outpatient once metabolic abnormalities resolve PT OT Cont NOAC will benefit from rehab placement Serjio Sharpe MD Dec 15, 2018 21:04
[2018-12-16] VITALS: BP 105/64
[2018-12-16 04:00] VITALS: BP 99/68
--- NOTE | 2018-12-16 07:20 | NUR ---
NURSE NOTES: WALKING ROUNDS DONE WITH OUTGOING RN. PATIENT AWAKE AND AMBULATING IN ROOM; GAIT STEADY.DISCUSSED PLAN OF CARE FOR THE DAY.VERBALIZED UNDERSTANDING. DENIES PAIN/ DIZZINESS. QUESTIONS ANSWERED, NEEDS MET AT THIS TIME.
[2018-12-16 08:00] VITALS: BP 91/57
[2018-12-16 10:54] VITALS: BP 106/76
[2018-12-16] MEDS: dilTIAZem HCl CD 120mg cap ORAL SCH (10:57)
[2018-12-16] MEDS: Lisinopril 20mg tab ORAL SCH (10:58)
[2018-12-16] MEDS: Eliquis 5mg tablet ORAL SCH ×2 (10:58→18:18)
[2018-12-16 12:00] VITALS: BP 118/74
--- NOTE | 2018-12-16 13:07 | NUR ---
CASE MANAGEMENT:REVIEW 12/16/18 SI: ANEMIA. AFIB W/RVR 97.4 85 16 118/74 98% ON RA IS: RESTORIL PO QHS PRN REMERON PO QHS ELIQUIS PO BID LISINOPRIL PO QD CARDIZEM PO QD NEURONTIN PO QHS : MED/SURG STATUS 4 EAST DCP: FROM [facility] PLAN: SEEKING NEW BOARD CARE FOR PATIENT WILL DISCHARGE SOON PUBLIC GUARDIAN RELEASES MONEY
--- NOTE | 2018-12-16 14:28 | NUR ---
*-* INSURANCE *-* UPDATED CLINICALS AND REVIEWS HAVE BEEN FAXED TO: [facility] F:[phone]
--- NOTE | 2018-12-16 14:40 | NUR ---
Social Service Note WENDY spoke with Daily Sequeira [facility] regarding placement. [facility] is requesting for WENDY to contact [facility] [phone] and speak with Marissa regarding acceptance. WENDY spoke with Marissa who states the facility will require an assessment and she will need to discuss with revenue settlements administrator when this could be arranged. Marissa will contact WENDY by the end of the day. WENDY explained to [facility] patient accepted at [facility], however [facility] would like an answer from [facility]. Addendum: 12/16/18 at 1732 by VEE COMER [facility] will be out tomorrow to complete assessment. Will continue to follow up.
--- NOTE | 2018-12-16 15:00 | Hematology/Onc Progress Note ---
Assessment/Plan Assessment/Plan # Anemia of chronic disease due to underlying chronic medical issues, multifactorial --> Anemia workup has been reviewed. Ferritin 83, TIBC 242 --> No evidence of hemolysis is noted, peripheral smear has been reviewed. --> Hgb goal >7. Transfuse prn. --> Epogen or iron at this time is not particularly indicated --> Medications have been reviewed --> hgb trend 14.1-->12.5--> 12.3-->11-->11.2-->10 # Thrombocytopenia - potential causes multifactorial, evaluate liver and viral etiologies to begin, also could be related to underlying medications patient has received. --> Hep panel and HIV on PRIOR admission was negative --> US abd negative for cirrhosis and hsm --> Peripheral smear ordered to evaluate for blasts/schistocytes, none noted --> abx and other meds have been reviewed (one contributor could be depakote) --> ok for ppx if plt >50k w/ either heparin or lovenox --> Plt trend 118-->169k-->187k--> 102K->133k-->154k-->182k # FTT with decreased bmi on admission --> began on mirtazapine --> daily weight and monitor # Atelectasis, optimize pulmonary hygiene/mobilize as tolerated --> on cxr appears stable --> per pulm recs # Paroxysmal AFib, per cardiology recs--> on noac --> on eliquis (ok to continue) # Hypertension --> controlled, sbp goal <140 --> per cards # Hypothyroidism --> synthroid po to continue # Lactic acidosis --> has resolved # MACARENA which has resolved # Placement pending --> rehab, and pt/ot The timing of this note does not necessarily reflect the time of the patient was seen. Greatly appreciate consultation! Subjective Cardiovascular: Denies: no symptoms, chest pain, edema, irregular heart rate, lightheadedness, palpitations, syncope, other Respiratory: Denies: no symptoms, cough, shortness of breath, SOB with excertion, SOB at rest, sputum, wheezing, other Gastrointestinal/Abdominal: Denies: no symptoms, abdomen distended, abdominal pain, black stools, tarry stools, blood in stool, constipated, diarrhea, difficulty swallowing, nausea, poor appetite, poor fluid intake, rectal bleeding , vomiting, other Genitourinary: Denies: no symptoms, burning, discharge, frequency, flank pain, hematuria, incontinence, pain, urgency, other Neurologic/Psychiatric: Denies: no symptoms, anxiety, depressed, emotional problems, headache, numbness, paresthesia, pre-existing deficit, seizure, tingling, tremors, weakness, other Endocrine: Denies: no symptoms, excessive sweating, flushing, intolerance to cold, intolerance to heat, increased hunger, increased thirst, increased urine, unexplained weight gain, unexplained weight loss, other Hematologic/Lymphatic: Denies: no symptoms, anemia, easy bleeding, easy bruising, adenopathy, other Allergies: Coded Allergies: RISPERIDONE (Unverified Allergy, Unknown, 07/04/18) ZIPRASIDONE (Verified Allergy, Unknown, 06/30/18) Subjective 11/06: Pt resting in bed. No acute distress. DC planning. 11/08: Pt asleep in bed. No acute events. 11/10: Pt stable, no signs of acute distress or SOB. Venous duplex negative. 11/11: Pt resting in bed. Afebrile, no sob. MRI brain pending. 11/12: Pt in bed, sleeping. No respiratory distress noted. DC planning. 11/13: Pt awake and alert, refused morning meds. No signs of SOB or pain observed. Plt count significantly improved overnight. 11/15: Pt denies pain, no complaints of dyspnea 11/17: Pt resting in bed no chest pain or dyspnea, no other complaints 11/18: unable to place picc given do not have consent 11/20: no acute events reported. 11/21: pt refused am labs as well as am meds. h/h stable from prior labs. 11/22: pt no acute distress. Afebrile, VS reviewed. 11/23: no events reported, no f/c noted 11/24: refusing to participate in exam, labs have been reviewed 11/25: eating ensure this am, discharge planning pending, dw CM 11/26: on noac, continues, no bleeding, hgb is 11.2 11/27: refusing labs this am, discussed with him importance 11/28: resting comfortably, no acute events, no bleeding reported, no night sweats 11/29: no events, no bleeding reported, no night sweats 11/30: no events, no bleeding, no chills, no major night sweats 12/01: getting rehab, pt/ot as needed, no f/c 12/02: walking around the priest with a FWW, says feeling better 12/03: given ativan overnight, feeling better 12/04: awake and alert, no acute events, placement pending 12/05: awake and alert, resting in bed, no acute events. 12/06: anxious and aggravated, vs stable, placement pending per casework specialist 12/07: no events to report, no f/c, no night sweats refusing po, will start on mirtazpine 12/08: no events noted, no f/c, no night sweats, no bleeding noted 12/09: no events, eating breakfast, cbc again reordered 12/10: no fevers or chills noted, no bleeding, no events, pending placement 12/11: walking around in hallway, no complaints, eating 12/12: labs reviewed, cbc still refusing in the am 12/13: asleep, still refusing labs, no fc 12/14: no events noted, no bleeding, no fc 12/15: not agitated, sinemet has been started per neuro 12/16: dc when public guardian raises money Objective Objective Current Medications Medications (Trade) Dose Ordered Sig/Eduardo Route PRN Reason Start Time Stop Time Status Last Admin Dose Admin Acetaminophen (Tylenol) 650 mg Q4H PRN ORAL Mild Pain/Temp > 100.5 12/02/18 01:00 01/01/19 00:59 12/06/18 00:22 Apixaban (Eliquis) 5 mg BID ORAL 12/05/18 15:00 01/04/19 14:59 12/16/18 10:58 Diltiazem HCl (Cardizem CD) 120 mg DAILY ORAL 11/21/18 10:50 12/21/18 10:49 12/16/18 10:57 Gabapentin (Neurontin) 100 mg BEDTIME ORAL 11/18/18 21:00 12/18/18 20:59 12/15/18 20:44 Lisinopril (Prinivil) 20 mg DAILY ORAL 11/22/18 09:00 12/22/18 08:59 12/16/18 10:58 Mirtazapine (Remeron) 7.5 mg BEDTIME ORAL 12/07/18 21:00 01/06/19 20:59 12/15/18 20:44 Temazepam (Restoril) 15 mg HSPRN PRN ORAL Insomnia 12/10/18 21:00 12/17/18 20:59 12/11/18 21:38 Last 24 Hour Vital Signs Date Time Temp Pulse Resp B/P (MAP) Pulse Ox O2 Delivery O2 Flow Rate FiO2 12/16/18 12:00 97.4 85 16 118/74 (89) 98 12/16/18 10:58 106/76 12/16/18 10:57 80 106/76 12/16/18 10:54 80 20 106/76 (86) 97 12/16/18 09:00 Room Air 12/16/18 08:00 98.1 93 17 91/57 (68) 97 12/16/18 04:00 97.6 80 18 99/68 (78) 97 12/16/18 00:00 98.2 82 18 105/64 (78) 95 12/15/18 21:00 Room Air 12/15/18 20:00 97.6 75 18 92/66 (75) 99 12/15/18 11:37 97.6 88 17 125/87 (100) 95 12/15/18 11:14 125/82 12/15/18 11:14 88 125/82 12/15/18 09:00 Room Air 12/15/18 00:19 98.0 91 16 127/77 (94) 97 12/14/18 21:00 Room Air 12/14/18 20:01 97.7 100 18 117/78 (91) 98 12/14/18 16:00 98.1 93 20 126/81 (96) 94 Intake and Output 12/15/18 12/16/18 19:00 07:00 Intake Total 900 ml 1000 ml Balance 900 ml 1000 ml Intake Oral 900 ml 1000 ml # Voids 1 4 Height (Feet): 5 Height (Inches): 6.00 Weight (Pounds): 122 Objective PHYSICAL EXAMINATION: VITAL SIGNS: Have been reviewed. HEENT: PERRLA. NECK: Supple. No lymphadenopathy. CHEST: Clear to auscultation. CARDIOVASCULAR: Regular rate and rhythm. No murmurs or extra sounds. GASTROINTESTINAL: Soft, nontender, and nondistended. No organomegaly. EXTREMITIES: No edema. Moves all four extremities. NEUROLOGIC: Sensory intact to light touch. Reflexes are equal on both sides. Bennie Goss MD Dec 16, 2018 15:00
--- NOTE | 2018-12-16 17:24 | General Progress Note ---
Assessment/Plan Status: stable, unchanged Assessment/Plan: 63 y/o man with hx of paroxysmal atrial fibrillation, presented to the hospital with pre-syncope, found to have rapid atrial fibrillation. # Hypotension - lisinopril stopped #Paroxysmal Atrial Fibrillation #Atrial fibrillation with RVR - Cont beta zack and Diltiazem for rate control - holding parameters. - Cont NOAC.. - echo did not show any remarkable changes - Apprec cardiology recs #Anemia due to chronic illness #Thrombocytopenia - Hgb and platelet count appeared to be at baseline, seen by Hematology, no new changes recommended. Labs stable. #unstable gait -continue PT - PATIENT WILL NEED TO BE WITHOUT FWW in order to return to his CARE HOME. Recommend DC to assisted living facility at [place] per PT final report. Otherwise, will need new placement. newspaper manager follow up is needed. WENDY note for conservator reviewed. #Behavorial disorder -psych meds restarted -psychiatry consulted # Disposition Difficult placement. Per director of casework department no insurance available. [facility] Need to continue efforts by CM and SW to place. WENDY spoke with Daily Sequeira [phone] who states Veronica spoke with SSI and patient' s SSI will be reinstated December 17. WENDY inquired about placement. Daily indicted she will contact various board and cares but could not guarantee she would locate placement due to patient currently not having income. WENDY updated CM. Will continue to follow up. Medically stable for discharge when placement is approved. Subjective Date patient seen: Dec 16, 2018 Allergies: Coded Allergies: RISPERIDONE (Unverified Allergy, Unknown, 07/04/18) ZIPRASIDONE (Verified Allergy, Unknown, 06/30/18) Subjective No acute overnight events, No chest pain or dyspnea, no other complaints, Refused MRI, ambulating, refusing labs Objective Last 24 Hour Vital Signs Date Time Temp Pulse Resp B/P (MAP) Pulse Ox O2 Delivery O2 Flow Rate FiO2 12/16/18 12:00 97.4 85 16 118/74 (89) 98 12/16/18 10:58 106/76 12/16/18 10:57 80 106/76 12/16/18 10:54 80 20 106/76 (86) 97 12/16/18 09:00 Room Air 12/16/18 08:00 98.1 93 17 91/57 (68) 97 12/16/18 04:00 97.6 80 18 99/68 (78) 97 12/16/18 00:00 98.2 82 18 105/64 (78) 95 12/15/18 21:00 Room Air 12/15/18 20:00 97.6 75 18 92/66 (75) 99 Intake and Output 12/15/18 12/16/18 19:00 07:00 Intake Total 900 ml 1000 ml Balance 900 ml 1000 ml Intake Oral 900 ml 1000 ml # Voids 1 4 Height (Feet): 5 Height (Inches): 6.00 Weight (Pounds): 122 Objective General: alert, cooperative, no distress, appears stated age Head: normocephalic, without obvious abnormality, atraumatic Eyes: conjunctivae/corneas clear. PERRL, EOM's intact Throat: lips, mucosa, and tongue normal. MMM Neck: supple, symmetrical, trachea midline, and no JVD Lungs: clear to auscultation bilaterally Heart: regular rate and rhythm, S1, S2 normal, no murmur, click, rub or gallop Abdomen: soft, non-tender, non-distended, bowel sounds normal; no masses or organomegaly Extremities: extremities normal, atraumatic, no cyanosis or edema Pulses: 2+ and symmetric Skin: skin color, texture, turgor normal; no rashes or lesions Neurologic: grossly normal, no focal deficits Anny Cole MD Dec 16, 2018 17:24
--- NOTE | 2018-12-16 18:41 | NUR ---
NURSE NOTES: UNEVENTFUL DAY. DISCHARGE PLANNED FOR TOMORROW. PATIENT AWARE.
--- NOTE | 2018-12-16 19:30 | NUR ---
NURSE NOTES: Received report from ELLA Garnett and rounds made with out going nurse. Received pt in bed asleep, easily arousable by verbal stimuli, AOx4, denies any pain, no distress noted. Bed in lowest position and locked, side rails up x 2, call light within reach. Will continue to monitor.
--- NOTE | 2018-12-16 19:37 | NUR ---
HAND-OFF: Report given to CECI MORRELL RN.
[2018-12-16 20:00] VITALS: BP 115/75
[2018-12-17] VITALS: BP 106/61
[2018-12-17 04:00] VITALS: BP 142/85
--- NOTE | 2018-12-17 05:00 | NUR ---
NURSE NOTES: Pt refused am lab draw.
[2018-12-17 08:00] VITALS: BP 111/73
--- NOTE | 2018-12-17 08:00 | NUR ---
NURSE NOTES: Patient received in stable condition, resting in bed. Alert and oriented, breathing unlabored on room air. Denies pain or SOB at this time. Bed locked in lowest position, call light placed within reach. Will continue to monitor.
[2018-12-17] MEDS: dilTIAZem HCl CD 120mg cap ORAL SCH (08:46)
[2018-12-17] MEDS: Lisinopril 20mg tab ORAL SCH (08:46)
[2018-12-17] MEDS: Eliquis 5mg tablet ORAL SCH ×2 (08:46→17:44)
--- NOTE | 2018-12-17 09:57 | Hematology/Onc Progress Note ---
Assessment/Plan Assessment/Plan # Anemia of chronic disease due to underlying chronic medical issues, multifactorial --> Anemia workup has been reviewed. Ferritin 83, TIBC 242 --> No evidence of hemolysis is noted, peripheral smear has been reviewed. --> Hgb goal >7. Transfuse prn. --> Epogen or iron at this time is not particularly indicated --> Medications have been reviewed --> hgb trend 14.1-->12.5--> 12.3-->11-->11.2-->10 # Thrombocytopenia - potential causes multifactorial, evaluate liver and viral etiologies to begin, also could be related to underlying medications patient has received. --> Hep panel and HIV on PRIOR admission was negative --> US abd negative for cirrhosis and hsm --> Peripheral smear ordered to evaluate for blasts/schistocytes, none noted --> abx and other meds have been reviewed (one contributor could be depakote) --> ok for ppx if plt >50k w/ either heparin or lovenox --> Plt trend 118-->169k-->187k--> 102K->133k-->154k-->182k # FTT with decreased bmi on admission --> began on mirtazapine --> daily weight and monitor # Atelectasis, optimize pulmonary hygiene/mobilize as tolerated --> on cxr appears stable --> per pulm recs # Paroxysmal AFib, per cardiology recs--> on noac --> on eliquis (ok to continue) # Hypertension --> controlled, sbp goal <140 --> per cards # Hypothyroidism --> synthroid po to continue # Lactic acidosis --> has resolved # MACARENA which has resolved # Placement pending --> rehab, and pt/ot The timing of this note does not necessarily reflect the time of the patient was seen. Greatly appreciate consultation! Subjective HEENT: Denies: no symptoms, eye pain, blurred vision, tearing, double vision, ear pain, ear discharge, nose pain, nose congestion, throat pain, throat swelling, mouth pain, mouth swelling, other Cardiovascular: Denies: no symptoms, chest pain, edema, irregular heart rate, lightheadedness, palpitations, syncope, other Respiratory: Denies: no symptoms, cough, shortness of breath, SOB with excertion, SOB at rest, sputum, wheezing, other Gastrointestinal/Abdominal: Denies: no symptoms, abdomen distended, abdominal pain, black stools, tarry stools, blood in stool, constipated, diarrhea, difficulty swallowing, nausea, poor appetite, poor fluid intake, rectal bleeding , vomiting, other Genitourinary: Denies: no symptoms, burning, discharge, frequency, flank pain, hematuria, incontinence, pain, urgency, other Neurologic/Psychiatric: Denies: no symptoms, anxiety, depressed, emotional problems, headache, numbness, paresthesia, pre-existing deficit, seizure, tingling, tremors, weakness, other Hematologic/Lymphatic: Denies: no symptoms, anemia, easy bleeding, easy bruising, adenopathy, other Allergies: Coded Allergies: RISPERIDONE (Unverified Allergy, Unknown, 07/04/18) ZIPRASIDONE (Verified Allergy, Unknown, 06/30/18) Subjective 11/06: Pt resting in bed. No acute distress. DC planning. 11/08: Pt asleep in bed. No acute events. 11/10: Pt stable, no signs of acute distress or SOB. Venous duplex negative. 11/11: Pt resting in bed. Afebrile, no sob. MRI brain pending. 11/12: Pt in bed, sleeping. No respiratory distress noted. DC planning. 11/13: Pt awake and alert, refused morning meds. No signs of SOB or pain observed. Plt count significantly improved overnight. 11/15: Pt denies pain, no complaints of dyspnea 11/17: Pt resting in bed no chest pain or dyspnea, no other complaints 11/18: unable to place picc given do not have consent 11/20: no acute events reported. 11/21: pt refused am labs as well as am meds. h/h stable from prior labs. 11/22: pt no acute distress. Afebrile, VS reviewed. 11/23: no events reported, no f/c noted 11/24: refusing to participate in exam, labs have been reviewed 11/25: eating ensure this am, discharge planning pending, dw CM 11/26: on noac, continues, no bleeding, hgb is 11.2 11/27: refusing labs this am, discussed with him importance 11/28: resting comfortably, no acute events, no bleeding reported, no night sweats 11/29: no events, no bleeding reported, no night sweats 11/30: no events, no bleeding, no chills, no major night sweats 12/01: getting rehab, pt/ot as needed, no f/c 12/02: walking around the priest with a FWW, says feeling better 12/03: given ativan overnight, feeling better 12/04: awake and alert, no acute events, placement pending 12/05: awake and alert, resting in bed, no acute events. 12/06: anxious and aggravated, vs stable, placement pending per geriatric case manager 12/07: no events to report, no f/c, no night sweats refusing po, will start on mirtazpine 12/08: no events noted, no f/c, no night sweats, no bleeding noted 12/09: no events, eating breakfast, cbc again reordered 12/10: no fevers or chills noted, no bleeding, no events, pending placement 12/11: walking around in hallway, no complaints, eating 12/12: labs reviewed, cbc still refusing in the am 12/13: asleep, still refusing labs, no fc 12/14: no events noted, no bleeding, no fc 12/15: not agitated, sinemet has been started per neuro 12/16: dc when public guardian raises money 12/17: dc planning as early as today, alert no complaints this am Objective Objective Current Medications Medications (Trade) Dose Ordered Sig/Eduardo Route PRN Reason Start Time Stop Time Status Last Admin Dose Admin Acetaminophen (Tylenol) 650 mg Q4H PRN ORAL Mild Pain/Temp > 100.5 12/02/18 01:00 01/01/19 00:59 12/06/18 00:22 Apixaban (Eliquis) 5 mg BID ORAL 12/05/18 15:00 01/04/19 14:59 12/17/18 08:46 Diltiazem HCl (Cardizem CD) 120 mg DAILY ORAL 11/21/18 10:50 12/21/18 10:49 12/17/18 08:46 Gabapentin (Neurontin) 100 mg BEDTIME ORAL 11/18/18 21:00 12/18/18 20:59 12/16/18 21:14 Lisinopril (Prinivil) 20 mg DAILY ORAL 11/22/18 09:00 12/22/18 08:59 12/17/18 08:46 Mirtazapine (Remeron) 7.5 mg BEDTIME ORAL 12/07/18 21:00 01/06/19 20:59 12/16/18 21:14 Temazepam (Restoril) 15 mg HSPRN PRN ORAL Insomnia 12/10/18 21:00 12/17/18 20:59 12/11/18 21:38 Last 24 Hour Vital Signs Date Time Temp Pulse Resp B/P (MAP) Pulse Ox O2 Delivery O2 Flow Rate FiO2 12/17/18 08:46 142/85 12/17/18 08:46 80 142/85 12/17/18 08:00 97.5 99 16 111/73 (86) 98 12/17/18 04:00 97.1 80 18 142/85 (104) 97 12/17/18 00:00 97.8 87 19 106/61 (76) 93 12/16/18 21:00 Room Air 12/16/18 20:00 97.5 82 18 115/75 (88) 97 12/16/18 12:00 97.4 85 16 118/74 (89) 98 12/16/18 10:58 106/76 12/16/18 10:57 80 106/76 12/16/18 10:54 80 20 106/76 (86) 97 12/16/18 09:00 Room Air 12/16/18 08:00 98.1 93 17 91/57 (68) 97 12/16/18 04:00 97.6 80 18 99/68 (78) 97 12/16/18 00:00 98.2 82 18 105/64 (78) 95 12/15/18 21:00 Room Air 12/15/18 20:00 97.6 75 18 92/66 (75) 99 12/15/18 11:37 97.6 88 17 125/87 (100) 95 12/15/18 11:14 125/82 12/15/18 11:14 88 125/82 Intake and Output 12/16/18 12/17/18 19:00 07:00 Intake Total 1000 ml 480 ml Balance 1000 ml 480 ml Intake Oral 1000 ml 480 ml # Voids 2 3 # Bowel Movements 2 1 Height (Feet): 5 Height (Inches): 6.00 Weight (Pounds): 122 Objective PE: VITAL SIGNS: Have been reviewed. CHEST: Clear to auscultation. CV: Regular rate and rhythm. No murmurs or extra sounds. GASTROINTESTINAL: Soft, nontender, and nondistended. No organomegaly. EXTREMITIES: No edema. Moves all four extremities. NEUROLOGIC: Sensory intact to light touch. Reflexes are equal on both sides. Bennie Goss MD Dec 17, 2018 09:57
--- NOTE | 2018-12-17 12:07 | NUR ---
CASE MANAGEMENT:REVIEW 12/17/18 SI: ANEMIA. AFIB W/RVR 97.5 99 16 142/85 98% ON RA IS: RESTORIL PO QHS PRN REMERON PO QHS ELIQUIS PO BID LISINOPRIL PO QD CARDIZEM PO QD NEURONTIN PO QHS : MED/SURG STATUS 4 EAST DCP: FROM [facility] PLAN: SEEKING NEW BOARD CARE FOR PATIENT WAITING FOR PUBLIC [employer] TO RELEASE PATIENT'S FUNDS SO HE CAN DISCHARGE TO A BOARD AND CARE
--- NOTE | 2018-12-17 13:06 | NUR ---
*-* INSURANCE *-* UPDATED CLINICALS AND REVIEWS HAVE BEEN FAXED TO: [facility] F:[phone]
--- NOTE | 2018-12-17 19:10 | NUR ---
NURSE NOTES: Received a report from Carly Ramey RN. Pt is in stable condition. AAOX4. Able to make needs known. On room air. No c/o pain/discomfort. No IV access, MD is aware. Bed in lowest position. Bed alarm is on. Call light within reach. Will continue to monitor.
--- NOTE | 2018-12-17 19:37 | NUR ---
HAND-OFF: Report given to Yuly JARAMILLO.
[2018-12-17 20:00] VITALS: BP 145/97
--- NOTE | 2018-12-17 20:51 | General Progress Note ---
Assessment/Plan Status: stable, unchanged Assessment/Plan: 63 y/o man with hx of paroxysmal atrial fibrillation, presented to the hospital with pre-syncope, found to have rapid atrial fibrillation. # Hypotension - lisinopril stopped #Paroxysmal Atrial Fibrillation #Atrial fibrillation with RVR - Cont beta zack and Diltiazem for rate control - holding parameters. - Cont NOAC.. - echo did not show any remarkable changes - Apprec cardiology recs #Anemia due to chronic illness #Thrombocytopenia - Hgb and platelet count appeared to be at baseline, seen by Hematology, no new changes recommended. Labs stable. #unstable gait -continue PT - PATIENT WILL NEED TO BE WITHOUT FWW in order to return to his NURSING HOME. Recommend DC to assisted living facility at [place] per PT final report. Otherwise, will need new placement. digital asset manager follow up is needed. WENDY note for conservator reviewed. #Behavorial disorder -psych meds restarted -psychiatry consulted # Disposition Difficult placement. Per employment evaluator/case manager no insurance available. [facility] notes reported [facility]. Need to continue efforts by CM and SW to place. WENDY spoke with Daily Sequeira [phone] who states Veronica spoke with SSI and patient' s SSI will be reinstated December 17. WENDY inquired about placement. Daily indicted she will contact various board and cares but could not guarantee she would locate placement due to patient currently not having income. WENDY updated CM. Will continue to follow up. Medically stable for discharge when placement is approved. Subjective Date patient seen: Dec 17, 2018 Allergies: Coded Allergies: RISPERIDONE (Unverified Allergy, Unknown, 07/04/18) ZIPRASIDONE (Verified Allergy, Unknown, 06/30/18) Subjective No acute overnight events, No chest pain or dyspnea, no other complaints, Refused MRI, ambulating, refusing labs Objective Last 24 Hour Vital Signs Date Time Temp Pulse Resp B/P (MAP) Pulse Ox O2 Delivery O2 Flow Rate FiO2 12/17/18 20:00 98.2 78 18 145/97 (113) 96 12/17/18 09:00 Room Air 12/17/18 08:46 142/85 12/17/18 08:46 80 142/85 12/17/18 08:00 97.5 99 16 111/73 (86) 98 12/17/18 04:00 97.1 80 18 142/85 (104) 97 12/17/18 00:00 97.8 87 19 106/61 (76) 93 12/16/18 21:00 Room Air Intake and Output 12/16/18 12/17/18 19:00 07:00 Intake Total 1000 ml 480 ml Balance 1000 ml 480 ml Intake Oral 1000 ml 480 ml # Voids 2 3 # Bowel Movements 2 1 Height (Feet): 5 Height (Inches): 6.00 Weight (Pounds): 122 Objective General: alert, cooperative, no distress, appears stated age Head: normocephalic, without obvious abnormality, atraumatic Eyes: conjunctivae/corneas clear. PERRL, EOM's intact Throat: lips, mucosa, and tongue normal. MMM Neck: supple, symmetrical, trachea midline, and no JVD Lungs: clear to auscultation bilaterally Heart: regular rate and rhythm, S1, S2 normal, no murmur, click, rub or gallop Abdomen: soft, non-tender, non-distended, bowel sounds normal; no masses or organomegaly Extremities: extremities normal, atraumatic, no cyanosis or edema Pulses: 2+ and symmetric Skin: skin color, texture, turgor normal; no rashes or lesions Neurologic: grossly normal, no focal deficits Anny Cole MD Dec 17, 2018 20:51
--- NOTE | 2018-12-18 | NUR ---
NURSE NOTES: Pt refused vital signs despite education provided. He just wants to sleep.
[2018-12-18 04:00] VITALS: BP 126/83
--- NOTE | 2018-12-18 07:15 | NUR ---
HAND-OFF: Report given to ELLA Greenwood.
--- NOTE | 2018-12-18 07:23 | NUR ---
NURSE NOTES: PATIENT HANDOFF RECEIVED FROM ELLA CUELLAR. PATIENT RECEIVED AWAKE AND SITTING ON THE SIDE OF THE BED. NO IV SITE, DR AWARE. NO PHYSICAL SIGNS OF DISTRESS. PATIENT HAS CALL LIGHT WITH REACH AND BED IN THE LOCKED AND LOWEST POSITION.
[2018-12-18] MEDS: Eliquis 5mg tablet ORAL SCH ×2 (08:44→18:01)
[2018-12-18] MEDS: dilTIAZem HCl CD 120mg cap ORAL SCH (08:49)
[2018-12-18] MEDS: Lisinopril 20mg tab ORAL SCH (08:50)
--- NOTE | 2018-12-18 09:15 | Progress Note ---
DATE: 12/17/2018 SUBJECTIVE: The patient is in bed, no acute distress. Calm, confused. He is disorganized and speaking gibberish. Unable to provide meaningful history or answer the questions. He is cooperative and follows commands. MENTAL STATUS EXAMINATION: The patient is alert, oriented times self. He did not know he was in the hospital nor he knew the date or the year. Mood is neutral. Affect is flat. Thought process is disorganized. Thought content, no suicidal or homicidal ideation. Insight and judgment are poor. Memory, concentration is poor. ASSESSMENT: 1. Dementia. 2. Anxiety disorder. PLAN: 1. The patient will be continued on current medication. 2. The patient is not an imminent danger to self or others. 3. The patient was examined with the presence of the charge nurse. Anna Mathew M.D. DR: TARA JOB#: [id number] CC:
--- NOTE | 2018-12-18 09:28 | Hematology/Onc Progress Note ---
Assessment/Plan Assessment/Plan # Anemia of chronic disease due to underlying chronic medical issues, multifactorial --> Anemia workup has been reviewed. Ferritin 83, TIBC 242 --> No evidence of hemolysis is noted, peripheral smear has been reviewed. --> Hgb goal >7. Transfuse prn. --> Epogen or iron at this time is not particularly indicated --> Medications have been reviewed --> hgb trend 14.1-->12.5--> 12.3-->11-->11.2-->10 --> still has been refusing labs # Thrombocytopenia - potential causes multifactorial, evaluate liver and viral etiologies to begin, also could be related to underlying medications patient has received. --> Hep panel and HIV on PRIOR admission was negative --> US abd negative for cirrhosis and hsm --> Peripheral smear ordered to evaluate for blasts/schistocytes, none noted --> abx and other meds have been reviewed (one contributor could be depakote) --> ok for ppx if plt >50k w/ either heparin or lovenox --> Plt trend 118-->169k-->187k--> 102K->133k-->154k-->182k # FTT with decreased bmi on admission --> began on mirtazapine --> daily weight and monitor # Atelectasis, optimize pulmonary hygiene/mobilize as tolerated --> on cxr appears stable --> per pulm recs # Paroxysmal AFib, per cardiology recs--> on noac --> on eliquis (ok to continue) # Hypertension --> controlled, sbp goal <140 --> per cards # Hypothyroidism --> synthroid po to continue # Lactic acidosis --> has resolved # MACARENA which has resolved # Placement pending --> rehab, and pt/ot The timing of this note does not necessarily reflect the time of the patient was seen. Greatly appreciate consultation! Subjective Cardiovascular: Denies: no symptoms, chest pain, edema, irregular heart rate, lightheadedness, palpitations, syncope, other Respiratory: Denies: no symptoms, cough, shortness of breath, SOB with excertion, SOB at rest, sputum, wheezing, other Gastrointestinal/Abdominal: Denies: no symptoms, abdomen distended, abdominal pain, black stools, tarry stools, blood in stool, constipated, diarrhea, difficulty swallowing, nausea, poor appetite, poor fluid intake, rectal bleeding , vomiting, other Genitourinary: Denies: no symptoms, burning, discharge, frequency, flank pain, hematuria, incontinence, pain, urgency, other Neurologic/Psychiatric: Denies: no symptoms, anxiety, depressed, emotional problems, headache, numbness, paresthesia, pre-existing deficit, seizure, tingling, tremors, weakness, other Endocrine: Denies: no symptoms, excessive sweating, flushing, intolerance to cold, intolerance to heat, increased hunger, increased thirst, increased urine, unexplained weight gain, unexplained weight loss, other Hematologic/Lymphatic: Denies: no symptoms, anemia, easy bleeding, easy bruising, adenopathy, other Allergies: Coded Allergies: RISPERIDONE (Unverified Allergy, Unknown, 07/04/18) ZIPRASIDONE (Verified Allergy, Unknown, 06/30/18) Subjective 11/06: Pt resting in bed. No acute distress. DC planning. 11/08: Pt asleep in bed. No acute events. 11/10: Pt stable, no signs of acute distress or SOB. Venous duplex negative. 11/11: Pt resting in bed. Afebrile, no sob. MRI brain pending. 11/12: Pt in bed, sleeping. No respiratory distress noted. DC planning. 11/13: Pt awake and alert, refused morning meds. No signs of SOB or pain observed. Plt count significantly improved overnight. 11/15: Pt denies pain, no complaints of dyspnea 11/17: Pt resting in bed no chest pain or dyspnea, no other complaints 11/18: unable to place picc given do not have consent 11/20: no acute events reported. 11/21: pt refused am labs as well as am meds. h/h stable from prior labs. 11/22: pt no acute distress. Afebrile, VS reviewed. 11/23: no events reported, no f/c noted 11/24: refusing to participate in exam, labs have been reviewed 11/25: eating ensure this am, discharge planning pending, dw CM 11/26: on noac, continues, no bleeding, hgb is 11.2 11/27: refusing labs this am, discussed with him importance 11/28: resting comfortably, no acute events, no bleeding reported, no night sweats 11/29: no events, no bleeding reported, no night sweats 11/30: no events, no bleeding, no chills, no major night sweats 12/01: getting rehab, pt/ot as needed, no f/c 12/02: walking around the priest with a FWW, says feeling better 12/03: given ativan overnight, feeling better 12/04: awake and alert, no acute events, placement pending 12/05: awake and alert, resting in bed, no acute events. 12/06: anxious and aggravated, vs stable, placement pending per shoe parts caser 12/07: no events to report, no f/c, no night sweats refusing po, will start on mirtazpine 12/08: no events noted, no f/c, no night sweats, no bleeding noted 12/09: no events, eating breakfast, cbc again reordered 12/10: no fevers or chills noted, no bleeding, no events, pending placement 12/11: walking around in hallway, no complaints, eating 12/12: labs reviewed, cbc still refusing in the am 12/13: asleep, still refusing labs, no fc 12/14: no events noted, no bleeding, no fc 12/15: not agitated, sinemet has been started per neuro 12/16: dc when public guardian raises money 12/17: dc planning as early as today, alert no complaints this am 12/18: no f/c, no night sweats, no bleeding noted Objective Objective Current Medications Medications (Trade) Dose Ordered Sig/Eduardo Route PRN Reason Start Time Stop Time Status Last Admin Dose Admin Acetaminophen (Tylenol) 650 mg Q4H PRN ORAL Mild Pain/Temp > 100.5 12/02/18 01:00 01/01/19 00:59 12/06/18 00:22 Apixaban (Eliquis) 5 mg BID ORAL 12/05/18 15:00 01/04/19 14:59 12/18/18 08:44 Diltiazem HCl (Cardizem CD) 120 mg DAILY ORAL 11/21/18 10:50 12/21/18 10:49 12/18/18 08:49 Gabapentin (Neurontin) 100 mg BEDTIME ORAL 11/18/18 21:00 12/18/18 20:59 12/17/18 20:25 Lisinopril (Prinivil) 20 mg DAILY ORAL 11/22/18 09:00 12/22/18 08:59 12/18/18 08:50 Mirtazapine (Remeron) 7.5 mg BEDTIME ORAL 12/07/18 21:00 01/06/19 20:59 12/17/18 20:25 Last 24 Hour Vital Signs Date Time Temp Pulse Resp B/P (MAP) Pulse Ox O2 Delivery O2 Flow Rate FiO2 12/18/18 08:50 134/87 12/18/18 08:49 79 134/87 12/18/18 04:00 97.3 75 20 126/83 (97) 97 12/17/18 21:00 Room Air 12/17/18 20:00 98.2 78 18 145/97 (113) 96 12/17/18 09:00 Room Air 12/17/18 08:46 142/85 12/17/18 08:46 80 142/85 12/17/18 08:00 97.5 99 16 111/73 (86) 98 12/17/18 04:00 97.1 80 18 142/85 (104) 97 12/17/18 00:00 97.8 87 19 106/61 (76) 93 12/16/18 21:00 Room Air 12/16/18 20:00 97.5 82 18 115/75 (88) 97 12/16/18 12:00 97.4 85 16 118/74 (89) 98 12/16/18 10:58 106/76 12/16/18 10:57 80 106/76 12/16/18 10:54 80 20 106/76 (86) 97 Intake and Output 12/17/18 12/18/18 19:00 07:00 Intake Total 500 ml Balance 500 ml Intake Oral 500 ml # Voids 4 2 # Bowel Movements 1 Height (Feet): 5 Height (Inches): 6.00 Weight (Pounds): 122 Objective PE: VITAL SIGNS: Have been reviewed. CHEST: Clear to auscultation. CV: Regular rate and rhythm. No murmurs or extra sounds. GASTROINTESTINAL: Soft, nontender, and nondistended. No organomegaly. EXTREMITIES: No edema. Moves all four extremities. NEUROLOGIC: Sensory intact to light touch. Reflexes are equal on both sides. Bennie Goss MD Dec 18, 2018 09:28
--- NOTE | 2018-12-18 14:29 | General Progress Note ---
Assessment/Plan Status: stable, unchanged Assessment/Plan: 63 y/o man with hx of paroxysmal atrial fibrillation, presented to the hospital with pre-syncope, found to have rapid atrial fibrillation. # Hypotension - lisinopril stopped #Paroxysmal Atrial Fibrillation #Atrial fibrillation with RVR - Cont beta zack and Diltiazem for rate control - holding parameters. - Cont NOAC.. - echo did not show any remarkable changes - Apprec cardiology recs #Anemia due to chronic illness #Thrombocytopenia - Hgb and platelet count appeared to be at baseline, seen by Hematology, no new changes recommended. Labs stable. #unstable gait -continue PT - PATIENT WILL NEED TO BE WITHOUT FWW in order to return to his [facility]. Recommend DC to assisted living facility at DC per PT final report. Otherwise, will need new placement. manager internet follow up is needed. WENDY note for conservator reviewed. #Behavorial disorder -psych meds restarted -psychiatry consulted # Disposition Difficult placement. Per family preservation caseworker no insurance available. [facility]. Need to continue efforts by CM and SW to place. WENDY spoke with Daily Sequeira [phone] who states Veronica spoke with SSI and patient' s SSI will be reinstated December 17. WENDY inquired about placement. Daily indicted she will contact various board and cares but could not guarantee she would locate placement due to patient currently not having income. WENDY updated CM. Will continue to follow up. Medically stable for discharge when placement is approved. Subjective Date patient seen: Dec 18, 2018 Allergies: Coded Allergies: RISPERIDONE (Unverified Allergy, Unknown, 07/04/18) ZIPRASIDONE (Verified Allergy, Unknown, 06/30/18) Subjective No acute overnight events, No chest pain or dyspnea, no other complaints, Refused MRI, ambulating, refusing labs Objective Last 24 Hour Vital Signs Date Time Temp Pulse Resp B/P (MAP) Pulse Ox O2 Delivery O2 Flow Rate FiO2 12/18/18 09:00 Room Air 12/18/18 08:50 134/87 12/18/18 08:49 79 134/87 12/18/18 04:00 97.3 75 20 126/83 (97) 97 12/17/18 21:00 Room Air 12/17/18 20:00 98.2 78 18 145/97 (113) 96 Intake and Output 12/17/18 12/18/18 19:00 07:00 Intake Total 500 ml Balance 500 ml Intake Oral 500 ml # Voids 4 2 # Bowel Movements 1 Height (Feet): 5 Height (Inches): 6.00 Weight (Pounds): 122 Objective General: alert, cooperative, no distress, appears stated age Head: normocephalic, without obvious abnormality, atraumatic Eyes: conjunctivae/corneas clear. PERRL, EOM's intact Throat: lips, mucosa, and tongue normal. MMM Neck: supple, symmetrical, trachea midline, and no JVD Lungs: clear to auscultation bilaterally Heart: regular rate and rhythm, S1, S2 normal, no murmur, click, rub or gallop Abdomen: soft, non-tender, non-distended, bowel sounds normal; no masses or organomegaly Extremities: extremities normal, atraumatic, no cyanosis or edema Pulses: 2+ and symmetric Skin: skin color, texture, turgor normal; no rashes or lesions Neurologic: grossly normal, no focal deficits Anny Cole MD Dec 18, 2018 14:29
--- NOTE | 2018-12-18 15:14 | NUR ---
*-* INSURANCE *-* UPDATED CLINICALS AND REVIEWS HAVE BEEN FAXED TO: [facility] F:[phone]
--- NOTE | 2018-12-18 15:45 | NUR ---
CASE MANAGEMENT:REVIEW 12/18/18 SI: ANEMIA. AFIB W/RVR 97.3 75 20 126/83 97% ON RA IS: RESTORIL PO QHS PRN REMERON PO QHS ELIQUIS PO BID LISINOPRIL PO QD CARDIZEM PO QD NEURONTIN PO QHS : MED/SURG STATUS 4 EAST DCP: FROM NIKKI NAYAK
--- NOTE | 2018-12-18 15:48 | NUR ---
DISCHARGE PLANNING FUNDS ARE NOW AVAILABLE OUR SOLUTION DIRECTOR FOUND PLACEMENT IN [place] FOR THIS PATIENT. HOWEVER PUBLIC GUARDIAN DID NOT APPROVE PUBLIC GUARDIAN REFERRED PATIENT TO "[facility]" HOWEVER WHEN THE REP CAME OUT TO INTERVIEW THE PATIENT HE WOULD NOT SPEAK TO HER AND WOULD NOT ANSWER HER QUESTIONS...SO SHE LEFT RECEIVED CALL FROM PUBLIC GUARDIAN DANNIELLE T: [phone] STATING SHE WILL HAVE A PUBLIC GUARDIAN, LÁZARO, COME OUT AND SPEAK WITH PATIENT ON FRIDAY AND ALSO ASK SALUD COME BACK OUT TO INTERVIEW HIM THIS CHIEF LENDING OFFICER ALSO CALLED "[facility]AC[facility] " AND SPOKE WITH RIANNA T: [phone] AND ASKED IF SHE COULD ASSIST WITH PLACEMENT PATIENT NEEDS A LICENSED [facility] THAT CAN ASSIST WITH MEDICATION
[2018-12-18 16:00] VITALS: BP 121/83
--- NOTE | 2018-12-18 17:35 | NUR ---
Social Service Note SW and CM have worked closely in trying to obtain placement for discharge. Discussed with communications electrician supervisor Veronica Hayes [phone] the multiple barriers for placement. The following facilities where contact: [facility]le[facility] Walsh [phone] (p) [phone] (f) requires PT notes indicating patient is independent with walking up and downstairs. Patient refused to work with PT today. [facility] [phone] cannot accept over the age of 59 [facility] [phone] cannot accept over the age of 59 Cheryl Mayfield [phone] (p) [phone] (f) due to slow payment from [facility] office Afshan Villeda [phone] (p) [phone] (f) Referral faxed to Ras[facility] who will review and follow up on Friday
--- NOTE | 2018-12-18 19:43 | NUR ---
HAND-OFF: Report given to ELLA CHAPMAN.PATIENT STABLE WITH NO PHYSICAL SIGNS OF DISTRESS. PATIENT RESTING IN BED.
--- NOTE | 2018-12-18 19:43 | NUR ---
NURSE NOTES:Patient received from DEVIN ColesPatient A/A/AOX2 forgetful .Patient denies any pain at this time . no s/s of distress noted . Patient no IV access MD aware. call light within reach . Bed in low position at all times . will continue to monitor.
[2018-12-18 20:00] VITALS: BP 124/83
[2018-12-19 04:00] VITALS: BP 112/80
--- NOTE | 2018-12-19 07:28 | NUR ---
HAND-OFF: Report given to Cindy Mederos Patient on stable condition..
[2018-12-19 08:00] VITALS: BP 126/71
--- NOTE | 2018-12-19 08:16 | NUR ---
NURSE NOTES: Received report from Cathi SNYDER, pt a/a/o laying in bed with no signs of distress, pt doesn't have any IV access, MD is aware. plan to transfer to a boarding care once public guardian consents. call light within reach. bed in lowest position. side rales up x2. I will f/u as needed.
[2018-12-19] MEDS: Eliquis 5mg tablet ORAL SCH ×2 (10:07→17:49)
[2018-12-19] MEDS: Lisinopril 20mg tab ORAL SCH (10:08)
[2018-12-19] MEDS: dilTIAZem HCl CD 120mg cap ORAL SCH (10:09)
[2018-12-19 12:00] VITALS: BP 144/83
--- NOTE | 2018-12-19 14:56 | General Progress Note ---
Assessment/Plan Status: stable, unchanged Assessment/Plan: Assessment/Plan Status: stable, unchanged Assessment/Plan: 63 y/o man with hx of paroxysmal atrial fibrillation, presented to the hospital with pre-syncope, found to have rapid atrial fibrillation. # Hypotension - lisinopril stopped #Paroxysmal Atrial Fibrillation #Atrial fibrillation with RVR - Cont beta zack and Diltiazem for rate control - holding parameters. - Cont NOAC.. - echo did not show any remarkable changes - Apprec cardiology recs #Anemia due to chronic illness #Thrombocytopenia - Hgb and platelet count appeared to be at baseline, seen by Hematology, no new changes recommended. Labs stable. #unstable gait -continue PT - PATIENT WILL NEED TO BE WITHOUT FWW in order to return to his RETIREMENT. Recommend DC to assisted living facility at DC per PT final report. Otherwise, will need new placement. manager cash follow up is needed. SW note for conservator reviewed. I DO NOT UNDERSTAND WHY THE CONSERVATOR REFUSED TO PLACE THE PATIENT BACK TO HIS RETIREMENT. NEED TO HAVE SW follow up on this DAVID. ? Formal complain for conservator and request new conservator vs other legal action. #Behavorial disorder -psych meds restarted -psychiatry consulted # Disposition Difficult placement. Per home health care case manager no insurance available. [facility] notes reported [facility]. Need to continue efforts by CM and SW to place. WENDY spoke with Daily Sequeira [phone] who states Veronica spoke with SSI and patient' s SSI will be reinstated December 17. WENDY inquired about placement. Daily indicted she will contact various board and cares but could not guarantee she would locate placement due to patient currently not having income. ( PER DISCUSSION WITH RN, CURRENT CONSERVATOR MANAGES THE PATIENT'S MONEY) WENDY updated CM. Will continue to follow up. Medically stable for discharge when placement is approved. Subjective ROS Limited/Unobtainable: Yes Allergies: Coded Allergies: RISPERIDONE (Unverified Allergy, Unknown, 07/04/18) ZIPRASIDONE (Verified Allergy, Unknown, 06/30/18) All Systems: reviewed and negative except above Objective Last 24 Hour Vital Signs Date Time Temp Pulse Resp B/P (MAP) Pulse Ox O2 Delivery O2 Flow Rate FiO2 12/19/18 12:00 98.4 92 19 144/83 (103) 97 12/19/18 10:09 63 126/71 12/19/18 10:08 126/71 12/19/18 09:00 Room Air 12/19/18 08:00 97.7 63 19 126/71 (89) 97 12/19/18 04:00 97.0 77 18 112/80 (91) 98 12/18/18 21:00 Room Air 12/18/18 20:00 97.5 88 18 124/83 (97) 97 12/18/18 16:00 97.5 76 18 121/83 (96) 98 Intake and Output 12/18/18 12/19/18 19:00 07:00 Intake Total 1200 ml 677 ml Balance 1200 ml 677 ml Intake Oral 1200 ml 677 ml # Voids 4 3 # Bowel Movements 1 Height (Feet): 5 Height (Inches): 6.00 Weight (Pounds): 122 General Appearance: WD/WN EENT: PERRL/EOMI Neck: non-tender Cardiovascular: normal rate Respiratory/Chest: lungs clear Abdomen: non tender Neurologic: estate conservator II-XII grossly normal Skin: normal pigmentation Galo Wallis MD Dec 19, 2018 14:56
[2018-12-19 16:00] VITALS: BP 107/67
--- NOTE | 2018-12-19 17:16 | NUR ---
CASE MANAGEMENT: REVIEW SI: PRE-SYNCOPE . A-FIB T 98.4 HR 92 RR 19 BP 144/83 SAT 97% ROOM AIR IS: ELEQUIS PO BID DILTIAZEM PO QD LISINOPRIL PO QD MED/SURG STATUS DCP: PATIENT IS FROM [facility]
--- NOTE | 2018-12-19 19:10 | NUR ---
NURSE NOTES: Pt received in bed asleep, no signs of distress, bed in lowest position, able to make needs known, call light within reach, will continue to monitor.
--- NOTE | 2018-12-19 19:12 | NUR ---
HAND-OFF: Report given to Chelsi JARAMILLO, pt in stable condition.
--- NOTE | 2018-12-20 07:28 | NUR ---
NURSE NOTES: Report received from Chelsi JARAMILLO, rounds made. Patient sleeping in right lateral position in bed,awakes to name. No distress on RA. No IV access. Call light in reach, bed in lowest position, will continue to monitor.
--- NOTE | 2018-12-20 07:33 | NUR ---
HAND-OFF: Report given to ELLA Serrano.
[2018-12-20 08:00] VITALS: BP 110/71
--- NOTE | 2018-12-20 09:21 | Hematology/Onc Progress Note ---
Assessment/Plan Assessment/Plan # Anemia of chronic disease due to underlying chronic medical issues, multifactorial --> Anemia workup has been reviewed. Ferritin 83, TIBC 242 --> No evidence of hemolysis is noted, peripheral smear has been reviewed. --> Hgb goal >7. Transfuse prn. --> Epogen or iron at this time is not particularly indicated --> Medications have been reviewed --> hgb trend 14.1-->12.5--> 12.3-->11-->11.2-->10 --> still has been refusing labs # Thrombocytopenia - potential causes multifactorial, evaluate liver and viral etiologies to begin, also could be related to underlying medications patient has received. --> Hep panel and HIV on PRIOR admission was negative --> US abd negative for cirrhosis and hsm --> Peripheral smear ordered to evaluate for blasts/schistocytes, none noted --> abx and other meds have been reviewed (one contributor could be depakote) --> ok for ppx if plt >50k w/ either heparin or lovenox --> Plt trend 118-->169k-->187k--> 102K->133k-->154k-->182k # FTT with decreased bmi on admission --> began on mirtazapine, to continue --> daily weight and monitor # Atelectasis, optimize pulmonary hygiene/mobilize as tolerated --> on cxr appears stable --> per pulm recs # Paroxysmal AFib, per cardiology recs--> on noac --> on eliquis (ok to continue) # Hypertension --> controlled, sbp goal <140 --> as per cards # Hypothyroidism --> Synthroid po to continue # Lactic acidosis --> has resolved # MACARENA which has resolved --> per renal care # Placement pending --> rehab, and pt/ot The timing of this note does not necessarily reflect the time of the patient was seen. Greatly appreciate consultation! Subjective HEENT: Denies: no symptoms, eye pain, blurred vision, tearing, double vision, ear pain, ear discharge, nose pain, nose congestion, throat pain, throat swelling, mouth pain, mouth swelling, other Cardiovascular: Denies: no symptoms, chest pain, edema, irregular heart rate, lightheadedness, palpitations, syncope, other Respiratory: Denies: no symptoms, cough, shortness of breath, SOB with excertion, SOB at rest, sputum, wheezing, other Gastrointestinal/Abdominal: Denies: no symptoms, abdomen distended, abdominal pain, black stools, tarry stools, blood in stool, constipated, diarrhea, difficulty swallowing, nausea, poor appetite, poor fluid intake, rectal bleeding , vomiting, other Genitourinary: Denies: no symptoms, burning, discharge, frequency, flank pain, hematuria, incontinence, pain, urgency, other Neurologic/Psychiatric: Denies: no symptoms, anxiety, depressed, emotional problems, headache, numbness, paresthesia, pre-existing deficit, seizure, tingling, tremors, weakness, other Endocrine: Denies: no symptoms, excessive sweating, flushing, intolerance to cold, intolerance to heat, increased hunger, increased thirst, increased urine, unexplained weight gain, unexplained weight loss, other Hematologic/Lymphatic: Denies: no symptoms, anemia, easy bleeding, easy bruising, adenopathy, other Allergies: Coded Allergies: RISPERIDONE (Unverified Allergy, Unknown, 07/04/18) ZIPRASIDONE (Verified Allergy, Unknown, 06/30/18) Subjective 11/06: Pt resting in bed. No acute distress. DC planning. 11/08: Pt asleep in bed. No acute events. 11/10: Pt stable, no signs of acute distress or SOB. Venous duplex negative. 11/11: Pt resting in bed. Afebrile, no sob. MRI brain pending. 11/12: Pt in bed, sleeping. No respiratory distress noted. DC planning. 11/13: Pt awake and alert, refused morning meds. No signs of SOB or pain observed. Plt count significantly improved overnight. 11/15: Pt denies pain, no complaints of dyspnea 11/17: Pt resting in bed no chest pain or dyspnea, no other complaints 11/18: unable to place picc given do not have consent 11/20: no acute events reported. 11/21: pt refused am labs as well as am meds. h/h stable from prior labs. 11/22: pt no acute distress. Afebrile, VS reviewed. 11/23: no events reported, no f/c noted 11/24: refusing to participate in exam, labs have been reviewed 11/25: eating ensure this am, discharge planning pending, dw CM 11/26: on noac, continues, no bleeding, hgb is 11.2 11/27: refusing labs this am, discussed with him importance 11/28: resting comfortably, no acute events, no bleeding reported, no night sweats 11/29: no events, no bleeding reported, no night sweats 11/30: no events, no bleeding, no chills, no major night sweats 12/01: getting rehab, pt/ot as needed, no f/c 12/02: walking around the priest with a FWW, says feeling better 12/03: given ativan overnight, feeling better 12/04: awake and alert, no acute events, placement pending 12/05: awake and alert, resting in bed, no acute events. 12/06: anxious and aggravated, vs stable, placement pending per rn case management 12/07: no events to report, no f/c, no night sweats refusing po, will start on mirtazpine 12/08: no events noted, no f/c, no night sweats, no bleeding noted 12/09: no events, eating breakfast, cbc again reordered 12/10: no fevers or chills noted, no bleeding, no events, pending placement 12/11: walking around in hallway, no complaints, eating 12/12: labs reviewed, cbc still refusing in the am 12/13: asleep, still refusing labs, no fc 12/14: no events noted, no bleeding, no fc 12/15: not agitated, sinemet has been started per neuro 12/16: dc when public guardian raises money 12/17: dc planning as early as today, alert no complaints this am 12/18: no f/c, no night sweats, no bleeding noted 12/20: is on eliquis, sleeping, i woke him up, again refusing cbc Objective Objective Current Medications Medications (Trade) Dose Ordered Sig/Eduardo Route PRN Reason Start Time Stop Time Status Last Admin Dose Admin Acetaminophen (Tylenol) 650 mg Q4H PRN ORAL Mild Pain/Temp > 100.5 12/02/18 01:00 01/01/19 00:59 12/06/18 00:22 Apixaban (Eliquis) 5 mg BID ORAL 12/05/18 15:00 01/04/19 14:59 12/19/18 17:49 Diltiazem HCl (Cardizem CD) 120 mg DAILY ORAL 11/21/18 10:50 12/21/18 10:49 12/19/18 10:09 Lisinopril (Prinivil) 20 mg DAILY ORAL 11/22/18 09:00 12/22/18 08:59 12/19/18 10:08 Mirtazapine (Remeron) 7.5 mg BEDTIME ORAL 12/07/18 21:00 01/06/19 20:59 12/19/18 21:12 Last 24 Hour Vital Signs Date Time Temp Pulse Resp B/P (MAP) Pulse Ox O2 Delivery O2 Flow Rate FiO2 12/20/18 08:00 98.0 71 19 110/71 (84) 97 12/19/18 21:00 Room Air 12/19/18 16:00 98.2 63 19 107/67 (80) 99 12/19/18 12:00 98.4 92 19 144/83 (103) 97 12/19/18 10:09 63 126/71 12/19/18 10:08 126/71 12/19/18 09:00 Room Air 12/19/18 08:00 97.7 63 19 126/71 (89) 97 12/19/18 04:00 97.0 77 18 112/80 (91) 98 12/18/18 21:00 Room Air 12/18/18 20:00 97.5 88 18 124/83 (97) 97 12/18/18 16:00 97.5 76 18 121/83 (96) 98 Intake and Output 12/19/18 12/20/18 18:59 06:59 Intake Total 800 ml 240 ml Balance 800 ml 240 ml Intake Oral 800 ml 240 ml Height (Feet): 5 Height (Inches): 6.00 Weight (Pounds): 122 Objective PE: VITAL SIGNS: Have been reviewed. CHEST: Clear to auscultation. CV: Regular rate and rhythm. No murmurs or extra sounds. GASTROINTESTINAL: Soft, nontender, and nondistended. No organomegaly. EXTREMITIES: No edema. Moves all four extremities. NEUROLOGIC: Sensory intact to light touch. Reflexes are equal on both sides. Kleynberg,Bennie L. MD Dec 20, 2018 09:20
[2018-12-20] MEDS: dilTIAZem HCl CD 120mg cap ORAL SCH (09:33)
[2018-12-20] MEDS: Lisinopril 20mg tab ORAL SCH (09:33)
[2018-12-20] MEDS: Eliquis 5mg tablet ORAL SCH ×2 (09:33→17:56)
--- NOTE | 2018-12-20 12:21 | General Progress Note ---
Assessment/Plan Status: stable, unchanged Assessment/Plan: Assessment/Plan Status: stable, unchanged Assessment/Plan: 63 y/o man with hx of paroxysmal atrial fibrillation, presented to the hospital with pre-syncope, found to have rapid atrial fibrillation. # Hypotension - lisinopril stopped - Monitor BP #Paroxysmal Atrial Fibrillation #Atrial fibrillation with RVR - Cont beta zack and Diltiazem for rate control - holding parameters. - Cont NOAC.. - echo did not show any remarkable changes - Apprec cardiology recs #Anemia due to chronic illness #Thrombocytopenia - Hgb and platelet count appeared to be at baseline, seen by Hematology, no new changes recommended. Labs stable. #unstable gait -continue PT - PATIENT WILL NEED TO BE WITHOUT FWW in order to return to his [facility]. Recommend DC to assisted living facility at [place] per PT final report. Otherwise, will need new placement. assistant portfolio manager follow up is needed. SW note for conservator reviewed. I DO NOT UNDERSTAND WHY THE CONSERVATOR REFUSED TO PLACE THE PATIENT BACK TO HIS STACY - per discussion with RN. NEED TO HAVE SW follow up on this DAVID. ? Formal complain for conservator and request new conservator vs other legal action. #Behavorial disorder -psych meds restarted -psychiatry consulted # Disposition Difficult placement. Per nurse case management no insurance available. [facility]. Need to continue efforts by CM and SW to place. WENDY spoke with Daily Sequeira [phone] who states Veronica spoke with SSI and patient' s SSI will be reinstated December 17. WENDY inquired about placement. Daily indicted she will contact various board and cares but could not guarantee she would locate placement due to patient currently not having income. ( PER DISCUSSION WITH RN, CURRENT CONSERVATOR MANAGES THE PATIENT'S MONEY) WENDY updated CM. Will continue to follow up. Medically stable for discharge when placement is approved. Subjective ROS Limited/Unobtainable: Yes Allergies: Coded Allergies: RISPERIDONE (Unverified Allergy, Unknown, 07/04/18) ZIPRASIDONE (Verified Allergy, Unknown, 06/30/18) Objective Last 24 Hour Vital Signs Date Time Temp Pulse Resp B/P (MAP) Pulse Ox O2 Delivery O2 Flow Rate FiO2 12/20/18 09:33 110/71 12/20/18 09:33 71 110/71 12/20/18 08:00 98.0 71 19 110/71 (84) 97 12/19/18 21:00 Room Air 12/19/18 16:00 98.2 63 19 107/67 (80) 99 Intake and Output 12/19/18 12/20/18 18:59 06:59 Intake Total 800 ml 240 ml Balance 800 ml 240 ml Intake Oral 800 ml 240 ml Height (Feet): 5 Height (Inches): 6.00 Weight (Pounds): 122 General Appearance: WD/WN EENT: PERRL/EOMI Neck: non-tender Cardiovascular: normal rate Abdomen: non tender Edema: trace edema Neurologic: leg man II-XII grossly normal Galo Wallis MD Dec 20, 2018 12:21
--- NOTE | 2018-12-20 17:25 | NUR ---
CASE MANAGEMENT: REVIEW SI: PRE-SYNCOPE . A-FIB T 98.0 HR 71 RR 19 BP 110/71 SAT 97 ROOM AIR IS: ELEQUIS PO BID DILTIAZEM PO QD LISINOPRIL PO QD MED/SURG STATUS DCP: PATIENT IS FROM [facility]
--- NOTE | 2018-12-20 19:25 | NUR ---
HAND-OFF: Report given to Zander JARAMILLO.
--- NOTE | 2018-12-20 19:30 | NUR ---
NURSE NOTES: Receive a report from ELLA Serrano. Pt is lying in bed. Breathing is even and non labored. No acute distress noted. No pain noted. Call light within reach. Bed is locked and lowest. Bed alarm is on. Will continue to monitor.
[2018-12-20 20:00] VITALS: BP 115/75
--- NOTE | 2018-12-21 07:25 | NUR ---
HAND-OFF: Report given to ELLA Sams. Done rounds.
--- NOTE | 2018-12-21 07:30 | NUR ---
NURSE NOTES: Patient is in bed asleep. Stable. No facial grimacing or signs of distress noted. Patient is in bed in locked and lowest position with call light within reach. All safety measures provided. Will continue to monitor.
[2018-12-21 08:00] VITALS: BP 124/80
[2018-12-21] MEDS: dilTIAZem HCl CD 120mg cap ORAL SCH (08:48)
[2018-12-21] MEDS: Lisinopril 20mg tab ORAL SCH (08:48)
[2018-12-21] MEDS: Eliquis 5mg tablet ORAL SCH ×2 (08:48→17:36)
[2018-12-21 12:00] VITALS: BP 134/85
--- NOTE | 2018-12-21 14:39 | General Progress Note ---
Assessment/Plan Status: stable, unchanged Assessment/Plan: 63 y/o man with hx of paroxysmal atrial fibrillation, presented to the hospital with pre-syncope, found to have rapid atrial fibrillation now pending placement # Hypotension- resolved - Monitor BP #Paroxysmal Atrial Fibrillation #Atrial fibrillation with RVR - Cont beta zack and Diltiazem for rate control - holding parameters. - Cont NOAC.. - echo did not show any remarkable changes - Apprec cardiology recs #Anemia due to chronic illness #Thrombocytopenia - Hgb and platelet count appeared to be at baseline, seen by Hematology, no new changes recommended. Labs stable. #unstable gait -continue PT - PATIENT WILL NEED TO BE WITHOUT FWW in order to return to his [facility]. Recommend DC to assisted living facility at [place] per PT final report. Otherwise, will need new placement. heavy equipment service manager follow up is needed. SW note for conservator reviewed. I DO NOT UNDERSTAND WHY THE CONSERVATOR REFUSED TO PLACE THE PATIENT BACK TO HIS STACY - per discussion with RN. NEED TO HAVE SW follow up on this DAVID. ? Formal complain for conservator and request new conservator vs other legal action. #Behavorial disorder -psych meds restarted -psychiatry consulted # Disposition Difficult placement. Per director case no insurance available. [facility]. Need to continue efforts by CM and SW to place. WENDY spoke with Daily Sequeira [phone] who states Veronica spoke with SSI and patient' s SSI will be reinstated December 17. WENDY inquired about placement. Daily indicted she will contact various board and cares but could not guarantee she would locate placement due to patient currently not having income. ( PER DISCUSSION WITH RN, CURRENT CONSERVATOR MANAGES THE PATIENT'S MONEY) WENDY updated CM. Will continue to follow up. Medically stable for discharge when placement is approved. Subjective Date patient seen: Dec 21, 2018 ROS Limited/Unobtainable: Yes Allergies: Coded Allergies: RISPERIDONE (Unverified Allergy, Unknown, 07/04/18) ZIPRASIDONE (Verified Allergy, Unknown, 06/30/18) Subjective unreliable historian says he is well, denies cp, fevers, chills Objective Last 24 Hour Vital Signs Date Time Temp Pulse Resp B/P (MAP) Pulse Ox O2 Delivery O2 Flow Rate FiO2 12/21/18 12:00 98.4 83 18 134/85 (101) 95 12/21/18 09:00 Room Air 12/21/18 08:48 124/80 12/21/18 08:48 77 124/80 12/21/18 08:00 98.6 77 20 124/80 (95) 94 12/20/18 21:00 Room Air 12/20/18 20:00 98.2 75 18 115/75 (88) 97 Intake and Output 12/20/18 12/21/18 18:59 06:59 Intake Total 100 ml Balance 100 ml Intake Oral 100 ml # Voids 2 Height (Feet): 5 Height (Inches): 6.00 Weight (Pounds): 122 General Appearance: WD/WN, no apparent distress, alert Neck: non-tender, normal alignment, supple Cardiovascular: normal peripheral pulses, normal rate, regularly irregular Respiratory/Chest: no respiratory distress Abdomen: normal bowel sounds, non tender, soft Extremities: normal range of motion Edema: no edema noted Arm (L), no edema noted Arm (R), no edema noted Leg (L), no edema noted Leg (R), no edema noted Pedal (L), no edema noted Pedal (R), no edema noted Generalized Neurologic: housekeeping aid II-XII grossly normal Oriana Jalloh DO Dec 21, 2018 14:39
--- NOTE | 2018-12-21 15:40 | NUR ---
OIL REFINERY OPERATORMECHANICAL ASSEMBLY SI: GI BLEED T. 98.4 HR 83 RR 18 B/P 134/85 RA 98% IS: REMERON PO' ELIQUISE PO PRINIVIL PO PLACEMENT PENDING MED/SURG STATUS
--- NOTE | 2018-12-21 15:49 | Hematology/Onc Progress Note ---
Assessment/Plan Assessment/Plan # Anemia of chronic disease due to underlying chronic medical issues, multifactorial --> Anemia workup has been reviewed. Ferritin 83, TIBC 242 --> No evidence of hemolysis is noted, peripheral smear has been reviewed. --> Hgb goal >7. Transfuse prn. --> Epogen or iron at this time is not particularly indicated --> Medications have been reviewed --> hgb trend 14.1-->12.5--> 12.3-->11-->11.2-->10 --> still has been refusing labs # Thrombocytopenia - potential causes multifactorial, evaluate liver and viral etiologies to begin, also could be related to underlying medications patient has received. --> Hep panel and HIV on PRIOR admission was negative --> US abd negative for cirrhosis and hsm --> Peripheral smear ordered to evaluate for blasts/schistocytes, none noted --> abx and other meds have been reviewed (one contributor could be depakote) --> ok for ppx if plt >50k w/ either heparin or lovenox --> Plt trend 118-->169k-->187k--> 102K->133k-->154k-->182k # FTT with decreased bmi on admission --> began on mirtazapine, to continue --> daily weight and monitor # Atelectasis, optimize pulmonary hygiene/mobilize as tolerated --> on cxr appears stable --> per pulm recs # Paroxysmal AFib, per cardiology recs--> on noac --> on eliquis (ok to continue) # Hypertension --> controlled, sbp goal <140 --> as per cards # Hypothyroidism --> Synthroid po to continue # Lactic acidosis --> has resolved # MACARENA which has resolved --> per renal care # Placement pending --> rehab, and pt/ot The timing of this note does not necessarily reflect the time of the patient was seen. Greatly appreciate consultation! Subjective HEENT: Denies: no symptoms, eye pain, blurred vision, tearing, double vision, ear pain, ear discharge, nose pain, nose congestion, throat pain, throat swelling, mouth pain, mouth swelling, other Cardiovascular: Denies: no symptoms, chest pain, edema, irregular heart rate, lightheadedness, palpitations, syncope, other Respiratory: Denies: no symptoms, cough, shortness of breath, SOB with excertion, SOB at rest, sputum, wheezing, other Gastrointestinal/Abdominal: Denies: no symptoms, abdomen distended, abdominal pain, black stools, tarry stools, blood in stool, constipated, diarrhea, difficulty swallowing, nausea, poor appetite, poor fluid intake, rectal bleeding , vomiting, other Genitourinary: Denies: no symptoms, burning, discharge, frequency, flank pain, hematuria, incontinence, pain, urgency, other Neurologic/Psychiatric: Denies: no symptoms, anxiety, depressed, emotional problems, headache, numbness, paresthesia, pre-existing deficit, seizure, tingling, tremors, weakness, other Endocrine: Denies: no symptoms, excessive sweating, flushing, intolerance to cold, intolerance to heat, increased hunger, increased thirst, increased urine, unexplained weight gain, unexplained weight loss, other Allergies: Coded Allergies: RISPERIDONE (Unverified Allergy, Unknown, 07/04/18) ZIPRASIDONE (Verified Allergy, Unknown, 06/30/18) Subjective 11/06: Pt resting in bed. No acute distress. DC planning. 11/08: Pt asleep in bed. No acute events. 11/10: Pt stable, no signs of acute distress or SOB. Venous duplex negative. 11/11: Pt resting in bed. Afebrile, no sob. MRI brain pending. 11/12: Pt in bed, sleeping. No respiratory distress noted. DC planning. 11/13: Pt awake and alert, refused morning meds. No signs of SOB or pain observed. Plt count significantly improved overnight. 11/15: Pt denies pain, no complaints of dyspnea 11/17: Pt resting in bed no chest pain or dyspnea, no other complaints 11/18: unable to place picc given do not have consent 11/20: no acute events reported. 11/21: pt refused am labs as well as am meds. h/h stable from prior labs. 11/22: pt no acute distress. Afebrile, VS reviewed. 11/23: no events reported, no f/c noted 11/24: refusing to participate in exam, labs have been reviewed 11/25: eating ensure this am, discharge planning pending, deandre FERRARI 11/26: on noac, continues, no bleeding, hgb is 11.2 11/27: refusing labs this am, discussed with him importance 11/28: resting comfortably, no acute events, no bleeding reported, no night sweats 11/29: no events, no bleeding reported, no night sweats 11/30: no events, no bleeding, no chills, no major night sweats 12/01: getting rehab, pt/ot as needed, no f/c 12/02: walking around the priest with a FWW, says feeling better 12/03: given ativan overnight, feeling better 12/04: awake and alert, no acute events, placement pending 12/05: awake and alert, resting in bed, no acute events. 12/06: anxious and aggravated, vs stable, placement pending per patient case coordinator 12/07: no events to report, no f/c, no night sweats refusing po, will start on mirtazpine 12/08: no events noted, no f/c, no night sweats, no bleeding noted 12/09: no events, eating breakfast, cbc again reordered 12/10: no fevers or chills noted, no bleeding, no events, pending placement 12/11: walking around in hallway, no complaints, eating 12/12: labs reviewed, cbc still refusing in the am 12/13: asleep, still refusing labs, no fc 12/14: no events noted, no bleeding, no fc 12/15: not agitated, sinemet has been started per neuro 12/16: dc when public guardian raises money 12/17: dc planning as early as today, alert no complaints this am 12/18: no f/c, no night sweats, no bleeding noted 12/20: is on eliquis, sleeping, i woke him up, again refusing cbc 12/21: no bleeding, no chill, no night sweats, examined with rn, refusing to be seen Objective Objective Current Medications Medications (Trade) Dose Ordered Sig/Eduardo Route PRN Reason Start Time Stop Time Status Last Admin Dose Admin Acetaminophen (Tylenol) 650 mg Q4H PRN ORAL Mild Pain/Temp > 100.5 12/02/18 01:00 01/01/19 00:59 12/06/18 00:22 Apixaban (Eliquis) 5 mg BID ORAL 12/05/18 15:00 01/04/19 14:59 12/21/18 08:48 Lisinopril (Prinivil) 20 mg DAILY ORAL 11/22/18 09:00 12/22/18 08:59 12/21/18 08:48 Mirtazapine (Remeron) 7.5 mg BEDTIME ORAL 12/07/18 21:00 01/06/19 20:59 12/20/18 22:13 Last 24 Hour Vital Signs Date Time Temp Pulse Resp B/P (MAP) Pulse Ox O2 Delivery O2 Flow Rate FiO2 12/21/18 12:00 98.4 83 18 134/85 (101) 95 12/21/18 09:00 Room Air 12/21/18 08:48 124/80 12/21/18 08:48 77 124/80 12/21/18 08:00 98.6 77 20 124/80 (95) 94 12/20/18 21:00 Room Air 12/20/18 20:00 98.2 75 18 115/75 (88) 97 12/20/18 09:33 110/71 12/20/18 09:33 71 110/71 12/20/18 09:00 Room Air 12/20/18 08:00 98.0 71 19 110/71 (84) 97 12/19/18 21:00 Room Air 12/19/18 16:00 98.2 63 19 107/67 (80) 99 Intake and Output 12/20/18 12/21/18 18:59 06:59 Intake Total 100 ml Balance 100 ml Intake Oral 100 ml # Voids 2 Height (Feet): 5 Height (Inches): 6.00 Weight (Pounds): 122 Objective PE: VITAL SIGNS: Have been reviewed. CHEST: Clear to auscultation. CV: Regular rate and rhythm. No murmurs or extra sounds. GASTROINTESTINAL: Soft, nontender, and nondistended. No organomegaly. EXTREMITIES: No edema. Moves all four extremities. NEUROLOGIC: Sensory intact to light touch. Reflexes are equal on both sides. Bennie Goss MD Dec 21, 2018 15:49
[2018-12-21 16:00] VITALS: BP 125/73
--- NOTE | 2018-12-21 17:01 | NUR ---
*-* INSURANCE *-* UPDATED CLINICALS AND REVIEWS HAVE BEEN FAXED TO: [facility] F:[phone]
--- NOTE | 2018-12-21 19:30 | NUR ---
HAND-OFF: Report given to Margie JARAMILLO. Patient is stable.
--- NOTE | 2018-12-21 19:30 | NUR ---
NURSE NOTES: Received report & pt from ELLA Sams. Pt lying in bed, a&ox2-3, in room air,a sleep but easily arousable. No s/s of acute distress & no c/o pain at this time. No IV access noted & MD aware per report. Bed in lowest position, call light within reach. Will continue to monitor.
[2018-12-21 21:50] VITALS: BP 149/89
--- NOTE | 2018-12-22 07:19 | NUR ---
HAND-OFF: Report given to ELLA Sams. Patient is in stable condition.
--- NOTE | 2018-12-22 07:30 | NUR ---
NURSE NOTES: Patient is in bed asleep. Stable. No facial grimacing or signs of distress noted. Breathing is even and unlabored. Patient in bed in locked and lowest position with call light within reach. All safety measures provided. Will continue to monitor.
[2018-12-22 08:00] VITALS: BP 117/69
[2018-12-22] MEDS: dilTIAZem HCl CD 120mg cap ORAL SCH (09:07)
[2018-12-22] MEDS: Eliquis 5mg tablet ORAL SCH ×2 (09:08→17:49)
[2018-12-22] MEDS: Lisinopril 20mg tab ORAL SCH ×2 (09:11→09:30)
--- NOTE | 2018-12-22 12:44 | NUR ---
Social Work This Sw followed up with the following facilities for placement: 1) [facility] (spoke with Ronal)- declined the patient due. 2) [facility] ([phone]) explains payment required is 2500 per month, with 500 dollar admission fee (Pending amount patient can pay from his SSI) 3) [facility] (spoke with Kiley): [phone]: declined patient due to non-compliance with the assessment process, when visiting patient here. 4) [facility]: (placement agency) explains Prublic Guardian will not have payment (SSI reinstated) until the end of December (no payment available for placement at this time). This SW left a message for Public Guardian, Daily Sequeira ([phone]) to verify whether SSI has been reinstated (according to WENDY Pineda notes, SSI was dropped and will not be reinstated until December). Patient will need some form of income (first months rent) for Board/Care or Assisted Living placement. Addendum: 12/23/18 at 0826 by DIPAK COMER 1) [facility] declined patient due to unknown reasons (Ronal would not disclose the information).
--- NOTE | 2018-12-22 14:45 | General Progress Note ---
Assessment/Plan Status: stable, unchanged Assessment/Plan: Internal Medicine Hospitalist Progress Note if after normal hours: 6p-8a please call [phone] 63 y/o man with hx of paroxysmal atrial fibrillation, presented to the hospital with pre-syncope, found to have rapid atrial fibrillation now pending placement # Hypotension- resolved - Monitor BP #Paroxysmal Atrial Fibrillation #Atrial fibrillation with RVR, controlled - Cont beta zack and Diltiazem for rate control - holding parameters. - Cont NOAC.. - echo did not show any remarkable changes - Apprec cardiology recs #Anemia due to chronic illness #Thrombocytopenia - Hgb and platelet count appeared to be at baseline, seen by Hematology, no new changes recommended. Labs stable. #unstable gait -continue PT - PATIENT WILL NEED TO BE WITHOUT FWW in order to return to his [facility]. Recommend DC to assisted living facility at [place] per PT final report. Otherwise, will need new placement. regulatory product manager follow up is needed. SW note for conservator reviewed. I DO NOT UNDERSTAND WHY THE CONSERVATOR REFUSED TO PLACE THE PATIENT BACK TO HIS STACY - per discussion with RN. NEED TO HAVE SW follow up on this DAVID. ? Formal complain for conservator and request new conservator vs other legal action. #Behavorial disorder -psych meds restarted -psychiatry consulted # Disposition Difficult placement. Per senior case manager no insurance available. [facility] reported [facility]. Need to continue efforts by CM and SW to place. WENDY spoke with Daily Sequeira [phone] who states Veronica spoke with SSI and patient' s SSI will be reinstated December 17. WENDY inquired about placement. Daily indicted she will contact various board and cares but could not guarantee she would locate placement due to patient currently not having income. ( PER DISCUSSION WITH RN, CURRENT CONSERVATOR MANAGES THE PATIENT'S MONEY) WENDY updated CM. Will continue to follow up. Medically stable for discharge when placement is approved. Subjective Date patient seen: Dec 22, 2018 Time patient seen: 12:00 Allergies: Coded Allergies: RISPERIDONE (Unverified Allergy, Unknown, 07/04/18) ZIPRASIDONE (Verified Allergy, Unknown, 06/30/18) Subjective unreliable historian says he is well, eating his pudding at bedside denies seizures or elam Objective Last 24 Hour Vital Signs Date Time Temp Pulse Resp B/P (MAP) Pulse Ox O2 Delivery O2 Flow Rate FiO2 8/6/19 09:11 117/69 12/22/18 09:07 89 117/69 12/22/18 09:00 Room Air 12/22/18 08:00 98.3 89 16 117/69 (85) 97 12/21/18 21:50 98.1 88 16 149/89 (109) 98 12/21/18 21:00 Room Air 12/21/18 16:00 98.1 60 20 125/73 (90) 97 Intake and Output 12/21/18 12/22/18 18:59 06:59 Intake Total 240 ml 240 ml Balance 240 ml 240 ml Intake Oral 240 ml 240 ml # Voids 2 4 Height (Feet): 5 Height (Inches): 6.00 Weight (Pounds): 122 General Appearance: WD/WN, no apparent distress, alert EENT: PERRL/EOMI, normal ENT inspection Neck: non-tender, normal alignment, supple Cardiovascular: normal peripheral pulses, normal rate, regular rhythm Respiratory/Chest: lungs clear, normal breath sounds, no respiratory distress Abdomen: normal bowel sounds, non tender, soft Extremities: normal range of motion, non-tender Edema: no edema noted Arm (L), no edema noted Arm (R), no edema noted Leg (L), no edema noted Leg (R), no edema noted Pedal (L), no edema noted Pedal (R), no edema noted Generalized Neurologic: metropolitan editor II-XII grossly normal Oriana Jalloh DO Dec 22, 2018 14:45
--- NOTE | 2018-12-22 15:08 | NUR ---
*-* INSURANCE *-* UPDATED CLINICALS HAVE BEEN FAXED TO: [facility] F:[phone]
--- NOTE | 2018-12-22 15:32 | Hematology/Onc Progress Note ---
Assessment/Plan Assessment/Plan # Anemia of chronic disease due to underlying chronic medical issues, multifactorial --> Anemia workup has been reviewed. Ferritin 83, TIBC 242 --> No evidence of hemolysis is noted, peripheral smear has been reviewed. --> Hgb goal >7. Transfuse prn. --> Epogen or iron at this time is not particularly indicated --> Medications have been reviewed --> hgb trend 14.1-->12.5--> 12.3-->11-->11.2-->10 --> still has been refusing labs # Thrombocytopenia - potential causes multifactorial, evaluate liver and viral etiologies to begin, also could be related to underlying medications patient has received. --> Hep panel and HIV on PRIOR admission was negative --> US abd negative for cirrhosis and hsm --> Peripheral smear ordered to evaluate for blasts/schistocytes, none noted --> abx and other meds have been reviewed (one contributor could be depakote) --> ok for ppx if plt >50k w/ either heparin or lovenox --> Plt trend 118-->169k-->187k--> 102K->133k-->154k-->182k # FTT with decreased bmi on admission --> began on mirtazapine, to continue --> daily weight and monitor # Atelectasis, optimize pulmonary hygiene/mobilize as tolerated --> on cxr appears stable --> per pulm recs # Paroxysmal AFib, per cardiology recs--> on noac --> on eliquis (ok to continue) # Hypertension --> controlled, sbp goal <140 --> as per cards # Hypothyroidism --> Synthroid po to continue # Lactic acidosis --> has resolved # MACARENA which has resolved --> per renal care # Placement pending --> rehab, and pt/ot The timing of this note does not necessarily reflect the time of the patient was seen. Greatly appreciate consultation! Subjective HEENT: Denies: no symptoms, eye pain, blurred vision, tearing, double vision, ear pain, ear discharge, nose pain, nose congestion, throat pain, throat swelling, mouth pain, mouth swelling, other Cardiovascular: Denies: no symptoms, chest pain, edema, irregular heart rate, lightheadedness, palpitations, syncope, other Respiratory: Denies: no symptoms, cough, shortness of breath, SOB with excertion, SOB at rest, sputum, wheezing, other Gastrointestinal/Abdominal: Denies: no symptoms, abdomen distended, abdominal pain, black stools, tarry stools, blood in stool, constipated, diarrhea, difficulty swallowing, nausea, poor appetite, poor fluid intake, rectal bleeding , vomiting, other Genitourinary: Denies: no symptoms, burning, discharge, frequency, flank pain, hematuria, incontinence, pain, urgency, other Neurologic/Psychiatric: Denies: no symptoms, anxiety, depressed, emotional problems, headache, numbness, paresthesia, pre-existing deficit, seizure, tingling, tremors, weakness, other Endocrine: Denies: no symptoms, excessive sweating, flushing, intolerance to cold, intolerance to heat, increased hunger, increased thirst, increased urine, unexplained weight gain, unexplained weight loss, other Hematologic/Lymphatic: Denies: no symptoms, anemia, easy bleeding, easy bruising, adenopathy, other Allergies: Coded Allergies: RISPERIDONE (Unverified Allergy, Unknown, 07/04/18) ZIPRASIDONE (Verified Allergy, Unknown, 06/30/18) Subjective 11/06: Pt resting in bed. No acute distress. DC planning. 11/08: Pt asleep in bed. No acute events. 11/10: Pt stable, no signs of acute distress or SOB. Venous duplex negative. 11/11: Pt resting in bed. Afebrile, no sob. MRI brain pending. 11/12: Pt in bed, sleeping. No respiratory distress noted. DC planning. 11/13: Pt awake and alert, refused morning meds. No signs of SOB or pain observed. Plt count significantly improved overnight. 11/15: Pt denies pain, no complaints of dyspnea 11/17: Pt resting in bed no chest pain or dyspnea, no other complaints 11/18: unable to place picc given do not have consent 11/20: no acute events reported. 11/21: pt refused am labs as well as am meds. h/h stable from prior labs. 11/22: pt no acute distress. Afebrile, VS reviewed. 11/23: no events reported, no f/c noted 11/24: refusing to participate in exam, labs have been reviewed 11/25: eating ensure this am, discharge planning pending, dw CM 11/26: on noac, continues, no bleeding, hgb is 11.2 11/27: refusing labs this am, discussed with him importance 11/28: resting comfortably, no acute events, no bleeding reported, no night sweats 11/29: no events, no bleeding reported, no night sweats 11/30: no events, no bleeding, no chills, no major night sweats 12/01: getting rehab, pt/ot as needed, no f/c 12/02: walking around the priest with a FWW, says feeling better 12/03: given ativan overnight, feeling better 12/04: awake and alert, no acute events, placement pending 12/05: awake and alert, resting in bed, no acute events. 12/06: anxious and aggravated, vs stable, placement pending per business case analyst 12/07: no events to report, no f/c, no night sweats refusing po, will start on mirtazpine 12/08: no events noted, no f/c, no night sweats, no bleeding noted 12/09: no events, eating breakfast, cbc again reordered 12/10: no fevers or chills noted, no bleeding, no events, pending placement 12/11: walking around in hallway, no complaints, eating 12/12: labs reviewed, cbc still refusing in the am 12/13: asleep, still refusing labs, no fc 12/14: no events noted, no bleeding, no fc 12/15: not agitated, sinemet has been started per neuro 12/16: dc when public guardian raises money 12/17: dc planning as early as today, alert no complaints this am 12/18: no f/c, no night sweats, no bleeding noted 12/20: is on eliquis, sleeping, i woke him up, again refusing cbc 12/21: no bleeding, no chill, no night sweats, examined with rn, refusing to be seen 12/22: no events to report, no bleeding, no f/c Objective Objective Current Medications Medications (Trade) Dose Ordered Sig/Eduardo Route PRN Reason Start Time Stop Time Status Last Admin Dose Admin Acetaminophen (Tylenol) 650 mg Q4H PRN ORAL Mild Pain/Temp > 100.5 12/02/18 01:00 01/01/19 00:59 12/06/18 00:22 Apixaban (Eliquis) 5 mg BID ORAL 12/05/18 15:00 01/04/19 14:59 12/22/18 09:08 Diltiazem HCl (Cardizem CD) 120 mg DAILY ORAL 12/22/18 09:00 01/21/19 08:59 12/22/18 09:07 Lisinopril (Prinivil) 20 mg DAILY ORAL 12/22/18 09:30 01/21/19 09:29 Mirtazapine (Remeron) 7.5 mg BEDTIME ORAL 12/07/18 21:00 01/06/19 20:59 12/21/18 21:45 Last 24 Hour Vital Signs Date Time Temp Pulse Resp B/P (MAP) Pulse Ox O2 Delivery O2 Flow Rate FiO2 12/22/18 09:11 117/69 12/22/18 09:07 89 117/69 12/22/18 09:00 Room Air 12/22/18 08:00 98.3 89 16 117/69 (85) 97 12/21/18 21:50 98.1 88 16 149/89 (109) 98 12/21/18 21:00 Room Air 12/21/18 16:00 98.1 60 20 125/73 (90) 97 12/21/18 12:00 98.4 83 18 134/85 (101) 95 12/21/18 09:00 Room Air 12/21/18 08:48 124/80 12/21/18 08:48 77 124/80 12/21/18 08:00 98.6 77 20 124/80 (95) 94 12/20/18 21:00 Room Air 12/20/18 20:00 98.2 75 18 115/75 (88) 97 Intake and Output 12/21/18 12/22/18 18:59 06:59 Intake Total 240 ml 240 ml Balance 240 ml 240 ml Intake Oral 240 ml 240 ml # Voids 2 4 Height (Feet): 5 Height (Inches): 6.00 Weight (Pounds): 122 Objective PE: VITAL SIGNS: Have been reviewed. CHEST: Clear to auscultation. CV: Regular rate and rhythm. No murmurs or extra sounds. GASTROINTESTINAL: Soft, nontender, and nondistended. No organomegaly. EXTREMITIES: No edema. Moves all four extremities. NEUROLOGIC: Sensory intact to light touch. Reflexes are equal on both sides. Bennie Goss MD Dec 22, 2018 15:32
--- NOTE | 2018-12-22 17:25 | NUR ---
STOP ATTACHER NOTES PT PENDING PLACEMENT. DCP ONGOING.
--- NOTE | 2018-12-22 19:30 | NUR ---
HAND-OFF: Report given to Neville JARAMILLO. Patient is stable.
--- NOTE | 2018-12-22 19:30 | NUR ---
NURSE NOTES: Received report from ELLA Sams and rounds made with outgoing nurse. Received pt lying in bed asleep, easily arousable by verbal stimuli, AOX4, denies any pain, no distress noted. Bed in lowest position and locked, side rails up x 2, call light within reach. Will continue to monitor.
[2018-12-22 20:00] VITALS: BP 109/64
[2018-12-23] VITALS: BP 103/62
--- NOTE | 2018-12-23 07:15 | NUR ---
NURSE NOTES:beside rounds done,pt asleep on prone position,room air,no sign of pain.will continue plan of care.
--- NOTE | 2018-12-23 07:15 | NUR ---
HAND-OFF: Report given to ELLA Banerjee. Pt in stable condition.
[2018-12-23] MEDS: Eliquis 5mg tablet ORAL SCH ×2 (07:59→18:14)
[2018-12-23] MEDS: dilTIAZem HCl CD 120mg cap ORAL SCH (07:59)
[2018-12-23 08:00] VITALS: BP 134/70
[2018-12-23] MEDS: Lisinopril 20mg tab ORAL SCH (08:00)
--- NOTE | 2018-12-23 08:25 | NUR ---
NURSE NOTES:seen by dr. grider,aware re: pt.refusing labs.
--- NOTE | 2018-12-23 09:15 | NUR ---
Social Work This SW spoke with Public Guardian, Daily Sequeira ([phone]) who explains she is accepting of any facility that is Licensed for placement, recommending a locked facility. Public Guardian also confirmed that patient has SSI active and receiving $1194.00 per month. This Sw followed up with the following facilities for placement: 1) [facility] (did not accept due to no income); awaiting call return from intake, [facility] to [facility]. 2) [facility]: [phone] (do not have a locked facility) 3) [facility] ([phone]) explains they do not have a locked facility 4) [facility] ([phone]) has a locked facility; awaiting call back from intake 5) [facility] placement agency: [phone]: left a message to inform patient has income and Public Guardian accepting of any Licensed facility due being managed by Public Guardian (awaiting call return). This SW to follow with placement (will identify and contact facilities appropriate for patient).
--- NOTE | 2018-12-23 11:38 | NUR ---
Social Work Intake, Zakia @ [facility] (where patient is from) plans to reassess patient tomorrow for discharge back to his facility. This Sw also contacted placement agency, [facility] @ [phone] and faxed face sheet, H&P (fax [phone]) to evaluate patient for placement (possible opening at the following Assisted Living: [facility], [place], [place]).
--- NOTE | 2018-12-23 12:00 | NUR ---
NURSE NOTES:pt.had been sleeping most of the day,refused for lunch and other care,appears depressed,stated "leave me alone"
--- NOTE | 2018-12-23 13:46 | General Progress Note ---
Assessment/Plan Status: stable, unchanged Assessment/Plan: Internal Medicine Hospitalist Progress Note if after normal hours: 6p-8a please call [phone] 63 y/o man with hx of paroxysmal atrial fibrillation, presented to the hospital with pre-syncope, found to have rapid atrial fibrillation now pending placement # Disposition - notes reviewed, still pending placement Difficult placement. Per director of casework no insurance available. [facility] notes reported [facility]. Need to continue efforts by CM and SW to place. SW spoke with Daily Sequeira [phone] who states Veronica spoke with SSI and patient' s SSI will be reinstated December 17. SW inquired about placement. Daily indicted she will contact various board and cares but could not guarantee she would locate placement due to patient currently not having income. ( PER DISCUSSION WITH RN, CURRENT CONSERVATOR MANAGES THE PATIENT'S MONEY) WENDY updated CM. Will continue to follow up. # Hypotension- resolved - Monitor BP #Paroxysmal Atrial Fibrillation #Atrial fibrillation with RVR, controlled - Cont beta zack and Diltiazem for rate control - holding parameters. - Cont NOAC.. - echo did not show any remarkable changes - Apprec cardiology recs #Anemia due to chronic illness #Thrombocytopenia - Hgb and platelet count appeared to be at baseline, seen by Hematology, no new changes recommended. Labs stable. #unstable gait -continue PT - PATIENT WILL NEED TO BE WITHOUT FWW in order to return to his STACY. Recommend DC to assisted living facility at DC per PT final report. Otherwise, will need new placement. utility sales and service manager follow up is needed. SW note for conservator reviewed. I DO NOT UNDERSTAND WHY THE CONSERVATOR REFUSED TO PLACE THE PATIENT BACK TO HIS STACY - per discussion with RN. NEED TO HAVE SW follow up on this DAVID. ? Formal complain for conservator and request new conservator vs other legal action. #Behavorial disorder -psych meds restarted -psychiatry consulted Medically stable for discharge when placement is approved. Subjective Date patient seen: Dec 23, 2018 Time patient seen: 13:00 Allergies: Coded Allergies: RISPERIDONE (Unverified Allergy, Unknown, 07/04/18) ZIPRASIDONE (Verified Allergy, Unknown, 06/30/18) All Systems: reviewed and negative except above Subjective unreliable historian CORONA VSS, one time high sbp 160's Objective Last 24 Hour Vital Signs Date Time Temp Pulse Resp B/P (MAP) Pulse Ox O2 Delivery O2 Flow Rate FiO2 12/23/18 08:26 Room Air 12/23/18 08:00 162/89 12/23/18 08:00 96.0 91 17 134/70 (91) 96 12/23/18 07:59 112 162/89 12/23/18 00:00 97.7 82 17 103/62 (76) 96 12/22/18 21:00 Room Air 12/22/18 20:00 98.1 89 18 109/64 (79) 97 Intake and Output 12/22/18 12/23/18 19:00 07:00 Intake Total 800 ml 240 ml Balance 800 ml 240 ml Intake Oral 800 ml 240 ml # Voids 1 2 Height (Feet): 5 Height (Inches): 6.00 Weight (Pounds): 121 Neck: normal alignment Objective GEN: WWN, NAD, Alert CV: RRR, no M, R, G, no jvd RESP: CTAB, no w/r/c ABD: normal bowel sounds, soft, non tender EXT: normal muscle tone, no tenderness NEURO: grossly normal, no tremors, a x o x 3 Oriana Jalloh DO Dec 23, 2018 13:46
--- NOTE | 2018-12-23 14:47 | NUR ---
SS note This Sw left a message with britton Shaikh: ([phone]) to verify bed availability (awaiting call back at this time).
[2018-12-23 16:10] VITALS: BP 140/84
--- NOTE | 2018-12-23 17:11 | NUR ---
SMOKE CHASERCANVAS CUTTER HAND SI: GI BLEED T. 99.0 HR 94 RR 20 B/P 162/84 R/A 98% IS: PRINIVIL PO ELIQUISE PO PLACEMENT PENDING MED/SURG STATUS
--- NOTE | 2018-12-23 17:25 | Hematology/Onc Progress Note ---
Assessment/Plan Assessment/Plan # Anemia of chronic disease due to underlying chronic medical issues, multifactorial --> Anemia workup has been reviewed. Ferritin 83, TIBC 242 --> No evidence of hemolysis is noted, peripheral smear has been reviewed. --> Hgb goal >7. Transfuse prn. --> Epogen or iron at this time is not particularly indicated --> Medications have been reviewed --> hgb trend 14.1-->12.5--> 12.3-->11-->11.2-->10 --> still has been refusing labs # Thrombocytopenia - potential causes multifactorial, evaluate liver and viral etiologies to begin, also could be related to underlying medications patient has received. --> Hep panel and HIV on PRIOR admission was negative --> US abd negative for cirrhosis and hsm --> Peripheral smear ordered to evaluate for blasts/schistocytes, none noted --> abx and other meds have been reviewed (one contributor could be depakote) --> ok for ppx if plt >50k w/ either heparin or lovenox --> Plt trend 118-->169k-->187k--> 102K->133k-->154k-->182k # FTT with decreased bmi on admission --> began on mirtazapine, to continue --> daily weight and monitor # Atelectasis, optimize pulmonary hygiene/mobilize as tolerated --> on cxr appears stable --> per pulm recs # Paroxysmal AFib, per cardiology recs--> on noac --> on eliquis (ok to continue) # Hypertension --> controlled, sbp goal <140 --> as per cards # Hypothyroidism --> Synthroid po to continue # Lactic acidosis --> has resolved # MACARENA which has resolved --> per renal care # Placement pending --> rehab, and pt/ot The timing of this note does not necessarily reflect the time of the patient was seen. Greatly appreciate consultation! Subjective Constitutional: Denies: no symptoms, chills, fever, malaise, weakness, other HEENT: Denies: no symptoms, eye pain, blurred vision, tearing, double vision, ear pain, ear discharge, nose pain, nose congestion, throat pain, throat swelling, mouth pain, mouth swelling, other Cardiovascular: Denies: no symptoms, chest pain, edema, irregular heart rate, lightheadedness, palpitations, syncope, other Gastrointestinal/Abdominal: Denies: no symptoms, abdomen distended, abdominal pain, black stools, tarry stools, blood in stool, constipated, diarrhea, difficulty swallowing, nausea, poor appetite, poor fluid intake, rectal bleeding , vomiting, other Genitourinary: Denies: no symptoms, burning, discharge, frequency, flank pain, hematuria, incontinence, pain, urgency, other Neurologic/Psychiatric: Denies: no symptoms, anxiety, depressed, emotional problems, headache, numbness, paresthesia, pre-existing deficit, seizure, tingling, tremors, weakness, other Allergies: Coded Allergies: RISPERIDONE (Unverified Allergy, Unknown, 07/04/18) ZIPRASIDONE (Verified Allergy, Unknown, 06/30/18) Subjective 11/06: Pt resting in bed. No acute distress. DC planning. 11/08: Pt asleep in bed. No acute events. 11/10: Pt stable, no signs of acute distress or SOB. Venous duplex negative. 11/11: Pt resting in bed. Afebrile, no sob. MRI brain pending. 11/12: Pt in bed, sleeping. No respiratory distress noted. DC planning. 11/13: Pt awake and alert, refused morning meds. No signs of SOB or pain observed. Plt count significantly improved overnight. 11/15: Pt denies pain, no complaints of dyspnea 11/17: Pt resting in bed no chest pain or dyspnea, no other complaints 11/18: unable to place picc given do not have consent 11/20: no acute events reported. 11/21: pt refused am labs as well as am meds. h/h stable from prior labs. 11/22: pt no acute distress. Afebrile, VS reviewed. 11/23: no events reported, no f/c noted 11/24: refusing to participate in exam, labs have been reviewed 11/25: eating ensure this am, discharge planning pending, deandre FERRARI 11/26: on noac, continues, no bleeding, hgb is 11.2 11/27: refusing labs this am, discussed with him importance 11/28: resting comfortably, no acute events, no bleeding reported, no night sweats 11/29: no events, no bleeding reported, no night sweats 11/30: no events, no bleeding, no chills, no major night sweats 12/01: getting rehab, pt/ot as needed, no f/c 12/02: walking around the priest with a FWW, says feeling better 12/03: given ativan overnight, feeling better 12/04: awake and alert, no acute events, placement pending 12/05: awake and alert, resting in bed, no acute events. 12/06: anxious and aggravated, vs stable, placement pending per dependency case manager 12/07: no events to report, no f/c, no night sweats refusing po, will start on mirtazpine 12/08: no events noted, no f/c, no night sweats, no bleeding noted 12/09: no events, eating breakfast, cbc again reordered 12/10: no fevers or chills noted, no bleeding, no events, pending placement 12/11: walking around in hallway, no complaints, eating 12/12: labs reviewed, cbc still refusing in the am 12/13: asleep, still refusing labs, no fc 12/14: no events noted, no bleeding, no fc 12/15: not agitated, sinemet has been started per neuro 12/16: dc when public guardian raises money 12/17: dc planning as early as today, alert no complaints this am 12/18: no f/c, no night sweats, no bleeding noted 12/20: is on eliquis, sleeping, i woke him up, again refusing cbc 12/21: no bleeding, no chill, no night sweats, examined with rn, refusing to be seen 12/22: no events to report, no bleeding, no f/c 12/23: on eliquis, has been refusing POs, refusing exam too Objective Objective Current Medications Medications (Trade) Dose Ordered Sig/Eduardo Route PRN Reason Start Time Stop Time Status Last Admin Dose Admin Acetaminophen (Tylenol) 650 mg Q4H PRN ORAL Mild Pain/Temp > 100.5 12/02/18 01:00 01/01/19 00:59 12/06/18 00:22 Apixaban (Eliquis) 5 mg BID ORAL 12/05/18 15:00 01/04/19 14:59 12/23/18 07:59 Diltiazem HCl (Cardizem CD) 120 mg DAILY ORAL 12/22/18 09:00 01/21/19 08:59 12/23/18 07:59 Lisinopril (Prinivil) 20 mg DAILY ORAL 12/22/18 09:30 01/21/19 09:29 12/23/18 08:00 Mirtazapine (Remeron) 7.5 mg BEDTIME ORAL 12/07/18 21:00 01/06/19 20:59 12/22/18 21:27 Last 24 Hour Vital Signs Date Time Temp Pulse Resp B/P (MAP) Pulse Ox O2 Delivery O2 Flow Rate FiO2 12/23/18 16:10 98.3 73 18 140/84 (102) 93 12/23/18 08:26 Room Air 12/23/18 08:00 162/89 12/23/18 08:00 96.0 91 17 134/70 (91) 96 12/23/18 07:59 112 162/89 12/23/18 00:00 97.7 82 17 103/62 (76) 96 12/22/18 21:00 Room Air 12/22/18 20:00 98.1 89 18 109/64 (79) 97 12/22/18 09:11 117/69 12/22/18 09:07 89 117/69 12/22/18 09:00 Room Air 12/22/18 08:00 98.3 89 16 117/69 (85) 97 12/21/18 21:50 98.1 88 16 149/89 (109) 98 12/21/18 21:00 Room Air Intake and Output 12/22/18 12/23/18 18:59 06:59 Intake Total 800 ml 240 ml Balance 800 ml 240 ml Intake Oral 800 ml 240 ml # Voids 1 2 Height (Feet): 5 Height (Inches): 6.00 Weight (Pounds): 121 Objective PE: VITAL SIGNS: Have been reviewed. CHEST: Clear to auscultation. CV: Regular rate and rhythm. No murmurs or extra sounds. GASTROINTESTINAL: Soft, nontender, and nondistended. No organomegaly. EXTREMITIES: No edema. Moves all four extremities. NEUROLOGIC: Sensory intact to light touch. Reflexes are equal on both sides. Kleynberg,Bennie L. MD Dec 23, 2018 17:25
--- NOTE | 2018-12-23 19:06 | NUR ---
HAND-OFF: Report given to CECI MORRELL RN.PT.STABLE..
--- NOTE | 2018-12-23 19:15 | NUR ---
NURSE NOTES: Received report from ELLA Banerjee and rounds made with outgoing nurse. Received pt in bed sleeping, easily arousable by verbal stimuli, AOX4, denies any pain, no distress noted. Bed in lowest position and locked, side rails up x 2, call light within reach. Will continue to monitor.
[2018-12-23 20:00] VITALS: BP 115/73
--- NOTE | 2018-12-24 07:30 | NUR ---
HAND-OFF: Report given to ELLA Haque. Pt in stable condition.
--- NOTE | 2018-12-24 07:33 | NUR ---
NURSE NOTES: Received report from Neville/RN, Patient is asleep, No acute distress/ SOB noted. No IV access at this time. Bed in lowest position and locked, Call light within reach. Will continue plan of care.
[2018-12-24 08:00] VITALS: BP 110/72
[2018-12-24] MEDS: Eliquis 5mg tablet ORAL SCH ×2 (08:47→17:39)
[2018-12-24] MEDS: Lisinopril 20mg tab ORAL SCH (08:47)
[2018-12-24] MEDS: dilTIAZem HCl CD 120mg cap ORAL SCH (08:48)
--- NOTE | 2018-12-24 10:28 | NUR ---
SS alejo Fernandez at [facility] here to evaluate patient who explains they are not able to meet patient level of needs; recommending SNF placement due to making attempts to leave facility to use drugs/alcohol. [facility] (accepts Psych patients) explains they will evaluate patient (this SW faxed chart information to [facility]). Addendum: 12/24/18 at 1442 by DIPAK KAUR HEAD PAPER TESTER This Spoke with Clint Valenzuela (has memory care unit) who explains patient does not have enough income (cost of their facility is 1800 per month). Addendum: 12/24/18 at 1456 by DIPAK KAUR HEAD PAPER TESTER This SW spoke with George @ [facility] ([phone]) to [facility] (has income now). George explains they are unable to accept patient due to patients history of dementia, unable to provide close monitoring of patient. Addendum: 12/24/18 at 1457 by DIPAK COMER This SW contacted Marci Ahuja [facility] (pending eval); awaiting call return.
--- NOTE | 2018-12-24 11:52 | NUR ---
*-* INSURANCE *-* UPDATED CLINICALS HAVE BEEN FAXED TO: [facility] F:[phone]
[2018-12-24 12:00] VITALS: BP 117/62
--- NOTE | 2018-12-24 13:32 | NUR ---
SPEECH THERAPY CONSULTATION AND D/C NOTE: THIS 63 Y.O.M. IS REFERRED BY DR BELL FOR A SWALLOW EVALUATION. PATIENT SEEN BRIEFLY, REFUSING PO TRIALS WITH VICE PRESIDENT [employer]POR[employer]UN[employer] AND ALL MEALS AND HIGH CALORIE SUPPLEMENT TODAY. PER RN, NO OVERT S/S OF ASPIRATION WITH THIN LIQUIDS AND PILLS. INTAKE ON REGULAR TEXTURE DIET IS 25-75% W/O REPORTS OF OVERT ASPIRATION. HAS POSSIBLE SILENT ASP RISK SINCE HE HAS A H/O PARKINSONISM AND NEURO BUT LUNGS ARE CLEAR AND HE HAS BEEN DRINKING THIN LIQUIDS DAILY. PLAN: CONTINUE WITH CURRENT DIET AND THIN LIQUIDS AND CONSIDER SENDING FOODS OF PREFERENCE AND APPETITE STIMULANT. CONSIDER CALORIE COUNT. CONSIDER PSYCH EVALUATION PT HAS PSYCHOLOGICAL DIAGNOSES. PLEASE RECONSULT ONLY IF PT IS MORE RECEPTIVE TO PO INTAKE. D/W RN AND DR BELL.
--- NOTE | 2018-12-24 16:35 | Hematology/Onc Progress Note ---
Assessment/Plan Assessment/Plan # Anemia of chronic disease due to underlying chronic medical issues, multifactorial --> Anemia workup has been reviewed. Ferritin 83, TIBC 242 --> No evidence of hemolysis is noted, peripheral smear has been reviewed. --> Hgb goal >7. Transfuse prn. --> Epogen or iron at this time is not particularly indicated --> Medications have been reviewed --> hgb trend 14.1-->12.5--> 12.3-->11-->11.2-->10 --> still has been refusing labs AGAIN # Thrombocytopenia - potential causes multifactorial, evaluate liver and viral etiologies to begin, also could be related to underlying medications patient has received. --> Hep panel and HIV on PRIOR admission was negative --> US abd negative for cirrhosis and hsm --> Peripheral smear ordered to evaluate for blasts/schistocytes, none noted --> abx and other meds have been reviewed (one contributor could be depakote) --> ok for ppx if plt >50k w/ either heparin or lovenox --> Plt trend 118-->169k-->187k--> 102K->133k-->154k-->182k # FTT with decreased bmi on admission --> began on mirtazapine, to continue --> daily weight and monitor # Atelectasis, optimize pulmonary hygiene/mobilize as tolerated --> on cxr appears stable --> per pulm recs # Paroxysmal AFib, per cardiology recs--> on noac --> on eliquis (ok to continue) # Hypertension --> controlled, sbp goal <140 --> as per cards # Hypothyroidism --> Synthroid po to continue # Lactic acidosis --> has resolved # MACARENA which has resolved --> per renal care # Placement pending --> rehab, and pt/ot The timing of this note does not necessarily reflect the time of the patient was seen. Greatly appreciate consultation! Subjective Cardiovascular: Denies: no symptoms, chest pain, edema, irregular heart rate, lightheadedness, palpitations, syncope, other Respiratory: Denies: no symptoms, cough, shortness of breath, SOB with excertion, SOB at rest, sputum, wheezing, other Gastrointestinal/Abdominal: Denies: no symptoms, abdomen distended, abdominal pain, black stools, tarry stools, blood in stool, constipated, diarrhea, difficulty swallowing, nausea, poor appetite, poor fluid intake, rectal bleeding , vomiting, other Genitourinary: Denies: no symptoms, burning, discharge, frequency, flank pain, hematuria, incontinence, pain, urgency, other Neurologic/Psychiatric: Denies: no symptoms, anxiety, depressed, emotional problems, headache, numbness, paresthesia, pre-existing deficit, seizure, tingling, tremors, weakness, other Endocrine: Denies: no symptoms, excessive sweating, flushing, intolerance to cold, intolerance to heat, increased hunger, increased thirst, increased urine, unexplained weight gain, unexplained weight loss, other Allergies: Coded Allergies: RISPERIDONE (Unverified Allergy, Unknown, 07/04/18) ZIPRASIDONE (Verified Allergy, Unknown, 06/30/18) Subjective 11/06: Pt resting in bed. No acute distress. DC planning. 11/08: Pt asleep in bed. No acute events. 11/10: Pt stable, no signs of acute distress or SOB. Venous duplex negative. 11/11: Pt resting in bed. Afebrile, no sob. MRI brain pending. 11/12: Pt in bed, sleeping. No respiratory distress noted. DC planning. 11/13: Pt awake and alert, refused morning meds. No signs of SOB or pain observed. Plt count significantly improved overnight. 11/15: Pt denies pain, no complaints of dyspnea 11/17: Pt resting in bed no chest pain or dyspnea, no other complaints 11/18: unable to place picc given do not have consent 11/20: no acute events reported. 11/21: pt refused am labs as well as am meds. h/h stable from prior labs. 11/22: pt no acute distress. Afebrile, VS reviewed. 11/23: no events reported, no f/c noted 11/24: refusing to participate in exam, labs have been reviewed 11/25: eating ensure this am, discharge planning pending, dw CM 11/26: on noac, continues, no bleeding, hgb is 11.2 11/27: refusing labs this am, discussed with him importance 11/28: resting comfortably, no acute events, no bleeding reported, no night sweats 11/29: no events, no bleeding reported, no night sweats 11/30: no events, no bleeding, no chills, no major night sweats 12/01: getting rehab, pt/ot as needed, no f/c 12/02: walking around the priest with a FWW, says feeling better 12/03: given ativan overnight, feeling better 12/04: awake and alert, no acute events, placement pending 12/05: awake and alert, resting in bed, no acute events. 12/06: anxious and aggravated, vs stable, placement pending per case worker 12/07: no events to report, no f/c, no night sweats refusing po, will start on mirtazpine 12/08: no events noted, no f/c, no night sweats, no bleeding noted 12/09: no events, eating breakfast, cbc again reordered 12/10: no fevers or chills noted, no bleeding, no events, pending placement 12/11: walking around in hallway, no complaints, eating 12/12: labs reviewed, cbc still refusing in the am 12/13: asleep, still refusing labs, no fc 12/14: no events noted, no bleeding, no fc 12/15: not agitated, sinemet has been started per neuro 12/16: dc when public guardian raises money 12/17: dc planning as early as today, alert no complaints this am 12/18: no f/c, no night sweats, no bleeding noted 12/20: is on eliquis, sleeping, i woke him up, again refusing cbc 12/21: no bleeding, no chill, no night sweats, examined with rn, refusing to be seen 12/22: no events to report, no bleeding, no f/c 12/23: on eliquis, has been refusing POs, refusing exam too 12/24: sleeping, arousable, no major events Objective Objective Current Medications Medications (Trade) Dose Ordered Sig/Eduardo Route PRN Reason Start Time Stop Time Status Last Admin Dose Admin Acetaminophen (Tylenol) 650 mg Q4H PRN ORAL Mild Pain/Temp > 100.5 12/02/18 01:00 01/01/19 00:59 12/06/18 00:22 Apixaban (Eliquis) 5 mg BID ORAL 12/05/18 15:00 01/04/19 14:59 12/24/18 08:47 Diltiazem HCl (Cardizem CD) 120 mg DAILY ORAL 12/22/18 09:00 01/21/19 08:59 12/24/18 08:48 Lisinopril (Prinivil) 20 mg DAILY ORAL 12/22/18 09:30 01/21/19 09:29 12/24/18 08:47 Mirtazapine (Remeron) 7.5 mg BEDTIME ORAL 12/07/18 21:00 01/06/19 20:59 12/23/18 20:51 Last 24 Hour Vital Signs Date Time Temp Pulse Resp B/P (MAP) Pulse Ox O2 Delivery O2 Flow Rate FiO2 12/24/18 12:00 98.2 60 18 117/62 (80) 99 12/24/18 09:00 Room Air 12/24/18 08:48 66 110/72 12/24/18 08:47 110/72 12/24/18 08:00 97.2 66 19 110/72 (85) 97 12/23/18 21:00 Room Air 12/23/18 20:00 98.2 71 17 115/73 (87) 94 12/23/18 16:10 98.3 73 18 140/84 (102) 93 12/23/18 08:26 Room Air 12/23/18 08:00 162/89 12/23/18 08:00 96.0 91 17 134/70 (91) 96 12/23/18 07:59 112 162/89 12/23/18 00:00 97.7 82 17 103/62 (76) 96 12/22/18 21:00 Room Air 12/22/18 20:00 98.1 89 18 109/64 (79) 97 Intake and Output 12/23/18 12/24/18 19:00 07:00 Intake Total 300 ml 120 ml Balance 300 ml 120 ml Intake Oral 300 ml 120 ml # Voids 3 2 Height (Feet): 5 Height (Inches): 6.00 Weight (Pounds): 121 Objective PE: VITAL SIGNS: Have been reviewed. CHEST: Clear to auscultation. CV: Regular rate and rhythm. No murmurs or extra sounds. GASTROINTESTINAL: Soft, nontender, and nondistended. No organomegaly. EXTREMITIES: No edema. Moves all four extremities. NEUROLOGIC: Sensory intact to light touch. Reflexes are equal on both sides. Bennie Goss MD Dec 24, 2018 16:35
--- NOTE | 2018-12-24 17:22 | General Progress Note ---
Assessment/Plan Status: stable, unchanged Assessment/Plan: 63 y/o man with hx of paroxysmal atrial fibrillation, presented to the hospital with pre-syncope, found to have rapid atrial fibrillation now pending placement # Disposition - notes reviewed, still pending placement Difficult placement. Per major case detective no insurance available. Last notes reported [facility] as conservator. Need to continue efforts by CM and SW to place. SW spoke with Daily Sequeira [phone] who states Veronica spoke with SSI and patient' s SSI will be reinstated December 17. SW inquired about placement. Daily indicted she will contact various board and cares but could not guarantee she would locate placement due to patient currently not having income. ( PER DISCUSSION WITH RN, CURRENT CONSERVATOR MANAGES THE PATIENT'S MONEY) SW updated CM. Will continue to follow up. # Hypotension- resolved - Monitor BP #Paroxysmal Atrial Fibrillation #Atrial fibrillation with RVR, controlled - Cont beta zack and Diltiazem for rate control - holding parameters. - Cont NOAC.. - echo did not show any remarkable changes - Apprec cardiology recs #Anemia due to chronic illness #Thrombocytopenia - Hgb and platelet count appeared to be at baseline, seen by Hematology, no new changes recommended. Labs stable. #unstable gait -continue PT - PATIENT WILL NEED TO BE WITHOUT FWW in order to return to his [facility]. Recommend DC to assisted living facility at DC per PT final report. Otherwise, will need new placement. cable installation manager follow up is needed. SW note for conservator reviewed. I DO NOT UNDERSTAND WHY THE CONSERVATOR REFUSED TO PLACE THE PATIENT BACK TO HIS DETENTION - per discussion with RN. NEED TO HAVE SW follow up on this DAVID. ? Formal complain for conservator and request new conservator vs other legal action. #Behavorial disorder -psych meds restarted -psychiatry consulted Medically stable for discharge when placement is approved. Subjective Date patient seen: Dec 24, 2018 Time patient seen: 12:00 ROS Limited/Unobtainable: No Allergies: Coded Allergies: RISPERIDONE (Unverified Allergy, Unknown, 07/04/18) ZIPRASIDONE (Verified Allergy, Unknown, 06/30/18) All Systems: reviewed and negative except above Subjective unreliable historian CORONA no seizures Objective Last 24 Hour Vital Signs Date Time Temp Pulse Resp B/P (MAP) Pulse Ox O2 Delivery O2 Flow Rate FiO2 12/24/18 12:00 98.2 60 18 117/62 (80) 99 12/24/18 09:00 Room Air 12/24/18 08:48 66 110/72 12/24/18 08:47 110/72 12/24/18 08:00 97.2 66 19 110/72 (85) 97 12/23/18 21:00 Room Air 12/23/18 20:00 98.2 71 17 115/73 (87) 94 Intake and Output 12/23/18 12/24/18 19:00 07:00 Intake Total 300 ml 120 ml Balance 300 ml 120 ml Intake Oral 300 ml 120 ml # Voids 3 2 Height (Feet): 5 Height (Inches): 6.00 Weight (Pounds): 121 Objective GEN: WWN, NAD, Alert CV: RRR, no M, R, G, no jvd RESP: CTAB, no w/r/c ABD: normal bowel sounds, soft, non tender EXT: normal muscle tone, no tenderness NEURO: grossly normal, no tremors, a x o x 3 Oriana Jalloh DO Dec 24, 2018 17:22
--- NOTE | 2018-12-24 19:14 | NUR ---
NURSE NOTES: Received report from ELLA Aldrich. Pt is sleeping at this time, resp even, no issues noted. Call light within reach.
--- NOTE | 2018-12-24 19:20 | NUR ---
HAND-OFF: Report given to Nora/ELLA, Patient is asleep, No acute distress/SOB noted, in stable condition. Endorsed plan of care.
[2018-12-24 20:00] VITALS: BP 116/80
[2018-12-25 03:49] VITALS: BP 123/67
--- NOTE | 2018-12-25 07:25 | NUR ---
HAND-OFF: Report given to Bree Gloria RN.
--- NOTE | 2018-12-25 07:35 | NUR ---
NURSE NOTES: Received report from ELLA Melendez. Rounding done with outgoing nurse. Pt asleep. Bed in lowest position, call light within reach. Will continue to monitor.
[2018-12-25 10:00] VITALS: BP 105/72
[2018-12-25] MEDS: Eliquis 5mg tablet ORAL SCH ×2 (10:39→17:55)
[2018-12-25] MEDS: dilTIAZem HCl CD 120mg cap ORAL SCH (10:39)
[2018-12-25] MEDS: Lisinopril 20mg tab ORAL SCH (10:39)
--- NOTE | 2018-12-25 11:51 | NUR ---
Discharge Planning This SW contacted the following facilities to evaluate: 1) [facility] ([facility]) [phone] (fax) ph [phone] 2) [facility] ([facility]): ph [phone] (income too low) 3) [facility]: [phone] fax [phone] 4) [facility] [place]: [phone] fax [phone] 5) [facility] (licensed facility): Brian ([phone]) fax [phone] Addendum: 12/25/18 at 1317 by DIPAK COMER Irvingterri Kay (Rylie) explains patient does not have Medi maría (verified this).
[2018-12-25 12:00] VITALS: BP 106/74
--- NOTE | 2018-12-25 14:43 | Hematology/Onc Progress Note ---
Assessment/Plan Assessment/Plan # Anemia of chronic disease due to underlying chronic medical issues, multifactorial --> Anemia workup has been reviewed. Ferritin 83, TIBC 242 --> No evidence of hemolysis is noted, peripheral smear has been reviewed. --> Hgb goal >7. Transfuse prn. --> Epogen or iron at this time is not particularly indicated --> Medications have been reviewed --> hgb trend 14.1-->12.5--> 12.3-->11-->11.2-->10 --> still has been refusing labs AGAIN # Thrombocytopenia - potential causes multifactorial, evaluate liver and viral etiologies to begin, also could be related to underlying medications patient has received. --> Hep panel and HIV on PRIOR admission was negative --> US abd negative for cirrhosis and hsm --> Peripheral smear ordered to evaluate for blasts/schistocytes, none noted --> abx and other meds have been reviewed (one contributor could be depakote) --> ok for ppx if plt >50k w/ either heparin or lovenox --> Plt trend 118-->169k-->187k--> 102K->133k-->154k-->182k # FTT with decreased bmi on admission --> began on mirtazapine, to continue at this time --> daily weight and monitor # Atelectasis, optimize pulmonary hygiene/mobilize as tolerated --> on cxr appears stable --> per pulm recs # Paroxysmal AFib, per cardiology recs--> on noac --> on eliquis (ok to continue) # Hypertension --> controlled, sbp goal <140 --> as per cards # Hypothyroidism --> Synthroid po to continue # Lactic acidosis --> has resolved # MACARENA which has resolved --> per renal care # Placement pending --> rehab, and pt/ot The timing of this note does not necessarily reflect the time of the patient was seen. Greatly appreciate consultation! Subjective Cardiovascular: Denies: no symptoms, chest pain, edema, irregular heart rate, lightheadedness, palpitations, syncope, other Respiratory: Denies: no symptoms, cough, shortness of breath, SOB with excertion, SOB at rest, sputum, wheezing, other Gastrointestinal/Abdominal: Denies: no symptoms, abdomen distended, abdominal pain, black stools, tarry stools, blood in stool, constipated, diarrhea, difficulty swallowing, nausea, poor appetite, poor fluid intake, rectal bleeding , vomiting, other Genitourinary: Denies: no symptoms, burning, discharge, frequency, flank pain, hematuria, incontinence, pain, urgency, other Neurologic/Psychiatric: Denies: no symptoms, anxiety, depressed, emotional problems, headache, numbness, paresthesia, pre-existing deficit, seizure, tingling, tremors, weakness, other Endocrine: Denies: no symptoms, excessive sweating, flushing, intolerance to cold, intolerance to heat, increased hunger, increased thirst, increased urine, unexplained weight gain, unexplained weight loss, other Hematologic/Lymphatic: Denies: no symptoms, anemia, easy bleeding, easy bruising, adenopathy, other Allergies: Coded Allergies: RISPERIDONE (Unverified Allergy, Unknown, 07/04/18) ZIPRASIDONE (Verified Allergy, Unknown, 06/30/18) Subjective 11/06: Pt resting in bed. No acute distress. DC planning. 11/08: Pt asleep in bed. No acute events. 11/10: Pt stable, no signs of acute distress or SOB. Venous duplex negative. 11/11: Pt resting in bed. Afebrile, no sob. MRI brain pending. 11/12: Pt in bed, sleeping. No respiratory distress noted. DC planning. 11/13: Pt awake and alert, refused morning meds. No signs of SOB or pain observed. Plt count significantly improved overnight. 11/15: Pt denies pain, no complaints of dyspnea 11/17: Pt resting in bed no chest pain or dyspnea, no other complaints 11/18: unable to place picc given do not have consent 11/20: no acute events reported. 11/21: pt refused am labs as well as am meds. h/h stable from prior labs. 11/22: pt no acute distress. Afebrile, VS reviewed. 11/23: no events reported, no f/c noted 11/24: refusing to participate in exam, labs have been reviewed 11/25: eating ensure this am, discharge planning pending, dw CM 11/26: on noac, continues, no bleeding, hgb is 11.2 11/27: refusing labs this am, discussed with him importance 11/28: resting comfortably, no acute events, no bleeding reported, no night sweats 11/29: no events, no bleeding reported, no night sweats 11/30: no events, no bleeding, no chills, no major night sweats 12/01: getting rehab, pt/ot as needed, no f/c 12/02: walking around the priest with a FWW, says feeling better 12/03: given ativan overnight, feeling better 12/04: awake and alert, no acute events, placement pending 12/05: awake and alert, resting in bed, no acute events. 12/06: anxious and aggravated, vs stable, placement pending per behavioral health case manager 12/07: no events to report, no f/c, no night sweats refusing po, will start on mirtazpine 12/08: no events noted, no f/c, no night sweats, no bleeding noted 12/09: no events, eating breakfast, cbc again reordered 12/10: no fevers or chills noted, no bleeding, no events, pending placement 12/11: walking around in hallway, no complaints, eating 12/12: labs reviewed, cbc still refusing in the am 12/13: asleep, still refusing labs, no fc 12/14: no events noted, no bleeding, no fc 12/15: not agitated, sinemet has been started per neuro 12/16: dc when public guardian raises money 12/17: dc planning as early as today, alert no complaints this am 12/18: no f/c, no night sweats, no bleeding noted 12/20: is on eliquis, sleeping, i woke him up, again refusing cbc 12/21: no bleeding, no chill, no night sweats, examined with rn, refusing to be seen 12/22: no events to report, no bleeding, no f/c 12/23: on eliquis, has been refusing POs, refusing exam too 12/24: sleeping, arousable, no major events 12/25: no events no bleeding, no chills noted, refusing again exam, and labs Objective Objective Current Medications Medications (Trade) Dose Ordered Sig/Eduardo Route PRN Reason Start Time Stop Time Status Last Admin Dose Admin Acetaminophen (Tylenol) 650 mg Q4H PRN ORAL Mild Pain/Temp > 100.5 12/02/18 01:00 01/01/19 00:59 12/06/18 00:22 Apixaban (Eliquis) 5 mg BID ORAL 12/05/18 15:00 01/04/19 14:59 12/25/18 10:39 Diltiazem HCl (Cardizem CD) 120 mg DAILY ORAL 12/22/18 09:00 01/21/19 08:59 12/25/18 10:39 Lisinopril (Prinivil) 20 mg DAILY ORAL 12/22/18 09:30 01/21/19 09:29 12/25/18 10:39 Mirtazapine (Remeron) 7.5 mg BEDTIME ORAL 12/07/18 21:00 01/06/19 20:59 12/24/18 20:46 Last 24 Hour Vital Signs Date Time Temp Pulse Resp B/P (MAP) Pulse Ox O2 Delivery O2 Flow Rate FiO2 12/25/18 12:00 98.1 68 20 106/74 (85) 97 12/25/18 10:39 105/72 12/25/18 10:39 72 105/72 12/25/18 10:00 97.3 72 21 105/72 (83) 95 12/25/18 09:00 Room Air 12/25/18 03:49 98.0 74 16 123/67 (85) 98 12/24/18 21:00 Room Air 12/24/18 20:00 98.5 86 16 116/80 (92) 95 12/24/18 12:00 98.2 60 18 117/62 (80) 99 12/24/18 09:00 Room Air 12/24/18 08:48 66 110/72 12/24/18 08:47 110/72 12/24/18 08:00 97.2 66 19 110/72 (85) 97 12/23/18 21:00 Room Air 12/23/18 20:00 98.2 71 17 115/73 (87) 94 12/23/18 16:10 98.3 73 18 140/84 (102) 93 Intake and Output 12/24/18 12/25/18 19:00 07:00 Intake Total 120 ml Balance 120 ml Intake Oral 120 ml # Voids 1 2 Height (Feet): 5 Height (Inches): 6.00 Weight (Pounds): 121 Objective PE: VITAL SIGNS: Have been reviewed. CHEST: Clear to auscultation. CV: Regular rate and rhythm. No murmurs or extra sounds. GASTROINTESTINAL: Soft, nontender, and nondistended. No organomegaly. EXTREMITIES: No edema. Moves all four extremities. NEUROLOGIC: Sensory intact to light touch. Reflexes are equal on both sides. Bennie Goss MD Dec 25, 2018 14:43
--- NOTE | 2018-12-25 14:56 | General Progress Note ---
Assessment/Plan Status: stable, unchanged Assessment/Plan: 63 y/o man with hx of paroxysmal atrial fibrillation, presented to the hospital with pre-syncope, found to have rapid atrial fibrillation now pending placement # Disposition - notes reviewed, still pending placement Difficult placement. Per classification case manager no insurance available. [facility] reported [facility]. Need to continue efforts by CM and SW to place. SW spoke with Daily Sequeira [phone] who states Veronica spoke with SSI and patient' s SSI will be reinstated December 17. SW inquired about placement. Daily indicted she will contact various board and cares but could not guarantee she would locate placement due to patient currently not having income. ( PER DISCUSSION WITH RN, CURRENT CONSERVATOR MANAGES THE PATIENT'S MONEY) SW updated CM. Will continue to follow up. # Hypotension- resolved - Monitor BP #Paroxysmal Atrial Fibrillation #Atrial fibrillation with RVR, controlled - Cont beta zack and Diltiazem for rate control - holding parameters. - Cont NOAC.. - echo did not show any remarkable changes - Apprec cardiology recs #Anemia due to chronic illness #Thrombocytopenia - Hgb and platelet count appeared to be at baseline, seen by Hematology, no new changes recommended. Labs stable. #unstable gait -continue PT - PATIENT WILL NEED TO BE WITHOUT FWW in order to return to his [facility]. Recommend DC to assisted living facility at DC per PT final report. Otherwise, will need new placement. sales performance manager follow up is needed. SW note for conservator reviewed. I DO NOT UNDERSTAND WHY THE CONSERVATOR REFUSED TO PLACE THE PATIENT BACK TO HIS SENIOR CARE - per discussion with RN. NEED TO HAVE SW follow up on this DAVID. ? Formal complain for conservator and request new conservator vs other legal action. #Behavorial disorder -psych meds restarted -psychiatry consulted Medically stable for discharge when placement is approved. Subjective Date patient seen: Dec 25, 2018 Time patient seen: 12:00 Allergies: Coded Allergies: RISPERIDONE (Unverified Allergy, Unknown, 07/04/18) ZIPRASIDONE (Verified Allergy, Unknown, 06/30/18) Subjective unreliable historian CORONA no seizures Objective Last 24 Hour Vital Signs Date Time Temp Pulse Resp B/P (MAP) Pulse Ox O2 Delivery O2 Flow Rate FiO2 12/25/18 12:00 98.1 68 20 106/74 (85) 97 12/25/18 10:39 105/72 8/9/19 10:39 72 105/72 12/25/18 10:00 97.3 72 21 105/72 (83) 95 12/25/18 09:00 Room Air 12/25/18 03:49 98.0 74 16 123/67 (85) 98 12/24/18 21:00 Room Air 12/24/18 20:00 98.5 86 16 116/80 (92) 95 Intake and Output 12/24/18 12/25/18 19:00 07:00 Intake Total 120 ml Balance 120 ml Intake Oral 120 ml # Voids 1 2 Height (Feet): 5 Height (Inches): 6.00 Weight (Pounds): 121 Objective GEN: WWN, NAD, Alert CV: RRR, no M, R, G, no jvd RESP: CTAB, no w/r/c ABD: normal bowel sounds, soft, non tender EXT: normal muscle tone, no tenderness NEURO: grossly normal, no tremors, a x o x 3 Oriana Jalloh DO Dec 25, 2018 14:56
--- NOTE | 2018-12-25 15:10 | NUR ---
*-* DISCHARGE PLANNING *-* PATIENT HAS BEEN REFERRED TO: [facility] P:[phone] F: [phone] Addendum: 12/31/18 at 1258 by PALLAVI ALVES CM SPOKE TO [facility] THEY ARE UNABLE TO ACCEPT PATIENT
--- NOTE | 2018-12-25 15:39 | NUR ---
BUILDING SURVEYORARTIFICIAL BREEDING DISTRIBUTOR SI: GI FREDOED T. 97.3 HR 72 RR 21 B/P 105/72 RA 95% IS: ZESTRIL PO ELIQUISE PO PLACEMENT PENDING MED/SURG STATUS
[2018-12-25 16:00] VITALS: BP 121/72
--- NOTE | 2018-12-25 19:30 | NUR ---
HAND-OFF: Report given to ELLA Ramon. Pt is stable condition.
[2018-12-25 20:00] VITALS: BP 108/67
[2018-12-26] VITALS: BP 104/72
[2018-12-26 04:00] VITALS: BP 111/69
--- NOTE | 2018-12-26 07:30 | NUR ---
NURSE NOTES: Patient is sitting up at edge of the bed. Stable. Denies pain or SOB. Patient encouraged to use call light for assistance, verbalized understanding. All safety measures provided. WIll continue to monitor.
[2018-12-26 08:00] VITALS: BP 140/83
--- NOTE | 2018-12-26 08:14 | NUR ---
RD ASSESSMENT & RECOMMENDATIONS SEE CARE ACTIVITY FOR COMPLETE ASSESSMENT DAILY ESTIMATED NEEDS: Needs based on cardiac/ 56kg 25-30 kcals/kg 2999-1919 total kcals 1-1.5 g protein/kg 56-84 g total protein 25-30 mL/kg 0288-6601 total fluid mLs NUTRITION DIAGNOSIS: Increased kcal/prot intake needs R/T wt loss as evidenced by pt w/ possible significant wt loss of 23lbs/17.5% in 4 months, poor PO intake upon adm, now w/ possible wt gain since adm. CURRENT DIET:REGULAR + Ensure Enlive TID w/ meals PO DIET RECOMMENDATIONS: Maintain liberalized REGULAR diet + continue Ensure Enlive TID w/ meals ADDITIONAL RECOMMENDATIONS: * Calibrated bedscale wt on 12/26=56.4kg (124lbs) -> rec weekly wt monitoring given h/o possible wt loss, poor PO * Updated CBC and BMP as able - refusing blood draws * Vit D 1000 IU daily (low Vit D25=29) * Consider additional appetite stimulant (on Remeron at this time) -> refusing meals again, also w/ decreased Ensure intake * Consider psych re-eval: last seen 12/18, Zyprexa last given 12/11, appears to be less interactive at this time, decreased appetite
--- NOTE | 2018-12-26 08:14 | NUR ---
HAND-OFF: Report given to CHRISTIANO JARAMILLO.
[2018-12-26] MEDS: dilTIAZem HCl CD 120mg cap ORAL SCH (08:56)
[2018-12-26] MEDS: Lisinopril 20mg tab ORAL SCH (08:56)
[2018-12-26] MEDS: Eliquis 5mg tablet ORAL SCH ×2 (08:56→17:42)
[2018-12-26 12:00] VITALS: BP 124/84
[2018-12-26 16:00] VITALS: BP 127/81
--- NOTE | 2018-12-26 19:16 | NUR ---
NURSE NOTES:Patient received Bree ABBOTT R.N.. Patient A/A/OX3 with episode of confusion ..Patient denies any pain at this time .No s/s of distress noted. Call light within reach . Bed in low position at all times . will continue to monitor.
--- NOTE | 2018-12-26 19:16 | NUR ---
HAND-OFF: Report given to Cathi SNYDER. Patient is stable.
[2018-12-26 20:00] VITALS: BP 118/84
--- NOTE | 2018-12-26 22:57 | General Progress Note ---
Assessment/Plan Status: stable, unchanged Assessment/Plan: 63 y/o man with hx of paroxysmal atrial fibrillation, presented to the hospital with pre-syncope, found to have rapid atrial fibrillation now pending placement # Disposition - notes reviewed, still pending placement Difficult placement. Per correctional casework specialist no insurance available. [facility] reported [facility]. Need to continue efforts by CM and SW to place. SW spoke with Daily Sequeira [phone] who states Veronica spoke with SSI and patient' s SSI will be reinstated December 17. SW inquired about placement. Daily indicted she will contact various board and cares but could not guarantee she would locate placement due to patient currently not having income. ( PER DISCUSSION WITH RN, CURRENT CONSERVATOR MANAGES THE PATIENT'S MONEY) SW updated CM. Will continue to follow up. # Hypotension- resolved - Monitor BP #Paroxysmal Atrial Fibrillation #Atrial fibrillation with RVR, controlled - Cont beta zack and Diltiazem for rate control - holding parameters. - Cont NOAC.. - echo did not show any remarkable changes - Apprec cardiology recs #Anemia due to chronic illness #Thrombocytopenia - Hgb and platelet count appeared to be at baseline, seen by Hematology, no new changes recommended. Labs stable. #unstable gait -continue PT - PATIENT WILL NEED TO BE WITHOUT FWW in order to return to his [facility]. Recommend DC to assisted living facility at [place] per PT final report. Otherwise, will need new placement. phlebotomy manager follow up is needed. SW note for conservator reviewed. I DO NOT UNDERSTAND WHY THE CONSERVATOR REFUSED TO PLACE THE PATIENT BACK TO HIS INTERMEDIATE - per discussion with RN. NEED TO HAVE SW follow up on this DAVID. ? Formal complain for conservator and request new conservator vs other legal action. #Behavorial disorder -psych meds restarted -psychiatry consulted Medically stable for discharge when placement is approved. Subjective Date patient seen: Dec 26, 2018 Time patient seen: 11:30 ROS Limited/Unobtainable: No Allergies: Coded Allergies: RISPERIDONE (Unverified Allergy, Unknown, 07/04/18) ZIPRASIDONE (Verified Allergy, Unknown, 06/30/18) Subjective doing well sitting up in chair no complaints Objective Last 24 Hour Vital Signs Date Time Temp Pulse Resp B/P (MAP) Pulse Ox O2 Delivery O2 Flow Rate FiO2 12/26/18 16:00 98.6 71 17 127/81 (96) 97 8/10/19 12:00 98.1 70 17 124/84 (97) 99 12/26/18 09:00 Room Air 12/26/18 08:56 140/83 12/26/18 08:56 72 140/83 12/26/18 08:00 98.3 72 18 140/83 (102) 97 12/26/18 04:00 97.2 68 18 111/69 (83) 95 12/26/18 00:00 97.0 72 18 104/72 (83) 97 Intake and Output 12/25/18 12/26/18 19:00 07:00 Intake Total 240 ml Balance 240 ml Intake Oral 240 ml # Voids 1 3 Height (Feet): 5 Height (Inches): 6.00 Weight (Pounds): 121 Objective GEN: WWN, NAD, Alert CV: RRR, no M, R, G, no jvd RESP: CTAB, no w/r/c ABD: normal bowel sounds, soft, non tender EXT: normal muscle tone, no tenderness NEURO: grossly normal, no tremors, a x o x 3 Oraina Jalloh DO Dec 26, 2018 22:57
[2018-12-27] VITALS (7 sets, daily range): BP systolic 109–120; BP diastolic 63–77
--- NOTE | 2018-12-27 08:15 | NUR ---
NURSE NOTES: RECEIVED PATIENT A/A/OX3, ABLE TO FOLLOW COMMANDS AND VERBALIZE NEEDS. REFUSED TO EAT BREAKFAST. EXPLAINED THE IMPORTANCE AND INDICATIONS OF HIS HOSP STAY. NO ACUTE RESP DISTRESS NOTED. NO C/O PAIN/DISCOMFORT NOTED. KEPT BED IN THE LOWEST POSITION. SIDERAILS ARE UP X3. CALL LIGHT IS WITHIN REACH. BED IS IN THE ALARM MODE AND KEPT LOCKED. WILL CONT TO MONITOR.
[2018-12-27] MEDS: dilTIAZem HCl CD 120mg cap ORAL SCH (09:00)
[2018-12-27] MEDS: Lisinopril 20mg tab ORAL SCH (09:00)
[2018-12-27] MEDS: Eliquis 5mg tablet ORAL SCH ×2 (09:05→17:03)
--- NOTE | 2018-12-27 11:44 | General Progress Note ---
Assessment/Plan Status: stable, unchanged Assessment/Plan: 63 y/o man with hx of paroxysmal atrial fibrillation, presented to the hospital with pre-syncope, found to have rapid atrial fibrillation now pending placement # Disposition - notes reviewed, still pending placement Difficult placement. Per case managers no insurance available. Last notes reported [facility]. Need to continue efforts by CM and SW to place. SW spoke with Daily Sequeira [phone] who states Veronica spoke with SSI and patient' s SSI will be reinstated December 17. WENDY inquired about placement. Daily indicted she will contact various board and cares but could not guarantee she would locate placement due to patient currently not having income. ( PER DISCUSSION WITH RN, CURRENT CONSERVATOR MANAGES THE PATIENT'S MONEY) SW updated CM. Will continue to follow up. # Hypotension- resolved - Monitor BP #Paroxysmal Atrial Fibrillation #Atrial fibrillation with RVR, controlled - Cont beta zack and Diltiazem for rate control - holding parameters. - Cont NOAC.. - echo did not show any remarkable changes - Apprec cardiology recs #Anemia due to chronic illness #Thrombocytopenia - Hgb and platelet count appeared to be at baseline, seen by Hematology, no new changes recommended. Labs stable. #unstable gait -continue PT - PATIENT WILL NEED TO BE WITHOUT FWW in order to return to his [facility]. Recommend DC to assisted living facility at [place] per PT final report. Otherwise, will need new placement. manager inside follow up is needed. SW note for conservator reviewed. I DO NOT UNDERSTAND WHY THE CONSERVATOR REFUSED TO PLACE THE PATIENT BACK TO HIS [facility] - per discussion with RN. NEED TO HAVE SW follow up on this DAVID. ? Formal complain for conservator and request new conservator vs other legal action. #Behavorial disorder -psych meds restarted -psychiatry consulted Medically stable for discharge when placement is approved. Subjective Date patient seen: Dec 27, 2018 Time patient seen: 11:45 Allergies: Coded Allergies: RISPERIDONE (Unverified Allergy, Unknown, 07/04/18) ZIPRASIDONE (Verified Allergy, Unknown, 06/30/18) Subjective no complaints holding parameters placed on bp meds patient states he is well and denies KENDALL or Dizziness Objective Last 24 Hour Vital Signs Date Time Temp Pulse Resp B/P (MAP) Pulse Ox O2 Delivery O2 Flow Rate FiO2 12/27/18 09:00 118/63 12/27/18 09:00 83 118/63 12/27/18 08:00 97.9 83 18 118/63 (81) 100 12/27/18 04:00 97.2 77 18 117/74 (88) 97 12/27/18 00:00 97.0 69 18 116/77 (90) 98 12/26/18 21:00 Room Air 12/26/18 20:00 97.2 71 18 118/84 (95) 97 12/26/18 16:00 98.6 71 17 127/81 (96) 97 12/26/18 12:00 98.1 70 17 124/84 (97) 99 Intake and Output 12/26/18 12/27/18 19:00 07:00 Intake Total 1200 ml 760 ml Output Total 950 ml Balance 1200 ml -190 ml Intake Oral 1200 ml 760 ml Output Urine Total 950 ml # Voids 3 3 Height (Feet): 5 Height (Inches): 6.00 Weight (Pounds): 121 Objective GEN: WWN, NAD, Alert CV: RRR, no M, R, G, no jvd RESP: CTAB, no w/r/c ABD: normal bowel sounds, soft, non tender EXT: normal muscle tone, no tenderness NEURO: grossly normal, no tremors, a x o x 3 Oriana Jalloh DO Dec 27, 2018 11:44
--- NOTE | 2018-12-27 16:03 | Hematology/Onc Progress Note ---
Assessment/Plan Assessment/Plan # Anemia of chronic disease due to underlying chronic medical issues, multifactorial --> Anemia workup has been reviewed. Ferritin 83, TIBC 242 --> No evidence of hemolysis is noted, peripheral smear has been reviewed. --> Hgb goal >7. Transfuse prn. --> Epogen or iron at this time is not particularly indicated --> Medications have been reviewed --> hgb trend 14.1-->12.5--> 12.3-->11-->11.2-->10 --> still has been refusing labs AGAINand AGAIN # Thrombocytopenia - potential causes multifactorial, evaluate liver and viral etiologies to begin, also could be related to underlying medications patient has received. --> Hep panel and HIV on PRIOR admission was negative --> US abd negative for cirrhosis and hsm --> Peripheral smear ordered to evaluate for blasts/schistocytes, none noted --> abx and other meds have been reviewed (one contributor could be depakote) --> ok for ppx if plt >50k w/ either heparin or lovenox --> Plt trend 118-->169k-->187k--> 102K->133k-->154k-->182k # FTT with decreased bmi on admission --> began on mirtazapine, to continue at this time --> daily weight and monitor # Atelectasis, optimize pulmonary hygiene/mobilize as tolerated --> on cxr appears stable --> per pulm recs # Paroxysmal AFib, per cardiology recs--> on noac --> on eliquis (ok to continue) # Hypertension --> controlled, sbp goal <140 --> as per cards # Hypothyroidism --> Synthroid po to continue # Lactic acidosis --> has resolved # MACARENA which has resolved --> per renal care # Placement pending --> rehab, and pt/ot The timing of this note does not necessarily reflect the time of the patient was seen. Greatly appreciate consultation! Subjective Constitutional: Denies: no symptoms, chills, fever, malaise, weakness, other Respiratory: Denies: no symptoms, cough, shortness of breath, SOB with excertion, SOB at rest, sputum, wheezing, other Genitourinary: Denies: no symptoms, burning, discharge, frequency, flank pain, hematuria, incontinence, pain, urgency, other Neurologic/Psychiatric: Denies: no symptoms, anxiety, depressed, emotional problems, headache, numbness, paresthesia, pre-existing deficit, seizure, tingling, tremors, weakness, other Endocrine: Denies: no symptoms, excessive sweating, flushing, intolerance to cold, intolerance to heat, increased hunger, increased thirst, increased urine, unexplained weight gain, unexplained weight loss, other Allergies: Coded Allergies: RISPERIDONE (Unverified Allergy, Unknown, 07/04/18) ZIPRASIDONE (Verified Allergy, Unknown, 06/30/18) Subjective 11/06: Pt resting in bed. No acute distress. DC planning. 11/08: Pt asleep in bed. No acute events. 11/10: Pt stable, no signs of acute distress or SOB. Venous duplex negative. 11/11: Pt resting in bed. Afebrile, no sob. MRI brain pending. 11/12: Pt in bed, sleeping. No respiratory distress noted. DC planning. 11/13: Pt awake and alert, refused morning meds. No signs of SOB or pain observed. Plt count significantly improved overnight. 11/15: Pt denies pain, no complaints of dyspnea 11/17: Pt resting in bed no chest pain or dyspnea, no other complaints 11/18: unable to place picc given do not have consent 11/20: no acute events reported. 11/21: pt refused am labs as well as am meds. h/h stable from prior labs. 11/22: pt no acute distress. Afebrile, VS reviewed. 11/23: no events reported, no f/c noted 11/24: refusing to participate in exam, labs have been reviewed 11/25: eating ensure this am, discharge planning pending, dw CM 11/26: on noac, continues, no bleeding, hgb is 11.2 11/27: refusing labs this am, discussed with him importance 11/28: resting comfortably, no acute events, no bleeding reported, no night sweats 11/29: no events, no bleeding reported, no night sweats 11/30: no events, no bleeding, no chills, no major night sweats 12/01: getting rehab, pt/ot as needed, no f/c 12/02: walking around the priest with a FWW, says feeling better 12/03: given ativan overnight, feeling better 12/04: awake and alert, no acute events, placement pending 12/05: awake and alert, resting in bed, no acute events. 12/06: anxious and aggravated, vs stable, placement pending per case management social worker 12/07: no events to report, no f/c, no night sweats refusing po, will start on mirtazpine 12/08: no events noted, no f/c, no night sweats, no bleeding noted 12/09: no events, eating breakfast, cbc again reordered 12/10: no fevers or chills noted, no bleeding, no events, pending placement 12/11: walking around in hallway, no complaints, eating 12/12: labs reviewed, cbc still refusing in the am 12/13: asleep, still refusing labs, no fc 12/14: no events noted, no bleeding, no fc 12/15: not agitated, sinemet has been started per neuro 12/16: dc when public guardian raises money 12/17: dc planning as early as today, alert no complaints this am 12/18: no f/c, no night sweats, no bleeding noted 12/20: is on eliquis, sleeping, i woke him up, again refusing cbc 12/21: no bleeding, no chill, no night sweats, examined with rn, refusing to be seen 12/22: no events to report, no bleeding, no f/c 12/23: on eliquis, has been refusing POs, refusing exam too 12/24: sleeping, arousable, no major events 12/25: no events no bleeding, no chills noted, refusing again exam, and labs 12/27: pending placement, no new recs, no f/c noted, no bleeding Objective Objective Current Medications Medications (Trade) Dose Ordered Sig/Eduardo Route PRN Reason Start Time Stop Time Status Last Admin Dose Admin Acetaminophen (Tylenol) 650 mg Q4H PRN ORAL Mild Pain/Temp > 100.5 12/02/18 01:00 01/01/19 00:59 12/06/18 00:22 Apixaban (Eliquis) 5 mg BID ORAL 12/05/18 15:00 01/04/19 14:59 12/27/18 09:05 Diltiazem HCl (Cardizem CD) 120 mg DAILY ORAL 12/28/18 09:00 01/27/19 08:59 Mirtazapine (Remeron) 7.5 mg BEDTIME ORAL 12/07/18 21:00 01/06/19 20:59 12/26/18 20:27 Last 24 Hour Vital Signs Date Time Temp Pulse Resp B/P (MAP) Pulse Ox O2 Delivery O2 Flow Rate FiO2 12/27/18 12:04 97.9 91 17 109/74 (86) 95 12/27/18 09:00 118/63 12/27/18 09:00 83 118/63 12/27/18 08:00 97.9 83 18 118/63 (81) 100 12/27/18 04:00 97.2 77 18 117/74 (88) 97 12/27/18 00:00 97.0 69 18 116/77 (90) 98 12/26/18 21:00 Room Air 12/26/18 20:00 97.2 71 18 118/84 (95) 97 12/26/18 16:00 98.6 71 17 127/81 (96) 97 12/26/18 12:00 98.1 70 17 124/84 (97) 99 12/26/18 09:00 Room Air 12/26/18 08:56 140/83 12/26/18 08:56 72 140/83 12/26/18 08:00 98.3 72 18 140/83 (102) 97 12/26/18 04:00 97.2 68 18 111/69 (83) 95 12/26/18 00:00 97.0 72 18 104/72 (83) 97 12/25/18 21:00 Room Air 12/25/18 20:00 97.0 77 18 108/67 (81) 97 Intake and Output 12/26/18 12/27/18 18:59 06:59 Intake Total 1200 ml 760 ml Output Total 950 ml Balance 1200 ml -190 ml Intake Oral 1200 ml 760 ml Output Urine Total 950 ml # Voids 3 3 Height (Feet): 5 Height (Inches): 6.00 Weight (Pounds): 121 Objective PE: VITAL SIGNS: Have been reviewed. CHEST: Clear to auscultation. CV: Regular rate and rhythm. No murmurs or extra sounds. GASTROINTESTINAL: Soft, nontender, and nondistended. No organomegaly. EXTREMITIES: No edema. Moves all four extremities. NEUROLOGIC: Sensory intact to light touch. Reflexes are equal on both sides. Bennie Goss MD Dec 27, 2018 16:03
--- NOTE | 2018-12-27 18:55 | NUR ---
NURSE NOTES:Patient received from Shantell Sutton. Patient resting in bed . Patient denies any pain at this time . no s/s of distress noted . Patient no IV Access MD aware . call light within reach . bed in low position at all times . will continue to monitor
--- NOTE | 2018-12-27 18:55 | NUR ---
HAND-OFF: Report given to Cathi.
[2018-12-28] VITALS (7 sets, daily range): BP systolic 118–151; BP diastolic 74–97
--- NOTE | 2018-12-28 05:12 | NUR ---
NURSE NOTES:Patient take a bath or shower this morning . Addendum: 12/28/18 at 0634 by ADELA GARCIA LVN Per patient request to garbage his clothes . Hospital gown and pant given to patient after taking a shower.
--- NOTE | 2018-12-28 07:23 | NUR ---
HAND-OFF: Report given to Flaquita Coles
--- NOTE | 2018-12-28 07:30 | NUR ---
NURSE NOTES: Patient is in bed asleep. Stable. No signs of distress noted. Breathing is even and unlabored. Patient in bed in locked and lowest position wtih call light wtihin reach. All safety measures provided. Will continue to monitor.
[2018-12-28] MEDS: dilTIAZem HCl CD 120mg cap ORAL SCH (09:05)
[2018-12-28] MEDS: Eliquis 5mg tablet ORAL SCH ×2 (09:05→17:36)
--- NOTE | 2018-12-28 10:53 | Hematology/Onc Progress Note ---
Assessment/Plan Assessment/Plan # Anemia of chronic disease due to underlying chronic medical issues, multifactorial --> Anemia workup has been reviewed. Ferritin 83, TIBC 242 --> No evidence of hemolysis is noted, peripheral smear has been reviewed. --> Hgb goal >7. Transfuse prn. --> Epogen or iron at this time is not particularly indicated --> Medications have been reviewed --> hgb trend 14.1-->12.5--> 12.3-->11-->11.2-->10 --> still has been refusing labs AGAIN and AGAIN # Thrombocytopenia - potential causes multifactorial, evaluate liver and viral etiologies to begin, also could be related to underlying medications patient has received. --> Hep panel and HIV on PRIOR admission was negative --> US abd negative for cirrhosis and hsm --> Peripheral smear ordered to evaluate for blasts/schistocytes, none noted --> abx and other meds have been reviewed (one contributor could be depakote) --> ok for ppx if plt >50k w/ either heparin or lovenox --> Plt trend 118-->169k-->187k--> 102K->133k-->154k-->182k # FTT with decreased bmi on admission --> began on mirtazapine, to continue at this time --> daily weight and monitor # Atelectasis, optimize pulmonary hygiene/mobilize as tolerated --> on cxr appears stable --> per pulm recs # Paroxysmal AFib, per cardiology recs--> on noac --> on eliquis (ok to continue) # Hypertension --> controlled, sbp goal <140 --> as per cards # Hypothyroidism --> Synthroid po to continue # Lactic acidosis --> has resolved # MACARENA which has resolved --> per renal care # Placement pending --> rehab, and pt/ot The timing of this note does not necessarily reflect the time of the patient was seen. Greatly appreciate consultation! Subjective Constitutional: Denies: no symptoms, chills, fever, malaise, weakness, other HEENT: Denies: no symptoms, eye pain, blurred vision, tearing, double vision, ear pain, ear discharge, nose pain, nose congestion, throat pain, throat swelling, mouth pain, mouth swelling, other Respiratory: Denies: no symptoms, cough, shortness of breath, SOB with excertion, SOB at rest, sputum, wheezing, other Gastrointestinal/Abdominal: Denies: no symptoms, abdomen distended, abdominal pain, black stools, tarry stools, blood in stool, constipated, diarrhea, difficulty swallowing, nausea, poor appetite, poor fluid intake, rectal bleeding , vomiting, other Genitourinary: Denies: no symptoms, burning, discharge, frequency, flank pain, hematuria, incontinence, pain, urgency, other Neurologic/Psychiatric: Denies: no symptoms, anxiety, depressed, emotional problems, headache, numbness, paresthesia, pre-existing deficit, seizure, tingling, tremors, weakness, other Allergies: Coded Allergies: RISPERIDONE (Unverified Allergy, Unknown, 07/04/18) ZIPRASIDONE (Verified Allergy, Unknown, 06/30/18) Subjective 11/06: Pt resting in bed. No acute distress. DC planning. 11/08: Pt asleep in bed. No acute events. 11/10: Pt stable, no signs of acute distress or SOB. Venous duplex negative. 11/11: Pt resting in bed. Afebrile, no sob. MRI brain pending. 11/12: Pt in bed, sleeping. No respiratory distress noted. DC planning. 11/13: Pt awake and alert, refused morning meds. No signs of SOB or pain observed. Plt count significantly improved overnight. 11/15: Pt denies pain, no complaints of dyspnea 11/17: Pt resting in bed no chest pain or dyspnea, no other complaints 11/18: unable to place picc given do not have consent 11/20: no acute events reported. 11/21: pt refused am labs as well as am meds. h/h stable from prior labs. 11/22: pt no acute distress. Afebrile, VS reviewed. 11/23: no events reported, no f/c noted 11/24: refusing to participate in exam, labs have been reviewed 11/25: eating ensure this am, discharge planning pending, deandre CM 11/26: on noac, continues, no bleeding, hgb is 11.2 11/27: refusing labs this am, discussed with him importance 11/28: resting comfortably, no acute events, no bleeding reported, no night sweats 11/29: no events, no bleeding reported, no night sweats 11/30: no events, no bleeding, no chills, no major night sweats 12/01: getting rehab, pt/ot as needed, no f/c 12/02: walking around the priest with a FWW, says feeling better 12/03: given ativan overnight, feeling better 12/04: awake and alert, no acute events, placement pending 12/05: awake and alert, resting in bed, no acute events. 12/06: anxious and aggravated, vs stable, placement pending per rehabilitation case coordinator 12/07: no events to report, no f/c, no night sweats refusing po, will start on mirtazpine 12/08: no events noted, no f/c, no night sweats, no bleeding noted 12/09: no events, eating breakfast, cbc again reordered 12/10: no fevers or chills noted, no bleeding, no events, pending placement 12/11: walking around in hallway, no complaints, eating 12/12: labs reviewed, cbc still refusing in the am 12/13: asleep, still refusing labs, no fc 12/14: no events noted, no bleeding, no fc 12/15: not agitated, sinemet has been started per neuro 12/16: dc when public guardian raises money 12/17: dc planning as early as today, alert no complaints this am 12/18: no f/c, no night sweats, no bleeding noted 12/20: is on eliquis, sleeping, i woke him up, again refusing cbc 12/21: no bleeding, no chill, no night sweats, examined with rn, refusing to be seen 12/22: no events to report, no bleeding, no f/c 12/23: on eliquis, has been refusing POs, refusing exam too 12/24: sleeping, arousable, no major events 12/25: no events no bleeding, no chills noted, refusing again exam, and labs 12/27: pending placement, no new recs, no f/c noted, no bleeding 12/28: no fevers or chills noted, no bleeding, still refusing lab draws Objective Objective Current Medications Medications (Trade) Dose Ordered Sig/Eduardo Route PRN Reason Start Time Stop Time Status Last Admin Dose Admin Acetaminophen (Tylenol) 650 mg Q4H PRN ORAL Mild Pain/Temp > 100.5 12/02/18 01:00 01/01/19 00:59 12/06/18 00:22 Apixaban (Eliquis) 5 mg BID ORAL 12/05/18 15:00 01/04/19 14:59 12/28/18 09:05 Diltiazem HCl (Cardizem CD) 120 mg DAILY ORAL 12/28/18 09:00 01/27/19 08:59 12/28/18 09:05 Mirtazapine (Remeron) 7.5 mg BEDTIME ORAL 12/07/18 21:00 01/06/19 20:59 12/27/18 20:39 Last 24 Hour Vital Signs Date Time Temp Pulse Resp B/P (MAP) Pulse Ox O2 Delivery O2 Flow Rate FiO2 12/28/18 09:05 96 124/84 12/28/18 04:00 98.2 76 18 120/78 (92) 98 12/28/18 00:00 97.2 77 18 118/74 (89) 97 12/27/18 20:01 98.2 70 18 120/68 (85) 98 12/27/18 16:00 98.3 67 18 114/70 (85) 98 12/27/18 12:04 97.9 91 17 109/74 (86) 95 12/27/18 09:00 118/63 12/27/18 09:00 83 118/63 12/27/18 08:00 97.9 83 18 118/63 (81) 100 12/27/18 04:00 97.2 77 18 117/74 (88) 97 12/27/18 00:00 97.0 69 18 116/77 (90) 98 12/26/18 21:00 Room Air 12/26/18 20:00 97.2 71 18 118/84 (95) 97 12/26/18 16:00 98.6 71 17 127/81 (96) 97 12/26/18 12:00 98.1 70 17 124/84 (97) 99 Intake and Output 12/27/18 12/28/18 19:00 07:00 Intake Total 238 ml 560 ml Balance 238 ml 560 ml Intake Oral 238 ml 560 ml # Voids 3 2 Height (Feet): 5 Height (Inches): 6.00 Weight (Pounds): 121 Objective PE: VITAL SIGNS: Have been reviewed. CHEST: Clear to auscultation. CV: Regular rate and rhythm. No murmurs or extra sounds. GASTROINTESTINAL: Soft, nontender, and nondistended. No organomegaly. EXTREMITIES: No edema. Moves all four extremities. NEUROLOGIC: Sensory intact to light touch. Reflexes are equal on both sides. Bennie Goss MD Dec 28, 2018 10:53
--- NOTE | 2018-12-28 15:02 | NUR ---
Marketing RepFood Safety Director SI: GI Bleed BP:140/95 T:97.3 RR:21 HR:84 02 Sat:99% IS:ELIQUIS PO CARDIZEM PO Placement Pending M/S STATUS
--- NOTE | 2018-12-28 15:46 | NUR ---
*-* INSURANCE *-* UPDATED CLINICALS HAVE BEEN FAXED TO: [facility] F:[phone]
--- NOTE | 2018-12-28 19:30 | NUR ---
HAND-OFF: Report given to Radha JARAMILLO. Patient is stable.
--- NOTE | 2018-12-28 19:59 | General Progress Note ---
Assessment/Plan Status: stable, unchanged Assessment/Plan: Assessment/Plan Status: stable, unchanged Assessment/Plan: 63 y/o man with hx of paroxysmal atrial fibrillation, presented to the hospital with pre-syncope, found to have rapid atrial fibrillation. # Hypotension - lisinopril stopped - Monitor BP - stable #Paroxysmal Atrial Fibrillation #Atrial fibrillation with RVR - Cont beta zack and Diltiazem for rate control - holding parameters. - Cont NOAC.. - echo did not show any remarkable changes - Apprec cardiology recs #Anemia due to chronic illness #Thrombocytopenia - Hgb and platelet count appeared to be at baseline, seen by Hematology, no new changes recommended. Labs stable. #unstable gait -continue PT - PATIENT WILL NEED TO BE WITHOUT FWW in order to return to his [facility]. Recommend DC to assisted living facility at DC per PT final report. Otherwise, will need new placement. district manager in training follow up is needed. WENDY note for conservator reviewed. #Behavorial disorder -psych meds restarted -psychiatry consulted # Disposition Difficult placement. Per skilled nursing case manager no insurance available. [facility] notes reported [facility]. Need to continue efforts by CM and SW to place. WENDY spoke with Daily Sequeira [phone] who states Veronica spoke with SSI and patient' s SSI will be reinstated December 17. WENDY inquired about placement. Daily indicted she will contact various board and cares but could not guarantee she would locate placement due to patient currently not having income. ( PER DISCUSSION WITH RN, CURRENT CONSERVATOR MANAGES THE PATIENT'S MONEY) WENDY updated CM. Will continue to follow up. Medically stable for discharge when placement is approved. Subjective ROS Limited/Unobtainable: Yes Allergies: Coded Allergies: RISPERIDONE (Unverified Allergy, Unknown, 07/04/18) ZIPRASIDONE (Verified Allergy, Unknown, 06/30/18) Objective Last 24 Hour Vital Signs Date Time Temp Pulse Resp B/P (MAP) Pulse Ox O2 Delivery O2 Flow Rate FiO2 12/28/18 16:00 98.2 77 22 146/93 (110) 99 12/28/18 12:00 97.3 84 21 140/95 (110) 99 12/28/18 09:05 96 124/84 12/28/18 08:00 97.4 96 16 124/84 (97) 97 12/28/18 04:00 98.2 76 18 120/78 (92) 98 12/28/18 00:00 97.2 77 18 118/74 (89) 97 12/27/18 20:01 98.2 70 18 120/68 (85) 98 Intake and Output 12/27/18 12/28/18 18:59 06:59 Intake Total 238 ml 560 ml Balance 238 ml 560 ml Intake Oral 238 ml 560 ml # Voids 3 2 Height (Feet): 5 Height (Inches): 6.00 Weight (Pounds): 121 General Appearance: WD/WN EENT: PERRL/EOMI Neck: non-tender Cardiovascular: normal rate Respiratory/Chest: lungs clear Abdomen: normal bowel sounds Neurologic: tone regulator II-XII grossly normal Skin: normal pigmentation Galo Wallis MD Dec 28, 2018 19:59
--- NOTE | 2018-12-28 23:19 | NUR ---
NURSE NOTE: Pt is oriented to self, day off week, and place with intermittent confusion. VSS. Orders reviewed. Pt does not endorse any complaints. Pt sat in hallway at nurse's station from shift start and went to lay down at approx 2230. Will continue to monitor.
[2018-12-29 04:00] VITALS: BP 106/66
--- NOTE | 2018-12-29 07:07 | NUR ---
HAND-OFF: Report given to ELLA Banerjee. Pt is stable.
[2018-12-29 08:00] VITALS: BP 114/71
--- NOTE | 2018-12-29 08:23 | NUR ---
SS note Mikey Casey to assist with [facility] application for placement. Patient requires higher level of care due to dementia/making attempts to wander outside of the unit.
[2018-12-29] MEDS: Eliquis 5mg tablet ORAL SCH ×2 (09:15→18:00)
[2018-12-29] MEDS: dilTIAZem HCl CD 120mg cap ORAL SCH (09:17)
--- NOTE | 2018-12-29 09:53 | NUR ---
NURSE NOTES: Received report. from ELLA Banerjee patient laying on bed with out no distress, VS WNL, will continue to monitor.
--- NOTE | 2018-12-29 10:31 | NUR ---
RD ASSESSMENT & RECOMMENDATIONS SEE CARE ACTIVITY FOR COMPLETE ASSESSMENT DAILY ESTIMATED NEEDS: Needs based on cardiac/ 56kg 25-30 kcals/kg 8936-5405 total kcals 1-1.5 g protein/kg 56-84 g total protein 25-30 mL/kg 7711-0765 total fluid mLs NUTRITION DIAGNOSIS: Increased kcal/prot intake needs R/T wt loss as evidenced by pt w/ possible significant wt loss of 23lbs/17.5% in 4 months, poor PO intake upon adm, now w/ irregular/ variable intake CURRENT DIET:REGULAR + Ensure Enlive TID w/ meals PO DIET RECOMMENDATIONS: Maintain liberalized REGULAR diet + continue Ensure Enlive TID w/ meals ADDITIONAL RECOMMENDATIONS: * Calibrated bedscale wt on 12/26=56.4kg (124lbs) -> rec weekly wt monitoring given h/o possible wt loss, poor PO * Updated CBC and BMP as able - refusing blood draws * Vit D 1000 IU daily (low Vit D25=29) * Consider additional appetite stimulant (on Remeron at this time) -> refusing meals again, also w/ decreased Ensure intake * Consider psych re-eval: last seen 12/18, zyprexa last given 12/11
--- NOTE | 2018-12-29 11:11 | NUR ---
*-* INSURANCE *-* UPDATED CLINICALS HAVE BEEN FAXED TO: [facility] F:[phone]
[2018-12-29 11:56] VITALS: BP 107/68
--- NOTE | 2018-12-29 12:04 | NUR ---
AGRICULTURISTCOBOL PROGRAMMER SI: GI BLEED T. 98.4 HR 82 RR 16 B/P 107/68 BUN 33 IS: CARDIZEM PO REMERON PO ELIQUISE PO PLACEMENT PENDING MED/SURG STATUS
--- NOTE | 2018-12-29 12:20 | NUR ---
MANAGER OF PROGRAM NOTES SPOKE WITH LÁZARO PUBLIC GUARDIAN, MADE AWARE OF THE CHALLENGES, DCP ONGOING. LÁZARO [phone]
--- NOTE | 2018-12-29 13:16 | NUR ---
*-* INSURANCE *-* UPDATED CLINICALS HAVE BEEN FAXED TO: [facility] F:[phone]
--- NOTE | 2018-12-29 13:24 | General Progress Note ---
Assessment/Plan Status: stable, unchanged Assessment/Plan: Assessment/Plan Status: stable, unchanged Assessment/Plan: 63 y/o man with hx of paroxysmal atrial fibrillation, presented to the hospital with pre-syncope, found to have rapid atrial fibrillation. # Hypotension - lisinopril stopped - Monitor BP - stable #Paroxysmal Atrial Fibrillation #Atrial fibrillation with RVR - Cont beta zack and Diltiazem for rate control - holding parameters. - Cont NOAC.. - echo did not show any remarkable changes - Apprec cardiology recs #Anemia due to chronic illness #Thrombocytopenia - Hgb and platelet count appeared to be at baseline, seen by Hematology, no new changes recommended. #unstable gait -continue PT - PATIENT WILL NEED TO BE WITHOUT FWW in order to return to his [facility]. Recommend DC to assisted living facility at [place] per PT final report. Otherwise, will need new placement. manager eligibility follow up is needed. WENDY note for conservator reviewed. #Behavorial disorder -psych meds restarted -psychiatry consulted # Disposition Difficult placement. Per case supervisor no insurance available. [facility] Need to continue efforts by CM and WENDY to place. WENDY spoke with Daily Sequeira [phone] who states Veronica spoke with SSI and patient' s SSI will be reinstated December 17. WENDY inquired about placement. Daily indicted she will contact various board and cares but could not guarantee she would locate placement due to patient currently not having income. ( PER DISCUSSION WITH RN, CURRENT CONSERVATOR MANAGES THE PATIENT'S MONEY) WENDY updated CM. Will continue to follow up. Medically stable for discharge when placement is approved. Subjective ROS Limited/Unobtainable: No Allergies: Coded Allergies: RISPERIDONE (Unverified Allergy, Unknown, 07/04/18) ZIPRASIDONE (Verified Allergy, Unknown, 06/30/18) All Systems: reviewed and negative except above Objective Last 24 Hour Vital Signs Date Time Temp Pulse Resp B/P (MAP) Pulse Ox O2 Delivery O2 Flow Rate FiO2 12/29/18 11:56 98.4 82 16 107/68 (81) 96 12/29/18 09:17 92 114/75 12/29/18 08:00 98.1 92 17 114/71 (85) 97 12/29/18 04:00 97.6 67 18 106/66 (79) 95 12/28/18 23:42 97.6 69 18 141/97 (112) 96 12/28/18 20:00 98.3 71 18 151/88 (109) 96 12/28/18 16:00 98.2 77 22 146/93 (110) 99 Intake and Output 12/28/18 12/29/18 19:00 07:00 Intake Total 800 ml Balance 800 ml Intake Oral 800 ml # Voids 2 4 Height (Feet): 5 Height (Inches): 6.00 Weight (Pounds): 121 General Appearance: WD/WN EENT: PERRL/EOMI Cardiovascular: normal rate Respiratory/Chest: lungs clear Abdomen: non tender, no mass Neurologic: ehs engineer II-XII grossly normal Skin: normal pigmentation Galo Wallis MD Dec 29, 2018 13:24
--- NOTE | 2018-12-29 15:14 | NUR ---
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
--- NOTE | 2018-12-29 16:26 | Hematology/Onc Progress Note ---
Assessment/Plan Assessment/Plan # Anemia of chronic disease due to underlying chronic medical issues, multifactorial --> Anemia workup has been reviewed. Ferritin 83, TIBC 242 --> No evidence of hemolysis is noted, peripheral smear has been reviewed. --> Hgb goal >7. Transfuse prn. --> Epogen or iron at this time is not particularly indicated --> Medications have been reviewed --> hgb trend 14.1-->12.5--> 12.3-->11-->11.2-->10 --> still has been refusing labs AGAIN and AGAIN # Thrombocytopenia - potential causes multifactorial, evaluate liver and viral etiologies to begin, also could be related to underlying medications patient has received. --> Hep panel and HIV on PRIOR admission was negative --> US abd negative for cirrhosis and hsm --> Peripheral smear ordered to evaluate for blasts/schistocytes, none noted --> abx and other meds have been reviewed (one contributor could be depakote) --> ok for ppx if plt >50k w/ either heparin or lovenox --> Plt trend 118-->169k-->187k--> 102K->133k-->154k-->182k # FTT with decreased bmi on admission --> began on mirtazapine, to continue at this time --> daily weight and monitor # Atelectasis, optimize pulmonary hygiene/mobilize as tolerated --> on cxr appears stable --> per pulm recs # Paroxysmal AFib, per cardiology recs--> on noac --> on eliquis (ok to continue) # Hypertension --> controlled, sbp goal <140 --> as per cards # Hypothyroidism --> Synthroid po to continue # Lactic acidosis --> has resolved # MACARENA which has resolved --> per renal care # Placement pending --> rehab, and pt/ot -> difficult with placement with insurance The timing of this note does not necessarily reflect the time of the patient was seen. Greatly appreciate consultation! Subjective Constitutional: Denies: no symptoms, chills, fever, malaise, weakness, other Cardiovascular: Denies: no symptoms, chest pain, edema, irregular heart rate, lightheadedness, palpitations, syncope, other Respiratory: Denies: no symptoms, cough, shortness of breath, SOB with excertion, SOB at rest, sputum, wheezing, other Gastrointestinal/Abdominal: Denies: no symptoms, abdomen distended, abdominal pain, black stools, tarry stools, blood in stool, constipated, diarrhea, difficulty swallowing, nausea, poor appetite, poor fluid intake, rectal bleeding , vomiting, other Genitourinary: Denies: no symptoms, burning, discharge, frequency, flank pain, hematuria, incontinence, pain, urgency, other Neurologic/Psychiatric: Denies: no symptoms, anxiety, depressed, emotional problems, headache, numbness, paresthesia, pre-existing deficit, seizure, tingling, tremors, weakness, other Allergies: Coded Allergies: RISPERIDONE (Unverified Allergy, Unknown, 07/04/18) ZIPRASIDONE (Verified Allergy, Unknown, 06/30/18) Subjective 11/06: Pt resting in bed. No acute distress. DC planning. 11/08: Pt asleep in bed. No acute events. 11/10: Pt stable, no signs of acute distress or SOB. Venous duplex negative. 11/11: Pt resting in bed. Afebrile, no sob. MRI brain pending. 11/12: Pt in bed, sleeping. No respiratory distress noted. DC planning. 11/13: Pt awake and alert, refused morning meds. No signs of SOB or pain observed. Plt count significantly improved overnight. 11/15: Pt denies pain, no complaints of dyspnea 11/17: Pt resting in bed no chest pain or dyspnea, no other complaints 11/18: unable to place picc given do not have consent 11/20: no acute events reported. 11/21: pt refused am labs as well as am meds. h/h stable from prior labs. 11/22: pt no acute distress. Afebrile, VS reviewed. 11/23: no events reported, no f/c noted 11/24: refusing to participate in exam, labs have been reviewed 11/25: eating ensure this am, discharge planning pending, deandre FERRARI 11/26: on noac, continues, no bleeding, hgb is 11.2 11/27: refusing labs this am, discussed with him importance 11/28: resting comfortably, no acute events, no bleeding reported, no night sweats 11/29: no events, no bleeding reported, no night sweats 11/30: no events, no bleeding, no chills, no major night sweats 12/01: getting rehab, pt/ot as needed, no f/c 12/02: walking around the priest with a FWW, says feeling better 12/03: given ativan overnight, feeling better 12/04: awake and alert, no acute events, placement pending 12/05: awake and alert, resting in bed, no acute events. 12/06: anxious and aggravated, vs stable, placement pending per pillowcase turner 12/07: no events to report, no f/c, no night sweats refusing po, will start on mirtazpine 12/08: no events noted, no f/c, no night sweats, no bleeding noted 12/09: no events, eating breakfast, cbc again reordered 12/10: no fevers or chills noted, no bleeding, no events, pending placement 12/11: walking around in hallway, no complaints, eating 12/12: labs reviewed, cbc still refusing in the am 12/13: asleep, still refusing labs, no fc 12/14: no events noted, no bleeding, no fc 12/15: not agitated, sinemet has been started per neuro 12/16: dc when public guardian raises money 12/17: dc planning as early as today, alert no complaints this am 12/18: no f/c, no night sweats, no bleeding noted 12/20: is on eliquis, sleeping, i woke him up, again refusing cbc 12/21: no bleeding, no chill, no night sweats, examined with rn, refusing to be seen 12/22: no events to report, no bleeding, no f/c 12/23: on eliquis, has been refusing POs, refusing exam too 12/24: sleeping, arousable, no major events 12/25: no events no bleeding, no chills noted, refusing again exam, and labs 12/27: pending placement, no new recs, no f/c noted, no bleeding 12/28: no fevers or chills noted, no bleeding, still refusing lab draws 12/29: recommended he have labs drawn, he refused Objective Objective Current Medications Medications (Trade) Dose Ordered Sig/Eduardo Route PRN Reason Start Time Stop Time Status Last Admin Dose Admin Acetaminophen (Tylenol) 650 mg Q4H PRN ORAL Mild Pain/Temp > 100.5 12/02/18 01:00 01/01/19 00:59 12/06/18 00:22 Apixaban (Eliquis) 5 mg BID ORAL 12/05/18 15:00 01/04/19 14:59 12/29/18 09:15 Diltiazem HCl (Cardizem CD) 120 mg DAILY ORAL 12/28/18 09:00 01/27/19 08:59 12/29/18 09:17 Mirtazapine (Remeron) 7.5 mg BEDTIME ORAL 12/07/18 21:00 01/06/19 20:59 12/28/18 20:59 Last 24 Hour Vital Signs Date Time Temp Pulse Resp B/P (MAP) Pulse Ox O2 Delivery O2 Flow Rate FiO2 12/29/18 11:56 98.4 82 16 107/68 (81) 96 12/29/18 09:17 92 114/75 12/29/18 08:00 98.1 92 17 114/71 (85) 97 12/29/18 04:00 97.6 67 18 106/66 (79) 95 12/28/18 23:42 97.6 69 18 141/97 (112) 96 12/28/18 20:00 98.3 71 18 151/88 (109) 96 12/28/18 16:00 98.2 77 22 146/93 (110) 99 12/28/18 12:00 97.3 84 21 140/95 (110) 99 12/28/18 09:05 96 124/84 12/28/18 08:00 97.4 96 16 124/84 (97) 97 12/28/18 04:00 98.2 76 18 120/78 (92) 98 12/28/18 00:00 97.2 77 18 118/74 (89) 97 12/27/18 20:01 98.2 70 18 120/68 (85) 98 Intake and Output 12/28/18 12/29/18 19:00 07:00 Intake Total 800 ml Balance 800 ml Intake Oral 800 ml # Voids 2 4 Height (Feet): 5 Height (Inches): 6.00 Weight (Pounds): 121 Objective PE: VITAL SIGNS: Have been reviewed. CHEST: Clear to auscultation. CV: Regular rate and rhythm. No murmurs or extra sounds. GASTROINTESTINAL: Soft, nontender, and nondistended. No organomegaly. EXTREMITIES: No edema. Moves all four extremities. NEUROLOGIC: Sensory intact to light touch. Reflexes are equal on both sides. Bennie Goss MD Dec 29, 2018 16:26
[2018-12-29 16:45] VITALS: BP 135/84
--- NOTE | 2018-12-29 19:41 | Neurology Progress Note ---
Interim History Interim History ROS Limited/Unobtainable: No Complaints: Pre-syncope Events: no changes Interim History ambulating Objective Physical Exam Last Vital Signs Date Time Temp Pulse Resp B/P (MAP) Pulse Ox O2 Delivery O2 Flow Rate FiO2 12/29/18 16:45 97.4 94 18 135/84 (101) 97 12/26/18 21:00 Room Air General: well developed, well nourished Head: normocophalic Neck: no rigidity EENT: benign Neurologic Exam Mental Status: awake, alert, oriented x4, normal cognition, good mathematical skills, normal recent memory, normal remote memory, preserved visuospatial function Speech: normal speech, no dysarthia Language: normal language, no aphasia Cranial Nerve II: fundus normal, visual francis, no papilledema Cranial Nerves III, IV, : PERRLA, EOMI, pupils Cranial Nerve V: normal facial sensations, temporales function normal, masseters function normal, pterygoids function normal Cranial Nerve VII: no facial asymmetry, normal facial expressions Cranial Nerve VIII: normal hearing, no nystagmus Cranial Nerve IX: normal palate elevation, gag response Cranial Nerve X: no voice hoarseness Cranial Nerve XI: SCM symmetric, trapezii function normal Cranial Nerve XII: tongue midline, no tongue atrophy/fasciculations Motor System: normal muscle tone, strength 5/5, no involuntary movement, no muscle wasting Sensory: normal pinprick, normal light touch, normal position sense, normal graphesthesia Coordination: normal finger to nose bilaterally, normal heel to ramsay bilaterally, negative Romberg test Deep Tendon Reflexes: 2+ bicep (L), 2+ bicep (R), 2+ tricep (L), 2+ tricep (R) , 2+ brachioradialis (L), 2+ brachioradialis (R), 2+ knee (L), 2+ knee (R), 2+ ankle (L), 2+ ankle (R) Stance: normal Gait: stable, normal regular, heel + toe gait Impression/Recommendations Problems: (1) Anemia (2) Pre-syncope (3) Hyponatremia (4) Dehydration (5) Syncope (6) Parkinsonism (7) HTN (hypertension) (8) Hypothyroid (9) Atrial fibrillation Status: stable, unchanged Diagnostic Impression Parkinsonism stable - trail of sinemet as outpatient once metabolic abnormalities resolve PT OT Cont NOAC will benefit from rehab placement Serjio Sharpe MD Dec 29, 2018 19:41
[2018-12-29 20:00] VITALS: BP 128/82
--- NOTE | 2018-12-29 20:13 | NUR ---
HAND-OFF: Report given to ELLA Barker pt. awake with out no distress laying on bed locked low position refused 1800 medication and dinner.
--- NOTE | 2018-12-29 20:15 | NUR ---
NURSE NOTES: Received report from ELLA Sebastian. Patient in bed resting. Did not eat dinner, and has refused 1800 medications. No IV access. Bed in low position, locked, side rails up x2, call light within reach. Encouraged to wear socks to get out of bed. Will continue to monitor.
--- NOTE | 2018-12-29 21:00 | NUR ---
NURSE NOTES: Taken a hand-off report from ELLA Barker. Initial rounding completed. Pt is resting in bed comfortably, no c/o noted. Vitals taken, VSS. pt repositioned self without difficulty, tolerated up ad mitchell/BRP with supervision. denies dizziness. call light w/in reach.
[2018-12-30 03:32] VITALS: BP 126/79
[2018-12-30 08:00] VITALS: BP 137/87
--- NOTE | 2018-12-30 08:15 | NUR ---
HAND-OFF: Report given to ELLA Sebastian.
--- NOTE | 2018-12-30 08:40 | Neurology Progress Note ---
Interim History Interim History ROS Limited/Unobtainable: No Complaints: Pre-syncope Events: no changes Interim History no new deficits Objective Physical Exam Last Vital Signs Date Time Temp Pulse Resp B/P (MAP) Pulse Ox O2 Delivery O2 Flow Rate FiO2 12/30/18 03:32 97.3 74 16 126/79 (95) 96 12/26/18 21:00 Room Air General: well developed, well nourished Head: normocophalic Neck: no rigidity EENT: benign Neurologic Exam Mental Status: awake, alert, oriented x4, normal cognition, good mathematical skills, normal recent memory, normal remote memory, preserved visuospatial function Speech: normal speech, no dysarthia Language: normal language, no aphasia Cranial Nerve II: fundus normal, visual francis, no papilledema Cranial Nerves III, IV, : PERRLA, EOMI, pupils Cranial Nerve V: normal facial sensations, temporales function normal, masseters function normal, pterygoids function normal Cranial Nerve VII: no facial asymmetry, normal facial expressions Cranial Nerve VIII: normal hearing, no nystagmus Cranial Nerve IX: normal palate elevation, gag response Cranial Nerve X: no voice hoarseness Cranial Nerve XI: SCM symmetric, trapezii function normal Cranial Nerve XII: tongue midline, no tongue atrophy/fasciculations Motor System: normal muscle tone, strength 5/5, no involuntary movement, no muscle wasting Sensory: normal pinprick, normal light touch, normal position sense, normal graphesthesia Coordination: normal finger to nose bilaterally, normal heel to ramsay bilaterally, negative Romberg test Deep Tendon Reflexes: 2+ bicep (L), 2+ bicep (R), 2+ tricep (L), 2+ tricep (R) , 2+ brachioradialis (L), 2+ brachioradialis (R), 2+ knee (L), 2+ knee (R), 2+ ankle (L), 2+ ankle (R) Stance: normal Gait: stable, normal regular, heel + toe gait Impression/Recommendations Problems: (1) Anemia (2) Pre-syncope (3) Hyponatremia (4) Dehydration (5) Syncope (6) Parkinsonism (7) HTN (hypertension) (8) Hypothyroid (9) Atrial fibrillation Status: stable, unchanged Diagnostic Impression Parkinsonism stable - trail of sinemet as outpatient once metabolic abnormalities resolve PT OT Cont NOAC will benefit from rehab placement Serjio Sharpe MD Dec 30, 2018 08:40
[2018-12-30] MEDS: Eliquis 5mg tablet ORAL SCH ×2 (09:22→17:22)
[2018-12-30] MEDS: dilTIAZem HCl CD 120mg cap ORAL SCH (09:23)
--- NOTE | 2018-12-30 10:14 | General Progress Note ---
Assessment/Plan Status: stable, unchanged Assessment/Plan: Assessment/Plan Status: stable, unchanged Assessment/Plan: 63 y/o man with hx of paroxysmal atrial fibrillation, presented to the hospital with pre-syncope, found to have rapid atrial fibrillation. # Hypotension - lisinopril stopped - Monitor BP - stable #Paroxysmal Atrial Fibrillation #Atrial fibrillation with RVR - Cont beta zack and Diltiazem for rate control - holding parameters. - Cont NOAC.. - echo did not show any remarkable changes - Apprec cardiology recs #Anemia due to chronic illness #Thrombocytopenia - Hgb and platelet count appeared to be at baseline, seen by Hematology, no new changes recommended. #unstable gait -continue PT - PATIENT WILL NEED TO BE WITHOUT FWW in order to return to his [facility]. Recommend DC to assisted living facility at [place] per PT final report. Otherwise, will need new placement. producer arborist manager follow up is needed. WENDY note for conservator reviewed. #Behavorial disorder -psych meds restarted -psychiatry consulted # Disposition Difficult placement. Per casework specialist no insurance available. [facility] Need to continue efforts by CM and WENDY to place. WENDY spoke with Daily Sequeira [phone] who states Veronica spoke with SSI and patient' s SSI will be reinstated December 17. WENDY inquired about placement. Daily indicted she will contact various board and cares but could not guarantee she would locate placement due to patient currently not having income. ( PER DISCUSSION WITH RN, CURRENT CONSERVATOR MANAGES THE PATIENT'S MONEY) WENDY updated CM. Will continue to follow up. Medically stable for discharge when placement is approved. Subjective Constitutional: Reports: no symptoms Allergies: Coded Allergies: RISPERIDONE (Unverified Allergy, Unknown, 07/04/18) ZIPRASIDONE (Verified Allergy, Unknown, 06/30/18) All Systems: reviewed and negative except above Objective Last 24 Hour Vital Signs Date Time Temp Pulse Resp B/P (MAP) Pulse Ox O2 Delivery O2 Flow Rate FiO2 12/30/18 09:23 82 137/87 12/30/18 08:00 97.5 82 18 137/87 (104) 97 12/30/18 03:32 97.3 74 16 126/79 (95) 96 12/29/18 20:00 97.9 77 17 128/82 (97) 99 12/29/18 16:45 97.4 94 18 135/84 (101) 97 12/29/18 11:56 98.4 82 16 107/68 (81) 96 Intake and Output 12/29/18 12/30/18 19:00 07:00 Intake Total 720 ml Balance 720 ml Intake Oral 720 ml # Voids 7 Height (Feet): 5 Height (Inches): 6.00 Weight (Pounds): 121 General Appearance: WD/WN EENT: PERRL/EOMI Neck: non-tender Cardiovascular: normal rate Respiratory/Chest: lungs clear Abdomen: non tender Neurologic: 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
[2018-12-30 12:00] VITALS: BP 125/68
--- NOTE | 2018-12-30 13:32 | Hematology/Onc Progress Note ---
Assessment/Plan Assessment/Plan # Anemia of chronic disease due to underlying chronic medical issues, multifactorial --> Anemia workup has been reviewed. Ferritin 83, TIBC 242 --> No evidence of hemolysis is noted, peripheral smear has been reviewed. --> Hgb goal >7. Transfuse prn. --> Epogen or iron at this time is not particularly indicated --> Medications have been reviewed --> hgb trend 14.1-->12.5--> 12.3-->11-->11.2-->10 --> still has been refusing labs AGAIN and AGAIN # Thrombocytopenia - potential causes multifactorial, evaluate liver and viral etiologies to begin, also could be related to underlying medications patient has received. --> Hep panel and HIV on PRIOR admission was negative --> US abd negative for cirrhosis and hsm --> Peripheral smear ordered to evaluate for blasts/schistocytes, none noted --> abx and other meds have been reviewed (one contributor could be depakote) --> ok for ppx if plt >50k w/ either heparin or lovenox --> Plt trend 118-->169k-->187k--> 102K->133k-->154k-->182k # FTT with decreased bmi on admission --> began on mirtazapine, to continue at this time --> daily weight and monitor # Atelectasis, optimize pulmonary hygiene/mobilize as tolerated --> on cxr appears stable --> per pulm recs # Paroxysmal AFib, per cardiology recs--> on noac --> on eliquis (ok to continue) # Hypertension --> controlled, sbp goal <140 --> as per cards # Hypothyroidism --> Synthroid po to continue # Lactic acidosis --> has resolved # MACARENA which has resolved --> per renal care # Placement pending --> rehab, and pt/ot -> difficult with placement with insurance The timing of this note does not necessarily reflect the time of the patient was seen. Greatly appreciate consultation! Subjective Constitutional: Denies: no symptoms, chills, fever, malaise, weakness, other HEENT: Denies: no symptoms, eye pain, blurred vision, tearing, double vision, ear pain, ear discharge, nose pain, nose congestion, throat pain, throat swelling, mouth pain, mouth swelling, other Gastrointestinal/Abdominal: Denies: no symptoms, abdomen distended, abdominal pain, black stools, tarry stools, blood in stool, constipated, diarrhea, difficulty swallowing, nausea, poor appetite, poor fluid intake, rectal bleeding , vomiting, other Genitourinary: Denies: no symptoms, burning, discharge, frequency, flank pain, hematuria, incontinence, pain, urgency, other Neurologic/Psychiatric: Denies: no symptoms, anxiety, depressed, emotional problems, headache, numbness, paresthesia, pre-existing deficit, seizure, tingling, tremors, weakness, other Endocrine: Denies: no symptoms, excessive sweating, flushing, intolerance to cold, intolerance to heat, increased hunger, increased thirst, increased urine, unexplained weight gain, unexplained weight loss, other Allergies: Coded Allergies: RISPERIDONE (Unverified Allergy, Unknown, 07/04/18) ZIPRASIDONE (Verified Allergy, Unknown, 06/30/18) Subjective 11/06: Pt resting in bed. No acute distress. DC planning. 11/08: Pt asleep in bed. No acute events. 11/10: Pt stable, no signs of acute distress or SOB. Venous duplex negative. 11/11: Pt resting in bed. Afebrile, no sob. MRI brain pending. 11/12: Pt in bed, sleeping. No respiratory distress noted. DC planning. 11/13: Pt awake and alert, refused morning meds. No signs of SOB or pain observed. Plt count significantly improved overnight. 11/15: Pt denies pain, no complaints of dyspnea 11/17: Pt resting in bed no chest pain or dyspnea, no other complaints 11/18: unable to place picc given do not have consent 11/20: no acute events reported. 11/21: pt refused am labs as well as am meds. h/h stable from prior labs. 11/22: pt no acute distress. Afebrile, VS reviewed. 11/23: no events reported, no f/c noted 11/24: refusing to participate in exam, labs have been reviewed 11/25: eating ensure this am, discharge planning pending, dw CM 11/26: on noac, continues, no bleeding, hgb is 11.2 11/27: refusing labs this am, discussed with him importance 11/28: resting comfortably, no acute events, no bleeding reported, no night sweats 11/29: no events, no bleeding reported, no night sweats 11/30: no events, no bleeding, no chills, no major night sweats 12/01: getting rehab, pt/ot as needed, no f/c 12/02: walking around the priest with a FWW, says feeling better 12/03: given ativan overnight, feeling better 12/04: awake and alert, no acute events, placement pending 12/05: awake and alert, resting in bed, no acute events. 12/06: anxious and aggravated, vs stable, placement pending per case management specialist 12/07: no events to report, no f/c, no night sweats refusing po, will start on mirtazpine 12/08: no events noted, no f/c, no night sweats, no bleeding noted 12/09: no events, eating breakfast, cbc again reordered 12/10: no fevers or chills noted, no bleeding, no events, pending placement 12/11: walking around in hallway, no complaints, eating 12/12: labs reviewed, cbc still refusing in the am 12/13: asleep, still refusing labs, no fc 12/14: no events noted, no bleeding, no fc 12/15: not agitated, sinemet has been started per neuro 12/16: dc when public guardian raises money 12/17: dc planning as early as today, alert no complaints this am 12/18: no f/c, no night sweats, no bleeding noted 12/20: is on eliquis, sleeping, i woke him up, again refusing cbc 12/21: no bleeding, no chill, no night sweats, examined with rn, refusing to be seen 12/22: no events to report, no bleeding, no f/c 12/23: on eliquis, has been refusing POs, refusing exam too 12/24: sleeping, arousable, no major events 12/25: no events no bleeding, no chills noted, refusing again exam, and labs 12/27: pending placement, no new recs, no f/c noted, no bleeding 8/12: no fevers or chills noted, no bleeding, still refusing lab draws 12/29: recommended he have labs drawn, he refused 12/30: sergio again reordered labs, he says wont do them Objective Objective Current Medications Medications (Trade) Dose Ordered Sig/Eduardo Route PRN Reason Start Time Stop Time Status Last Admin Dose Admin Acetaminophen (Tylenol) 650 mg Q4H PRN ORAL Mild Pain/Temp > 100.5 12/02/18 01:00 01/01/19 00:59 12/06/18 00:22 Apixaban (Eliquis) 5 mg BID ORAL 12/05/18 15:00 01/04/19 14:59 12/30/18 09:22 Diltiazem HCl (Cardizem CD) 120 mg DAILY ORAL 12/28/18 09:00 01/27/19 08:59 12/30/18 09:23 Mirtazapine (Remeron) 7.5 mg BEDTIME ORAL 12/07/18 21:00 01/06/19 20:59 12/29/18 21:07 Last 24 Hour Vital Signs Date Time Temp Pulse Resp B/P (MAP) Pulse Ox O2 Delivery O2 Flow Rate FiO2 12/30/18 09:23 82 137/87 12/30/18 08:00 97.5 82 18 137/87 (104) 97 12/30/18 03:32 97.3 74 16 126/79 (95) 96 12/29/18 20:00 97.9 77 17 128/82 (97) 99 12/29/18 16:45 97.4 94 18 135/84 (101) 97 12/29/18 11:56 98.4 82 16 107/68 (81) 96 12/29/18 09:17 92 114/75 12/29/18 08:00 98.1 92 17 114/71 (85) 97 12/29/18 04:00 97.6 67 18 106/66 (79) 95 12/28/18 23:42 97.6 69 18 141/97 (112) 96 12/28/18 20:00 98.3 71 18 151/88 (109) 96 12/28/18 16:00 98.2 77 22 146/93 (110) 99 Intake and Output 12/29/18 12/30/18 19:00 07:00 Intake Total 720 ml Balance 720 ml Intake Oral 720 ml # Voids 7 Height (Feet): 5 Height (Inches): 6.00 Weight (Pounds): 121 Objective PE: VITAL SIGNS: Have been reviewed. CHEST: Clear to auscultation. CV: Regular rate and rhythm. No murmurs or extra sounds. GASTROINTESTINAL: Soft, nontender, and nondistended. No organomegaly. EXTREMITIES: No edema. Moves all four extremities. NEUROLOGIC: Sensory intact to light touch. Reflexes are equal on both sides. Bennie Goss MD Dec 30, 2018 13:32
[2018-12-30 16:00] VITALS: BP 131/65
--- NOTE | 2018-12-30 16:09 | NUR ---
*-* INSURANCE *-* UPDATED CLINICALS HAVE BEEN FAXED TO: [facility] F:[phone]
[2018-12-30 20:00] VITALS: BP 140/83
--- NOTE | 2018-12-30 20:05 | NUR ---
NURSE NOTES: Received report & pt from ELLA Sebastian. Pt lying in bed, a&ox3, in room air. No s/s of acute distress & no c/o pain at this time. No IV access noted & MD aware per report. Bed in lowest position, call light within reach. Will continue to monitor.
--- NOTE | 2018-12-30 20:05 | NUR ---
HAND-OFF: Report given to ELLA Hanson patient astable condition.
[2018-12-30 22:35] VITALS: BP_SYST 140; BP_SYST 160; BP_DIAS 83; BP_DIAS 97
--- NOTE | 2018-12-31 07:30 | NUR ---
HAND-OFF: Report given to ELLA Garnett. Rounds done. Pt in stable condition.
--- NOTE | 2018-12-31 07:33 | NUR ---
NURSE NOTES: WALKING ROUNDS DONE WITH OUTGOING RN. PATIENT ASLEEP IN BED. AROUSABLE TO NAME. BORA PAIN. BED IN LOWEST AND LOCKED POSITION,. CALL LIGHT WITHIN REACH.
[2018-12-31 08:00] VITALS: BP 112/76
[2018-12-31] MEDS: Eliquis 5mg tablet ORAL SCH ×2 (10:13→17:46)
[2018-12-31] MEDS: dilTIAZem HCl CD 120mg cap ORAL SCH (10:13)
--- NOTE | 2018-12-31 11:21 | NUR ---
SS note This SW received a call from [employer] Associate, Willian ([phone] Ext [phone]) who is aware of the barriers for placement and also recommending SNF placement due to income too low for locked assisted living placement. Willian will send a list of other possible options to this Sw via e-mail, but also explains patient will need Medi maría for placement. Willian explains Public Guardian was going to apply for Medi maría prior to this admission. Mikey Casey here informed to follow up regarding Medi maría application.
[2018-12-31 12:00] VITALS: BP 107/3
--- NOTE | 2018-12-31 12:28 | General Progress Note ---
Assessment/Plan Status: stable, unchanged Assessment/Plan: Assessment/Plan Status: stable, unchanged Assessment/Plan: 63 y/o man with hx of paroxysmal atrial fibrillation, presented to the hospital with pre-syncope, found to have rapid atrial fibrillation. # Hypotension - lisinopril stopped - Monitor BP - stable #Paroxysmal Atrial Fibrillation #Atrial fibrillation with RVR - Cont beta zack and Diltiazem for rate control - holding parameters. - Cont NOAC.. - echo did not show any remarkable changes - Apprec cardiology recs #Anemia due to chronic illness #Thrombocytopenia - Hgb and platelet count appeared to be at baseline, seen by Hematology, no new changes recommended. #unstable gait -continue PT - PATIENT WILL NEED TO BE WITHOUT FWW in order to return to his [facility]. Recommend DC to assisted living facility at DC per PT final report. Otherwise, will need new placement. dairy manager follow up is needed. WENDY note for conservator reviewed. #Behavorial disorder -psych meds restarted -psychiatry consulted # Disposition Difficult placement. Per therapeutic case manager no insurance available. [facility] notes reported [facility]. Need to continue efforts by CM and WENDY to place. WENDY spoke with Daily Sequeira [phone] who states Veronica spoke with SSI and patient' s SSI will be reinstated December 17. WENDY inquired about placement. Daily indicted she will contact various board and cares but could not guarantee she would locate placement due to patient currently not having income. ( PER DISCUSSION WITH RN, CURRENT CONSERVATOR MANAGES THE PATIENT'S MONEY) WENDY updated CM. Will continue to follow up. Medically stable for discharge when placement is approved. Subjective ROS Limited/Unobtainable: No Allergies: Coded Allergies: RISPERIDONE (Unverified Allergy, Unknown, 07/04/18) ZIPRASIDONE (Verified Allergy, Unknown, 06/30/18) All Systems: reviewed and negative except above Objective Last 24 Hour Vital Signs Date Time Temp Pulse Resp B/P (MAP) Pulse Ox O2 Delivery O2 Flow Rate FiO2 12/31/18 12:00 98.3 77 20 107/3 (37) 97 12/31/18 10:13 75 112/76 12/31/18 08:00 97.7 75 21 112/76 (88) 99 12/30/18 20:00 98.3 72 16 140/83 (102) 99 12/30/18 16:00 97.8 62 18 131/65 (87) 98 Intake and Output 12/30/18 12/31/18 19:00 07:00 Intake Total 400 ml 120 ml Output Total 1 ml Balance 399 ml 120 ml Intake Oral 400 ml 120 ml Stool Total 1 ml # Voids 2 2 Height (Feet): 5 Height (Inches): 6.00 Weight (Pounds): 121 General Appearance: WD/WN EENT: PERRL/EOMI Neck: non-tender Cardiovascular: normal rate Respiratory/Chest: lungs clear Abdomen: non tender Edema: trace edema Neurologic: zoogler II-XII grossly normal Galo Wallis MD Dec 31, 2018 12:28
--- NOTE | 2018-12-31 12:56 | NUR ---
DIVE SUPERINTENDENT NOTES SPOKE WITH FAMILIA FROM [facility], INQUIRY FAXED TO [phone]. PER FAMILIA SHE WILL REVIEW AND HAVE NURSE TO COME OUT AND INTERVIEW THE PT. FAMILIA [phone] Addendum: 12/31/18 at 1425 by ELENI JEFFREY RN RN RECEIVED CALL BACK FROM [facility] UNABLE TO ACCEPT PT DO TO HIS AGE. DCP ONGOING.
--- NOTE | 2018-12-31 12:56 | NUR ---
*-* DISCHARGE PLANNING *-* PATIENT HAS BEEN REFERRED TO: [facility] P: [phone] F: [phone]
--- NOTE | 2018-12-31 15:01 | Hematology/Onc Progress Note ---
Assessment/Plan Assessment/Plan # Anemia of chronic disease due to underlying chronic medical issues, multifactorial --> Anemia workup has been reviewed. Ferritin 83, TIBC 242 --> No evidence of hemolysis is noted, peripheral smear has been reviewed. --> Hgb goal >7. Transfuse prn. --> Epogen or iron at this time is not particularly indicated --> Medications have been reviewed --> hgb trend 14.1-->12.5--> 12.3-->11-->11.2-->10 --> still has been refusing labs AGAIN and AGAIN # Thrombocytopenia - potential causes multifactorial, evaluate liver and viral etiologies to begin, also could be related to underlying medications patient has received. --> Hep panel and HIV on PRIOR admission was negative --> US abd negative for cirrhosis and hsm --> Peripheral smear ordered to evaluate for blasts/schistocytes, none noted --> abx and other meds have been reviewed (one contributor could be depakote) --> ok for ppx if plt >50k w/ either heparin or lovenox --> Plt trend 118-->169k-->187k--> 102K->133k-->154k-->182k # FTT with decreased bmi on admission --> began on mirtazapine, to continue at this time --> daily weight and monitor # Atelectasis, optimize pulmonary hygiene/mobilize as tolerated --> on cxr appears stable --> per pulm recs # Paroxysmal AFib, per cardiology recs--> on noac --> on eliquis (ok to continue) # Hypertension --> controlled, sbp goal <140 --> as per cards # Hypothyroidism --> Synthroid po to continue # Lactic acidosis --> has resolved # MACARENA which has resolved --> per renal care # Placement pending --> rehab, and pt/ot -> difficult with placement with insurance The timing of this note does not necessarily reflect the time of the patient was seen. Greatly appreciate consultation! Subjective Constitutional: Denies: no symptoms, chills, fever, malaise, weakness, other HEENT: Denies: no symptoms, eye pain, blurred vision, tearing, double vision, ear pain, ear discharge, nose pain, nose congestion, throat pain, throat swelling, mouth pain, mouth swelling, other Cardiovascular: Denies: no symptoms, chest pain, edema, irregular heart rate, lightheadedness, palpitations, syncope, other Respiratory: Denies: no symptoms, cough, shortness of breath, SOB with excertion, SOB at rest, sputum, wheezing, other Genitourinary: Denies: no symptoms, burning, discharge, frequency, flank pain, hematuria, incontinence, pain, urgency, other Neurologic/Psychiatric: Denies: no symptoms, anxiety, depressed, emotional problems, headache, numbness, paresthesia, pre-existing deficit, seizure, tingling, tremors, weakness, other Endocrine: Denies: no symptoms, excessive sweating, flushing, intolerance to cold, intolerance to heat, increased hunger, increased thirst, increased urine, unexplained weight gain, unexplained weight loss, other Allergies: Coded Allergies: RISPERIDONE (Unverified Allergy, Unknown, 07/04/18) ZIPRASIDONE (Verified Allergy, Unknown, 06/30/18) Subjective 11/06: Pt resting in bed. No acute distress. DC planning. 11/08: Pt asleep in bed. No acute events. 11/10: Pt stable, no signs of acute distress or SOB. Venous duplex negative. 11/11: Pt resting in bed. Afebrile, no sob. MRI brain pending. 11/12: Pt in bed, sleeping. No respiratory distress noted. DC planning. 11/13: Pt awake and alert, refused morning meds. No signs of SOB or pain observed. Plt count significantly improved overnight. 11/15: Pt denies pain, no complaints of dyspnea 11/17: Pt resting in bed no chest pain or dyspnea, no other complaints 11/18: unable to place picc given do not have consent 11/20: no acute events reported. 11/21: pt refused am labs as well as am meds. h/h stable from prior labs. 11/22: pt no acute distress. Afebrile, VS reviewed. 11/23: no events reported, no f/c noted 11/24: refusing to participate in exam, labs have been reviewed 11/25: eating ensure this am, discharge planning pending, dw CM 11/26: on noac, continues, no bleeding, hgb is 11.2 11/27: refusing labs this am, discussed with him importance 11/28: resting comfortably, no acute events, no bleeding reported, no night sweats 11/29: no events, no bleeding reported, no night sweats 11/30: no events, no bleeding, no chills, no major night sweats 12/01: getting rehab, pt/ot as needed, no f/c 12/02: walking around the priest with a FWW, says feeling better 12/03: given ativan overnight, feeling better 12/04: awake and alert, no acute events, placement pending 12/05: awake and alert, resting in bed, no acute events. 12/06: anxious and aggravated, vs stable, placement pending per caser shoe parts 12/07: no events to report, no f/c, no night sweats refusing po, will start on mirtazpine 12/08: no events noted, no f/c, no night sweats, no bleeding noted 12/09: no events, eating breakfast, cbc again reordered 12/10: no fevers or chills noted, no bleeding, no events, pending placement 12/11: walking around in hallway, no complaints, eating 12/12: labs reviewed, cbc still refusing in the am 12/13: asleep, still refusing labs, no fc 12/14: no events noted, no bleeding, no fc 12/15: not agitated, sinemet has been started per neuro 12/16: dc when public guardian raises money 12/17: dc planning as early as today, alert no complaints this am 12/18: no f/c, no night sweats, no bleeding noted 12/20: is on eliquis, sleeping, i woke him up, again refusing cbc 12/21: no bleeding, no chill, no night sweats, examined with rn, refusing to be seen 12/22: no events to report, no bleeding, no f/c 12/23: on eliquis, has been refusing POs, refusing exam too 12/24: sleeping, arousable, no major events 12/25: no events no bleeding, no chills noted, refusing again exam, and labs 12/27: pending placement, no new recs, no f/c noted, no bleeding 12/28: no fevers or chills noted, no bleeding, still refusing lab draws 12/29: recommended he have labs drawn, he refused 12/30: sergio again reordered labs, he says wont do them 12/31: pending placement, no f/c, no night sweats, dw cm Objective Objective Current Medications Medications (Trade) Dose Ordered Sig/Eduardo Route PRN Reason Start Time Stop Time Status Last Admin Dose Admin Acetaminophen (Tylenol) 650 mg Q4H PRN ORAL Mild Pain/Temp > 100.5 12/02/18 01:00 01/01/19 00:59 12/06/18 00:22 Apixaban (Eliquis) 5 mg BID ORAL 12/05/18 15:00 01/04/19 14:59 12/31/18 10:13 Diltiazem HCl (Cardizem CD) 120 mg DAILY ORAL 12/28/18 09:00 01/27/19 08:59 12/31/18 10:13 Mirtazapine (Remeron) 7.5 mg BEDTIME ORAL 12/07/18 21:00 01/06/19 20:59 12/30/18 21:48 Last 24 Hour Vital Signs Date Time Temp Pulse Resp B/P (MAP) Pulse Ox O2 Delivery O2 Flow Rate FiO2 12/31/18 12:00 98.3 77 20 107/3 (37) 97 12/31/18 10:13 75 112/76 12/31/18 09:00 Room Air 12/31/18 08:00 97.7 75 21 112/76 (88) 99 12/30/18 20:00 98.3 72 16 140/83 (102) 99 12/30/18 16:00 97.8 62 18 131/65 (87) 98 12/30/18 12:00 98.5 78 16 125/68 (87) 96 12/30/18 09:23 82 137/87 12/30/18 08:00 97.5 82 18 137/87 (104) 97 12/30/18 03:32 97.3 74 16 126/79 (95) 96 12/29/18 20:00 97.9 77 17 128/82 (97) 99 12/29/18 16:45 97.4 94 18 135/84 (101) 97 Intake and Output 12/30/18 12/31/18 19:00 07:00 Intake Total 400 ml 120 ml Output Total 1 ml Balance 399 ml 120 ml Intake Oral 400 ml 120 ml Stool Total 1 ml # Voids 2 2 Height (Feet): 5 Height (Inches): 6.00 Weight (Pounds): 121 Objective PE: VITAL SIGNS: Have been reviewed. CHEST: Clear to auscultation. CV: Regular rate and rhythm. No murmurs or extra sounds. GASTROINTESTINAL: Soft, nontender, and nondistended. No organomegaly. EXTREMITIES: No edema. Moves all four extremities. NEUROLOGIC: Sensory intact to light touch. Reflexes are equal on both sides. Bennie Goss MD Dec 31, 2018 15:01
[2018-12-31 16:00] VITALS: BP 140/83
--- NOTE | 2018-12-31 16:06 | NUR ---
REGISTERED MAIL CLERKBOATSWAINS MATE SI: GI BLEED 98.3 HR 77 RR 20 B/P 112/76 IS: REMERON PO ELIQUISE PO CARDIZEM PO DCP PENDING PLACEMENT MED/SURG STATUS
--- NOTE | 2018-12-31 16:12 | NUR ---
Social Work This Sw re-faxed chart information and Medi maría eligibility (sent from Marielle Casey) to the following SNF: (accepts Dementia/Psych patients) 1) [facility]: fax [phone] ph [phone] 2) [facility] fax [phone] ph [phone] 3) [facility] fax [phone]
--- NOTE | 2018-12-31 16:15 | NUR ---
NURSE NOTES: PATIENT REFUSED BLOOD DRAW TODAY. Racheal VARELA NOTIFIED NO FURTHER INTERVENTIONS AT THIS TIME.
--- NOTE | 2018-12-31 16:16 | NUR ---
*-* INSURANCE *-* UPDATED CLINICALS HAVE BEEN FAXED TO: [facility] F:[phone]
--- NOTE | 2018-12-31 17:48 | NUR ---
NURSE NOTES: SKIN ASSESSMENT DONE TWICE THIS SHIFT; SKIN REMAINS INTACT.PATIENT STILL HAS POOR APPETITE. WILL CONTINUE TO ENCOURAGE PO.
--- NOTE | 2018-12-31 19:27 | NUR ---
HAND-OFF: Report given to TONG ANTONIO RN.
--- NOTE | 2018-12-31 20:59 | NUR ---
NURSE NOTES: Received report from AM RN Mariola. Patient is sleeping comfortably in bed. VSS, no SOB or signs of distress. Will continue to monitor.
--- NOTE | 2018-12-31 22:36 | Neurology Progress Note ---
Interim History Interim History ROS Limited/Unobtainable: No Complaints: Pre-syncope Events: no changes Interim History no new events Objective Physical Exam Last Vital Signs Date Time Temp Pulse Resp B/P (MAP) Pulse Ox O2 Delivery O2 Flow Rate FiO2 12/31/18 21:00 Room Air 12/31/18 16:00 98.5 73 20 140/83 (102) 99 General: well developed, well nourished Head: normocophalic Neck: no rigidity EENT: benign Neurologic Exam Mental Status: awake, alert, oriented x4, normal cognition, good mathematical skills, normal recent memory, normal remote memory, preserved visuospatial function Speech: normal speech, no dysarthia Language: normal language, no aphasia Cranial Nerve II: fundus normal, visual francis, no papilledema Cranial Nerves III, IV, : PERRLA, EOMI, pupils Cranial Nerve V: normal facial sensations, temporales function normal, masseters function normal, pterygoids function normal Cranial Nerve VII: no facial asymmetry, normal facial expressions Cranial Nerve VIII: normal hearing, no nystagmus Cranial Nerve IX: normal palate elevation, gag response Cranial Nerve X: no voice hoarseness Cranial Nerve XI: SCM symmetric, trapezii function normal Cranial Nerve XII: tongue midline, no tongue atrophy/fasciculations Motor System: normal muscle tone, strength 5/5, no involuntary movement, no muscle wasting Sensory: normal pinprick, normal light touch, normal position sense, normal graphesthesia Coordination: normal finger to nose bilaterally, normal heel to ramsay bilaterally, negative Romberg test Deep Tendon Reflexes: 2+ bicep (L), 2+ bicep (R), 2+ tricep (L), 2+ tricep (R) , 2+ brachioradialis (L), 2+ brachioradialis (R), 2+ knee (L), 2+ knee (R), 2+ ankle (L), 2+ ankle (R) Stance: normal Gait: stable, normal regular, heel + toe gait Impression/Recommendations Problems: (1) Anemia (2) Pre-syncope (3) Hyponatremia (4) Dehydration (5) Syncope (6) Parkinsonism (7) HTN (hypertension) (8) Hypothyroid (9) Atrial fibrillation Status: stable, unchanged Diagnostic Impression Parkinsonism stable - trail of sinemet as outpatient once metabolic abnormalities resolve PT OT Cont NOAC will benefit from rehab placement Serjio Sharpe MD Dec 31, 2018 22:36
[2019-01-01] VITALS: BP 120/77
--- NOTE | 2019-01-01 07:30 | NUR ---
NURSE NOTES: Patient is in bed asleep. Stable. No signs of distress noted. Breathing is even and unlabored. Patient in bed in locked and lowest position with call light within reach. All safety measures provided. Will continue to monitor.
--- NOTE | 2019-01-01 07:30 | NUR ---
HAND-OFF: Report given to ELLA Sams. Rounds done. Pt in stable condition.
[2019-01-01 08:00] VITALS: BP 110/85
[2019-01-01] MEDS: Eliquis 5mg tablet ORAL SCH ×2 (09:03→17:51)
[2019-01-01] MEDS: dilTIAZem HCl CD 120mg cap ORAL SCH (09:04)
--- NOTE | 2019-01-01 11:07 | General Progress Note ---
Assessment/Plan Status: stable, unchanged Assessment/Plan: Assessment/Plan Status: stable, unchanged Assessment/Plan: 63 y/o man with hx of paroxysmal atrial fibrillation, presented to the hospital with pre-syncope, found to have rapid atrial fibrillation. # Hypotension - lisinopril stopped - Monitor BP - stable #Paroxysmal Atrial Fibrillation #Atrial fibrillation with RVR - Cont beta zack and Diltiazem for rate control - holding parameters. - Cont NOAC.. - echo did not show any remarkable changes - Apprec cardiology recs #Anemia due to chronic illness #Thrombocytopenia - Hgb and platelet count appeared to be at baseline, seen by Hematology, no new changes recommended. #unstable gait -continue PT - PATIENT WILL NEED TO BE WITHOUT FWW in order to return to his [facility]. Recommend DC to assisted living facility at [place] per PT final report. Otherwise, will need new placement. commercial relationship manager follow up is needed. WENDY note for conservator reviewed. #Behavorial disorder -psych meds restarted -psychiatry consulted # Disposition Difficult placement. Per case maker no insurance available. [facility] Need to continue efforts by CM and WENDY to place. WENDY spoke with Daily Sequeira [phone] who states Veronica spoke with SSI and patient' s SSI will be reinstated December 17. WENDY inquired about placement. Daily indicted she will contact various board and cares but could not guarantee she would locate placement due to patient currently not having income. ( PER DISCUSSION WITH RN, CURRENT CONSERVATOR MANAGES THE PATIENT'S MONEY) WENDY updated CM. Will continue to follow up. Medically stable for discharge when placement is approved. Subjective ROS Limited/Unobtainable: No Allergies: Coded Allergies: RISPERIDONE (Unverified Allergy, Unknown, 07/04/18) ZIPRASIDONE (Verified Allergy, Unknown, 06/30/18) All Systems: reviewed and negative except above Objective Last 24 Hour Vital Signs Date Time Temp Pulse Resp B/P (MAP) Pulse Ox O2 Delivery O2 Flow Rate FiO2 01/01/19 09:04 73 110/85 01/01/19 09:00 Room Air 01/01/19 08:00 98.1 73 18 110/85 (93) 99 01/01/19 00:00 97.8 67 15 120/77 (91) 100 12/31/18 21:00 Room Air 12/31/18 16:00 98.5 73 20 140/83 (102) 99 12/31/18 12:00 98.3 77 20 107/3 (37) 97 Intake and Output 12/31/18 01/01/19 19:00 07:00 Intake Total 380 ml Balance 380 ml Intake Oral 380 ml # Voids 2 Height (Feet): 5 Height (Inches): 6.00 Weight (Pounds): 121 General Appearance: WD/WN EENT: PERRL/EOMI Neck: non-tender Cardiovascular: normal rate Respiratory/Chest: lungs clear Edema: trace edema Neurologic: environmental lead II-XII grossly normal Galo Wallis MD Jan 01, 2019 11:07
--- NOTE | 2019-01-01 14:02 | NUR ---
RD ASSESSMENT & RECOMMENDATIONS SEE CARE ACTIVITY FOR COMPLETE ASSESSMENT DAILY ESTIMATED NEEDS: Needs based on cardiac/ 56kg 25-30 kcals/kg 4479-1741 total kcals 1-1.5 g protein/kg 56-84 g total protein 25-30 mL/kg 2754-7195 total fluid mLs NUTRITION DIAGNOSIS: Increased kcal/prot intake needs R/T wt loss as evidenced by pt w/ possible significant wt loss of 23lbs/17.5% in 4 months, poor PO intake upon adm, now w/ irregular/ variable intake CURRENT DIET:REGULAR + Ensure Enlive TID w/ meals PO DIET RECOMMENDATIONS: Maintain liberalized REGULAR diet + continue Ensure Enlive TID w/ meals ADDITIONAL RECOMMENDATIONS: * Calibrated bedscale wt on 12/26=56.4kg (124lbs) -> rec weekly wt monitoring given h/o possible wt loss, poor PO * Updated CBC and BMP as able - refusing blood draws * Vit D 1000 IU daily (low Vit D25=29) * Consider additional appetite stimulant (on Remeron at this time) -> poor meal intake again, also w/ decreased Ensure intake * Consider psych re-eval: last seen 12/18, zyprexa last given 12/11, pt appears to be less interactive, decreased appetite
--- NOTE | 2019-01-01 15:12 | NUR ---
Discharge Planning Rylie @ [facility] explains they do not have a halfway bed. Placement, [facility] ([phone]) is looking for bed for patient (limited options due to low income). This SW spoke with Madhavi @ [facility] ([phone]) can accept this type of patient, but no open bed at this time.
[2019-01-01 16:00] VITALS: BP 129/80
--- NOTE | 2019-01-01 17:15 | NUR ---
NURSE NOTES: Patient encouraged to eat dinner. Patient did not eat much dinner but stated that he was full and did not want any more. Will continue to encourage PO intake.
--- NOTE | 2019-01-01 18:03 | Hematology/Onc Progress Note ---
Assessment/Plan Assessment/Plan # Anemia of chronic disease due to underlying chronic medical issues, multifactorial --> Anemia workup has been reviewed. Ferritin 83, TIBC 242 --> No evidence of hemolysis is noted, peripheral smear has been reviewed. --> Hgb goal >7. Transfuse prn. --> Epogen or iron at this time is not particularly indicated --> Medications have been reviewed --> hgb trend 14.1-->12.5--> 12.3-->11-->11.2-->10 --> still has been refusing labs AGAIN and AGAIN # Thrombocytopenia - potential causes multifactorial, evaluate liver and viral etiologies to begin, also could be related to underlying medications patient has received. --> Hep panel and HIV on PRIOR admission was negative --> US abd negative for cirrhosis and hsm --> Peripheral smear ordered to evaluate for blasts/schistocytes, none noted --> abx and other meds have been reviewed (one contributor could be depakote) --> ok for ppx if plt >50k w/ either heparin or lovenox --> Plt trend 118-->169k-->187k--> 102K->133k-->154k-->182k # FTT with decreased bmi on admission --> began on mirtazapine, to continue at this time --> daily weight and monitor # Atelectasis, optimize pulmonary hygiene/mobilize as tolerated --> on cxr appears stable --> per pulm recs # Paroxysmal AFib, per cardiology recs--> on noac --> on eliquis (ok to continue) # Hypertension --> controlled, sbp goal <140 --> as per cards # Hypothyroidism --> Synthroid po to continue # Lactic acidosis --> has resolved # MACARENA which has resolved --> per renal care # Placement pending --> rehab, and pt/ot -> difficult with placement with insurance --> daily dw cms The timing of this note does not necessarily reflect the time of the patient was seen. Greatly appreciate consultation! Subjective Gastrointestinal/Abdominal: Denies: no symptoms, abdomen distended, abdominal pain, black stools, tarry stools, blood in stool, constipated, diarrhea, difficulty swallowing, nausea, poor appetite, poor fluid intake, rectal bleeding , vomiting, other Genitourinary: Denies: no symptoms, burning, discharge, frequency, flank pain, hematuria, incontinence, pain, urgency, other Neurologic/Psychiatric: Denies: no symptoms, anxiety, depressed, emotional problems, headache, numbness, paresthesia, pre-existing deficit, seizure, tingling, tremors, weakness, other Endocrine: Denies: no symptoms, excessive sweating, flushing, intolerance to cold, intolerance to heat, increased hunger, increased thirst, increased urine, unexplained weight gain, unexplained weight loss, other Allergies: Coded Allergies: RISPERIDONE (Unverified Allergy, Unknown, 07/04/18) ZIPRASIDONE (Verified Allergy, Unknown, 06/30/18) Subjective 11/06: Pt resting in bed. No acute distress. DC planning. 11/08: Pt asleep in bed. No acute events. 11/10: Pt stable, no signs of acute distress or SOB. Venous duplex negative. 11/11: Pt resting in bed. Afebrile, no sob. MRI brain pending. 11/12: Pt in bed, sleeping. No respiratory distress noted. DC planning. 11/13: Pt awake and alert, refused morning meds. No signs of SOB or pain observed. Plt count significantly improved overnight. 11/15: Pt denies pain, no complaints of dyspnea 11/17: Pt resting in bed no chest pain or dyspnea, no other complaints 11/18: unable to place picc given do not have consent 11/20: no acute events reported. 11/21: pt refused am labs as well as am meds. h/h stable from prior labs. 11/22: pt no acute distress. Afebrile, VS reviewed. 11/23: no events reported, no f/c noted 11/24: refusing to participate in exam, labs have been reviewed 11/25: eating ensure this am, discharge planning pending, dw CM 11/26: on noac, continues, no bleeding, hgb is 11.2 11/27: refusing labs this am, discussed with him importance 11/28: resting comfortably, no acute events, no bleeding reported, no night sweats 11/29: no events, no bleeding reported, no night sweats 11/30: no events, no bleeding, no chills, no major night sweats 12/01: getting rehab, pt/ot as needed, no f/c 12/02: walking around the priest with a FWW, says feeling better 12/03: given ativan overnight, feeling better 12/04: awake and alert, no acute events, placement pending 12/05: awake and alert, resting in bed, no acute events. 12/06: anxious and aggravated, vs stable, placement pending per welfare case worker 12/07: no events to report, no f/c, no night sweats refusing po, will start on mirtazpine 12/08: no events noted, no f/c, no night sweats, no bleeding noted 12/09: no events, eating breakfast, cbc again reordered 12/10: no fevers or chills noted, no bleeding, no events, pending placement 12/11: walking around in hallway, no complaints, eating 12/12: labs reviewed, cbc still refusing in the am 12/13: asleep, still refusing labs, no fc 12/14: no events noted, no bleeding, no fc 12/15: not agitated, sinemet has been started per neuro 12/16: dc when public guardian raises money 12/17: dc planning as early as today, alert no complaints this am 12/18: no f/c, no night sweats, no bleeding noted 12/20: is on eliquis, sleeping, i woke him up, again refusing cbc 12/21: no bleeding, no chill, no night sweats, examined with rn, refusing to be seen 12/22: no events to report, no bleeding, no f/c 12/23: on eliquis, has been refusing POs, refusing exam too 12/24: sleeping, arousable, no major events 12/25: no events no bleeding, no chills noted, refusing again exam, and labs 12/27: pending placement, no new recs, no f/c noted, no bleeding 12/28: no fevers or chills noted, no bleeding, still refusing lab draws 12/29: recommended he have labs drawn, he refused 12/30: sergio again reordered labs, he says wont do them 12/31: pending placement, no f/c, no night sweats, dw cm 01/01: no events, no bleeding, sleeping comfortably in bed Objective Objective Current Medications Medications (Trade) Dose Ordered Sig/Eduardo Route PRN Reason Start Time Stop Time Status Last Admin Dose Admin Apixaban (Eliquis) 5 mg BID ORAL 12/05/18 15:00 01/04/19 14:59 01/01/19 17:51 Diltiazem HCl (Cardizem CD) 120 mg DAILY ORAL 12/28/18 09:00 01/27/19 08:59 01/01/19 09:04 Mirtazapine (Remeron) 7.5 mg BEDTIME ORAL 12/07/18 21:00 01/06/19 20:59 12/31/18 20:52 Last 24 Hour Vital Signs Date Time Temp Pulse Resp B/P (MAP) Pulse Ox O2 Delivery O2 Flow Rate FiO2 01/01/19 16:00 98.1 61 17 129/80 (96) 98 01/01/19 09:04 73 110/85 01/01/19 09:00 Room Air 01/01/19 08:00 98.1 73 18 110/85 (93) 99 01/01/19 00:00 97.8 67 15 120/77 (91) 100 12/31/18 21:00 Room Air 12/31/18 16:00 98.5 73 20 140/83 (102) 99 12/31/18 12:00 98.3 77 20 107/3 (37) 97 12/31/18 10:13 75 112/76 12/31/18 09:00 Room Air 12/31/18 08:00 97.7 75 21 112/76 (88) 99 12/30/18 20:00 98.3 72 16 140/83 (102) 99 Intake and Output 12/31/18 01/01/19 19:00 07:00 Intake Total 380 ml Balance 380 ml Intake Oral 380 ml # Voids 2 Height (Feet): 5 Height (Inches): 6.00 Weight (Pounds): 121 Objective PE: VITAL SIGNS: Have been reviewed. CHEST: Clear to auscultation. CV: Regular rate and rhythm. No murmurs or extra sounds. GASTROINTESTINAL: Soft, nontender, and nondistended. No organomegaly. EXTREMITIES: No edema. Moves all four extremities. NEUROLOGIC: Sensory intact to light touch. Reflexes are equal on both sides. Bennie Goss MD Jan 01, 2019 18:03
--- NOTE | 2019-01-01 19:21 | NUR ---
HAND-OFF: Report given to Margie JARAMILLO. Patient is stable.
--- NOTE | 2019-01-01 19:30 | NUR ---
NURSE NOTES: Received report & pt from ELLA Sams. Pt lying in bed, a&ox3, in room air. No s/s of acute distress & no c/o pain at this time. No IV access noted. Bed in lowest position, call light within reach. Will continue to monitor.
[2019-01-01 20:00] VITALS: BP 125/78
--- NOTE | 2019-01-01 22:30 | Neurology Progress Note ---
Interim History Interim History ROS Limited/Unobtainable: No Complaints: Pre-syncope Events: no changes Review of Systems Neuro Review of Systems ambulating All Systems: reviewed and negative except above Objective Physical Exam Last Vital Signs Date Time Temp Pulse Resp B/P (MAP) Pulse Ox O2 Delivery O2 Flow Rate FiO2 01/01/19 20:00 98.1 74 17 125/78 (94) 97 01/01/19 09:00 Room Air General: well developed, well nourished Head: normocophalic Neck: no rigidity EENT: benign Neurologic Exam Mental Status: awake, alert, oriented x4, normal cognition, good mathematical skills, normal recent memory, normal remote memory, preserved visuospatial function Speech: normal speech, no dysarthia Language: normal language, no aphasia Cranial Nerve II: fundus normal, visual francis, no papilledema Cranial Nerves III, IV, : PERRLA, EOMI, pupils Cranial Nerve V: normal facial sensations, temporales function normal, masseters function normal, pterygoids function normal Cranial Nerve VII: no facial asymmetry, normal facial expressions Cranial Nerve VIII: normal hearing, no nystagmus Cranial Nerve IX: normal palate elevation, gag response Cranial Nerve X: no voice hoarseness Cranial Nerve XI: SCM symmetric, trapezii function normal Cranial Nerve XII: tongue midline, no tongue atrophy/fasciculations Motor System: normal muscle tone, strength 5/5, no involuntary movement, no muscle wasting Sensory: normal pinprick, normal light touch, normal position sense, normal graphesthesia Coordination: normal finger to nose bilaterally, normal heel to ramsay bilaterally, negative Romberg test Deep Tendon Reflexes: 2+ bicep (L), 2+ bicep (R), 2+ tricep (L), 2+ tricep (R) , 2+ brachioradialis (L), 2+ brachioradialis (R), 2+ knee (L), 2+ knee (R), 2+ ankle (L), 2+ ankle (R) Stance: normal Gait: stable, normal regular, heel + toe gait Impression/Recommendations Problems: (1) Anemia (2) Pre-syncope (3) Hyponatremia (4) Dehydration (5) Syncope (6) Parkinsonism (7) HTN (hypertension) (8) Hypothyroid (9) Atrial fibrillation Status: stable, unchanged Diagnostic Impression Parkinsonism stable - trail of sinemet as outpatient once metabolic abnormalities resolve PT OT Cont NOAC will benefit from rehab placement Serjio Sharpe MD Jan 01, 2019 22:29
--- NOTE | 2019-01-02 07:23 | NUR ---
HAND-OFF: Report given to ELLA Magallon/Harika Carter RN. Rounds done pt in stable condition.
--- NOTE | 2019-01-02 07:24 | NUR ---
NURSE NOTES: Received patient in bed, awake, able to make needs known.Not in respiratory/cardiac distress. Denies any pain or discomfort. No IV. Per rn night, MD aware. Bed is in lowest position and locked. Bed alarm is on. Call light within reach.Board was updated. Reminded patient to call nurses if needed. Will continue plan of care.
[2019-01-02 08:00] VITALS: BP 122/84
[2019-01-02] MEDS: dilTIAZem HCl CD 120mg cap ORAL SCH (08:39)
[2019-01-02] MEDS: Eliquis 5mg tablet ORAL SCH ×2 (08:40→17:19)
[2019-01-02 12:00] VITALS: BP 110/80
--- NOTE | 2019-01-02 15:13 | General Progress Note ---
Assessment/Plan Status: stable, unchanged Assessment/Plan: 63 y/o man with hx of paroxysmal atrial fibrillation, presented to the hospital with pre-syncope, found to have rapid atrial fibrillation. # Hypotension - lisinopril stopped - Monitor BP - stable #Paroxysmal Atrial Fibrillation #Atrial fibrillation with RVR - Cont beta zack and Diltiazem for rate control - holding parameters. - Cont NOAC.. - echo did not show any remarkable changes - Apprec cardiology recs #Anemia due to chronic illness #Thrombocytopenia - Hgb and platelet count appeared to be at baseline, seen by Hematology, no new changes recommended. #unstable gait -continue PT - PATIENT WILL NEED TO BE WITHOUT FWW in order to return to his [facility]. Recommend DC to assisted living facility at [place] per PT final report. Otherwise, will need new placement. media analytics manager follow up is needed. WENDY note for conservator reviewed. #Behavorial disorder -psych meds restarted -psychiatry consulted # Disposition Difficult placement. Per patient case manager no insurance available. [facility]. Need to continue efforts by CM and SW to place. WENDY spoke with Daily Sequeira [phone] who states Veronica spoke with SSI and patient' s SSI will be reinstated December 17. WENDY inquired about placement. Daily indicted she will contact various board and cares but could not guarantee she would locate placement due to patient currently not having income. ( PER DISCUSSION WITH RN, CURRENT CONSERVATOR MANAGES THE PATIENT'S MONEY) WENDY updated CM. Will continue to follow up. Medically stable for discharge when placement is approved. Subjective Date patient seen: Jan 02, 2019 Allergies: Coded Allergies: RISPERIDONE (Unverified Allergy, Unknown, 07/04/18) ZIPRASIDONE (Verified Allergy, Unknown, 06/30/18) Subjective AVSS Objective Last 24 Hour Vital Signs Date Time Temp Pulse Resp B/P (MAP) Pulse Ox O2 Delivery O2 Flow Rate FiO2 01/02/19 12:00 98.2 73 18 110/80 (90) 98 01/02/19 09:00 Room Air 01/02/19 08:39 63 122/84 01/02/19 08:00 97.7 63 17 122/84 (97) 01/01/19 21:00 Room Air 01/01/19 20:00 98.1 74 17 125/78 (94) 97 8/16/19 16:00 98.1 61 17 129/80 (96) 98 Intake and Output 01/01/19 01/02/19 18:59 06:59 Intake Total 500 ml 360 ml Balance 500 ml 360 ml Intake Oral 500 ml 360 ml # Voids 1 1 Height (Feet): 5 Height (Inches): 6.00 Weight (Pounds): 121 Objective General Appearance: WD/WN EENT: PERRL/EOMI Neck: non-tender Cardiovascular: normal rate Respiratory/Chest: lungs clear Edema: trace edema Neurologic: dock grader II-XII grossly normal Adam Fleming MD Jan 02, 2019 15:13
[2019-01-02 16:00] VITALS: BP 117/85
--- NOTE | 2019-01-02 19:00 | NUR ---
NURSE NOTES: RESTING. IN NO DISTRESS.
--- NOTE | 2019-01-02 19:30 | NUR ---
NURSE NOTES: Receive a report from ELLA Magallon. Round is done. Pt is lying in bed and awake. Breathing is even and non labored. No acute distress noted. No dizziness noted. Bed is locked and lowest. Call light within reach. Provide fall precautions all the time. Will continue to monitor.
--- NOTE | 2019-01-02 19:35 | NUR ---
HAND-OFF: Report given to o.
[2019-01-02 20:00] VITALS: BP 135/92
--- NOTE | 2019-01-02 22:17 | Neurology Progress Note ---
Interim History Interim History ROS Limited/Unobtainable: No Complaints: Pre-syncope Events: no changes Interim History no new deficits Review of Systems All Systems: reviewed and negative except above Objective Physical Exam Last Vital Signs Date Time Temp Pulse Resp B/P (MAP) Pulse Ox O2 Delivery O2 Flow Rate FiO2 01/02/19 21:00 Room Air 01/02/19 20:00 98.4 73 18 135/92 (106) 99 General: well developed, well nourished Head: normocophalic Neck: no rigidity EENT: benign Neurologic Exam Mental Status: awake, alert, oriented x4, normal cognition, good mathematical skills, normal recent memory, normal remote memory, preserved visuospatial function Speech: normal speech, no dysarthia Language: normal language, no aphasia Cranial Nerve II: fundus normal, visual francis, no papilledema Cranial Nerves III, IV, : PERRLA, EOMI, pupils Cranial Nerve V: normal facial sensations, temporales function normal, masseters function normal, pterygoids function normal Cranial Nerve VII: no facial asymmetry, normal facial expressions Cranial Nerve VIII: normal hearing, no nystagmus Cranial Nerve IX: normal palate elevation, gag response Cranial Nerve X: no voice hoarseness Cranial Nerve XI: SCM symmetric, trapezii function normal Cranial Nerve XII: tongue midline, no tongue atrophy/fasciculations Motor System: normal muscle tone, strength 5/5, no involuntary movement, no muscle wasting Sensory: normal pinprick, normal light touch, normal position sense, normal graphesthesia Coordination: normal finger to nose bilaterally, normal heel to ramsay bilaterally, negative Romberg test Deep Tendon Reflexes: 2+ bicep (L), 2+ bicep (R), 2+ tricep (L), 2+ tricep (R) , 2+ brachioradialis (L), 2+ brachioradialis (R), 2+ knee (L), 2+ knee (R), 2+ ankle (L), 2+ ankle (R) Stance: normal Gait: stable, normal regular, heel + toe gait Impression/Recommendations Problems: (1) Anemia (2) Pre-syncope (3) Hyponatremia (4) Dehydration (5) Syncope (6) Parkinsonism (7) HTN (hypertension) (8) Hypothyroid (9) Atrial fibrillation Status: stable, unchanged Diagnostic Impression Parkinsonism stable - trail of sinemet as outpatient once metabolic abnormalities resolve PT OT Cont NOAC will benefit from rehab placement Serjio Sharpe MD Jan 02, 2019 22:17
--- NOTE | 2019-01-02 22:35 | NUR ---
NURSE NOTES: Pt is sitting on the chair outside of pt's room, hallway and starts to seizure with loss of consciousness. Supporting pt from injury and moved to pt's bed while calling for Rapid Response Team. LABEL TACKER members arrived and started monitoring. Seizure stops and pt answers questions but does not recall. Denies any pain/ chest pain or dyspnea. HR noted 120bmp to 140bmp. Spo2 98% in RA. Call Dr. Sargent's office.
--- NOTE | 2019-01-02 22:45 | NUR ---
NURSE NOTES: Received a call from on-call Mayank Ceabllos. Notify pt's change of conditions. Receive orders of Ativan 1mg IVS q 4hrs for seizure prn and check EKG. Order noted and carried out. Pt is on EKG monitoring. Continue to monitor.
[2019-01-02] MEDS ORDERED: LORazepam Inj 2mg/ml 1ml IV PRN (23:00)
--- NOTE | 2019-01-02 23:10 | NUR ---
NURSE NOTES: Pt is awake and denies any discomfort. Still noted tachycardia as 120-140 bmp. EKG is done and result shows Atrial Fibrillation with rapid ventricular response. Given prn Ativan 1mg IVS. Call to 's office and notify Dr. Ta about EKG result. Receive orders of Metoprolol 5mg IV in piggy bag once and transfer to Telemetry for monitor. Order noted and carried out. Side rails are on both sides. No noted seizure. Will continue to monitor.
[2019-01-02] MEDS ORDERED: Metoprolol Tartrate 5 MG in D5W 55 ML IVPB ONE (23:15)
[2019-01-03] VITALS (8 sets, daily range): BP systolic 104–155; BP diastolic 72–108
--- NOTE | 2019-01-03 01:00 | NUR ---
NURSE NOTES: Transferred patient from med surg 310-1 to telemetry 210-1 due to change in patient condition. Patient had a seizure and went into afib with rvr. Patient transferred in hospital bed. Suction equipment present, padding on side rails. Patient awake, alert and responsive, oriented x 2, able to move all extremities. Patient denies pain, palpitations, chest pain. Bed locked in low position, bed alarm on, call light within reach.
--- NOTE | 2019-01-03 01:00 | NUR ---
NURSE NOTES: Pt is awake and alert with forgetfulness. Transfer to 210-1 via bed with all pt's belongings and chart. Given a report for ELLA Tanner.
--- NOTE | 2019-01-03 01:20 | NUR ---
NURSE NOTES: Vitals: 99.1 oral, 120 apical pulse, resp 16, bp 158/108, 97% on room air.
--- NOTE | 2019-01-03 01:24 | NUR ---
NURSE NOTES: Metoprolol 5mg in D5W 55ml IVPB started at 130ml/hr. Patient on customer solutions coordinator, still showing irregular afib.
--- NOTE | 2019-01-03 01:55 | NUR ---
NURSE NOTES: Left a message to Fabby Ambrosio for updating pt's change of conditions and called emergency lines but unable to reach at this time.
--- NOTE | 2019-01-03 02:20 | NUR ---
NURSE NOTES: BP 134/96, Apical pulse 98, 96% RA. Patient still awake, denies pain. States "I feel great."
--- NOTE | 2019-01-03 07:36 | NUR ---
NURSE NOTES: Received report from ELLA Tanner. Patient in bed resting, no active s/s cardiac, respiratory distress noticed at this time. Patient AOx2, on room air, denies pain at this time. A.fib with HR 99 at this time. IV on right AC 22G, asymptomatic, patent, intact. Endorsed patient transferred from [facility] to [facility] due to seizure activity. No seizure activity at this time. Bed in lowest position, side rails padded up x3, call light within reach. Will continue to monitor.
[2019-01-03] MEDS: dilTIAZem HCl CD 120mg cap ORAL SCH (08:54)
[2019-01-03] MEDS: Eliquis 5mg tablet ORAL SCH ×2 (08:54→18:12)
--- NOTE | 2019-01-03 16:25 | General Progress Note ---
Assessment/Plan Status: stable, unchanged Assessment/Plan: 63 y/o man with hx of paroxysmal atrial fibrillation, presented to the hospital with pre-syncope, found to have rapid atrial fibrillation. # Hypotension - lisinopril stopped - Monitor BP - stable #Paroxysmal Atrial Fibrillation #Atrial fibrillation with RVR - Cont beta zack and Diltiazem for rate control - holding parameters. - Cont NOAC.. - echo did not show any remarkable changes - Apprec cardiology recs #Anemia due to chronic illness #Thrombocytopenia - Hgb and platelet count appeared to be at baseline, seen by Hematology, no new changes recommended. #unstable gait -continue PT - PATIENT WILL NEED TO BE WITHOUT FWW in order to return to his [facility]. Recommend DC to assisted living facility at DC per PT final report. Otherwise, will need new placement. workforce manager follow up is needed. WENDY note for conservator reviewed. #Behavorial disorder -psych meds restarted -psychiatry consulted # Disposition Difficult placement. Per oil field caser no insurance available. [facility] Need to continue efforts by CM and SW to place. WENDY spoke with Daily Sequeira [phone] who states Veronica spoke with SSI and patient' s SSI will be reinstated December 17. WENDY inquired about placement. Daily indicted she will contact various board and cares but could not guarantee she would locate placement due to patient currently not having income. ( PER DISCUSSION WITH RN, CURRENT CONSERVATOR MANAGES THE PATIENT'S MONEY) WENDY updated CM. Will continue to follow up. Medically stable for discharge when placement is approved. The time of this note may not reflect the time of the clinical encounter. Subjective Date patient seen: Jan 03, 2019 Allergies: Coded Allergies: RISPERIDONE (Unverified Allergy, Unknown, 07/04/18) ZIPRASIDONE (Verified Allergy, Unknown, 06/30/18) Subjective AVSS No new complaints Objective Last 24 Hour Vital Signs Date Time Temp Pulse Resp B/P (MAP) Pulse Ox O2 Delivery O2 Flow Rate FiO2 01/03/19 12:00 67 01/03/19 12:00 97.7 75 18 117/78 (91) 99 75 01/03/19 09:00 Room Air 01/03/19 08:54 77 111/75 01/03/19 08:00 98.1 77 18 111/75 (87) 98 77 01/03/19 08:00 83 01/03/19 04:00 99 01/03/19 03:58 99.1 68 18 130/79 (96) 97 99 01/03/19 02:20 98 16 134/96 (109) 98 01/03/19 01:24 120 158/108 01/03/19 01:20 99.1 120 16 155/108 (124) 97 01/03/19 01:02 103 01/03/19 00:00 98.4 116 18 154/108 (123) 97 01/02/19 21:00 Room Air 01/02/19 20:00 98.4 73 18 135/92 (106) 99 Intake and Output 01/02/19 01/03/19 19:00 07:00 Intake Total 300 ml Balance 300 ml Intake Oral 300 ml # Voids 1 Height (Feet): 5 Height (Inches): 6.00 Weight (Pounds): 121 Objective General Appearance: WD/WN EENT: PERRL/EOMI Neck: non-tender Cardiovascular: normal rate Respiratory/Chest: lungs clear Edema: trace edema 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
--- NOTE | 2019-01-03 19:37 | NUR ---
HAND-OFF: Report given to ELLA Abarca.
--- NOTE | 2019-01-03 20:16 | NUR ---
NURSE NOTES: RECEIVED PATIENT RESTING IN BED, NO COMPLAINTS OF PAIN AT THIS TIME. FALL AND SEIZURE PRECAUTIONS IN PLACE: CALL LIGHT, BEDSIDE TABLE AND URINAL WITHIN REACH, BED IN LOW POSITION AND BED ALARM ON, SIDE RAILS PADDED. PLAN OF CARE REVIEWED.
[2019-01-04] VITALS: BP 133/85
[2019-01-04 04:00] VITALS: BP 109/69
--- NOTE | 2019-01-04 07:23 | NUR ---
HAND-OFF: Report given to Celeste CATALAN RN. PATIENT ASLEEP, NO SIGNS OF DISTRESS OR SEIZURE NOTED.
--- NOTE | 2019-01-04 07:51 | NUR ---
NURSE NOTES: Received report from ELLA Abarca. Patient in bed resting, no active s/s cardiac, respiratory distress noticed at this time. Patient AOx2, sleeping, easy to wake up. SR with HR 75, on room air. Endorsed no seizure activity last night. IV on right AC 22G, asymptomatic, patent, intact. Bed in lowest position, side rails upx2, call light within reach. Will continue to monitor.
[2019-01-04 08:00] VITALS: BP 142/86
[2019-01-04] MEDS: Eliquis 5mg tablet ORAL SCH ×2 (09:00→18:02)
[2019-01-04] MEDS: dilTIAZem HCl CD 120mg cap ORAL SCH (09:00)
--- NOTE | 2019-01-04 09:51 | NUR ---
CASE MANAGEMENT:REVIEW 01/03/19 SI: HYPOTENSION. AFIB W/RVR 99.1 120 16 104/72 97% ON RA IS: CARDIZEM PO QD ELIQUIS PO BID REMERON PO QHS : TRANSFERRED FROM MED/SURG TO TELEMETRY 01/04/19 SI; HYPOTENSION. AFIB W/RVR 97.6 66 19 109/69 98% ON RA IS: CARDIZEM PO QD ELIQUIS PO BID REMERON PO QHS : TRANSFERRED FROM MED/SURG TO TELEMETRY
--- NOTE | 2019-01-04 09:59 | NUR ---
DISCHARGE PLANNING 1) CALLED PATIENT'S [facility] PUBLIC GUARDIAN ~ ISRAEL SESAY T: [phone] PER ISRAEL, SHE HAS USED ALL OF HER RESOURCES AND HAS NOT BEEN ABLE TO FIND PLACEMENT FOR THIS PATIENT PER ISRAEL PATIENT RECEIVES $1169/MO IN SSI AND HIS MCAL HAS BEEN REINSTATED #[id number] 2)CALLED [place] [facility] CHANTALE T: [phone] CHANTALE SUGGESTED REFERRING PATIENT TO [place] [facility]. HE WILL CALL BACK AROUND NOON WITH THE PHONE AND FAX NUMBERS 3) CALLED LITHOGRAPHIC PRESS OPERATOR ~ JAN T: [phone]...LEFT A VOICE MAIL MESSAGE Addendum: 01/04/19 at 1632 by STEPHEN FLOWERS LVN LVN LEFT ASHLYN KENYON REGARDING LIST HE WAS GOING TO FAX THAT I NEVER RECEIVED
--- NOTE | 2019-01-04 10:40 | General Progress Note ---
Assessment/Plan Status: stable, unchanged Assessment/Plan: 63 y/o man with hx of paroxysmal atrial fibrillation, presented to the hospital with pre-syncope, found to have rapid atrial fibrillation now pending placement # Disposition - notes reviewed, still pending placement Difficult placement. Per embedded case manager no insurance available. [facility]. Need to continue efforts by CM and SW to place. SW spoke with Daily Sequeira [phone] who states Veronica spoke with SSI and patient' s SSI will be reinstated December 17. WENDY inquired about placement. Daily indicted she will contact various board and cares but could not guarantee she would locate placement due to patient currently not having income. ( PER DISCUSSION WITH RN, CURRENT CONSERVATOR MANAGES THE PATIENT'S MONEY) SW updated CM. Will continue to follow up. # Hypotension- resolved - Monitor BP #Paroxysmal Atrial Fibrillation #Atrial fibrillation with RVR, controlled - Cont beta zack and Diltiazem for rate control - holding parameters. - Cont NOAC.. - echo did not show any remarkable changes - Apprec cardiology recs #Anemia due to chronic illness #Thrombocytopenia - Hgb and platelet count appeared to be at baseline, seen by Hematology, no new changes recommended. Labs stable. #unstable gait -continue PT - PATIENT WILL NEED TO BE WITHOUT FWW in order to return to his [facility]. Recommend DC to assisted living facility at [place] per PT final report. Otherwise, will need new placement. automotive finance manager follow up is needed. SW note for conservator reviewed. I DO NOT UNDERSTAND WHY THE CONSERVATOR REFUSED TO PLACE THE PATIENT BACK TO HIS CORRECTION - per discussion with RN. NEED TO HAVE SW follow up on this DAVID. ? Formal complain for conservator and request new conservator vs other legal action. #Behavorial disorder -psych meds restarted -psychiatry consulted Medically stable for discharge when placement is approved. Time of note may not reflect my encounter Subjective Date patient seen: Jan 04, 2019 Time patient seen: 09:00 Allergies: Coded Allergies: RISPERIDONE (Unverified Allergy, Unknown, 07/04/18) ZIPRASIDONE (Verified Allergy, Unknown, 06/30/18) Subjective no seizures doing well nad vss Objective Last 24 Hour Vital Signs Date Time Temp Pulse Resp B/P (MAP) Pulse Ox O2 Delivery O2 Flow Rate FiO2 01/04/19 09:00 71 142/86 01/04/19 04:00 66 01/04/19 04:00 97.6 66 19 109/69 (82) 98 75 01/04/19 00:00 65 01/04/19 00:00 98.5 66 133/85 (101) 98 75 01/03/19 21:00 Room Air 01/03/19 20:00 98.9 72 18 135/81 (99) 96 75 01/03/19 20:00 70 01/03/19 16:00 97.0 65 18 104/72 (83) 99 75 01/03/19 16:00 65 01/03/19 12:00 67 01/03/19 12:00 97.7 75 18 117/78 (91) 99 75 Intake and Output 01/03/19 01/04/19 19:00 07:00 Intake Total 120 ml 120 ml Balance 120 ml 120 ml Intake Oral 120 ml 120 ml # Voids 1 1 Height (Feet): 5 Height (Inches): 6.00 Weight (Pounds): 121 Objective GEN: WWN, NAD, Alert CV: RRR, no M, R, G, no jvd RESP: CTAB, no w/r/c ABD: normal bowel sounds, soft, non tender EXT: normal muscle tone, no tenderness NEURO: grossly normal, no tremors, a x o x 3 Oriana Jalloh DO Jan 04, 2019 10:40
--- NOTE | 2019-01-04 11:58 | Hematology/Onc Progress Note ---
Assessment/Plan Assessment/Plan # Anemia of chronic disease due to underlying chronic medical issues, multifactorial --> Anemia workup has been reviewed. Ferritin 83, TIBC 242 --> No evidence of hemolysis is noted, peripheral smear has been reviewed. --> Hgb goal >7. Transfuse prn. --> Epogen or iron at this time is not particularly indicated --> Medications have been reviewed --> hgb trend 14.1-->12.5--> 12.3-->11-->11.2-->10 --> still has been refusing labs AGAIN and AGAIN # Thrombocytopenia - potential causes multifactorial, evaluate liver and viral etiologies to begin, also could be related to underlying medications patient has received. --> Hep panel and HIV on PRIOR admission was negative --> US abd negative for cirrhosis and hsm --> Peripheral smear ordered to evaluate for blasts/schistocytes, none noted --> abx and other meds have been reviewed (one contributor could be depakote) --> ok for ppx if plt >50k w/ either heparin or lovenox --> Plt trend 118-->169k-->187k--> 102K->133k-->154k-->182k # FTT with decreased bmi on admission --> began on mirtazapine, to continue at this time --> daily weight and monitor # Atelectasis, optimize pulmonary hygiene/mobilize as tolerated --> on cxr appears stable --> per pulm recs # Paroxysmal AFib, per cardiology recs--> on noac --> on eliquis (ok to continue) # Hypertension --> controlled, sbp goal <140 --> as per cards # Hypothyroidism --> Synthroid po to continue # Lactic acidosis --> has resolved # MACARENA which has resolved --> per renal care # Placement pending --> rehab, and pt/ot -> difficult with placement with insurance --> daily dw cms The timing of this note does not necessarily reflect the time of the patient was seen. Greatly appreciate consultation! Subjective Hematologic/Lymphatic: Reports: anemia Allergies: Coded Allergies: RISPERIDONE (Unverified Allergy, Unknown, 07/04/18) ZIPRASIDONE (Verified Allergy, Unknown, 06/30/18) All Systems: reviewed and negative except above Subjective 11/06: Pt resting in bed. No acute distress. DC planning. 11/08: Pt asleep in bed. No acute events. 11/10: Pt stable, no signs of acute distress or SOB. Venous duplex negative. 11/11: Pt resting in bed. Afebrile, no sob. MRI brain pending. 11/12: Pt in bed, sleeping. No respiratory distress noted. DC planning. 11/13: Pt awake and alert, refused morning meds. No signs of SOB or pain observed. Plt count significantly improved overnight. 11/15: Pt denies pain, no complaints of dyspnea 11/17: Pt resting in bed no chest pain or dyspnea, no other complaints 11/18: unable to place picc given do not have consent 11/20: no acute events reported. 11/21: pt refused am labs as well as am meds. h/h stable from prior labs. 11/22: pt no acute distress. Afebrile, VS reviewed. 11/23: no events reported, no f/c noted 11/24: refusing to participate in exam, labs have been reviewed 11/25: eating ensure this am, discharge planning pending, dw CM 11/26: on noac, continues, no bleeding, hgb is 11.2 11/27: refusing labs this am, discussed with him importance 11/28: resting comfortably, no acute events, no bleeding reported, no night sweats 11/29: no events, no bleeding reported, no night sweats 11/30: no events, no bleeding, no chills, no major night sweats 12/01: getting rehab, pt/ot as needed, no f/c 12/02: walking around the priest with a FWW, says feeling better 12/03: given ativan overnight, feeling better 12/04: awake and alert, no acute events, placement pending 12/05: awake and alert, resting in bed, no acute events. 12/06: anxious and aggravated, vs stable, placement pending per adult protective caseworker 12/07: no events to report, no f/c, no night sweats refusing po, will start on mirtazpine 12/08: no events noted, no f/c, no night sweats, no bleeding noted 12/09: no events, eating breakfast, cbc again reordered 12/10: no fevers or chills noted, no bleeding, no events, pending placement 12/11: walking around in hallway, no complaints, eating 12/12: labs reviewed, cbc still refusing in the am 12/13: asleep, still refusing labs, no fc 12/14: no events noted, no bleeding, no fc 12/15: not agitated, sinemet has been started per neuro 12/16: dc when public guardian raises money 12/17: dc planning as early as today, alert no complaints this am 12/18: no f/c, no night sweats, no bleeding noted 12/20: is on eliquis, sleeping, i woke him up, again refusing cbc 12/21: no bleeding, no chill, no night sweats, examined with rn, refusing to be seen 12/22: no events to report, no bleeding, no f/c 12/23: on eliquis, has been refusing POs, refusing exam too 12/24: sleeping, arousable, no major events 12/25: no events no bleeding, no chills noted, refusing again exam, and labs 12/27: pending placement, no new recs, no f/c noted, no bleeding 12/28: no fevers or chills noted, no bleeding, still refusing lab draws 12/29: recommended he have labs drawn, he refused 12/30: sergio again reordered labs, he says wont do them 12/31: pending placement, no f/c, no night sweats, dw cm 01/01: no events, no bleeding, sleeping comfortably in bed 01/04: no overnight events, no seizures, pending placement Objective Objective Current Medications Medications (Trade) Dose Ordered Sig/Eduardo Route PRN Reason Start Time Stop Time Status Last Admin Dose Admin Apixaban (Eliquis) 5 mg BID ORAL 01/03/19 09:00 01/04/19 14:59 01/04/19 09:00 Diltiazem HCl (Cardizem CD) 120 mg DAILY ORAL 01/03/19 09:00 01/27/19 08:59 01/04/19 09:00 Lorazepam (Ativan 2mg/ml 1ml) 1 mg Q4H PRN IV For Anxiety 01/03/19 08:00 01/09/19 07:59 Mirtazapine (Remeron) 7.5 mg BEDTIME ORAL 01/03/19 21:00 01/06/19 20:59 01/03/19 20:37 Last 24 Hour Vital Signs Date Time Temp Pulse Resp B/P (MAP) Pulse Ox O2 Delivery O2 Flow Rate FiO2 01/04/19 09:00 Room Air 01/04/19 09:00 71 142/86 01/04/19 08:00 97.2 72 20 142/86 (104) 97 72 01/04/19 08:00 63 01/04/19 04:00 66 01/04/19 04:00 97.6 66 19 109/69 (82) 98 75 01/04/19 00:00 65 01/04/19 00:00 98.5 66 19 133/85 (101) 98 75 01/03/19 21:00 Room Air 01/03/19 20:00 98.9 72 18 135/81 (99) 96 75 01/03/19 20:00 70 01/03/19 16:00 97.0 65 18 104/72 (83) 99 75 01/03/19 16:00 65 01/03/19 12:00 67 01/03/19 12:00 97.7 75 18 117/78 (91) 99 75 01/03/19 09:00 Room Air 01/03/19 08:54 77 111/75 01/03/19 08:00 98.1 77 18 111/75 (87) 98 77 01/03/19 08:00 83 01/03/19 04:00 99 01/03/19 03:58 99.1 68 18 130/79 (96) 97 99 01/03/19 02:20 98 16 134/96 (109) 98 01/03/19 01:24 120 158/108 01/03/19 01:20 99.1 120 16 155/108 (124) 97 01/03/19 01:02 103 01/03/19 00:00 98.4 116 18 154/108 (123) 97 01/02/19 21:00 Room Air 01/02/19 20:00 98.4 73 18 135/92 (106) 99 01/02/19 16:00 98.0 81 17 117/85 (96) 98 01/02/19 12:00 98.2 73 18 110/80 (90) 98 Intake and Output 01/03/19 01/04/19 19:00 07:00 Intake Total 120 ml 120 ml Balance 120 ml 120 ml Intake Oral 120 ml 120 ml # Voids 1 1 Height (Feet): 5 Height (Inches): 6.00 Weight (Pounds): 121 Objective PE: VITAL SIGNS: Have been reviewed. CHEST: Clear to auscultation. CV: Regular rate and rhythm. No murmurs or extra sounds. GASTROINTESTINAL: Soft, nontender, and nondistended. No organomegaly. EXTREMITIES: No edema. Moves all four extremities. NEUROLOGIC: Sensory intact to light touch. Reflexes are equal on both sides. Bennie Goss MD Jan 04, 2019 11:58
[2019-01-04 12:00] VITALS: BP 137/89
[2019-01-04 16:00] VITALS: BP 133/80
--- NOTE | 2019-01-04 19:57 | NUR ---
HAND-OFF: Report given to ELLA Borrero.
[2019-01-04 20:00] VITALS: BP 140/78
--- NOTE | 2019-01-04 20:00 | NUR ---
NURSE NOTES: Received report from ELLA Osorio. Patient in bed resting, no active s/s cardiac, respiratory distress noticed at this time. Patient AOx2, sleeping, easy arousable, responsive. SR with HR 93, on room air. Endorsed no seizure activity last night. IV on right AC 22G, asymptomatic, patent, intact. Bed in lowest position, side rails upx2, call light within reach. Will continue to monitor.
[2019-01-05 00:17] VITALS: BP 120/87
[2019-01-05 04:00] VITALS: BP 147/63
[2019-01-05 08:00] VITALS: BP 142/76
--- NOTE | 2019-01-05 08:00 | NUR ---
HAND-OFF: Report given to ELLA Stephenson.
--- NOTE | 2019-01-05 08:08 | NUR ---
NURSE NOTES: pt. in bed talking. Iv patent no complains of discomfort, pt on log feeder no signs of cardiac or respiratory distress. Bed is locked and in lowest position. call light is within reach, bed side rails padded. Will continue plan of care. Pt waiting for placement.
[2019-01-05] MEDS: dilTIAZem HCl CD 120mg cap ORAL SCH (10:00)
[2019-01-05] MEDS: Eliquis 5mg tablet ORAL SCH ×2 (10:00→17:30)
--- NOTE | 2019-01-05 11:10 | Cardiology Report ---
APPROVED REPORT EKG Measurement Heart [id number] Atrial fibrillation with rapid ventricular response Nonspecific ST abnormality Abnormal ECG
[2019-01-05 12:00] VITALS: BP 130/95
--- NOTE | 2019-01-05 12:02 | NUR ---
RD ASSESSMENT & RECOMMENDATIONS SEE CARE ACTIVITY FOR COMPLETE ASSESSMENT DAILY ESTIMATED NEEDS: Needs based on cardiac/ 56kg 25-30 kcals/kg 7565-0360 total kcals 1-1.5 g protein/kg 56-84 g total protein 25-30 mL/kg 3782-3437 total fluid mLs NUTRITION DIAGNOSIS: Increased kcal/prot intake needs R/T wt loss as evidenced by pt w/ possible significant wt loss of 23lbs/17.5% in 4 months, poor PO intake upon adm, now w/ irregular/ variable intake CURRENT DIET:REGULAR + Ensure Enlive TID w/ meals PO DIET RECOMMENDATIONS: Maintain liberalized REGULAR diet + continue Ensure Enlive TID w/ meals ADDITIONAL RECOMMENDATIONS: * Calibrated bedscale wt on 12/26=56.4kg (124lbs) -> rec weekly wt monitoring given h/o possible wt loss, poor PO * Updated CBC and BMP as able - refusing blood draws * Vit D 1000 IU daily (low Vit D25=29) * Consider additional appetite stimulant (on Remeron at this time) -> poor meal intake again, also w/ decreased Ensure intake * Consider psych re-eval: last seen 12/18, zyprexa last given 12/11
[2019-01-05] MEDS ORDERED: OLANZapine 10mg tab ORAL SCH (12:45)
--- NOTE | 2019-01-05 13:37 | Hematology/Onc Progress Note ---
Assessment/Plan Assessment/Plan # Anemia of chronic disease due to underlying chronic medical issues, multifactorial --> Anemia workup has been reviewed. Ferritin 83, TIBC 242 --> No evidence of hemolysis is noted, peripheral smear has been reviewed. --> Hgb goal >7. Transfuse prn. --> Epogen or iron at this time is not particularly indicated --> Medications have been reviewed --> hgb trend 14.1-->12.5--> 12.3-->11-->11.2-->10 --> still has been refusing labs AGAIN and AGAIN # Thrombocytopenia - potential causes multifactorial, evaluate liver and viral etiologies to begin, also could be related to underlying medications patient has received. --> Hep panel and HIV on PRIOR admission was negative --> US abd negative for cirrhosis and hsm --> Peripheral smear ordered to evaluate for blasts/schistocytes, none noted --> abx and other meds have been reviewed (one contributor could be depakote) --> ok for ppx if plt >50k w/ either heparin or lovenox --> Plt trend 118-->169k-->187k--> 102K->133k-->154k-->182k # FTT with decreased bmi on admission --> began on mirtazapine, to continue at this time --> daily weight and monitor # Atelectasis, optimize pulmonary hygiene/mobilize as tolerated --> on cxr appears stable --> per pulm recs # Paroxysmal AFib, per cardiology recs--> on noac --> on eliquis (ok to continue) # Hypertension --> controlled, sbp goal <140 --> as per cards # Hypothyroidism --> Synthroid po to continue # Lactic acidosis --> has resolved # MACARENA which has resolved --> per renal care # Placement pending --> rehab, and pt/ot -> difficult with placement with insurance --> daily dw cms The timing of this note does not necessarily reflect the time of the patient was seen. Greatly appreciate consultation! Subjective Constitutional: Denies: no symptoms, chills, fever, malaise, weakness, other HEENT: Denies: no symptoms, eye pain, blurred vision, tearing, double vision, ear pain, ear discharge, nose pain, nose congestion, throat pain, throat swelling, mouth pain, mouth swelling, other Cardiovascular: Denies: no symptoms, chest pain, edema, irregular heart rate, lightheadedness, palpitations, syncope, other Respiratory: Denies: no symptoms, cough, shortness of breath, SOB with excertion, SOB at rest, sputum, wheezing, other Genitourinary: Denies: no symptoms, burning, discharge, frequency, flank pain, hematuria, incontinence, pain, urgency, other Neurologic/Psychiatric: Denies: no symptoms, anxiety, depressed, emotional problems, headache, numbness, paresthesia, pre-existing deficit, seizure, tingling, tremors, weakness, other Allergies: Coded Allergies: RISPERIDONE (Unverified Allergy, Unknown, 07/04/18) ZIPRASIDONE (Verified Allergy, Unknown, 06/30/18) Subjective 11/06: Pt resting in bed. No acute distress. DC planning. 11/08: Pt asleep in bed. No acute events. 11/10: Pt stable, no signs of acute distress or SOB. Venous duplex negative. 11/11: Pt resting in bed. Afebrile, no sob. MRI brain pending. 11/12: Pt in bed, sleeping. No respiratory distress noted. DC planning. 11/13: Pt awake and alert, refused morning meds. No signs of SOB or pain observed. Plt count significantly improved overnight. 11/15: Pt denies pain, no complaints of dyspnea 11/17: Pt resting in bed no chest pain or dyspnea, no other complaints 11/18: unable to place picc given do not have consent 11/20: no acute events reported. 11/21: pt refused am labs as well as am meds. h/h stable from prior labs. 11/22: pt no acute distress. Afebrile, VS reviewed. 11/23: no events reported, no f/c noted 11/24: refusing to participate in exam, labs have been reviewed 11/25: eating ensure this am, discharge planning pending, deandre FERRARI 11/26: on noac, continues, no bleeding, hgb is 11.2 11/27: refusing labs this am, discussed with him importance 11/28: resting comfortably, no acute events, no bleeding reported, no night sweats 11/29: no events, no bleeding reported, no night sweats 11/30: no events, no bleeding, no chills, no major night sweats 12/01: getting rehab, pt/ot as needed, no f/c 12/02: walking around the priest with a FWW, says feeling better 12/03: given ativan overnight, feeling better 12/04: awake and alert, no acute events, placement pending 12/05: awake and alert, resting in bed, no acute events. 12/06: anxious and aggravated, vs stable, placement pending per clinical case manager 12/07: no events to report, no f/c, no night sweats refusing po, will start on mirtazpine 12/08: no events noted, no f/c, no night sweats, no bleeding noted 12/09: no events, eating breakfast, cbc again reordered 12/10: no fevers or chills noted, no bleeding, no events, pending placement 12/11: walking around in hallway, no complaints, eating 12/12: labs reviewed, cbc still refusing in the am 12/13: asleep, still refusing labs, no fc 12/14: no events noted, no bleeding, no fc 12/15: not agitated, sinemet has been started per neuro 12/16: dc when public guardian raises money 12/17: dc planning as early as today, alert no complaints this am 12/18: no f/c, no night sweats, no bleeding noted 12/20: is on eliquis, sleeping, i woke him up, again refusing cbc 12/21: no bleeding, no chill, no night sweats, examined with rn, refusing to be seen 12/22: no events to report, no bleeding, no f/c 12/23: on eliquis, has been refusing POs, refusing exam too 12/24: sleeping, arousable, no major events 12/25: no events no bleeding, no chills noted, refusing again exam, and labs 12/27: pending placement, no new recs, no f/c noted, no bleeding 12/28: no fevers or chills noted, no bleeding, still refusing lab draws 12/29: recommended he have labs drawn, he refused 12/30: sergio again reordered labs, he says wont do them 12/31: pending placement, no f/c, no night sweats, dw cm 01/01: no events, no bleeding, sleeping comfortably in bed 01/04: no overnight events, no seizures, pending placement 01/05: no events, on eliquis to continue at this time Objective Objective Current Medications Medications (Trade) Dose Ordered Sig/Eduardo Route PRN Reason Start Time Stop Time Status Last Admin Dose Admin Apixaban (Eliquis) 5 mg BID ORAL 01/03/19 09:00 02/03/19 08:59 01/05/19 10:00 Diltiazem HCl (Cardizem CD) 120 mg DAILY ORAL 01/03/19 09:00 01/27/19 08:59 01/05/19 10:00 Levothyroxine Sodium (Synthroid) 50 mcg DAILY@0630 ORAL 01/06/19 06:30 02/05/19 06:29 Lorazepam (Ativan 2mg/ml 1ml) 1 mg Q4H PRN IV For Anxiety 01/03/19 08:00 01/09/19 07:59 Mirtazapine (Remeron) 7.5 mg BEDTIME ORAL 01/03/19 21:00 01/06/19 20:59 01/04/19 22:53 Olanzapine (ZyPREXA) 30 mg DAILY ORAL 01/05/19 21:00 01/11/19 20:59 UNV Olanzapine (ZyPREXA) 30 mg ONCE ORAL 01/05/19 12:45 01/05/19 21:00 Last 24 Hour Vital Signs Date Time Temp Pulse Resp B/P (MAP) Pulse Ox O2 Delivery O2 Flow Rate FiO2 01/05/19 12:00 98.4 79 20 130/95 (107) 98 01/05/19 12:00 Room Air 01/05/19 10:00 76 160/92 01/05/19 08:00 97.9 80 18 142/76 (98) 98 01/05/19 04:00 81 01/05/19 04:00 98.4 81 20 147/63 (91) 96 81 01/05/19 00:17 99.7 80 20 120/87 (98) 97 80 01/05/19 00:00 85 01/04/19 20:00 93 01/04/19 20:00 Room Air 01/04/19 20:00 98.3 93 20 140/78 (98) 96 101 01/04/19 16:00 68 01/04/19 16:00 97.3 101 20 133/80 (97) 99 101 01/04/19 12:00 97.5 70 20 137/89 (105) 100 70 01/04/19 12:00 72 01/04/19 09:00 Room Air 01/04/19 09:00 71 142/86 01/04/19 08:00 97.2 72 20 142/86 (104) 97 72 01/04/19 08:00 63 01/04/19 04:00 66 01/04/19 04:00 97.6 66 19 109/69 (82) 98 75 01/04/19 00:00 65 01/04/19 00:00 98.5 66 19 133/85 (101) 98 75 01/03/19 21:00 Room Air 01/03/19 20:00 98.9 72 18 135/81 (99) 96 75 01/03/19 20:00 70 01/03/19 16:00 97.0 65 18 104/72 (83) 99 75 01/03/19 16:00 65 Intake and Output 01/04/19 01/05/19 19:00 07:00 # Voids 2 1 Height (Feet): 5 Height (Inches): 6.00 Weight (Pounds): 121 Objective PE: VITAL SIGNS: Have been reviewed. CHEST: Clear to auscultation. CV: Regular rate and rhythm. No murmurs or extra sounds. GASTROINTESTINAL: Soft, nontender, and nondistended. No organomegaly. EXTREMITIES: No edema. Moves all four extremities. NEUROLOGIC: Sensory intact to light touch. Reflexes are equal on both sides. Bennie Goss MD Jan 05, 2019 13:37
--- NOTE | 2019-01-05 13:45 | NUR ---
CASE MANAGEMENT:REVIEW 01/05/19 SI: HYPOTENSION. AFIB W/RVR 98.4 79 20 160/92 98% ON RA IS: SYNTHROID PO QD ZYPREXA PO QD CARDIZEM PO QD ELIQUIS PO BID REMERON PO QHS : TRANSFERRED FROM MED/SURG TO TELEMETRY
--- NOTE | 2019-01-05 13:48 | NUR ---
DISCHARGE PLANNING 1) [facility] PUBLIC GUARDIAN ~ ISRAEL SESAY T: [phone]..HAS EXHAUSTED ALL OF HER CONTACTS AND CANNOT HELP WITH B&C PLACEMENT 2)MA CASE [facility] T: [phone] FAXED B&C LIST WHICH HAS ALREADY BEEN EXHAUSTED PER SUPERVISOR DIALS 3) SPOKE WITH CANINE ENFORCEMENT OFFICER ~ JAN T: [phone] REQUESTED SHE FIND A LICENSED B&C AND WE WILL WORK ON BEGINNING OF THE MONTH PAYMENT JAN SAID SHE WOULD TRY TO FIND A B&C AND CALL THIS COIL TIER BACK
--- NOTE | 2019-01-05 15:15 | NUR ---
NURSE NOTES: Dr. Jalloh, order Levothyroxine 50mcg po once a day pt has hypothyroid . Doctor also ordered to restart zyprexza 30mg po once a day.
[2019-01-05 16:00] VITALS: BP 143/91
--- NOTE | 2019-01-05 17:04 | General Progress Note ---
Assessment/Plan Status: stable, unchanged Assessment/Plan: 63 y/o man with hx of paroxysmal atrial fibrillation, presented to the hospital with pre-syncope, found to have rapid atrial fibrillation now pending placement # Disposition - notes reviewed, still pending placement Difficult placement. Per casework specialist no insurance available. Last notes reported [facility] as conservator. Need to continue efforts by CM and SW to place. SW spoke with Daily Sequeira [phone] who states Veronica spoke with SSI and patient' s SSI will be reinstated December 17. WENDY inquired about placement. Daily indicted she will contact various board and cares but could not guarantee she would locate placement due to patient currently not having income. ( PER DISCUSSION WITH RN, CURRENT CONSERVATOR MANAGES THE PATIENT'S MONEY) SW updated CM. Will continue to follow up. # Hypotension- resolved - Monitor BP #Paroxysmal Atrial Fibrillation #Atrial fibrillation with RVR, controlled - Cont beta zack and Diltiazem for rate control - holding parameters. - Cont NOAC.. - echo did not show any remarkable changes - Apprec cardiology recs #Anemia due to chronic illness #Thrombocytopenia - Hgb and platelet count appeared to be at baseline, seen by Hematology, no new changes recommended. Labs stable. #unstable gait -continue PT - PATIENT WILL NEED TO BE WITHOUT FWW in order to return to his [facility]. Recommend DC to assisted living facility at DC per PT final report. Otherwise, will need new placement. quality improvement manager follow up is needed. SW note for conservator reviewed. 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 NEED TO HAVE SW follow up on this DAVID. ? Formal complain for conservator and request new conservator vs other legal action. #Behavorial disorder -psych meds restarted -psychiatry consulted Medically stable for discharge when placement is approved. Time of note may not reflect my encounter Subjective Allergies: Coded Allergies: RISPERIDONE (Unverified Allergy, Unknown, 07/04/18) ZIPRASIDONE (Verified Allergy, Unknown, 06/30/18) Subjective says he's doing fine afib on exam no acute events pending placement Objective Last 24 Hour Vital Signs Date Time Temp Pulse Resp B/P (MAP) Pulse Ox O2 Delivery O2 Flow Rate FiO2 01/05/19 12:00 82 01/05/19 12:00 98.4 79 20 130/95 (107) 98 01/05/19 12:00 Room Air 01/05/19 10:00 76 160/92 01/05/19 08:00 97.9 80 18 142/76 (98) 98 01/05/19 08:00 86 01/05/19 04:00 81 01/05/19 04:00 98.4 81 20 147/63 (91) 96 81 01/05/19 00:17 99.7 80 20 120/87 (98) 97 80 01/05/19 00:00 85 01/04/19 20:00 93 01/04/19 20:00 Room Air 01/04/19 20:00 98.3 93 20 140/78 (98) 96 101 Intake and Output 01/04/19 01/05/19 19:00 07:00 # Voids 2 1 Height (Feet): 5 Height (Inches): 6.00 Weight (Pounds): 121 Objective GEN: WWN, NAD, Alert CV: RRR, no M, R, G, no jvd RESP: CTAB, no w/r/c ABD: normal bowel sounds, soft, non tender EXT: normal muscle tone, no tenderness NEURO: grossly normal, no tremors, a x o x 3 Oriana Jalloh DO Jan 05, 2019 17:04
--- NOTE | 2019-01-05 19:42 | NUR ---
HAND-OFF: Report given to Sabas/ RN, pt in stable condition watching TV. Endorsed to RN that pt needs to be encouraged to eat he ate very little today.
--- NOTE | 2019-01-05 19:43 | NUR ---
NURSE NOTES: Received patient from Marielle JARAMILLO. Patient is awake and oriented x2.Patient is on room air, tolerating well, showing no signs of respiratory distress. IV site is Right AC 22g, patent and asymptomatic. Bed is locked, placed in lowest position, side rails up x3, bed alarm on, will continue to monitor.
[2019-01-05 20:00] VITALS: BP 129/83
[2019-01-05] MEDS: OLANZapine 10mg tab ORAL SCH (20:53)
[2019-01-06 04:00] VITALS: BP 146/81
--- NOTE | 2019-01-06 07:10 | NUR ---
NURSE NOTES: Report received from ELLA Glover. Denilson Poole. IN RA. Jessika SOB. R AC 22g, IV sluggish however, patent, site intact. L hand edema noted. Bed on lowest position, side rails upx2, brakes engaged. Call light within easy reach. Addendum: 01/06/19 at 1842 by Ej Grant RN WRONG PATIENT
--- NOTE | 2019-01-06 07:10 | NUR ---
NURSE NOTES: Report received from ELLA Glover. Patient laying in bed on right side. Awake. Doesn't respond however shakes head from left to right when addressed. IN RA. shook head from side to side when asked if experiencing pain. Refused IV site check. Will try again later. Bed on lowest position, side rails upx2, brakes engaged. Calll light within easy reach. Patient near Nurse's station.
--- NOTE | 2019-01-06 07:20 | NUR ---
HAND-OFF: Report given to Ej JARAMILLO.
--- NOTE | 2019-01-06 08:23 | Hematology/Onc Progress Note ---
Assessment/Plan Assessment/Plan # Anemia of chronic disease due to underlying chronic medical issues, multifactorial --> Anemia workup has been reviewed. Ferritin 83, TIBC 242 --> No evidence of hemolysis is noted, peripheral smear has been reviewed. --> Hgb goal >7. Transfuse prn. --> Epogen or iron at this time is not particularly indicated --> Medications have been reviewed --> hgb trend 14.1-->12.5--> 12.3-->11-->11.2-->10 --> still has been refusing labs AGAIN and AGAIN # Thrombocytopenia - potential causes multifactorial, evaluate liver and viral etiologies to begin, also could be related to underlying medications patient has received. --> Hep panel and HIV on PRIOR admission was negative --> US abd negative for cirrhosis and hsm --> Peripheral smear ordered to evaluate for blasts/schistocytes, none noted --> abx and other meds have been reviewed (one contributor could be depakote) --> ok for ppx if plt >50k w/ either heparin or lovenox --> Plt trend 118-->169k-->187k--> 102K->133k-->154k-->182k # FTT with decreased bmi on admission --> began on mirtazapine, to continue at this time --> daily weight and monitor # Atelectasis, optimize pulmonary hygiene/mobilize as tolerated --> on cxr appears stable --> per pulm recs # Paroxysmal AFib, per cardiology recs--> on noac --> on eliquis (ok to continue) # Hypertension --> controlled, sbp goal <140 --> as per cards # Hypothyroidism --> Synthroid po to continue # Lactic acidosis --> has resolved # MACARENA which has resolved --> per renal care # Placement pending --> rehab, and pt/ot -> difficult with placement with insurance --> daily dw cms The timing of this note does not necessarily reflect the time of the patient was seen. Greatly appreciate consultation! Subjective Allergies: Coded Allergies: RISPERIDONE (Unverified Allergy, Unknown, 07/04/18) ZIPRASIDONE (Verified Allergy, Unknown, 06/30/18) Subjective 11/06: Pt resting in bed. No acute distress. DC planning. 11/08: Pt asleep in bed. No acute events. 11/10: Pt stable, no signs of acute distress or SOB. Venous duplex negative. 11/11: Pt resting in bed. Afebrile, no sob. MRI brain pending. 11/12: Pt in bed, sleeping. No respiratory distress noted. DC planning. 11/13: Pt awake and alert, refused morning meds. No signs of SOB or pain observed. Plt count significantly improved overnight. 11/15: Pt denies pain, no complaints of dyspnea 11/17: Pt resting in bed no chest pain or dyspnea, no other complaints 11/18: unable to place picc given do not have consent 11/20: no acute events reported. 11/21: pt refused am labs as well as am meds. h/h stable from prior labs. 11/22: pt no acute distress. Afebrile, VS reviewed. 11/23: no events reported, no f/c noted 11/24: refusing to participate in exam, labs have been reviewed 11/25: eating ensure this am, discharge planning pending, deandre 11/26: on noac, continues, no bleeding, hgb is 11.2 11/27: refusing labs this am, discussed with him importance 11/28: resting comfortably, no acute events, no bleeding reported, no night sweats 11/29: no events, no bleeding reported, no night sweats 11/30: no events, no bleeding, no chills, no major night sweats 12/01: getting rehab, pt/ot as needed, no f/c 12/02: walking around the priest with a FWW, says feeling better 12/03: given ativan overnight, feeling better 12/04: awake and alert, no acute events, placement pending 12/05: awake and alert, resting in bed, no acute events. 12/06: anxious and aggravated, vs stable, placement pending per porter sample case 12/07: no events to report, no f/c, no night sweats refusing po, will start on mirtazpine 12/08: no events noted, no f/c, no night sweats, no bleeding noted 12/09: no events, eating breakfast, cbc again reordered 12/10: no fevers or chills noted, no bleeding, no events, pending placement 12/11: walking around in hallway, no complaints, eating 12/12: labs reviewed, cbc still refusing in the am 12/13: asleep, still refusing labs, no fc 12/14: no events noted, no bleeding, no fc 12/15: not agitated, sinemet has been started per neuro 12/16: dc when public guardian raises money 12/17: dc planning as early as today, alert no complaints this am 12/18: no f/c, no night sweats, no bleeding noted 12/20: is on eliquis, sleeping, i woke him up, again refusing cbc 12/21: no bleeding, no chill, no night sweats, examined with rn, refusing to be seen 12/22: no events to report, no bleeding, no f/c 12/23: on eliquis, has been refusing POs, refusing exam too 12/24: sleeping, arousable, no major events 12/25: no events no bleeding, no chills noted, refusing again exam, and labs 12/27: pending placement, no new recs, no f/c noted, no bleeding 12/28: no fevers or chills noted, no bleeding, still refusing lab draws 12/29: recommended he have labs drawn, he refused 12/30: sergio again reordered labs, he says wont do them 12/31: pending placement, no f/c, no night sweats, dw cm 01/01: no events, no bleeding, sleeping comfortably in bed 01/04: no overnight events, no seizures, pending placement 01/05: no events, on eliquis to continue at this time 01/06: ao x2, no signs of respiratory distress, no fever, labs refused Objective Objective Current Medications Medications (Trade) Dose Ordered Sig/Eduardo Route PRN Reason Start Time Stop Time Status Last Admin Dose Admin Apixaban (Eliquis) 5 mg BID ORAL 01/03/19 09:00 02/03/19 08:59 01/05/19 17:30 Diltiazem HCl (Cardizem CD) 120 mg DAILY ORAL 01/03/19 09:00 01/27/19 08:59 01/05/19 10:00 Levothyroxine Sodium (Synthroid) 50 mcg DAILY@0630 ORAL 01/06/19 06:30 02/05/19 06:29 Lorazepam (Ativan 2mg/ml 1ml) 1 mg Q4H PRN IV For Anxiety 01/03/19 08:00 01/09/19 07:59 Mirtazapine (Remeron) 7.5 mg BEDTIME ORAL 01/03/19 21:00 01/06/19 20:59 01/05/19 20:53 Olanzapine (ZyPREXA) 30 mg QHS ORAL 01/05/19 21:00 02/04/19 20:59 01/05/19 20:53 Last 24 Hour Vital Signs Date Time Temp Pulse Resp B/P (MAP) Pulse Ox O2 Delivery O2 Flow Rate FiO2 01/06/19 04:00 98.2 73 18 146/81 (102) 95 01/06/19 03:53 74 01/05/19 23:38 77 01/05/19 21:00 Room Air 01/05/19 20:00 98.2 72 20 129/83 (98) 95 01/05/19 19:17 76 01/05/19 16:00 79 01/05/19 16:00 99.3 77 20 143/91 (108) 96 01/05/19 12:00 82 01/05/19 12:00 98.4 79 20 130/95 (107) 98 01/05/19 12:00 Room Air 01/05/19 10:00 76 160/92 01/05/19 08:00 97.9 80 18 142/76 (98) 98 01/05/19 08:00 86 01/05/19 04:00 81 01/05/19 04:00 98.4 81 20 147/63 (91) 96 81 01/05/19 00:17 99.7 80 20 120/87 (98) 97 80 01/05/19 00:00 85 01/04/19 20:00 93 01/04/19 20:00 Room Air 01/04/19 20:00 98.3 93 20 140/78 (98) 96 101 01/04/19 16:00 68 01/04/19 16:00 97.3 101 20 133/80 (97) 99 101 01/04/19 12:00 97.5 70 20 137/89 (105) 100 70 01/04/19 12:00 72 01/04/19 09:00 Room Air 01/04/19 09:00 71 142/86 Intake and Output 01/05/19 01/06/19 18:59 06:59 Intake Total 200 ml 120 ml Balance 200 ml 120 ml Intake Oral 200 ml 120 ml # Voids 2 1 Height (Feet): 5 Height (Inches): 6.00 Weight (Pounds): 121 Objective PE: VITAL SIGNS: Have been reviewed. CHEST: Clear to auscultation. CV: Regular rate and rhythm. No murmurs or extra sounds. GASTROINTESTINAL: Soft, nontender, and nondistended. No organomegaly. EXTREMITIES: No edema. Moves all four extremities. NEUROLOGIC: Sensory intact to light touch. Reflexes are equal on both sides. Bennie Goss MD Jan 06, 2019 08:23
[2019-01-06] MEDS: dilTIAZem HCl CD 120mg cap ORAL SCH (09:00)
[2019-01-06] MEDS: Eliquis 5mg tablet ORAL SCH ×2 (09:00→17:19)
--- NOTE | 2019-01-06 09:20 | NUR ---
NURSE NOTES: Pt. refused medication, VS and meal. Chose was given. Pleaded with. Still refusing.
--- NOTE | 2019-01-06 11:10 | NUR ---
NURSE NOTES: Refused to drink water or juice.
--- NOTE | 2019-01-06 12:22 | NUR ---
GLOVE BOARDER NOTES SPOKE WITH VENITA FROM [facility], NO MALE BEDS @ THIS TIME. MALE BED WILL BE AVAILABLE NEXT WEEK. WILL CALL BACK ON FRIDAY. DCP ONGOING. Addendum: 01/06/19 at 1712 by ELENI JEFFREY RN RN SPOKE WITH KIRA FROM [facility], VERIFIED FAX RECEIVED. CURRENTLY UNDER REVIEW. SPOKE WITH SIMONE FROM [facility] IN [place],PATIENT ACCEPTED PENDING FUNDING FROM [facility]. AWAITING CALL BACK FROM MRS. SESAY. WILL FOLLOW UP.
--- NOTE | 2019-01-06 13:10 | NUR ---
NURSE NOTE: Refused medication, meal, VS. Laying on right side since morning. Refused change of position.
--- NOTE | 2019-01-06 13:12 | NUR ---
*-* INSURANCE *-* UPDATED CLINICALS HAVE BEEN FAXED TO: [facility] F:[phone]
--- NOTE | 2019-01-06 13:33 | NUR ---
*-* DISCHARGE PLANNING *-* PATIENT HAS BEEN REFERRED TO: [facility] [address] F: [phone]
--- NOTE | 2019-01-06 14:09 | General Progress Note ---
Assessment/Plan Status: stable, unchanged Assessment/Plan: 63 y/o man with hx of paroxysmal atrial fibrillation, presented to the hospital with pre-syncope, found to have rapid atrial fibrillation now pending placement # Disposition - notes reviewed, still pending placement Difficult placement. Per showcase trimmer no insurance available. [facility] notes reported [facility]. Need to continue efforts by CM and SW to place. SW spoke with Daily Sequeira [phone] who states Veronica spoke with SSI and patient' s SSI will be reinstated December 17. WENDY inquired about placement. Daily indicted she will contact various board and cares but could not guarantee she would locate placement due to patient currently not having income. ( PER DISCUSSION WITH RN, CURRENT CONSERVATOR MANAGES THE PATIENT'S MONEY) SW updated CM. Will continue to follow up. # Hypotension- resolved - Monitor BP #Paroxysmal Atrial Fibrillation #Atrial fibrillation with RVR, controlled - Cont beta zack and Diltiazem for rate control - holding parameters. - Cont NOAC.. - echo did not show any remarkable changes - Apprec cardiology recs #Anemia due to chronic illness #Thrombocytopenia - Hgb and platelet count appeared to be at baseline, seen by Hematology, no new changes recommended. Labs stable. #unstable gait -continue PT - PATIENT WILL NEED TO BE WITHOUT FWW in order to return to his STACY. Recommend DC to assisted living facility at DC per PT final report. Otherwise, will need new placement. manager front office follow up is needed. SW note for conservator reviewed. I DO NOT UNDERSTAND WHY THE CONSERVATOR REFUSED TO PLACE THE PATIENT BACK TO HIS CUSTODIAL - per discussion with RN. NEED TO HAVE SW follow up on this DAVID. ? Formal complain for conservator and request new conservator vs other legal action. #Behavorial disorder -psych meds restarted -psychiatry consulted Medically stable for discharge when placement is approved. Time of note may not reflect my encounter Subjective Date patient seen: Jan 06, 2019 Allergies: Coded Allergies: RISPERIDONE (Unverified Allergy, Unknown, 07/04/18) ZIPRASIDONE (Verified Allergy, Unknown, 06/30/18) Subjective not talkative this am denies cp or sob no acute events vss Objective Last 24 Hour Vital Signs Date Time Temp Pulse Resp B/P (MAP) Pulse Ox O2 Delivery O2 Flow Rate FiO2 01/06/19 08:00 75 01/06/19 04:00 98.2 73 18 146/81 (102) 95 01/06/19 03:53 74 01/05/19 23:38 77 01/05/19 21:00 Room Air 01/05/19 20:00 98.2 72 20 129/83 (98) 95 01/05/19 19:17 76 01/05/19 16:00 79 01/05/19 16:00 99.3 77 20 143/91 (108) 96 Intake and Output 01/05/19 01/06/19 19:00 07:00 Intake Total 200 ml 120 ml Balance 200 ml 120 ml Intake Oral 200 ml 120 ml # Voids 2 1 Height (Feet): 5 Height (Inches): 6.00 Weight (Pounds): 121 Objective GEN: WWN, NAD, Alert CV: RRR, no M, R, G, no jvd RESP: CTAB, no w/r/c ABD: normal bowel sounds, soft, non tender EXT: normal muscle tone, no tenderness NEURO: grossly normal, no tremors, a x o x 3 Oriana Jalloh DO Jan 06, 2019 14:09
--- NOTE | 2019-01-06 14:30 | NUR ---
NURSE NOTES: Informed Dr. Jalloh, Pt's refusal to med, meal, VS and care. No new orders at this time.
--- NOTE | 2019-01-06 15:12 | NUR ---
CASE MANAGEMENT:REVIEW 01/06/19 SI: HYPOTENSION. AFIB W/RVR 98.2 73 18 146/81 95% ON RA IS: SYNTHROID PO QD ZYPREXA PO QD CARDIZEM PO QD ELIQUIS PO BID REMERON PO QHS : TRANSFERRED FROM MED/SURG TO TELEMETRY
--- NOTE | 2019-01-06 19:10 | NUR ---
NURSE NOTES: Recognized Pt. was on 3E, walking and talking to other nurses. Invited to visit Pt. and help encourage to eat. Pt was willing to drink 2 cups of water and 1 ensure.
--- NOTE | 2019-01-06 19:42 | NUR ---
HAND-OFF: Report given to ELLA Kline. Patient in stable condition.
[2019-01-06 20:00] VITALS: BP 137/86
[2019-01-06] MEDS ORDERED: dilTIAZem HCl CD 120mg cap ORAL SCH (20:30)
[2019-01-06] MEDS: OLANZapine 10mg tab ORAL SCH (20:33)
[2019-01-06] MEDS: LORazepam Inj 2mg/ml 1ml IV PRN (20:45)
--- NOTE | 2019-01-06 20:59 | NUR ---
NURSE NOTES: pt converted from SR to SVT HR 140-160 sustaining. Per report, pt has been refusing all meds and care. pt was encouraged to take cardiazem, dose given now. Ativan was also administered. Called Dr Ta and left message regarding elevated HR,a waiting call back. will continue to monitor pt.
--- NOTE | 2019-01-06 21:38 | NUR ---
NURSE NOTES: recvd call back from Dr Linden Calero recnate order to give cardiazem IVP 10 mg x1.
[2019-01-06] MEDS ORDERED: dilTIAZem HCl 25mg/5ml Inj IVP SCH (21:40)
[2019-01-07] VITALS: BP 102/79
[2019-01-07] MEDS: LORazepam Inj 2mg/ml 1ml IV PRN (03:02)
[2019-01-07 04:00] VITALS: BP 106/66
--- NOTE | 2019-01-07 07:20 | NUR ---
NURSE NOTES: Report received from ELLA Kline. Patient laying in bed on left side. Patient is asleep and awaken to name. Patient states he does not want to talk to the incoming nurse. Patient is breathing even and unlabored on room air. Patient is ST at 120. Patient denies pain. Refused IV site check. Bed on lowest position, side rails upx2, brakes engaged. Call light within easy reach. Patient near Nurse's station. Will follow up with plan of care.
[2019-01-07 08:00] VITALS: BP 120/70
[2019-01-07] MEDS: Eliquis 5mg tablet ORAL SCH ×2 (08:56→17:10)
[2019-01-07] MEDS: dilTIAZem HCl CD 120mg cap ORAL SCH (08:56)
--- NOTE | 2019-01-07 09:30 | NUR ---
Social Service Note Public Guardian Mrs. Sequeira is out of the office until January 11. Message left for magazine supervisor Veronica Hayes [phone] regarding impending dc placement: [facility] [address] [facility] [address], [facility] [phone]. Awaiting a return call.
--- NOTE | 2019-01-07 09:30 | NUR ---
NURSE NOTES: Patient heart rate is in the 150/160s. Patient is ST/AFib. Notified Dr. Jalloh. Patient is asymptomatic. Patient denies chest pain or chest palpitations. Patient was eating breakfast. Per Dr. Jalloh, continue to monitor patient and contact her if the patient is symptomatic.
--- NOTE | 2019-01-07 10:08 | Hematology/Onc Progress Note ---
Assessment/Plan Assessment/Plan # Anemia of chronic disease due to underlying chronic medical issues, multifactorial --> Anemia workup has been reviewed. Ferritin 83, TIBC 242 --> No evidence of hemolysis is noted, peripheral smear has been reviewed. --> Hgb goal >7. Transfuse prn. --> Epogen or iron at this time is not particularly indicated --> Medications have been reviewed --> hgb trend 14.1-->12.5--> 12.3-->11-->11.2-->10 --> still has been refusing labs AGAIN and AGAIN # Thrombocytopenia - potential causes multifactorial, evaluate liver and viral etiologies to begin, also could be related to underlying medications patient has received. --> Hep panel and HIV on PRIOR admission was negative --> US abd negative for cirrhosis and hsm --> Peripheral smear ordered to evaluate for blasts/schistocytes, none noted --> abx and other meds have been reviewed (one contributor could be depakote) --> ok for ppx if plt >50k w/ either heparin or lovenox --> Plt trend 118-->169k-->187k--> 102K->133k-->154k-->182k # FTT with decreased bmi on admission --> began on mirtazapine, to continue at this time --> daily weight and monitor # Atelectasis, optimize pulmonary hygiene/mobilize as tolerated --> on cxr appears stable --> per pulm recs # Paroxysmal AFib, per cardiology recs--> on noac --> on eliquis (ok to continue) # Hypertension --> controlled, sbp goal <140 --> as per cards # Hypothyroidism --> Synthroid po to continue # Lactic acidosis --> has resolved # MACARENA which has resolved --> per renal care # Placement pending --> rehab, and pt/ot --> difficult with placement with insurance --> daily dw cms The timing of this note does not necessarily reflect the time of the patient was seen. Greatly appreciate consultation! Subjective Constitutional: Denies: no symptoms, chills, fever, malaise, weakness, other HEENT: Denies: no symptoms, eye pain, blurred vision, tearing, double vision, ear pain, ear discharge, nose pain, nose congestion, throat pain, throat swelling, mouth pain, mouth swelling, other Cardiovascular: Denies: no symptoms, chest pain, edema, irregular heart rate, lightheadedness, palpitations, syncope, other Respiratory: Denies: no symptoms, cough, shortness of breath, SOB with excertion, SOB at rest, sputum, wheezing, other Gastrointestinal/Abdominal: Denies: no symptoms, abdomen distended, abdominal pain, black stools, tarry stools, blood in stool, constipated, diarrhea, difficulty swallowing, nausea, poor appetite, poor fluid intake, rectal bleeding , vomiting, other Genitourinary: Denies: no symptoms, burning, discharge, frequency, flank pain, hematuria, incontinence, pain, urgency, other Neurologic/Psychiatric: Denies: no symptoms, anxiety, depressed, emotional problems, headache, numbness, paresthesia, pre-existing deficit, seizure, tingling, tremors, weakness, other Allergies: Coded Allergies: RISPERIDONE (Unverified Allergy, Unknown, 07/04/18) ZIPRASIDONE (Verified Allergy, Unknown, 06/30/18) Subjective 11/06: Pt resting in bed. No acute distress. DC planning. 11/08: Pt asleep in bed. No acute events. 11/10: Pt stable, no signs of acute distress or SOB. Venous duplex negative. 11/11: Pt resting in bed. Afebrile, no sob. MRI brain pending. 11/12: Pt in bed, sleeping. No respiratory distress noted. DC planning. 11/13: Pt awake and alert, refused morning meds. No signs of SOB or pain observed. Plt count significantly improved overnight. 11/15: Pt denies pain, no complaints of dyspnea 11/17: Pt resting in bed no chest pain or dyspnea, no other complaints 11/18: unable to place picc given do not have consent 11/20: no acute events reported. 11/21: pt refused am labs as well as am meds. h/h stable from prior labs. 11/22: pt no acute distress. Afebrile, VS reviewed. 11/23: no events reported, no f/c noted 11/24: refusing to participate in exam, labs have been reviewed 11/25: eating ensure this am, discharge planning pending, deandre FERRARI 7/11: on noac, continues, no bleeding, hgb is 11.2 11/27: refusing labs this am, discussed with him importance 11/28: resting comfortably, no acute events, no bleeding reported, no night sweats 11/29: no events, no bleeding reported, no night sweats 11/30: no events, no bleeding, no chills, no major night sweats 12/01: getting rehab, pt/ot as needed, no f/c 12/02: walking around the priest with a FWW, says feeling better 12/03: given ativan overnight, feeling better 12/04: awake and alert, no acute events, placement pending 12/05: awake and alert, resting in bed, no acute events. 12/06: anxious and aggravated, vs stable, placement pending per bilingual patient support caseworker 12/07: no events to report, no f/c, no night sweats refusing po, will start on mirtazpine 12/08: no events noted, no f/c, no night sweats, no bleeding noted 12/09: no events, eating breakfast, cbc again reordered 12/10: no fevers or chills noted, no bleeding, no events, pending placement 12/11: walking around in hallway, no complaints, eating 12/12: labs reviewed, cbc still refusing in the am 12/13: asleep, still refusing labs, no fc 12/14: no events noted, no bleeding, no fc 12/15: not agitated, sinemet has been started per neuro 12/16: dc when public guardian raises money 12/17: dc planning as early as today, alert no complaints this am 12/18: no f/c, no night sweats, no bleeding noted 12/20: is on eliquis, sleeping, i woke him up, again refusing cbc 12/21: no bleeding, no chill, no night sweats, examined with rn, refusing to be seen 12/22: no events to report, no bleeding, no f/c 12/23: on eliquis, has been refusing POs, refusing exam too 12/24: sleeping, arousable, no major events 12/25: no events no bleeding, no chills noted, refusing again exam, and labs 12/27: pending placement, no new recs, no f/c noted, no bleeding 12/28: no fevers or chills noted, no bleeding, still refusing lab draws 12/29: recommended he have labs drawn, he refused 12/30: segrio again reordered labs, he says wont do them 12/31: pending placement, no f/c, no night sweats, dw cm 01/01: no events, no bleeding, sleeping comfortably in bed 01/04: no overnight events, no seizures, pending placement 01/05: no events, on eliquis to continue at this time 01/06: ao x2, no signs of respiratory distress, no fever, labs refused 01/07: cardizem was given as bp was high, still refusing labs at this time Objective Objective Current Medications Medications (Trade) Dose Ordered Sig/Eduardo Route PRN Reason Start Time Stop Time Status Last Admin Dose Admin Apixaban (Eliquis) 5 mg BID ORAL 01/03/19 09:00 02/03/19 08:59 01/07/19 08:56 Diltiazem HCl (Cardizem CD) 120 mg DAILY ORAL 01/03/19 09:00 01/27/19 08:59 01/07/19 08:56 Levothyroxine Sodium (Synthroid) 50 mcg DAILY@0630 ORAL 01/06/19 06:30 02/05/19 06:29 01/07/19 06:33 Lorazepam (Ativan 2mg/ml 1ml) 1 mg Q4H PRN IV For Anxiety 01/03/19 08:00 01/09/19 07:59 01/07/19 03:02 Olanzapine (ZyPREXA) 30 mg QHS ORAL 01/05/19 21:00 02/04/19 20:59 01/06/19 20:33 Last 24 Hour Vital Signs Date Time Temp Pulse Resp B/P (MAP) Pulse Ox O2 Delivery O2 Flow Rate FiO2 01/07/19 09:00 Room Air 01/07/19 08:56 120 120/70 01/07/19 08:00 96.6 120 22 120/70 (87) 97 01/07/19 07:48 124 01/07/19 04:00 126 01/07/19 04:00 97.1 74 17 106/66 (79) 97 01/07/19 01:22 144 01/07/19 00:26 140 130/88 01/07/19 00:00 97.1 72 18 102/79 (87) 100 01/06/19 21:00 Room Air 01/06/19 20:35 140 130/88 01/06/19 20:00 97.7 87 19 137/86 (103) 93 01/06/19 20:00 79 01/06/19 16:00 74 01/06/19 12:00 75 01/06/19 09:00 Room Air 01/06/19 08:00 75 01/06/19 04:00 98.2 73 18 146/81 (102) 95 01/06/19 03:53 74 01/05/19 23:38 77 01/05/19 21:00 Room Air 01/05/19 20:00 98.2 72 20 129/83 (98) 95 01/05/19 19:17 76 01/05/19 16:00 79 01/05/19 16:00 99.3 77 20 143/91 (108) 96 01/05/19 12:00 82 01/05/19 12:00 98.4 79 20 130/95 (107) 98 01/05/19 12:00 Room Air Intake and Output 01/06/19 01/07/19 18:59 06:59 Intake Total 0 ml Balance 0 ml Intake Oral 0 ml # Voids 2 Height (Feet): 5 Height (Inches): 6.00 Weight (Pounds): 121 Objective PE: VITAL SIGNS: Have been reviewed. CHEST: Clear to auscultation. CV: Regular rate and rhythm. No murmurs or extra sounds. GASTROINTESTINAL: Soft, nontender, and nondistended. No organomegaly. EXTREMITIES: No edema. Moves all four extremities. NEUROLOGIC: Sensory intact to light touch. Reflexes are equal on both sides. Bennie Goss MD Jan 07, 2019 10:08
--- NOTE | 2019-01-07 10:21 | NUR ---
NURSE NOTES: Patient allowed bp to be read. Bp is 143/77 and heart rhythm is afib 153. Patient denies pain. Dr. Jalloh is aware. No new orders at this time.
--- NOTE | 2019-01-07 11:51 | NUR ---
GAME TECHNICIAN NOTES PLACED CALL TO PUBLIC GUARDIAN OFFICE SPOKE WITH DANNIELLE.INFORMED DANNIELLE PLACEMENT HAS BEEN SECURED FOR THE PATIENT. CONTACT INFORMATION OF THE PLACEMENT GIVEN TO DANNIELLE, VERIFICATION OF LICENSE COMPLETED. PER DANNIELLE A OK TO ADMIT FORM NEEDS TO BE COMPLETED BY THE MD AND REVIEWED BY THE PUBLIC GUARDIAN PRIOR TO DISCHARGE.PROVIDED DANNIELLE WITH MY FAX NUMBER. WAITING FOR DOCUMENT. DANNIELLE [phone]
[2019-01-07 12:00] VITALS: BP 134/85
--- NOTE | 2019-01-07 13:26 | NUR ---
*-* INSURANCE *-* UPDATED CLINICALS HAVE BEEN FAXED TO: [facility] F:[phone]
[2019-01-07 16:00] VITALS: BP 134/85
[2019-01-07] MEDS ORDERED: dilTIAZem HCl CD 120mg cap ORAL SCH (16:28)
--- NOTE | 2019-01-07 16:28 | General Progress Note ---
Assessment/Plan Status: stable, unchanged Assessment/Plan: 63 y/o man with hx of paroxysmal atrial fibrillation, presented to the hospital with pre-syncope, found to have rapid atrial fibrillation now pending placement # Disposition - notes reviewed, still pending placement, patient may have placement. Follow- up with Lauren casework supervisor #Repeated tachycardia -Patient with A. fib -Increase diltiazem 120 p.o. daily to 240 p.o. daily, with extra dose of diltiazem 120 mg -Check TSH, free T4, CBC, BMP, UA for other possible causes of tachycardia Difficult placement. Per casework supervisor no insurance available. Last notes reported [facility] as [facility]. Need to continue efforts by CM and SW to place. WENDY spoke with Daily Sequeira [phone] who states Veronica spoke with SSI and patient' s SSI will be reinstated December 17. WENDY inquired about placement. Daily indicted she will contact various board and cares but could not guarantee she would locate placement due to patient currently not having income. ( PER DISCUSSION WITH RN, CURRENT CONSERVATOR MANAGES THE PATIENT'S MONEY) WENDY updated CM. Will continue to follow up. # Hypotension- resolved - Monitor BP #Paroxysmal Atrial Fibrillation #Atrial fibrillation with RVR, controlled - Cont beta zack and Diltiazem for rate control - holding parameters. - Cont NOAC.. - echo did not show any remarkable changes - Apprec cardiology recs #Anemia due to chronic illness #Thrombocytopenia - Hgb and platelet count appeared to be at baseline, seen by Hematology, no new changes recommended. Labs stable. #unstable gait -continue PT - PATIENT WILL NEED TO BE WITHOUT FWW in order to return to his STACY. Recommend DC to assisted living facility at DC per PT final report. Otherwise, will need new placement. configuration manager follow up is needed. SW note for conservator reviewed. I DO NOT UNDERSTAND WHY THE CONSERVATOR REFUSED TO PLACE THE PATIENT BACK TO HIS STACY - per discussion with RN. NEED TO HAVE SW follow up on this DAVID. ? Formal complain for conservator and request new conservator vs other legal action. #Behavorial disorder -psych meds restarted -psychiatry consulted Medically stable for discharge when placement is approved. Time of note may not reflect my encounter Subjective Date patient seen: Jan 07, 2019 Allergies: Coded Allergies: RISPERIDONE (Unverified Allergy, Unknown, 07/04/18) ZIPRASIDONE (Verified Allergy, Unknown, 06/30/18) Subjective Patient denies chest pain, palpitations, shortness of breath, headache Objective Last 24 Hour Vital Signs Date Time Temp Pulse Resp B/P (MAP) Pulse Ox O2 Delivery O2 Flow Rate FiO2 01/07/19 16:00 97.9 114 20 134/85 (101) 95 01/07/19 12:00 97.3 113 20 134/85 (101) 97 01/07/19 11:55 154 01/07/19 09:00 Room Air 01/07/19 08:56 120 120/70 01/07/19 08:00 96.6 120 22 120/70 (87) 97 01/07/19 07:48 124 01/07/19 04:00 126 01/07/19 04:00 97.1 74 17 106/66 (79) 97 01/07/19 01:22 144 01/07/19 00:26 140 130/88 01/07/19 00:00 97.1 72 18 102/79 (87) 100 01/06/19 21:00 Room Air 01/06/19 20:35 140 130/88 01/06/19 20:00 97.7 87 19 137/86 (103) 93 01/06/19 20:00 79 Intake and Output 01/06/19 01/07/19 19:00 07:00 # Voids 2 Height (Feet): 5 Height (Inches): 6.00 Weight (Pounds): 121 Objective GEN: WWN, NAD, Alert CV: Tachycardic RESP: CTAB, no w/r/c ABD: normal bowel sounds, soft, non tender EXT: normal muscle tone, no tenderness NEURO: grossly normal, no tremors, a x o x 3 Oriana Jalloh DO Jan 07, 2019 16:28
--- NOTE | 2019-01-07 19:34 | NUR ---
HAND-OFF: Report given to Jose Roberto.
--- NOTE | 2019-01-07 19:35 | NUR ---
NURSE NOTES: Received patient awake, lying in semi meng's; resting comfortably. A/O x 3-4. Denies pain at this time. No signs of acute cardiorespiratory distress noted. Bed at lowest position, brakes on, siderails x3. Call light within reach. Comfort care provided. Will continue to monitor.
[2019-01-07 20:00] VITALS: BP 118/75
[2019-01-07] MEDS: OLANZapine 10mg tab ORAL SCH (21:14)
[2019-01-08] VITALS: BP 150/100
--- NOTE | 2019-01-08 03:59 | NUR ---
NURSE NOTES: Safety maintained throughout the night. No significant change of condition noted. Will continue to monitor.
[2019-01-08 04:00] VITALS: BP 108/65
[2019-01-08 06:48] LABS: BASOPHILS % (AUTO) 1.6 % (0.0-2.0); EOSINOPHILS % (AUTO) 3.4 % (0.0-3.0); HEMATOCRIT 42.4 % (42.0-52.0); HEMOGLOBIN 14.1 G/DL (14.2-18.0); LYMPHOCYTES % (AUTO) 30.8 % (20.0-45.0); MEAN CORPUSCULAR VOLUME 90 FL (80-99); MONOCYTES % (AUTO) 12.1 % (1.0-10.0); NEUTROPHILS % (AUTO) 52.1 % (45.0-75.0); PLATELET COUNT 258 K/UL (150-450); RED CELL DISTRIBUTION WIDTH 12.7 % (11.6-14.8); WHITE BLOOD COUNT 6.1 K/UL (4.8-10.8)
--- NOTE | 2019-01-08 07:20 | NUR ---
NURSE NOTES: Received report from ELLA Dubon. Patient is awake, lying in semi meng's; resting comfortably. A/O x 3-4. Denies pain at this time. No signs of acute cardiorespiratory distress noted. Bed at lowest position, brakes on, side rails x3. Call light within reach. Comfort care provided. Will continue to monitor.
--- NOTE | 2019-01-08 07:20 | NUR ---
HAND-OFF: Report given to ELLA Maciel. Plan of care endorsed.
[2019-01-08 07:28] LABS: ANION GAP 8 mmol/L (5-15); BLOOD UREA NITROGEN 22 mg/dL (7-18); CALCIUM 9.9 MG/DL (8.5-10.1); CARBON DIOXIDE 27 MMOL/L (21-32); CHLORIDE 105 MMOL/L (98-107); POTASSIUM 3.9 MMOL/L (3.5-5.1); SODIUM 140 MMOL/L (136-145)
[2019-01-08 08:00] VITALS: BP 137/93
[2019-01-08] MEDS: Eliquis 5mg tablet ORAL SCH ×2 (08:13→18:00)
--- NOTE | 2019-01-08 08:37 | NUR ---
CASE MANAGEMENT:REVIEW 01/07/19 SI: HYPOTENSION. AFIB W/RVR 97.3 113 20 134/85 97% ON RA IS: CARDIZEM PO QD SYNTHROID PO QD ZYREXA PO QHS ELIQUIS PO BID : TELEMETRY STATUS 01/08/19 SI: HYPOTENSION. AFIB W/RVR 97.5 88 18 137/93 95% ON RA IS: SYNTHROID PO QD ZYPREXA PO QD CARDIZEM PO QD ELIQUIS PO BID REMERON PO QHS : TELEMETRY STATUS
[2019-01-08] MEDS ORDERED: dilTIAZem HCl CD 240mg cap ORAL SCH (09:00)
--- NOTE | 2019-01-08 09:48 | Hematology/Onc Progress Note ---
Assessment/Plan Assessment/Plan # Anemia of chronic disease due to underlying chronic medical issues, multifactorial --> Anemia workup has been reviewed. Ferritin 83, TIBC 242 --> No evidence of hemolysis is noted, peripheral smear has been reviewed. --> Hgb goal >7. Transfuse prn. --> Epogen or iron at this time is not particularly indicated --> Medications have been reviewed --> hgb trend 14.1-->12.5--> 12.3-->11-->11.2-->10-->14.1 --> still has been refusing labs AGAIN and AGAIN # Thrombocytopenia - potential causes multifactorial, evaluate liver and viral etiologies to begin, also could be related to underlying medications patient has received. --> Hep panel and HIV on PRIOR admission was negative --> US abd negative for cirrhosis and hsm --> Peripheral smear ordered to evaluate for blasts/schistocytes, none noted --> abx and other meds have been reviewed (one contributor could be depakote) --> ok for ppx if plt >50k w/ either heparin or lovenox --> Plt trend 118-->169k-->187k--> 102K->133k-->154k-->182k-->258 # FTT with decreased bmi on admission --> began on mirtazapine, to continue at this time --> daily weight and monitor # Atelectasis, optimize pulmonary hygiene/mobilize as tolerated --> on cxr appears stable --> per pulm recs # Paroxysmal AFib, per cardiology recs--> on noac --> on eliquis (ok to continue) # Hypertension --> controlled, sbp goal <140 --> as per cards # Hypothyroidism --> Synthroid po to continue # Lactic acidosis --> has resolved # MACARENA which has resolved --> per renal care # Placement pending --> rehab, and pt/ot --> difficult with placement with insurance --> daily dw cms The timing of this note does not necessarily reflect the time of the patient was seen. Greatly appreciate consultation! Subjective Allergies: Coded Allergies: RISPERIDONE (Unverified Allergy, Unknown, 07/04/18) ZIPRASIDONE (Verified Allergy, Unknown, 06/30/18) All Systems: reviewed and negative except above Subjective 11/06: Pt resting in bed. No acute distress. DC planning. 11/08: Pt asleep in bed. No acute events. 11/10: Pt stable, no signs of acute distress or SOB. Venous duplex negative. 11/11: Pt resting in bed. Afebrile, no sob. MRI brain pending. 11/12: Pt in bed, sleeping. No respiratory distress noted. DC planning. 11/13: Pt awake and alert, refused morning meds. No signs of SOB or pain observed. Plt count significantly improved overnight. 11/15: Pt denies pain, no complaints of dyspnea 11/17: Pt resting in bed no chest pain or dyspnea, no other complaints 11/18: unable to place picc given do not have consent 11/20: no acute events reported. 11/21: pt refused am labs as well as am meds. h/h stable from prior labs. 11/22: pt no acute distress. Afebrile, VS reviewed. 11/23: no events reported, no f/c noted 11/24: refusing to participate in exam, labs have been reviewed 11/25: eating ensure this am, discharge planning pending, dw CM 11/26: on noac, continues, no bleeding, hgb is 11.2 11/27: refusing labs this am, discussed with him importance 11/28: resting comfortably, no acute events, no bleeding reported, no night sweats 11/29: no events, no bleeding reported, no night sweats 11/30: no events, no bleeding, no chills, no major night sweats 12/01: getting rehab, pt/ot as needed, no f/c 12/02: walking around the priest with a FWW, says feeling better 12/03: given ativan overnight, feeling better 12/04: awake and alert, no acute events, placement pending 12/05: awake and alert, resting in bed, no acute events. 12/06: anxious and aggravated, vs stable, placement pending per dependency case manager 12/07: no events to report, no f/c, no night sweats refusing po, will start on mirtazpine 12/08: no events noted, no f/c, no night sweats, no bleeding noted 12/09: no events, eating breakfast, cbc again reordered 12/10: no fevers or chills noted, no bleeding, no events, pending placement 12/11: walking around in hallway, no complaints, eating 12/12: labs reviewed, cbc still refusing in the am 12/13: asleep, still refusing labs, no fc 12/14: no events noted, no bleeding, no fc 12/15: not agitated, sinemet has been started per neuro 12/16: dc when public guardian raises money 12/17: dc planning as early as today, alert no complaints this am 12/18: no f/c, no night sweats, no bleeding noted 12/20: is on eliquis, sleeping, i woke him up, again refusing cbc 12/21: no bleeding, no chill, no night sweats, examined with rn, refusing to be seen 12/22: no events to report, no bleeding, no f/c 12/23: on eliquis, has been refusing POs, refusing exam too 12/24: sleeping, arousable, no major events 12/25: no events no bleeding, no chills noted, refusing again exam, and labs 12/27: pending placement, no new recs, no f/c noted, no bleeding 12/28: no fevers or chills noted, no bleeding, still refusing lab draws 12/29: recommended he have labs drawn, he refused 12/30: sergio again reordered labs, he says wont do them 12/31: pending placement, no f/c, no night sweats, dw cm 01/01: no events, no bleeding, sleeping comfortably in bed 01/04: no overnight events, no seizures, pending placement 01/05: no events, on eliquis to continue at this time 01/06: ao x2, no signs of respiratory distress, no fever, labs refused 01/07: cardizem was given as bp was high, still refusing labs at this time 01/08: cbc reviewed, on apixaban and diltiazem, plt count improved Objective Objective Current Medications Medications (Trade) Dose Ordered Sig/Eduardo Route PRN Reason Start Time Stop Time Status Last Admin Dose Admin Apixaban (Eliquis) 5 mg BID ORAL 01/03/19 09:00 02/03/19 08:59 01/08/19 08:13 Diltiazem HCl (Cardizem CD) 240 mg DAILY ORAL 01/08/19 09:00 02/07/19 08:59 01/08/19 08:13 Levothyroxine Sodium (Synthroid) 50 mcg DAILY@0630 ORAL 01/06/19 06:30 02/05/19 06:29 01/08/19 06:01 Lorazepam (Ativan 2mg/ml 1ml) 1 mg Q4H PRN IV For Anxiety 01/03/19 08:00 01/09/19 07:59 01/07/19 03:02 Olanzapine (ZyPREXA) 30 mg QHS ORAL 01/05/19 21:00 02/04/19 20:59 01/07/19 21:14 Last 24 Hour Vital Signs Date Time Temp Pulse Resp B/P (MAP) Pulse Ox O2 Delivery O2 Flow Rate FiO2 01/08/19 08:13 88 137/93 01/08/19 08:00 97.5 88 18 137/93 (108) 95 01/08/19 07:41 84 01/08/19 04:00 68 01/08/19 04:00 98.6 70 18 108/65 (79) 99 01/08/19 00:00 97.1 118 18 150/100 (117) 96 01/08/19 00:00 95 01/07/19 22:31 Room Air 01/07/19 21:00 Room Air 01/07/19 20:00 97.4 100 18 118/75 (89) 97 01/07/19 20:00 101 01/07/19 16:34 114 134/85 01/07/19 16:00 97.9 114 20 134/85 (101) 95 01/07/19 12:00 97.3 113 20 134/85 (101) 97 01/07/19 11:55 154 01/07/19 09:00 Room Air 01/07/19 08:56 120 120/70 01/07/19 08:00 96.6 120 22 120/70 (87) 97 01/07/19 07:48 124 01/07/19 04:00 126 01/07/19 04:00 97.1 74 17 106/66 (79) 97 01/07/19 01:22 144 8/22/19 00:26 140 130/88 01/07/19 00:00 97.1 72 18 102/79 (87) 100 01/06/19 21:00 Room Air 01/06/19 20:35 140 130/88 01/06/19 20:00 97.7 87 19 137/86 (103) 93 01/06/19 20:00 79 01/06/19 16:00 74 01/06/19 12:00 75 Intake and Output 01/07/19 01/08/19 18:59 06:59 Intake Total 840 ml Balance 840 ml Intake Oral 840 ml # Voids 3 Labs Test 01/08/19 06:07 White Blood Count 6.1 K/UL (4.8-10.8) Red Blood Count 4.70 M/UL (4.70-6.10) Hemoglobin 14.1 G/DL (14.2-18.0) Hematocrit 42.4 % (42.0-52.0) Mean Corpuscular Volume 90 FL (80-99) Mean Corpuscular Hemoglobin 30.0 PG (27.0-31.0) Mean Corpuscular Hemoglobin Concent 33.2 G/DL (32.0-36.0) Red Cell Distribution Width 12.7 % (11.6-14.8) Platelet Count 258 K/UL (150-450) Mean Platelet Volume 5.4 FL (6.5-10.1) Neutrophils (%) (Auto) 52.1 % (45.0-75.0) Lymphocytes (%) (Auto) 30.8 % (20.0-45.0) Monocytes (%) (Auto) 12.1 % (1.0-10.0) Eosinophils (%) (Auto) 3.4 % (0.0-3.0) Basophils (%) (Auto) 1.6 % (0.0-2.0) Sodium Level 140 MMOL/L (136-145) Potassium Level 3.9 MMOL/L (3.5-5.1) Chloride Level 105 MMOL/L (98-107) Carbon Dioxide Level 27 MMOL/L (21-32) Anion Gap 8 mmol/L (5-15) Blood Urea Nitrogen 22 mg/dL (7-18) Creatinine 1.0 MG/DL (0.55-1.30) Estimat Glomerular Filtration Rate > 60 mL/min (>60) Glucose Level 104 MG/DL (74-106) Calcium Level 9.9 MG/DL (8.5-10.1) Thyroid Stimulating Hormone (TSH) 3.400 uiU/mL (0.358-3.740) Free Thyroxine 1.62 NG/DL (0.76-1.46) Height (Feet): 5 Height (Inches): 6.00 Weight (Pounds): 121 Objective PE: VITAL SIGNS: Have been reviewed. CHEST: Clear to auscultation. CV: Regular rate and rhythm. No murmurs or extra sounds. GASTROINTESTINAL: Soft, nontender, and nondistended. No organomegaly. EXTREMITIES: No edema. Moves all four extremities. NEUROLOGIC: Sensory intact to light touch. Reflexes are equal on both sides. Bennie Goss MD Jan 08, 2019 09:48
--- NOTE | 2019-01-08 10:18 | General Progress Note ---
Assessment/Plan Status: stable, unchanged Assessment/Plan: 63 y/o man with hx of paroxysmal atrial fibrillation, presented to the hospital with pre-syncope, found to have rapid atrial fibrillation now pending placement # Disposition - notes reviewed, still pending placement, patient may have placement. Follow- up with Lauren case preparer and liner #Repeated tachycardia, resolved -Patient with A. fib -Continue diltiazem 240 mg p.o. daily -Check TSH, free T4, CBC, BMP, UA for other possible causes of tachycardia: T4 elevated, decrease levothyroxine from 50 MCG to 25 MCG Difficult placement. Per case preparer and liner no insurance available. Last notes reported [facility]. Need to continue efforts by CM and SW to place. WENDY spoke with Daily Sequeira [phone] who states Veronica spoke with SSI and patient' s SSI will be reinstated December 17. WENDY inquired about placement. Daily indicted she will contact various board and cares but could not guarantee she would locate placement due to patient currently not having income. ( PER DISCUSSION WITH RN, CURRENT CONSERVATOR MANAGES THE PATIENT'S MONEY) WENDY updated CM. Will continue to follow up. # Hypotension- resolved - Monitor BP #Paroxysmal Atrial Fibrillation #Atrial fibrillation with RVR, controlled - Cont beta zack and Diltiazem for rate control - holding parameters. - Cont NOAC.. - echo did not show any remarkable changes - Apprec cardiology recs #Anemia due to chronic illness #Thrombocytopenia, resolved - Hgb and platelet count appeared to be at baseline, seen by Hematology, no new changes recommended. Labs stable. #unstable gait -continue PT - PATIENT WILL NEED TO BE WITHOUT FWW in order to return to his [facility]. Recommend DC to assisted living facility at [place] per PT final report. Otherwise, will need new placement. manager shift follow up is needed. SW note for conservator reviewed. I DO NOT UNDERSTAND WHY THE CONSERVATOR REFUSED TO PLACE THE PATIENT BACK TO HIS [facility] - per discussion with RN. NEED TO HAVE SW follow up on this DAVID. ? Formal complain for conservator and request new conservator vs other legal action. #Behavorial disorder -psych meds restarted -psychiatry consulted Medically stable for discharge when placement is approved. Time of note may not reflect my encounter Subjective Date patient seen: Jan 08, 2019 Allergies: Coded Allergies: RISPERIDONE (Unverified Allergy, Unknown, 07/04/18) ZIPRASIDONE (Verified Allergy, Unknown, 06/30/18) All Systems: reviewed and negative except above Subjective Heart rate is now controlled, blood pressure within normal limits. Patient denies chest pain, palpitations, shortness of breath, headache Objective Last 24 Hour Vital Signs Date Time Temp Pulse Resp B/P (MAP) Pulse Ox O2 Delivery O2 Flow Rate FiO2 01/08/19 09:00 Room Air 01/08/19 08:13 88 137/93 01/08/19 08:00 97.5 88 18 137/93 (108) 95 01/08/19 07:41 84 01/08/19 04:00 68 01/08/19 04:00 98.6 70 18 108/65 (79) 99 01/08/19 00:00 97.1 118 18 150/100 (117) 96 01/08/19 00:00 95 01/07/19 22:31 Room Air 01/07/19 21:00 Room Air 01/07/19 20:00 97.4 100 18 118/75 (89) 97 01/07/19 20:00 101 01/07/19 16:34 114 134/85 01/07/19 16:00 97.9 114 20 134/85 (101) 95 01/07/19 12:00 97.3 113 20 134/85 (101) 97 01/07/19 11:55 154 Intake and Output 01/07/19 01/08/19 18:59 06:59 Intake Total 840 ml Balance 840 ml Intake Oral 840 ml # Voids 3 Laboratory Tests 01/08/19 06:07: White Blood Count 6.1, Red Blood Count 4.70, Hemoglobin 14.1L, Hematocrit 42.4, Mean Corpuscular Volume 90, Mean Corpuscular Hemoglobin 30.0, Mean Corpuscular Hemoglobin Concent 33.2, Red Cell Distribution Width 12.7, Platelet Count 258, Mean Platelet Volume 5.4L, Neutrophils (%) (Auto) 52.1, Lymphocytes (%) (Auto) 30.8, Monocytes (%) (Auto) 12.1H, Eosinophils (%) (Auto) 3.4H, Basophils (%) ( Auto) 1.6, Sodium Level 140, Potassium Level 3.9, Chloride Level 105, Carbon Dioxide Level 27, Anion Gap 8, Blood Urea Nitrogen 22H, Creatinine 1.0, Estimat Glomerular Filtration Rate > 60, Glucose Level 104, Calcium Level 9.9, Thyroid Stimulating Hormone (TSH) 3.400, Free Thyroxine 1.62H Height (Feet): 5 Height (Inches): 6.00 Weight (Pounds): 121 Objective GEN: WWN, NAD, Alert CV: Normal rate and rhythm no murmurs rubs or gallops RESP: CTAB, no w/r/c ABD: normal bowel sounds, soft, non tender EXT: normal muscle tone, no tenderness NEURO: At baseline with no changes Oriana Jalloh DO Jan 08, 2019 10:18
[2019-01-08 12:00] VITALS: BP 116/56
--- NOTE | 2019-01-08 12:12 | NUR ---
RD ASSESSMENT & RECOMMENDATIONS SEE CARE ACTIVITY FOR COMPLETE ASSESSMENT DAILY ESTIMATED NEEDS: Needs based on cardiac/ 56kg 25-30 kcals/kg 4039-6894 total kcals 1-1.5 g protein/kg 56-84 g total protein 25-30 mL/kg 7032-7632 total fluid mLs NUTRITION DIAGNOSIS: Increased kcal/prot intake needs R/T wt loss as evidenced by pt w/ possible significant wt loss of 23lbs/17.5% in 4 months, poor PO intake upon adm, now w/ irregular/ variable intake CURRENT DIET:REGULAR + Ensure Enlive TID w/ meals PO DIET RECOMMENDATIONS: Maintain liberalized REGULAR diet + continue Ensure Enlive TID w/ meals ADDITIONAL RECOMMENDATIONS: * Calibrated bedscale wt on 12/26=56.4kg (124lbs) -> rec weekly wt monitoring given h/o possible wt loss, variable PO * Vit D 1000 IU daily (low Vit D25=29) * Monitor PO intake closely -> now improved again, h/o refusing meals * Ensure Enlive MAXIMUM 4-5x per day (350kcal/20g prot per bottle) . .
[2019-01-08] MEDS ORDERED: SYNTHROID25 MCG ORAL (13:49)
[2019-01-08] MEDS ORDERED: OLANZAPINE10 MG ORAL (13:49)
[2019-01-08] MEDS ORDERED: ELIQUIS5 MG ORAL (13:49)
[2019-01-08] MEDS ORDERED: CARDIZEM CD240 MG ORAL (13:49)
--- NOTE | 2019-01-08 13:54 | NUR ---
*-* INSURANCE *-* UPDATED CLINICALS HAVE BEEN FAXED TO: [facility] F:[phone]
--- NOTE | 2019-01-08 13:54 | NUR ---
Social Service Note WENDY spoke with Aditya PG [phone] and confirmed patient can discharge today. Aditya will speak with Majo [phone] at [facility] regarding payment. WENDY spoke with Majo who states patient has been accepted. Patient must come with prescriptions and a 3 day supply of medications. WENDY discussed with MD and primary nurse. 3 day supply of medications will be provided by hospital pharmacy. Patient will dc via ambulance to: [facility] [address] [id number]
--- NOTE | 2019-01-08 14:37 | Discharge Summary ---
Discharge Summary Hospital Course Date of Admission Nov 04, 2018 at 18:55 Date of Discharge 01/08/19 Admitting Diagnosis GI bleed Reason for Hospitalization: Uncontrolled A. fib HPI Frantz Marina is a 63 year old male who was admitted on Nov 04, 2018 at 18:55 for Gastrointestinal Bleed Consultations Cardiology, psychiatry, neurology, hematology Procedures No surgical procedures done Hospital Course 63 y/o man with hx of paroxysmal atrial fibrillation, presented to the hospital with pre-syncope, found to have rapid atrial fibrillation. Patient was admitted with a long hospital course. Initially he was found to be in A. fib with RVR was consulted by cardiology. Echocardiogram was unremarkable with normal EF. Patient has been titrated on several medications for heart rate control and is currently on diltiazem 240 mg p.o. daily. Patient was also continued on Eliquis for stroke prevention given past medical history. Patient was continued on levothyroxine however given his most recent results of his dose was changed from 50 MCG to 25 MCG daily. Patient has been stable and medically cleared for discharge for many days. He has now been accepted at an assisted living facility called [facility]. Patient is discharged today with printed prescriptions to be taken with him to next facility. # Disposition - notes reviewed, still pending placement, patient may have placement. Follow- up with Lauren case monitor #Repeated tachycardia, resolved -Patient with A. fib -Continue diltiazem 240 mg p.o. daily -Check TSH, free T4, CBC, BMP, UA for other possible causes of tachycardia: T4 elevated, decrease levothyroxine from 50 MCG to 25 MCG Difficult placement. Per case monitor no insurance available. [facility] notes reported [facility]. Need to continue efforts by CM and WENDY to place. WENDY spoke with Daily Sequeira [phone] who states Veronica spoke with SSI and patient' s SSI will be reinstated December 17. WENDY inquired about placement. Daily indicted she will contact various board and cares but could not guarantee she would locate placement due to patient currently not having income. ( PER DISCUSSION WITH RN, CURRENT CONSERVATOR MANAGES THE PATIENT'S MONEY) WENDY updated CM. Will continue to follow up. # Hypotension- resolved - Monitor BP #Paroxysmal Atrial Fibrillation #Atrial fibrillation with RVR, controlled - Cont beta zack and Diltiazem for rate control - holding parameters. - Cont NOAC.. - echo did not show any remarkable changes - Apprec cardiology recs #Anemia due to chronic illness #Thrombocytopenia, resolved - Hgb and platelet count appeared to be at baseline, seen by Hematology, no new changes recommended. Labs stable. #unstable gait -continue PT - PATIENT WILL NEED TO BE WITHOUT FWW in order to return to his [facility]. Recommend DC to assisted living facility at [place] per PT final report. Otherwise, will need new placement. mechanical project manager follow up is needed. SW note for conservator reviewed. I DO NOT UNDERSTAND WHY THE CONSERVATOR REFUSED TO PLACE THE PATIENT BACK TO HIS [facility] - per discussion with RN. NEED TO HAVE SW follow up on this DAVID. ? Formal complain for conservator and request new conservator vs other legal action. #Behavorial disorder -psych meds restarted -psychiatry consulted Medically stable for discharge when placement is approved. Time of note may not reflect my encounter Discharge Medications New Medications: Apixaban (Eliquis) 5 Mg Tablet 5 MG ORAL BID, #60 TAB 1 Refill Diltiazem Hcl* (Cardizem Cd*) 240 Mg Cap.er.24h 240 MG ORAL DAILY, #30 CAP 1 Refill Levothyroxine Sodium* (Synthroid*) 25 Mcg Tablet 25 MCG ORAL DAILY@0630, #30 TAB 1 Refill Take in the morning on an empty stomach, at least 30 minutes before food. Olanzapine (Olanzapine) 10 Mg Tablet 30 MG ORAL QHS, #30 TAB 1 Refill Discontinued Medications: Apixaban (Eliquis) 5 Mg Tablet 5 MG PO BID, TAB Atorvastatin Calcium* (Atorvastatin Calcium*) 20 Mg Tablet 20 MG ORAL BEDTIME, TAB Benztropine Mesylate* (Cogentin*) 0.5 Mg Tablet 0.5 MG PO BID, TAB Diltiazem Hcl (Diltiazem Er) 180 Mg Capsule.er 180 MG PO, CAP Divalproex Sodium* (Depakote Er*) 500 Mg Tab.er.24h 500 MG ORAL EVERY 12 HOURS, TAB Gabapentin* (Gabapentin*) 100 Mg Capsule 100 MG ORAL THREE TIMES A DAY, CAP Levothyroxine Sodium (Synthroid) 137 Mcg Tablet 50 MCG ORAL DAILY, TAB Take in the morning on an empty stomach, at least 30 minutes before food. Levothyroxine Sodium* (Levothyroxine Sodium*) 75 Mcg Tablet 75 MCG ORAL DAILY, TAB Take in the morning on an empty stomach, at least 30 minutes before food. Lisinopril (Lisinopril*) 20 Mg Tablet 20 MG ORAL DAILY, TAB Metoprolol Succinate* (Metoprolol Succinate*) 25 Mg Tab.er.24h 25 MG ORAL DAILY, TAB Mirtazapine* (Mirtazapine*) 15 Mg Tablet 30 MG ORAL BEDTIME, TAB Olanzapine* (Zyprexa*) 10 Mg Tablet 20 MG ORAL DAILY, #30 TAB 0 Refills Discharge Condition Upon Discharge: stable Discharge Disposition Patient was discharged to [facility] (assisted living facility) Discharge Diagnoses: (1) Pre-syncope (2) Atrial fibrillation (3) Hypothyroid (4) HTN (hypertension) (5) Hyperkalemia (6) Anemia (7) Dehydration Oriana Jalloh DO Jan 08, 2019 14:37
[2019-01-08 16:00] VITALS: BP 137/88
--- NOTE | 2019-01-08 16:55 | NUR ---
Home Discharge: Patient is being discharged to [facility]. Awake, alert and oriented x2. Went over discharge instructions including medications, and follow up with doctor in 1-2 weeks. Patient has medication prescriptions in the green folder in patient belonging bag. Patient refused to signed belonging checklist. All medical devices such as IV, heart monitor, and ID band were removed. Patient left with [facility] with all personal belongings to EMS vehicle.
--- NOTE | 2019-01-08 19:20 | NUR ---
NURSE NOTES: Received call from [facility] ambulance, Lara. States a call from [facility]. Per [facility], "Patient is unable to take care of himself and must be brought back to [facility] Notified nursing underwriting clerks supervisor Milka and charge nurse Candy. When called [facility], patient is on the way back to [facility] emergency room.
[2019-01-08 20:00] VITALS: BP 144/94
--- NOTE | 2019-01-08 20:32 | NUR ---
NURSE NOTES: Received pt from [facility] EMT. Pt awake, alert, and talkative. Bed in lowest position. Call light within reach. EMT reported that pt was sent back because receiving nurse did not feel like pt could take care of themselves. Tele box applied. Will call the MD and Will continue to monitor.
[2019-01-08] MEDS ORDERED: Eliquis 5mg tablet ORAL SCH (22:30)
[2019-01-08] MEDS ORDERED: OLANZapine 10mg tab ORAL SCH (22:45)
--- NOTE | 2019-01-08 23:29 | NUR ---
NURSE NOTES: Pt very agitated, stripping clothes and bed, taking off tele box, and telling staff to get out of his room while he closes the door. Called and left a message with Dr. Jalloh asking for ativan PO PRN because pt will remove IV if one is applied. Dr. Jalloh called and gave the following orders: - Haldol 5 mg X 1 PO - Seroquel 50 mg
[2019-01-08] MEDS ORDERED: Haloperidol 5mg/ml Inj IM ONE (23:45)
[2019-01-09] VITALS: BP 119/86
--- NOTE | 2019-01-09 00:24 | NUR ---
NURSE NOTES: pt still repeatedly is trying to get out of bed to shut his room door even after PRN agitation meds were given. Pt was informed that his room cannot be closed d/t his condition but pt is refusing to obey. Dr. Jalloh was called and informed of his behavior as well as his cardiac rhythm switching from afib/aflutter to sinus rhythm, sustaining in the 130's with a high of 167. Awaiting call back. Will continue to monitor.
--- NOTE | 2019-01-09 01:22 | NUR ---
NURSE NOTES: Dr. Jalloh called back with orders to give cardizem daily dose early and bilateral wrist restraints. Will input order and will continue to monitor.
[2019-01-09] MEDS ORDERED: dilTIAZem HCl 50mg/10ml Inj IVP SCH (01:45)
[2019-01-09 04:00] VITALS: BP 141/77
[2019-01-09] MEDS ORDERED: Levothyroxine 25mcg tab ORAL SCH ×3 (06:30)
[2019-01-09] MEDS: Levothyroxine 25mcg tab ORAL SCH (06:48)
--- NOTE | 2019-01-09 07:45 | NUR ---
NURSE NOTES: Received reports from ELLA Farris. Pt is sitting in the chair. He is agitated. WIll continue to monitor.
[2019-01-09 08:00] VITALS: BP 135/91
[2019-01-09] MEDS: dilTIAZem HCl CD 240mg cap ORAL SCH (08:44)
[2019-01-09] MEDS: Eliquis 5mg tablet ORAL SCH ×2 (08:45→17:25)
[2019-01-09] MEDS ORDERED: Eliquis 5mg tablet ORAL SCH (09:00)
[2019-01-09] MEDS ORDERED: dilTIAZem HCl CD 240mg cap ORAL SCH ×3 (09:00)
[2019-01-09] MEDS ORDERED: NS 275ml ONE ×2 (11:13→11:20)
[2019-01-09] MEDS ORDERED: Tubing IV Secondary IV ONE (11:13)
[2019-01-09 12:00] VITALS: BP 123/78
--- NOTE | 2019-01-09 12:28 | General Progress Note ---
Assessment/Plan Status: stable, unchanged Assessment/Plan: 63 y/o man with hx of paroxysmal atrial fibrillation, presented to the hospital with pre-syncope, found to have rapid atrial fibrillation. Patient was admitted with a long hospital course. Initially he was found to be in A. fib with RVR was consulted by cardiology. Echocardiogram was unremarkable with normal EF. Patient has been titrated on several medications for heart rate control and is currently on diltiazem 240 mg p.o. daily. Patient was also continued on Eliquis for stroke prevention given past medical history. Patient was continued on levothyroxine however given his most recent results of his dose was changed from 50 MCG to 25 MCG daily. Patient has been stable and medically cleared for discharge for many days. He has now been accepted at an assisted living facility called [facility] in [facility]. Patient is discharged today with printed prescriptions to be taken with him to next facility. # Disposition Patient discharged to assisted facility on 01/08 09/04 and returned after denial. Patient pending placement. Patient is medically cleared for discharge. #tachycardia 2/2 afib, non-controlled -Patient with A. fib -Continue diltiazem 240 mg p.o. daily -Check TSH, free T4, CBC, BMP, UA for other possible causes of tachycardia: T4 elevated, decrease levothyroxine from 50 MCG to 25 MCG Difficult placement. Per ed case manager no insurance available. Last notes reported [facility]. Need to continue efforts by CM and WENDY to place. WENDY spoke with Daily Sequeira [phone] who states Veronica spoke with SSI and patient' s SSI will be reinstated December 17. WENDY inquired about placement. Daily indicted she will contact various board and cares but could not guarantee she would locate placement due to patient currently not having income. ( PER DISCUSSION WITH RN, CURRENT CONSERVATOR MANAGES THE PATIENT'S MONEY) WENDY updated CM. Will continue to follow up. # Hypotension- resolved - Monitor BP #Paroxysmal Atrial Fibrillation #Atrial fibrillation with RVR, controlled - Cont beta zack and Diltiazem for rate control - holding parameters. - Cont NOAC.. - echo did not show any remarkable changes - Apprec cardiology recs #Anemia due to chronic illness #Thrombocytopenia, resolved - Hgb and platelet count appeared to be at baseline, seen by Hematology, no new changes recommended. Labs stable. #unstable gait -continue PT - PATIENT WILL NEED TO BE WITHOUT FWW in order to return to his [facility]. Recommend DC to assisted living facility at DC per PT final report. Otherwise, will need new placement. manager cost follow up is needed. SW note for conservator reviewed. I DO NOT UNDERSTAND WHY THE CONSERVATOR REFUSED TO PLACE THE PATIENT BACK TO HIS RESIDENTIAL - per discussion with RN. NEED TO HAVE SW follow up on this DAVID. ? Formal complain for conservator and request new conservator vs other legal action. #Behavorial disorder -psych meds restarted -psychiatry consulted Medically stable for discharge when placement is approved. Time of note may not reflect my encounter Subjective Date patient seen: Jan 09, 2019 Allergies: Coded Allergies: RISPERIDONE (Unverified Allergy, Unknown, 07/04/18) ZIPRASIDONE (Verified Allergy, Unknown, 06/30/18) All Systems: reviewed and negative except above Subjective Patient discharged to assisted living yesterday and was denied to returns with A. fib RVR. Given diltiazem. No acute events, patient denies palpitations shortness of breath or chest pain Objective Last 24 Hour Vital Signs Date Time Temp Pulse Resp B/P (MAP) Pulse Ox O2 Delivery O2 Flow Rate FiO2 01/09/19 09:00 Room Air 01/09/19 08:44 133 135/91 01/09/19 08:00 97.6 133 20 135/91 (106) 97 01/09/19 08:00 133 01/09/19 04:00 98.6 97 18 141/77 (98) 97 01/09/19 04:00 148 01/09/19 01:52 148 01/09/19 01:48 154 119/86 01/09/19 01:16 155 01/09/19 00:00 98.2 154 20 119/86 (97) 93 01/08/19 21:00 Room Air 01/08/19 20:00 98.2 99 20 144/94 (111) 96 01/08/19 16:00 98.5 100 19 137/88 (104) 97 Intake and Output 01/08/19 01/09/19 18:59 06:59 # Voids 2 3 Height (Feet): 5 Height (Inches): 6.00 Weight (Pounds): 121 Objective GEN: WWN, NAD, Alert CV: Tachycardia, no murmurs rubs or gallops RESP: CTAB, no w/r/c ABD: normal bowel sounds, soft, non tender EXT: normal muscle tone, no tenderness NEURO: At baseline with no changes Oriana Jalloh DO Jan 09, 2019 12:28
[2019-01-09 16:00] VITALS: BP 107/73
--- NOTE | 2019-01-09 19:16 | NUR ---
HAND-OFF: Report given to ELLA Farris. Plan of care endorsed
--- NOTE | 2019-01-09 19:22 | NUR ---
NURSE NOTES: Received pt from ELLA Bartholomew. Pt awake, alert, and talkative. Bed in lowest position. Call light within reach. Will continue to monitor.
[2019-01-09 20:00] VITALS: BP 147/92
[2019-01-09] MEDS: OLANZapine 10mg tab ORAL SCH (20:38)
[2019-01-09] MEDS ORDERED: OLANZapine 10mg tab ORAL SCH ×3 (21:00)
[2019-01-10] VITALS: BP 134/66
--- NOTE | 2019-01-10 03:15 | NUR ---
HAND-OFF: Report given to ELLA Reza. Pt stable.
--- NOTE | 2019-01-10 03:18 | NUR ---
NURSE NOTES: Received pt from ELLA Bartholomew. Pt awake, alert, and talkative. IV site intact. Bed in lowest position. Call light within reach. Will continue to monitor. Addendum: 01/10/19 at 0318 by KADEN RAHMAN RN Received pt from ELLA Farris.
[2019-01-10 04:00] VITALS: BP 120/75
[2019-01-10] MEDS: Levothyroxine 25mcg tab ORAL SCH (06:15)
--- NOTE | 2019-01-10 07:37 | NUR ---
NURSE NOTES: Received report from ELLA Reza. Pt is sleeping in bed. No distress noted. Bed is in lowest position, side rails up X2, and call light is within reach. WIll continue to monitor.
[2019-01-10 08:00] VITALS: BP 135/78
[2019-01-10] MEDS: dilTIAZem HCl CD 240mg cap ORAL SCH (09:36)
[2019-01-10] MEDS: Eliquis 5mg tablet ORAL SCH ×2 (09:36→17:26)
--- NOTE | 2019-01-10 10:52 | Hematology/Onc Progress Note ---
Assessment/Plan Assessment/Plan # Anemia of chronic disease due to underlying chronic medical issues, multifactorial --> Anemia workup has been reviewed. Ferritin 83, TIBC 242 --> No evidence of hemolysis is noted, peripheral smear has been reviewed. --> Hgb goal >7. Transfuse prn. --> Epogen or iron at this time is not particularly indicated --> Medications have been reviewed --> hgb trend 14.1-->12.5--> 12.3-->11-->11.2-->10-->14.1 --> still has been refusing labs AGAIN # Thrombocytopenia - potential causes multifactorial, evaluate liver and viral etiologies to begin, also could be related to underlying medications patient has received. --> Hep panel and HIV on PRIOR admission was negative --> US abd negative for cirrhosis and hsm --> Peripheral smear ordered to evaluate for blasts/schistocytes, none noted --> abx and other meds have been reviewed (one contributor could be depakote) --> ok for ppx if plt >50k w/ either heparin or lovenox --> Plt trend 118-->169k-->187k--> 102K->133k-->154k-->182k-->258 # FTT with decreased bmi on admission --> began on mirtazapine, to continue at this time --> daily weight and monitor # Atelectasis, optimize pulmonary hygiene/mobilize as tolerated --> on cxr appears stable --> per pulm recs # Paroxysmal AFib, per cardiology recs--> on noac --> on eliquis (ok to continue) # Hypertension --> controlled, sbp goal <140 --> as per cards # Hypothyroidism --> Synthroid po to continue # Lactic acidosis --> has resolved # MACARENA which has resolved --> per renal care # Placement pending --> rehab, and pt/ot --> difficult with placement with insurance --> daily dw cms The timing of this note does not necessarily reflect the time of the patient was seen. Greatly appreciate consultation! Subjective Constitutional: Denies: no symptoms, chills, fever, malaise, weakness, other HEENT: Denies: no symptoms, eye pain, blurred vision, tearing, double vision, ear pain, ear discharge, nose pain, nose congestion, throat pain, throat swelling, mouth pain, mouth swelling, other Cardiovascular: Denies: no symptoms, chest pain, edema, irregular heart rate, lightheadedness, palpitations, syncope, other Respiratory: Denies: no symptoms, cough, shortness of breath, SOB with excertion, SOB at rest, sputum, wheezing, other Gastrointestinal/Abdominal: Denies: no symptoms, abdomen distended, abdominal pain, black stools, tarry stools, blood in stool, constipated, diarrhea, difficulty swallowing, nausea, poor appetite, poor fluid intake, rectal bleeding , vomiting, other Genitourinary: Denies: no symptoms, burning, discharge, frequency, flank pain, hematuria, incontinence, pain, urgency, other Neurologic/Psychiatric: Denies: no symptoms, anxiety, depressed, emotional problems, headache, numbness, paresthesia, pre-existing deficit, seizure, tingling, tremors, weakness, other Endocrine: Denies: no symptoms, excessive sweating, flushing, intolerance to cold, intolerance to heat, increased hunger, increased thirst, increased urine, unexplained weight gain, unexplained weight loss, other Allergies: Coded Allergies: RISPERIDONE (Unverified Allergy, Unknown, 07/04/18) ZIPRASIDONE (Verified Allergy, Unknown, 06/30/18) Subjective 11/06: Pt resting in bed. No acute distress. DC planning. 11/08: Pt asleep in bed. No acute events. 11/10: Pt stable, no signs of acute distress or SOB. Venous duplex negative. 11/11: Pt resting in bed. Afebrile, no sob. MRI brain pending. 11/12: Pt in bed, sleeping. No respiratory distress noted. DC planning. 11/13: Pt awake and alert, refused morning meds. No signs of SOB or pain observed. Plt count significantly improved overnight. 11/15: Pt denies pain, no complaints of dyspnea 11/17: Pt resting in bed no chest pain or dyspnea, no other complaints 11/18: unable to place picc given do not have consent 11/20: no acute events reported. 11/21: pt refused am labs as well as am meds. h/h stable from prior labs. 11/22: pt no acute distress. Afebrile, VS reviewed. 11/23: no events reported, no f/c noted 11/24: refusing to participate in exam, labs have been reviewed 11/25: eating ensure this am, discharge planning pending, deandre CM 11/26: on noac, continues, no bleeding, hgb is 11.2 11/27: refusing labs this am, discussed with him importance 11/28: resting comfortably, no acute events, no bleeding reported, no night sweats 11/29: no events, no bleeding reported, no night sweats 11/30: no events, no bleeding, no chills, no major night sweats 12/01: getting rehab, pt/ot as needed, no f/c 12/02: walking around the priest with a FWW, says feeling better 12/03: given ativan overnight, feeling better 12/04: awake and alert, no acute events, placement pending 12/05: awake and alert, resting in bed, no acute events. 12/06: anxious and aggravated, vs stable, placement pending per major case detective 12/07: no events to report, no f/c, no night sweats refusing po, will start on mirtazpine 12/08: no events noted, no f/c, no night sweats, no bleeding noted 12/09: no events, eating breakfast, cbc again reordered 12/10: no fevers or chills noted, no bleeding, no events, pending placement 12/11: walking around in hallway, no complaints, eating 12/12: labs reviewed, cbc still refusing in the am 12/13: asleep, still refusing labs, no fc 12/14: no events noted, no bleeding, no fc 12/15: not agitated, sinemet has been started per neuro 12/16: dc when public guardian raises money 12/17: dc planning as early as today, alert no complaints this am 12/18: no f/c, no night sweats, no bleeding noted 12/20: is on eliquis, sleeping, i woke him up, again refusing cbc 12/21: no bleeding, no chill, no night sweats, examined with rn, refusing to be seen 12/22: no events to report, no bleeding, no f/c 12/23: on eliquis, has been refusing POs, refusing exam too 12/24: sleeping, arousable, no major events 12/25: no events no bleeding, no chills noted, refusing again exam, and labs 12/27: pending placement, no new recs, no f/c noted, no bleeding 12/28: no fevers or chills noted, no bleeding, still refusing lab draws 12/29: recommended he have labs drawn, he refused 12/30: sergio again reordered labs, he says wont do them 12/31: pending placement, no f/c, no night sweats, dw cm 01/01: no events, no bleeding, sleeping comfortably in bed 01/04: no overnight events, no seizures, pending placement 01/05: no events, on eliquis to continue at this time 01/06: ao x2, no signs of respiratory distress, no fever, labs refused 01/07: cardizem was given as bp was high, still refusing labs at this time 01/08: cbc reviewed, on apixaban and diltiazem, plt count improved 01/10: overall feeling better, laying in bed, labs reviewed, bp better Objective Objective Current Medications Medications (Trade) Dose Ordered Sig/Eduardo Route PRN Reason Start Time Stop Time Status Last Admin Dose Admin Apixaban (Eliquis) 5 mg BID ORAL 01/09/19 09:00 02/08/19 08:59 01/10/19 09:36 Diltiazem HCl (Cardizem CD) 240 mg DAILY ORAL 01/09/19 09:00 02/08/19 08:59 01/10/19 09:36 Levothyroxine Sodium (Synthroid) 25 mcg DAILY@0630 ORAL 01/09/19 06:30 02/08/19 06:29 01/10/19 06:15 Olanzapine (ZyPREXA) 30 mg QHS ORAL 01/09/19 21:00 02/08/19 20:59 01/09/19 20:38 Quetiapine Fumarate (SEROquel) 50 mg Q12HR PRN ORAL for agitation 01/09/19 08:45 02/08/19 08:44 Last 24 Hour Vital Signs Date Time Temp Pulse Resp B/P (MAP) Pulse Ox O2 Delivery O2 Flow Rate FiO2 01/10/19 09:36 84 135/78 01/10/19 09:00 Room Air 01/10/19 08:00 84 01/10/19 08:00 97.8 70 20 135/78 (97) 100 01/10/19 04:00 97.3 72 18 120/75 (90) 99 01/10/19 04:00 72 01/10/19 01:00 90 01/10/19 00:00 92 01/10/19 00:00 98.0 89 20 134/66 (88) 96 01/09/19 21:00 Room Air 01/09/19 20:00 92 01/09/19 20:00 97.8 107 18 147/92 (110) 97 01/09/19 16:00 86 01/09/19 16:00 99.0 84 18 107/73 (84) 97 01/09/19 12:00 97.2 138 18 123/78 (93) 100 01/09/19 12:00 130 01/09/19 09:00 Room Air 01/09/19 08:44 133 135/91 01/09/19 08:00 97.6 133 20 135/91 (106) 97 01/09/19 08:00 133 01/09/19 04:00 98.6 97 18 141/77 (98) 97 01/09/19 04:00 148 01/09/19 01:52 148 01/09/19 01:48 154 119/86 01/09/19 01:16 155 01/09/19 00:00 98.2 154 20 119/86 (97) 93 01/08/19 21:00 Room Air 01/08/19 20:00 98.2 99 20 144/94 (111) 96 01/08/19 16:00 98.5 100 19 137/88 (104) 97 01/08/19 12:00 98.0 94 17 116/56 (76) 95 01/08/19 11:48 79 Intake and Output 01/09/19 01/10/19 19:00 07:00 Intake Total 360 ml 120 ml Output Total 100 ml Balance 360 ml 20 ml Intake Oral 360 ml 120 ml Output Urine Total 100 ml # Voids 2 3 Labs Test 01/08/19 06:07 White Blood Count 6.1 K/UL (4.8-10.8) Red Blood Count 4.70 M/UL (4.70-6.10) Hemoglobin 14.1 G/DL (14.2-18.0) Hematocrit 42.4 % (42.0-52.0) Mean Corpuscular Volume 90 FL (80-99) Mean Corpuscular Hemoglobin 30.0 PG (27.0-31.0) Mean Corpuscular Hemoglobin Concent 33.2 G/DL (32.0-36.0) Red Cell Distribution Width 12.7 % (11.6-14.8) Platelet Count 258 K/UL (150-450) Mean Platelet Volume 5.4 FL (6.5-10.1) Neutrophils (%) (Auto) 52.1 % (45.0-75.0) Lymphocytes (%) (Auto) 30.8 % (20.0-45.0) Monocytes (%) (Auto) 12.1 % (1.0-10.0) Eosinophils (%) (Auto) 3.4 % (0.0-3.0) Basophils (%) (Auto) 1.6 % (0.0-2.0) Sodium Level 140 MMOL/L (136-145) Potassium Level 3.9 MMOL/L (3.5-5.1) Chloride Level 105 MMOL/L (98-107) Carbon Dioxide Level 27 MMOL/L (21-32) Anion Gap 8 mmol/L (5-15) Blood Urea Nitrogen 22 mg/dL (7-18) Creatinine 1.0 MG/DL (0.55-1.30) Estimat Glomerular Filtration Rate > 60 mL/min (>60) Glucose Level 104 MG/DL (74-106) Calcium Level 9.9 MG/DL (8.5-10.1) Thyroid Stimulating Hormone (TSH) 3.400 uiU/mL (0.358-3.740) Free Thyroxine 1.62 NG/DL (0.76-1.46) Height (Feet): 5 Height (Inches): 6.00 Weight (Pounds): 121 Objective PE: VITAL SIGNS: Have been reviewed. CHEST: Clear to auscultation. CV: Regular rate and rhythm. No murmurs or extra sounds. GASTROINTESTINAL: Soft, nontender, and nondistended. No organomegaly. EXTREMITIES: No edema. Moves all four extremities. NEUROLOGIC: Sensory intact to light touch. Reflexes are equal on both sides. Bennie Goss MD Jan 10, 2019 10:51
[2019-01-10 12:00] VITALS: BP 126/78
--- NOTE | 2019-01-10 13:15 | Cardiology Report ---
APPROVED REPORT EKG Measurement Heart [id number] Atrial fibrillation with rapid ventricular response Nonspecific ST abnormality Abnormal ECG
--- NOTE | 2019-01-10 19:18 | NUR ---
HAND-OFF: Report given to ELLA Alicea. Plan of care endorsed
--- NOTE | 2019-01-10 19:20 | NUR ---
NURSE NOTES: Got report from [place] JARAMILLO. Pt in stable condition. Denies any pain. No s/s of distress or discomfort noted. Pt resting in bed comfortably. Bed in low and locked position, call light within reach, bedside table within reach. Continue to monitor.
[2019-01-10 20:00] VITALS: BP 119/90
[2019-01-10] MEDS: OLANZapine 10mg tab ORAL SCH (20:39)
[2019-01-11] VITALS: BP 138/93
[2019-01-11 04:00] VITALS: BP 132/69
[2019-01-11] MEDS: Levothyroxine 25mcg tab ORAL SCH (06:11)
--- NOTE | 2019-01-11 07:20 | NUR ---
HAND-OFF: Report given to Karen JARAMILLO. Endorsed plan of care.
--- NOTE | 2019-01-11 07:48 | NUR ---
NURSE NOTES: Received report from ELLA Alicea. The patient is resting on the bed without acute distress or shortness of breath. The patient's bed in the lowest position, call light in reach, and fall and aspiration precaution reinforced. The IV site on right hand 22G is intact and patent. The patient is on bilateral soft restraints, and the circulation is intact. Will continue plan of care.
[2019-01-11 08:00] VITALS: BP 136/83
--- NOTE | 2019-01-11 08:52 | NUR ---
DISCHARGE PLANNING PATIENT HAS BEEN REFERRED TO: [facility] ON[facility] FAX RECEIPTS HAVE BEEN RECEIVED, BONE CRUSHER WILL FOLLOW UP
[2019-01-11] MEDS: dilTIAZem HCl CD 240mg cap ORAL SCH (09:02)
[2019-01-11] MEDS: Eliquis 5mg tablet ORAL SCH ×2 (09:03→17:38)
--- NOTE | 2019-01-11 09:46 | NUR ---
Social Service Note [facility] [phone], to inform him that patient returned to the hospital. Willian will speak with team members at the [facility] to determine if there are additional options they may be able to provide. WENDY received a voice message from [facility], indicating that when patient arrived at home initially he refused to get off the gurney. When he got off the gurney patient stated he couldn't walk and need help with ADL's. Patient has shown independence with ADL and has been walking with FWW. WENDY left a message for Aditya Senior Duty of the [facility] [phone]. Will continue to monitor.
--- NOTE | 2019-01-11 11:34 | NUR ---
CASE MANAGEMENT:REVIEW 01/11/19 SI: HYPOTENSION. AFIB W/RVR 98.6 82 104 18 136/83 97% ON RA IS: SYNTHROID PO QD ZYPREXA PO QD CARDIZEM PO QD ELIQUIS PO BID : TELEMETRY STATUS PATIENT WENT TO [facility] ON FRIDAY AND WAS IMMEDIATELY SENT BACK D/T BEHAVORIAL ISSUES
[2019-01-11 12:00] VITALS: BP 118/69
--- NOTE | 2019-01-11 13:00 | NUR ---
*-* INSURANCE *-* UPDATED CLINICALS HAVE BEEN FAXED TO: [facility] F:[phone]
--- NOTE | 2019-01-11 14:02 | NUR ---
NURSE NOTES: Notified DO Shubham regarding atrial fibrillation with heart rate ranged from 81 to 135. Also notified that no cardiology on the case. Will continue plan of care. Will closely monitor the patient.
--- NOTE | 2019-01-11 14:33 | NUR ---
NURSE NOTES: Notified Dr. Wallis regarding atrial fibrillation with heart rate ranged from 81 to 135. Also notified that no cardiology on the case. Will continue plan of care.
--- NOTE | 2019-01-11 14:54 | NUR ---
NURSE NOTES: Dr. May is consulted for uncontrolled atrial fibrillation per Dr. Wallis's order. Will continue plan of care.
--- NOTE | 2019-01-11 14:59 | Cardiac Electrophysiology PN ---
Subjective Subjective [id number] Objective Last 24 Hour Vital Signs Date Time Temp Pulse Resp B/P (MAP) Pulse Ox O2 Delivery O2 Flow Rate FiO2 01/11/19 12:00 135 01/11/19 12:00 97.3 103 18 118/69 (85) 95 01/11/19 09:02 82 136/83 01/11/19 09:00 Room Air Room Air 01/11/19 08:00 104 01/11/19 08:00 98.6 82 18 136/83 (100) 97 01/11/19 04:00 96 01/11/19 04:00 97.9 105 19 132/69 (90) 95 01/11/19 00:00 132 01/11/19 00:00 97.6 100 19 138/93 (108) 97 01/10/19 21:00 Room Air 01/10/19 20:00 95 01/10/19 20:00 97.1 99 20 119/90 (100) 97 01/10/19 16:00 83 Intake and Output 01/10/19 01/11/19 19:00 07:00 Intake Total 120 ml Balance 120 ml Intake Oral 120 ml # Voids 2 Armin May MD Jan 11, 2019 14:59
[2019-01-11] MEDS ORDERED: Digoxin 0.5mg/2ml Inj IVP SCH (15:00)
--- NOTE | 2019-01-11 15:12 | Hematology/Onc Progress Note ---
Assessment/Plan Assessment/Plan # Anemia of chronic disease due to underlying chronic medical issues, multifactorial --> Anemia workup has been reviewed. Ferritin 83, TIBC 242 --> No evidence of hemolysis is noted, peripheral smear has been reviewed. --> Hgb goal >7. Transfuse prn. --> Epogen or iron at this time is not particularly indicated --> Medications have been reviewed --> hgb trend 14.1-->12.5--> 12.3-->11-->11.2-->10-->14.1 --> still has been refusing labs AGAIN # Thrombocytopenia - potential causes multifactorial, evaluate liver and viral etiologies to begin, also could be related to underlying medications patient has received. --> Hep panel and HIV on PRIOR admission was negative --> US abd negative for cirrhosis and hsm --> Peripheral smear ordered to evaluate for blasts/schistocytes, none noted --> abx and other meds have been reviewed (one contributor could be depakote) --> ok for ppx if plt >50k w/ either heparin or lovenox --> Plt trend 118-->169k-->187k--> 102K->133k-->154k-->182k-->258 # FTT with decreased bmi on admission --> began on mirtazapine, to continue at this time --> daily weight and monitor # Atelectasis, optimize pulmonary hygiene/mobilize as tolerated --> on cxr appears stable --> per pulm recs # Paroxysmal AFib, per cardiology recs--> on noac --> on eliquis (ok to continue) --> dig per Dr. May --> trop as needed # Hypertension --> controlled, sbp goal <140 --> as per cards # Hypothyroidism --> Synthroid po to continue # Lactic acidosis --> has resolved # MACARENA which has resolved --> per renal care # Placement pending --> rehab, and pt/ot --> difficult with placement with insurance --> daily dw cms The timing of this note does not necessarily reflect the time of the patient was seen. Greatly appreciate consultation! Subjective Constitutional: Denies: no symptoms, chills, fever, malaise, weakness, other HEENT: Denies: no symptoms, eye pain, blurred vision, tearing, double vision, ear pain, ear discharge, nose pain, nose congestion, throat pain, throat swelling, mouth pain, mouth swelling, other Cardiovascular: Denies: no symptoms, chest pain, edema, irregular heart rate, lightheadedness, palpitations, syncope, other Respiratory: Denies: no symptoms, cough, shortness of breath, SOB with excertion, SOB at rest, sputum, wheezing, other Gastrointestinal/Abdominal: Denies: no symptoms, abdomen distended, abdominal pain, black stools, tarry stools, blood in stool, constipated, diarrhea, difficulty swallowing, nausea, poor appetite, poor fluid intake, rectal bleeding , vomiting, other Genitourinary: Denies: no symptoms, burning, discharge, frequency, flank pain, hematuria, incontinence, pain, urgency, other Neurologic/Psychiatric: Denies: no symptoms, anxiety, depressed, emotional problems, headache, numbness, paresthesia, pre-existing deficit, seizure, tingling, tremors, weakness, other Allergies: Coded Allergies: RISPERIDONE (Unverified Allergy, Unknown, 07/04/18) ZIPRASIDONE (Verified Allergy, Unknown, 06/30/18) Subjective 11/06: Pt resting in bed. No acute distress. DC planning. 11/08: Pt asleep in bed. No acute events. 11/10: Pt stable, no signs of acute distress or SOB. Venous duplex negative. 11/11: Pt resting in bed. Afebrile, no sob. MRI brain pending. 11/12: Pt in bed, sleeping. No respiratory distress noted. DC planning. 11/13: Pt awake and alert, refused morning meds. No signs of SOB or pain observed. Plt count significantly improved overnight. 11/15: Pt denies pain, no complaints of dyspnea 11/17: Pt resting in bed no chest pain or dyspnea, no other complaints 11/18: unable to place picc given do not have consent 11/20: no acute events reported. 11/21: pt refused am labs as well as am meds. h/h stable from prior labs. 11/22: pt no acute distress. Afebrile, VS reviewed. 11/23: no events reported, no f/c noted 11/24: refusing to participate in exam, labs have been reviewed 11/25: eating ensure this am, discharge planning pending, dw CM 11/26: on noac, continues, no bleeding, hgb is 11.2 11/27: refusing labs this am, discussed with him importance 11/28: resting comfortably, no acute events, no bleeding reported, no night sweats 11/29: no events, no bleeding reported, no night sweats 11/30: no events, no bleeding, no chills, no major night sweats 12/01: getting rehab, pt/ot as needed, no f/c 12/02: walking around the priest with a FWW, says feeling better 12/03: given ativan overnight, feeling better 12/04: awake and alert, no acute events, placement pending 12/05: awake and alert, resting in bed, no acute events. 12/06: anxious and aggravated, vs stable, placement pending per telephonic case manager 12/07: no events to report, no f/c, no night sweats refusing po, will start on mirtazpine 12/08: no events noted, no f/c, no night sweats, no bleeding noted 12/09: no events, eating breakfast, cbc again reordered 12/10: no fevers or chills noted, no bleeding, no events, pending placement 12/11: walking around in hallway, no complaints, eating 12/12: labs reviewed, cbc still refusing in the am 12/13: asleep, still refusing labs, no fc 12/14: no events noted, no bleeding, no fc 12/15: not agitated, sinemet has been started per neuro 12/16: dc when public guardian raises money 12/17: dc planning as early as today, alert no complaints this am 12/18: no f/c, no night sweats, no bleeding noted 12/20: is on eliquis, sleeping, i woke him up, again refusing cbc 12/21: no bleeding, no chill, no night sweats, examined with rn, refusing to be seen 12/22: no events to report, no bleeding, no f/c 12/23: on eliquis, has been refusing POs, refusing exam too 12/24: sleeping, arousable, no major events 12/25: no events no bleeding, no chills noted, refusing again exam, and labs 12/27: pending placement, no new recs, no f/c noted, no bleeding 12/28: no fevers or chills noted, no bleeding, still refusing lab draws 12/29: recommended he have labs drawn, he refused 12/30: sergio again reordered labs, he says wont do them 12/31: pending placement, no f/c, no night sweats, dw cm 01/01: no events, no bleeding, sleeping comfortably in bed 01/04: no overnight events, no seizures, pending placement 01/05: no events, on eliquis to continue at this time 01/06: ao x2, no signs of respiratory distress, no fever, labs refused 01/07: cardizem was given as bp was high, still refusing labs at this time 01/08: cbc reviewed, on apixaban and diltiazem, plt count improved 01/10: overall feeling better, laying in bed, labs reviewed, bp better 01/11: with uncontrolled afib, given trop check and dig with Toluie Objective Objective Current Medications Medications (Trade) Dose Ordered Sig/Eduardo Route PRN Reason Start Time Stop Time Status Last Admin Dose Admin Apixaban (Eliquis) 5 mg BID ORAL 01/09/19 09:00 02/08/19 08:59 01/11/19 09:03 Digoxin (Lanoxin) 0.25 mg DAILY ORAL 01/12/19 09:00 02/11/19 08:59 Digoxin (Lanoxin) 0.5 mg ONCE IVP 01/11/19 15:00 01/11/19 16:00 Diltiazem HCl (Cardizem CD) 240 mg DAILY ORAL 01/09/19 09:00 02/08/19 08:59 01/11/19 09:02 Levothyroxine Sodium (Synthroid) 25 mcg DAILY@0630 ORAL 01/09/19 06:30 02/08/19 06:29 01/10/19 06:15 Olanzapine (ZyPREXA) 30 mg QHS ORAL 01/09/19 21:00 02/08/19 20:59 01/10/19 20:39 Quetiapine Fumarate (SEROquel) 50 mg Q12HR PRN ORAL for agitation 01/09/19 08:45 02/08/19 08:44 01/10/19 20:39 Last 24 Hour Vital Signs Date Time Temp Pulse Resp B/P (MAP) Pulse Ox O2 Delivery O2 Flow Rate FiO2 01/11/19 12:00 135 01/11/19 12:00 97.3 103 18 118/69 (85) 95 01/11/19 09:02 82 136/83 01/11/19 09:00 Room Air Room Air 01/11/19 08:00 104 01/11/19 08:00 98.6 82 18 136/83 (100) 97 01/11/19 04:00 96 01/11/19 04:00 97.9 105 19 132/69 (90) 95 01/11/19 00:00 132 01/11/19 00:00 97.6 100 19 138/93 (108) 97 01/10/19 21:00 Room Air 01/10/19 20:00 95 01/10/19 20:00 97.1 99 20 119/90 (100) 97 01/10/19 16:00 83 01/10/19 12:00 97.2 83 18 126/78 (94) 98 01/10/19 12:00 81 01/10/19 09:36 84 135/78 01/10/19 09:00 Room Air 01/10/19 08:00 84 01/10/19 08:00 97.8 70 20 135/78 (97) 100 01/10/19 04:00 97.3 72 18 120/75 (90) 99 01/10/19 04:00 72 01/10/19 01:00 90 01/10/19 00:00 92 01/10/19 00:00 98.0 89 20 134/66 (88) 96 01/09/19 21:00 Room Air 01/09/19 20:00 92 01/09/19 20:00 97.8 107 18 147/92 (110) 97 01/09/19 16:00 86 01/09/19 16:00 99.0 84 18 107/73 (84) 97 Intake and Output 01/10/19 01/11/19 19:00 07:00 Intake Total 120 ml Balance 120 ml Intake Oral 120 ml # Voids 2 Height (Feet): 5 Height (Inches): 6.00 Weight (Pounds): 121 Objective PE: VITAL SIGNS: Have been reviewed. CHEST: Clear to auscultation. CV: Regular rate and rhythm. No murmurs or extra sounds. GASTROINTESTINAL: Soft, nontender, and nondistended. No organomegaly. EXTREMITIES: No edema. Moves all four extremities. NEUROLOGIC: Sensory intact to light touch. Reflexes are equal on both sides. Bennie Goss MD Jan 11, 2019 15:12
[2019-01-11 16:00] VITALS: BP 136/90
--- NOTE | 2019-01-11 16:37 | NUR ---
NURSE NOTES: Dr. May ordered one time dose of Digoxin IVP and PO from next day. Carried out the order. Will continue plan of care.
--- NOTE | 2019-01-11 17:02 | General Progress Note ---
Assessment/Plan Status: stable, unchanged Assessment/Plan: Assessment/Plan Status: stable, unchanged Assessment/Plan: 63 y/o man with hx of paroxysmal atrial fibrillation, presented to the hospital with pre-syncope, found to have rapid atrial fibrillation. Patient was admitted with a long hospital course. Initially he was found to be in A. fib with RVR was consulted by cardiology. Echocardiogram was unremarkable with normal EF. Patient has been titrated on several medications for heart rate control and is currently on diltiazem 240 mg p.o. daily. Patient was also continued on Eliquis for stroke prevention given past medical history. Patient was continued on levothyroxine however given his most recent results of his dose was changed from 50 MCG to 25 MCG daily. Patient has been stable and medically cleared for discharge for many days. He has now been accepted at an assisted living facility called [facility] in [facility]. # Disposition Patient discharged to assisted facility on 01/08/19 and returned after denial. Patient pending placement. #tachycardia 2/2 afib, non-controlled -Patient with A. fib with RVR -Continue diltiazem 240 mg p.o. daily. - EP consultation with Dr. Alberts today for persistent AF in the 140-150 bpm range.Digoxin added. - Previously seen by Dr. Wagner from cardioogy ( last admission) Difficult placement. Per leather case finisher no insurance available. [facility]. Need to continue efforts by CM and SW to place. WENDY spoke with Daily Sequeira [phone] who states Veronica spoke with SSI and patient' s SSI will be reinstated December 17. WENDY inquired about placement. Daily indicted she will contact various board and cares but could not guarantee she would locate placement due to patient currently not having income. ( PER DISCUSSION WITH RN, CURRENT CONSERVATOR MANAGES THE PATIENT'S MONEY) WENDY updated CM. Will continue to follow up. # Hypotension- resolved - Monitor BP #Paroxysmal Atrial Fibrillation #Atrial fibrillation with RVR, controlled - Cont beta zack and Diltiazem for rate control - holding parameters. - Cont NOAC.. - echo did not show any remarkable changes - Apprec cardiology recs #Anemia due to chronic illness #Thrombocytopenia, resolved - Hgb and platelet count appeared to be at baseline, seen by Hematology, no new changes recommended. Labs stable. #unstable gait -continue PT #Behavorial disorder -psych meds restarted -psychiatry consulted Medically stable for discharge when placement is approved. Time of note may not reflect my encounter Subjective ROS Limited/Unobtainable: Yes Allergies: Coded Allergies: RISPERIDONE (Unverified Allergy, Unknown, 07/04/18) ZIPRASIDONE (Verified Allergy, Unknown, 06/30/18) All Systems: reviewed and negative except above Objective Last 24 Hour Vital Signs Date Time Temp Pulse Resp B/P (MAP) Pulse Ox O2 Delivery O2 Flow Rate FiO2 01/11/19 16:00 117 01/11/19 15:29 149 01/11/19 12:00 135 01/11/19 12:00 97.3 103 18 118/69 (85) 95 01/11/19 09:02 82 136/83 01/11/19 09:00 Room Air Room Air 01/11/19 08:00 104 01/11/19 08:00 98.6 82 18 136/83 (100) 97 01/11/19 04:00 96 01/11/19 04:00 97.9 105 19 132/69 (90) 95 01/11/19 00:00 132 01/11/19 00:00 97.6 100 19 138/93 (108) 97 01/10/19 21:00 Room Air 01/10/19 20:00 95 01/10/19 20:00 97.1 99 20 119/90 (100) 97 Intake and Output 01/10/19 01/11/19 19:00 07:00 Intake Total 120 ml Balance 120 ml Intake Oral 120 ml # Voids 2 Height (Feet): 5 Height (Inches): 6.00 Weight (Pounds): 121 EENT: PERRL/EOMI Neck: non-tender Cardiovascular: regularly irregular, tachycardia, irregularly irregular Respiratory/Chest: chest wall non-tender Abdomen: non tender Neurologic: gun stocker II-XII grossly normal Galo Wallis MD Jan 11, 2019 17:02
--- NOTE | 2019-01-11 18:02 | General Progress Note ---
Assessment/Plan Status: stable, unchanged Assessment/Plan: 63 y/o man with hx of paroxysmal atrial fibrillation, presented to the hospital with pre-syncope, found to have rapid atrial fibrillation. Patient was admitted with a long hospital course. Initially he was found to be in A. fib with RVR was consulted by cardiology. Echocardiogram was unremarkable with normal EF. Patient has been titrated on several medications for heart rate control and is currently on diltiazem 240 mg p.o. daily. Patient was also continued on Eliquis for stroke prevention given past medical history. Patient was continued on levothyroxine however given his most recent results of his dose was changed from 50 MCG to 25 MCG daily. Patient has been stable and medically cleared for discharge for many days. He has now been accepted at an assisted living facility called [facility] in [facility]. Patient is discharged today with printed prescriptions to be taken with him to next facility. # Disposition Patient discharged to assisted facility on 01/08 09/04 and returned after denial. Patient pending placement. Patient is medically cleared for discharge. #tachycardia 2/2 afib, non-controlled -Patient with A. fib -Continue diltiazem 240 mg p.o. daily -Check TSH, free T4, CBC, BMP, UA for other possible causes of tachycardia: T4 elevated, decrease levothyroxine from 50 MCG to 25 MCG Difficult placement. Per medical case manager no insurance available. [facility] reported [facility]. Need to continue efforts by CM and WENDY to place. WENDY spoke with Daily Sequeira [phone] who states Veronica spoke with SSI and patient' s SSI will be reinstated December 17. WENDY inquired about placement. Daily indicted she will contact various board and cares but could not guarantee she would locate placement due to patient currently not having income. ( PER DISCUSSION WITH RN, CURRENT CONSERVATOR MANAGES THE PATIENT'S MONEY) WENDY updated CM. Will continue to follow up. # Hypotension- resolved - Monitor BP #Paroxysmal Atrial Fibrillation #Atrial fibrillation with RVR, controlled - Cont beta zack and Diltiazem for rate control - holding parameters. - Cont NOAC.. - echo did not show any remarkable changes - Apprec cardiology recs #Anemia due to chronic illness #Thrombocytopenia, resolved - Hgb and platelet count appeared to be at baseline, seen by Hematology, no new changes recommended. Labs stable. #unstable gait -continue PT - PATIENT WILL NEED TO BE WITHOUT FWW in order to return to his [facility]. Recommend DC to assisted living facility at DC per PT final report. Otherwise, will need new placement. accounting manager assistant controller follow up is needed. SW note for conservator reviewed. I DO NOT UNDERSTAND WHY THE CONSERVATOR REFUSED TO PLACE THE PATIENT BACK TO HIS NURSING HOME - per discussion with RN. NEED TO HAVE SW follow up on this DAVID. ? Formal complain for conservator and request new conservator vs other legal action. #Behavorial disorder -psych meds restarted -psychiatry consulted Medically stable for discharge when placement is approved. Time of note may not reflect my encounter Subjective Date patient seen: Jan 10, 2019 Allergies: Coded Allergies: RISPERIDONE (Unverified Allergy, Unknown, 07/04/18) ZIPRASIDONE (Verified Allergy, Unknown, 06/30/18) Subjective hr controlled patient is asymptomatic Objective Last 24 Hour Vital Signs Date Time Temp Pulse Resp B/P (MAP) Pulse Ox O2 Delivery O2 Flow Rate FiO2 01/11/19 16:00 97.5 120 18 136/90 (105) 95 01/11/19 16:00 117 01/11/19 15:29 149 01/11/19 12:00 135 01/11/19 12:00 97.3 103 18 118/69 (85) 95 01/11/19 09:02 82 136/83 01/11/19 09:00 Room Air Room Air 01/11/19 08:00 104 01/11/19 08:00 98.6 82 18 136/83 (100) 97 01/11/19 04:00 96 01/11/19 04:00 97.9 105 19 132/69 (90) 95 01/11/19 00:00 132 01/11/19 00:00 97.6 100 19 138/93 (108) 97 01/10/19 21:00 Room Air 01/10/19 20:00 95 01/10/19 20:00 97.1 99 20 119/90 (100) 97 Intake and Output 01/10/19 01/11/19 19:00 07:00 Intake Total 120 ml Balance 120 ml Intake Oral 120 ml # Voids 2 Height (Feet): 5 Height (Inches): 6.00 Weight (Pounds): 121 Objective GEN: WWN, NAD, Alert CV: Tachycardia, no murmurs rubs or gallops RESP: CTAB, no w/r/c ABD: normal bowel sounds, soft, non tender EXT: normal muscle tone, no tenderness NEURO: At baseline with no changes Oriana Jalloh DO Jan 11, 2019 18:02
--- NOTE | 2019-01-11 18:35 | NUR ---
NURSE NOTES: The patient is stable without acute distress or shortness of breath. The patient's heart rate dropped to 101.
--- NOTE | 2019-01-11 18:37 | NUR ---
NURSE NOTES: The patient is on bilateral soft wrist restraints per order and circulation is intact. Will continue plan of care.
--- NOTE | 2019-01-11 19:44 | NUR ---
HAND-OFF: Report given to ELLA Alicea. The patient is resting on the bed without acute distress or shortness of breath. The patient's bed in the lowest position, call light in reach, and fall and aspiration precaution reinforced. Circulation intact with bilateral soft restraints. Endorsed plan of care.
--- NOTE | 2019-01-11 19:45 | NUR ---
Got report from Karen JARAMILLO. Pt in stable condition. Denies any pain. No s/s of distress or discomfort noted. Pt resting in bed comfortably. Bed in low and locked position, call light within reach, bedside table within reach. Continue to monitor
[2019-01-11 20:00] VITALS: BP 116/78
[2019-01-11] MEDS: OLANZapine 10mg tab ORAL SCH (21:06)
[2019-01-12] VITALS: BP 135/90
[2019-01-12 04:00] VITALS: BP 121/88
[2019-01-12] MEDS: Levothyroxine 25mcg tab ORAL SCH (06:05)
--- NOTE | 2019-01-12 07:00 | NUR ---
HAND-OFF: Report given to Mae JARAMILLO. Endorsed plan of care.
--- NOTE | 2019-01-12 07:05 | NUR ---
NURSE NOTES: Received report from ELLA Arroyo. resting in the bed appeared confused, trying to get out of bed, repositioned and reoriented patient. Denies any pain, no acute distress or shortness of breath noted. Bed is in the lowest position, call light in reach, fall and aspiration precaution reinforced. IV site on right hand 22G intact and patent. The patient is on bilateral soft restraints, and the circulation is intact. Will continue with the plan of care.
[2019-01-12 08:00] VITALS: BP 154/99
[2019-01-12] MEDS: dilTIAZem HCl CD 240mg cap ORAL SCH (08:38)
[2019-01-12] MEDS: Eliquis 5mg tablet ORAL SCH ×2 (08:39→18:01)
--- NOTE | 2019-01-12 11:55 | General Progress Note ---
Assessment/Plan Status: stable, unchanged Assessment/Plan: Assessment/Plan Status: stable, unchanged 63 y/o man with hx of paroxysmal atrial fibrillation, presented to the hospital with pre-syncope, found to have rapid atrial fibrillation. Patient was admitted with a long hospital course. Initially he was found to be in A. fib with RVR was consulted by cardiology. Echocardiogram was unremarkable with normal EF. Patient has been titrated on several medications for heart rate control and is currently on diltiazem 240 mg p.o. daily. Patient was also continued on Eliquis for stroke prevention given past medical history. Patient was continued on levothyroxine however given his most recent results of his dose was changed from 50 MCG to 25 MCG daily. Patient has been stable and medically cleared for discharge for many days. He has now been accepted at an assisted living facility called [facility] in [facility]. # Disposition Patient discharged to assisted facility on 01/08/19 and returned after denial. Patient pending placement. #tachycardia 2/2 afib, non-controlled on 01/11/19 -Patient with A. fib with RVR now improved to NSR -Continue diltiazem 240 mg p.o. daily. - EP consultation with Dr. Alberts 01/11 for persistent AF in the 140-150 bpm range.Digoxin added with good response. - Previously seen by Dr. Wagner from cardiology ( last admission) Difficult placement. Per pillowcase turner no insurance available. [facility] notes reported [facility]. Need to continue efforts by CM and SW to place. # Hypotension- resolved - Monitor BP #Paroxysmal Atrial Fibrillation #Atrial fibrillation with RVR, controlled - Cont beta zack and Diltiazem for rate control - holding parameters. - Cont NOAC.. - echo did not show any remarkable changes - Apprec cardiology recs #Anemia due to chronic illness #Thrombocytopenia, resolved - Hgb and platelet count appeared to be at baseline, seen by Hematology, no new changes recommended. Labs stable. #unstable gait -continue PT #Behavorial disorder -psych meds restarted -psychiatry consulted Time of note may not reflect my encounter Subjective ROS Limited/Unobtainable: Yes Allergies: Coded Allergies: RISPERIDONE (Unverified Allergy, Unknown, 07/04/18) ZIPRASIDONE (Verified Allergy, Unknown, 06/30/18) All Systems: reviewed and negative except above Objective Last 24 Hour Vital Signs Date Time Temp Pulse Resp B/P (MAP) Pulse Ox O2 Delivery O2 Flow Rate FiO2 01/12/19 09:00 Room Air Room Air 01/12/19 08:38 84 01/12/19 08:38 84 154/99 01/12/19 08:00 93 01/12/19 08:00 97.5 84 154/99 (117) 01/12/19 04:00 86 01/12/19 04:00 97.0 89 18 121/88 (99) 97 01/12/19 00:00 93 01/12/19 00:00 97.9 85 18 135/90 (105) 97 01/11/19 21:00 Room Air Room Air 01/11/19 20:00 90 01/11/19 20:00 98.2 98 18 116/78 (91) 98 01/11/19 16:00 97.5 120 18 136/90 (105) 95 01/11/19 16:00 117 01/11/19 15:29 149 01/11/19 12:00 135 01/11/19 12:00 97.3 103 18 118/69 (85) 95 Intake and Output 01/11/19 01/12/19 19:00 07:00 Intake Total 780 ml Balance 780 ml Intake Oral 780 ml # Voids 4 4 Height (Feet): 5 Height (Inches): 6.00 Weight (Pounds): 121 General Appearance: no apparent distress, other - somnolent EENT: PERRL/EOMI Cardiovascular: regular rhythm, other - NSR today Abdomen: normal bowel sounds Neurologic: facility attendant II-XII grossly normal Galo Wallis MD Jan 12, 2019 11:55
[2019-01-12 12:00] VITALS: BP 117/74
--- NOTE | 2019-01-12 12:04 | Cardiac Electrophysiology PN ---
Assessment/Plan Assessment/Plan 1. PAF with RVR based on ECG on 01/02, 01/07, 01/09 and 01/10/19. HR up to 160s. Converted to SR today on Dig 0.25 daily and Cardizem CD 240. Add Amiodarone 400 bid to keep in SR. Will Decrease Dig to 0.125 tomorrow. Continue Eliquis 2. HTN On Cardizem CD 240 3. Dementia 4. Behavioral disorder DW Dr Wallis Subjective Subjective HR better in atrial fib. No CP or SOB. Objective Last 24 Hour Vital Signs Date Time Temp Pulse Resp B/P (MAP) Pulse Ox O2 Delivery O2 Flow Rate FiO2 01/12/19 09:00 Room Air Room Air 01/12/19 08:38 84 01/12/19 08:38 84 154/99 01/12/19 08:00 93 01/12/19 08:00 97.5 84 154/99 (117) 01/12/19 04:00 86 01/12/19 04:00 97.0 89 18 121/88 (99) 97 01/12/19 00:00 93 01/12/19 00:00 97.9 85 18 135/90 (105) 97 01/11/19 21:00 Room Air Room Air 01/11/19 20:00 90 01/11/19 20:00 98.2 98 18 116/78 (91) 98 01/11/19 16:00 97.5 120 18 136/90 (105) 95 01/11/19 16:00 117 01/11/19 15:29 149 Intake and Output 01/11/19 01/12/19 19:00 07:00 Intake Total 780 ml Balance 780 ml Intake Oral 780 ml # Voids 4 4 Objective General Appearance: no apparent distress, other - somnolent EENT: PERRL/EOMI Cardiovascular: RRR Abdomen: normal bowel sounds Neurologic: senior rd engineer II-XII grossly normal Armin May MD Jan 12, 2019 12:04
--- NOTE | 2019-01-12 12:29 | Hematology/Onc Progress Note ---
Assessment/Plan Assessment/Plan # Anemia of chronic disease due to underlying chronic medical issues, multifactorial --> Anemia workup has been reviewed. Ferritin 83, TIBC 242 --> No evidence of hemolysis is noted, peripheral smear has been reviewed. --> Hgb goal >7. Transfuse prn. --> Epogen or iron at this time is not particularly indicated --> Medications have been reviewed --> hgb trend 14.1-->12.5--> 12.3-->11-->11.2-->10-->14.1 --> still has been refusing labs AGAIN # Thrombocytopenia - potential causes multifactorial, evaluate liver and viral etiologies to begin, also could be related to underlying medications patient has received. --> Hep panel and HIV on PRIOR admission was negative --> US abd negative for cirrhosis and hsm --> Peripheral smear ordered to evaluate for blasts/schistocytes, none noted --> abx and other meds have been reviewed (one contributor could be depakote) --> ok for ppx if plt >50k w/ either heparin or lovenox --> Plt trend 118-->169k-->187k--> 102K->133k-->154k-->182k-->258 # FTT with decreased bmi on admission --> began on mirtazapine, to continue at this time --> daily weight and monitor # Atelectasis, optimize pulmonary hygiene/mobilize as tolerated --> on cxr appears stable --> per pulm recs # Paroxysmal AFib, per cardiology recs--> on noac --> on eliquis (ok to continue) --> dig per Dr. May --> trop as needed # Hypertension --> controlled, sbp goal <140 --> as per cards # Hypothyroidism --> Synthroid po to continue # Lactic acidosis --> has resolved # MACARENA which has resolved --> per renal care # Placement pending --> rehab, and pt/ot --> difficult with placement with insurance --> daily dw cms The timing of this note does not necessarily reflect the time of the patient was seen. Greatly appreciate consultation! Subjective Allergies: Coded Allergies: RISPERIDONE (Unverified Allergy, Unknown, 07/04/18) ZIPRASIDONE (Verified Allergy, Unknown, 06/30/18) Subjective 11/06: Pt resting in bed. No acute distress. DC planning. 11/08: Pt asleep in bed. No acute events. 11/10: Pt stable, no signs of acute distress or SOB. Venous duplex negative. 11/11: Pt resting in bed. Afebrile, no sob. MRI brain pending. 11/12: Pt in bed, sleeping. No respiratory distress noted. DC planning. 11/13: Pt awake and alert, refused morning meds. No signs of SOB or pain observed. Plt count significantly improved overnight. 11/15: Pt denies pain, no complaints of dyspnea 11/17: Pt resting in bed no chest pain or dyspnea, no other complaints 11/18: unable to place picc given do not have consent 11/20: no acute events reported. 11/21: pt refused am labs as well as am meds. h/h stable from prior labs. 11/22: pt no acute distress. Afebrile, VS reviewed. 11/23: no events reported, no f/c noted 11/24: refusing to participate in exam, labs have been reviewed 11/25: eating ensure this am, discharge planning pending, dw CM 11/26: on noac, continues, no bleeding, hgb is 11.2 11/27: refusing labs this am, discussed with him importance 11/28: resting comfortably, no acute events, no bleeding reported, no night sweats 11/29: no events, no bleeding reported, no night sweats 11/30: no events, no bleeding, no chills, no major night sweats 12/01: getting rehab, pt/ot as needed, no f/c 12/02: walking around the priest with a FWW, says feeling better 12/03: given ativan overnight, feeling better 12/04: awake and alert, no acute events, placement pending 12/05: awake and alert, resting in bed, no acute events. 12/06: anxious and aggravated, vs stable, placement pending per case liner 12/07: no events to report, no f/c, no night sweats refusing po, will start on mirtazpine 12/08: no events noted, no f/c, no night sweats, no bleeding noted 12/09: no events, eating breakfast, cbc again reordered 12/10: no fevers or chills noted, no bleeding, no events, pending placement 12/11: walking around in hallway, no complaints, eating 12/12: labs reviewed, cbc still refusing in the am 12/13: asleep, still refusing labs, no fc 12/14: no events noted, no bleeding, no fc 12/15: not agitated, sinemet has been started per neuro 12/16: dc when public guardian raises money 12/17: dc planning as early as today, alert no complaints this am 12/18: no f/c, no night sweats, no bleeding noted 12/20: is on eliquis, sleeping, i woke him up, again refusing cbc 12/21: no bleeding, no chill, no night sweats, examined with rn, refusing to be seen 12/22: no events to report, no bleeding, no f/c 12/23: on eliquis, has been refusing POs, refusing exam too 12/24: sleeping, arousable, no major events 12/25: no events no bleeding, no chills noted, refusing again exam, and labs 12/27: pending placement, no new recs, no f/c noted, no bleeding 12/28: no fevers or chills noted, no bleeding, still refusing lab draws 12/29: recommended he have labs drawn, he refused 12/30: sergio again reordered labs, he says wont do them 12/31: pending placement, no f/c, no night sweats, dw cm 01/01: no events, no bleeding, sleeping comfortably in bed 01/04: no overnight events, no seizures, pending placement 01/05: no events, on eliquis to continue at this time 01/06: ao x2, no signs of respiratory distress, no fever, labs refused 01/07: cardizem was given as bp was high, still refusing labs at this time 01/08: cbc reviewed, on apixaban and diltiazem, plt count improved 01/10: overall feeling better, laying in bed, labs reviewed, bp better 01/11: with uncontrolled afib, given trop check and dig with Toluie 01/12: awake and confused, on bilat wrist restraints, on eliquis Objective Objective Current Medications Medications (Trade) Dose Ordered Sig/Eduardo Route PRN Reason Start Time Stop Time Status Last Admin Dose Admin Amiodarone HCl (Cordarone) 400 mg EVERY 12 HOURS ORAL 01/12/19 21:00 02/11/19 20:59 Apixaban (Eliquis) 5 mg BID ORAL 01/09/19 09:00 02/08/19 08:59 01/12/19 08:39 Digoxin (Lanoxin) 0.25 mg DAILY ORAL 01/12/19 09:00 02/11/19 08:59 01/12/19 08:38 Diltiazem HCl (Cardizem CD) 240 mg DAILY ORAL 01/09/19 09:00 02/08/19 08:59 01/12/19 08:38 Levothyroxine Sodium (Synthroid) 25 mcg DAILY@0630 ORAL 01/09/19 06:30 02/08/19 06:29 01/10/19 06:15 Lorazepam (Ativan 2mg/ml 1ml) 1 mg Q4H PRN IV For Anxiety 01/12/19 08:00 01/19/19 07:59 Olanzapine (ZyPREXA) 30 mg QHS ORAL 01/09/19 21:00 02/08/19 20:59 01/11/19 21:06 Quetiapine Fumarate (SEROquel) 50 mg Q12HR PRN ORAL for agitation 01/09/19 08:45 02/08/19 08:44 01/11/19 21:06 Last 24 Hour Vital Signs Date Time Temp Pulse Resp B/P (MAP) Pulse Ox O2 Delivery O2 Flow Rate FiO2 01/12/19 09:00 Room Air Room Air 01/12/19 08:38 84 01/12/19 08:38 84 154/99 01/12/19 08:00 93 01/12/19 08:00 97.5 84 154/99 (117) 01/12/19 04:00 86 01/12/19 04:00 97.0 89 18 121/88 (99) 97 01/12/19 00:00 93 01/12/19 00:00 97.9 85 18 135/90 (105) 97 01/11/19 21:00 Room Air Room Air 01/11/19 20:00 90 8/26/19 20:00 98.2 98 18 116/78 (91) 98 01/11/19 16:00 97.5 120 18 136/90 (105) 95 01/11/19 16:00 117 01/11/19 15:29 149 01/11/19 12:00 135 01/11/19 12:00 97.3 103 18 118/69 (85) 95 01/11/19 09:02 82 136/83 01/11/19 09:00 Room Air Room Air 01/11/19 08:00 104 01/11/19 08:00 98.6 82 18 136/83 (100) 97 01/11/19 04:00 96 01/11/19 04:00 97.9 105 19 132/69 (90) 95 01/11/19 00:00 132 01/11/19 00:00 97.6 100 19 138/93 (108) 97 01/10/19 21:00 Room Air 01/10/19 20:00 95 01/10/19 20:00 97.1 99 20 119/90 (100) 97 01/10/19 16:00 83 Intake and Output 01/11/19 01/12/19 19:00 07:00 Intake Total 780 ml Balance 780 ml Intake Oral 780 ml # Voids 4 4 Height (Feet): 5 Height (Inches): 6.00 Weight (Pounds): 121 Objective PE: VITAL SIGNS: Have been reviewed. CHEST: Clear to auscultation. CV: Regular rate and rhythm. No murmurs or extra sounds. GASTROINTESTINAL: Soft, nontender, and nondistended. No organomegaly. EXTREMITIES: No edema. Moves all four extremities. NEUROLOGIC: Sensory intact to light touch. Reflexes are equal on both sides. Bennie Goss MD Jan 12, 2019 12:29
--- NOTE | 2019-01-12 12:58 | NUR ---
*-* INSURANCE *-* UPDATED CLINICALS HAVE BEEN FAXED TO: [facility] F:[phone]
[2019-01-12 16:00] VITALS: BP 136/75
--- NOTE | 2019-01-12 16:32 | NUR ---
CASE MANAGEMENT:REVIEW 01/11/19 SI: HYPOTENSION. AFIB W/RVR 97.0 88 18 136/75 97% ON RA IS: AMIODARONE PO Q`2 DEPAKOTE PO QHS DIGOXIN PO QD SYNTHROID PO QD ZYPREXA PO QD CARDIZEM PO QD ELIQUIS PO BID : TELEMETRY STATUS PATIENT WENT TO [facility] ON FRIDAY AND WAS IMMEDIATELY SENT BACK D/T BEHAVORIAL ISSUES
--- NOTE | 2019-01-12 16:56 | Consultation ---
DATE OF CONSULTATION: 01/11/2019 CARDIAC ELECTROPHYSIOLOGY CONSULTATION CONSULTING PHYSICIAN: Armin May M.D. REFERRING PHYSICIAN: Sharron Sargent M.D. REASON FOR CONSULTATION: Atrial fibrillation with rapid ventricular response. HISTORY OF PRESENT ILLNESS: The patient is a 63-year-old gentleman, who was admitted on 11/04/2018 for GI bleed. The patient also had atrial fibrillation with rapid ventricular response. His echocardiogram was unremarkable with normal left ventricular systolic function. The patient eventually was discharged on Cardizem 240 mg daily and Eliquis for stroke prevention yesterday. However, the patient was brought back to the hospital and was readmitted. Cardiac electrophysiology consultation was requested as the patient was in atrial fibrillation with heart rate up to 140s. REVIEW OF SYSTEMS: Negative other than what was mentioned in the history of present illness. PAST MEDICAL HISTORY: 1. Hypertension. 2. Hypothyroidism. 3. Atrial fibrillation. 4. Episodes of bradycardia. 5. Anemia and thrombocytopenia. 6. Behavior disorder on psych medications. MEDICATIONS: Discharge medications include Eliquis 5 mg twice a day, Cardizem CD 240 mg daily, Synthroid, and olanzapine. PHYSICAL EXAMINATION: VITAL SIGNS: Show blood pressure of 118/69, pulse 103, and respirations 18. Heart rate was up to 135 to 140s. HEAD AND NECK: Shows no JVD. LUNGS: Clear. CARDIOVASCULAR: Shows regular, S1 and S2 with no gallop or murmur. ABDOMEN: Soft. EXTREMITIES: No pitting edema. LABORATORY AND DIAGNOSTIC DATA: His labs show white count , hemoglobin 14.1, hematocrit 42.5, and platelet count 258,000. Sodium 140, potassium 3.9, BUN 22, creatinine 1.0, and glucose of 104. ASSESSMENT AND PLAN: 1. Atrial fibrillation with rapid ventricular response. The patient is already on Cardizem CD 240 mg daily in addition to Eliquis 5 mg b.i.d. I will give the patient 0.25 mg of IV digoxin, hopefully we will be able to control the rate with adding digoxin to his medical regimen. 2. Hypertension, on Cardizem CD 240 mg. 3. Hypothyroidism, on Synthroid. 4. Psychiatric disorder, on Seroquel and Zyprexa. Thank you very much for allowing me to participate in the care of this patient. Please do not hesitate to contact me for any questions regarding my evaluation. Armin May M.D. DR: STEVIE JOB#: [id number] CC:
--- NOTE | 2019-01-12 19:29 | NUR ---
HAND-OFF: Report given to ELLA Reza.
--- NOTE | 2019-01-12 19:38 | NUR ---
NURSE NOTES: Received report on pt from ELLA Wall. Pt is awake and resting in bed. IV site intact and patent. Bed locked in lowest position, bed light within reach. Will continue with plan of care.
[2019-01-12 20:00] VITALS: BP 143/90
[2019-01-12] MEDS: LORazepam Inj 2mg/ml 1ml IV PRN (20:22)
--- NOTE | 2019-01-12 22:00 | Progress Note ---
DATE: 01/12/2019 SUBJECTIVE: The patient is calm, sitting in bed. No behavior issues. The patient has been on Depakote in the past. However in the hospital he has not had any issues and is currently calm without any mood lability. The patient is cooperative with the staff, follows direction. He is currently on olanzapine. His insurance case manager recommended that the patient placed back on Depakote; therefore, I am going to order Depakote 500 mg at bedtime. MENTAL STATUS EXAMINATION: The patient is alert, able to answer the questions. Mood is neutral. Affect is flat. Thought process, there is a paucity of thought content. Thought content, no suicidal or homicidal ideation. Cognition is impaired. ASSESSMENT: Stable at baseline. PLAN: 1. We will start the patient on Depakote 500 at bedtime. 2. Zyprexa 30 mg in the morning. 3. Provide the patient with reality orientation and supportive therapy. Anna Mathew M.D. DR: Fuad JOB#: [id number] CC:
[2019-01-12] MEDS: Amiodarone 200mg tab ORAL SCH (22:03)
[2019-01-12] MEDS: Depakote ER 500mg tab ORAL SCH (22:03)
[2019-01-12] MEDS: OLANZapine 10mg tab ORAL SCH (22:03)
[2019-01-13] VITALS: BP 141/89
[2019-01-13 04:00] VITALS: BP 138/72
[2019-01-13] MEDS: Levothyroxine 25mcg tab ORAL SCH (06:41)
--- NOTE | 2019-01-13 07:25 | NUR ---
NURSE NOTES: Report received from ELLA Reza. Patient AOx3. In RA. Denies SOB or pain. Having breakfast. R H IV wrapped with gauze. Bed on lowest position, side rails upx3, brakes engaged, alarm on. Call light within easy reach.
--- NOTE | 2019-01-13 07:30 | NUR ---
HAND-OFF: Report given to ELLA Pagan. Endorsed plan of care.
[2019-01-13 08:00] VITALS: BP 145/89
--- NOTE | 2019-01-13 08:36 | Hematology/Onc Progress Note ---
Assessment/Plan Assessment/Plan # Anemia of chronic disease due to underlying chronic medical issues, multifactorial --> Anemia workup has been reviewed. Ferritin 83, TIBC 242 --> No evidence of hemolysis is noted, peripheral smear has been reviewed. --> Hgb goal >7. Transfuse prn. --> Epogen or iron at this time is not particularly indicated --> Medications have been reviewed --> hgb trend 14.1-->12.5--> 12.3-->11-->11.2-->10-->14.1 --> still has been refusing labs AGAIN # Thrombocytopenia - potential causes multifactorial, evaluate liver and viral etiologies to begin, also could be related to underlying medications patient has received. --> Hep panel and HIV on PRIOR admission was negative --> US abd negative for cirrhosis and hsm --> Peripheral smear ordered to evaluate for blasts/schistocytes, none noted --> abx and other meds have been reviewed (one contributor could be depakote) --> ok for ppx if plt >50k w/ either heparin or lovenox --> Plt trend 118-->169k-->187k--> 102K->133k-->154k-->182k-->258 # FTT with decreased bmi on admission --> began on mirtazapine, to continue at this time --> daily weight and monitor # Atelectasis, optimize pulmonary hygiene/mobilize as tolerated --> on cxr appears stable --> per pulm recs # Paroxysmal AFib, per cardiology recs--> on noac --> on eliquis (ok to continue) --> dig per Dr. May # Hypertension --> controlled, sbp goal <140 --> as per cards # Hypothyroidism --> Synthroid po to continue # Lactic acidosis --> has resolved # MACARENA which has resolved --> per renal care # Psych d/o --> per psych on depak, zyprexa # Placement pending --> rehab, and pt/ot --> difficult with placement with insurance --> daily dw cms The timing of this note does not necessarily reflect the time of the patient was seen. Greatly appreciate consultation! Subjective Constitutional: Denies: no symptoms, chills, fever, malaise, weakness, other Respiratory: Denies: no symptoms, cough, shortness of breath, SOB with excertion, SOB at rest, sputum, wheezing, other Gastrointestinal/Abdominal: Denies: no symptoms, abdomen distended, abdominal pain, black stools, tarry stools, blood in stool, constipated, diarrhea, difficulty swallowing, nausea, poor appetite, poor fluid intake, rectal bleeding , vomiting, other Genitourinary: Denies: no symptoms, burning, discharge, frequency, flank pain, hematuria, incontinence, pain, urgency, other Neurologic/Psychiatric: Denies: no symptoms, anxiety, depressed, emotional problems, headache, numbness, paresthesia, pre-existing deficit, seizure, tingling, tremors, weakness, other Allergies: Coded Allergies: RISPERIDONE (Unverified Allergy, Unknown, 07/04/18) ZIPRASIDONE (Verified Allergy, Unknown, 06/30/18) Subjective 11/06: Pt resting in bed. No acute distress. DC planning. 11/08: Pt asleep in bed. No acute events. 11/10: Pt stable, no signs of acute distress or SOB. Venous duplex negative. 11/11: Pt resting in bed. Afebrile, no sob. MRI brain pending. 11/12: Pt in bed, sleeping. No respiratory distress noted. DC planning. 11/13: Pt awake and alert, refused morning meds. No signs of SOB or pain observed. Plt count significantly improved overnight. 11/15: Pt denies pain, no complaints of dyspnea 11/17: Pt resting in bed no chest pain or dyspnea, no other complaints 11/18: unable to place picc given do not have consent 11/20: no acute events reported. 11/21: pt refused am labs as well as am meds. h/h stable from prior labs. 11/22: pt no acute distress. Afebrile, VS reviewed. 11/23: no events reported, no f/c noted 11/24: refusing to participate in exam, labs have been reviewed 11/25: eating ensure this am, discharge planning pending, deandre FERRARI 11/26: on noac, continues, no bleeding, hgb is 11.2 11/27: refusing labs this am, discussed with him importance 11/28: resting comfortably, no acute events, no bleeding reported, no night sweats 11/29: no events, no bleeding reported, no night sweats 11/30: no events, no bleeding, no chills, no major night sweats 12/01: getting rehab, pt/ot as needed, no f/c 12/02: walking around the priest with a FWW, says feeling better 12/03: given ativan overnight, feeling better 12/04: awake and alert, no acute events, placement pending 12/05: awake and alert, resting in bed, no acute events. 12/06: anxious and aggravated, vs stable, placement pending per field nurse case manager 12/07: no events to report, no f/c, no night sweats refusing po, will start on mirtazpine 12/08: no events noted, no f/c, no night sweats, no bleeding noted 12/09: no events, eating breakfast, cbc again reordered 12/10: no fevers or chills noted, no bleeding, no events, pending placement 12/11: walking around in hallway, no complaints, eating 12/12: labs reviewed, cbc still refusing in the am 12/13: asleep, still refusing labs, no fc 12/14: no events noted, no bleeding, no fc 12/15: not agitated, sinemet has been started per neuro 12/16: dc when public guardian raises money 12/17: dc planning as early as today, alert no complaints this am 12/18: no f/c, no night sweats, no bleeding noted 12/20: is on eliquis, sleeping, i woke him up, again refusing cbc 12/21: no bleeding, no chill, no night sweats, examined with rn, refusing to be seen 12/22: no events to report, no bleeding, no f/c 12/23: on eliquis, has been refusing POs, refusing exam too 12/24: sleeping, arousable, no major events 12/25: no events no bleeding, no chills noted, refusing again exam, and labs 12/27: pending placement, no new recs, no f/c noted, no bleeding 12/28: no fevers or chills noted, no bleeding, still refusing lab draws 12/29: recommended he have labs drawn, he refused 12/30: sergio again reordered labs, he says wont do them 12/31: pending placement, no f/c, no night sweats, dw cm 01/01: no events, no bleeding, sleeping comfortably in bed 01/04: no overnight events, no seizures, pending placement 01/05: no events, on eliquis to continue at this time 01/06: ao x2, no signs of respiratory distress, no fever, labs refused 01/07: cardizem was given as bp was high, still refusing labs at this time 01/08: cbc reviewed, on apixaban and diltiazem, plt count improved 01/10: overall feeling better, laying in bed, labs reviewed, bp better 01/11: with uncontrolled afib, given trop check and dig with Toluie 01/12: awake and confused, on bilat wrist restraints, on eliquis 01/13: reviewed psych and cards recs, on depak/zyprexa and eliquis Objective Objective Current Medications Medications (Trade) Dose Ordered Sig/Eduardo Route PRN Reason Start Time Stop Time Status Last Admin Dose Admin Amiodarone HCl (Cordarone) 400 mg EVERY 12 HOURS ORAL 01/12/19 21:00 02/11/19 20:59 01/12/19 22:03 Apixaban (Eliquis) 5 mg BID ORAL 01/09/19 09:00 02/08/19 08:59 01/12/19 18:01 Digoxin (Lanoxin) 0.25 mg DAILY ORAL 01/12/19 09:00 02/11/19 08:59 01/12/19 08:38 Diltiazem HCl (Cardizem CD) 240 mg DAILY ORAL 01/09/19 09:00 02/08/19 08:59 01/12/19 08:38 Divalproex Sodium (Depakote ER) 500 mg BEDTIME ORAL 01/12/19 21:00 02/11/19 20:59 01/12/19 22:03 Levothyroxine Sodium (Synthroid) 25 mcg DAILY@0630 ORAL 01/09/19 06:30 02/08/19 06:29 01/13/19 06:41 Lorazepam (Ativan 2mg/ml 1ml) 1 mg Q4H PRN IV For Anxiety 01/12/19 08:00 01/19/19 07:59 01/12/19 20:22 Olanzapine (ZyPREXA) 30 mg QHS ORAL 01/09/19 21:00 02/08/19 20:59 01/12/19 22:03 Quetiapine Fumarate (SEROquel) 50 mg Q12HR PRN ORAL for agitation 01/09/19 08:45 02/08/19 08:44 01/11/19 21:06 Last 24 Hour Vital Signs Date Time Temp Pulse Resp B/P (MAP) Pulse Ox O2 Delivery O2 Flow Rate FiO2 01/13/19 04:00 72 01/13/19 04:00 98.1 72 18 138/72 (94) 95 01/13/19 00:00 97.4 87 18 141/89 (106) 95 01/13/19 00:00 87 01/12/19 21:00 Room Air Room Air 01/12/19 20:00 98.1 91 18 143/90 (107) 97 01/12/19 20:00 91 01/12/19 16:00 93 01/12/19 16:00 97.0 88 18 136/75 (95) 97 01/12/19 12:00 102 01/12/19 12:00 98.8 102 18 117/74 (88) 98 01/12/19 09:00 Room Air Room Air 01/12/19 08:38 84 01/12/19 08:38 84 154/99 01/12/19 08:00 93 01/12/19 08:00 97.5 84 154/99 (117) 01/12/19 04:00 86 01/12/19 04:00 97.0 89 18 121/88 (99) 97 01/12/19 00:00 93 01/12/19 00:00 97.9 85 18 135/90 (105) 97 01/11/19 21:00 Room Air Room Air 01/11/19 20:00 90 01/11/19 20:00 98.2 98 18 116/78 (91) 98 01/11/19 16:00 97.5 120 18 136/90 (105) 95 01/11/19 16:00 117 01/11/19 15:29 149 01/11/19 12:00 135 01/11/19 12:00 97.3 103 18 118/69 (85) 95 01/11/19 09:02 82 136/83 01/11/19 09:00 Room Air Room Air Intake and Output 01/12/19 01/13/19 19:00 07:00 Intake Total 480 ml Output Total 300 ml Balance 180 ml Intake Oral 480 ml Output Urine Total 300 ml # Voids 3 3 # Bowel Movements 1 Labs Test 01/12/19 13:55 Troponin I 0.019 ng/mL (0.000-0.056) Pro-B-Type Natriuretic Peptide 316 pg/mL (0-125) Digoxin Level 2.0 NG/ML (0.5-2.0) Height (Feet): 5 Height (Inches): 6.00 Weight (Pounds): 121 Objective PE: VITAL SIGNS: Have been reviewed. CHEST: Clear to auscultation. CV: Regular rate and rhythm. No murmurs or extra sounds. GASTROINTESTINAL: Soft, nontender, and nondistended. No organomegaly. EXTREMITIES: No edema. Moves all four extremities. NEUROLOGIC: Sensory intact to light touch. Reflexes are equal on both sides. Bennie Goss MD Jan 13, 2019 08:36
[2019-01-13] MEDS: Eliquis 5mg tablet ORAL SCH ×2 (09:29→17:31)
[2019-01-13] MEDS: Amiodarone 200mg tab ORAL SCH ×2 (09:29→20:32)
[2019-01-13] MEDS: dilTIAZem HCl CD 240mg cap ORAL SCH (09:29)
--- NOTE | 2019-01-13 10:06 | NUR ---
Social Service Note SW confirmed Barbara from [facility] will come out today to interview patient for possible placement. [phone] (p) [phone] (f). Will continue to monitor.
--- NOTE | 2019-01-13 10:25 | NUR ---
PT RE-EVALUATION NOTE Received MD order for PT evaluation. Patient initially evaluated by PT on 11/06/18 and was seen for skilled inpatient PT intervention until 12/02/18 when patient was discharged from PT due to indep/supervised level with functional mobility with a FWW. Patient re-evaluated and was found to require min assist with transfers and ambulation with a FWW due to generalized weakness, impaired balance and decreased safety awareness, and is a high fall risk. Patient will benefit from skilled inpatient PT intervention to address strength, balance, safety and functional mobility. Recommend discharge to SNF for further rehab intervention vs Board and care with PT follow-up depending on patient's progress.
--- NOTE | 2019-01-13 10:33 | NUR ---
RD ASSESSMENT & RECOMMENDATIONS SEE CARE ACTIVITY FOR COMPLETE ASSESSMENT DAILY ESTIMATED NEEDS: Needs based on cardiac/ 56kg 25-30 kcals/kg 1775-0664 total kcals 1-1.5 g protein/kg 56-84 g total protein 25-30 mL/kg 9808-4984 total fluid mLs NUTRITION DIAGNOSIS: Increased kcal/prot intake needs R/T wt loss as evidenced by pt w/ possible significant wt loss of 23lbs/17.5% in 4 months, poor PO intake upon adm, now w/ irregular/ variable intake CURRENT DIET: REGULAR + Ensure Enlive x2 PO DIET RECOMMENDATIONS: Maintain liberalized REGULAR diet + continue Ensure Enlive TID w/ meals ADDITIONAL RECOMMENDATIONS: * Calibrated bedscale wt on 12/26=56.4kg (124lbs) -> rec weekly wt monitoring given h/o possible wt loss, variable PO * Vit D 1000 IU daily (low Vit D25=29) * Monitor PO intake closely -> now improved again, h/o refusing meals * Ensure Enlive MAXIMUM 4-5x per day (350kcal/20g prot per bottle) * Updated labs as able .
--- NOTE | 2019-01-13 11:48 | NUR ---
CASE MANAGEMENT:REVIEW 01/13/19 SI: HYPOTENSION. AFIB W/RVR 97.3 82 18 145/89 96% ON RA IS: AMIODARONE PO Q`2 DEPAKOTE PO QHS DIGOXIN PO QD SYNTHROID PO QD ZYPREXA PO QD CARDIZEM PO QD ELIQUIS PO BID : TELEMETRY STATUS PLAN: SEEKING PLACEMENT
[2019-01-13 12:00] VITALS: BP 134/72
--- NOTE | 2019-01-13 12:03 | NUR ---
*-* INSURANCE *-* UPDATED CLINICALS HAVE BEEN FAXED TO: [facility] F:[phone]
--- NOTE | 2019-01-13 12:10 | NUR ---
NURSE NOTES: Per pharmacy, Pt previously had been discharged with medication from inhouse pharmacy, however, medication to be sent back to pharmacy and upon discharge, per order to be refilled.
--- NOTE | 2019-01-13 13:00 | NUR ---
NURSE NOTES: Pt. throw and broke a plate. "I was trying to feed the kids...." Oriented to reality. Pt. calm and sitting at bedside.
--- NOTE | 2019-01-13 15:10 | Cardiac Electrophysiology PN ---
Assessment/Plan Assessment/Plan 1. PAF with RVR based on ECG on 01/02, 01/07, 01/09 and 01/10/19. HR up to 160s. Converted to SR on Dig 0.25 daily and Cardizem CD 240 and Amiodarone 400 bid to keep in SR. Will Decrease Dig to 0.125 today. Continue Eliquis 2. HTN On Cardizem CD 240 3. Dementia 4. Behavioral disorder DW Dr Wallis Subjective Subjective Converted to SR. No CP or SOB. Objective Last 24 Hour Vital Signs Date Time Temp Pulse Resp B/P (MAP) Pulse Ox O2 Delivery O2 Flow Rate FiO2 01/13/19 12:00 97.7 81 18 134/72 (92) 96 01/13/19 12:00 99 01/13/19 09:29 82 145/89 01/13/19 09:28 82 01/13/19 09:00 Room Air Room Air 01/13/19 08:00 97.3 82 18 145/89 (107) 96 01/13/19 08:00 82 01/13/19 04:00 72 01/13/19 04:00 98.1 72 18 138/72 (94) 95 01/13/19 00:00 97.4 87 18 141/89 (106) 95 01/13/19 00:00 87 01/12/19 21:00 Room Air Room Air 01/12/19 20:00 98.1 91 18 143/90 (107) 97 01/12/19 20:00 91 01/12/19 16:00 93 01/12/19 16:00 97.0 88 18 136/75 (95) 97 Intake and Output 01/12/19 01/13/19 19:00 07:00 Intake Total 480 ml Output Total 300 ml Balance 180 ml Intake Oral 480 ml Output Urine Total 300 ml # Voids 3 3 # Bowel Movements 1 Objective General Appearance: no apparent distress EENT: PERRL/EOMI Cardiovascular: RRR Abdomen: normal bowel sounds 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
--- NOTE | 2019-01-13 15:53 | General Progress Note ---
Assessment/Plan Status: stable, unchanged Assessment/Plan: Assessment/Plan Status: stable, unchanged 63 y/o man with hx of paroxysmal atrial fibrillation, presented to the hospital with pre-syncope, found to have rapid atrial fibrillation. Patient was admitted with a long hospital course. Initially he was found to be in A. fib with RVR was consulted by cardiology. Echocardiogram was unremarkable with normal EF. Patient has been titrated on several medications for heart rate control and is currently on diltiazem 240 mg p.o. daily. Patient was also continued on Eliquis for stroke prevention given past medical history. Patient was continued on levothyroxine however given his most recent results of his dose was changed from 50 MCG to 25 MCG daily. Patient has been stable and medically cleared for discharge for many days. He has now been accepted at an assisted living facility called [facility] in [facility]. # Disposition Patient discharged to assisted facility on 01/08/19 and returned shortly after denial. Patient pending placement. #tachycardia 2/ afib, non-controlled on 01/11/19 -Patient with A. fib with RVR now improved to NSR on 01/12 -Continue diltiazem 240 mg p.o. daily. - EP consultation with Dr. Alberts 01/11 for persistent AF in the 140-150 bpm range.Digoxin added with good response. Now on maintenance 0.125 mg day - Previously seen by Dr. Wagner from cardiology ( last admission) - Pending Cardiology Dr. May recommendation will downgrade to the third floor. Not clinically ready. Difficult placement. Per counter caser no insurance available. [facility] Need to continue efforts by CM and SW to place. # Hypotension- resolved - Monitor BP #Paroxysmal Atrial Fibrillation #Atrial fibrillation with RVR, controlled - Cont beta zack and Diltiazem for rate control - holding parameters. - Cont NOAC.. - echo did not show any remarkable changes - Apprec cardiology recs #Anemia due to chronic illness #Thrombocytopenia, resolved - Hgb and platelet count appeared to be at baseline, seen by Hematology, no new changes recommended. Labs stable. #unstable gait -continue PT #Behavorial disorder -psych meds restarted -psychiatry consulted Time of note may not reflect my encounter Subjective ROS Limited/Unobtainable: Yes Allergies: Coded Allergies: RISPERIDONE (Unverified Allergy, Unknown, 07/04/18) ZIPRASIDONE (Verified Allergy, Unknown, 06/30/18) Objective Last 24 Hour Vital Signs Date Time Temp Pulse Resp B/P (MAP) Pulse Ox O2 Delivery O2 Flow Rate FiO2 01/13/19 12:00 97.7 81 18 134/72 (92) 96 01/13/19 12:00 99 01/13/19 09:29 82 145/89 01/13/19 09:28 82 01/13/19 09:00 Room Air Room Air 01/13/19 08:00 97.3 82 18 145/89 (107) 96 01/13/19 08:00 82 01/13/19 04:00 72 01/13/19 04:00 98.1 72 18 138/72 (94) 95 01/13/19 00:00 97.4 87 18 141/89 (106) 95 01/13/19 00:00 87 01/12/19 21:00 Room Air Room Air 01/12/19 20:00 98.1 91 18 143/90 (107) 97 01/12/19 20:00 91 01/12/19 16:00 93 01/12/19 16:00 97.0 88 18 136/75 (95) 97 Intake and Output 01/12/19 01/13/19 19:00 07:00 Intake Total 480 ml Output Total 300 ml Balance 180 ml Intake Oral 480 ml Output Urine Total 300 ml # Voids 3 3 # Bowel Movements 1 Height (Feet): 5 Height (Inches): 6.00 Weight (Pounds): 121 General Appearance: WD/WN EENT: PERRL/EOMI Neck: non-tender Cardiovascular: normal peripheral pulses, normal rate Respiratory/Chest: chest wall non-tender, lungs clear Abdomen: normal bowel sounds, non tender Extremities: normal range of motion 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
[2019-01-13 16:00] VITALS: BP 130/81
--- NOTE | 2019-01-13 19:41 | NUR ---
HAND-OFF: Report given to ELLA Rice. Pt. sleeping comfortably.
--- NOTE | 2019-01-13 19:48 | NUR ---
NURSE NOTES: Received pt and report from ELLA Pagan. Observed pt asleep in bed with both eyes closed; arousable to name. scouring machine tender is in placed, IV site intact, asymptomatic, and patent. Bed is in the lowest position and locked. Call light within reach. No signs/symptoms of acute distress noted at this time. Will continue plan of care.
--- NOTE | 2019-01-13 19:59 | NUR ---
NURSE NOTES: Pt removed phototypesetting equipment monitor. Educated pt on the importance and risks and benefits of the phototypesetting equipment monitor while he is on the telemetry unit. Pt continues to refused it and said, " I don't need it. I feel great. I feel fine."
[2019-01-13 20:00] VITALS: BP 124/71
[2019-01-13] MEDS: Depakote ER 500mg tab ORAL SCH (20:32)
[2019-01-13] MEDS: OLANZapine 10mg tab ORAL SCH (20:45)
--- NOTE | 2019-01-13 22:02 | NUR ---
NURSE NOTES: Pt is agitated. Pt got out of bed and threw bed covers and blankets on the ground multiple times. Pt also tried to flip bedside table over in which water was spilled all over the ground. Administered Seroquel 50mg PO PRN for agitation. Will continue to monitor pt.
[2019-01-14] VITALS: BP 126/72
[2019-01-14 04:00] VITALS: BP 123/80
[2019-01-14] MEDS: Levothyroxine 25mcg tab ORAL SCH (06:36)
--- NOTE | 2019-01-14 07:35 | NUR ---
NURSE NOTES: Received patient from Govind Rice. Patient is sleeping comfortably in bed. No s/s of pain or discomfort. safety precautions in place. call jones within reach. Will monitor patient throughout this shift.
--- NOTE | 2019-01-14 07:44 | NUR ---
HAND-OFF: Report given to ELLA Miller.
[2019-01-14 08:00] VITALS: BP 152/86
--- NOTE | 2019-01-14 08:47 | NUR ---
CASE MANAGEMENT:REVIEW 01/14/19 SI: HYPOTENSION. AFIB W/RVR 97.7 72 21 152/86 95% ON RA IS: AMIODARONE PO Q12 DEPAKOTE PO QHS DIGOXIN PO QD SYNTHROID PO QD ZYPREXA PO QHS CARDIZEM PO QD ELIQUIS PO BID SEROQUEL PO Q12 PRN : TELEMETRY STATUS PLAN: SEEKING PLACEMENT
[2019-01-14] MEDS: dilTIAZem HCl CD 240mg cap ORAL SCH (08:55)
[2019-01-14] MEDS: Amiodarone 200mg tab ORAL SCH ×2 (08:55→21:59)
[2019-01-14] MEDS: Digoxin 0.125mg tab ORAL SCH (08:56)
[2019-01-14] MEDS: Eliquis 5mg tablet ORAL SCH ×2 (08:59→17:08)
--- NOTE | 2019-01-14 09:07 | Hematology/Onc Progress Note ---
Assessment/Plan Assessment/Plan # Anemia of chronic disease due to underlying chronic medical issues, multifactorial --> Anemia workup has been reviewed. Ferritin 83, TIBC 242 --> No evidence of hemolysis is noted, peripheral smear has been reviewed. --> Hgb goal >7. Transfuse prn. --> Epogen or iron at this time is not particularly indicated --> Medications have been reviewed --> hgb trend 14.1-->12.5--> 12.3-->11-->11.2-->10-->14.1 --> still has been refusing labs AGAIN # Thrombocytopenia - potential causes multifactorial, evaluate liver and viral etiologies to begin, also could be related to underlying medications patient has received. --> Hep panel and HIV on PRIOR admission was negative --> US abd negative for cirrhosis and hsm --> Peripheral smear ordered to evaluate for blasts/schistocytes, none noted --> abx and other meds have been reviewed (one contributor could be depakote) --> ok for ppx if plt >50k w/ either heparin or lovenox --> Plt trend 118-->169k-->187k--> 102K->133k-->154k-->182k-->258 # FTT with decreased bmi on admission --> began on mirtazapine, to continue at this time --> daily weight and monitor # Atelectasis, optimize pulmonary hygiene/mobilize as tolerated --> on cxr appears stable --> per pulm recs # Paroxysmal AFib, per cardiology recs--> on noac --> on eliquis (ok to continue) --> dig per Dr. May # Hypertension --> controlled, sbp goal <140 --> as per cards # Hypothyroidism --> Synthroid po to continue # Lactic acidosis --> has resolved # MACARENA which has resolved --> per renal care # Psych d/o --> per psych on depak, zyprexa # Placement pending --> rehab, and pt/ot --> difficult with placement with insurance --> daily dw cms The timing of this note does not necessarily reflect the time of the patient was seen. Greatly appreciate consultation! Subjective Constitutional: Denies: no symptoms, chills, fever, malaise, weakness, other Cardiovascular: Denies: no symptoms, chest pain, edema, irregular heart rate, lightheadedness, palpitations, syncope, other Respiratory: Denies: no symptoms, cough, shortness of breath, SOB with excertion, SOB at rest, sputum, wheezing, other Genitourinary: Denies: no symptoms, burning, discharge, frequency, flank pain, hematuria, incontinence, pain, urgency, other Neurologic/Psychiatric: Denies: no symptoms, anxiety, depressed, emotional problems, headache, numbness, paresthesia, pre-existing deficit, seizure, tingling, tremors, weakness, other Endocrine: Denies: no symptoms, excessive sweating, flushing, intolerance to cold, intolerance to heat, increased hunger, increased thirst, increased urine, unexplained weight gain, unexplained weight loss, other Allergies: Coded Allergies: RISPERIDONE (Unverified Allergy, Unknown, 07/04/18) ZIPRASIDONE (Verified Allergy, Unknown, 06/30/18) Subjective 11/06: Pt resting in bed. No acute distress. DC planning. 11/08: Pt asleep in bed. No acute events. 11/10: Pt stable, no signs of acute distress or SOB. Venous duplex negative. 11/11: Pt resting in bed. Afebrile, no sob. MRI brain pending. 11/12: Pt in bed, sleeping. No respiratory distress noted. DC planning. 11/13: Pt awake and alert, refused morning meds. No signs of SOB or pain observed. Plt count significantly improved overnight. 11/15: Pt denies pain, no complaints of dyspnea 11/17: Pt resting in bed no chest pain or dyspnea, no other complaints 11/18: unable to place picc given do not have consent 11/20: no acute events reported. 11/21: pt refused am labs as well as am meds. h/h stable from prior labs. 11/22: pt no acute distress. Afebrile, VS reviewed. 11/23: no events reported, no f/c noted 11/24: refusing to participate in exam, labs have been reviewed 11/25: eating ensure this am, discharge planning pending, dw CM 11/26: on noac, continues, no bleeding, hgb is 11.2 11/27: refusing labs this am, discussed with him importance 11/28: resting comfortably, no acute events, no bleeding reported, no night sweats 11/29: no events, no bleeding reported, no night sweats 11/30: no events, no bleeding, no chills, no major night sweats 12/01: getting rehab, pt/ot as needed, no f/c 12/02: walking around the priest with a FWW, says feeling better 12/03: given ativan overnight, feeling better 12/04: awake and alert, no acute events, placement pending 12/05: awake and alert, resting in bed, no acute events. 12/06: anxious and aggravated, vs stable, placement pending per rifle case repairer 12/07: no events to report, no f/c, no night sweats refusing po, will start on mirtazpine 12/08: no events noted, no f/c, no night sweats, no bleeding noted 12/09: no events, eating breakfast, cbc again reordered 12/10: no fevers or chills noted, no bleeding, no events, pending placement 12/11: walking around in hallway, no complaints, eating 12/12: labs reviewed, cbc still refusing in the am 12/13: asleep, still refusing labs, no fc 12/14: no events noted, no bleeding, no fc 12/15: not agitated, sinemet has been started per neuro 12/16: dc when public guardian raises money 12/17: dc planning as early as today, alert no complaints this am 12/18: no f/c, no night sweats, no bleeding noted 12/20: is on eliquis, sleeping, i woke him up, again refusing cbc 12/21: no bleeding, no chill, no night sweats, examined with rn, refusing to be seen 12/22: no events to report, no bleeding, no f/c 12/23: on eliquis, has been refusing POs, refusing exam too 12/24: sleeping, arousable, no major events 12/25: no events no bleeding, no chills noted, refusing again exam, and labs 12/27: pending placement, no new recs, no f/c noted, no bleeding 12/28: no fevers or chills noted, no bleeding, still refusing lab draws 12/29: recommended he have labs drawn, he refused 12/30: sergio again reordered labs, he says wont do them 12/31: pending placement, no f/c, no night sweats, dw cm 01/01: no events, no bleeding, sleeping comfortably in bed 01/04: no overnight events, no seizures, pending placement 01/05: no events, on eliquis to continue at this time 01/06: ao x2, no signs of respiratory distress, no fever, labs refused 01/07: cardizem was given as bp was high, still refusing labs at this time 01/08: cbc reviewed, on apixaban and diltiazem, plt count improved 01/10: overall feeling better, laying in bed, labs reviewed, bp better 01/11: with uncontrolled afib, given trop check and dig with Toluie 01/12: awake and confused, on bilat wrist restraints, on eliquis 01/13: reviewed psych and cards recs, on depak/zyprexa and eliquis 01/14: remains agitated at this time, no f/c, have ordered for repeat cbc Objective Objective Current Medications Medications (Trade) Dose Ordered Sig/Eduardo Route PRN Reason Start Time Stop Time Status Last Admin Dose Admin Amiodarone HCl (Cordarone) 400 mg EVERY 12 HOURS ORAL 01/12/19 21:00 02/11/19 20:59 01/14/19 08:55 Apixaban (Eliquis) 5 mg BID ORAL 01/09/19 09:00 02/08/19 08:59 01/14/19 08:59 Digoxin (Lanoxin) 0.125 mg DAILY ORAL 01/14/19 09:00 02/11/19 08:59 01/14/19 08:56 Diltiazem HCl (Cardizem CD) 240 mg DAILY ORAL 01/09/19 09:00 02/08/19 08:59 01/14/19 08:55 Divalproex Sodium (Depakote ER) 500 mg BEDTIME ORAL 01/12/19 21:00 02/11/19 20:59 01/13/19 20:32 Levothyroxine Sodium (Synthroid) 25 mcg DAILY@0630 ORAL 01/09/19 06:30 02/08/19 06:29 01/14/19 06:36 Lorazepam (Ativan 2mg/ml 1ml) 1 mg Q4H PRN IV For Anxiety 01/12/19 08:00 01/19/19 07:59 01/12/19 20:22 Olanzapine (ZyPREXA) 30 mg QHS ORAL 01/09/19 21:00 02/08/19 20:59 01/13/19 20:45 Quetiapine Fumarate (SEROquel) 50 mg Q12HR PRN ORAL for agitation 01/09/19 08:45 02/08/19 08:44 01/13/19 21:59 Last 24 Hour Vital Signs Date Time Temp Pulse Resp B/P (MAP) Pulse Ox O2 Delivery O2 Flow Rate FiO2 01/14/19 08:56 109 01/14/19 08:55 72 152/86 01/14/19 08:00 97.7 72 21 152/86 (108) 95 01/14/19 04:00 97.4 68 18 123/80 (94) 95 01/14/19 04:00 67 01/14/19 00:00 98.6 76 19 126/72 (90) 96 01/14/19 00:00 76 01/13/19 21:00 Room Air Room Air 01/13/19 20:00 97.8 83 19 124/71 (88) 95 01/13/19 16:00 98.5 82 18 130/81 (97) 96 01/13/19 12:00 97.7 81 18 134/72 (92) 96 01/13/19 12:00 99 01/13/19 09:29 82 145/89 01/13/19 09:28 82 01/13/19 09:00 Room Air Room Air 01/13/19 08:00 97.3 82 18 145/89 (107) 96 01/13/19 08:00 82 01/13/19 04:00 72 01/13/19 04:00 98.1 72 18 138/72 (94) 95 01/13/19 00:00 97.4 87 18 141/89 (106) 95 01/13/19 00:00 87 01/12/19 21:00 Room Air Room Air 01/12/19 20:00 98.1 91 18 143/90 (107) 97 01/12/19 20:00 91 01/12/19 16:00 93 01/12/19 16:00 97.0 88 18 136/75 (95) 97 01/12/19 12:00 102 01/12/19 12:00 98.8 102 18 117/74 (88) 98 Intake and Output 01/13/19 01/14/19 19:00 07:00 Intake Total 600 ml 450 ml Output Total 400 ml Balance 600 ml 50 ml Intake Oral 450 ml Other 600 ml Output Urine Total 400 ml # Voids 3 Labs Test 01/12/19 13:55 Troponin I 0.019 ng/mL (0.000-0.056) Pro-B-Type Natriuretic Peptide 316 pg/mL (0-125) Digoxin Level 2.0 NG/ML (0.5-2.0) Height (Feet): 5 Height (Inches): 6.00 Weight (Pounds): 121 Objective PE: VITAL SIGNS: Have been reviewed. CHEST: Clear to auscultation. CV: Regular rate and rhythm. No murmurs or extra sounds. GI: Soft, nontender, and nondistended. No organomegaly. EX: No edema. Moves all four extremities. NEURO: Sensory intact to light touch. Reflexes are equal on both sides. Bennie Goss MD Jan 14, 2019 09:07
[2019-01-14 09:48] LABS: BASOPHILS % (AUTO) 3.2 % (0.0-2.0); EOSINOPHILS % (AUTO) 5.3 % (0.0-3.0); HEMATOCRIT 40.5 % (42.0-52.0); HEMOGLOBIN 13.4 G/DL (14.2-18.0); LYMPHOCYTES % (AUTO) 22.4 % (20.0-45.0); MEAN CORPUSCULAR VOLUME 89 FL (80-99); NEUTROPHILS % (AUTO) 58.2 % (45.0-75.0); PLATELET COUNT 252 K/UL (150-450); RED BLOOD COUNT 4.55 M/UL (4.70-6.10); WHITE BLOOD COUNT 5.3 K/UL (4.8-10.8)
--- NOTE | 2019-01-14 10:20 | NUR ---
PT NOTE Angela JARAMILLO requesting to defer PT treatment at this time, patient agitated earlier, medicated with Seroquel, on bilateral wrist restraints. Will follow.
[2019-01-14 12:00] VITALS: BP 137/93
--- NOTE | 2019-01-14 14:00 | NUR ---
*-* INSURANCE *-* UPDATED CLINICALS HAVE BEEN FAXED TO: [facility] F:[phone]
--- NOTE | 2019-01-14 14:42 | General Progress Note ---
Assessment/Plan Status: stable, unchanged Assessment/Plan: Assessment/Plan Status: stable, unchanged 63 y/o man with hx of paroxysmal atrial fibrillation, presented to the hospital with pre-syncope, found to have rapid atrial fibrillation. Patient was admitted with a long hospital course. Initially he was found to be in A. fib with RVR was consulted by cardiology. Echocardiogram was unremarkable with normal EF. Patient has been titrated on several medications for heart rate control and is currently on diltiazem 240 mg p.o. daily. Patient was also continued on Eliquis for stroke prevention given past medical history. Patient was continued on levothyroxine however given his most recent results of his dose was changed from 50 MCG to 25 MCG daily. Patient has been stable and medically cleared for discharge for many days. He has now been accepted at an assisted living facility called [facility] in [facility]. # Disposition Patient discharged to assisted facility on 01/08/19 and returned shortly after denial. Patient pending placement. #tachycardia 2/ afib, non-controlled on 01/11/19 -Patient with A. fib with RVR now improved to NSR on 01/12 -Continue diltiazem 240 mg p.o. daily. - EP consultation with Dr. Alberts 01/11 for persistent AF in the 140-150 bpm range.Digoxin added with good response. Now on maintenance 0.125 mg day - Previously seen by Dr. Wagner from cardiology ( last admission) - Pending Cardiology Dr. May recommendation will downgrade to the third floor. Not clinically ready. Difficult placement. Per case mgr no insurance available. [facility] Need to continue efforts by CM and SW to place. # Hypotension- resolved - Monitor BP #Paroxysmal Atrial Fibrillation #Atrial fibrillation with RVR, controlled - Cont beta zack and Diltiazem for rate control - holding parameters. - Cont NOAC.. - echo did not show any remarkable changes - Apprec cardiology recs #Anemia due to chronic illness #Thrombocytopenia, resolved - Hgb and platelet count appeared to be at baseline, seen by Hematology, no new changes recommended. Labs stable. #unstable gait -continue PT #Behavorial disorder -psych meds restarted -psychiatry consulted Time of note may not reflect my encounter Subjective ROS Limited/Unobtainable: Yes Allergies: Coded Allergies: RISPERIDONE (Unverified Allergy, Unknown, 07/04/18) ZIPRASIDONE (Verified Allergy, Unknown, 06/30/18) All Systems: reviewed and negative except above Objective Last 24 Hour Vital Signs Date Time Temp Pulse Resp B/P (MAP) Pulse Ox O2 Delivery O2 Flow Rate FiO2 01/14/19 12:00 97.2 120 23 137/93 (108) 95 01/14/19 12:00 97 01/14/19 12:00 97.2 120 23 137/93 (108) 95 01/14/19 09:00 Room Air Room Air 01/14/19 08:56 109 01/14/19 08:55 72 152/86 01/14/19 08:00 63 01/14/19 08:00 97.7 72 21 152/86 (108) 95 01/14/19 04:00 97.4 68 18 123/80 (94) 95 01/14/19 04:00 67 01/14/19 00:00 98.6 76 19 126/72 (90) 96 01/14/19 00:00 76 01/13/19 21:00 Room Air Room Air 01/13/19 20:00 97.8 83 19 124/71 (88) 95 01/13/19 16:00 98.5 82 18 130/81 (97) 96 Intake and Output 01/13/19 01/14/19 19:00 07:00 Intake Total 600 ml 450 ml Output Total 400 ml Balance 600 ml 50 ml Intake Oral 450 ml Other 600 ml Output Urine Total 400 ml # Voids 3 Laboratory Tests 01/14/19 09:35: White Blood Count 5.3, Red Blood Count 4.55L, Hemoglobin 13.4L, Hematocrit 40.5L , Mean Corpuscular Volume 89, Mean Corpuscular Hemoglobin 29.6, Mean Corpuscular Hemoglobin Concent 33.2, Red Cell Distribution Width 14.0, Platelet Count 252, Mean Platelet Volume 5.1L, Neutrophils (%) (Auto) 58.2, Lymphocytes ( %) (Auto) 22.4, Monocytes (%) (Auto) 11.0H, Eosinophils (%) (Auto) 5.3H, Basophils (%) (Auto) 3.2H Height (Feet): 5 Height (Inches): 6.00 Weight (Pounds): 121 General Appearance: moderate distress EENT: PERRL/EOMI Cardiovascular: normal rate Respiratory/Chest: lungs clear, normal breath sounds Abdomen: non tender, soft Extremities: normal range of motion Edema: trace edema 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
--- NOTE | 2019-01-14 15:24 | Cardiac Electrophysiology PN ---
Assessment/Plan Assessment/Plan 1. PAF with RVR based on ECG on 01/02, 01/07, 01/09 and 01/10/19. HR up to 160s. Converted to SR on Dig 0.125 daily and Cardizem CD 240 and Amiodarone 400 bid to keep in SR. Continue Eliquis 2. HTN On Cardizem CD 240 3. Dementia 4. Behavioral disorder DW Dr Wallis Subjective Subjective Was in atrial fib with rate 120s for an hour this am and then converted back in SR. No CP or SOB. Objective Last 24 Hour Vital Signs Date Time Temp Pulse Resp B/P (MAP) Pulse Ox O2 Delivery O2 Flow Rate FiO2 01/14/19 12:00 97.2 120 23 137/93 (108) 95 01/14/19 12:00 97 01/14/19 12:00 97.2 120 23 137/93 (108) 95 01/14/19 09:00 Room Air Room Air 01/14/19 08:56 109 01/14/19 08:55 72 152/86 01/14/19 08:00 63 01/14/19 08:00 97.7 72 21 152/86 (108) 95 01/14/19 04:00 97.4 68 18 123/80 (94) 95 01/14/19 04:00 67 01/14/19 00:00 98.6 76 19 126/72 (90) 96 01/14/19 00:00 76 01/13/19 21:00 Room Air Room Air 01/13/19 20:00 97.8 83 19 124/71 (88) 95 01/13/19 16:00 98.5 82 18 130/81 (97) 96 Intake and Output 01/13/19 01/14/19 19:00 07:00 Intake Total 600 ml 450 ml Output Total 400 ml Balance 600 ml 50 ml Intake Oral 450 ml Other 600 ml Output Urine Total 400 ml # Voids 3 Laboratory Tests Test 01/14/19 09:35 White Blood Count 5.3 K/UL (4.8-10.8) Red Blood Count 4.55 M/UL (4.70-6.10) L Hemoglobin 13.4 G/DL (14.2-18.0) L Hematocrit 40.5 % (42.0-52.0) L Mean Corpuscular Volume 89 FL (80-99) Mean Corpuscular Hemoglobin 29.6 PG (27.0-31.0) Mean Corpuscular Hemoglobin Concent 33.2 G/DL (32.0-36.0) Red Cell Distribution Width 14.0 % (11.6-14.8) Platelet Count 252 K/UL (150-450) Mean Platelet Volume 5.1 FL (6.5-10.1) L Neutrophils (%) (Auto) 58.2 % (45.0-75.0) Lymphocytes (%) (Auto) 22.4 % (20.0-45.0) Monocytes (%) (Auto) 11.0 % (1.0-10.0) H Eosinophils (%) (Auto) 5.3 % (0.0-3.0) H Basophils (%) (Auto) 3.2 % (0.0-2.0) H Objective General Appearance: no apparent distress EENT: PERRL/EOMI Cardiovascular: RRR Abdomen: normal bowel sounds 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
[2019-01-14 16:00] VITALS: BP 146/78
--- NOTE | 2019-01-14 19:42 | NUR ---
HAND-OFF: Report given to Govind Cantu. Patient stable. Plan of care endorsed.
--- NOTE | 2019-01-14 19:43 | NUR ---
NURSE NOTES: received pt from Anne. JARAMILLO. Pt is awake and resting in bed. IV site intact. Bed locked in lowest position, call light within reach. Will continue plan of care.
[2019-01-14 20:00] VITALS: BP 149/91
[2019-01-14] MEDS: LORazepam Inj 2mg/ml 1ml IV PRN (20:13)
[2019-01-14] MEDS: Depakote ER 500mg tab ORAL SCH (21:59)
[2019-01-14] MEDS: OLANZapine 10mg tab ORAL SCH (22:03)
--- NOTE | 2019-01-15 02:00 | Progress Note ---
DATE: 01/14/2019 SUBJECTIVE: The patient is in bed, was agitated early this morning. more medication, poor memory. Poor insight and judgment. MENTAL STATUS EXAMINATION: The patient is alert, oriented times self. He is confused. Mood is agitated. Affect is flat. Thought process, there is a paucity of thought content. Thought content, no suicidal or homicidal ideation. ASSESSMENT: 1. Agitation. 2. Depression. PLAN: We will continue current medication. Provide the patient with reality orientation. Anna Mtahew M.D. DR: ABDULAZIZ JOB#: [id number] CC: ALEXX
[2019-01-15 04:00] VITALS: BP 135/77
[2019-01-15] MEDS: Levothyroxine 25mcg tab ORAL SCH (06:46)
--- NOTE | 2019-01-15 07:19 | NUR ---
HAND-OFF: Report given to ELLA Miller. Endorsed plan of care.
--- NOTE | 2019-01-15 07:47 | NUR ---
NURSE NOTES: Received report from Armando Bedoya Rn. Patient i s awake in bed. B/L soft wrist restraints in place. +ROM, Denies pain or discomfort. Safety precautions in place. Call jnoes within patients reach. Will anticipate need and monitor throughout the shift.
[2019-01-15 08:00] VITALS: BP 155/86
--- NOTE | 2019-01-15 09:39 | Hematology/Onc Progress Note ---
Assessment/Plan Assessment/Plan # Anemia of chronic disease due to underlying chronic medical issues, multifactorial --> Anemia workup has been reviewed. Ferritin 83, TIBC 242 --> No evidence of hemolysis is noted, peripheral smear has been reviewed. --> Hgb goal >7. Transfuse prn. --> Epogen or iron at this time is not particularly indicated --> Medications have been reviewed --> hgb trend 14.1-->12.5--> 12.3-->11-->11.2-->10-->14.1-->13.4 --> still has been refusing labs AGAIN # Thrombocytopenia - potential causes multifactorial, evaluate liver and viral etiologies to begin, also could be related to underlying medications patient has received. --> Hep panel and HIV on PRIOR admission was negative --> US abd negative for cirrhosis and hsm --> Peripheral smear ordered to evaluate for blasts/schistocytes, none noted --> abx and other meds have been reviewed (one contributor could be depakote) --> ok for ppx if plt >50k w/ either heparin or lovenox --> Plt trend 118-->169k-->187k--> 102K->133k-->154k-->182k-->258-->252 # FTT with decreased bmi on admission --> began on mirtazapine, to continue at this time --> daily weight and monitor # Atelectasis, optimize pulmonary hygiene/mobilize as tolerated --> on cxr appears stable --> per pulm recs # Paroxysmal AFib, per cardiology recs--> on noac --> on eliquis (ok to continue) --> dig per Dr. May # Hypertension --> controlled, sbp goal <140 --> as per cards # Hypothyroidism --> Synthroid po to continue # Lactic acidosis --> has resolved # MACARENA which has resolved --> per renal care # Psych d/o --> per psych on depak, zyprexa # Placement pending --> rehab, and pt/ot --> difficult with placement with insurance --> daily dw cms The timing of this note does not necessarily reflect the time of the patient was seen. Greatly appreciate consultation! Subjective Allergies: Coded Allergies: RISPERIDONE (Unverified Allergy, Unknown, 07/04/18) ZIPRASIDONE (Verified Allergy, Unknown, 06/30/18) Subjective 11/06: Pt resting in bed. No acute distress. DC planning. 11/08: Pt asleep in bed. No acute events. 11/10: Pt stable, no signs of acute distress or SOB. Venous duplex negative. 11/11: Pt resting in bed. Afebrile, no sob. MRI brain pending. 11/12: Pt in bed, sleeping. No respiratory distress noted. DC planning. 11/13: Pt awake and alert, refused morning meds. No signs of SOB or pain observed. Plt count significantly improved overnight. 11/15: Pt denies pain, no complaints of dyspnea 11/17: Pt resting in bed no chest pain or dyspnea, no other complaints 11/18: unable to place picc given do not have consent 11/20: no acute events reported. 11/21: pt refused am labs as well as am meds. h/h stable from prior labs. 11/22: pt no acute distress. Afebrile, VS reviewed. 11/23: no events reported, no f/c noted 11/24: refusing to participate in exam, labs have been reviewed 11/25: eating ensure this am, discharge planning pending, deander FERRARI 11/26: on noac, continues, no bleeding, hgb is 11.2 11/27: refusing labs this am, discussed with him importance 11/28: resting comfortably, no acute events, no bleeding reported, no night sweats 11/29: no events, no bleeding reported, no night sweats 11/30: no events, no bleeding, no chills, no major night sweats 12/01: getting rehab, pt/ot as needed, no f/c 12/02: walking around the priest with a FWW, says feeling better 12/03: given ativan overnight, feeling better 12/04: awake and alert, no acute events, placement pending 12/05: awake and alert, resting in bed, no acute events. 12/06: anxious and aggravated, vs stable, placement pending per community case manager 12/07: no events to report, no f/c, no night sweats refusing po, will start on mirtazpine 12/08: no events noted, no f/c, no night sweats, no bleeding noted 12/09: no events, eating breakfast, cbc again reordered 12/10: no fevers or chills noted, no bleeding, no events, pending placement 12/11: walking around in hallway, no complaints, eating 12/12: labs reviewed, cbc still refusing in the am 12/13: asleep, still refusing labs, no fc 12/14: no events noted, no bleeding, no fc 12/15: not agitated, sinemet has been started per neuro 12/16: dc when public guardian raises money 12/17: dc planning as early as today, alert no complaints this am 12/18: no f/c, no night sweats, no bleeding noted 12/20: is on eliquis, sleeping, i woke him up, again refusing cbc 12/21: no bleeding, no chill, no night sweats, examined with rn, refusing to be seen 12/22: no events to report, no bleeding, no f/c 12/23: on eliquis, has been refusing POs, refusing exam too 12/24: sleeping, arousable, no major events 12/25: no events no bleeding, no chills noted, refusing again exam, and labs 12/27: pending placement, no new recs, no f/c noted, no bleeding 12/28: no fevers or chills noted, no bleeding, still refusing lab draws 12/29: recommended he have labs drawn, he refused 12/30: sergio again reordered labs, he says wont do them 12/31: pending placement, no f/c, no night sweats, dw cm 01/01: no events, no bleeding, sleeping comfortably in bed 01/04: no overnight events, no seizures, pending placement 01/05: no events, on eliquis to continue at this time 01/06: ao x2, no signs of respiratory distress, no fever, labs refused 01/07: cardizem was given as bp was high, still refusing labs at this time 01/08: cbc reviewed, on apixaban and diltiazem, plt count improved 01/10: overall feeling better, laying in bed, labs reviewed, bp better 01/11: with uncontrolled afib, given trop check and dig with Toluie 01/12: awake and confused, on bilat wrist restraints, on eliquis 01/13: reviewed psych and cards recs, on depak/zyprexa and eliquis 01/14: remains agitated at this time, no f/c, have ordered for repeat cbc 01/15: on restraints, no fever or chills, denies pain, labs reviewed Objective Objective Current Medications Medications (Trade) Dose Ordered Sig/Eduardo Route PRN Reason Start Time Stop Time Status Last Admin Dose Admin Amiodarone HCl (Cordarone) 400 mg EVERY 12 HOURS ORAL 01/12/19 21:00 02/11/19 20:59 01/14/19 21:59 Apixaban (Eliquis) 5 mg BID ORAL 01/09/19 09:00 02/08/19 08:59 01/14/19 17:08 Digoxin (Lanoxin) 0.125 mg DAILY ORAL 01/14/19 09:00 02/11/19 08:59 01/14/19 08:56 Diltiazem HCl (Cardizem CD) 240 mg DAILY ORAL 01/09/19 09:00 02/08/19 08:59 01/14/19 08:55 Divalproex Sodium (Depakote ER) 500 mg BEDTIME ORAL 01/12/19 21:00 02/11/19 20:59 01/14/19 21:59 Levothyroxine Sodium (Synthroid) 25 mcg DAILY@0630 ORAL 01/09/19 06:30 02/08/19 06:29 01/15/19 06:46 Lorazepam (Ativan 2mg/ml 1ml) 1 mg Q4H PRN IV For Anxiety 01/12/19 08:00 01/19/19 07:59 01/14/19 20:13 Olanzapine (ZyPREXA) 30 mg QHS ORAL 01/09/19 21:00 02/08/19 20:59 01/14/19 22:03 Quetiapine Fumarate (SEROquel) 50 mg Q12HR PRN ORAL for agitation 01/09/19 08:45 02/08/19 08:44 01/14/19 10:00 Last 24 Hour Vital Signs Date Time Temp Pulse Resp B/P (MAP) Pulse Ox O2 Delivery O2 Flow Rate FiO2 01/15/19 08:00 97.6 70 18 155/86 (109) 98 01/15/19 04:00 98.2 64 18 135/77 (96) 100 01/15/19 04:00 64 01/15/19 00:00 75 01/15/19 00:00 75 01/14/19 21:00 Room Air Room Air 01/14/19 20:00 85 01/14/19 20:00 97.8 85 19 149/91 (110) 96 01/14/19 16:00 75 01/14/19 16:00 97.5 75 22 146/78 (100) 95 01/14/19 12:00 97.2 120 23 137/93 (108) 95 01/14/19 12:00 97 01/14/19 12:00 97.2 120 23 137/93 (108) 95 01/14/19 09:00 Room Air Room Air 01/14/19 08:56 109 01/14/19 08:55 72 152/86 01/14/19 08:00 63 01/14/19 08:00 97.7 72 21 152/86 (108) 95 01/14/19 04:00 97.4 68 18 123/80 (94) 95 01/14/19 04:00 67 01/14/19 00:00 98.6 76 19 126/72 (90) 96 01/14/19 00:00 76 01/13/19 21:00 Room Air Room Air 01/13/19 20:00 97.8 83 19 124/71 (88) 95 01/13/19 16:00 98.5 82 18 130/81 (97) 96 01/13/19 12:00 97.7 81 18 134/72 (92) 96 01/13/19 12:00 99 Intake and Output 01/14/19 01/15/19 18:59 06:59 Intake Total 2050 ml Output Total 401 ml Balance 1649 ml Intake Oral 450 ml IV Total 1000 ml Other 600 ml Output Urine Total 400 ml Stool Total 1 ml # Voids 3 4 # Bowel Movements 1 1 Labs Test 01/12/19 13:55 01/14/19 09:35 Troponin I 0.019 ng/mL (0.000-0.056) Pro-B-Type Natriuretic Peptide 316 pg/mL (0-125) Digoxin Level 2.0 NG/ML (0.5-2.0) White Blood Count 5.3 K/UL (4.8-10.8) Red Blood Count 4.55 M/UL (4.70-6.10) Hemoglobin 13.4 G/DL (14.2-18.0) Hematocrit 40.5 % (42.0-52.0) Mean Corpuscular Volume 89 FL (80-99) Mean Corpuscular Hemoglobin 29.6 PG (27.0-31.0) Mean Corpuscular Hemoglobin Concent 33.2 G/DL (32.0-36.0) Red Cell Distribution Width 14.0 % (11.6-14.8) Platelet Count 252 K/UL (150-450) Mean Platelet Volume 5.1 FL (6.5-10.1) Neutrophils (%) (Auto) 58.2 % (45.0-75.0) Lymphocytes (%) (Auto) 22.4 % (20.0-45.0) Monocytes (%) (Auto) 11.0 % (1.0-10.0) Eosinophils (%) (Auto) 5.3 % (0.0-3.0) Basophils (%) (Auto) 3.2 % (0.0-2.0) Height (Feet): 5 Height (Inches): 6.00 Weight (Pounds): 121 Objective PE: VITAL SIGNS: Have been reviewed. CHEST: Clear to auscultation. CV: Regular rate and rhythm. No murmurs or extra sounds. GI: Soft, nontender, and nondistended. No organomegaly. EX: No edema. Moves all four extremities. NEURO: Sensory intact to light touch. Reflexes are equal on both sides. Bennie Goss MD Jan 15, 2019 09:38
[2019-01-15] MEDS: Digoxin 0.125mg tab ORAL SCH (09:42)
[2019-01-15] MEDS: dilTIAZem HCl CD 240mg cap ORAL SCH (09:42)
[2019-01-15] MEDS: Amiodarone 200mg tab ORAL SCH ×2 (09:42→21:03)
[2019-01-15] MEDS: Eliquis 5mg tablet ORAL SCH ×2 (09:42→17:10)
--- NOTE | 2019-01-15 11:01 | NUR ---
CASE MANAGEMENT:REVIEW 01/15/19 SI: HYPOTENSION. AFIB W/RVR 97.6 70 18 155/86 98% ON RA IS: AMIODARONE PO Q12 DEPAKOTE PO QHS DIGOXIN PO QD SYNTHROID PO QD ZYPREXA PO QHS CARDIZEM PO QD ELIQUIS PO BID SEROQUEL PO Q12 PRN : TELEMETRY STATUS PLAN: SEEKING PLACEMENT
--- NOTE | 2019-01-15 11:29 | NUR ---
*-* INSURANCE *-* UPDATED CLINICALS AND REVIEWS HAVE BEEN FAXED TO: [facility] F:[phone]
[2019-01-15 12:00] VITALS: BP 134/84
--- NOTE | 2019-01-15 13:04 | Cardiac Electrophysiology PN ---
Assessment/Plan Assessment/Plan 1. PAF with RVR based on ECG on 01/02, 01/07, 01/09 and 01/10/19. HR up to 160s. Converted to SR. Continue Dig 0.125 daily, Cardizem CD 240 and Amiodarone 400 bid and Eliquis 2. HTN On Cardizem CD 240 3. Dementia 4. Behavioral disorder DW RN Subjective Subjective Remained in SR on Amiodaropne. No CP or SOB.Confused in restraints Objective Last 24 Hour Vital Signs Date Time Temp Pulse Resp B/P (MAP) Pulse Ox O2 Delivery O2 Flow Rate FiO2 01/15/19 12:00 97.7 77 18 134/84 (101) 97 01/15/19 09:42 70 01/15/19 09:42 70 155/86 01/15/19 09:00 Room Air Room Air 01/15/19 08:00 76 01/15/19 08:00 97.6 70 18 155/86 (109) 98 01/15/19 04:00 98.2 64 18 135/77 (96) 100 01/15/19 04:00 64 01/15/19 00:00 75 01/15/19 00:00 75 01/14/19 21:00 Room Air Room Air 01/14/19 20:00 85 01/14/19 20:00 97.8 85 19 149/91 (110) 96 01/14/19 16:00 75 01/14/19 16:00 97.5 75 22 146/78 (100) 95 Intake and Output 01/14/19 01/15/19 19:00 07:00 Intake Total 2050 ml 120 ml Output Total 401 ml Balance 1649 ml 120 ml Intake Oral 450 ml 120 ml IV Total 1000 ml Other 600 ml Output Urine Total 400 ml Stool Total 1 ml # Voids 3 4 # Bowel Movements 1 1 Objective General Appearance: no apparent distress EENT: PERRL/EOMI Cardiovascular: RRR Abdomen: normal bowel sounds Neurologic: laundry helper II-XII grossly normal Armin May MD Jan 15, 2019 13:04
--- NOTE | 2019-01-15 15:34 | NUR ---
Social Service Note Barbara from [facility] declined accepted. Patient agitated, requires assistance with ADLS and has occasional restraints. No assistance from public guardian regarding placement at this time. Will continue to explore alternative options.
--- NOTE | 2019-01-15 15:42 | General Progress Note ---
Assessment/Plan Status: stable, unchanged Assessment/Plan: Assessment/Plan Status: stable, unchanged 63 y/o man with hx of paroxysmal atrial fibrillation, presented to the hospital with pre-syncope, found to have rapid atrial fibrillation. Patient was admitted with a long hospital course. Initially he was found to be in A. fib with RVR was consulted by cardiology. Echocardiogram was unremarkable with normal EF. Patient has been titrated on several medications for heart rate control and is currently on diltiazem 240 mg p.o. daily. Patient was also continued on Eliquis for stroke prevention given past medical history. Patient was continued on levothyroxine however given his most recent results of his dose was changed from 50 MCG to 25 MCG daily. Patient has been stable and medically cleared for discharge and discharged to assisted living facility called [facility] in [facility]. However, due to insurance problem he was denied and returned to the ER. # Disposition Patient discharged to assisted facility on 01/08/19 and returned shortly after denial. Patient pending placement. #tachycardia 2/2 afib, non-controlled on 01/11/19 -Patient with A. fib with RVR now improved to NSR on 01/12 -Continue diltiazem 240 mg p.o. daily. - EP consultation with Dr. Alberts 01/11 for persistent AF in the 140-150 bpm range.Digoxin added with good response. Now on maintenance 0.125 mg day - Previously seen by Dr. Wagner from cardiology ( last admission) - Pending Cardiology Dr. May recommendation will downgrade to the third floor. Not clinically ready. Difficult placement. Per therapeutic case manager no insurance available. [facility] notes reported [facility]. Need to continue efforts by CM and SW to place. # Hypotension- resolved - Monitor BP #Paroxysmal Atrial Fibrillation #Atrial fibrillation with RVR, controlled - Cont beta zack and Diltiazem for rate control - Amiodarone started by Dr. May - Cont NOAC.. - echo did not show any remarkable changes - Apprec cardiology recs #Anemia due to chronic illness #Thrombocytopenia, resolved - Hgb and platelet count appeared to be at baseline, seen by Hematology, no new changes recommended. Labs stable. #unstable gait -continue PT #Behavorial disorder -psych meds restarted -psychiatry consulted # Disposition CM follow up for placement ? downgrade to Third floor when cardiology approves to be OFF tele Time of note may not reflect my encounter Subjective ROS Limited/Unobtainable: Yes Allergies: Coded Allergies: RISPERIDONE (Unverified Allergy, Unknown, 07/04/18) ZIPRASIDONE (Verified Allergy, Unknown, 06/30/18) Objective Last 24 Hour Vital Signs Date Time Temp Pulse Resp B/P (MAP) Pulse Ox O2 Delivery O2 Flow Rate FiO2 01/15/19 12:00 72 01/15/19 12:00 97.7 77 18 134/84 (101) 97 01/15/19 09:42 70 01/15/19 09:42 70 155/86 01/15/19 09:00 Room Air Room Air 01/15/19 08:00 76 01/15/19 08:00 97.6 70 18 155/86 (109) 98 01/15/19 04:00 98.2 64 18 135/77 (96) 100 01/15/19 04:00 64 01/15/19 00:00 75 01/15/19 00:00 75 01/14/19 21:00 Room Air Room Air 01/14/19 20:00 85 01/14/19 20:00 97.8 85 19 149/91 (110) 96 01/14/19 16:00 75 01/14/19 16:00 97.5 75 22 146/78 (100) 95 Intake and Output 01/14/19 01/15/19 19:00 07:00 Intake Total 2050 ml 120 ml Output Total 401 ml Balance 1649 ml 120 ml Intake Oral 450 ml 120 ml IV Total 1000 ml Other 600 ml Output Urine Total 400 ml Stool Total 1 ml # Voids 3 4 # Bowel Movements 1 1 Height (Feet): 5 Height (Inches): 6.00 Weight (Pounds): 121 General Appearance: WD/WN EENT: PERRL/EOMI Neck: non-tender Cardiovascular: normal peripheral pulses, normal rate Respiratory/Chest: chest wall non-tender, lungs clear Abdomen: normal bowel sounds Neurologic: director clinical operations II-XII grossly normal Galo Wallis MD Jan 15, 2019 15:42
[2019-01-15 16:00] VITALS: BP 132/72
[2019-01-15] MEDS: LORazepam Inj 2mg/ml 1ml IV PRN (16:13)
--- NOTE | 2019-01-15 19:04 | NUR ---
HAND-OFF: Report given to Armando Bedoya Rn. Patient stable. Plan of care endorsed..
--- NOTE | 2019-01-15 19:39 | NUR ---
NURSE NOTES: Received pt from ELLA Miller. Pt is awake and resting in bed. IV site intact and patent. Bed locked in lowest position, call light within reach. Will continue with plan of care.
[2019-01-15 20:00] VITALS: BP 126/63
[2019-01-15] MEDS: Depakote ER 500mg tab ORAL SCH (21:02)
[2019-01-15] MEDS: OLANZapine 10mg tab ORAL SCH (21:03)
--- NOTE | 2019-01-15 23:27 | Psych Consult Progress Note ---
Psychiatry Progress Note Psychiatry Progress Note Medications Current Medications Medications (Trade) Dose Ordered Sig/Eduardo Route PRN Reason Start Time Stop Time Status Last Admin Dose Admin Amiodarone HCl (Cordarone) 400 mg EVERY 12 HOURS ORAL 01/12/19 21:00 02/11/19 20:59 01/15/19 21:03 Apixaban (Eliquis) 5 mg BID ORAL 01/09/19 09:00 02/08/19 08:59 01/15/19 17:10 Digoxin (Lanoxin) 0.125 mg DAILY ORAL 01/14/19 09:00 02/11/19 08:59 01/15/19 09:42 Diltiazem HCl (Cardizem CD) 240 mg DAILY ORAL 01/09/19 09:00 02/08/19 08:59 01/15/19 09:42 Divalproex Sodium (Depakote ER) 500 mg BEDTIME ORAL 01/12/19 21:00 02/11/19 20:59 01/15/19 21:02 Levothyroxine Sodium (Synthroid) 25 mcg DAILY@0630 ORAL 01/09/19 06:30 02/08/19 06:29 01/15/19 06:46 Lorazepam (Ativan 2mg/ml 1ml) 1 mg Q4H PRN IV For Anxiety 01/12/19 08:00 01/19/19 07:59 01/15/19 16:13 Olanzapine (ZyPREXA) 30 mg QHS ORAL 01/09/19 21:00 02/08/19 20:59 01/15/19 21:03 Quetiapine Fumarate (SEROquel) 50 mg Q12HR PRN ORAL for agitation 01/09/19 08:45 02/08/19 08:44 01/15/19 12:30 Neurological/Psychiatric: Reports: anxiety, depressed, emotional problems Allergies: Coded Allergies: RISPERIDONE (Unverified Allergy, Unknown, 07/04/18) ZIPRASIDONE (Verified Allergy, Unknown, 06/30/18) Objective Data Height (Feet): 5 Height (Inches): 6.00 Weight (Pounds): 121 General Appearance: WD/WN, alert, confused, agitated Behavior Mannerisms: poor eye contact Perceptual Disturbances: hallucinations Additional Comments: alert, oriented times self. He is confused. Mood is agitated. Affect is flat. Thought process, there is a paucity of thought content. Thought content, no suicidal or homicidal ideation. Assessment/Plan [place] I: 1. Agitation. 2. Depression. Status: stable, unchanged Assessment/Plan: PLAN: We will continue current medication. Provide the patient with reality orientation. Anna Mathew MD Jan 15, 2019 23:27
[2019-01-16] VITALS: BP 116/69
--- NOTE | 2019-01-16 03:01 | NUR ---
HAND-OFF: Report given to ELLA Tanner. Endorsed plan of care.
[2019-01-16 04:00] VITALS: BP 130/58
[2019-01-16] MEDS: Levothyroxine 25mcg tab ORAL SCH (05:30)
--- NOTE | 2019-01-16 07:36 | NUR ---
HAND-OFF: Report given to Kiah JARAMILLO. Plan of care endorsed.
--- NOTE | 2019-01-16 07:40 | NUR ---
NURSE NOTES: Nurse report given by ELLA Tanner. Patient's awake and eating breakfast. AO x 2, denies pain, no s/s of distress or SOB. Bed alarm is on, bed at lowest position, call light within reach, break engaged. Will continue to monitor.
[2019-01-16 08:00] VITALS: BP 155/85
[2019-01-16] MEDS: Amiodarone 200mg tab ORAL SCH ×2 (08:59→21:09)
[2019-01-16] MEDS: dilTIAZem HCl CD 240mg cap ORAL SCH (08:59)
[2019-01-16] MEDS: Digoxin 0.125mg tab ORAL SCH (08:59)
[2019-01-16] MEDS: Eliquis 5mg tablet ORAL SCH ×2 (09:00→17:38)
--- NOTE | 2019-01-16 11:45 | Hematology/Onc Progress Note ---
Assessment/Plan Assessment/Plan # Anemia of chronic disease due to underlying chronic medical issues, multifactorial --> Anemia workup has been reviewed. Ferritin 83, TIBC 242 --> No evidence of hemolysis is noted, peripheral smear has been reviewed. --> Hgb goal >7. Transfuse prn. --> Epogen or iron at this time is not particularly indicated --> Medications have been reviewed --> hgb trend 14.1-->12.5--> 12.3-->11-->11.2-->10-->14.1-->13.4 # Thrombocytopenia - potential causes multifactorial, evaluate liver and viral etiologies to begin, also could be related to underlying medications patient has received. --> Hep panel and HIV on PRIOR admission was negative --> US abd negative for cirrhosis and hsm --> Peripheral smear ordered to evaluate for blasts/schistocytes, none noted --> abx and other meds have been reviewed (one contributor could be depakote) --> ok for ppx if plt >50k w/ either heparin or lovenox --> Plt trend 118-->169k-->187k--> 102K->133k-->154k-->182k-->258-->252 # FTT with decreased bmi on admission --> began on mirtazapine, to continue at this time --> daily weight and monitor # Atelectasis, optimize pulmonary hygiene/mobilize as tolerated --> on cxr appears stable --> per pulm recs # Paroxysmal AFib, per cardiology recs--> on noac --> on eliquis (ok to continue) --> dig per Dr. May # Hypertension --> controlled, sbp goal <140 --> as per cards # Hypothyroidism --> Synthroid po to continue # Lactic acidosis --> has resolved # MACARENA which has resolved --> per renal care # Psych d/o --> per psych on depak, zyprexa # Placement pending --> rehab, and pt/ot --> difficult with placement with insurance --> daily dw cms The timing of this note does not necessarily reflect the time of the patient was seen. Greatly appreciate consultation! Subjective Constitutional: Denies: no symptoms, chills, fever, malaise, weakness, other HEENT: Denies: no symptoms, eye pain, blurred vision, tearing, double vision, ear pain, ear discharge, nose pain, nose congestion, throat pain, throat swelling, mouth pain, mouth swelling, other Respiratory: Denies: no symptoms, cough, shortness of breath, SOB with excertion, SOB at rest, sputum, wheezing, other Gastrointestinal/Abdominal: Denies: no symptoms, abdomen distended, abdominal pain, black stools, tarry stools, blood in stool, constipated, diarrhea, difficulty swallowing, nausea, poor appetite, poor fluid intake, rectal bleeding , vomiting, other Genitourinary: Denies: no symptoms, burning, discharge, frequency, flank pain, hematuria, incontinence, pain, urgency, other Neurologic/Psychiatric: Denies: no symptoms, anxiety, depressed, emotional problems, headache, numbness, paresthesia, pre-existing deficit, seizure, tingling, tremors, weakness, other Endocrine: Denies: no symptoms, excessive sweating, flushing, intolerance to cold, intolerance to heat, increased hunger, increased thirst, increased urine, unexplained weight gain, unexplained weight loss, other Allergies: Coded Allergies: RISPERIDONE (Unverified Allergy, Unknown, 07/04/18) ZIPRASIDONE (Verified Allergy, Unknown, 06/30/18) Subjective 11/06: Pt resting in bed. No acute distress. DC planning. 11/08: Pt asleep in bed. No acute events. 11/10: Pt stable, no signs of acute distress or SOB. Venous duplex negative. 11/11: Pt resting in bed. Afebrile, no sob. MRI brain pending. 11/12: Pt in bed, sleeping. No respiratory distress noted. DC planning. 11/13: Pt awake and alert, refused morning meds. No signs of SOB or pain observed. Plt count significantly improved overnight. 11/15: Pt denies pain, no complaints of dyspnea 11/17: Pt resting in bed no chest pain or dyspnea, no other complaints 11/18: unable to place picc given do not have consent 11/20: no acute events reported. 11/21: pt refused am labs as well as am meds. h/h stable from prior labs. 11/22: pt no acute distress. Afebrile, VS reviewed. 11/23: no events reported, no f/c noted 11/24: refusing to participate in exam, labs have been reviewed 11/25: eating ensure this am, discharge planning pending, deandre CM 11/26: on noac, continues, no bleeding, hgb is 11.2 11/27: refusing labs this am, discussed with him importance 11/28: resting comfortably, no acute events, no bleeding reported, no night sweats 11/29: no events, no bleeding reported, no night sweats 11/30: no events, no bleeding, no chills, no major night sweats 12/01: getting rehab, pt/ot as needed, no f/c 12/02: walking around the priest with a FWW, says feeling better 12/03: given ativan overnight, feeling better 12/04: awake and alert, no acute events, placement pending 12/05: awake and alert, resting in bed, no acute events. 12/06: anxious and aggravated, vs stable, placement pending per field case manager 12/07: no events to report, no f/c, no night sweats refusing po, will start on mirtazpine 12/08: no events noted, no f/c, no night sweats, no bleeding noted 12/09: no events, eating breakfast, cbc again reordered 12/10: no fevers or chills noted, no bleeding, no events, pending placement 12/11: walking around in hallway, no complaints, eating 12/12: labs reviewed, cbc still refusing in the am 12/13: asleep, still refusing labs, no fc 12/14: no events noted, no bleeding, no fc 12/15: not agitated, sinemet has been started per neuro 12/16: dc when public guardian raises money 12/17: dc planning as early as today, alert no complaints this am 12/18: no f/c, no night sweats, no bleeding noted 12/20: is on eliquis, sleeping, i woke him up, again refusing cbc 12/21: no bleeding, no chill, no night sweats, examined with rn, refusing to be seen 12/22: no events to report, no bleeding, no f/c 12/23: on eliquis, has been refusing POs, refusing exam too 12/24: sleeping, arousable, no major events 12/25: no events no bleeding, no chills noted, refusing again exam, and labs 12/27: pending placement, no new recs, no f/c noted, no bleeding 12/28: no fevers or chills noted, no bleeding, still refusing lab draws 12/29: recommended he have labs drawn, he refused 12/30: sergio again reordered labs, he says wont do them 12/31: pending placement, no f/c, no night sweats, dw cm 01/01: no events, no bleeding, sleeping comfortably in bed 01/04: no overnight events, no seizures, pending placement 01/05: no events, on eliquis to continue at this time 01/06: ao x2, no signs of respiratory distress, no fever, labs refused 01/07: cardizem was given as bp was high, still refusing labs at this time 01/08: cbc reviewed, on apixaban and diltiazem, plt count improved 01/10: overall feeling better, laying in bed, labs reviewed, bp better 01/11: with uncontrolled afib, given trop check and dig with Toluie 01/12: awake and confused, on bilat wrist restraints, on eliquis 01/13: reviewed psych and cards recs, on depak/zyprexa and eliquis 01/14: remains agitated at this time, no f/c, have ordered for repeat cbc 01/15: on restraints, no fever or chills, denies pain, labs reviewed 01/16: overall improved, allowed to be examined, no complaints Objective Objective Current Medications Medications (Trade) Dose Ordered Sig/Eduardo Route PRN Reason Start Time Stop Time Status Last Admin Dose Admin Amiodarone HCl (Cordarone) 400 mg EVERY 12 HOURS ORAL 01/12/19 21:00 02/11/19 20:59 01/16/19 08:59 Apixaban (Eliquis) 5 mg BID ORAL 01/09/19 09:00 02/08/19 08:59 01/16/19 09:00 Digoxin (Lanoxin) 0.125 mg DAILY ORAL 01/14/19 09:00 9/26/19 08:59 01/16/19 08:59 Diltiazem HCl (Cardizem CD) 240 mg DAILY ORAL 01/09/19 09:00 02/08/19 08:59 01/16/19 08:59 Divalproex Sodium (Depakote ER) 500 mg BEDTIME ORAL 01/12/19 21:00 02/11/19 20:59 01/15/19 21:02 Levothyroxine Sodium (Synthroid) 25 mcg DAILY@0630 ORAL 01/09/19 06:30 02/08/19 06:29 01/16/19 05:30 Lorazepam (Ativan 2mg/ml 1ml) 1 mg Q4H PRN IV For Anxiety 01/12/19 08:00 01/19/19 07:59 01/15/19 16:13 Olanzapine (ZyPREXA) 30 mg QHS ORAL 01/09/19 21:00 02/08/19 20:59 01/15/19 21:03 Quetiapine Fumarate (SEROquel) 50 mg Q12HR PRN ORAL for agitation 01/09/19 08:45 02/08/19 08:44 01/16/19 11:43 Last 24 Hour Vital Signs Date Time Temp Pulse Resp B/P (MAP) Pulse Ox O2 Delivery O2 Flow Rate FiO2 01/16/19 09:00 Room Air Room Air 01/16/19 08:59 77 01/16/19 08:59 77 155/85 01/16/19 08:00 97.2 77 20 155/85 (108) 99 01/16/19 08:00 76 01/16/19 04:00 85 01/16/19 04:00 97.1 72 19 130/58 (82) 97 01/16/19 00:00 77 01/16/19 00:00 97.5 77 18 116/69 (85) 98 01/15/19 21:00 Room Air Room Air 01/15/19 20:00 78 01/15/19 20:00 98.0 79 18 126/63 (84) 98 01/15/19 16:00 98.0 79 20 132/72 (92) 98 01/15/19 16:00 78 01/15/19 12:00 72 01/15/19 12:00 97.7 77 18 134/84 (101) 97 01/15/19 09:42 70 01/15/19 09:42 70 155/86 01/15/19 09:00 Room Air Room Air 01/15/19 08:00 76 01/15/19 08:00 97.6 70 18 155/86 (109) 98 01/15/19 04:00 98.2 64 18 135/77 (96) 100 01/15/19 04:00 64 01/15/19 00:00 75 01/15/19 00:00 75 01/14/19 21:00 Room Air Room Air 01/14/19 20:00 85 01/14/19 20:00 97.8 85 19 149/91 (110) 96 01/14/19 16:00 75 01/14/19 16:00 97.5 75 22 146/78 (100) 95 01/14/19 12:00 97.2 120 23 137/93 (108) 95 01/14/19 12:00 97 01/14/19 12:00 97.2 120 23 137/93 (108) 95 Intake and Output 01/15/19 01/16/19 18:59 06:59 Intake Total 260 ml Output Total 400 ml Balance -140 ml Intake Oral 260 ml Output Urine Total 400 ml # Voids 3 3 Labs Test 01/14/19 09:35 White Blood Count 5.3 K/UL (4.8-10.8) Red Blood Count 4.55 M/UL (4.70-6.10) Hemoglobin 13.4 G/DL (14.2-18.0) Hematocrit 40.5 % (42.0-52.0) Mean Corpuscular Volume 89 FL (80-99) Mean Corpuscular Hemoglobin 29.6 PG (27.0-31.0) Mean Corpuscular Hemoglobin Concent 33.2 G/DL (32.0-36.0) Red Cell Distribution Width 14.0 % (11.6-14.8) Platelet Count 252 K/UL (150-450) Mean Platelet Volume 5.1 FL (6.5-10.1) Neutrophils (%) (Auto) 58.2 % (45.0-75.0) Lymphocytes (%) (Auto) 22.4 % (20.0-45.0) Monocytes (%) (Auto) 11.0 % (1.0-10.0) Eosinophils (%) (Auto) 5.3 % (0.0-3.0) Basophils (%) (Auto) 3.2 % (0.0-2.0) Height (Feet): 5 Height (Inches): 6.00 Weight (Pounds): 121 Objective PE: VITAL SIGNS: Have been reviewed. CHEST: Clear to auscultation. CV: Regular rate and rhythm. No murmurs or extra sounds. GI: Soft, nontender, and nondistended. No organomegaly. EX: No edema. Moves all four extremities. NEURO: Sensory intact to light touch. Reflexes are equal on both sides. Bennie Goss MD Jan 16, 2019 11:45
[2019-01-16 12:00] VITALS: BP 144/82
--- NOTE | 2019-01-16 14:33 | Cardiac Electrophysiology PN ---
Assessment/Plan Assessment/Plan 1. PAF with RVR based on ECG on 01/02, 01/07, 01/09 and 01/10/19. HR up to 160s. Converted to SR. Continue Dig 0.125 daily, Cardizem CD 240, Amiodarone 400 bid and Eliquis 2. HTN On Cardizem CD 240 3. Dementia 4. Behavioral disorder DW RN Subjective Subjective Remained in SR on Amiodarone. No CP or SOB.Off restraints Objective Last 24 Hour Vital Signs Date Time Temp Pulse Resp B/P (MAP) Pulse Ox O2 Delivery O2 Flow Rate FiO2 01/16/19 12:00 88 01/16/19 12:00 97.9 89 20 144/82 (102) 99 01/16/19 09:00 Room Air Room Air 01/16/19 08:59 77 01/16/19 08:59 77 155/85 01/16/19 08:00 97.2 77 20 155/85 (108) 99 01/16/19 08:00 76 01/16/19 04:00 85 01/16/19 04:00 97.1 72 19 130/58 (82) 97 01/16/19 00:00 77 01/16/19 00:00 97.5 77 18 116/69 (85) 98 01/15/19 21:00 Room Air Room Air 01/15/19 20:00 78 01/15/19 20:00 98.0 79 18 126/63 (84) 98 01/15/19 16:00 98.0 79 20 132/72 (92) 98 01/15/19 16:00 78 Intake and Output 01/15/19 01/16/19 18:59 06:59 Intake Total 260 ml Output Total 400 ml Balance -140 ml Intake Oral 260 ml Output Urine Total 400 ml # Voids 3 3 Objective General Appearance: no apparent distress EENT: PERRL/EOMI Cardiovascular: RRR Abdomen: normal bowel sounds Neurologic: field property loss specialist II-XII grossly normal Armin May MD Jan 16, 2019 14:33
--- NOTE | 2019-01-16 16:00 | NUR ---
HAND-OFF: Report given to ELLA Montgomery. Patient's been transferred to Med-surg per Dr. May order. Patient's in stable condition, no s/s of distress or SOB. site monitor is removed. Charged nurse is notified. Orders are transferred.
--- NOTE | 2019-01-16 16:40 | NUR ---
NURSE NOTES:PT,WAS SEEN AMBULATING INSIDE THE ROOM NAKED,MOOD AGITATED,TURNED THE BEDSIDE CABINET UPSIDE DOWN,REMOVED THE BED LINENS STATED"RO JUST PRACTICING TO GO TO [place] [employer] [place]"REALITY ORIENTATION DONE. HE KNOWS HIS NAME AND HE KNOWS HE IS IN THE HOSPITAL. ASSISTED HIM BACK TO BED.CALL LIGHT WITH IN REACH,BED ALARM ON,SIDE RAILS X3 UP AND BED LOCKED.PRIMARY RN MADE AWARE.WAS MEDICATED WITH ATIVAN IV.WILL MONITOR.
[2019-01-16] MEDS: LORazepam Inj 2mg/ml 1ml IV PRN (16:44)
--- NOTE | 2019-01-16 17:30 | NUR ---
NURSE NOTES: Required to be redirected for attempts of going to restroom unassisted. Bed Alarm alerted staff. " I do not want this shit on" Risk and benefits explained. " I wanted to go to the bathroom but I guess I did already" Provided with care episode of incontinence of urine sheets changed , yellow gown on , call light is in reach . Bed Alarm On
--- NOTE | 2019-01-16 19:16 | General Progress Note ---
Assessment/Plan Status: stable, unchanged Assessment/Plan: 63 y/o man with hx of paroxysmal atrial fibrillation, presented to the hospital with pre-syncope, found to have rapid atrial fibrillation. Patient was admitted with a long hospital course. Initially he was found to be in A. fib with RVR was consulted by cardiology. Echocardiogram was unremarkable with normal EF. Patient has been titrated on several medications for heart rate control and is currently on diltiazem 240 mg p.o. daily. Patient was also continued on Eliquis for stroke prevention given past medical history. Patient was continued on levothyroxine however given his most recent results of his dose was changed from 50 MCG to 25 MCG daily. Patient has been stable and medically cleared for discharge and discharged to assisted living facility called [facility] in [facility]. However, due to insurance problem he was denied and returned to the ER. # Hypertension - Monitor BP, continue Cardizem CD 240 #PAF Converted to SR. Continue Dig 0.125 daily, Cardizem CD 240, Amiodarone 400 bid and Eliquis #Anemia due to chronic illness #Thrombocytopenia, resolved - Hgb and platelet count appeared to be at baseline, seen by Hematology, no new changes recommended. Labs stable. #unstable gait -continue PT #Dementia with behavorial disturbance -psych meds restarted -psychiatry consulted # Disposition Patient discharged to assisted facility on 01/08/19 and returned shortly after denial. Patient pending placement. Difficult placement. Per returned case inspector no insurance available. [facility] reported [facility]. Need to continue efforts by CM and SW to place. time of this note may not reflect time of encounter. I spent 40 minutes on this encounter. Greater than 50% spent of care coordination and counseling. Subjective Date patient seen: Jan 16, 2019 ROS Limited/Unobtainable: No Constitutional: Reports: no symptoms, chills, diaphoresis, fever, malaise, weakness, other HEENT: Denies: no symptoms, eye pain, blurred vision, tearing, double vision, ear pain, ear discharge, nose pain, nose congestion, throat pain, throat swelling, mouth pain, mouth swelling, other Cardiovascular: Denies: no symptoms, chest pain, edema, irregular heart rate, lightheadedness, palpitations, syncope, other Respiratory: Denies: no symptoms, cough, orthopnea, shortness of breath, SOB with excertion, SOB at rest, sputum, stridor, wheezing, other Gastrointestinal/Abdominal: Denies: no symptoms, abdomen distended, abdominal pain, black stools, tarry stools, blood in stool, constipated, diarrhea, difficulty swallowing, nausea, poor appetite, poor fluid intake, rectal bleeding , vomiting, other Genitourinary: Denies: no symptoms, burning, discharge, frequency, flank pain, hematuria, incontinence, pain, urgency, other Neurologic/Psychiatric: Denies: no symptoms, anxiety, depressed, emotional problems, headache, numbness, paresthesia, pre-existing deficit, seizure, tingling, tremors, weakness, other Endocrine: Denies: no symptoms, excessive sweating, flushing, intolerance to cold, intolerance to heat, increased hunger, increased thirst, increased urine, unexplained weight gain, unexplained weight loss, other Hematologic/Lymphatic: Denies: no symptoms, anemia, easy bleeding, easy bruising, other Allergies: Coded Allergies: RISPERIDONE (Unverified Allergy, Unknown, 07/04/18) ZIPRASIDONE (Verified Allergy, Unknown, 06/30/18) Subjective Seen and examined HR controlled after adding amiodarone Denies chest pain, denies sob. Speaks in full sentences Ate lunch and has good appetite Objective Last 24 Hour Vital Signs Date Time Temp Pulse Resp B/P (MAP) Pulse Ox O2 Delivery O2 Flow Rate FiO2 01/16/19 12:00 88 01/16/19 12:00 97.9 89 20 144/82 (102) 99 01/16/19 09:00 Room Air Room Air 01/16/19 08:59 77 01/16/19 08:59 77 155/85 01/16/19 08:00 97.2 77 20 155/85 (108) 99 01/16/19 08:00 76 01/16/19 04:00 85 01/16/19 04:00 97.1 72 19 130/58 (82) 97 01/16/19 00:00 77 01/16/19 00:00 97.5 77 18 116/69 (85) 98 01/15/19 21:00 Room Air Room Air 01/15/19 20:00 78 01/15/19 20:00 98.0 79 18 126/63 (84) 98 Intake and Output 01/15/19 01/16/19 19:00 07:00 Intake Total 140 ml Output Total 400 ml Balance -260 ml Intake Oral 140 ml Output Urine Total 400 ml # Voids 3 3 Height (Feet): 5 Height (Inches): 6.00 Weight (Pounds): 121 General Appearance: alert, thin, alert oriented x3 EENT: PERRL/EOMI Neck: non-tender, supple Cardiovascular: normal rate, regular rhythm, no gallop/murmur Respiratory/Chest: lungs clear, normal breath sounds Abdomen: normal bowel sounds, soft, no organomegaly, no mass Extremities: normal range of motion 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 Jan 16, 2019 19:16
--- NOTE | 2019-01-16 19:20 | NUR ---
HAND-OFF: Report given to Margie JARAMILLO.
--- NOTE | 2019-01-16 19:30 | NUR ---
NURSE NOTES: Received report & pt from ELLA Chahal. Pt lying in bed, a&ox2-3, in room air. No s/s of acute distress & no c/o. IV site intact & S/L'd. Skin intact. Bed in lowest position, bed alarm o for safety precaution, call light within reach. Will continue to monitor.
[2019-01-16] MEDS: OLANZapine 10mg tab ORAL SCH (21:09)
[2019-01-16] MEDS: Depakote ER 500mg tab ORAL SCH (21:09)
[2019-01-17] MEDS: Levothyroxine 25mcg tab ORAL SCH (06:30)
--- NOTE | 2019-01-17 07:30 | NUR ---
HAND-OFF: Report given to ELLA Sams. Pt in stable condition. Rounds done.
--- NOTE | 2019-01-17 07:35 | NUR ---
NURSE NOTES: Patient is in bed asleep. Stable. No signs of distress noted. Breathing is even and unlabored. All safety measures provided. Patient in bed in locked and lowest position with call light within reach. Will continue to monitor.
[2019-01-17 08:00] VITALS: BP 132/79
[2019-01-17] MEDS: dilTIAZem HCl CD 240mg cap ORAL SCH (08:27)
[2019-01-17] MEDS: Amiodarone 200mg tab ORAL SCH (08:27)
[2019-01-17] MEDS: Eliquis 5mg tablet ORAL SCH ×2 (08:27→18:09)
[2019-01-17] MEDS: Digoxin 0.125mg tab ORAL SCH (08:28)
[2019-01-17 12:00] VITALS: BP 132/69
--- NOTE | 2019-01-17 12:30 | NUR ---
NURSE NOTES: Patient appears confused. Patient is naked and told RN that he wants to take a bath in the sink. RN redirected patient. Patient assisted back to bed in locked and lowest position. Seizure precautions provided. All safety measures provided. Will continue to monitor.
--- NOTE | 2019-01-17 15:29 | General Progress Note ---
Assessment/Plan Status: stable, unchanged Assessment/Plan: 63 y/o man with hx of paroxysmal atrial fibrillation, presented to the hospital with pre-syncope, found to have rapid atrial fibrillation. Patient was admitted with a long hospital course. Initially he was found to be in A. fib with RVR was consulted by cardiology. Echocardiogram was unremarkable with normal EF. Patient has been titrated on several medications for heart rate control and is currently on diltiazem 240 mg p.o. daily. Patient was also continued on Eliquis for stroke prevention given past medical history. Patient was continued on levothyroxine however given his most recent results of his dose was changed from 50 MCG to 25 MCG daily. Patient has been stable and medically cleared for discharge and discharged to assisted living facility called [facility] in [facility]. However, due to insurance problem he was denied and returned to the ER. # Hypertension - Monitor BP, continue Cardizem CD 240 #PAF Converted to SR. Continue Dig 0.125 daily, Cardizem CD 240, Amiodarone 400 daily (reduced by cardiology) and Eliquis #Anemia due to chronic illness #Thrombocytopenia, resolved - Hgb and platelet count appeared to be at baseline, seen by Hematology, no new changes recommended. Labs stable. #unstable gait -continue PT #Dementia with behavorial disturbance -psych meds restarted -psychiatry consulted # Disposition Patient discharged to assisted facility on 01/08/19 and returned shortly after denial. Patient pending placement. Difficult placement. Per rn case mgr no insurance available. [facility] reported [facility]. Need to continue efforts by CM and SW to place. Patient is medically stable for discharge time of this note may not reflect time of encounter. I spent 40 minutes on this encounter. Greater than 50% spent of care coordination and counseling. Subjective Date patient seen: Jan 17, 2019 ROS Limited/Unobtainable: No Constitutional: Reports: no symptoms, chills, diaphoresis, fever, malaise, weakness, other HEENT: Denies: no symptoms, eye pain, blurred vision, tearing, double vision, ear pain, ear discharge, nose pain, nose congestion, throat pain, throat swelling, mouth pain, mouth swelling, other Cardiovascular: Denies: no symptoms, chest pain, edema, irregular heart rate, lightheadedness, palpitations, syncope, other Respiratory: Denies: no symptoms, cough, orthopnea, shortness of breath, SOB with excertion, SOB at rest, sputum, stridor, wheezing, other Gastrointestinal/Abdominal: Denies: no symptoms, abdomen distended, abdominal pain, black stools, tarry stools, blood in stool, constipated, diarrhea, difficulty swallowing, nausea, poor appetite, poor fluid intake, rectal bleeding , vomiting, other Allergies: Coded Allergies: RISPERIDONE (Unverified Allergy, Unknown, 07/04/18) ZIPRASIDONE (Verified Allergy, Unknown, 06/30/18) Subjective Seen and examined, stepped down to med surg from tele HR controlled on digoxin, amiodarone and Cardizem Denies chest pain, denies sob. Thinks I look like his fiance. Objective Last 24 Hour Vital Signs Date Time Temp Pulse Resp B/P (MAP) Pulse Ox O2 Delivery O2 Flow Rate FiO2 01/17/19 12:00 98.1 95 18 132/69 (90) 95 01/17/19 08:36 Room Air Room Air 01/17/19 08:28 81 01/17/19 08:27 74 132/79 01/17/19 08:00 98.1 74 18 132/79 (96) 95 01/16/19 21:00 Room Air Room Air Intake and Output 01/16/19 01/17/19 18:59 06:59 Intake Total 370 ml 120 ml Balance 370 ml 120 ml Intake Oral 370 ml 120 ml # Voids 2 2 # Bowel Movements 1 Height (Feet): 5 Height (Inches): 6.00 Weight (Pounds): 121 General Appearance: no apparent distress EENT: PERRL/EOMI Neck: supple Cardiovascular: normal rate, regular rhythm, no JVD Respiratory/Chest: lungs clear Abdomen: soft Extremities: normal range of motion Neurologic: cheese tester II-XII grossly normal Dewey Flores M.D. Jan 17, 2019 15:29
[2019-01-17 16:00] VITALS: BP 136/90
--- NOTE | 2019-01-17 16:00 | Cardiac Electrophysiology PN ---
Assessment/Plan Assessment/Plan 1. PAF with RVR per ECG on 01/02, 01/07, 01/09 and 01/10/19. HR up to 160s. Converted to SR. Continue Dig 0.125 daily, Cardizem CD 240, and Eliquis Decrease Amiodarone to 400 daily 2. HTN On Cardizem CD 240 3. Dementia 4. Behavioral disorder DW RN Subjective Subjective Transferred to [facility]. No CP or SOB.Off restraints Objective Last 24 Hour Vital Signs Date Time Temp Pulse Resp B/P (MAP) Pulse Ox O2 Delivery O2 Flow Rate FiO2 01/17/19 12:00 98.1 95 18 132/69 (90) 95 01/17/19 08:36 Room Air Room Air 01/17/19 08:28 81 01/17/19 08:27 74 132/79 01/17/19 08:00 98.1 74 18 132/79 (96) 95 01/16/19 21:00 Room Air Room Air Intake and Output 01/16/19 01/17/19 18:59 06:59 Intake Total 370 ml 120 ml Balance 370 ml 120 ml Intake Oral 370 ml 120 ml # Voids 2 2 # Bowel Movements 1 Objective General Appearance: no apparent distress EENT: PERRL/EOMI Cardiovascular: RRR Abdomen: normal bowel sounds Neurologic: engine 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
--- NOTE | 2019-01-17 19:47 | NUR ---
HAND-OFF: Report given to Jaz JARAMILLO. Patient is stable.
--- NOTE | 2019-01-17 19:50 | NUR ---
NURSE NOTES: Received report from ELLA Sams. Patient is in bed, awake and alert x2-3. On room air with no signs of distress or SOB. IV intact. Bed locked and in lowest position with call light in reach. Side rails padded for seizure precautions. Will continue to monitor.
[2019-01-17 20:00] VITALS: BP 128/69
[2019-01-17] MEDS: Depakote ER 500mg tab ORAL SCH (21:12)
[2019-01-17] MEDS: OLANZapine 10mg tab ORAL SCH (21:13)
[2019-01-18] MEDS: Levothyroxine 25mcg tab ORAL SCH (06:36)
[2019-01-18 08:00] VITALS: BP 126/82
--- NOTE | 2019-01-18 08:09 | NUR ---
HAND-OFF: Report given to ELLA Figueroa.
--- NOTE | 2019-01-18 09:00 | NUR ---
NURSE NOTES: Patient is in bed asleep. Stable. No facial grimacing or sings of discomfort noted. Breathing is even and unlabored. Patient is in bed in locked and lowest position with call light within reach. All safety measures provided. Will continue to monitor.
--- NOTE | 2019-01-18 09:04 | General Progress Note ---
Assessment/Plan Status: stable, unchanged Assessment/Plan: 63 y/o man with hx of paroxysmal atrial fibrillation, presented to the hospital with pre-syncope, found to have rapid atrial fibrillation. Patient was admitted with a long hospital course. Initially he was found to be in A. fib with RVR was consulted by cardiology. Echocardiogram was unremarkable with normal EF. Patient has been titrated on several medications for heart rate control and is currently on diltiazem 240 mg p.o. daily. Patient was also continued on Eliquis for stroke prevention given past medical history. Patient was continued on levothyroxine however given his most recent results of his dose was changed from 50 MCG to 25 MCG daily. Patient has been stable and medically cleared for discharge and discharged to assisted living facility called [facility] in [facility]. However, due to insurance problem he was denied and returned to the ER. # Hypertension - Monitor BP, continue Cardizem CD 240 #PAF Converted to SR. Continue Dig 0.125 daily, Cardizem CD 240, Amiodarone 400 daily (reduced by cardiology) and Eliquis #Anemia due to chronic illness #Thrombocytopenia, resolved - Hgb and platelet count appeared to be at baseline, seen by Hematology, no new changes recommended. Labs stable. #unstable gait -continue PT #Dementia with behavorial disturbance -psych meds restarted -psychiatry consulted # Disposition Patient discharged to assisted facility on 01/08/19 and returned shortly after denial. Patient pending placement. Difficult placement. Per sample case porter no insurance available. [facility] Need to continue efforts by CM and SW to place. Patient is medically stable for discharge time of this note may not reflect time of encounter. I spent 40 minutes on this encounter. Greater than 50% spent of care coordination and counseling. Subjective Date patient seen: Jan 18, 2019 ROS Limited/Unobtainable: No Constitutional: Denies: no symptoms, chills, diaphoresis, fever, malaise, weakness, other HEENT: Denies: no symptoms, eye pain, blurred vision, tearing, double vision, ear pain, ear discharge, nose pain, nose congestion, throat pain, throat swelling, mouth pain, mouth swelling, other Cardiovascular: Denies: no symptoms, chest pain, edema, irregular heart rate, lightheadedness, palpitations, syncope, other Respiratory: Denies: no symptoms, cough, orthopnea, shortness of breath, SOB with excertion, SOB at rest, sputum, stridor, wheezing, other Gastrointestinal/Abdominal: Denies: no symptoms, abdomen distended, abdominal pain, black stools, tarry stools, blood in stool, constipated, diarrhea, difficulty swallowing, nausea, poor appetite, poor fluid intake, rectal bleeding , vomiting, other Genitourinary: Denies: no symptoms, burning, discharge, frequency, flank pain, hematuria, incontinence, pain, urgency, other Neurologic/Psychiatric: Denies: no symptoms, anxiety, depressed, emotional problems, headache, numbness, paresthesia, pre-existing deficit, seizure, tingling, tremors, weakness, other Endocrine: Denies: no symptoms, excessive sweating, flushing, intolerance to cold, intolerance to heat, increased hunger, increased thirst, increased urine, unexplained weight gain, unexplained weight loss, other Hematologic/Lymphatic: Denies: no symptoms, anemia, easy bleeding, easy bruising, other Allergies: Coded Allergies: RISPERIDONE (Unverified Allergy, Unknown, 07/04/18) ZIPRASIDONE (Verified Allergy, Unknown, 06/30/18) Subjective Seen and examined. No complaints,medically stable Objective Last 24 Hour Vital Signs Date Time Temp Pulse Resp B/P (MAP) Pulse Ox O2 Delivery O2 Flow Rate FiO2 01/17/19 21:00 Room Air Room Air 01/17/19 20:00 97.7 91 18 128/69 (88) 95 01/17/19 16:00 97.6 90 18 136/90 (105) 96 01/17/19 12:00 98.1 95 18 132/69 (90) 95 Intake and Output 01/17/19 01/18/19 19:00 07:00 Output Total 1200 ml Balance -1200 ml Output Urine Total 1200 ml # Voids 4 3 Height (Feet): 5 Height (Inches): 6.00 Weight (Pounds): 121 Objective General Appearance: no apparent distress EENT: PERRL/EOMI Neck: supple Cardiovascular: normal rate, regular rhythm, no JVD Respiratory/Chest: lungs clear Abdomen: soft Extremities: normal range of motion 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 Jan 18, 2019 09:04
[2019-01-18] MEDS: Eliquis 5mg tablet ORAL SCH ×2 (09:09→17:35)
[2019-01-18] MEDS: Digoxin 0.125mg tab ORAL SCH (09:10)
[2019-01-18] MEDS: dilTIAZem HCl CD 240mg cap ORAL SCH (09:10)
[2019-01-18] MEDS: Amiodarone 200mg tab ORAL SCH (09:10)
[2019-01-18] MEDS: LORazepam Inj 2mg/ml 1ml IV PRN ×2 (11:13→18:14)
[2019-01-18 12:00] VITALS: BP 122/73
--- NOTE | 2019-01-18 12:59 | Cardiac Electrophysiology PN ---
Assessment/Plan Assessment/Plan 1. PAF with RVR per ECG on 01/02, 01/07, 01/09 and 01/10/19. HR up to 160s. Converted to SR. Continue Dig 0.125 daily, Cardizem CD 240, and Eliquis and Amiodarone 400 daily 2. HTN On Cardizem CD 240 3. Dementia 4. Behavioral disorder DW RN Subjective Subjective No CP or SOB.Off restraints. 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
--- NOTE | 2019-01-18 19:30 | NUR ---
HAND-OFF: Report given to Neville JARAMILLO. Patient is stable.
--- NOTE | 2019-01-18 19:36 | NUR ---
NURSE NOTES: Patient in bed currently asleep. No bedsheet on patients bed bec patient keeps on removing it. No signs of distress noted. Call light within reach. Bed is locked and in low position. Seizure precautions. Needs attended. In stable condition.
--- NOTE | 2019-01-18 19:58 | Hematology/Onc Progress Note ---
Assessment/Plan Assessment/Plan # Anemia of chronic disease due to underlying chronic medical issues, multifactorial --> Anemia workup has been reviewed. Ferritin 83, TIBC 242 --> No evidence of hemolysis is noted, peripheral smear has been reviewed. --> Hgb goal >7. Transfuse prn. --> Epogen or iron at this time is not particularly indicated --> Medications have been reviewed --> hgb trend 14.1-->12.5--> 12.3-->11-->11.2-->10-->14.1-->13.4 --> get labs in few dayys # Thrombocytopenia - potential causes multifactorial, evaluate liver and viral etiologies to begin, also could be related to underlying medications patient has received. --> Hep panel and HIV on PRIOR admission was negative --> US abd negative for cirrhosis and hsm --> Peripheral smear ordered to evaluate for blasts/schistocytes, none noted --> abx and other meds have been reviewed (one contributor could be depakote) --> ok for ppx if plt >50k w/ either heparin or lovenox --> Plt trend 118-->169k-->187k--> 102K->133k-->154k-->182k-->258-->252 # FTT with decreased bmi on admission --> began on mirtazapine, to continue at this time --> daily weight and monitor # Atelectasis, optimize pulmonary hygiene/mobilize as tolerated --> on cxr appears stable --> per pulm recs # Paroxysmal AFib, per cardiology recs--> on noac --> on eliquis (ok to continue) --> dig per Dr. May # Hypertension --> controlled, sbp goal <140 --> as per cards # Hypothyroidism --> Synthroid po to continue # Lactic acidosis --> has resolved # MACARENA which has resolved --> per renal care # Psych d/o --> per psych on depak, zyprexa # Placement pending --> rehab, and pt/ot --> difficult with placement with insurance --> daily dw cms The timing of this note does not necessarily reflect the time of the patient was seen. Greatly appreciate consultation! Subjective Respiratory: Denies: no symptoms, cough, shortness of breath, SOB with excertion, SOB at rest, sputum, wheezing, other Gastrointestinal/Abdominal: Denies: no symptoms, abdomen distended, abdominal pain, black stools, tarry stools, blood in stool, constipated, diarrhea, difficulty swallowing, nausea, poor appetite, poor fluid intake, rectal bleeding , vomiting, other Neurologic/Psychiatric: Denies: no symptoms, anxiety, depressed, emotional problems, headache, numbness, paresthesia, pre-existing deficit, seizure, tingling, tremors, weakness, other Endocrine: Denies: no symptoms, excessive sweating, flushing, intolerance to cold, intolerance to heat, increased hunger, increased thirst, increased urine, unexplained weight gain, unexplained weight loss, other Allergies: Coded Allergies: RISPERIDONE (Unverified Allergy, Unknown, 07/04/18) ZIPRASIDONE (Verified Allergy, Unknown, 06/30/18) Subjective 11/06: Pt resting in bed. No acute distress. DC planning. 11/08: Pt asleep in bed. No acute events. 11/10: Pt stable, no signs of acute distress or SOB. Venous duplex negative. 11/11: Pt resting in bed. Afebrile, no sob. MRI brain pending. 11/12: Pt in bed, sleeping. No respiratory distress noted. DC planning. 11/13: Pt awake and alert, refused morning meds. No signs of SOB or pain observed. Plt count significantly improved overnight. 11/15: Pt denies pain, no complaints of dyspnea 11/17: Pt resting in bed no chest pain or dyspnea, no other complaints 11/18: unable to place picc given do not have consent 11/20: no acute events reported. 11/21: pt refused am labs as well as am meds. h/h stable from prior labs. 11/22: pt no acute distress. Afebrile, VS reviewed. 11/23: no events reported, no f/c noted 11/24: refusing to participate in exam, labs have been reviewed 11/25: eating ensure this am, discharge planning pending, dw CM 11/26: on noac, continues, no bleeding, hgb is 11.2 11/27: refusing labs this am, discussed with him importance 11/28: resting comfortably, no acute events, no bleeding reported, no night sweats 11/29: no events, no bleeding reported, no night sweats 11/30: no events, no bleeding, no chills, no major night sweats 12/01: getting rehab, pt/ot as needed, no f/c 12/02: walking around the priest with a FWW, says feeling better 12/03: given ativan overnight, feeling better 12/04: awake and alert, no acute events, placement pending 12/05: awake and alert, resting in bed, no acute events. 12/06: anxious and aggravated, vs stable, placement pending per manager shipping 12/07: no events to report, no f/c, no night sweats refusing po, will start on mirtazpine 12/08: no events noted, no f/c, no night sweats, no bleeding noted 12/09: no events, eating breakfast, cbc again reordered 12/10: no fevers or chills noted, no bleeding, no events, pending placement 12/11: walking around in hallway, no complaints, eating 12/12: labs reviewed, cbc still refusing in the am 12/13: asleep, still refusing labs, no fc 12/14: no events noted, no bleeding, no fc 12/15: not agitated, sinemet has been started per neuro 12/16: dc when public guardian raises money 12/17: dc planning as early as today, alert no complaints this am 12/18: no f/c, no night sweats, no bleeding noted 12/20: is on eliquis, sleeping, i woke him up, again refusing cbc 12/21: no bleeding, no chill, no night sweats, examined with rn, refusing to be seen 12/22: no events to report, no bleeding, no f/c 12/23: on eliquis, has been refusing POs, refusing exam too 12/24: sleeping, arousable, no major events 12/25: no events no bleeding, no chills noted, refusing again exam, and labs 12/27: pending placement, no new recs, no f/c noted, no bleeding 12/28: no fevers or chills noted, no bleeding, still refusing lab draws 12/29: recommended he have labs drawn, he refused 12/30: sergio again reordered labs, he says wont do them 12/31: pending placement, no f/c, no night sweats, dw cm 01/01: no events, no bleeding, sleeping comfortably in bed 01/04: no overnight events, no seizures, pending placement 01/05: no events, on eliquis to continue at this time 01/06: ao x2, no signs of respiratory distress, no fever, labs refused 01/07: cardizem was given as bp was high, still refusing labs at this time 01/08: cbc reviewed, on apixaban and diltiazem, plt count improved 01/10: overall feeling better, laying in bed, labs reviewed, bp better 01/11: with uncontrolled afib, given trop check and dig with Toluie 01/12: awake and confused, on bilat wrist restraints, on eliquis 01/13: reviewed psych and cards recs, on depak/zyprexa and eliquis 01/14: remains agitated at this time, no f/c, have ordered for repeat cbc 01/15: on restraints, no fever or chills, denies pain, labs reviewed 01/16: overall improved, allowed to be examined, no complaints Objective Objective Current Medications Medications (Trade) Dose Ordered Sig/Eduardo Route PRN Reason Start Time Stop Time Status Last Admin Dose Admin Amiodarone HCl (Cordarone) 400 mg DAILY ORAL 01/18/19 09:00 02/11/19 20:59 01/18/19 09:10 Apixaban (Eliquis) 5 mg BID ORAL 01/16/19 18:00 02/08/19 08:59 01/18/19 17:35 Digoxin (Lanoxin) 0.125 mg DAILY ORAL 01/17/19 09:00 02/11/19 08:59 01/18/19 09:10 Diltiazem HCl (Cardizem CD) 240 mg DAILY ORAL 01/17/19 09:00 02/08/19 08:59 01/18/19 09:10 Divalproex Sodium (Depakote ER) 500 mg BEDTIME ORAL 01/16/19 21:00 02/11/19 20:59 01/17/19 21:12 Levothyroxine Sodium (Synthroid) 25 mcg DAILY@0630 ORAL 01/17/19 06:30 02/08/19 06:29 01/18/19 06:36 Lorazepam (Ativan 2mg/ml 1ml) 1 mg Q4H PRN IV For Anxiety 01/16/19 16:30 01/19/19 16:29 01/18/19 18:14 Olanzapine (ZyPREXA) 30 mg QHS ORAL 01/16/19 21:00 02/08/19 20:59 01/17/19 21:13 Quetiapine Fumarate (SEROquel) 50 mg Q12H PRN ORAL for agitation 01/16/19 16:30 02/15/19 16:29 01/18/19 14:19 Last 24 Hour Vital Signs Date Time Temp Pulse Resp B/P (MAP) Pulse Ox O2 Delivery O2 Flow Rate FiO2 01/18/19 12:00 98.3 111 19 122/73 (89) 100 01/18/19 09:10 119 126/82 01/18/19 09:10 119 01/18/19 09:00 Room Air Room Air 01/18/19 08:00 98.2 119 19 126/82 (97) 99 01/17/19 21:00 Room Air Room Air 01/17/19 20:00 97.7 91 18 128/69 (88) 95 01/17/19 16:00 97.6 90 18 136/90 (105) 96 01/17/19 12:00 98.1 95 18 132/69 (90) 95 01/17/19 08:36 Room Air Room Air 01/17/19 08:28 81 01/17/19 08:27 74 132/79 01/17/19 08:00 98.1 74 18 132/79 (96) 95 01/16/19 21:00 Room Air Room Air Intake and Output 01/17/19 01/18/19 19:00 07:00 Output Total 1200 ml Balance -1200 ml Output Urine Total 1200 ml # Voids 4 3 Height (Feet): 5 Height (Inches): 6.00 Weight (Pounds): 121 Objective PE: VITAL SIGNS: Have been reviewed. CHEST: Clear to auscultation. CV: Regular rate and rhythm. No murmurs or extra sounds. GI: Soft, nontender, and nondistended. No organomegaly. EX: No edema. Moves all four extremities. NEURO: Sensory intact to light touch. Reflexes are equal on both sides. Bennie Goss MD Jan 18, 2019 19:58
[2019-01-18 20:00] VITALS: BP 125/84
[2019-01-18] MEDS: OLANZapine 10mg tab ORAL SCH (20:37)
[2019-01-18] MEDS: Depakote ER 500mg tab ORAL SCH (20:38)
--- NOTE | 2019-01-18 21:24 | Hematology/Onc Progress Note ---
Assessment/Plan Assessment/Plan LATE ENTRY NOTE 01/17/2019 Assessment/Plan Assessment/Plan Assessment/Plan # Anemia of chronic disease due to underlying chronic medical issues, multifactorial --> Anemia workup has been reviewed. Ferritin 83, TIBC 242 --> No evidence of hemolysis is noted, peripheral smear has been reviewed. --> Hgb goal >7. Transfuse prn. --> Epogen or iron at this time is not particularly indicated --> Medications have been reviewed --> hgb trend 14.1-->12.5--> 12.3-->11-->11.2-->10-->14.1-->13.4 --> get labs in few dayys # Thrombocytopenia - potential causes multifactorial, evaluate liver and viral etiologies to begin, also could be related to underlying medications patient has received. --> Hep panel and HIV on PRIOR admission was negative --> US abd negative for cirrhosis and hsm --> Peripheral smear ordered to evaluate for blasts/schistocytes, none noted --> abx and other meds have been reviewed (one contributor could be depakote) --> ok for ppx if plt >50k w/ either heparin or lovenox --> Plt trend 118-->169k-->187k--> 102K->133k-->154k-->182k-->258-->252 # FTT with decreased bmi on admission --> began on mirtazapine, to continue at this time --> daily weight and monitor # Atelectasis, optimize pulmonary hygiene/mobilize as tolerated --> on cxr appears stable --> per pulm recs # Paroxysmal AFib, per cardiology recs--> on noac --> on eliquis (ok to continue) --> dig per Dr. May # Hypertension --> controlled, sbp goal <140 --> as per cards # Hypothyroidism --> Synthroid po to continue # Lactic acidosis --> has resolved # MACARENA which has resolved --> per renal care # Psych d/o --> per psych on depak, zyprexa # Placement pending --> rehab, and pt/ot --> difficult with placement with insurance --> daily dw cms The timing of this note does not necessarily reflect the time of the patient was seen. Greatly appreciate consultation! Subjective Allergies: Coded Allergies: RISPERIDONE (Unverified Allergy, Unknown, 07/04/18) ZIPRASIDONE (Verified Allergy, Unknown, 06/30/18) Subjective Subjective 11/06: Pt resting in bed. No acute distress. DC planning. 11/08: Pt asleep in bed. No acute events. 11/10: Pt stable, no signs of acute distress or SOB. Venous duplex negative. 11/11: Pt resting in bed. Afebrile, no sob. MRI brain pending. 11/12: Pt in bed, sleeping. No respiratory distress noted. DC planning. 11/13: Pt awake and alert, refused morning meds. No signs of SOB or pain observed. Plt count significantly improved overnight. 11/15: Pt denies pain, no complaints of dyspnea 11/17: Pt resting in bed no chest pain or dyspnea, no other complaints 11/18: unable to place picc given do not have consent 11/20: no acute events reported. 11/21: pt refused am labs as well as am meds. h/h stable from prior labs. 11/22: pt no acute distress. Afebrile, VS reviewed. 11/23: no events reported, no f/c noted 11/24: refusing to participate in exam, labs have been reviewed 11/25: eating ensure this am, discharge planning pending, deandre FERRARI 11/26: on noac, continues, no bleeding, hgb is 11.2 11/27: refusing labs this am, discussed with him importance 11/28: resting comfortably, no acute events, no bleeding reported, no night sweats 11/29: no events, no bleeding reported, no night sweats 11/30: no events, no bleeding, no chills, no major night sweats 12/01: getting rehab, pt/ot as needed, no f/c 12/02: walking around the priest with a FWW, says feeling better 12/03: given ativan overnight, feeling better 12/04: awake and alert, no acute events, placement pending 12/05: awake and alert, resting in bed, no acute events. 12/06: anxious and aggravated, vs stable, placement pending per field nurse case manager 12/07: no events to report, no f/c, no night sweats refusing po, will start on mirtazpine 12/08: no events noted, no f/c, no night sweats, no bleeding noted 12/09: no events, eating breakfast, cbc again reordered 12/10: no fevers or chills noted, no bleeding, no events, pending placement 12/11: walking around in hallway, no complaints, eating 12/12: labs reviewed, cbc still refusing in the am 12/13: asleep, still refusing labs, no fc 12/14: no events noted, no bleeding, no fc 12/15: not agitated, sinemet has been started per neuro 12/16: dc when public guardian raises money 12/17: dc planning as early as today, alert no complaints this am 12/18: no f/c, no night sweats, no bleeding noted 12/20: is on eliquis, sleeping, i woke him up, again refusing cbc 12/21: no bleeding, no chill, no night sweats, examined with rn, refusing to be seen 12/22: no events to report, no bleeding, no f/c 12/23: on eliquis, has been refusing POs, refusing exam too 12/24: sleeping, arousable, no major events 12/25: no events no bleeding, no chills noted, refusing again exam, and labs 12/27: pending placement, no new recs, no f/c noted, no bleeding 12/28: no fevers or chills noted, no bleeding, still refusing lab draws 12/29: recommended he have labs drawn, he refused 12/30: sergio again reordered labs, he says wont do them 12/31: pending placement, no f/c, no night sweats, dw cm 01/01: no events, no bleeding, sleeping comfortably in bed 01/04: no overnight events, no seizures, pending placement 01/05: no events, on eliquis to continue at this time 01/06: ao x2, no signs of respiratory distress, no fever, labs refused 01/07: cardizem was given as bp was high, still refusing labs at this time 01/08: cbc reviewed, on apixaban and diltiazem, plt count improved 01/10: overall feeling better, laying in bed, labs reviewed, bp better 01/11: with uncontrolled afib, given trop check and dig with Toluie 01/12: awake and confused, on bilat wrist restraints, on eliquis 01/13: reviewed psych and cards recs, on depak/zyprexa and eliquis 01/14: remains agitated at this time, no f/c, have ordered for repeat cbc 01/15: on restraints, no fever or chills, denies pain, labs reviewed 01/16: overall improved, allowed to be examined, no complaints 01/17: no new events reported. no bleeding noted. Objective Objective Current Medications Medications (Trade) Dose Ordered Sig/Eduardo Route PRN Reason Start Time Stop Time Status Last Admin Dose Admin Amiodarone HCl (Cordarone) 400 mg DAILY ORAL 01/18/19 09:00 02/11/19 20:59 01/18/19 09:10 Apixaban (Eliquis) 5 mg BID ORAL 01/16/19 18:00 02/08/19 08:59 01/18/19 17:35 Digoxin (Lanoxin) 0.125 mg DAILY ORAL 01/17/19 09:00 02/11/19 08:59 01/18/19 09:10 Diltiazem HCl (Cardizem CD) 240 mg DAILY ORAL 01/17/19 09:00 02/08/19 08:59 01/18/19 09:10 Divalproex Sodium (Depakote ER) 500 mg BEDTIME ORAL 01/16/19 21:00 02/11/19 20:59 01/18/19 20:38 Levothyroxine Sodium (Synthroid) 25 mcg DAILY@0630 ORAL 01/17/19 06:30 02/08/19 06:29 01/18/19 06:36 Lorazepam (Ativan 2mg/ml 1ml) 1 mg Q4H PRN IV For Anxiety 01/16/19 16:30 01/19/19 16:29 01/18/19 18:14 Olanzapine (ZyPREXA) 30 mg QHS ORAL 01/16/19 21:00 02/08/19 20:59 01/18/19 20:37 Quetiapine Fumarate (SEROquel) 50 mg Q12H PRN ORAL for agitation 01/16/19 16:30 02/15/19 16:29 01/18/19 14:19 Last 24 Hour Vital Signs Date Time Temp Pulse Resp B/P (MAP) Pulse Ox O2 Delivery O2 Flow Rate FiO2 01/18/19 20:00 98.1 99 17 125/84 (98) 98 01/18/19 12:00 98.3 111 19 122/73 (89) 100 01/18/19 09:10 119 126/82 01/18/19 09:10 119 01/18/19 09:00 Room Air Room Air 01/18/19 08:00 98.2 119 19 126/82 (97) 99 01/17/19 21:00 Room Air Room Air 01/17/19 20:00 97.7 91 18 128/69 (88) 95 01/17/19 16:00 97.6 90 18 136/90 (105) 96 01/17/19 12:00 98.1 95 18 132/69 (90) 95 01/17/19 08:36 Room Air Room Air 01/17/19 08:28 81 01/17/19 08:27 74 132/79 01/17/19 08:00 98.1 74 18 132/79 (96) 95 Intake and Output 01/17/19 01/18/19 19:00 07:00 Output Total 1200 ml Balance -1200 ml Output Urine Total 1200 ml # Voids 4 3 Height (Feet): 5 Height (Inches): 6.00 Weight (Pounds): 121 Objective Objective PE: VITAL SIGNS: Have been reviewed. CHEST: Clear to auscultation. CV: Regular rate and rhythm. No murmurs or extra sounds. GI: Soft, nontender, and nondistended. No organomegaly. EX: No edema. Moves all four extremities. NEURO: Sensory intact to light touch. Reflexes are equal on both sides. Kristen Cruz NP Jan 18, 2019 21:24
--- NOTE | 2019-01-19 00:20 | NUR ---
NURSE NOTES: Patient in bed asleep. Used the urinal once. No pain. No SOB. In stable condition. Endorsed to Zander JARAMILLO.
--- NOTE | 2019-01-19 00:30 | NUR ---
NURSE NOTES: Receive a report from ELLA Lozada. Round is done. Pt is asleep with bed alarm on. Urinal and call light within reach. Bed is locked and lowest. No seizure noted. Will continue to monitor.
[2019-01-19 04:00] VITALS: BP 140/89
[2019-01-19] MEDS: Levothyroxine 25mcg tab ORAL SCH (07:05)
[2019-01-19 07:08] LABS: ANION GAP 10 mmol/L (5-15); BLOOD UREA NITROGEN 30 mg/dL (7-18); CALCIUM 9.4 MG/DL (8.5-10.1); CARBON DIOXIDE 27 MMOL/L (21-32); CHLORIDE 103 MMOL/L (98-107); CREATININE 1.2 MG/DL (0.55-1.30); POTASSIUM 4.1 MMOL/L (3.5-5.1); SODIUM 140 MMOL/L (136-145)
--- NOTE | 2019-01-19 07:20 | NUR ---
HAND-OFF: Report given to ELLA Garnett. Round is done. Pt is eating breakfast. No acute distress noted.
--- NOTE | 2019-01-19 07:30 | NUR ---
NURSE NOTES: WALKING ROUNDS DONE WITH OUTGOING RN. PATIENT AWAKE IN BED HAVING BREAKFAST. AOX1.QUESTINS ANSWERED , NEEDS MET, DISCUSSED PLAN OF CARE FOR THE DAY. VERBALIZED UNDERSTANDING. BED IN LOW AND LOCKED POSITION. CALL LIGHT WITHIN REACH.
[2019-01-19 08:16] VITALS: BP 116/69
[2019-01-19] MEDS: Amiodarone 200mg tab ORAL SCH (08:24)
[2019-01-19] MEDS: dilTIAZem HCl CD 240mg cap ORAL SCH (08:25)
[2019-01-19] MEDS: Eliquis 5mg tablet ORAL SCH ×2 (08:25→17:42)
[2019-01-19] MEDS: Digoxin 0.125mg tab ORAL SCH (08:25)
[2019-01-19] MEDS: LORazepam Inj 2mg/ml 1ml IV PRN (08:25)
--- NOTE | 2019-01-19 10:00 | NUR ---
NURSE NOTES: SIDERAILS PADDED DUE TO PAST SEIZURE ACTIVITY. BED IN LOW AND LOCKED POSITION, CALL LIGHT WITHIN REACH. BED ALARM ACTIVATED.WILL CONTINUE TO ASSESS FOR SEIZURES.
--- NOTE | 2019-01-19 11:11 | NUR ---
CASE MANAGEMENT:REVIEW 01/19/19 SI: HYPOTENSION. AFIB W/RVR 98.0 102 19 116/69 98% ON RA IS: AMIODARONE PO Q12 DEPAKOTE PO QHS DIGOXIN PO QD SYNTHROID PO QD ZYPREXA PO QHS CARDIZEM PO QD ELIQUIS PO BID SEROQUEL PO Q12 PRN : TELEMETRY STATUS PLAN: SEEKING PLACEMENT
--- NOTE | 2019-01-19 11:28 | Cardiac Electrophysiology PN ---
Assessment/Plan Assessment/Plan 1. PAF with RVR HR up to 160s per ECG on 01/02, 01/07, 01/09 and 01/10/19. Converted to SR. Continue Dig 0.125 daily, Cardizem CD 240, Eliquis and Amiodarone 400 daily 2. HTN On Cardizem CD 240 3. Dementia 4. Behavioral disorder DW RN Subjective Subjective No CP or SOB off restraints. Placement pending Objective Last 24 Hour Vital Signs Date Time Temp Pulse Resp B/P (MAP) Pulse Ox O2 Delivery O2 Flow Rate FiO2 01/19/19 09:00 Room Air Room Air 01/19/19 08:25 102 116/69 01/19/19 08:25 102 01/19/19 08:16 98.0 102 19 116/69 (85) 98 01/19/19 04:00 98.2 89 18 140/89 (106) 95 01/18/19 21:00 Room Air Room Air 01/18/19 20:00 98.1 99 17 125/84 (98) 98 01/18/19 12:00 98.3 111 19 122/73 (89) 100 Intake and Output 01/18/19 01/19/19 19:00 07:00 Output Total 700 ml Balance -700 ml Output Urine Total 700 ml # Voids 2 5 Laboratory Tests Test 01/19/19 05:15 Sodium Level 140 MMOL/L (136-145) Potassium Level 4.1 MMOL/L (3.5-5.1) Chloride Level 103 MMOL/L (98-107) Carbon Dioxide Level 27 MMOL/L (21-32) Anion Gap 10 mmol/L (5-15) Blood Urea Nitrogen 30 mg/dL (7-18) H Creatinine 1.2 MG/DL (0.55-1.30) Estimat Glomerular Filtration Rate > 60 mL/min (>60) Glucose Level 83 MG/DL (74-106) Calcium Level 9.4 MG/DL (8.5-10.1) Digoxin Level 1.0 NG/ML (0.5-2.0) Objective General Appearance: no apparent distress EENT: PERRL/EOMI Cardiovascular: RRR Abdomen: normal bowel sounds Neurologic: tire retreader II-XII grossly normal Armin May MD Jan 19, 2019 11:28
--- NOTE | 2019-01-19 11:53 | NUR ---
RD ASSESSMENT & RECOMMENDATIONS SEE CARE ACTIVITY FOR COMPLETE ASSESSMENT DAILY ESTIMATED NEEDS: Needs based on cardiac/ 56kg 25-30 kcals/kg 6988-2621 total kcals 1-1.5 g protein/kg 56-84 g total protein 25-30 mL/kg 8304-8590 total fluid mLs NUTRITION DIAGNOSIS: Increased kcal/prot intake needs R/T wt loss as evidenced by pt admitted w/ possible significant wt loss of 23lbs/17.5% in 4 months, poor PO intake upon adm, now w/ improved PO intake w/ possible wt gain. CURRENT DIET:REGULAR + Ensure Enlive x2 PO DIET RECOMMENDATIONS: Maintain liberalized REGULAR diet + continue Ensure Enlive TID w/ meals ADDITIONAL RECOMMENDATIONS: * Calibrated bedscale wt on 12/26=56.4kg (124lbs) -> rec weekly wt monitoring given h/o possible wt loss, variable PO * Vit D 1000 IU daily (low Vit D25=29) * Monitor PO intake closely -> now improved again, h/o refusing meals * Ensure Enlive MAXIMUM 4-5x per day (350kcal/20g prot per bottle) . .
[2019-01-19 12:00] VITALS: BP 104/68
--- NOTE | 2019-01-19 12:53 | General Progress Note ---
Assessment/Plan Status: stable, unchanged Assessment/Plan: 63 y/o man with hx of paroxysmal atrial fibrillation, presented to the hospital with pre-syncope, found to have rapid atrial fibrillation. Patient was admitted with a long hospital course. Initially he was found to be in A. fib with RVR was consulted by cardiology. Echocardiogram was unremarkable with normal EF. Patient has been titrated on several medications for heart rate control and is currently on diltiazem 240 mg p.o. daily. Patient was also continued on Eliquis for stroke prevention given past medical history. Patient was continued on levothyroxine however given his most recent results his dose was changed from 50 MCG to 25 MCG daily. Patient has been stable and medically cleared for discharge and discharged to assisted living facility called [facility] in [facility]. However, due to insurance problem he was denied and returned to the ER. # Hypertension - Monitor BP, continue Cardizem CD 240 #PAF Converted to SR. Continue Dig 0.125 daily, Cardizem CD 240, Amiodarone 400 daily (reduced by cardiology) and Eliquis #Anemia due to chronic illness #Thrombocytopenia, resolved - Hgb and platelet count appeared to be at baseline, seen by Hematology, no new changes recommended. Labs stable. #unstable gait -continue PT #Dementia with behavorial disturbance -psych meds restarted -psychiatry consulted # Disposition Patient discharged to assisted facility on 01/08/19 and returned shortly after denial. Patient pending placement. Difficult placement. Per case liner no insurance available. [facility]. Need to continue efforts by CM and SW to place. Patient is medically stable for discharge time of this note may not reflect time of encounter. I spent 40 minutes on this encounter. Greater than 50% spent of care coordination and counseling. Subjective Date patient seen: Jan 19, 2019 ROS Limited/Unobtainable: No Constitutional: Denies: no symptoms, chills, diaphoresis, fever, malaise, weakness, other HEENT: Denies: no symptoms, eye pain, blurred vision, tearing, double vision, ear pain, ear discharge, nose pain, nose congestion, throat pain, throat swelling, mouth pain, mouth swelling, other Cardiovascular: Denies: no symptoms, chest pain, edema, irregular heart rate, lightheadedness, palpitations, syncope, other Respiratory: Denies: no symptoms, cough, orthopnea, shortness of breath, SOB with excertion, SOB at rest, sputum, stridor, wheezing, other Gastrointestinal/Abdominal: Denies: no symptoms, abdomen distended, abdominal pain, black stools, tarry stools, blood in stool, constipated, diarrhea, difficulty swallowing, nausea, poor appetite, poor fluid intake, rectal bleeding , vomiting, other Genitourinary: Denies: no symptoms, burning, discharge, frequency, flank pain, hematuria, incontinence, pain, urgency, other Neurologic/Psychiatric: Denies: no symptoms, anxiety, depressed, emotional problems, headache, numbness, paresthesia, pre-existing deficit, seizure, tingling, tremors, weakness, other Endocrine: Denies: no symptoms, excessive sweating, flushing, intolerance to cold, intolerance to heat, increased hunger, increased thirst, increased urine, unexplained weight gain, unexplained weight loss, other Hematologic/Lymphatic: Denies: no symptoms, anemia, easy bleeding, easy bruising, other Allergies: Coded Allergies: RISPERIDONE (Unverified Allergy, Unknown, 07/04/18) ZIPRASIDONE (Verified Allergy, Unknown, 06/30/18) All Systems: reviewed and negative except above Subjective Seen and examined. No complaints,medically stable Objective Last 24 Hour Vital Signs Date Time Temp Pulse Resp B/P (MAP) Pulse Ox O2 Delivery O2 Flow Rate FiO2 01/19/19 12:00 98.4 97 20 104/68 (80) 99 01/19/19 09:00 Room Air Room Air 01/19/19 08:25 102 116/69 01/19/19 08:25 102 01/19/19 08:16 98.0 102 19 116/69 (85) 98 01/19/19 04:00 98.2 89 18 140/89 (106) 95 01/18/19 21:00 Room Air Room Air 01/18/19 20:00 98.1 99 17 125/84 (98) 98 Intake and Output 01/18/19 01/19/19 19:00 07:00 Output Total 700 ml Balance -700 ml Output Urine Total 700 ml # Voids 2 5 Laboratory Tests 01/19/19 05:15: Sodium Level 140, Potassium Level 4.1, Chloride Level 103, Carbon Dioxide Level 27, Anion Gap 10, Blood Urea Nitrogen 30H, Creatinine 1.2, Estimat Glomerular Filtration Rate > 60, Glucose Level 83, Calcium Level 9.4, Digoxin Level 1.0 Height (Feet): 5 Height (Inches): 6.00 Weight (Pounds): 121 Objective General Appearance: no apparent distress EENT: PERRL/EOMI Neck: supple Cardiovascular: normal rate, regular rhythm, no JVD Respiratory/Chest: lungs clear Abdomen: soft Extremities: normal range of motion Neurologic: director customer II-XII grossly normal Dewey Flores M.D. Jan 19, 2019 12:53
--- NOTE | 2019-01-19 13:43 | Hematology/Onc Progress Note ---
Assessment/Plan Assessment/Plan # Anemia of chronic disease due to underlying chronic medical issues, multifactorial --> Anemia workup has been reviewed. Ferritin 83, TIBC 242 --> No evidence of hemolysis is noted, peripheral smear has been reviewed. --> Hgb goal >7. Transfuse prn. --> Epogen or iron at this time is not particularly indicated --> Medications have been reviewed --> hgb trend 14.1-->12.5--> 12.3-->11-->11.2-->10-->14.1-->13.4 --> get labs in few dayys # Thrombocytopenia - potential causes multifactorial, evaluate liver and viral etiologies to begin, also could be related to underlying medications patient has received. --> Hep panel and HIV on PRIOR admission was negative --> US abd negative for cirrhosis and hsm --> Peripheral smear ordered to evaluate for blasts/schistocytes, none noted --> abx and other meds have been reviewed (one contributor could be depakote) --> ok for ppx if plt >50k w/ either heparin or lovenox --> Plt trend 118-->169k-->187k--> 102K->133k-->154k-->182k-->258-->252 # FTT with decreased bmi on admission --> began on mirtazapine, to continue --> daily weight and monitor # Atelectasis, optimize pulmonary hygiene/mobilize as tolerated --> on cxr appears stable --> per pulm recs # Paroxysmal AFib, per cardiology recs--> on noac --> on eliquis (ok to continue) --> dig per Dr. May # Hypertension --> controlled, sbp goal <140 --> as per cards # Hypothyroidism --> Synthroid po to continue # Lactic acidosis --> has resolved # MACARENA which has resolved --> per renal care # Psych d/o --> per psych on depak, zyprexa # Placement pending --> rehab, and pt/ot --> difficult with placement with insurance --> daily dw cms The timing of this note does not necessarily reflect the time of the patient was seen. Greatly appreciate consultation! Subjective Constitutional: Denies: no symptoms, chills, fever, malaise, weakness, other HEENT: Denies: no symptoms, eye pain, blurred vision, tearing, double vision, ear pain, ear discharge, nose pain, nose congestion, throat pain, throat swelling, mouth pain, mouth swelling, other Cardiovascular: Denies: no symptoms, chest pain, edema, irregular heart rate, lightheadedness, palpitations, syncope, other Respiratory: Denies: no symptoms, cough, shortness of breath, SOB with excertion, SOB at rest, sputum, wheezing, other Genitourinary: Denies: no symptoms, burning, discharge, frequency, flank pain, hematuria, incontinence, pain, urgency, other Neurologic/Psychiatric: Denies: no symptoms, anxiety, depressed, emotional problems, headache, numbness, paresthesia, pre-existing deficit, seizure, tingling, tremors, weakness, other Endocrine: Denies: no symptoms, excessive sweating, flushing, intolerance to cold, intolerance to heat, increased hunger, increased thirst, increased urine, unexplained weight gain, unexplained weight loss, other Hematologic/Lymphatic: Denies: no symptoms, anemia, easy bleeding, easy bruising, adenopathy, other Allergies: Coded Allergies: RISPERIDONE (Unverified Allergy, Unknown, 07/04/18) ZIPRASIDONE (Verified Allergy, Unknown, 06/30/18) Subjective 11/06: Pt resting in bed. No acute distress. DC planning. 11/08: Pt asleep in bed. No acute events. 11/10: Pt stable, no signs of acute distress or SOB. Venous duplex negative. 11/11: Pt resting in bed. Afebrile, no sob. MRI brain pending. 11/12: Pt in bed, sleeping. No respiratory distress noted. DC planning. 11/13: Pt awake and alert, refused morning meds. No signs of SOB or pain observed. Plt count significantly improved overnight. 11/15: Pt denies pain, no complaints of dyspnea 11/17: Pt resting in bed no chest pain or dyspnea, no other complaints 11/18: unable to place picc given do not have consent 11/20: no acute events reported. 11/21: pt refused am labs as well as am meds. h/h stable from prior labs. 11/22: pt no acute distress. Afebrile, VS reviewed. 11/23: no events reported, no f/c noted 11/24: refusing to participate in exam, labs have been reviewed 11/25: eating ensure this am, discharge planning pending, deandre FERRARI 11/26: on noac, continues, no bleeding, hgb is 11.2 11/27: refusing labs this am, discussed with him importance 11/28: resting comfortably, no acute events, no bleeding reported, no night sweats 11/29: no events, no bleeding reported, no night sweats 11/30: no events, no bleeding, no chills, no major night sweats 12/01: getting rehab, pt/ot as needed, no f/c 12/02: walking around the priest with a FWW, says feeling better 12/03: given ativan overnight, feeling better 12/04: awake and alert, no acute events, placement pending 12/05: awake and alert, resting in bed, no acute events. 12/06: anxious and aggravated, vs stable, placement pending per gearcase assembler 12/07: no events to report, no f/c, no night sweats refusing po, will start on mirtazpine 12/08: no events noted, no f/c, no night sweats, no bleeding noted 12/09: no events, eating breakfast, cbc again reordered 12/10: no fevers or chills noted, no bleeding, no events, pending placement 12/11: walking around in hallway, no complaints, eating 12/12: labs reviewed, cbc still refusing in the am 12/13: asleep, still refusing labs, no fc 12/14: no events noted, no bleeding, no fc 12/15: not agitated, sinemet has been started per neuro 12/16: dc when public guardian raises money 12/17: dc planning as early as today, alert no complaints this am 12/18: no f/c, no night sweats, no bleeding noted 12/20: is on eliquis, sleeping, i woke him up, again refusing cbc 12/21: no bleeding, no chill, no night sweats, examined with rn, refusing to be seen 12/22: no events to report, no bleeding, no f/c 12/23: on eliquis, has been refusing POs, refusing exam too 12/24: sleeping, arousable, no major events 12/25: no events no bleeding, no chills noted, refusing again exam, and labs 12/27: pending placement, no new recs, no f/c noted, no bleeding 12/28: no fevers or chills noted, no bleeding, still refusing lab draws 12/29: recommended he have labs drawn, he refused 12/30: sergio again reordered labs, he says wont do them 12/31: pending placement, no f/c, no night sweats, dw cm 01/01: no events, no bleeding, sleeping comfortably in bed 01/04: no overnight events, no seizures, pending placement 01/05: no events, on eliquis to continue at this time 01/06: ao x2, no signs of respiratory distress, no fever, labs refused 01/07: cardizem was given as bp was high, still refusing labs at this time 01/08: cbc reviewed, on apixaban and diltiazem, plt count improved 01/10: overall feeling better, laying in bed, labs reviewed, bp better 01/11: with uncontrolled afib, given trop check and dig with Toluie 01/12: awake and confused, on bilat wrist restraints, on eliquis 01/13: reviewed psych and cards recs, on depak/zyprexa and eliquis 01/14: remains agitated at this time, no f/c, have ordered for repeat cbc 01/15: on restraints, no fever or chills, denies pain, labs reviewed 01/16: overall improved, allowed to be examined, no complaints 01/17: no bleeding, no major changes 01/19: no events, no bleeding, labs have been reviewed Objective Objective Current Medications Medications (Trade) Dose Ordered Sig/Eduardo Route PRN Reason Start Time Stop Time Status Last Admin Dose Admin Amiodarone HCl (Cordarone) 400 mg DAILY ORAL 01/18/19 09:00 02/11/19 20:59 01/19/19 08:24 Apixaban (Eliquis) 5 mg BID ORAL 01/16/19 18:00 02/08/19 08:59 01/19/19 08:25 Digoxin (Lanoxin) 0.125 mg DAILY ORAL 01/17/19 09:00 02/11/19 08:59 01/19/19 08:25 Diltiazem HCl (Cardizem CD) 240 mg DAILY ORAL 01/17/19 09:00 02/08/19 08:59 01/19/19 08:25 Divalproex Sodium (Depakote ER) 500 mg BEDTIME ORAL 01/16/19 21:00 02/11/19 20:59 01/18/19 20:38 Levothyroxine Sodium (Synthroid) 25 mcg DAILY@0630 ORAL 01/17/19 06:30 02/08/19 06:29 01/19/19 07:05 Lorazepam (Ativan 2mg/ml 1ml) 1 mg Q4H PRN IV For Anxiety 01/16/19 16:30 01/19/19 16:29 01/19/19 08:25 Olanzapine (ZyPREXA) 30 mg QHS ORAL 01/16/19 21:00 02/08/19 20:59 01/18/19 20:37 Quetiapine Fumarate (SEROquel) 50 mg Q12H PRN ORAL for agitation 01/16/19 16:30 02/15/19 16:29 01/18/19 14:19 Last 24 Hour Vital Signs Date Time Temp Pulse Resp B/P (MAP) Pulse Ox O2 Delivery O2 Flow Rate FiO2 01/19/19 12:00 98.4 97 20 104/68 (80) 99 01/19/19 09:00 Room Air Room Air 01/19/19 08:25 102 116/69 01/19/19 08:25 102 01/19/19 08:16 98.0 102 19 116/69 (85) 98 01/19/19 04:00 98.2 89 18 140/89 (106) 95 01/18/19 21:00 Room Air Room Air 01/18/19 20:00 98.1 99 17 125/84 (98) 98 01/18/19 12:00 98.3 111 19 122/73 (89) 100 01/18/19 09:10 119 126/82 01/18/19 09:10 119 01/18/19 09:00 Room Air Room Air 01/18/19 08:00 98.2 119 19 126/82 (97) 99 01/17/19 21:00 Room Air Room Air 01/17/19 20:00 97.7 91 18 128/69 (88) 95 01/17/19 16:00 97.6 90 18 136/90 (105) 96 Intake and Output 01/18/19 01/19/19 19:00 07:00 Output Total 700 ml Balance -700 ml Output Urine Total 700 ml # Voids 2 5 Labs Test 01/19/19 05:15 Sodium Level 140 MMOL/L (136-145) Potassium Level 4.1 MMOL/L (3.5-5.1) Chloride Level 103 MMOL/L (98-107) Carbon Dioxide Level 27 MMOL/L (21-32) Anion Gap 10 mmol/L (5-15) Blood Urea Nitrogen 30 mg/dL (7-18) Creatinine 1.2 MG/DL (0.55-1.30) Estimat Glomerular Filtration Rate > 60 mL/min (>60) Glucose Level 83 MG/DL (74-106) Calcium Level 9.4 MG/DL (8.5-10.1) Digoxin Level 1.0 NG/ML (0.5-2.0) Height (Feet): 5 Height (Inches): 6.00 Weight (Pounds): 121 Objective PE: VITAL SIGNS: Have been reviewed. CHEST: Clear to auscultation. CV: Regular rate and rhythm. No murmurs or extra sounds. GI: Soft, nontender, and nondistended. No organomegaly. EX: No edema. Moves all four extremities. NEURO: Sensory intact to light touch. Reflexes are equal on both sides. Bennie Goss MD Jan 19, 2019 13:43
--- NOTE | 2019-01-19 15:34 | NUR ---
*-* INSURANCE *-* UPDATED CLINICALS AND REVIEWS HAVE BEEN FAXED TO: [facility] F:[phone]
[2019-01-19 16:00] VITALS: BP 127/74
--- NOTE | 2019-01-19 17:04 | NUR ---
NURSE NOTES: RETRIEVED ATIVAN IV TO BE GIVEN TO PATIENT. WENT TO BEDSIDE AND SHOWED ON E-MAR, MED HAD BEEN DISCONTINUED. ATTEMPTED TO RETURN MEDICATION TO [facility] BUT WAS UNABLE TO DUE TO MEDICATION "GREYED" OUT ON PATIENT'S PROFILE. CONTACTED ONLINE CONTENT COORDINATOR TO EXPLAIN. CAME TO [facility]. EXPLAINED DILEMMA TO CEASAR AND JUSTINA. UNABLE TO RETURN MED DUE TO IT BEING DISCONTINUED ON MED PROFILE. SUGGESTED BY JUSTINA, GIVE UNOPENED ATIVAN IV TO CEASAR SO THEY CAN MANUALLY RETURN MEDICATION.
--- NOTE | 2019-01-19 17:53 | NUR ---
NURSE NOTES: PATIENT CALM AND COOPERATIVE. TAKING MEDICATIONS AND EATING A FULL MEAL. HOWEVER, WILL NOT FOLLOW SIMPLE COMMANDS, ( I.E, USING CALL LIGHT FOR ASSISTANCE,ETC). BED ALARM ACTIVATED. PATIENT USES REPETITON TO REMOVE AND REPLACE BED LINING. PATIENT STATES HIS FATHER IS MAKING HIM DO IT OVER AND OVER AGAIN. ATTEMPTED SEVERAL TIMES TO REDIRECT PATIENT, WILL DO FOR A VERY SHORT TIME AND REPEATS TAKING OFF AND PUTTING BED LINENS ON.
--- NOTE | 2019-01-19 19:22 | NUR ---
HAND-OFF: Report given to CECI ORTIZ RN.
[2019-01-19 20:00] VITALS: BP 122/61
[2019-01-19] MEDS: Depakote ER 500mg tab ORAL SCH (21:06)
[2019-01-19] MEDS: OLANZapine 10mg tab ORAL SCH (21:06)
--- NOTE | 2019-01-19 22:58 | NUR ---
NURSE NOTES: Patient ambulating in the hallway with RN assist. Re oriented to surroundings and patients room. Patient is confused but able to follow simple commands. Due meds given. Needs attended. On seizure precautions. Needs attended. Call light within reach. in stable condition.
[2019-01-20] VITALS: BP 128/62
--- NOTE | 2019-01-20 01:00 | NUR ---
Patient removed IV, armband. bed sheets and side rail paddings. Patient re oriented to the floor.
--- NOTE | 2019-01-20 03:45 | Progress Note ---
DATE: 11/04/2018 SUBJECTIVE: The patient is having episodes of anxiety, illogical, unable to be engaged during the evaluation. Poor insight, needs frequent redirection throughout the day. MENTAL STATUS EXAMINATION: The patient is alert, oriented times self. Mood is agitated. Affect is flat. Thought process, there is paucity of thought content. Thought content, no suicidal or homicidal ideation. ASSESSMENT: 1. The patient is stable at baseline. 2. The patient is not an imminent danger to self or others. PLAN: 1. We will continue current medication. 2. Provide the patient with reality orientation and supportive therapy. Anna Mathew M.D. DR: ROSENDO/vtg JOB#: [id number] CC:
[2019-01-20 04:00] VITALS: BP 114/67
[2019-01-20] MEDS: Levothyroxine 25mcg tab ORAL SCH (06:31)
--- NOTE | 2019-01-20 06:50 | NUR ---
NURSE NOTES: IV site placed on R Hand 22g. Side rails padded. Patient asleep at his bed.
--- NOTE | 2019-01-20 07:31 | NUR ---
NURSE NOTES: WALKING ROUNDS DOEN WITH OUTGOING RN. PATIENT ASLEEP IN BED. BED IN LOWEST AND LOCKED POSITION. CALL LIGHT WITHIN REACH WITH BED ALARM ACTIVATED.
[2019-01-20 08:00] VITALS: BP 126/80
--- NOTE | 2019-01-20 08:40 | NUR ---
NURSE NOTES: PATIENT AWAKE AND DISRUPTIVE. THREW BREAKFAST TRAY AND ALL ITEMS ONTO FLOOR AND FLIPPED OVER THE OVER BED TABLE. PATIENT STATES HE HEARS HIS FATHER TELL HIM TO DO THESE THINGS. ATTEMPTED RE-DIRECT BUT UNSUCCESSFUL. PATIENT IN AND OOB ACTIVATING BED ALARM. GAIT UNSTEADY REQUIRING ASSISTANCE. PLACED CALL TO PCP. MED ORDERS RECEIVED AND CARRIED OUT.
[2019-01-20] MEDS: dilTIAZem HCl CD 240mg cap ORAL SCH (08:42)
[2019-01-20] MEDS: Amiodarone 200mg tab ORAL SCH (08:42)
[2019-01-20] MEDS: Digoxin 0.125mg tab ORAL SCH (08:42)
[2019-01-20] MEDS: Eliquis 5mg tablet ORAL SCH ×2 (08:42→18:13)
[2019-01-20] MEDS: LORazepam Inj 2mg/ml 1ml IV PRN (08:57)
--- NOTE | 2019-01-20 11:33 | Cardiac Electrophysiology PN ---
Assessment/Plan Assessment/Plan 1. PAF with RVR up to 160s per ECG on 01/02, 01/07, 01/09 and 01/10/19. Converted to SR. Continue Dig 0.125 daily, Cardizem CD 240, Eliquis and decrease Amiodarone to 200 daily 2. HTN On Cardizem CD 240 3. Dementia 4. Behavioral disorder DW RN Subjective Subjective No CP or SOB off restraints. Was agitated earlier. Objective Last 24 Hour Vital Signs Date Time Temp Pulse Resp B/P (MAP) Pulse Ox O2 Delivery O2 Flow Rate FiO2 01/20/19 09:00 Room Air 01/20/19 08:42 104 126/80 01/20/19 08:42 104 01/20/19 08:00 97.3 18 126/80 (95) 95 01/20/19 04:00 98.5 99 18 114/67 (83) 97 01/20/19 00:00 99.1 98 17 128/62 (84) 96 01/19/19 21:00 Room Air Room Air 01/19/19 20:00 98.3 101 18 122/61 (81) 96 01/19/19 16:00 98.0 102 20 127/74 (91) 99 01/19/19 12:00 98.4 97 20 104/68 (80) 99 Intake and Output 01/19/19 01/20/19 19:00 07:00 Intake Total 480 ml 360 ml Balance 480 ml 360 ml Intake Oral 480 ml 360 ml # Voids 3 4 # Bowel Movements 1 Objective General Appearance: no apparent distress EENT: PERRL/EOMI Cardiovascular: RRR Abdomen: normal bowel sounds Neurologic: mainframe developer II-XII grossly normal Armin May MD Jan 20, 2019 11:33
[2019-01-20 12:00] VITALS: BP 101/62
--- NOTE | 2019-01-20 12:40 | General Progress Note ---
Assessment/Plan Status: stable, unchanged Assessment/Plan: 63 y/o man with hx of paroxysmal atrial fibrillation, presented to the hospital with pre-syncope, found to have rapid atrial fibrillation. Patient was admitted with a long hospital course. Initially he was found to be in A. fib with RVR was consulted by cardiology. Echocardiogram was unremarkable with normal EF. Patient has been titrated on several medications for heart rate control and is currently on diltiazem 240 mg p.o. daily. Patient was also continued on Eliquis for stroke prevention given past medical history. Patient was continued on levothyroxine however given his most recent results his dose was changed from 50 MCG to 25 MCG daily. Patient has been stable and medically cleared for discharge and discharged to assisted living facility called [facility] in [facility]. However, due to insurance problem he was denied and returned to the ER. # Hypertension - Monitor BP, continue Cardizem CD 240 #PAF Converted to SR. Continue Dig 0.125 daily, Cardizem CD 240, Amiodarone 400 daily (reduced by cardiology) and Eliquis #Anemia due to chronic illness #Thrombocytopenia, resolved - Hgb and platelet count appeared to be at baseline, seen by Hematology, no new changes recommended. Labs stable. #unstable gait -continue PT #Dementia with behavorial disturbance -psych meds restarted -psychiatry consulted # Disposition Patient discharged to assisted facility on 01/08/19 and returned shortly after denial. Patient pending placement. Difficult placement. Per rn case management no insurance available. [facility]. Need to continue efforts by CM and SW to place. Patient is medically stable for discharge time of this note may not reflect time of encounter. I spent 40 minutes on this encounter. Greater than 50% spent of care coordination and counseling. Subjective Date patient seen: Jan 20, 2019 ROS Limited/Unobtainable: Yes Allergies: Coded Allergies: RISPERIDONE (Unverified Allergy, Unknown, 07/04/18) ZIPRASIDONE (Verified Allergy, Unknown, 06/30/18) Subjective Seen and examined. No complaints,medically stable Objective Last 24 Hour Vital Signs Date Time Temp Pulse Resp B/P (MAP) Pulse Ox O2 Delivery O2 Flow Rate FiO2 01/20/19 12:00 98.1 82 20 101/62 (75) 95 01/20/19 09:00 Room Air 01/20/19 08:42 104 126/80 01/20/19 08:42 104 01/20/19 08:00 97.3 18 126/80 (95) 95 01/20/19 04:00 98.5 99 18 114/67 (83) 97 01/20/19 00:00 99.1 98 17 128/62 (84) 96 01/19/19 21:00 Room Air Room Air 01/19/19 20:00 98.3 101 18 122/61 (81) 96 01/19/19 16:00 98.0 102 20 127/74 (91) 99 Intake and Output 01/19/19 01/20/19 19:00 07:00 Intake Total 480 ml 360 ml Balance 480 ml 360 ml Intake Oral 480 ml 360 ml # Voids 3 4 # Bowel Movements 1 Height (Feet): 5 Height (Inches): 6.00 Weight (Pounds): 122 Objective General Appearance: no apparent distress EENT: PERRL/EOMI Neck: supple Cardiovascular: normal rate, regular rhythm, no JVD Respiratory/Chest: lungs clear Abdomen: soft Extremities: normal range of motion Neurologic: rehabilitation aide II-XII grossly normal Dewey Flores M.D. Jan 20, 2019 12:40
--- NOTE | 2019-01-20 15:17 | NUR ---
*-* INSURANCE *-* UPDATED CLINICALS HAVE BEEN FAXED TO: [facility] F:[phone]
[2019-01-20 16:00] VITALS: BP 105/61
--- NOTE | 2019-01-20 16:34 | NUR ---
CASE MANAGEMENT:REVIEW 01/20/19 SI: HYPOTENSION. AFIB W/RVR 98.1 82 20 101/62 95% ON RA IS: AMIODARONE PO Q12 DEPAKOTE PO QHS DIGOXIN PO QD SYNTHROID PO QD ZYPREXA PO QHS CARDIZEM PO QD ELIQUIS PO BID SEROQUEL PO Q12 PRN : TELEMETRY STATUS PLAN: SEEKING PLACEMENT
--- NOTE | 2019-01-20 17:25 | NUR ---
NURSE NOTES: AFTER ADMINISTRATION OF ATIVAN EARLIER PATIENT IS CALM, COOPERATIVE AND PLEASANT. WILL USE CALL LIGHT FOR ASSISTANCE. BED IN LOW AND LOCKED POSITION. CALL LIGHT WITHIN REACH.
--- NOTE | 2019-01-20 18:29 | Hematology/Onc Progress Note ---
Assessment/Plan Assessment/Plan # Anemia of chronic disease due to underlying chronic medical issues, multifactorial --> Anemia workup has been reviewed. Ferritin 83, TIBC 242 --> No evidence of hemolysis is noted, peripheral smear has been reviewed. --> Hgb goal >7. Transfuse prn. --> Epogen or iron at this time is not particularly indicated --> Medications have been reviewed --> hgb trend 14.1-->12.5--> 12.3-->11-->11.2-->10-->14.1-->13.4 --> get labs in few dayys # Thrombocytopenia - potential causes multifactorial, evaluate liver and viral etiologies to begin, also could be related to underlying medications patient has received. --> Hep panel and HIV on PRIOR admission was negative --> US abd negative for cirrhosis and hsm --> Peripheral smear ordered to evaluate for blasts/schistocytes, none noted --> abx and other meds have been reviewed (one contributor could be depakote) --> ok for ppx if plt >50k w/ either heparin or lovenox --> Plt trend 118-->169k-->187k--> 102K->133k-->154k-->182k-->258-->252 # FTT with decreased bmi on admission --> began on mirtazapine, to continue --> daily weight and monitor # Atelectasis, optimize pulmonary hygiene/mobilize as tolerated --> on cxr appears stable --> per pulm recs # Paroxysmal AFib, per cardiology recs--> on noac --> on eliquis (ok to continue) --> dig per Dr. May # Hypertension --> controlled, sbp goal <140 --> as per cards # Hypothyroidism --> Synthroid po to continue # Lactic acidosis --> has resolved # MACARENA which has resolved --> per renal care # Psych d/o --> per psych on depak, zyprexa # Placement pending --> rehab, and pt/ot --> difficult with placement with insurance --> daily dw cms The timing of this note does not necessarily reflect the time of the patient was seen. Greatly appreciate consultation! Subjective Allergies: Coded Allergies: RISPERIDONE (Unverified Allergy, Unknown, 07/04/18) ZIPRASIDONE (Verified Allergy, Unknown, 06/30/18) Subjective 11/06: Pt resting in bed. No acute distress. DC planning. 11/08: Pt asleep in bed. No acute events. 11/10: Pt stable, no signs of acute distress or SOB. Venous duplex negative. 11/11: Pt resting in bed. Afebrile, no sob. MRI brain pending. 11/12: Pt in bed, sleeping. No respiratory distress noted. DC planning. 11/13: Pt awake and alert, refused morning meds. No signs of SOB or pain observed. Plt count significantly improved overnight. 11/15: Pt denies pain, no complaints of dyspnea 11/17: Pt resting in bed no chest pain or dyspnea, no other complaints 11/18: unable to place picc given do not have consent 11/20: no acute events reported. 11/21: pt refused am labs as well as am meds. h/h stable from prior labs. 11/22: pt no acute distress. Afebrile, VS reviewed. 11/23: no events reported, no f/c noted 11/24: refusing to participate in exam, labs have been reviewed 11/25: eating ensure this am, discharge planning pending, deandre FERRARI 11/26: on noac, continues, no bleeding, hgb is 11.2 11/27: refusing labs this am, discussed with him importance 11/28: resting comfortably, no acute events, no bleeding reported, no night sweats 11/29: no events, no bleeding reported, no night sweats 11/30: no events, no bleeding, no chills, no major night sweats 12/01: getting rehab, pt/ot as needed, no f/c 12/02: walking around the priest with a FWW, says feeling better 12/03: given ativan overnight, feeling better 12/04: awake and alert, no acute events, placement pending 12/05: awake and alert, resting in bed, no acute events. 12/06: anxious and aggravated, vs stable, placement pending per outpatient case manager 12/07: no events to report, no f/c, no night sweats refusing po, will start on mirtazpine 12/08: no events noted, no f/c, no night sweats, no bleeding noted 12/09: no events, eating breakfast, cbc again reordered 12/10: no fevers or chills noted, no bleeding, no events, pending placement 12/11: walking around in hallway, no complaints, eating 12/12: labs reviewed, cbc still refusing in the am 12/13: asleep, still refusing labs, no fc 12/14: no events noted, no bleeding, no fc 12/15: not agitated, sinemet has been started per neuro 12/16: dc when public guardian raises money 12/17: dc planning as early as today, alert no complaints this am 12/18: no f/c, no night sweats, no bleeding noted 12/20: is on eliquis, sleeping, i woke him up, again refusing cbc 12/21: no bleeding, no chill, no night sweats, examined with rn, refusing to be seen 12/22: no events to report, no bleeding, no f/c 12/23: on eliquis, has been refusing POs, refusing exam too 12/24: sleeping, arousable, no major events 12/25: no events no bleeding, no chills noted, refusing again exam, and labs 12/27: pending placement, no new recs, no f/c noted, no bleeding 12/28: no fevers or chills noted, no bleeding, still refusing lab draws 12/29: recommended he have labs drawn, he refused 12/30: sergio again reordered labs, he says wont do them 12/31: pending placement, no f/c, no night sweats, dw cm 01/01: no events, no bleeding, sleeping comfortably in bed 01/04: no overnight events, no seizures, pending placement 01/05: no events, on eliquis to continue at this time 01/06: ao x2, no signs of respiratory distress, no fever, labs refused 01/07: cardizem was given as bp was high, still refusing labs at this time 01/08: cbc reviewed, on apixaban and diltiazem, plt count improved 01/10: overall feeling better, laying in bed, labs reviewed, bp better 01/11: with uncontrolled afib, given trop check and dig with Toluie 01/12: awake and confused, on bilat wrist restraints, on eliquis 01/13: reviewed psych and cards recs, on depak/zyprexa and eliquis 01/14: remains agitated at this time, no f/c, have ordered for repeat cbc 01/15: on restraints, no fever or chills, denies pain, labs reviewed 01/16: overall improved, allowed to be examined, no complaints 01/17: no bleeding, no major changes 01/19: no events, no bleeding, labs have been reviewed 01/20: vs stable, no f/c, on seroquel, no complaints, off restraints, no sob Objective Objective Current Medications Medications (Trade) Dose Ordered Sig/Eduardo Route PRN Reason Start Time Stop Time Status Last Admin Dose Admin Amiodarone HCl (Cordarone) 200 mg DAILY ORAL 01/21/19 09:00 02/11/19 20:59 Apixaban (Eliquis) 5 mg BID ORAL 01/16/19 18:00 02/08/19 08:59 01/20/19 18:13 Digoxin (Lanoxin) 0.125 mg DAILY ORAL 01/17/19 09:00 02/11/19 08:59 01/20/19 08:42 Diltiazem HCl (Cardizem CD) 240 mg DAILY ORAL 01/17/19 09:00 02/08/19 08:59 01/20/19 08:42 Divalproex Sodium (Depakote ER) 500 mg BEDTIME ORAL 01/16/19 21:00 02/11/19 20:59 01/19/19 21:06 Levothyroxine Sodium (Synthroid) 25 mcg DAILY@0630 ORAL 01/17/19 06:30 02/08/19 06:29 01/20/19 06:31 Lorazepam (Ativan 2mg/ml 1ml) 1 mg Q4H PRN IV For Anxiety 01/20/19 08:49 01/27/19 08:48 01/20/19 08:57 Olanzapine (ZyPREXA) 30 mg QHS ORAL 01/16/19 21:00 02/08/19 20:59 01/19/19 21:06 Quetiapine Fumarate (SEROquel) 50 mg Q12H PRN ORAL for agitation 01/16/19 16:30 02/15/19 16:29 01/18/19 14:19 Last 24 Hour Vital Signs Date Time Temp Pulse Resp B/P (MAP) Pulse Ox O2 Delivery O2 Flow Rate FiO2 01/20/19 16:00 97.5 85 18 105/61 (76) 97 01/20/19 12:00 98.1 82 20 101/62 (75) 95 01/20/19 09:00 Room Air 01/20/19 08:42 104 126/80 01/20/19 08:42 104 01/20/19 08:00 97.3 18 126/80 (95) 95 01/20/19 04:00 98.5 99 18 114/67 (83) 97 01/20/19 00:00 99.1 98 17 128/62 (84) 96 01/19/19 21:00 Room Air Room Air 01/19/19 20:00 98.3 101 18 122/61 (81) 96 01/19/19 16:00 98.0 102 20 127/74 (91) 99 01/19/19 12:00 98.4 97 20 104/68 (80) 99 01/19/19 09:00 Room Air Room Air 01/19/19 08:25 102 116/69 01/19/19 08:25 102 01/19/19 08:16 98.0 102 19 116/69 (85) 98 01/19/19 04:00 98.2 89 18 140/89 (106) 95 01/18/19 21:00 Room Air Room Air 01/18/19 20:00 98.1 99 17 125/84 (98) 98 Intake and Output 01/19/19 01/20/19 19:00 07:00 Intake Total 480 ml 360 ml Balance 480 ml 360 ml Intake Oral 480 ml 360 ml # Voids 3 4 # Bowel Movements 1 Labs Test 01/19/19 05:15 Sodium Level 140 MMOL/L (136-145) Potassium Level 4.1 MMOL/L (3.5-5.1) Chloride Level 103 MMOL/L (98-107) Carbon Dioxide Level 27 MMOL/L (21-32) Anion Gap 10 mmol/L (5-15) Blood Urea Nitrogen 30 mg/dL (7-18) Creatinine 1.2 MG/DL (0.55-1.30) Estimat Glomerular Filtration Rate > 60 mL/min (>60) Glucose Level 83 MG/DL (74-106) Calcium Level 9.4 MG/DL (8.5-10.1) Digoxin Level 1.0 NG/ML (0.5-2.0) Height (Feet): 5 Height (Inches): 6.00 Weight (Pounds): 122 Objective PE: VITAL SIGNS: Have been reviewed. CHEST: Clear to auscultation. CV: Regular rate and rhythm. No murmurs or extra sounds. GI: Soft, nontender, and nondistended. No organomegaly. EX: No edema. Moves all four extremities. NEURO: Sensory intact to light touch. Reflexes are equal on both sides. Bennie Goss MD Jan 20, 2019 18:29
--- NOTE | 2019-01-20 19:19 | NUR ---
HAND-OFF: Report given to KAEL Hicks RN.
--- NOTE | 2019-01-20 19:30 | NUR ---
NURSE NOTES: Patient seen ambulating and wanted to sit outside his room. Calm. No complaint at this time. Instructed to call RN when he needs assistance especially when ambulating. Pt verbalized understanding. Will continue to monitor.
--- NOTE | 2019-01-20 19:30 | Progress Note ---
DATE: 01/20/2019 SUBJECTIVE: The patient's mental condition is unchanged from previous encounter. He has cognitive impairment. Calmer, more manageable. No behavior issues at this time. MENTAL STATUS EXAMINATION: The patient is alert, oriented times self and place. Mood is agitated. Affect is flat. Thought process is concrete. Thought content, no suicidal or homicidal ideations. ASSESSMENT: Stable. PLAN: 1. We will continue current medications. 2. Provide the patient with reality orientation and supportive therapy. Anna Mathew M.D. DR: JUAN JOB#: [id number] CC:
[2019-01-20 20:00] VITALS: BP 142/84
[2019-01-20] MEDS: Depakote ER 500mg tab ORAL SCH (20:11)
[2019-01-20] MEDS: OLANZapine 10mg tab ORAL SCH (20:11)
[2019-01-21] VITALS: BP 141/71
[2019-01-21] MEDS: LORazepam Inj 2mg/ml 1ml IV PRN (01:18)
[2019-01-21] MEDS: Levothyroxine 25mcg tab ORAL SCH (06:15)
--- NOTE | 2019-01-21 07:43 | NUR ---
HAND-OFF: Report given to ELLA Giron.
[2019-01-21 08:00] VITALS: BP 128/70
--- NOTE | 2019-01-21 08:17 | NUR ---
NURSE NOTES: Pt awake bed is in safe position , call light is in reach. Encouraged to wait for assistance for bathroom needs . Needs frequent supervision for impulsive bx
[2019-01-21] MEDS ORDERED: Amiodarone 200mg tab ORAL SCH (09:00)
--- NOTE | 2019-01-21 09:23 | Hematology/Onc Progress Note ---
Assessment/Plan Assessment/Plan # Anemia of chronic disease due to underlying chronic medical issues, multifactorial --> Anemia workup has been reviewed. Ferritin 83, TIBC 242 --> No evidence of hemolysis is noted, peripheral smear has been reviewed. --> Hgb goal >7. Transfuse prn. --> Epogen or iron at this time is not particularly indicated --> Medications have been reviewed --> hgb trend 14.1-->12.5--> 12.3-->11-->11.2-->10-->14.1-->13.4 --> get labs in few days --> remains on eliquis # Thrombocytopenia - potential causes multifactorial, evaluate liver and viral etiologies to begin, also could be related to underlying medications patient has received. --> Hep panel and HIV on PRIOR admission was negative --> US abd negative for cirrhosis and hsm --> Peripheral smear ordered to evaluate for blasts/schistocytes, none noted --> abx and other meds have been reviewed (one contributor could be depakote) --> ok for ppx if plt >50k w/ either heparin or lovenox --> Plt trend 118-->169k-->187k--> 102K->133k-->154k-->182k-->258-->252 # FTT with decreased bmi on admission --> began on mirtazapine, to continue --> daily weight and monitor # Atelectasis, optimize pulmonary hygiene/mobilize as tolerated --> on cxr appears stable --> per pulm recs # Paroxysmal AFib, per cardiology recs--> on noac --> on eliquis (ok to continue) --> dig per Dr. May # Hypertension --> controlled, sbp goal <140 --> as per cards # Hypothyroidism --> Synthroid po to continue # Lactic acidosis --> has resolved # MACARENA which has resolved --> per renal care # Psych d/o --> per psych on depak, zyprexa # Placement pending --> rehab, and pt/ot --> difficult with placement with insurance --> daily dw cms The timing of this note does not necessarily reflect the time of the patient was seen. Greatly appreciate consultation! Subjective HEENT: Denies: no symptoms, eye pain, blurred vision, tearing, double vision, ear pain, ear discharge, nose pain, nose congestion, throat pain, throat swelling, mouth pain, mouth swelling, other Respiratory: Denies: no symptoms, cough, shortness of breath, SOB with excertion, SOB at rest, sputum, wheezing, other Gastrointestinal/Abdominal: Denies: no symptoms, abdomen distended, abdominal pain, black stools, tarry stools, blood in stool, constipated, diarrhea, difficulty swallowing, nausea, poor appetite, poor fluid intake, rectal bleeding , vomiting, other Genitourinary: Denies: no symptoms, burning, discharge, frequency, flank pain, hematuria, incontinence, pain, urgency, other Neurologic/Psychiatric: Denies: no symptoms, anxiety, depressed, emotional problems, headache, numbness, paresthesia, pre-existing deficit, seizure, tingling, tremors, weakness, other Endocrine: Denies: no symptoms, excessive sweating, flushing, intolerance to cold, intolerance to heat, increased hunger, increased thirst, increased urine, unexplained weight gain, unexplained weight loss, other Hematologic/Lymphatic: Denies: no symptoms, anemia, easy bleeding, easy bruising, adenopathy, other Allergies: Coded Allergies: RISPERIDONE (Unverified Allergy, Unknown, 07/04/18) ZIPRASIDONE (Verified Allergy, Unknown, 06/30/18) Subjective 11/06: Pt resting in bed. No acute distress. DC planning. 11/08: Pt asleep in bed. No acute events. 11/10: Pt stable, no signs of acute distress or SOB. Venous duplex negative. 11/11: Pt resting in bed. Afebrile, no sob. MRI brain pending. 11/12: Pt in bed, sleeping. No respiratory distress noted. DC planning. 11/13: Pt awake and alert, refused morning meds. No signs of SOB or pain observed. Plt count significantly improved overnight. 11/15: Pt denies pain, no complaints of dyspnea 11/17: Pt resting in bed no chest pain or dyspnea, no other complaints 11/18: unable to place picc given do not have consent 11/20: no acute events reported. 11/21: pt refused am labs as well as am meds. h/h stable from prior labs. 11/22: pt no acute distress. Afebrile, VS reviewed. 11/23: no events reported, no f/c noted 11/24: refusing to participate in exam, labs have been reviewed 11/25: eating ensure this am, discharge planning pending, deandre CM 11/26: on noac, continues, no bleeding, hgb is 11.2 11/27: refusing labs this am, discussed with him importance 11/28: resting comfortably, no acute events, no bleeding reported, no night sweats 11/29: no events, no bleeding reported, no night sweats 11/30: no events, no bleeding, no chills, no major night sweats 12/01: getting rehab, pt/ot as needed, no f/c 12/02: walking around the priest with a FWW, says feeling better 12/03: given ativan overnight, feeling better 12/04: awake and alert, no acute events, placement pending 12/05: awake and alert, resting in bed, no acute events. 12/06: anxious and aggravated, vs stable, placement pending per behavioral health case manager 12/07: no events to report, no f/c, no night sweats refusing po, will start on mirtazpine 12/08: no events noted, no f/c, no night sweats, no bleeding noted 12/09: no events, eating breakfast, cbc again reordered 12/10: no fevers or chills noted, no bleeding, no events, pending placement 12/11: walking around in hallway, no complaints, eating 12/12: labs reviewed, cbc still refusing in the am 12/13: asleep, still refusing labs, no fc 12/14: no events noted, no bleeding, no fc 12/15: not agitated, sinemet has been started per neuro 12/16: dc when public guardian raises money 12/17: dc planning as early as today, alert no complaints this am 12/18: no f/c, no night sweats, no bleeding noted 12/20: is on eliquis, sleeping, i woke him up, again refusing cbc 12/21: no bleeding, no chill, no night sweats, examined with rn, refusing to be seen 12/22: no events to report, no bleeding, no f/c 12/23: on eliquis, has been refusing POs, refusing exam too 12/24: sleeping, arousable, no major events 12/25: no events no bleeding, no chills noted, refusing again exam, and labs 12/27: pending placement, no new recs, no f/c noted, no bleeding 12/28: no fevers or chills noted, no bleeding, still refusing lab draws 12/29: recommended he have labs drawn, he refused 12/30: sergio again reordered labs, he says wont do them 12/31: pending placement, no f/c, no night sweats, dw cm 01/01: no events, no bleeding, sleeping comfortably in bed 01/04: no overnight events, no seizures, pending placement 01/05: no events, on eliquis to continue at this time 01/06: ao x2, no signs of respiratory distress, no fever, labs refused 01/07: cardizem was given as bp was high, still refusing labs at this time 01/08: cbc reviewed, on apixaban and diltiazem, plt count improved 01/10: overall feeling better, laying in bed, labs reviewed, bp better 01/11: with uncontrolled afib, given trop check and dig with Toluie 01/12: awake and confused, on bilat wrist restraints, on eliquis 01/13: reviewed psych and cards recs, on depak/zyprexa and eliquis 01/14: remains agitated at this time, no f/c, have ordered for repeat cbc 01/15: on restraints, no fever or chills, denies pain, labs reviewed 01/16: overall improved, allowed to be examined, no complaints 01/17: no bleeding, no major changes 01/19: no events, no bleeding, labs have been reviewed 01/20: vs stable, no f/c, on seroquel, no complaints, off restraints, no sob 01/21: no bleeding on eliquis, deandre rn, patient feeling better, awaiting placement Objective Objective Current Medications Medications (Trade) Dose Ordered Sig/Eduardo Route PRN Reason Start Time Stop Time Status Last Admin Dose Admin Amiodarone HCl (Cordarone) 200 mg DAILY ORAL 01/21/19 09:00 02/11/19 20:59 Apixaban (Eliquis) 5 mg BID ORAL 01/16/19 18:00 02/08/19 08:59 01/20/19 18:13 Digoxin (Lanoxin) 0.125 mg DAILY ORAL 01/17/19 09:00 02/11/19 08:59 01/20/19 08:42 Diltiazem HCl (Cardizem CD) 240 mg DAILY ORAL 01/17/19 09:00 02/08/19 08:59 01/20/19 08:42 Divalproex Sodium (Depakote ER) 500 mg BEDTIME ORAL 01/16/19 21:00 02/11/19 20:59 01/20/19 20:11 Levothyroxine Sodium (Synthroid) 25 mcg DAILY@0630 ORAL 01/17/19 06:30 02/08/19 06:29 01/21/19 06:15 Lorazepam (Ativan 2mg/ml 1ml) 1 mg Q4H PRN IV For Anxiety 01/20/19 08:49 01/27/19 08:48 01/21/19 01:18 Olanzapine (ZyPREXA) 30 mg QHS ORAL 01/16/19 21:00 02/08/19 20:59 01/20/19 20:11 Quetiapine Fumarate (SEROquel) 50 mg Q12H PRN ORAL for agitation 01/16/19 16:30 02/15/19 16:29 01/20/19 22:29 Last 24 Hour Vital Signs Date Time Temp Pulse Resp B/P (MAP) Pulse Ox O2 Delivery O2 Flow Rate FiO2 01/21/19 00:00 97.7 86 19 141/71 (94) 95 01/20/19 21:00 Room Air 01/20/19 20:00 98.5 92 20 142/84 (103) 97 01/20/19 16:00 97.5 85 18 105/61 (76) 97 01/20/19 12:00 98.1 82 20 101/62 (75) 95 01/20/19 09:00 Room Air 01/20/19 08:42 104 126/80 01/20/19 08:42 104 01/20/19 08:00 97.3 18 126/80 (95) 95 01/20/19 04:00 98.5 99 18 114/67 (83) 97 01/20/19 00:00 99.1 98 17 128/62 (84) 96 01/19/19 21:00 Room Air Room Air 01/19/19 20:00 98.3 101 18 122/61 (81) 96 01/19/19 16:00 98.0 102 20 127/74 (91) 99 01/19/19 12:00 98.4 97 20 104/68 (80) 99 Intake and Output 01/20/19 01/21/19 18:59 06:59 Intake Total 480 ml 400 ml Balance 480 ml 400 ml Intake Oral 480 ml 400 ml # Voids 3 5 # Bowel Movements 2 Labs Test 01/19/19 05:15 Sodium Level 140 MMOL/L (136-145) Potassium Level 4.1 MMOL/L (3.5-5.1) Chloride Level 103 MMOL/L (98-107) Carbon Dioxide Level 27 MMOL/L (21-32) Anion Gap 10 mmol/L (5-15) Blood Urea Nitrogen 30 mg/dL (7-18) Creatinine 1.2 MG/DL (0.55-1.30) Estimat Glomerular Filtration Rate > 60 mL/min (>60) Glucose Level 83 MG/DL (74-106) Calcium Level 9.4 MG/DL (8.5-10.1) Digoxin Level 1.0 NG/ML (0.5-2.0) Height (Feet): 5 Height (Inches): 6.00 Weight (Pounds): 122 Objective PE: VITAL SIGNS: Have been reviewed. CHEST: Clear to auscultation. CV: Regular rate and rhythm. No murmurs or extra sounds. GI: Soft, nontender, and nondistended. No organomegaly. EX: No edema. Moves all four extremities. NEURO: Sensory intact to light touch. Reflexes are equal on both sides. Bennie Goss MD Jan 21, 2019 09:23
[2019-01-21] MEDS: dilTIAZem HCl CD 240mg cap ORAL SCH (10:05)
[2019-01-21] MEDS: Eliquis 5mg tablet ORAL SCH (10:06)
[2019-01-21] MEDS: Digoxin 0.125mg tab ORAL SCH (10:07)
--- NOTE | 2019-01-21 10:34 | Cardiac Electrophysiology PN ---
Assessment/Plan Assessment/Plan 1. PAF with RVR up to 160s per ECG on 01/02, 01/07, 01/09 and 01/10/19. Converted to SR. Continue Dig 0.125 daily, Cardizem CD 240, Eliquis and Amiodarone 200 daily Dig level in am 2. HTN On Cardizem CD 240 3. Dementia 4. Behavioral disorder DW RN Subjective Subjective No CP or SOB off restraints.RN at bedside. No tachycardia reported. Objective Last 24 Hour Vital Signs Date Time Temp Pulse Resp B/P (MAP) Pulse Ox O2 Delivery O2 Flow Rate FiO2 01/21/19 10:07 78 01/21/19 10:05 78 142/79 01/21/19 00:00 97.7 86 19 141/71 (94) 95 01/20/19 21:00 Room Air 01/20/19 20:00 98.5 92 20 142/84 (103) 97 01/20/19 16:00 97.5 85 18 105/61 (76) 97 01/20/19 12:00 98.1 82 20 101/62 (75) 95 Intake and Output 01/20/19 01/21/19 18:59 06:59 Intake Total 480 ml 400 ml Balance 480 ml 400 ml Intake Oral 480 ml 400 ml # Voids 3 5 # Bowel Movements 2 Objective General Appearance: no apparent distress HEENT: PERRL/EOMI. No JVD Cardiovascular: RRR Abdomen: normal bowel sounds Neurologic: commission for the blind director II-XII grossly normal Armin May MD Jan 21, 2019 10:34
--- NOTE | 2019-01-21 11:16 | General Progress Note ---
Assessment/Plan Status: stable, unchanged Assessment/Plan: 63 y/o man with hx of paroxysmal atrial fibrillation, presented to the hospital with pre-syncope, found to have rapid atrial fibrillation. Patient was admitted with a long hospital course. Initially he was found to be in A. fib with RVR was consulted by cardiology. Echocardiogram was unremarkable with normal EF. Patient has been titrated on several medications for heart rate control and is currently on diltiazem 240 mg p.o. daily. Patient was also continued on Eliquis for stroke prevention given past medical history. Patient was continued on levothyroxine however given his most recent results his dose was changed from 50 MCG to 25 MCG daily. Patient has been stable and medically cleared for discharge and discharged to assisted living facility called [facility] in [facility]. However, due to insurance problem he was denied and returned to the ER. # Hypertension - Monitor BP, continue Cardizem CD 240 #PAF Converted to SR. Continue Dig 0.125 daily, Cardizem CD 240, Amiodarone 400 daily (reduced by cardiology) and Eliquis #Anemia due to chronic illness #Thrombocytopenia, resolved - Hgb and platelet count appeared to be at baseline, seen by Hematology, no new changes recommended. Labs stable. #unstable gait -continue PT #Dementia with behavorial disturbance -psych meds restarted -psychiatry consulted # Disposition Patient discharged to assisted facility on 01/08/19 and returned shortly after denial. Patient pending placement. Difficult placement. Per child welfare caseworker no insurance available. Last notes reported [facility]. Need to continue efforts by CM and SW to place. Patient is medically stable for discharge time of this note may not reflect time of encounter. I spent 40 minutes on this encounter. Greater than 50% spent of care coordination and counseling. Subjective Date patient seen: Jan 21, 2019 ROS Limited/Unobtainable: Yes Allergies: Coded Allergies: RISPERIDONE (Unverified Allergy, Unknown, 07/04/18) ZIPRASIDONE (Verified Allergy, Unknown, 06/30/18) Subjective Seen and examined. No complaints,medically stable, he is waiting for placement Objective Last 24 Hour Vital Signs Date Time Temp Pulse Resp B/P (MAP) Pulse Ox O2 Delivery O2 Flow Rate FiO2 01/21/19 10:07 78 01/21/19 10:05 78 142/79 01/21/19 00:00 97.7 86 19 141/71 (94) 95 01/20/19 21:00 Room Air 01/20/19 20:00 98.5 92 20 142/84 (103) 97 01/20/19 16:00 97.5 85 18 105/61 (76) 97 01/20/19 12:00 98.1 82 20 101/62 (75) 95 Intake and Output 01/20/19 01/21/19 18:59 06:59 Intake Total 480 ml 400 ml Balance 480 ml 400 ml Intake Oral 480 ml 400 ml # Voids 3 5 # Bowel Movements 2 Height (Feet): 5 Height (Inches): 6.00 Weight (Pounds): 122 Objective General Appearance: no apparent distress EENT: PERRL/EOMI Neck: supple Cardiovascular: normal rate, regular rhythm, no JVD Respiratory/Chest: lungs clear Abdomen: soft Extremities: normal range of motion Neurologic: 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 Jan 21, 2019 11:16
[2019-01-21 12:00] VITALS: BP 112/70
--- NOTE | 2019-01-21 13:40 | NUR ---
PT NOTE Attempted to see patient for PT treatment. Patient declined to participate with PT, states that he already walked in the hallway which was confirmed by Fela JARAMILLO. Will re-attempt tomorrow.
[2019-01-21] MEDS ORDERED: SEROQUEL25 MG ORAL (14:31)
[2019-01-21] MEDS ORDERED: CARDIZEM CD240 MG ORAL (14:31)
[2019-01-21] MEDS ORDERED: DIVALPROEX SOD500 M2 ORAL (14:31)
[2019-01-21] MEDS ORDERED: PACERONE200 MG ORAL (14:31)
[2019-01-21] MEDS ORDERED: ELIQUIS5 MG ORAL (14:31)
[2019-01-21] MEDS ORDERED: SYNTHROID25 MCG ORAL (14:31)
[2019-01-21] MEDS ORDERED: OLANZAPINE10 MG ORAL (14:31)
[2019-01-21] MEDS ORDERED: Digoxin ORAL (14:31)
--- NOTE | 2019-01-21 14:32 | Discharge Summary ---
Discharge Summary Hospital Course Date of Admission Nov 04, 2018 at 18:55 Date of Discharge 01/21/2019 Admitting Diagnosis GI bleed HPI Frantz Marina is a 63 year old male who was admitted on Nov 04, 2018 at 18:55 for Gastrointestinal Bleed Consultations Cardiology: Dr. May Hematology: Dr. Goss Psychiatry: Dr. Mathew Neurology: Dr. Sharpe Hospital Course 63 y/o man with hx of paroxysmal atrial fibrillation, presented to the hospital with pre-syncope, found to have rapid atrial fibrillation. Patient was admitted with a long hospital course. Initially he was found to be in A. fib with RVR was consulted by cardiology. Echocardiogram was unremarkable with normal EF. Patient has been titrated on several medications for heart rate control and is currently on diltiazem 240 mg p.o. daily. Patient was also continued on Eliquis for stroke prevention given past medical history. Patient was continued on levothyroxine however given his most recent results his dose was changed from 50 MCG to 25 MCG daily. Patient has been stable and medically stable for discharge and discharged to assisted living facility called [facility] in [facility]. However, due to insurance problem he was denied and returned to the ER. # Hypertension - Monitor BP, continue Cardizem CD 240 #PAF Converted to SR. Continue Dig 0.125 daily, Cardizem CD 240, Amiodarone 400 daily (reduced by cardiology) and Eliquis #Anemia due to chronic illness #Thrombocytopenia, resolved - Hgb and platelet count appeared to be at baseline, seen by Hematology, no new changes recommended. Labs stable. #unstable gait -continue PT #Dementia with behavorial disturbance -psych meds restarted -psychiatry consulted # Disposition: [facility]. time of this note may not reflect time of encounter. I spent 40 minutes on this encounter. Discharge Medications New Medications: PENDING: Amiodarone Hcl* (Pacerone*) 200 Mg Tablet 200 MG ORAL DAILY for 30 Days, #30 TAB 1 Refill Apixaban (Eliquis) 5 Mg Tablet 5 MG ORAL BID, #60 TAB 1 Refill PENDING: Apixaban (Eliquis) 5 Mg Tablet 5 MG ORAL BID for 30 Days, #30 TAB PENDING: [Digoxin] () 0.125 MG TAB 0.125 MG ORAL DAILY for 30 Days, #30 Diltiazem Hcl* (Cardizem Cd*) 240 Mg Cap.er.24h 240 MG ORAL DAILY, #30 CAP 1 Refill PENDING: Diltiazem Hcl* (Cardizem Cd*) 240 Mg Cap.er.24h 240 MG ORAL DAILY for 30 Days, #30 CAP PENDING: Divalproex Sodium (Divalproex Sodium Er) 500 Mg Tab.er.24h 500 MG ORAL BEDTIME for 30 Days, #30 TAB Levothyroxine Sodium* (Synthroid*) 25 Mcg Tablet 25 MCG ORAL DAILY@0630, #30 TAB 1 Refill Take in the morning on an empty stomach, at least 30 minutes before food. PENDING: Levothyroxine Sodium* (Synthroid*) 25 Mcg Tablet 25 MCG ORAL DAILY@0630 for 30 Days, #30 TAB Take in the morning on an empty stomach, at least 30 minutes before food. Olanzapine (Olanzapine) 10 Mg Tablet 30 MG ORAL QHS, #30 TAB 1 Refill PENDING: Olanzapine (Olanzapine) 10 Mg Tablet 30 MG ORAL QHS for 30 Days, #30 TAB PENDING: Quetiapine Fumarate* (Seroquel*) 25 Mg Tablet 50 MG ORAL Q12H PRN for 30 Days, #30 TAB Discontinued Medications: Apixaban (Eliquis) 5 Mg Tablet 5 MG PO BID, TAB Atorvastatin Calcium* (Atorvastatin Calcium*) 20 Mg Tablet 20 MG ORAL BEDTIME, TAB Benztropine Mesylate* (Cogentin*) 0.5 Mg Tablet 0.5 MG PO BID, TAB Diltiazem Hcl (Diltiazem Er) 180 Mg Capsule.er 180 MG PO, CAP Divalproex Sodium* (Depakote Er*) 500 Mg Tab.er.24h 500 MG ORAL EVERY 12 HOURS, TAB Gabapentin* (Gabapentin*) 100 Mg Capsule 100 MG ORAL THREE TIMES A DAY, CAP Levothyroxine Sodium (Synthroid) 137 Mcg Tablet 50 MCG ORAL DAILY, TAB Take in the morning on an empty stomach, at least 30 minutes before food. Levothyroxine Sodium* (Levothyroxine Sodium*) 75 Mcg Tablet 75 MCG ORAL DAILY, TAB Take in the morning on an empty stomach, at least 30 minutes before food. Lisinopril (Lisinopril*) 20 Mg Tablet 20 MG ORAL DAILY, TAB Metoprolol Succinate* (Metoprolol Succinate*) 25 Mg Tab.er.24h 25 MG ORAL DAILY, TAB Mirtazapine* (Mirtazapine*) 15 Mg Tablet 30 MG ORAL BEDTIME, TAB Olanzapine* (Zyprexa*) 10 Mg Tablet 20 MG ORAL DAILY, #30 TAB 0 Refills Discharge Condition Upon Discharge: stable Discharge Disposition Patient was discharged to [facility] Dewey Flroes M.D. Jan 21, 2019 14:32
--- NOTE | 2019-01-21 14:51 | NUR ---
DISCHARGE PLANNING PATIENT HAS BEEN ACCEPTED TO AND GOING TO [facility] [facility] T: [phone] FOR NURSE TO NURSE REPORT [facility] HAS BEEN ARRANGED FOR 1500 MANAGER TRANSIT
--- NOTE | 2019-01-21 16:15 | NUR ---
NURSE NOTES: Pt discharge to [facility] . Report given to Brant SNYDER, by charge nurse Pt in stable condition. Personal items given. Discharge packet provided. Transferred via gurney 2 machine oiler Pt made aware of where he was going . " About time " Pt happy that is being discharged. Informed of safety measures needed due to unsteady gait.
--- NOTE | 2019-01-21 16:16 | NUR ---
NURSE NOTES: IV removed , name tag removed , no medications in pharmacy . Per Miriam marriage and family social worker sister is aware of transfer location
--- NOTE | 2019-01-21 16:17 | NUR ---
*-* INSURANCE *-* UPDATED CLINICALS HAVE BEEN FAXED TO: [facility] F:[phone]
--- NOTE | 2019-01-21 20:15 | Progress Note ---
DATE: 01/21/2019 SUBJECTIVE: The patient's mental condition is unchanged since previous encounter. The patient is having cognitive impairment, episodes of anxiety, poor insight. MENTAL STATUS EXAMINATION: Alert, oriented times self, place. He knows he is in the hospital. Mood is anxious. Affect is flat. Thought process, there is a paucity of thought content. Thought content, no suicidal or homicidal ideations. ASSESSMENT: Stable. PLAN: 1. We will continue current medications. 2. Provide the patient reality orientation and supportive therapy. Anna Mathew M.D. DR: JUAN JOB#: [id number] CC:
== END 2019-01-21 16:15 | DRG 309 ==
LOC: EDBD 15:29 → EDSEX 15:29 → EMR 15:48 → 2E 18:55 → EDBEDREQ 20:31 → EDBEDREQSVC 20:31 → 4E 20:41 → EDBEDREQ 20:42 → 4E 11-07 15:49 → 3E 11-20 22:45 → 2E 01-03 01:25 → UNDODISIN 01-08 17:18 → 3E 01-16 16:13
DX: I48.0 Paroxysmal atrial fibrillation (principal); E87.1 Hypo-osmolality and hyponatremia; J98.11 Atelectasis; E87.2 Acidosis; N17.9 Acute kidney failure, unspecified; Z68.1 Body mass index [BMI] 19.9 or less, adult; F02.81 Dementia in other diseases classified elsewhere, unspecified severity, with behavioral disturbance; D69.6 Thrombocytopenia, unspecified; D64.9 Anemia, unspecified; E86.0 Dehydration; N40.0 Benign prostatic hyperplasia without lower urinary tract symptoms; R00.0 Tachycardia, unspecified; I95.9 Hypotension, unspecified; R26.9 Unspecified abnormalities of gait and mobility; E03.9 Hypothyroidism, unspecified; I10 Essential (primary) hypertension; F25.9 Schizoaffective disorder, unspecified; E78.5 Hyperlipidemia, unspecified; G20 Parkinson's disease; R62.7 Adult failure to thrive; Z75.1 Person awaiting admission to adequate facility elsewhere; Z91.19 Patient's noncompliance with other medical treatment and regimen; F41.9 Anxiety disorder, unspecified
CPT/HCPCS: 36415; 71045; 76700; 80048; 80053; 80162; 82306; 82550; 82553; 82607; 82728; 82746; 82962; 83540; 83550; 83735; 83880; 84439; 84443; 84484; 85007; 85025; 86850; 86900; 86901; 86920; 93005; 93306; 93970; 94640; 94664; 96361; 96365; 96375; 99285